=== PATIENT | male | born 1980 | race Caucasian/White ===

== ENCOUNTER 2021-08-03 16:35 | Inpatient (IN) | payer SELFPAY ==
[~2021-08-03] VITALS: Ht 182.8 cm; Wt 80.6 kg
--- OUTSIDE RECORDS SUMMARY | 2021-08-03 16:41 | XMS REPORT | Clinical Summary ---
Author Author [facility] Address Unknown Phone Unavailable Care Team Providers Care Meter Changes Records Clerk Name Role Phone Provider, Notinsystem MODEL USER PCP Unavail able Allergies No known active allergies Medications End Date Status Medication Sig Dispensed Refills Start Date Active hydrOXYzine (ATARAX) 25 Take 1 tablet 15 tablet 0 MG tabletIndications: (25 mg total) 9 Cough by mouth 3 (three) times daily as needed for Anxiety. Active benzonatate (TESSALON) Take 1 15 capsule 0 100 MG capsule (100 9 capsuleIndications: Cough mg total) by mouth 3 (three) times daily as needed for Cough. Active ondansetron (ZOFRAN-ODT) Take 2 30 tablet 0 0 4 MG disintegrating tablets (8 mg 9 tablet total) by mouth every 8 (eight) hours as needed for Nausea. Active Problems No known active problems Social History Date Tobacco Use Types Packs/Day Years Used Current Every Day Smoker Cigarettes 1 Smokeless Tobacco: Never Used Tobacco Cessation: Ready to Quit: Yes; C ounseling Given: Yes Comments Alcohol Use Standard Drinks/Week Not Currently 0 (1 standard drink = 0.6 o z pure alcohol) Control Partners Comments Sexually Active Not Currently Sex Assigned at Date Recorded Not on file Last Filed Vital Signs Reading Time Taken Comments Vital Sign 122/79 06/07/2019 11:35 PM CDT Blood Pressure 75 06/07/2019 11:35 PM CDT Pulse 36.8 C (98.2 F) 06/07/2019 11:35 PM CDT Temperature 16 06/07/2019 11:35 PM CDT Respiratory Rate 100% 06/07/2019 11:35 PM CDT Oxygen Saturation - - Inhaled Oxygen Concentration 75.3 kg (166 lb) 06/07/2019 9:27 PM CDT Weight 182.9 cm (6') 06/07/2019 9:27 PM CDT Height 22.51 06/07/2019 9:27 PM CDT Body Mass Index Plan of Treatment Health Maintenance Due Date Last Done Comments Varicella Vaccines (1 of 1981 2 - 2-dose childhood series) Pneumo-Vaccine: 65+Yrs (1 1986 of 2 - PPSV23) Pneumo-Vaccine: Peds (0-5 1986 Yrs) & At-Risk Patients (6-64 Yrs) (1 of 2 - PPSV23) COVID-19 Vaccine (1) 1992 Hepatitis C Screening 1998 DTaP,Tdap,and Td Vaccines 1999 (1 - Tdap) MMR Vaccines-Adult 1999 Influenza Vaccine (#1) 2021 HIB Vaccines Aged Out No longer eligible based on patient's age to complete this topic IPV Vaccines Aged Out No longer eligible based on patient's age to complete this topic Meningococcal Vaccine Aged Out No longer eligib le based on patient's age to complete this topic Rotavirus Vaccines Aged Out No longer eligible based on patient's age to complete this topic Results Not on filefrom Last 3 Months Insurance Type Payer Benefit Subscriber ID Effective Phone Address Plan / Dates Group MEDICAID POTENTIAL MEDICAID [id number] 2019- [address] Present [place] [id number] Advance Directives For more information, please contact: [phone] 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
[2021-08-03] MEDS ORDERED: NS IV 1000 ML 1,000 ML IV STA (17:00)
--- NOTE | 2021-08-03 17:15 | ED General ---
General Stated Complaint: R LEG PAIN, NAIL FUNGUS Source of Information: Patient Exam Limitations: No Limitations History of Present Illness Date Seen by Provider: Aug 03, 2021 Time Seen by Provider: 16:49 Initial Comments Here with report of right leg swelling and right foot pain and also a little left foot pain. He believes that he has nail fungus. This has been going on for a while. He has had history of DVT on the right and was on Xarelto for a while. He has been off of that. He currently lives here in [place] now. He has no local physician. Denies fever chills. Does complain of drainage to both feet with right greater than left and swelling on right greater than left. At first he did not want us to look under his socks and shoes because of concerns of fungus. Turns out he has weeping, gangrenous wounds to both feet distally involving almost all toes. Timing/Duration: Other (Been going on for several months but worse over the past week or 2) Severity: Moderate Associated Systoms: No Chest Pain, No Fever/Chills, No Nausea/Vomiting, No Shortness of Air, No Weakness Allergies and Home Medications Allergies Coded Allergies: No Known Drug Allergies (Unverified , 08/03/21) Patient Home Medication List Home Medication List Reviewed: Yes Review of Systems Review of Systems Constitutional: see HPI; No fever, No weakness EENTM: No nose congestion, No throat pain Respiratory: No cough, No short of breath Cardiovascular: No chest pain; edema Gastrointestinal: No nausea, No vomiting Genitourinary: no symptoms reported Musculoskeletal: joint pain, muscle pain Skin: change in color, lesions Psychiatric/Neurological: No Symptoms Reported All Other Systems Reviewed Negative Unless Noted: Yes Past Dgdrzpg-Parbit-Twinzk Hx Patient Social History Tobacco Use?: No Substance use?: No Alcohol Use?: Yes Alcohol Frequency: Once in a while Past Medical History Surgeries: No Respiratory: No Cardiac: Yes Deep Vein Thrombosis Neurological: No Genitourinary: No Musculoskeletal: No Endocrine: No Cancer: No Family Medical History Reviewed Nursing Family Hx No Pertinent Family Hx Physical Exam-Suspected Sepsis Physical Exam Vital Signs Capillary Refill : Height, Weight, BMI Height: '" Weight: lbs. oz. kg; BMI Method: General Appearance: Mild Distress, Other (Ill-appearing) HEENT: PERRL/EOMI, Pharynx Normal Neck: Non Tender, Supple Respiratory: Lungs Clear, Normal Breath Sounds Cardiovascular: No Murmur, Tachycardia Gastrointestinal: Non Tender, Soft Back: Normal Inspection, No CVA Tenderness, No Vertebral Tenderness Extremity: Other (Right leg with marked swelling in left leg with moderate swelling. Bilateral feet with distal gangrenous, wet, weeping wounds involving the middle toes. Blackened areas noted around each of the toes. Toenails grossly overgrown and angulated and fungally affected.) Neurologic/Psychiatric: Alert, Oriented x3 Skin: normal color, warm/dry Focused Exam Lactate Level 08/03/21 17:03: Lactic Acid Level 1.80 Lactic Acid Level Laboratory Tests Test 08/03/21 17:03 Lactic Acid Level 1.80 MMOL/L (0.50-2.00) Progress/Results/Core Measures Suspected Sepsis SIRS Temperature: Pulse: Respiratory Rate: Laboratory Tests 08/03/21 17:03: White Blood Count 5.7 Blood Pressure / Mean: 08/03/21 17:03: Lactic Acid Level 1.80 Laboratory Tests 08/03/21 17:03: Creatinine 0.78, INR Comment 1.0, Platelet Count 145, Total Bilirubin 1.4H Results/Orders Lab Results Laboratory Tests Test 08/03/21 17:03 08/03/21 18:16 Range/Units White Blood Count 5.7 4.3-11.0 10^3/uL Red Blood Count 3.43 L 4.30-5.52 10^6/uL Hemoglobin 13.9 13.3-17.7 g/dL Hematocrit 38 L 40-54 % Mean Corpuscular Volume 111 H 80-99 fL Mean Corpuscular Hemoglobin 41 H 25-34 pg Mean Corpuscular Hemoglobin Concent 36 32-36 g/dL Red Cell Distribution Width 13.2 10.0-14.5 % Platelet Count 145 130-400 10^3/uL Mean Platelet Volume 9.6 9.0-12.2 fL Immature Granulocyte % (Auto) 0 % Neutrophils (%) (Auto) 69 42-75 % Lymphocytes (%) (Auto) 22 12-44 % Monocytes (%) (Auto) 7 0-12 % Eosinophils (%) (Auto) 2 0-10 % Basophils (%) (Auto) 1 0-10 % Neutrophils # (Auto) 4.0 1.8-7.8 10^3/uL Lymphocytes # (Auto) 1.3 1.0-4.0 10^3/uL Monocytes # (Auto) 0.4 0.0-1.0 10^3/uL Eosinophils # (Auto) 0.1 0.0-0.3 10^3/uL Basophils # (Auto) 0.0 0.0-0.1 10^3/uL Immature Granulocyte # (Auto) 0.0 0.0-0.1 10^3/uL Prothrombin Time 13.8 12.2-14.7 SEC INR Comment 1.0 0.8-1.4 Activated Partial Thromboplast Time 31 24-35 SEC Sodium Level 133 L 135-145 MMOL/L Potassium Level 3.7 3.6-5.0 MMOL/L Chloride Level 98 98-107 MMOL/L Carbon Dioxide Level 21 21-32 MMOL/L Anion Gap 14 5-14 MMOL/L Blood Urea Nitrogen 12 7-18 MG/DL Creatinine 0.78 0.60-1.30 MG/DL Estimat Glomerular Filtration Rate 110 BUN/Creatinine Ratio 15 Glucose Level 116 H 70-105 MG/DL Lactic Acid Level 1.80 0.50-2.00 MMOL/L Calcium Level 9.2 8.5-10.1 MG/DL Corrected Calcium 9.4 8.5-10.1 MG/DL Total Bilirubin 1.4 H 0.1-1.0 MG/DL Aspartate Amino Transf (AST/SGOT) 20 5-34 U/L Alanine Aminotransferase (ALT/SGPT) 17 0-55 U/L Alkaline Phosphatase 111 40-136 U/L Total Protein 6.7 6.4-8.2 GM/DL Albumin 3.7 3.2-4.5 GM/DL My Orders Orders - CURT HIGH MD Cbc With Automated Diff (08/03/21 17:00) Comprehensive Metabolic Panel (08/03/21 17:00) Blood Culture (08/03/21 17:00) Sputum Culture (08/03/21 17:00) Urinalysis (08/03/21 17:00) Urine Culture (08/03/21 17:00) Protime With Inr (08/03/21 17:00) Partial Thromboplastin Time (08/03/21 17:00) Chest 1 View, Ap/Pa Only (08/03/21 17:00) Ed Iv/Invasive Line Start (08/03/21 17:00) Vital Signs Adult Sepsis Patie Q15M (08/03/21 17:00) O2 (08/03/21 17:00) Remove Rings In Anticipation O (08/03/21 17:00) Lactic Acid Analyzer (08/03/21 17:00) Ns Iv 1000 Ml (Sodium Chloride 0.9%) (08/03/21 17:00) Wound Culture (08/03/21 17:06) Wound Culture (08/03/21 17:06) Fentanyl Inj (Sublimaze Injection) (08/03/21 18:10) Fibrin Degradation Products (08/03/21 18:17) Vital Signs/I&O Capillary Refill : Progress Note : Progress Note Seen and evaluated. Exam of bilateral lower extremities is very concerning for wet gangrene and cellulitis. He states this has been going on for quite a while but seems to have worsened recently especially with the right leg swelling. He is tachycardic but afebrile. Is ill-appearing. IV, labs, blood cultures and lactic acid ordered. Wound culture from bilateral feet from weeping wounds. Normal saline 1 L bolus ordered. Monitor patient. 1820: I have discussed the case with both Dr. Wang who accepts patient for admission and Dr. Fernandez who will see him in consult. Patient has reassuring labs currently. Does have terrible looking wounds to the feet that may need debridement. Dr. Fernandez will evaluate tomorrow and take to the OR if needed. Request n.p.o. after midnight. Patient requests mechanical soft diet because he has no teeth. We will continue IV fluids. I did discuss with Dr. Wang regarding anticoagulation due to concerns of DVT. We have added D-dimer. Lovenox one-time dose will be given with estimated weight at approximately 175 pounds or 80 kg for 80 units of Lovenox subcu. All findings and concerns discussed with patient who agrees with plan. Admit, inpatient status. Fentanyl 50 mcg IV given for pain for the feet. Diagnostic Imaging Diagonstic Imaging: Xray Plain Films/CT/US/NM/MRI: chest Comments [facility]. [place], [place] NAME: SUNG ROSEMICHELLE Neumann [facility] REC#: [id number] PT STATUS: REG ER : 1980 PHYSICIAN: CURT HIGH MD ADMIT DATE: 08/03/21/ER Draft Date of Exam:08/03/21 CHEST 1 VIEW, AP/PA ONLY INDICATION: Sepsis. FINDINGS: The heart size is normal. The lungs are clear. There is no pleural effusion or pneumothorax. The mediastinum is unremarkable. IMPRESSION: No acute cardiopulmonary abnormality. Dictated on workstation # [id number] Dict: 08/03/21 1718 Trans: 08/03/21 1720 [id number] Interpreted by: BETSY RAMIREZ MD Electronically signed by: Departure Communication (Admissions) Time/Spoke to Admitting Phy: 18:17 Time/Spoke to Consulting Phy: 18:20 Impression Primary Impression: Wound, open, foot Qualified Codes: S91.309A - Unspecified open wound, unspecified foot, initial encounter Additional Impression: Sepsis Qualified Codes: A41.9 - Sepsis, unspecified organism Disposition: ADMITTED INPATIENT Condition: Stable Admissions Decision to Admit Reason: Admit from ER (General) Decision to Admit/Date: Aug 03, 2021 Time/Decision to Admit Time: 18:17 Departure-Patient Inst. Referrals: NO,LOCAL PHYSICIAN (PCP/Family) Primary Care Physician CURT HIGH MD Aug 03, 2021 17:15
--- NOTE | 2021-08-03 17:21 | Diagnostic Imaging Report ---
INDICATION: Sepsis. FINDINGS: The heart size is normal. The lungs are clear. There is no pleural effusion or pneumothorax. The mediastinum is unremarkable. IMPRESSION: No acute cardiopulmonary abnormality. Dictated by: Dictated on workstation # [id number]
[2021-08-03 17:29] LABS: BASOPHILS % (AUTO) 1 % (0-10); EOSINOPHILS # (AUTO) 0.1 10^3/uL (0.0-0.3); EOSINOPHILS % (AUTO) 2 % (0-10); HEMATOCRIT 38 % (40-54); HEMOGLOBIN 13.9 g/dL (13.3-17.7); LYMPHOCYTES # (AUTO) 1.3 10^3/uL (1.0-4.0); LYMPHOCYTES % (AUTO) 22 % (12-44); MEAN CORPUSCULAR HEMOGLOBIN 41 pg (25-34); MEAN CORPUSCULAR HGB CONC 36 g/dL (32-36); MEAN CORPUSCULAR VOLUME 111 fL (80-99); MEAN PLATELET VOLUME 9.6 fL (9.0-12.2); MONOCYTES # (AUTO) 0.4 10^3/uL (0.0-1.0); MONOCYTES % (AUTO) 7 % (0-12); NEUTROPHILS % (AUTO) 69 % (42-75); PLATELET COUNT 145 10^3/uL (130-400); WHITE BLOOD COUNT 5.7 10^3/uL (4.3-11.0)
[2021-08-03 17:35] LABS: PROTHROMBIN TIME PATIENT 13.8 SEC (12.2-14.7)
[2021-08-03 17:41] LABS: ALBUMIN 3.7 GM/DL (3.2-4.5); BILIRUBIN,TOTAL 1.4 MG/DL (0.1-1.0); CALCIUM 9.2 MG/DL (8.5-10.1); CREATININE SERUM 0.78 MG/DL (0.60-1.30); POTASSIUM 3.7 MMOL/L (3.6-5.0); TOTAL PROTEIN 6.7 GM/DL (6.4-8.2)
[2021-08-03] MEDS ORDERED: fentaNYL INJ 100 MCG/2 ML AMP IVP STA (18:10)
[2021-08-03 18:23] LABS: CLARITY,URINE CLEAR; COLOR,URINE ORANGE; GLUCOSE, URINE (UA) NEGATIVE (NEGATIVE); KETONES,URINE TRACE (NEGATIVE); LEUKOCYTE ESTERASE ,URINE NEGATIVE (NEGATIVE); NITRITE,URINE POSITIVE (NEGATIVE); PH,URINE 6.5 (5-9); PROTEIN,URINE 1+ (NEGATIVE)
[2021-08-03] MEDS ORDERED: ENOXAPARIN 80 MG/0.8 ML (LOVENOX) SYR SC ONE (18:30)
[2021-08-03 18:36] LABS: BACTERIA,URINE NEGATIVE /HPF; BILIRUBIN,URINE 2+ (NEGATIVE); RBC,URINE RARE /HPF; WBC,URINE RARE /HPF
[2021-08-03 20:01] VITALS: BP 116/72
[2021-08-03] MEDS ORDERED: fentaNYL INJ 100 MCG/2 ML AMP IV PRN (20:30)
[2021-08-03] MEDS ORDERED: ONDANSETRON 4 MG/2 ML (SDV) Z0FRAN IV PRN ×2 (20:30→22:30)
[2021-08-03] MEDS ORDERED: VANCOMYCIN 1250 MG/NS 250 ML IVPB IV NR ×2 (20:30)
[2021-08-03] MEDS ORDERED: PIPERACILLIN/TAZO 4.5 GM/NS 100 ML IV NR ×2 (20:30)
[2021-08-03] MEDS ORDERED: CATHETER FLUSH 10 ML SYR IV PRN (20:30)
[2021-08-03] MEDS: NS IV 1000 ML 1,000 ML IV SCH (22:10)
[2021-08-03] MEDS ORDERED: MILK OF MAGNESIA 400 MG/5 ML 30 ML UDC PO PRN (22:30)
[2021-08-03] MEDS ORDERED: BENZONATATE 100 MG (TESSALON) CAPSULE PO PRN (22:30)
[2021-08-03] MEDS ORDERED: ANTACID SUSP 30 ML UDC (MYLANTA) PO PRN (22:30)
[2021-08-03] MEDS: morphine INJ 4 MG/ML 1 ML (VIAL/SYRINGE) IVP PRN (22:34)
[2021-08-04] VITALS (7 sets, daily range): BP systolic 101–131; BP diastolic 56–78
[2021-08-04] MEDS: morphine INJ 4 MG/ML 1 ML (VIAL/SYRINGE) IVP PRN ×8 (00:32→22:33)
[2021-08-04] MEDS: NS IV 1000 ML 1,000 ML IV SCH ×4 (05:19→22:36)
[2021-08-04] MEDS: PIPERACILLIN/TAZO 4.5 GM/NS 100 ML IV SCH ×6 (05:20→18:48)
[2021-08-04 05:44] LABS: EOSINOPHILS # (AUTO) 0.2 10^3/uL (0.0-0.3); MEAN CORPUSCULAR HEMOGLOBIN 40 pg (25-34); MEAN CORPUSCULAR VOLUME 112 fL (80-99)
[2021-08-04 05:46] LABS: BASOPHILS % (AUTO) 1 % (0-10); EOSINOPHILS % (AUTO) 3 % (0-10); HEMATOCRIT 35 % (40-54); HEMOGLOBIN 12.5 g/dL (13.3-17.7); LYMPHOCYTES # (AUTO) 2.1 10^3/uL (1.0-4.0); LYMPHOCYTES % (AUTO) 36 % (12-44); MEAN CORPUSCULAR HGB CONC 36 g/dL (32-36); MONOCYTES # (AUTO) 0.4 10^3/uL (0.0-1.0); MONOCYTES % (AUTO) 6 % (0-12); NEUTROPHILS # (AUTO) 3.1 10^3/uL (1.8-7.8); NEUTROPHILS % (AUTO) 54 % (42-75); PLATELET COUNT 133 10^3/uL (130-400); WHITE BLOOD COUNT 5.7 10^3/uL (4.3-11.0)
[2021-08-04 05:54] LABS: POTASSIUM 3.7 MMOL/L (3.6-5.0)
[2021-08-04 05:55] LABS: CALCIUM 8.3 MG/DL (8.5-10.1)
[2021-08-04 05:59] LABS: CREATININE SERUM 0.68 MG/DL (0.60-1.30)
[2021-08-04] MEDS: VANCOMYCIN 1 GM/NS 250 ML IVPB IV SCH ×4 (07:56→20:42)
--- NOTE | 2021-08-04 08:08 | Consultation - Surgery ---
BROOK LYLE 08/04/21 0808: History of Present Illness History of Present Illness Patient Consulted On(bimal/time) 08/04/21 08:02 Time Seen by Provider: 07:30 History of Present Illness 41 yo M presents to the ED with right and left leg swelling and foot pain with a PMH of DVT. He says that this fungus has been going on for a few months and has not seen a doctor for a while because he though it was just fungus. He has been cleaning it at home, and says that he reports no changes in his pain. Allergies and Home Medications Allergies Coded Allergies: No Known Drug Allergies (Unverified , 08/04/21) He denies allergies to drugs and food, says he has seasonal allergies Past Fmmcknb-Ilmrzt-Vbafgx Hx Patient Social History Smoking Status: Current Everyday Smoker Alcohol Use?: Yes Have you traveled recently?: No Surgeries History of Surgeries: No Surgeries: Abdominal (hernia repair at 5yo) Respiratory History of Respiratory Disorde: No Cardiovascular History of Cardiac Disorders: Yes Cardiac Disorders: Deep Vein Thrombosis Neurological History of Neurological Disord: No Genitourinary History of Genitourinary Disor: No Musculoskeletal History of Musculoskeletal Dis: No Endocrine History of Endocrine Disorders: No Cancer History of Cancer: No Integumentary History of Skin or Integumenta: Yes Skin/Integumentary Disorders: Psoriasis Family Medical History Significant Family History: Other Conditions/Hx (one or two cancers in grandmothers side of family, pt is unsure) Review of Systems-General Constitutional: No fever Respiratory: No dyspnea on exertion, No short of breath, No wheezing Cardiovascular: No chest pain, No palpitations Gastrointestinal: No abdominal pain, No diarrhea, No nausea, No vomiting; other (normally has a bowel movement every 3 to 5 days) Physical Exam-General Problems Physical Exam Vital Signs Vital Signs - First Documented 08/03/21 16:44 Temp 37.5 Pulse 102 Resp 18 B/P (MAP) 128/81 (97) Pulse Ox 98 O2 Delivery Room Air Capillary Refill : Less Than 3 Seconds General Appearance: WD/WN, no apparent distress HEENT: PERRL/EOMI Respiratory: lungs clear, normal breath sounds, no respiratory distress, no accessory muscle use Cardiovascular: regular rate, rhythm Gastrointestinal: normal bowel sounds, non tender, soft Rectal: deferred Extremities: inflammation, pedal edema, swelling (extremely sensitive to the touch on both feet), other Neurologic/Psychiatric: bow maker gift wrapping II-XII nml as tested, alert, normal mood/affect, oriented x 3 Skin: other (psorasis of both elbows and right anterior thigh ) Data Review Labs Laboratory Tests 08/03/21 17:03: White Blood Count 5.7, Red Blood Count 3.43L, Hemoglobin 13.9, Hematocrit 38L, Mean Corpuscular Volume 111H, Mean Corpuscular Hemoglobin 41H, Mean Corpuscular Hemoglobin Concent 36, Red Cell Distribution Width 13.2, Platelet Count 145, Mean Platelet Volume 9.6, Immature Granulocyte % (Auto) 0, Neutrophils (%) (Auto) 69, Lymphocytes (%) (Auto) 22, Monocytes (%) (Auto) 7, Eosinophils (%) (Auto) 2, Basophils (%) (Auto) 1, Neutrophils # (Auto) 4.0, Lymphocytes # (Auto) 1.3, Monocytes # (Auto) 0.4, Eosinophils # (Auto) 0.1, Basophils # (Auto) 0.0, Immature Granulocyte # (Auto) 0.0, Prothrombin Time 13.8, INR Comment 1.0, Activated Partial Thromboplast Time 31, D-Dimer 0.92H, Sodium Level 133L, Potassium Level 3.7, Chloride Level 98, Carbon Dioxide Level 21, Anion Gap 14, Blood Urea Nitrogen 12, Creatinine 0.78, Estimat Glomerular Filtration Rate 110, BUN/Creatinine Ratio 15, Glucose Level 116H, Lactic Acid Level 1.80, Calcium Level 9.2, Corrected Calcium 9.4, Total Bilirubin 1.4H, Aspartate Amino Transf (AST/SGOT) 20, Alanine Aminotransferase (ALT/SGPT) 17, Alkaline Phosphatase 111, Total Protein 6.7, Albumin 3.7 08/03/21 18:16: Urine Color ORANGE, Urine Clarity CLEAR, Urine pH 6.5, Urine Specific [place] 1.025H, Urine Protein 1+H, Urine Glucose (UA) NEGATIVE, Urine Ketones TRACEH, Urine Nitrite POSITIVEH, Urine Bilirubin 2+H, Urine Urobilinogen 2.0, Urine Leukocyte Esterase NEGATIVE, Urine RBC (Auto) NEGATIVE, Urine RBC RARE, Urine WBC RARE, Urine Squamous Epithelial Cells NONE, Urine Crystals NONE, Urine Bacteria NEGATIVE, Urine Casts NONE, Urine Mucus SMALLH, Urine Culture Indicated NO 08/04/21 05:22: White Blood Count 5.7, Red Blood Count 3.10L, Hemoglobin 12.5L, Hematocrit 35L, Mean Corpuscular Volume 112H, Mean Corpuscular Hemoglobin 40H, Mean Corpuscular Hemoglobin Concent 36, Red Cell Distribution Width 13.2, Platelet Count 133, Mean Platelet Volume 9.0, Immature Granulocyte % (Auto) 0, Neutrophils (%) (Auto) 54, Lymphocytes (%) (Auto) 36, Monocytes (%) (Auto) 6, Eosinophils (%) (Auto) 3, Basophils (%) (Auto) 1, Neutrophils # (Auto) 3.1, Lymphocytes # (Auto) 2.1, Monocytes # (Auto) 0.4, Eosinophils # (Auto) 0.2, Basophils # (Auto) 0.0, Immature Granulocyte # (Auto) 0.0, Sodium Level 135, Potassium Level 3.7, Chloride Level 104, Carbon Dioxide Level 19L, Anion Gap 12, Blood Urea Nitrogen 10, Creatinine 0.68, Estimat Glomerular Filtration Rate 129, BUN/Creatinine Ratio 15, Glucose Level 85, Calcium Level 8.3L, Percent Immature Platelet Fraction 2.0 Assessment/Plan Assessment/Plan Assessment/Plan gangrene: both feet are extremely painful to the touch, treating with rodney Baldwin. Xray and U/S of LE B/L ordered. Will monitor today to see if infection improves, but will likely need amputation. History of DVT: Lovenox started as his D-dimer is .92 Psoriasis CHASE FERNANDEZ DO 08/04/21 1224: History of Present Illness History of Present Illness History of Present Illness Patient is a 41-year-old male who has had issues with his feet for quite some time. He is unsure the exact pain. Patient has been having pain worse on the right foot which she states is severe with the left also being painful. Patient has drainage from both feet. This is increased over the last few days. He states that he has been doctoring them at home trying to keep them clean and dry. Patient with history of blood clots he feels that his right leg is swollen up and this has gotten worse as well. He feels he may have a blood clot again. Patient with no other complaints at this time. Denies any nausea vomiting fever sweats chills shortness of breath or chest pain. Allergies and Home Medications Allergies Coded Allergies: No Known Drug Allergies (Unverified , 08/04/21) He denies allergies to drugs and food, says he has seasonal allergies Patient Home Medication List Home Medication List Reviewed: Yes Past Xefpdur-Sclusq-Foyxkc Hx Patient Social History Smoking Status: Current Everyday Smoker Seasonal Allergies Seasonal Allergies: Yes Surgeries Surgeries: Abdominal (hernia repair at 5yo) Reviewed Nursing Assessment Reviewed/Agree w Nursing PMH: Yes Family Medical History Significant Family History: No Pertinent Family Hx, Other Conditions/Hx (one or two cancers in grandmothers side of family, pt is unsure) Review of Systems-General Constitutional: No fever, No weakness EENTM: No blurred vision, No double vision Respiratory: No dyspnea on exertion, No short of breath Cardiovascular: No chest pain, No palpitations Gastrointestinal: No diarrhea, No nausea, No vomiting Genitourinary: No decreased output Musculoskeletal: No back pain, No joint pain Skin: change in color, change in hair/nails, dryness Psychiatric/Neurological: Denies Anxiety, Denies Depressed, Denies Emotional Problems All Other Systems Reviewed Negative Unless Noted: Yes (Negative excepted noted.) Physical Exam-General Problems Physical Exam General Appearance: WD/WN, no apparent distress (Laying in bed) HEENT: PERRL/EOMI, normal ENT inspection Neck: non-tender, supple Respiratory: chest non-tender, no respiratory distress, no accessory muscle use Cardiovascular: regular rate, rhythm, no JVD Gastrointestinal: normal bowel sounds, non tender, soft Rectal: deferred Back: no CVA tenderness, no vertebral tenderness Extremities: inflammation, pedal edema, swelling (extremely sensitive to the touch on both feet), other (Patient with foul-smelling odor from feet. Patient with some scant purulent drainage from bilateral toes a lot of skin buildup and possible wet gangrene changes along with questionable ischemic changes, deformed nails with onychomycosis) Neurologic/Psychiatric: bow maker gift wrapping II-XII nml as tested, alert, normal mood/affect, oriented x 3 Skin: other (Patient with changes to feet as noted above ) Lymphatic: no adenopathy Assessment/Plan Assessment/Plan Assessment/Plan Bilateral foot wounds with possible ischemic changes to toes bilaterally and possible wet gangrene History of DVT We will do Hibiclens soaks to the feet today to try to visualize the feet better in terms of if this is more wet green or soft tissue infection. We will get bilateral x-rays of the feet Continue IV antibiotics Patient may need amputation of bilateral forefoot's if not higher. He wants to try everything we can before amputating. So we will give antibiotics time to work and also get ultrasound/Doppler of lower extremities to further evaluate blood supply. Even in doing so this may not prevent need for amputation which patient understands. Patient also be started on Cleocin. Will let patient have clear liquid diet today. Patient understands if this has any worsening that we may need to go emergently. Will keep patient n.p.o. after midnight just in case we need to do something tomorrow. If needs to be on anticoagulation would prefer patient to be on heparin drip Supervisory-Addendum Brief Verification & Attestation Participated in pt care: history, MDM, physical Personally performed: exam, history, MDM, supervision of care Care discussed with: Medical Student Procedures: n/a Results interpretation: Verified all documentation Verification and Attestation of Medical Student E/M Service A medical student performed and documented this service in my presence. I reviewed and verified all information documented by the medical student and made modifications to such information, when appropriate. I personally performed the physical exam and medical decision making. Chase Fernandez, Aug 04, 2021,12:37 BROOK LYLE Aug 04, 2021 08:08 CHASE FERNANDEZ DO Aug 04, 2021 12:24
--- NOTE | 2021-08-04 08:13 | History & Physical-Hospitalist ---
History of Present Illness HPI/Chief Complaint Patient is a 41-year-old male who presented to the emergency department due to bilateral foot pain. He is unsure when this started but knows it is been worsening over the past few days and decided to seek evaluation in the ER due to the pain. He believes that he just had a fungal infection. Upon examination by the ER physician it was recognized that he had gangrenous wounds on both of his feet. He met sepsis criteria and due to the significant wounds he was admitted for IV antibiotics and surgical evaluation for possible debridement. This morning he reports feeling okay but still having pain. He h as done better with morphine instead of fentanyl. His only other concern is about being hungry. Source: patient Date Seen 08/04/21 Time Seen by a Provider: 08:08 Attending Physician Lucy Wang MD PCP No,Local Physician Referring Physician Date of Admission Aug 03, 2021 at 18:19 Home Medications & Allergies Home Medications Reviewed patient Home Medication Reconciliation performed by pharmacy medication reconciliations factory maintenance technician and/or nursing. Patients Allergies have been reviewed. Allergies Allergies Coded Allergies No Known Drug Allergies (Ftwgnomkii90/8/21) Past Dkagxcj-Qrteit-Mufvzg Hx Patient Social History Marrital Status: single Employed/Student: employed Tobacco Use?: Yes Tobacco type used: Cigarettes Smoking Status: Current Everyday Smoker (1ppd) Use of E-Cig and/or Vaping dev: No Substance use?: No Alcohol Use?: Yes Alcohol type: Hard Liquor Alcohol Frequency: Daily Pt feels they are or have been: No Immunizations Up To Date Tetanus Booster (TDap): More Than 5 Years Hepatitis A: Yes Hepatitis B: Yes Current Status Advance Directives: No Communicates: Verbally Primary Language: Tanzanian Preferred Spoken Language: Tanzanian Is interpretation needed?: No Implanted or Applied Medical D: None Past Medical History Deep Vein Thrombosis Family Medical History Reviewed Nursing Family Hx No Pertinent Family Hx Review of Systems Constitutional: No chills, No fever EENTM: no symptoms reported Respiratory: no symptoms reported Cardiovascular: No chest pain, No palpitations Gastrointestinal: no symptoms reported Genitourinary: no symptoms reported Musculoskeletal: no symptoms reported Skin: see HPI Psychiatric/Neurological: No Symptoms Reported Physical Exam Physical Exam Vital Signs Vital Signs - First Documented 08/03/21 16:44 Temp 37.5 Pulse 102 Resp 18 B/P (MAP) 128/81 (97) Pulse Ox 98 O2 Delivery Room Air Capillary Refill : Less Than 3 Seconds Height, Weight, BMI Height: '" Weight: lbs. oz. kg; 25.49 BMI Method: General Appearance: No Apparent Distress, WD/WN HEENT: PERRL/EOMI, Moist Mucous Membranes; No Scleral Icterus (L), No Scleral Icterus (R); Other (edentulous) Neck: Normal Inspection, Supple Respiratory: Lungs Clear, No Accessory Muscle Use, No Respiratory Distress Cardiovascular: Regular Rate, Rhythm, No Murmur Gastrointestinal: Normal Bowel Sounds, Non Tender, Soft Extremity: Other (bilateral edematous lower extremities with gangerous wounds at bases of toes and significant onychomycosis) Neurologic/Psychiatric: Alert, Oriented x3, Normal Mood/Affect Results Results/Procedures Labs Laboratory Tests 08/03/21 17:03 08/04/21 05:22 Patient resulted labs reviewed. Imaging: Reviewed Imaging Report Imaging [facility] [place], [place] NAME: RADHA ROSE [facility] REC#: [id number] PT STATUS: ADM IN : 1980 PHYSICIAN: CURT HIGH MD ADMIT DATE: 08/03/21 Signed Date of Exam:08/03/21 CHEST 1 VIEW, AP/PA ONLY INDICATION: Sepsis. FINDINGS: The heart size is normal. The lungs are clear. There is no pleural effusion or pneumothorax. The mediastinum is unremarkable. IMPRESSION: No acute cardiopulmonary abnormality. Dictated by: Dictated on workstation # [id number] Dict: 08/03/211717 Trans: 08/03/211911 AS6 [id number] Interpreted by: BETSY RAMIREZ MD Electronically signed by: BETSY RAMIREZ MD 08/03/211911 Assessment/Plan Admission Diagnosis Sepsis due to gangrenous wounds on feet Admission Status: Inpatient Order (span 2 midnights) Reason for Inpatient Admission: see below Assessment and Plan Sepsis due to gangrenous wounds on feet Surgery consulted, appreciate recs May need debridement Await cultures Continue Vanc and Zosyn Us ordered to evaluate for DVT and PAD Tobacco abuse Encouraged cessation, he does not want to quit at this time Alcohol use Hyperbilirubinemia Reports daily alcohol use No evidence of withdrawal pretty macrocytic and mild anemia today- monitor DVT ppx: got therapeutic lovenox last night, if no surgery will continue until usg back Diagnosis/Problems Diagnosis/Problems (1) Sepsis Status: Acute Qualifiers: Sepsis type: sepsis due to unspecified organism Sepsis acute organ dysfunction status: without acute organ dysfunction Qualified Codes: A41.9 - Sepsis, unspecified organism (2) Gangrene Status: Acute (3) Tobacco abuse Status: Chronic (4) Alcohol abuse Status: Chronic (5) History of DVT (deep vein thrombosis) (6) Macrocytosis LUCY WANG MD Aug 04, 2021 08:13
--- NOTE | 2021-08-04 10:01 | Diagnostic Imaging Report ---
INDICATION: Gangrene, infection. EXAMINATION: Bilateral feet 08/04/2021 FINDINGS: 3 views of each foot. There is diffuse osteopenia. There are no acute fractures or dislocations. The toes are limited due to overlying irregularities, perhaps due to superimposed nails. Correlate clinically. No definite underlying destructive change is seen to suggest osteomyelitis. IMPRESSION: 1. Marked osteopenia limiting evaluation with no destructive process appreciated. If there is continued concern for osteomyelitis, MRI with and without contrast could provide further characterization, as clinically indicated. Dictated by: Dictated on workstation # [id number]
[2021-08-04] MEDS: CLINDAMYCIN 600 MG/50 ML IVPB 50 ML IV SCH ×2 (14:23→22:36)
--- NOTE | 2021-08-04 16:15 | Diagnostic Imaging Report ---
PROCEDURE: US Venous Lower Ext Luan. TECHNIQUE: Multiple real-time grayscale images were obtained over the lower extremities in various projections, bilaterally. Additional duplex Doppler and color Doppler images were also obtained. INDICATION: Bilateral lower extremity pain and edema. Foot wounds. COMPARISON: None. FINDINGS: Occlusive deep vein thrombus is seen within the right superficial femoral, popliteal and calf vessels of the right lower extremity. These veins demonstrate noncompressibility. There is normal compressibility and color Doppler filling in the right common femoral and profunda femoris veins. There is partially occlusive thrombus within the left superficial femoral and popliteal veins which demonstrate partial compressibility. Normal color Doppler filling is seen in the calf vessels of the left lower extremity. There is also normal color Doppler filling and compressibility in the left common femoral and profunda femoris veins. IMPRESSION: 1. Occlusive deep vein thrombus in the right superficial femoral, popliteal and calf veins of the right lower extremity. 2. Partially occlusive thrombus involving the left superficial femoral and popliteal veins. Dictated by: Dictated on workstation # [id number]
--- NOTE | 2021-08-04 16:23 | Diagnostic Imaging Report ---
PROCEDURE: US Bilateral lower extremity arterial. TECHNIQUE: Multiple real-time grayscale images are obtained through both lower extremity arterial systems with color Doppler imaging and color Doppler spectral analysis. INDICATION: Bilateral foot wounds. COMPARISON: None. FINDINGS: Normal triphasic waveforms are seen in the right common femoral, profunda femoris, superficial femoral and popliteal arteries. Mildly elevated flow velocities are seen in the right common femoral artery without focal stenosis. Monophasic waveforms are seen in the right anterior tibial, posterior tibial and dorsalis pedis arteries. Monophasic waveforms are seen in the left common femoral and profunda femoris arteries. These arteries demonstrate normal peak systolic velocities. There is absence of flow within the left superficial femoral and popliteal arteries. Reconstitution of flow is seen within the calf vessels with monophasic waveforms in the anterior tibial, posterior tibial and dorsalis pedis arteries. Flow velocities are diminished in the left lower extremity calf arteries. IMPRESSION: 1. Complete occlusion of the left superficial femoral and popliteal arteries with reconstitution of flow in the calf vessels of the left lower extremity. Etiology is indeterminate and further evaluation may be considered with CTA of the abdomen and pelvis with bilateral lower extremity runoff. 2. Monophasic waveforms in the arteries of the right calf. The more proximal arteries in the right lower extremity demonstrate normal triphasic waveforms without focal stenosis. Dictated by: Dictated on workstation # [id number]
[2021-08-04] MEDS: HEParin 1000 UNIT/ML (10ML VIAL) FOR BOLUS IV SCH (17:39)
[2021-08-04 17:41] LABS: HEMOGLOBIN 11.6 g/dL (13.3-17.7)
[2021-08-04 17:42] LABS: MEAN PLATELET VOLUME 9.4 fL (9.0-12.2)
[2021-08-04] MEDS: HEParin DRIP 25000 UNIT/500ML 500 ML IV SCH (17:56)
[2021-08-04 18:06] LABS: INR 1.1 (0.8-1.4); PROTHROMBIN TIME PATIENT 14.4 SEC (12.2-14.7)
[2021-08-05] VITALS (12 sets, daily range): BP systolic 96–122; BP diastolic 54–82
[2021-08-05] MEDS: PIPERACILLIN/TAZO 4.5 GM/NS 100 ML IV SCH ×6 (03:23→22:00)
[2021-08-05] MEDS: NS IV 1000 ML 1,000 ML IV SCH ×3 (03:24→22:09)
[2021-08-05] MEDS: CLINDAMYCIN 600 MG/50 ML IVPB 50 ML IV SCH ×2 (06:24→18:37)
[2021-08-05] MEDS: morphine INJ 4 MG/ML 1 ML (VIAL/SYRINGE) IVP PRN ×4 (06:25→22:00)
[2021-08-05 06:27] LABS: HEMOGLOBIN 11.5 g/dL (13.3-17.7)
[2021-08-05 06:28] LABS: MEAN PLATELET VOLUME 10.3 fL (9.0-12.2); WHITE BLOOD COUNT 3.6 10^3/uL (4.3-11.0)
[2021-08-05 06:34] LABS: POTASSIUM 3.8 MMOL/L (3.6-5.0)
[2021-08-05 06:35] LABS: CALCIUM 8.1 MG/DL (8.5-10.1)
[2021-08-05 06:39] LABS: CREATININE SERUM 0.61 MG/DL (0.60-1.30)
--- NOTE | 2021-08-05 07:58 | Progress Note - Surgery ---
BROOK LYLE 08/05/21 0758: Subjective Time Seen by a Provider: 07:30 Subjective/Events-last exam Pt reports that he feels some improvement to his legs since adding clindamycin. Doppler study showed R LE DVT and partial occlusion of L LE, foot x ray was not conclusive. He denies fever, CP, SOB, heart palpitations, N/V, diarrhea, and normal bowel movements usually 1 every 3 to 5 days. He has cough with mucus which he has been dealing with for some time, and he is anxious. Focused Exam Lactate Level 08/03/21 17:03: Lactic Acid Level 1.80 Objective Exam Vital Signs Date Time Temp Pulse Resp B/P (MAP) Pulse Ox O2 Delivery O2 Flow Rate FiO2 08/05/21 03:24 36.2 62 18 107/64 (78) 100 Room Air 08/04/21 23:50 36.5 63 20 105/67 (80) 99 Room Air 08/04/21 20:59 Room Air 08/04/21 19:21 36.7 62 18 101/56 (71) 96 Room Air 08/04/21 16:45 36.5 69 18 105/56 (72) 97 Room Air 08/04/21 12:24 36.3 86 18 103/64 (77) 97 Room Air 08/04/21 08:05 36.9 96 18 115/62 (79) 97 Room Air I & O 08/05/21 07:00 Intake Total 1848 ml Output Total 2895 ml Balance -1047 ml Capillary Refill : Less Than 3 Seconds General Appearance: No Apparent Distress, WD/WN HEENT: PERRL/EOMI, Moist Mucous Membranes; No Scleral Icterus (L), No Scleral Icterus (R); Other (edentulous) Neck: Normal Inspection, Supple Respiratory: Lungs Clear, No Accessory Muscle Use, No Respiratory Distress Cardiovascular: Regular Rate, Rhythm, No Murmur Gastrointestinal: normal bowel sounds, non tender, soft Extremity: Inflammation, Swelling, Other (bilateral edematous lower extremities with gangerous wounds at bases of toes and significant onychomycosis) Neurologic/Psychiatric: Alert, Oriented x3, Normal Mood/Affect Results Lab Laboratory Tests 08/04/21 17:30: White Blood Count 4.0L, Red Blood Count 2.87L, Hemoglobin 11.6L, Hematocrit 33L, Mean Corpuscular Volume 115H, Mean Corpuscular Hemoglobin 40H, Mean Corpuscular Hemoglobin Concent 35, Red Cell Distribution Width 13.5, Platelet Count 107L, Mean Platelet Volume 9.4, Percent Immature Platelet Fraction 2.3, Prothrombin Time 14.4, INR Comment 1.1, Activated Partial Thromboplast Time 33 08/04/21 22:40: Activated Partial Thromboplast Time 123*H 08/05/21 06:18: White Blood Count 3.6L, Red Blood Count 2.82L, Hemoglobin 11.5L, Hematocrit 33L, Mean Corpuscular Volume 117H, Mean Corpuscular Hemoglobin 41H, Mean Corpuscular Hemoglobin Concent 35, Red Cell Distribution Width 13.5, Platelet Count 97L, Mean Platelet Volume 10.3, Percent Immature Platelet Fraction 2.7, Activated Partial Thromboplast Time 77H, Sodium Level 134L, Potassium Level 3.8, Chloride Level 106, Carbon Dioxide Level 19L, Anion Gap 9, Blood Urea Nitrogen 6L, Creatinine 0.61, Estimat Glomerular Filtration Rate 146, BUN/Creatinine Ratio 10, Glucose Level 90, Calcium Level 8.1L Microbiology 08/03/21 Blood Culture - Preliminary, Resulted No growth 08/03/21 Gram Stain, Resulted Pending 08/03/21 Wound Culture - Preliminary, Resulted Gram Negative Richard Assessment/Plan Assessment/Plan Assessment/Plan Bilateral foot wounds with possible ischemic changes to toes bilaterally and possible wet gangrene History of DVT Foot x ray was inconclusive, Doppler study showed partial occlusion of L superfical femoral and popliteal A, and occluded R superficial femoral, popliteal, and calf veins. Cardiology will see him tomorrow to try to open up the blood supply to his LE B/L. Continue IV antibiotics: added Clindamycin yesterday Amputation of B/L toes 1 through 3 scheduled today at 3pm, stopped heparin drip around 9am. Discussed the risk and benefits of the procedure and encouraged him to quit smoking. Depending on how the surgery goes and how bad the infection has spread, Dr. Gonzalez may need to amputate more than the first 3 digits of both toes B/L. LEE GONZALEZ DO 08/05/21 1156: Subjective Date Seen by a Provider: Aug 05, 2021 Subjective/Events-last exam Patient with slight decrease in the swelling of his lower extremities. Patient still with significant pain to this first second and third toes of both feet. Still with drainage of both feet. Patient states feels a bit better overall. Has no new complaints. Denies any nausea vomiting fever sweats chills shortness of breath or chest pain. Patient with some cough and having some slight anxiety states. Patient had a venous Doppler of bilateral lower extremity demonstrating occlusive DVT of the right superficial femoral and popliteal and calf veins and then partial occlusive thrombus of the left superficial femoral and popliteal vein. Patient with bilateral lower extremity arterial:Complete occlusion of the left superficial femoral and popliteal arteries with reconstitution of flow in the calf vessels of the left lower extremity. Etiology is indeterminate and further evaluation may be considered with CTA of the abdomen and pelvis with bilateral lower extremity runoff. Monophasic waveforms in the arteries of the right calf. The more proximal arteries in the right lower extremity demonstrate normal triphasic waveforms without focal stenosis. Objective Exam General Appearance: No Apparent Distress, Anxious HEENT: PERRL/EOMI, Moist Mucous Membranes, Other (edentulous) Neck: Normal Inspection, Supple Respiratory: Chest Non Tender, No Accessory Muscle Use, No Respiratory Distress Cardiovascular: Regular Rate, Rhythm, No JVD Gastrointestinal: non tender, soft Extremity: Inflammation, Swelling (Site left lower extremity greater right lower extremity improved compared to yesterday), Other (bilateral edematous low er extremities with gangerous wounds at bases of toes and significant onychomycosis, pain at the first second and third toes bilaterally no pain at the fourth and fifth. No purulent drainage from the fourth or fifth toes bilaterally the first second and third toes bilaterally also appear ischemic with bilateral feet having dusky appearance as well.) Neurologic/Psychiatric: Alert, Oriented x3, Normal Mood/Affect Skin: Normal Color, Warm/Dry, Other (Ischemic appearing toes first second and third bilateral with the foot appearing slightly dusky) Lymphatic: No Adenopathy Assessment/Plan Assessment/Plan Assessment/Plan Wet gangrene and ischemic toes bilateral 1-3 DVT bilateral lower extremity Vascular occlusive disease bilateral lower extremity Patient has no improvement of the feet. Patient with significant pain of the first through third toes bilaterally. These appear to be ischemic in also are infected. We discussed options and patient agrees with amputation of the first through third toes bilateral all other indicated procedures. He understands all risk and benefits and also that there is going to be open wounds and will need to pack these until healing. He also understands there is a possibility of needing further surgical intervention down the road. Patient also with vascular occlusive disease. Dr. Wang has discussed with Dr. Powell and he will further evaluate. We need to reestablish blood flow. If he can do so this will also help with healing. If not need to look at other alternatives or even vascular surgery intervention. Patient is on heparin drip for anticoagulation. This has been held for surgical intervention and will plan on surgery at 3 PM today. He currently is NPO. This also makes him a higher risk due to the DVTs. Patient understands as well. Supervisory-Addendum Brief Verification & Attestation Participated in pt care: history, MDM, physical Personally performed: exam, history, MDM, supervision of care Care discussed with: Medical Student Procedures: n/a Results interpretation: Verified all documentation Verification and Attestation of Medical Student E/M Service A medical student performed and documented this service in my presence. I reviewed and verified all information documented by the medical student and made modifications to such information, when appropriate. I personally performed the physical exam and medical decision making. Lee Gonzalez, Aug 05, 2021,12:04 BROOK LYLE Aug 05, 2021 07:58 LEE GONZALEZ DO Aug 05, 2021 11:56
[2021-08-05] MEDS ORDERED: TROUGH ORDER-PHARMACY XX NR (08:00)
[2021-08-05] MEDS: VANCOMYCIN 1 GM/NS 250 ML IVPB IV SCH ×4 (09:46→22:07)
[2021-08-05] MEDS ORDERED: proPOfol 200 MG/20 ML (DIPRIVAN) VIAL IV ONE (10:19)
[2021-08-05] MEDS ORDERED: LIDOCAINE PF 2% 5 ML (XYLOCAINE) VIAL ONE (10:19)
[2021-08-05] MEDS ORDERED: fentaNYL INJ 100 MCG/2 ML AMP ONE ×2 (10:19→15:44)
[2021-08-05] MEDS ORDERED: ONDANSETRON 4 MG/2 ML (SDV) Z0FRAN ONE (10:19)
[2021-08-05] MEDS ORDERED: MIDAZOLAM 2 MG/2 ML (VERSED) VIAL ONE (10:19)
[2021-08-05] MEDS ORDERED: SEVOFLURANE (ULTANE) 15 ML INHAL SOLN ONE ×2 (10:21→16:01)
--- NOTE | 2021-08-05 11:34 | Progress Note - Hospitalist ---
Subjective HPI/CC On Admission Date Seen by Provider: Aug 05, 2021 Time Seen by Provider: 11:29 Patient is a 41-year-old male who presented to the emergency department due to bilateral foot pain. He is unsure when this started but knows it is been worsening over the past few days and decided to seek evaluation in the ER due to the pain. He believes that he just had a fungal infection. Upon examination by the ER physician it was recognized that he had gangrenous wounds on both of his feet. He met sepsis criteria and due to the significant wounds he was admitted for IV antibiotics and surgical evaluation for possible debridement. This morning he reports feeling okay but still having pain. He has done better with morphine instead of fentanyl. His only other concern is about being hungry. Subjective/Events-last exam Pt reports feeling somewhat overwhelmed by news of surgery and needed a mputation. Discussed plan for cardiology evaluation as well for PAD and he is agreeable to plan. Spoke with his and son over speakerphone as well. Focused Exam Lactate Level 08/03/21 17:03: Lactic Acid Level 1.80 Objective Exam Vital Signs Vital Signs Date Time Temp Pulse Resp B/P (MAP) Pulse Ox O2 Delivery O2 Flow Rate FiO2 08/05/21 11:17 37.3 60 18 107/65 (79) 99 Room Air Capillary Refill : Less Than 3 Seconds General Appearance: No Apparent Distress, Chronically ill Respiratory: Lungs Clear, No Respiratory Distress Cardiovascular: Regular Rate, Rhythm, No Murmur Gastrointestinal: Normal Bowel Sounds, Non Tender, Soft Extremity: Swelling, Other (persistent edema to legs with gangrenous wounds) Neurologic/Psychiatric: Alert, Oriented x3 Results/Procedures Lab Laboratory Tests 08/04/21 17:30 08/05/21 06:18 Patient resulted labs reviewed. 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 Consider heme evaluation as outpatient for hypercoag work up Attempted to order facto V [place] but not in system Heparin gtt held for surgery today Tobacco abuse Encouraged cessation, he does not want to quit at this time Alcohol use Hyperbilirubinemia Reports daily alcohol use No evidence of withdrawal pretty macrocytic and mild anemia today- monitor DVT ppx: heparin gtt overnight but now on hold for surgery, resume when ok with surgery Diagnosis/Problems Diagnosis/Problems (1) Sepsis Status: Acute Qualifiers: Sepsis type: sepsis due to unspecified organism Sepsis acute organ dysfunction status: without acute organ dysfunction Qualified Codes: A41.9 - Sepsis, unspecified organism (2) Gangrene Status: Acute (3) Tobacco abuse Status: Chronic (4) Alcohol abuse Status: Chronic (5) History of DVT (deep vein thrombosis) (6) Macrocytosis LUCY MOLINA MD Aug 05, 2021 11:34
[2021-08-05] MEDS ORDERED: BUPIVACAINE 0.5% 30 ML (SENSORCAINE) VIAL ONE (14:38)
[2021-08-05] MEDS ORDERED: LIDOCAINE 1% INJ 20 ML 20 ML VIAL ONE (14:38)
--- NOTE | 2021-08-05 15:46 | Consultation-Cardiology ---
HPI-Cardiology Cardiology Consultation: Date of Consultation 08/05/21 Time Seen by a Provider: 15:30 Date of Admission Attending Physician Katherine Wang MD Admitting Physician No,Local Physician Consulting Physician YENY SKELTON MD, MA, FACP, FACC, FSCAI, CCDS Physician requesting consult: Dr Wang HPI: Chief Complaint: Reason for CV consult: PAD HPI 41 yo man who has been admitted to Dr Wang on 08/03/21 with bilateral leg swelling, leg redness, and multiple gangrenous toes. A w/u has indicated PAD and Dr Wang has asked us to see him in consultation. He notes chronic leg swelling, present since 2018, worse lately. States has a chronic history of recurrent DVT. Notes bilateral leg discomfort that is present all the time and is worse with walking. Denies cp or palp or syncope or shortness of breath. Denies n/v/d Review of Systems-Cardiology Review of Systems Constitutional: malaise, tiredness; No weight loss, No weight gain Eyes: No vision change Ears/Nose/Throat: No ear discharge, No nasal drainage, No recent hearing loss Respiratory: As described under HPI Cardiovascular: As described under HPI Gastrointestinal: As described under HPI Genitourinary: No dysuria, No hematuria, No urine frequency changes Musculoskeletal: No back pain, No joint pain Skin: No rash, No ulcerations Psychiatric/Neurological: No seizure, No focal weakness, No syncope Hematologic: No bleeding abnormalities All Other Systems Reviewed Negative Unless Noted: Yes (Negative excepted noted.) [id number] Hx Patient Social History Marrital Status: single Employed/Student: employed Smoking Status: Current Everyday Smoker Have you traveled recently?: No Alcohol Use?: Yes Pt feels they are or have been: No Tobacco type used: Cigarettes Past Medical History PMH As described under Assessment. Family Medical History Family Medical History: He does not report fam h/o early CAD or SCD Allergies and Home Medications Allergies Coded Allergies: No Known Drug Allergies (Unverified , 08/04/21) He denies allergies to drugs and food, says he has seasonal allergies Patient Home Medication List Home Medication List Reviewed: Yes Physical Exam-Cardiology Physical Exam Vital Signs/I&O 08/05/21 08/05/21 08/05/21 08:00 09:50 11:17 Temp 36.5 37.3 Pulse 69 60 Resp 18 18 B/P (MAP) 122/74 (90) 107/65 (79) Pulse Ox 99 99 O2 Delivery Room Air Room Air Room Air 08/05/21 00:00 Intake Total 1368 ml Output Total 1845 ml Balance -477 ml Capillary Refill : Less Than 3 Seconds Constitutional: AAO x 3, well-developed, well-nourished HEENT: EOMI, hearing is well preserved; No xanthelasmas are seen Neck: carotid pulses are 2 + bilaterally, with good upstrokes Respiratory: No accessory muscle use; other (good, bilateral air entry; some coarse basal crackles) Cardiovascular: regular rate-rhythm, S1 and S2 (soft ANUPAMA at card base), syst olic murmur Gastrointestinal: No tender; soft; No guarding, No rebound; audible bowel sounds Rectal: deferred Extremities: other (bilateral leg swelling and reddish discoloration and thickening of the skin of the legs; wet gangrenous changes on the L 2nd and 3rd toes, and on the 2nd, 3rd, 4th and 5th toes on the R) Skin: rash (see under Extremeties exam) Data Review Labs Laboratory Tests 08/04/21 17:30: White Blood Count 4.0L, Red Blood Count 2.87L, Hemoglobin 11.6L, Hematocrit 33L, Mean Corpuscular Volume 115H, Mean Corpuscular Hemoglobin 40H, Mean Corpuscular Hemoglobin Concent 35, Red Cell Distribution Width 13.5, Platelet Count 107L, Mean Platelet Volume 9.4, Percent Immature Platelet Fraction 2.3, Prothrombin Time 14.4, INR Comment 1.1, Activated Partial Thromboplast Time 33 08/04/21 22:40: Activated Partial Thromboplast Time 123*H 08/05/21 06:18: White Blood Count 3.6L, Red Blood Count 2.82L, Hemoglobin 11.5L, Hematocrit 33L, Mean Corpuscular Volume 117H, Mean Corpuscular Hemoglobin 41H, Mean Corpuscular Hemoglobin Concent 35, Red Cell Distribution Width 13.5, Platelet Count 97L, Mean Platelet Volume 10.3, Percent Immature Platelet Fraction 2.7, Activated Partial Thromboplast Time 77H, Sodium Level 134L, Potassium Level 3.8, Chloride Level 106, Carbon Dioxide Level 19L, Anion Gap 9, Blood Urea Nitrogen 6L, Creatinine 0.61, Estimat Glomerular Filtration Rate 146, BUN/Creatinine Ratio 10, Glucose Level 90, Calcium Level 8.1L 08/05/21 07:51: Vancomycin Level Trough 14.1 08/05/21 12:00: SARS-CoV-2 RNA (RT-PCR) Not Detected Microbiology 08/03/21 Urine Culture - Final, Complete Mixed Bacterial Aleta 08/03/21 Blood Culture - Preliminary, Resulted No growth 08/03/21 Gram Stain - Final, Complete 08/03/21 Wound Culture - Final, Complete Gram Negative Richard Corynebacterium species See Comments A/P-Cardiology Assessment/Admission Diagnosis Sepsis due to gangrenous wounds on feet - managed by Hospitalist and Surgical services PAD - complete occlusion of left superficial femoral and popliteal arteries with reconstitution in the calf on noninvasive w/u DVT - Recurrent bilateral DVT Tobacco abuse - cessation advised Discussion and Recomendations * I discussed his CV issues with the patient and have advised smoking cessation * I discussed his case with Dr Wang on the phone * Anticoag for DVT * Echo * Plan peripheral angio. I discussed this with him and answered questions YENY SKELTON MD FACP FAC CCDS Aug 05, 2021 15:46
[2021-08-05] MEDS ORDERED: LACTATED RINGERS 1,000 ML IV PRN (16:00)
--- NOTE | 2021-08-05 16:20 | Progress Note-Post Operative ---
Post-Operative Progess Note Surgeon (s)/Architect Intern (s) Surgeon CHASE GONZALEZ DO Architect Intern: na Pre-Operative Diagnosis wet gangrene and ischemia of b/l 1-3 toes Post-Operative Diagnosis same and questionable osteomyelitis of left 2nd metatarsal head Procedure & Operative Findings Date of Procedure 08/05/21 Procedure Performed/Findings amputation of bilateral 1-3 toes and partial amputation of left second metatarsal head. Anesthesia Type general Estimated Blood Loss Estimated blood loss (mL): minimal Specimens/Packing Specimens Removed 1-3 toes b/l, left 2nd metatarsal head CHASE GONZALEZ DO Aug 05, 2021 16:20
--- NOTE | 2021-08-05 17:32 | OPERATIVE REPORT ---
DATE OF SERVICE: 08/05/2021 PREOPERATIVE DIAGNOSIS: Wet gangrene and ischemia, bilateral 1, 2, 3 toes. POSTOPERATIVE DIAGNOSES: Wet gangrene and ischemia, bilateral 1, 2, 3 toes. Questionable osteomyelitis of the left 2nd metatarsal head. PROCEDURE: Amputation of bilateral 1st, 2nd and 3rd toes, left partial amputation of the 2nd metatarsal head and bilateral foot block. SURGEON: Chase Fernandez DO ANESTHESIA: General. ESTIMATED BLOOD LOSS: Minimal. COMPLICATIONS: None. INDICATIONS: The patient is a 41-year-old male with wet gangrene and ischemia of the bilateral 1st, 2nd and 3rd toes. The patient understands risks and benefits of procedure and wished to proceed with procedure. Consent was signed in the chart. DESCRIPTION OF PROCEDURE: The patient was taken to the operating suite. He was prepped and draped in sterile fashion. Timeout was performed. The right foot 1st, 2nd and 3rd toes, 15 blade scalpel was used to make an incision around at the base. Cautery was used to dissect down through the subcutaneous tissues, encountering the metatarsal joint space. This was then dissected through and the 1st, 2nd and 3rd toes were then amputated. Hemostasis was achieved. The left foot was then inspected. A 15 blade scalpel was used to make an incision around the 1st, 2nd and 3rd toes at the bases. Cautery was used to dissect down through the subcutaneous tissues into the metacarpal joint where the 1st, 2nd and 3rd toes were then amputated in its entirety. Hemostasis was achieved. The metatarsal head of the second just proximal to it, there was a questionable appearance of osteomyelitis. The left second metatarsal head was then amputated using a saw back to good healthy bone. The wounds were then irrigated with copious amounts of irrigation. Foot block was performed on both feet where the nerves were injected at the medial and lateral aspects of the ankle and then in a like fashion over the dorsal aspect of the foot. The wounds were then irrigated with copious amounts of irrigation. Hemostasis was achieved. Wounds were then packed with iodoform. Sterile bandages were applied. Fourth and fifth toenails were trimmed using triangular cutters. The patient was taken to recovery room in stable condition. Job ID: [id number] DocumentID: [id number] Dictated Date: 08/05/2021 16:29:22 Metal Sander And Finisher Date: 08/05/2021 17:31:43 Dictated By: CHASE FERNANDEZ DO
[2021-08-05 18:29] LABS: BASOPHILS % (AUTO) 1 % (0-10); HEMOGLOBIN 12.2 g/dL (13.3-17.7); MEAN CORPUSCULAR VOLUME 117 fL (80-99); MEAN PLATELET VOLUME 10.2 fL (9.0-12.2)
[2021-08-05 18:31] LABS: EOSINOPHILS # (AUTO) 0.2 10^3/uL (0.0-0.3); EOSINOPHILS % (AUTO) 6 % (0-10); HEMATOCRIT 35 % (40-54); LYMPHOCYTES # (AUTO) 0.9 10^3/uL (1.0-4.0); LYMPHOCYTES % (AUTO) 32 % (12-44); MEAN CORPUSCULAR HEMOGLOBIN 41 pg (25-34); MEAN CORPUSCULAR HGB CONC 35 g/dL (32-36); MONOCYTES # (AUTO) 0.1 10^3/uL (0.0-1.0); MONOCYTES % (AUTO) 5 % (0-12); NEUTROPHILS # (AUTO) 1.6 10^3/uL (1.8-7.8); NEUTROPHILS % (AUTO) 56 % (42-75); PLATELET COUNT 104 10^3/uL (130-400); WHITE BLOOD COUNT 2.9 10^3/uL (4.3-11.0)
[2021-08-05 18:44] LABS: INR 1.1 (0.8-1.4); PROTHROMBIN TIME PATIENT 14.6 SEC (12.2-14.7)
[2021-08-05] MEDS: HEParin 1000 UNIT/ML (10ML VIAL) FOR BOLUS IV SCH (18:57)
[2021-08-06] VITALS (7 sets, daily range): BP systolic 106–132; BP diastolic 60–86
[2021-08-06] MEDS: morphine INJ 4 MG/ML 1 ML (VIAL/SYRINGE) IVP PRN ×10 (00:11→23:08)
[2021-08-06] MEDS: CLINDAMYCIN 600 MG/50 ML IVPB 50 ML IV SCH ×4 (00:11→23:01)
[2021-08-06] MEDS: MELATONIN 3 MG TABLET PO PRN ×2 (00:55→21:01)
[2021-08-06] MEDS: NS IV 1000 ML 1,000 ML IV SCH ×4 (02:05→23:01)
[2021-08-06] MEDS: HEParin DRIP 25000 UNIT/500ML 500 ML IV SCH ×3 (03:32→13:31)
[2021-08-06] MEDS: PIPERACILLIN/TAZO 4.5 GM/NS 100 ML IV SCH ×4 (05:38→11:25)
--- NOTE | 2021-08-06 07:39 | Anesthesia-General Post-Op ---
General Patient Condition Mental Status/LOC: Same as Preop Cardiovascular: Satisfactory Nausea/Vomiting: Absent Respiratory: Satisfactory Pain: Controlled Complications: Absent Post Op Complications Complications None Follow Up Care/Instructions Patient Instructions None needed. Anesthesia/Patient Condition Patient Condition Patient is doing well, no complaints, stable vital signs, no apparent adverse anesthesia problems. No complications reported per nursing. D/C home per [facility] Criteria: ANNE Morales CRNA Aug 06, 2021 07:39
[2021-08-06 07:44] LABS: BASOPHILS % (AUTO) 1 % (0-10); EOSINOPHILS # (AUTO) 0.2 10^3/uL (0.0-0.3); EOSINOPHILS % (AUTO) 4 % (0-10); HEMATOCRIT 34 % (40-54); HEMOGLOBIN 12.2 g/dL (13.3-17.7); LYMPHOCYTES # (AUTO) 1.3 10^3/uL (1.0-4.0); LYMPHOCYTES % (AUTO) 26 % (12-44); MEAN CORPUSCULAR HEMOGLOBIN 42 pg (25-34); MEAN CORPUSCULAR HGB CONC 36 g/dL (32-36); MEAN CORPUSCULAR VOLUME 114 fL (80-99); MEAN PLATELET VOLUME 10.3 fL (9.0-12.2); MONOCYTES # (AUTO) 0.3 10^3/uL (0.0-1.0); MONOCYTES % (AUTO) 7 % (0-12); NEUTROPHILS % (AUTO) 62 % (42-75); PLATELET COUNT 113 10^3/uL (130-400); WHITE BLOOD COUNT 4.9 10^3/uL (4.3-11.0)
--- NOTE | 2021-08-06 07:46 | Progress Note - Surgery ---
BROOK LYLE 08/06/21 0746: Subjective Time Seen by a Provider: 07:30 Subjective/Events-last exam Pt is doing well post surgery of B/L toes 1-3, he reports that his right foot is well controlled with pain but his left foot has a burning pain on the dorsal aspect near where his 1st and 2nd toes use to be. He reports that pain to be very similar to the pain he had prior to surgery and is requesting pain medication for better control. He denies fever, chills, N/V, abdominal pain, problems with urination, SOB, CP, calf pain, and he had a bowel movement yesterday. Focused Exam Lactate Level 08/03/21 17:03: Lactic Acid Level 1.80 Objective Exam Vital Signs Date Time Temp Pulse Resp B/P (MAP) Pulse Ox O2 Delivery O2 Flow Rate FiO2 08/06/21 03:35 36.5 77 20 106/64 (78) 95 Room Air 08/06/21 00:07 36.6 86 16 117/66 (83) 94 Room Air 08/05/21 21:59 Room Air 08/05/21 20:00 36.6 83 18 105/56 (72) 98 Room Air 08/05/21 17:10 Room Air 08/05/21 16:56 23 116/75 (89) 95 Room Air 08/05/21 16:50 36.1 14 112/82 (92) 98 Room Air 08/05/21 16:40 OxyMask 10 08/05/21 16:40 16 103/71 (82) 100 OxyMask 10 08/05/21 16:31 20 106/69 (81) 100 OxyMask 10 08/05/21 16:24 12 103/65 (78) 100 OxyMask 10 08/05/21 16:16 12 96/57 (70) 100 OxyMask 10 08/05/21 16:10 OxyMask 10 08/05/21 16:10 36.4 16 97/54 (68) 100 OxyMask 10 08/05/21 16:00 36.1 88 18 121/76 (91) 96 Room Air 08/05/21 11:17 37.3 60 18 107/65 (79) 99 Room Air 08/05/21 09:50 Room Air 08/05/21 08:00 36.5 69 18 122/74 (90) 99 Room Air I & O 08/06/21 07:00 Intake Total 1490 ml Output Total 2425 ml Balance -935 ml Capillary Refill : Less Than 3 Seconds General Appearance: No Apparent Distress, Anxious HEENT: PERRL/EOMI, Moist Mucous Membranes, Other (edentulous) Neck: Normal Inspection, Supple Respiratory: Chest Non Tender, No Accessory Muscle Use, No Respiratory Distress Cardiovascular: Regular Rate, Rhythm, No JVD, Tachycardia Gastrointestinal: non tender, soft Extremity: Inflammation, Swelling (has decreased on both legs), Other (both feet are dressed after surgery yesterday) Neurologic/Psychiatric: Alert, Oriented x3, Normal Mood/Affect, site inspector II-XII Norm as Tested Skin: Normal Color, Warm/Dry, Other (Ischemic appearing toes first second and third bilateral with the foot appearing slightly dusky) Lymphatic: No Adenopathy Results Lab Laboratory Tests 08/05/21 07:51: Vancomycin Level Trough 14.1 08/05/21 12:00: SARS-CoV-2 RNA (RT-PCR) Not Detected 08/05/21 18:22: White Blood Count 2.9L, Red Blood Count 2.99L, Hemoglobin 12.2L, Hematocrit 35L, Mean Corpuscular Volume 117H, Mean Corpuscular Hemoglobin 41H, Mean Corpuscular Hemoglobin Concent 35, Red Cell Distribution Width 13.4, Platelet Count 104L, Mean Platelet Volume 10.2, Immature Granulocyte % (Auto) 1, Neutrophils (%) (Auto) 56, Lymphocytes (%) (Auto) 32, Monocytes (%) (Auto) 5, Eosinophils (%) (Auto) 6, Basophils (%) (Auto) 1, Neutrophils # (Auto) 1.6L, Lymphocytes # (Auto) 0.9L, Monocytes # (Auto) 0.1, Eosinophils # (Auto) 0.2, Basophils # (Auto) 0.0, Immature Granulocyte # (Auto) 0.0, Percent Immature Platelet Fraction 2.6, Prothrombin Time 14.6, INR Comment 1.1, Activated Partial Thromboplast Time 42H 08/05/21 22:50: Activated Partial Thromboplast Time 197*H 08/06/21 07:35: Microbiology 08/05/21 MRSA Screen - Final, Complete MRSA not isolated 08/03/21 Urine Culture - Final, Complete Mixed Bacterial Aleta 08/03/21 Blood Culture - Preliminary, Resulted No growth 08/03/21 Gram Stain - Final, Complete 08/03/21 Wound Culture - Final, Complete Gram Negative Richard Corynebacterium species See Comments Assessment/Plan Assessment/Plan Assessment/Plan Wet gangrene and ischemic toes bilateral 1-3 DVT bilateral lower extremity Vascular occlusive disease bilateral lower extremity He had surgery yesterday for removal of B/L toes 1-3. His wounds are dressed and will manage him conservatively to see if any infection is remaining in his feet. Cardiology is on board and will manage his PAD to try to increase circulation into his LE B/L CHASE FERNANDEZ DO 08/06/21 1129: Subjective Subjective/Events-last exam Pain not quite controlled. More pain in the left foot than the right. Burning sensation. Better than before surgery though. No purulent drainage. Denies n/v fever sweats chills shortness of breath or chest pain. Objective Exam General Appearance: No Apparent Distress, Anxious HEENT: PERRL/EOMI, Moist Mucous Membranes Neck: Normal Inspection, Supple Respiratory: Chest Non Tender, No Accessory Muscle Use, No Respiratory Distress Cardiovascular: Regular Rate, Rhythm, No JVD Gastrointestinal: non tender, soft Extremity: Swelling (has decreased on both legs, right greater than left), Other (open wounds b/l feet after ampuations, no necrotic tissue) Neurologic/Psychiatric: Alert, Oriented x3, Normal Mood/Affect, site inspector II-XII Norm as Tested Skin: Normal Color, Warm/Dry, Other (dorsal portion of foot slight dusky appearance, open wounds b/l) Lymphatic: No Adenopathy Assessment/Plan Assessment/Plan Assessment/Plan Wet gangrene and ischemic toes bilateral 1-3 s/p amputation of b/l toes 1-3 and left second metatarsal head and b/l foot blocks DVT bilateral lower extremity Vascular occlusive disease bilateral lower extremity Tobacco use Wound care- iodoform gauze may consider wound vac. patient understands may need further surgical intervention. Discussed need for smoking cessation Cardiology is on board and will manage his PAD to try to increase circulation into his LE B/L Supervisory-Addendum Brief Verification & Attestation Participated in pt care: history, MDM, physical Personally performed: exam, history, MDM, supervision of care Care discussed with: Medical Student Procedures: n/a Results interpretation: Verified all documentation Verification and Attestation of Medical Student E/M Service A medical student performed and documented this service in my presence. I reviewed and verified all information documented by the medical student and made modifications to such information, when appropriate. I personally performed the physical exam and medical decision making. Chase Fernandez, Aug 06, 2021,11:29 BROOK LYLE Aug 06, 2021 07:46 CHASE FERNANDEZ DO Aug 06, 2021 11:29
[2021-08-06 07:57] LABS: POTASSIUM 3.6 MMOL/L (3.6-5.0)
[2021-08-06 08:02] LABS: CREATININE SERUM 0.63 MG/DL (0.60-1.30)
[2021-08-06] MEDS ORDERED: ACET-2267 PO (08:31)
[2021-08-06] MEDS: HEParin 1000 UNIT/ML (10ML VIAL) FOR BOLUS IV SCH (08:34)
[2021-08-06] MEDS ORDERED: CHLO1TAB74 PO (08:35)
--- NOTE | 2021-08-06 09:29 | Progress Note ---
Subjective Subjective Date Seen by Provider: Aug 06, 2021 Time Seen by Provider: 08:15 Patient is a 41yo male S/P amputation of toes 1-3 bilaterally. He presented to the ER 08/03 with gangrene of both feet and was septic. He reports feeling well this morning other than pain in the L foot. The pain is reportedly just as bad as it was prior to surgery- 08/05. He has hardly slept since arriving here. Denies any N/V, sweats/chills or SOA. Review of Systems General: No Chills, No Night Sweats HEENT: No Head Aches Pulmonary: No Dyspnea, No Cough Cardiovascular: No: Palpitations Gastrointestinal: No: Nausea, Vomiting, Abdominal Pain All Other Systems Reviewed All Other Systems Reviewed: Yes (Negative excepted noted.) Objective Exam Vital Signs Vital Signs Date Time Temp Pulse Resp B/P (MAP) Pulse Ox O2 Delivery O2 Flow Rate FiO2 08/06/21 08:58 Room Air 08/06/21 08:00 36.5 103 20 123/76 (92) 97 Room Air 08/06/21 03:35 36.5 77 20 106/64 (78) 95 Room Air 08/06/21 00:07 36.6 86 16 117/66 (83) 94 Room Air 08/05/21 21:59 Room Air 08/05/21 20:00 36.6 83 18 105/56 (72) 98 Room Air 08/05/21 17:10 Room Air 08/05/21 16:56 23 116/75 (89) 95 Room Air 08/05/21 16:50 36.1 14 112/82 (92) 98 Room Air 08/05/21 16:40 OxyMask 10 08/05/21 16:40 16 103/71 (82) 100 OxyMask 10 08/05/21 16:31 20 106/69 (81) 100 OxyMask 10 08/05/21 16:24 12 103/65 (78) 100 OxyMask 10 08/05/21 16:16 12 96/57 (70) 100 OxyMask 10 08/05/21 16:10 OxyMask 10 08/05/21 16:10 36.4 16 97/54 (68) 100 OxyMask 10 08/05/21 16:00 36.1 88 18 121/76 (91) 96 Room Air 08/05/21 11:17 37.3 60 18 107/65 (79) 99 Room Air 08/05/21 09:50 Room Air I & O 08/06/21 07:00 Intake Total 1490 ml Output Total 2425 ml Balance -935 ml General Appearance: No Apparent Distress, WD/WN HEENT: PERRL/EOMI, Moist Mucous Membranes, Other (edentulous) Neck: Normal Inspection, Supple Respiratory: Chest Non Tender, No Accessory Muscle Use, No Respiratory Distress Cardiovascular: Regular Rate, Rhythm, No JVD Gastrointestinal: Normal Bowel Sounds, Non Tender, Soft Back: Normal Inspection Extremity: Other (both feet are dressed from surgery) Neurologic/Psychiatric: Alert, Oriented x3, Normal Mood/Affect Skin: Normal Color, Warm/Dry Lymphatic: No Adenopathy Results Lab Laboratory Tests 08/05/21 12:00: SARS-CoV-2 RNA (RT-PCR) Not Detected 08/05/21 18:22: White Blood Count 2.9L, Red Blood Count 2.99L, Hemoglobin 12.2L, Hematocrit 35L, Mean Corpuscular Volume 117H, Mean Corpuscular Hemoglobin 41H, Mean Corpuscular Hemoglobin Concent 35, Red Cell Distribution Width 13.4, Platelet Count 104L, Mean Platelet Volume 10.2, Immature Granulocyte % (Auto) 1, Neutrophils (%) (Auto) 56, Lymphocytes (%) (Auto) 32, Monocytes (%) (Auto) 5, Eosinophils (%) (Auto) 6, Basophils (%) (Auto) 1, Neutrophils # (Auto) 1.6L, Lymphocytes # (Auto) 0.9L, Monocytes # (Auto) 0.1, Eosinophils # (Auto) 0.2, Basophils # (Auto) 0.0, Immature Granulocyte # (Auto) 0.0, Percent Immature Platelet Fraction 2.6, Prothrombin Time 14.6, INR Comment 1.1, Activated Partial Thromboplast Time 42H 08/05/21 22:50: Activated Partial Thromboplast Time 197*H 08/06/21 07:35: White Blood Count 4.9, Red Blood Count 2.94L, Hemoglobin 12.2L, Hematocrit 34L, Mean Corpuscular Volume 114H, Mean Corpuscular Hemoglobin 42H, Mean Corpuscular Hemoglobin Concent 36, Red Cell Distribution Width 13.1, Platelet Count 113L, Mean Platelet Volume 10.3, Immature Granulocyte % (Auto) 0, Neutrophils (%) (Auto) 62, Lymphocytes (%) (Auto) 26, Monocytes (%) (Auto) 7, Eosinophils (%) (Auto) 4, Basophils (%) (Auto) 1, Neutrophils # (Auto) 3.0, Lymphocytes # (Auto) 1.3, Monocytes # (Auto) 0.3, Eosinophils # (Auto) 0.2, Basophils # (Auto) 0.0, Immature Granulocyte # (Auto) 0.0, Activated Partial Thromboplast Time 52H, Sodium Level 135, Potassium Level 3.6, Chloride Level 105, Carbon Dioxide Level 19L, Anion Gap 11, Blood Urea Nitrogen 3L, Creatinine 0.63, Estimat Glomerular F iltration Rate 140, BUN/Creatinine Ratio 5, Glucose Level 107H, Calcium Level 8.0L Microbiology 08/05/21 MRSA Screen - Final, Complete MRSA not isolated 08/03/21 Urine Culture - Final, Complete Mixed Bacterial Aleta 08/03/21 Blood Culture - Preliminary, Resulted No growth 08/03/21 Gram Stain - Final, Complete 08/03/21 Wound Culture - Final, Complete Gram Negative Richard Corynebacterium species See Comments Assessment/Plan Assessment/Plan Admission Status: Inpatient Order (span 2 midnights) Assessment and Plan Sepsis due to gangrenous wounds on feet S/P Amputation of bilateral 1st, 2nd and 3rd toes, left partial amputation of the 2nd metatarsal head Await cultures Continue Vanc, Clinda and Unasyn PAD Complete occlusion of left superficial femoral and popliteal arteries with reconstitution in the calf Dr Powell consulted, will assess and if able attempt peripheral intervention to assist with wound healing DVT Recurrent DVTs, will need lifelong anticoagulation Consider heme evaluation as outpatient for hypercoag work up Restarted heparin, APTT improved Tobacco abuse Alcohol use Recommend cessation Problems: (1) Sepsis Qualifiers: Qualified Codes: A41.9 - Sepsis, unspecified organism (2) Gangrene of both feet (3) PAD (peripheral artery disease) (4) Acute deep vein thrombosis (DVT) of both lower extremities (5) Tobacco abuse (6) Alcohol abuse Supervisory-Addendum Brief Verification & Attestation Participated in pt care: history, MDM, physical Personally performed: exam, history, MDM, supervision of care Care discussed with: Medical Student Procedures: n/a Results interpretation: Verified all documentation A medical student performed and documented this service in my presence. I reviewed and verified all information documented by the medical student and made modifications to such information, when appropriate. I personally performed the physical exam and medical decision making. NELSON DOSS Aug 06, 2021 09:29 RAMIN FLORES MD Aug 06, 2021 20:33
[2021-08-06] MEDS: VANCOMYCIN 1 GM/NS 250 ML IVPB IV SCH ×4 (09:44→20:20)
[2021-08-06] MEDS ORDERED: HYDROcodone/APAP 5 MG/325 MG (LORTAB) TAB PO PRN (11:30)
[2021-08-06] MEDS ORDERED: morphine INJ 4 MG/ML 1 ML (VIAL/SYRINGE) ONE (15:39)
[2021-08-06] MEDS ORDERED: morphine INJ 4 MG/ML 1 ML (VIAL/SYRINGE) IVP ONE (15:45)
[2021-08-06] MEDS: HYDROcodone/APAP 5 MG/325 MG (LORTAB) TAB PO PRN (16:35)
--- NOTE | 2021-08-06 16:48 | Progress Note - Cardiology ---
Cardiology SOAP Progress Note Subjective: No cp or palp or syncope or shortness of breath Discomfort at sites of surgery on the feet No n/v/d Gen weakness and malaise Objective: I&O/Vital Signs 08/06/21 08/06/21 08/06/21 08:00 08:58 12:00 Temp 36.5 36.5 Pulse 103 95 Resp 20 20 B/P (MAP) 123/76 (92) 114/69 (84) Pulse Ox 97 97 O2 Delivery Room Air Room Air Room Air 08/06/21 00:00 Intake Total 410 ml Output Total 1275 ml Balance -865 ml Constitutional: AAO x 3, well-developed, well-nourished Respiratory: No accessory muscle use; other (good, bilateral air entry; some coarse basal crackles) Cardiovascular: regular rate-rhythm, S1 and S2 (soft ANUPAMA at card base), systolic murmur Gastrointestional: No tender; soft; No guarding, No rebound; audible bowel sounds Extremities: other (bilateral leg swelling and reddish discoloration and thickening of the skin of the legs; s/p amputation of bilat 1, 2, 3 toes) Skin: rash (see under Extremeties exam) Results/Procedures: Labs Laboratory Tests 08/05/21 18:22: White Blood Count 2.9L, Red Blood Count 2.99L, Hemoglobin 12.2L, Hematocrit 35L, Mean Corpuscular Volume 117H, Mean Corpuscular Hemoglobin 41H, Mean Corpuscular Hemoglobin Concent 35, Red Cell Distribution Width 13.4, Platelet Count 104L, Mean Platelet Volume 10.2, Immature Granulocyte % (Auto) 1, Neutrophils (%) (Auto) 56, Lymphocytes (%) (Auto) 32, Monocytes (%) (Auto) 5, Eosinophils (%) (A uto) 6, Basophils (%) (Auto) 1, Neutrophils # (Auto) 1.6L, Lymphocytes # (Auto) 0.9L, Monocytes # (Auto) 0.1, Eosinophils # (Auto) 0.2, Basophils # (Auto) 0.0, Immature Granulocyte # (Auto) 0.0, Percent Immature Platelet Fraction 2.6, Prothrombin Time 14.6, INR Comment 1.1, Activated Partial Thromboplast Time 42H 08/05/21 22:50: Activated Partial Thromboplast Time 197*H 08/06/21 07:35: White Blood Count 4.9, Red Blood Count 2.94L, Hemoglobin 12.2L, Hematocrit 34L, Mean Corpuscular Volume 114H, Mean Corpuscular Hemoglobin 42H, Mean Corpuscular Hemoglobin Concent 36, Red Cell Distribution Width 13.1, Platelet Count 113L, Mean Platelet Volume 10.3, Immature Granulocyte % (Auto) 0, Neutrophils (%) (Auto) 62, Lymphocytes (%) (Auto) 26, Monocytes (%) (Auto) 7, Eosinophils (%) (Auto) 4, Basophils (%) (Auto) 1, Neutrophils # (Auto) 3.0, Lymphocytes # (Auto) 1.3, Monocytes # (Auto) 0.3, Eosinophils # (Auto) 0.2, Basophils # (Auto) 0.0, Immature Granulocyte # (Auto) 0.0, Activated Partial Thromboplast Time 52H, Sodium Level 135, Potassium Level 3.6, Chloride Level 105, Carbon Dioxide Level 19L, Anion Gap 11, Blood Urea Nitrogen 3L, Creatinine 0.63, Estimat Glomerular Filtration Rate 140, BUN/Creatinine Ratio 5, Glucose Level 107H, Calcium Level 8.0L 08/06/21 12:38: Activated Partial Thromboplast Time 130*H Microbiology 08/05/21 MRSA Screen - Final, Complete MRSA not isolated 08/03/21 Urine Culture - Final, Complete Mixed Bacterial Aleta 08/03/21 Blood Culture - Preliminary, Resulted No growth 08/03/21 Gram Stain - Final, Complete 08/03/21 Wound Culture - Final, Complete Gram Negative Richard Corynebacterium species See Comments Laboratory Tests 08/04/21 17:30 08/05/21 06:18 08/05/21 18:22 08/06/21 07:35 A/P: Assessment: Sepsis due to wet gangrenous wounds on feet - Amputation of bilateral 1st, 2nd and 3rd toes, left partial amputation of the 2nd metatarsal head and bilateral foot block on 08/05/21 PAD - complete occlusion of left superficial femoral and popliteal arteries with reconstitution in the calf on noninvasive w/u DVT - Recurrent bilateral DVT Tobacco abuse - cessation advised Plan: * I again discussed his CV issues with the patient and have advised smoking cessation * Plan peripheral angio. I discussed this with him and answered questions YENY SKELTON MD FACP FAC CCDS Aug 06, 2021 16:48
[2021-08-06] MEDS: AMPICILLIN/SULBACTAM 3 GM/NS 100 ML IVPB IV SCH ×2 (17:30)
[2021-08-07] VITALS (13 sets, daily range): BP systolic 98–126; BP diastolic 54–82
[2021-08-07] MEDS: AMPICILLIN/SULBACTAM 3 GM/NS 100 ML IVPB IV SCH ×8 (00:01→21:37)
[2021-08-07] MEDS: HYDROcodone/APAP 5 MG/325 MG (LORTAB) TAB PO PRN ×2 (00:02→16:31)
[2021-08-07 02:01] LABS: HEMOGLOBIN 11.4 g/dL (13.3-17.7); MEAN PLATELET VOLUME 9.9 fL (9.0-12.2); WHITE BLOOD COUNT 4.4 10^3/uL (4.3-11.0)
[2021-08-07] MEDS: morphine INJ 4 MG/ML 1 ML (VIAL/SYRINGE) IVP PRN ×5 (02:01→14:45)
[2021-08-07 02:25] LABS: INR 1.1 (0.8-1.4); PROTHROMBIN TIME PATIENT 14.7 SEC (12.2-14.7)
[2021-08-07] MEDS: CLINDAMYCIN 600 MG/50 ML IVPB 50 ML IV SCH ×3 (05:21→23:34)
[2021-08-07] MEDS: NS IV 1000 ML 1,000 ML IV SCH ×3 (06:07→19:55)
[2021-08-07] MEDS: HEParin DRIP 25000 UNIT/500ML 500 ML IV SCH (06:42)
--- NOTE | 2021-08-07 07:36 | Progress Note - Surgery ---
BROOK LYLE 08/07/21 0736: Subjective Time Seen by a Provider: 07:15 Subjective/Events-last exam Pt is doing well, right leg pain is well controlled and he reports his left leg pain is still bothering him especially with movement. He denies N/V, abdominal pain, fever, chills, diarrhea, constipation, CP, or SOB. He has normal bowel movements. Objective Exam Vital Signs Date Time Temp Pulse Resp B/P (MAP) Pulse Ox O2 Delivery O2 Flow Rate FiO2 08/07/21 04:00 37.3 80 18 108/65 (79) 99 Room Air 08/06/21 23:44 37.6 87 20 132/86 (101) 98 Room Air 08/06/21 21:35 Room Air 08/06/21 21:19 Room Air 08/06/21 20:00 36.2 88 20 116/60 (78) 99 Room Air 08/06/21 16:00 36.8 92 20 132/62 (85) 96 Room Air 08/06/21 12:00 36.5 95 20 114/69 (84) 97 Room Air 08/06/21 08:58 Room Air 08/06/21 08:00 36.5 103 20 123/76 (92) 97 Room Air I & O 08/07/21 07:00 Intake Total 3340 ml Output Total 4510 ml Balance -1170 ml Capillary Refill : Less Than 3 Seconds General Appearance: No Apparent Distress, WD/WN, Other (He is not in as much in pain as he was yesterday, more comfortable at rest) HEENT: PERRL/EOMI Neck: Normal Inspection, Supple Respiratory: Chest Non Tender, Lungs Clear, Normal Breath Sounds, No Accessory Muscle Use, No Respiratory Distress Cardiovascular: Regular Rate, Rhythm, No JVD Gastrointestinal: normal bowel sounds, non tender, soft Extremity: Other (both feet are dressed from surgery, legs are swollen but decreased from previous days, non tender) Neurologic/Psychiatric: Alert, Oriented x3, Normal Mood/Affect Skin: Warm/Dry (calf B/L) Lymphatic: No Adenopathy Results Lab Laboratory Tests 08/06/21 07:35: White Blood Count 4.9, Red Blood Count 2.94L, Hemoglobin 12.2L, Hematocrit 34L, Mean Corpuscular Volume 114H, Mean Corpuscular Hemoglobin 42H, Mean Corpuscular Hemoglobin Concent 36, Red Cell Distribution Width 13.1, Platelet Count 113L, Mean Platelet Volume 10.3, Immature Granulocyte % (Auto) 0, Neutrophils (%) (Auto) 62, Lymphocytes (%) (Auto) 26, Monocytes (%) (Auto) 7, Eosinophils (%) (Auto) 4, Basophils (%) (Auto) 1, Neutrophils # (Auto) 3.0, Lymphocytes # (Auto) 1.3, Monocytes # (Auto) 0.3, Eosinophils # (Auto) 0.2, Basophils # (Auto) 0.0, Immature Granulocyte # (Auto) 0.0, Activated Partial Thromboplast Time 52H, Sodium Level 135, Potassium Level 3.6, Chloride Level 105, Carbon Dioxide Level 19L, Anion Gap 11, Blood Urea Nitrogen 3L, Creatinine 0.63, Estimat Glomerular Filtration Rate 140, BUN/Creatinine Ratio 5, Glucose Level 107H, Calcium Level 8.0L 08/06/21 12:38: Activated Partial Thromboplast Time 130*H 08/06/21 19:59: Activated Partial Thromboplast Time 75H 08/07/21 01:53: White Blood Count 4.4, Red Blood Count 2.84L, Hemoglobin 11.4L, Hematocrit 32L, Mean Corpuscular Volume 114H, Mean Corpuscular Hemoglobin 40H, Mean Corpuscular Hemoglobin Concent 35, Red Cell Distribution Width 13.1, Platelet Count 109L, Mean Platelet Volume 9.9, Activated Partial Thromboplast Time 70H, Percent Immature Platelet Fraction 2.3, Prothrombin Time 14.7, INR Comment 1.1 Microbiology 08/05/21 MRSA Screen - Final, Complete MRSA not isolated 08/03/21 Urine Culture - Final, Complete Mixed Bacterial Aleta 08/03/21 Blood Culture - Preliminary, Resulted No growth 08/03/21 Gram Stain - Final, Complete 08/03/21 Wound Culture - Final, Complete Gram Negative Richard Corynebacterium species See Comments Assessment/Plan Assessment/Plan Assessment/Plan Wet gangrene and ischemic toes bilateral 1-3 s/p amputation of b/l toes 1-3 and left second metatarsal head and b/l foot blocks DVT bilateral lower extremity Vascular occlusive disease bilateral lower extremity Tobacco use Wound care- iodoform gauze may consider wound vac. patient understands may need further surgical intervention. His pain is well controlled compared to yesterday on his left foot, although he states it is about the same. Discussed need for smoking cessation Cardiology is on board, Peripheral angiogram is planned and they will be managing his PAD CHASE FERNANDEZ DO 08/07/212001: Subjective Subjective/Events-last exam Patient pain better controlled today. Did not tolerate wound vacs. Patient doing iodoform packings. Feels there is maybe a little bit less swelling. Patient no new complaints. Denies any nausea vomiting fever sweats chills shortness of breath or chest pain. Objective Exam General Appearance: No Apparent Distress, WD/WN, Other (He is not in as much in pain as he was yesterday, more comfortable at rest) HEENT: PERRL/EOMI, Normal ENT Inspection Neck: Normal Inspection, Supple Respiratory: Chest Non Tender, No Accessory Muscle Use, No Respiratory Distress Cardiovascular: Regular Rate, Rhythm, No JVD Gastrointestinal: non tender, soft Extremity: Other (right greater than left swollen, open wounds from amputation 1-3 toes b/l) Neurologic/Psychiatric: Alert, Oriented x3, Normal Mood/Affect Skin: Warm/Dry (b/l feet with discoloration same still concerning for ischemic changes, is variable) Lymphatic: No Adenopathy Assessment/Plan Assessment/Plan Assessment/Plan Wet gangrene and ischemic toes bilateral 1-3 s/p amputation of b/l toes 1-3 and left second metatarsal head and b/l foot blocks DVT bilateral lower extremity Vascular occlusive disease bilateral lower extremity Tobacco use Wound care- iodoform gauze, did not tolerate wound vac. patient understands may need further surgical intervention. Pain control. Continue abx Discussed need for smoking cessation Angio b/l lower extremity Supervisory-Addendum Brief Verification & Attestation Participated in pt care: history, MDM, physical Personally performed: exam, history, MDM, supervision of care Care discussed with: Medical Student Procedures: n/a Results interpretation: Verified all documentation Verification and Attestation of Medical Student E/M Service A medical student performed and documented this service in my presence. I reviewed and verified all information documented by the medical student and made modifications to such information, when appropriate. I personally performed the physical exam and medical decision making. Chase Fernandez, Aug 07, 2021,20:04 BROOK LYLE Aug 07, 2021 07:36 CHASE FERNANDEZ DO Aug 07, 2021 20:02
[2021-08-07] MEDS ORDERED: NS IV 1000 ML 1,000 ML IV ONE (09:00)
[2021-08-07] MEDS ORDERED: MIDAZOLAM 5 MG/5 ML (VERSED) VIAL ONE (09:41)
[2021-08-07] MEDS ORDERED: LIDOCAINE 1% INJ 20 ML 20 ML VIAL ONE (09:41)
[2021-08-07] MEDS ORDERED: fentaNYL INJ 100 MCG/2 ML AMP ONE (09:41)
[2021-08-07] MEDS ORDERED: NS IV 1000 ML 1,000 ML ONE (09:42)
[2021-08-07] MEDS ORDERED: HEParin (CATH LAB) 2,000 ML IV ONE (09:42)
[2021-08-07] MEDS: VANCOMYCIN 1 GM/NS 250 ML IVPB IV SCH ×4 (09:51→20:11)
[2021-08-07] MEDS ORDERED: HYDROmorphone 2 MG/ML VIAL (DILAUDID) ONE (10:31)
[2021-08-07] MEDS ORDERED: PATIENT MAY USE OWN MEDS, ALL PO SCH (11:00)
[2021-08-07] MEDS ORDERED: NS IV 1000 ML 1,000 ML IV SCH (11:00)
--- NOTE | 2021-08-07 11:12 | Progress Note ---
Subjective Subjective Date Seen by Provider: Aug 07, 2021 Time Seen by Provider: 19:30 Patient states that he is still having pain in the L foot. Denies any N/V, sweats/chills or SOA. He was feeling a bit bloated yesterday. Still not getting much sleep, only 1-2 hours last night. Review of Systems General: No Chills, No Night Sweats HEENT: No Head Aches Pulmonary: No Dyspnea, No Cough Cardiovascular: No: Palpitations Gastrointestinal: No: Nausea, Vomiting, Abdominal Pain All Other Systems Reviewed All Other Systems Reviewed: Yes (Negative excepted noted.) Objective Exam Vital Signs Vital Signs Date Time Temp Pulse Resp B/P (MAP) Pulse Ox O2 Delivery O2 Flow Rate FiO2 08/07/21 09:00 Room Air 08/07/21 08:00 36.9 85 20 107/68 (81) 100 Room Air 08/07/21 04:00 37.3 80 18 108/65 (79) 99 Room Air 08/06/21 23:44 37.6 87 20 132/86 (101) 98 Room Air 08/06/21 21:35 Room Air 08/06/21 21:19 Room Air 08/06/21 20:00 36.2 88 20 116/60 (78) 99 Room Air 08/06/21 16:00 36.8 92 20 132/62 (85) 96 Room Air 08/06/21 12:00 36.5 95 20 114/69 (84) 97 Room Air I & O 08/07/21 07:00 Intake Total 3340 ml Output Total 4510 ml Balance -1170 ml General Appearance: No Apparent Distress, WD/WN, Other (He is not in as much in pain as he was yesterday, more comfortable at rest) HEENT: PERRL/EOMI Neck: Normal Inspection, Supple Respiratory: Chest Non Tender, Lungs Clear, Normal Breath Sounds, No Accessory Muscle Use, No Respiratory Distress Cardiovascular: Regular Rate, Rhythm, No JVD Gastrointestinal: Normal Bowel Sounds, Non Tender, Soft Back: Normal Inspection Extremity: Other (both feet are dressed from surgery, legs are swollen but decreased from previous days, non tender) Neurologic/Psychiatric: Alert, Oriented x3, Normal Mood/Affect Skin: Warm/Dry (calf B/L) Lymphatic: No Adenopathy Results Lab Laboratory Tests 08/06/21 12:38: Activated Partial Thromboplast Time 130*H 08/06/21 19:59: Activated Partial Thromboplast Time 75H 08/07/21 01:53: Activated Partial Thromboplast Time 70H, White Blood Count 4.4, Red Blood Count 2.84L, Hemoglobin 11.4L, Hematocrit 32L, Mean Corpuscular Volume 114H, Mean Corpuscular Hemoglobin 40H, Mean Corpuscular Hemoglobin Concent 35, Red Cell Distribution Width 13.1, Platelet Count 109L, Mean Platelet Volume 9.9, Percent Immature Platelet Fraction 2.3, Prothrombin Time 14.7, INR Comment 1.1 Microbiology 08/05/21 MRSA Screen - Final, Complete MRSA not isolated 08/03/21 Urine Culture - Final, Complete Mixed Bacterial Aleta 08/03/21 Blood Culture - Preliminary, Resulted No growth 08/03/21 Gram Stain - Final, Complete 08/03/21 Wound Culture - Final, Complete Gram Negative Richard Corynebacterium species See Comments Assessment/Plan Assessment/Plan Assessment and Plan Sepsis due to gangrenous wounds on feet S/P Amputation of bilateral 1st, 2nd and 3rd toes, left partial amputation of the 2nd metatarsal head Continue Vanc, Clinda and Unasyn PAD Complete occlusion of left superficial femoral and popliteal arteries with reconstitution in the calf Dr Powell consulted, will assess and if able attempt peripheral intervention to assist with wound healing Peripheral angio to be performed today DVT Recurrent DVTs, will need lifelong anticoagulation Consider heme evaluation as outpatient for hypercoag work up Heparin gtt Tobacco abuse Alcohol use Recommend cessation Problems: (1) Gangrene of both feet (2) PAD (peripheral artery disease) (3) Acute deep vein thrombosis (DVT) of both lower extremities Supervisory-Addendum Brief Verification & Attestation Participated in pt care: history, MDM, physical Personally performed: exam, history, MDM, supervision of care Care discussed with: Medical Student Procedures: n/a Results interpretation: Verified all documentation A medical student performed and documented this service in my presence. I reviewed and verified all information documented by the medical student and made modifications to such information, when appropriate. I personally performed the physical exam and medical decision making. NELSON DOSS Aug 07, 2021 11:12 RAMIN FLORES MD Aug 07, 2021 19:56
--- NOTE | 2021-08-07 13:09 | Progress Note - Cardiology ---
Cardiology SOAP Progress Note Subjective: Continuing pain at the surgical sites No cp or palp or syncope or shortness of breath at rest No n/v/d Gen malaise present Objective: I&O/Vital Signs 08/07/21 08/07/21 08/07/21 08/07/21 04:00 08:00 09:00 12:00 Temp 37.3 36.9 Pulse 80 85 Resp 18 20 B/P (MAP) 108/65 (79) 107/68 (81) Pulse Ox 99 100 96 O2 Delivery Room Air Room Air Room Air Room Air 08/07/21 00:00 Intake Total 2290 ml Output Total 3710 ml Balance -1420 ml Constitutional: AAO x 3, well-developed, well-nourished Respiratory: No accessory muscle use; other (good, bilateral air entry; some coarse basal crackles) Cardiovascular: regular rate-rhythm, S1 and S2 (soft ANUPAMA at card base), systolic murmur Gastrointestional: No tender; soft; No guarding, No rebound; audible bowel sounds Extremities: other (bilateral leg swelling and reddish discoloration and thickening of the skin of the legs; s/p amputation of bilat 1, 2, 3 toes) Skin: rash (see under Extremeties exam) Results/Procedures: Labs Laboratory Tests 08/06/21 19:59: Activated Partial Thromboplast Time 75H 08/07/21 01:53: Activated Partial Thromboplast Time 70H, White Blood Count 4.4, Red Blood Count 2.84L, Hemoglobin 11.4L, Hematocrit 32L, Mean Corpuscular Volume 114H, Mean Corpuscular Hemoglobin 40H, Mean Corpuscular Hemoglobin Concent 35, Red Cell Distribution Width 13.1, Platelet Count 109L, Mean Platelet Volume 9.9, Percent Immature Platelet Fraction 2.3, Prothrombin Time 14.7, INR Comment 1.1 Microbiology 08/05/21 MRSA Screen - Final, Complete MRSA not isolated 08/03/21 Urine Culture - Final, Complete Mixed Bacterial Aleta 08/03/21 Blood Culture - Preliminary, Resulted No growth 08/03/21 Gram Stain - Final, Complete 08/03/21 Wound Culture - Final, Complete Gram Negative Richard Corynebacterium species See Comments Laboratory Tests 08/05/21 18:22 08/06/21 07:35 08/07/21 01:53 A/P: Assessment: Sepsis due to wet gangrenous wounds on feet - Amputation of bilateral 1st, 2nd and 3rd toes, left partial amputation of the 2nd metatarsal head and bilateral foot block on 08/05/21 PAD - Peripheral angio on 08-07-21: complete occlusion of the left superficial femoral (entire length, beginning at the ostium) and popliteal arteries with reconstitution in the calf (posterior tibial). This is not amenable to intervention or surgery; no significant PAD on the R DVT - Recurrent bilateral DVT Tobacco abuse - cessation advised Plan: * I again discussed his peripheral angio findings (see under Assessment) and his CV issues with the patient and have advised smoking cessation * Continue medical management for PAD * Monitor labs YENY SKELTON MD FACP FAC CCDS Aug 07, 2021 13:09
--- NOTE | 2021-08-07 13:59 | OPERATIVE REPORT ---
DATE OF SERVICE: 08/07/2021 PERIPHERAL ANGIOGRAPHY REPORT INDICATION FOR PROCEDURE: The patient is a 41-year-old gentleman, who has bilateral gangrenous toes for which he has had a partial amputation on both sides. Noninvasive imaging had indicated significant disease of the left leg and probable disease on the right side. Peripheral angiography was carried out today after having obtained an informed consent. DESCRIPTION OF PROCEDURE: He was brought to the cardiac catheterization laboratory in a fasting state. The right groin was prepared and draped in the usual sterile fashion. Lidocaine 1% was used for local anesthesia. Modified Seldinger technique was used to advance a 5-Fijian sheath into the right femoral artery. We used a 5-Fijian pigtail catheter to carry out abdominal aortic angiography with the tip of the pigtail catheter placed at the level of L1. Subsequently, we used a crossover catheter to engage the contralateral common iliac (left common iliac) and carried out selective angiography. We then wired the left iliac system and advanced a straight catheter into the left common femoral and carried out selective angiography with runoff down to the level of the ankles. The straight catheter was then pulled back into the right common iliac and selective angiography was performed with runoff down to the level of the ankles. He then underwent closure with the Mynx after the sheath was removed from the right femoral artery. ABDOMINAL AORTIC ANGIOGRAPHY: Abdominal aortic angiography did not indicate any significant abdominal aortic aneurysm, dissection or stenosis. Renal arteries were identified and do not exhibit significant disease. Aortoiliac bifurcation does not exhibit any significant disease. ANGIOGRAPHY OF THE ARTERIAL CIRCULATION OF THE LEFT LEG: Arterial circulation of the left leg is patent and the common iliac and the external and internal iliacs. The left common femoral is intact, but the left superficial femoral appears occluded at the ostium. The left deep femoral is intact and supplies collaterals to the distal leg vessels. There appears to be a one-vessel runoff (posterior tibial) in the left leg. The superficial femoral on the left side and the popliteal on the left side are completely occluded. ANGIOGRAPHY OF THE ARTERIAL CIRCULATION OF THE RIGHT LEG: The common iliac, internal iliac, external iliac, common femoral, superficial femoral, deep femoral, and popliteal arteries are intact on the right side. The popliteal trifurcates and there appears to be a 3-vessel runoff distally. CONCLUSIONS: Peripheral arterial disease primarily consisting of a long occlusion of the left superficial femoral artery beginning at its ostium and including complete occlusion of the left popliteal. The left deep femoral provides collaterals to the distal leg arteries and there appears to be a single vessel runoff. Job ID: [id number] DocumentID: [id number] Dictated Date: 08/07/2021 11:44:29 Rating Officer Date: 08/07/2021 13:58:44 Dictated By: YENY SKELTON MD, MA, FACP, FACC,
[2021-08-07] MEDS ORDERED: APIXABAN 5 MG (ELIQUIS) TABLET PO SCH (15:00)
[2021-08-08] MEDS: NS IV 1000 ML 1,000 ML IV SCH ×2 (01:10→04:16)
[2021-08-08] MEDS: HYDROcodone/APAP 5 MG/325 MG (LORTAB) TAB PO PRN ×3 (01:15→16:57)
[2021-08-08] MEDS: AMPICILLIN/SULBACTAM 3 GM/NS 100 ML IVPB IV SCH ×4 (03:50→11:36)
[2021-08-08 04:00] VITALS: BP 108/56
[2021-08-08] MEDS: RIVAROXABAN 15 MG TABLET (XARELTO) PO SCH ×2 (06:43→16:57)
--- NOTE | 2021-08-08 07:48 | Progress Note - Surgery ---
BROOK LYLE 08/08/21 0748: Subjective Time Seen by a Provider: 07:00 Subjective/Events-last exam Pt is well controlled on his current pain medications. He denies Fever, chills, SOB, CP, heart palpations, N/V, or abdominal pain. Objective Exam Vital Signs Date Time Temp Pulse Resp B/P (MAP) Pulse Ox O2 Delivery O2 Flow Rate FiO2 08/08/21 04:00 36.8 77 20 108/56 (73) 99 Room Air 08/08/21 01:00 75 08/07/21 23:30 36.6 71 20 116/67 (83) 99 Room Air 08/07/21 22:15 71 08/07/21 20:15 Room Air 08/07/21 19:19 36.3 71 18 98/54 (69) 98 Room Air 08/07/21 15:34 37.1 92 18 126/78 (94) 98 Room Air 08/07/21 14:00 91 18 105/69 (81) 94 Room Air 08/07/21 13:30 92 18 105/70 (82) 93 Room Air 08/07/21 13:00 87 08/07/21 13:00 97 08/07/21 13:00 90 18 105/82 (90) 95 Room Air 08/07/21 12:30 84 18 109/66 (80) 93 Room Air 08/07/21 12:00 96 Room Air 08/07/21 11:45 87 18 106/70 (82) 94 Room Air 08/07/21 11:30 84 18 107/68 (81) 93 Room Air 08/07/21 11:15 90 18 107/77 (87) 94 Room Air 08/07/21 11:00 37.0 85 18 118/69 (85) 93 Room Air 08/07/21 09:00 Room Air 08/07/21 08:00 36.9 85 20 107/68 (81) 100 Room Air I & O 08/08/21 07:00 Intake Total 1190 ml Output Total 2575 ml Balance -1385 ml Capillary Refill : Less Than 3 Seconds General Appearance: No Apparent Distress, WD/WN, Other (he is still very comfortable like he was yesterday, his pain meds seems to be working well) HEENT: PERRL/EOMI, Normal ENT Inspection Neck: Normal Inspection, Supple Respiratory: Chest Non Tender, No Accessory Muscle Use, No Respiratory Distress Cardiovascular: Regular Rate, Rhythm, No JVD Gastrointestinal: normal bowel sounds, non tender, soft Extremity: Other (right greater than left swollen, feet are dressed ) Neurologic/Psychiatric: Alert, Oriented x3, Normal Mood/Affect Skin: Warm/Dry (above his dressing his left leg and right leg are very warm, right leg skin tightness has decreased signficantly over the past few days althoug some pockets of skin tightness are present) Lymphatic: No Adenopathy Results Lab Laboratory Tests 08/08/21 01:55: Activated Partial Thromboplast Time 46H Microbiology 08/07/21 MRSA Screen - Final, Complete MRSA not isolated 08/03/21 Urine Culture - Final, Complete Mixed Bacterial Aleta 08/03/21 Blood Culture - Preliminary, Resulted No growth 08/03/21 Gram Stain - Final, Complete 08/03/21 Wound Culture - Final, Complete Gram Negative Richard Corynebacterium species See Comments Assessment/Plan Assessment/Plan Assessment/Plan Wet gangrene and ischemic toes bilateral 1-3 s/p amputation of b/l toes 1-3 and left second metatarsal head and b/l foot blocks DVT bilateral lower extremity Vascular occlusive disease bilateral lower extremity Tobacco use Wound care- iodoform gauze, did not tolerate wound vac. patient understands may need further surgical intervention. Pain control. Continue abx Discussed need for smoking cessation CHASE FERNANDEZ DO 08/08/21 1042: Subjective Date Seen by a Provider: Aug 08, 2021 Subjective/Events-last exam Pain better controlled. Lower extremities less swelling. Feeling better. Denies n/v fever sweats chills shortness of breath or chest pain. Objective Exam General Appearance: No Apparent Distress HEENT: PERRL/EOMI, Normal ENT Inspection Neck: Normal Inspection Respiratory: Chest Non Tender, No Accessory Muscle Use, No Respiratory Distress Cardiovascular: Regular Rate, Rhythm, No JVD Gastrointestinal: non tender, soft Neurologic/Psychiatric: Alert, Oriented x3, Normal Mood/Affect Skin: Warm/Dry (above his dressing his left leg and right leg are very warm, right leg skin tightness has decreased signficantly. right greater than left, chronic skin changes to feet) Lymphatic: No Adenopathy Assessment/Plan Assessment/Plan Assessment/Plan Wet gangrene and ischemic toes bilateral 1-3 s/p amputation of b/l toes 1-3 and left second metatarsal head and b/l foot blocks DVT bilateral lower extremity Vascular occlusive disease bilateral lower extremity Tobacco use Wound care- iodoform gauze, did not tolerate wound vac. patient understands may need further surgical intervention. Pain control. Continue abx Discussed need for smoking cessation Supervisory-Addendum Brief Verification & Attestation Participated in pt care: history, MDM, physical Personally performed: exam, history, MDM, supervision of care Care discussed with: Medical Student Procedures: n/a Results interpretation: Verified all documentation Verification and Attestation of Medical Student E/M Service A medical student performed and documented this service in my presence. I reviewed and verified all information documented by the medical student and made modifications to such information, when appropriate. I personally performed the physical exam and medical decision making. Chase Fernandez, Aug 08, 2021,10:42 BROOK LYLE Aug 08, 2021 07:48 CHASE FERNANDEZ DO Aug 08, 2021 10:42
[2021-08-08 08:11] VITALS: BP 123/66
--- NOTE | 2021-08-08 09:39 | Progress Note - Cardiology ---
Cardiology SOAP Progress Note Subjective: Sitting up in bed No c/o CP or right groin discomfort Feels swelling to LE is improving Objective: I&O/Vital Signs 08/08/21 08/08/21 08/08/21 08/08/21 07:00 08:00 08:11 13:00 Temp 37.2 Pulse 75 80 72 Resp 20 B/P (MAP) 123/66 (85) Pulse Ox 98 O2 Delivery Room Air Room Air 08/08/21 15:54 Temp 37.2 Pulse 74 Resp 16 B/P (MAP) 119/65 (83) Pulse Ox 99 O2 Delivery Room Air 08/08/21 00:00 Intake Total 790 ml Output Total 1400 ml Balance -610 ml Side: right Groin site without hematoma: Yes Bruising: mild bruising Constitutional: AAO x 3, well-developed, well-nourished Respiratory: No accessory muscle use; other (good, bilateral air entry; some coarse basal crackles) Cardiovascular: regular rate-rhythm, S1 and S2 (soft ANUPAMA at card base), systolic murmur Gastrointestional: No tender; soft; No guarding, No rebound; audible bowel sounds Extremities: other (bilateral leg swelling and reddish discoloration and thickening of the skin of the legs; s/p amputation of bilat 1, 2, 3 toes) Skin: rash (see under Extremeties exam) Results/Procedures: Labs Laboratory Tests 08/08/21 01:55: Activated Partial Thromboplast Time 46H Microbiology 08/07/21 MRSA Screen - Final, Complete MRSA not isolated 08/03/21 Urine Culture - Final, Complete Mixed Bacterial Aleta 08/03/21 Blood Culture - Preliminary, Resulted No growth 08/03/21 Gram Stain - Final, Complete 08/03/21 Wound Culture - Final, Complete Gram Negative Richard Corynebacterium species See Comments A/P: Assessment: Sepsis due to wet gangrenous wounds on feet - Amputation of bilateral 1st, 2nd and 3rd toes, left partial amputation of the 2nd metatarsal head and bilateral foot block on 08/05/21 PAD - Peripheral angio on 08-07-21: complete occlusion of the left superficial femoral (entire length, beginning at the ostium) and popliteal arteries with reconstitution in the calf (posterior tibial). This is not amenable to in tervention or surgery; no significant PAD on the R DVT - Recurrent bilateral DVT Tobacco abuse - cessation advised Plan: * I again discussed his peripheral angio findings (see under Assessment) and his CV issues with the patient and have advised smoking cessation * Continue medical management for PAD * Monitor labs LANIE TELLO Aug 08, 2021 09:39
[2021-08-08] MEDS: CLINDAMYCIN 600 MG/50 ML IVPB 50 ML IV SCH (11:36)
[2021-08-08] MEDS: VANCOMYCIN 1 GM/NS 250 ML IVPB IV SCH ×2 (11:38)
--- NOTE | 2021-08-08 12:29 | Progress Note - Cardiology ---
Cardiology SOAP Progress Note Subjective: No cp or palp or syncope No shortness of breath Discomfort at site of surgery has improved No n/v/d Objective: I&O/Vital Signs 08/08/21 08/08/21 08/08/21 08/08/21 01:00 04:00 07:00 08:00 Temp 36.8 Pulse 75 77 75 Resp 20 B/P (MAP) 108/56 (73) Pulse Ox 99 O2 Delivery Room Air Room Air 08/08/21 08:11 Temp 37.2 Pulse 80 Resp 20 B/P (MAP) 123/66 (85) Pulse Ox 98 O2 Delivery Room Air 08/08/21 00:00 Intake Total 790 ml Output Total 1400 ml Balance -610 ml Side: right Groin site without hematoma: Yes Bruising: mild bruising Constitutional: AAO x 3, well-developed, well-nourished Respiratory: No accessory muscle use; other (good, bilateral air entry; some coarse basal crackles) Cardiovascular: regular rate-rhythm, S1 and S2 (soft ANUPAMA at card base), systolic murmur Gastrointestional: No tender; soft; No guarding, No rebound; audible bowel so unds Extremities: other (bilateral leg swelling and reddish discoloration and thickening of the skin of the legs; s/p amputation of bilat 1, 2, 3 toes) Skin: rash (see under Extremeties exam) Results/Procedures: Labs Laboratory Tests 08/08/21 01:55: Activated Partial Thromboplast Time 46H Microbiology 08/07/21 MRSA Screen - Final, Complete MRSA not isolated 08/03/21 Urine Culture - Final, Complete Mixed Bacterial Aleta 08/03/21 Blood Culture - Preliminary, Resulted No growth 08/03/21 Gram Stain - Final, Complete 08/03/21 Wound Culture - Final, Complete Gram Negative Richard Corynebacterium species See Comments Laboratory Tests 08/07/21 01:53 A/P: Assessment: Sepsis due to wet gangrenous wounds on feet - Amputation of bilateral 1st, 2nd and 3rd toes, left partial amputation of the 2nd metatarsal head and bilateral foot block on 08/05/21 PAD - Peripheral angio on 08-07-21: complete occlusion of the left superficial femoral (entire length, beginning at the ostium) and popliteal arteries with reconstitution in the calf (posterior tibial); this is not amenable to intervention or surgery. No significant PAD on the R DVT - Recurrent bilateral DVT Tobacco abuse - cessation advised Plan: * I again discussed his peripheral angio findings (see under Assessment) and his CV issues with the patient and have advised smoking cessation * Continue medical management for PAD * Monitor labs YENY SKELTON MD FACP [facility] Aug 08, 2021 12:29
--- NOTE | 2021-08-08 13:48 | Physical Therapy Evaluation ---
PT Evaluation-General Medical Diagnosis Admission Date Aug 03, 2021 at 18:19 Medical Diagnosis: toe amputations (1-3 bilaterally) Onset Date: Aug 05, 2021 Therapy Diagnosis Therapy Diagnosis: impaired mobility, strength, endurance Precautions Precautions/Isolations: Standard Precautions Referral Physician: Bianka Reason for Referral: Evaluation/Treatment Medical History Additional Medical History DVT, bilateral foot pain, patient also had a heart cath yesterday Reviewed History: Yes Social History Home: Multilevel Current Living Status: Spouse Entry Into Home: Stairs With Railing PT Steps Into Home: 5 Prior Prior Level of Function SCALE: Activities may be completed with or without assistive devices. 8-Vefmnmtqxf-ihzyaem completes the activity by him/herself with no assistance from a helper. 5-Set-up or Clean-up Assistance-helper sets up or cleans up; patient completes activity. [place] assists only prior to or following the activity. 4-Supervision or Touching Assistance-helper provides verbal cues and/or touching/steadying and/or contact guard assistance as patient completes activity. Assistance may be provided throughout the activity or intermittently. 3-Partial/Moderate Assistance-helper does LESS THAN HALF the effort. [place] lifts, holds or supports trunk or limbs, but provides less than half the effort. 2-Substantial/Maximal Assistance-helper does MORE THAN HALF the effort. [place] lifts or holds trunk or limbs and provides more than half the effort. 1-Buyuccvsp-kkubqs does ALL the effort. Patient does none of the effort to complete the activity. Or, the assistance of 2 or more helpers is required for the patient to complete the activity. If activity was not attempted, code reason: 7-Patient Refused. 9-Not Applicable-not attempted and the patient did not perform the activity before the current illness, exacerbation or injury. 10-Not Attempted due to Environmental Limitations-(lack of equipment, weather restraints, etc.). 88-Not Attempted due to Medical Conditions or Safety Concerns. Bed Mobility: 6 Transfers (B,C,W/C): 6 Gait: 6 Stairs: 6 Indoor Mobility (Ambulation): Independent Stairs: Independent PT Evaluation-Current Subjective Patient in bed pre tx, agrees to PT, has no pain at rest but severe pain with movement Pt/Family Goals to be independent at home Objective Patient Orientation: Person, Place, Situation ROM/Strength ROM Lower Extremities generally limited especially in ankles Strength Lower Extremities NT due to pain Sensory Vision: Wears Glasses Hearing: Functional Sensation Right Lower Extremit: Impaired Sensation Left Lower Extremity: Impaired Transfers Roll Left to Right (QC): 6 Sit to Lying (QC): 6 Lying to Sitting/Side of Bed(Q: 6 Attempted standing. Patient cannot bend either knee to 90 degrees nor his ankles enough to stand. Patient can push from the bed with his arms and bring his bottom off the bed while bearing some weight through his feet but only for about 30 seconds. He does this twice. Pain prevents him from being able to dorsiflex enough to stand. Balance Sitting Static: Normal Sitting Dynamic: Normal Standing Static: Poor Treatment BLE supine x20 (AP, HS) Assessment/Needs Patient in bed post tx with nurse call, phone, tray, all needs met. Patient has impaired mobility, strength, endurance. He cannot stand at this time due to pain with dorsiflexion. He will most likely need a WC at discharge. Rehab Potential: Fair PT Correction Goals Correction Goals PT Chemical Laboratory Tester Goals Time Frame: Aug 15, 2021 Roll Left & Right (QC): 6 Sit to Lying (QC): 6 Lying-Sitting on Side/Bed(QC): 6 Sit to Stand (QC): 3 Chair/Vkr-az-Fijdq Xfer(QC): 3 Walk 10 feet (QC): 3 PT Plan Problem List Problem List: Activity Tolerance, Functional Strength, Safety, Balance, Gait, Transfer, Bed Mobility, ROM Treatment/Plan Treatment Plan: Continue Plan of Care Treatment Plan: Bed Mobility, Education, Functional Activity [place], Functional Strength, Gait, Safety, Therapeutic Exercise, Transfers Treatment Duration: Aug 15, 2021 Frequency: 6 times per week Estimated Hrs Per Day: .25 hour per day Patient and/or Family Agrees t: Yes Safety Risks/Education Patient Education: Reviewed Precautions, Correct Positioning, Safety Issues Teaching Recipient: Patient Teaching Methods: Demonstration, Discussion Response to Teaching: Reinforcement Needed Discharge Recommendations Plan Patient will perform bed mobility and transfer training, balance and endurance training, functional strengthening, stair training, gait training, and education, to improve functional mobility and independence at home. Therapy Discharge Recommendati: Scheduled Assistance, Home & Family, Post Acute PT Time/GCodes Time In: 1307 Time Out: 1325 Total Billed Treatment Time: 18 Total Billed Treatment 1 visit JUAN RAMON IBRAHIM PT Aug 08, 2021 13:48
--- NOTE | 2021-08-08 13:57 | Occupational Therapy Eval ---
OT Evaluation-General/PLF Medical Diagnosis Admission Date Aug 03, 2021 at 18:19 Medical Diagnosis: toe amputations (1-3 bilaterally) Onset Date: Aug 05, 2021 Therapy Diagnosis Therapy Diagnosis: Impaired adls, balance, LE strength, iadls, endurance Precautions Precautions/Isolations: Standard Precautions Weight Bear Status Weight Bearing Restriction: Weight Bearing/Tolerated Referral Physician: bethany Medical History Additional Medical History DVT, bilateral foot pain, pt also had a heart cath yesterday. Current History Pt presents to ER with aram foot pain. Found to have gangrenous wound on aram feet. He is now s/p amputation aram toes 1-3 and 2nd metatarsal. Per order, he is WBAT. Pt reports living in a single story home with his . He was indep with adls and reports that his is now performing all iadls due to recent infections and pain in feet. He works from home and does not own a vehicle, thus takes cabs for transportation. Reviewed History: Yes Social History Home: Single Level Current Living Status: Spouse Entry Into Home: Stairs With Railing Steps Into Home: 5 ADL-Prior Level of Function SCALE: Activities may be completed with or without assistive devices. 9-Okykemuyfw-pzrylcc completes the activity by him/herself with no assistance from a helper. 5-Set-up or Clean-up Assistance-helper sets up or cleans up; patient completes activity. [place] assists only prior to or following the activity. 4-Supervision or Touching Assistance-helper provides verbal cues and/or touching/steadying and/or contact guard assistance as patient completes activity. Assistance may be provided throughout the activity or intermittently. 3-Partial/Moderate Assistance-helper does LESS THAN HALF the effort. [place] li fts, holds or supports trunk or limbs, but provides less than half the effort. 2-Substantial/Maximal Assistance-helper does MORE THAN HALF the effort. [place] lifts or holds trunk or limbs and provides more than half the effort. 0-Dfmjmtowv-lxpezi does ALL the effort. Patient does none of the effort to complete the activity. Or, the assistance of 2 or more helpers is required for the patient to complete the activity. If activity was not attempted, code reason: 7-Patient Refused. 9-Not Applicable-not attempted and the patient did not perform the activity before the current illness, exacerbation or injury. 10-Not Attempted due to Environmental Limitations-(lack of equipment, weather restraints, etc.). 88-Not Attempted due to Medical Conditions or Safety Concerns. Self Care: Independent Functional Cognition: Independent DME/Equipment: Tub/Shower Pt reports that he is looking into getting a shower chair. OT Current Status Subjective Pt reports zero pain when at rest. With any light touch or movement, pain increases. No numerical value given. Appearance Pt left sitting upright in bed, all needs within reach. Mental Status/Objective Patient Orientation: Person, Place, Situation Attachments: Telemetry Current Hand Dominance: Right Upper Extremity ROM WNL Upper Extremity Strength WNL ADL-Treatment Eating (QC): 6 Oral Hygiene (QC): 5 (per clinical judgement) Upper Body Dressing (QC): 5 (per clinical judgement ) Lower Body Dressing (QC): 1 (per clinical judgement. ) On/Off Footwear (QC): 1 Supine>sit: indep, extra time due to pain. Good sitting balance at EOB. Dep to don aram socks due to bandages and pain. (unable to don sock fully over heel). Attempt at standing x2 with assist of 2. Pt unable to flex knee to 90 degrees secondary to significant edema, R worse than L. Pt able to lift bottom off bed but unable to come to full standing. Increased pain exhibited with both standing attempts. At this time, pt would need second person to assist with balance as other person managed LB clothing over hips. Anticipate no difficulties with donning shirt at EOB. Pt can be self limiting at times. Education OT Patient Education: Correct positioning, Modified ADL techniques, Progress toward Goal/Update tx plan, Purpose of tx/functional activities, Reviewed pr ecautions, Rehab process, Safety issues, Transfer techniques, Use of adapted equipment Teaching Recipient: Patient Teaching Methods: Demonstration, Discussion Response to Teaching: Verbalize Understanding, Unable to Return Demonstration, Reinforcement Needed OT Electronics Design Engineer Goals Assisted Goals Time Frame: Aug 25, 2021 Oral Hygiene (QC): 6 Toileting Hygiene (QC): 4 Lower Body Dressing (QC): 4 On/Off Footwear (QC): 3 1=Demonstrate adherence to instructed precautions during ADL tasks. 2=Patient will verbalize/demonstrate understanding of assistive devices/modifications for ADL. 3=Patient will improve strength/tolerance for activity to enable patient to perform ADL's. OT Education/Plan Problem List/Assessment Assessment: Impaired Funct Balance, Impaired I ADL's, Impaired Self-Care Skills Discharge Recommendations Plan/Recommendations: Continue POC Therapy Discharge Recommendati: Post Acute OT Treatment Plan/Plan of Care Treatment,Training & Education: Yes Patient would benefit from OT for education, treatment and training to promote independence in ADL's, mobility, safety and/or upper extremity function for ADL's. Plan of Care: ADL Retraining, Functional Mobility, UE Funct Exercise/Act Treatment Duration: Aug 25, 2021 Frequency: 5 times per week Estimated Hrs Per Day: .25 hour per day Rehab Potential: Fair Time/GCodes Start Time: 13:09 Stop Time: 13:25 Total Time Billed (hr/min): 16 Billed Treatment Time 1 visit, Stephanie Navarro OT Aug 08, 2021 13:57
--- NOTE | 2021-08-08 13:58 | Progress Note - Hospitalist ---
Subjective HPI/CC On Admission Date Seen by Provider: Aug 08, 2021 Time Seen by Provider: 11:25 Patient is a 41-year-old male who presented to the emergency department due to bilateral foot pain. He is unsure when this started but knows it is been worsening over the past few days and decided to seek evaluation in the ER due to the pain. He believes that he just had a fungal infection. Upon examination by the ER physician it was recognized that he had gangrenous wounds on both of his feet. He met sepsis criteria and due to the significant wounds he was admitted for IV antibiotics and surgical evaluation for possible debridement. This morning he reports feeling okay but still having pain. He has done better with morphine instead of fentanyl. His only other concern is about being hungry. Subjective/Events-last exam His feeling okay today. His pain is well controlled. He has not yet worked with physical therapy. He has been eating and drinking. He has no other complaints or concerns. Objective Exam Vital Signs Vital Signs Date Time Temp Pulse Resp B/P (MAP) Pulse Ox O2 Delivery O2 Flow Rate FiO2 08/08/21 08:11 37.2 80 20 123/66 (85) 98 Room Air 08/05/21 16:40 10 Capillary Refill : Less Than 3 Seconds General Appearance: No Apparent Distress, WD/WN Respiratory: Lungs Clear, Normal Breath Sounds, No Respiratory Distress Cardiovascular: Regular Rate, Rhythm, No Murmur Gastrointestinal: Normal Bowel Sounds, Non Tender, Soft Extremity: Pedal Edema, Other (Bilateral foot amputations with dressings in place) Neurologic/Psychiatric: Alert, Oriented x3, Normal Mood/Affect Skin: Normal Color, Warm/Dry Results/Procedures Lab Patient resulted labs reviewed. Imaging: Reviewed Imaging Report Assessment/Plan Assessment and Plan Assess & Plan/Chief Complaint Gangrenous wounds on feet S/P Amputation of bilateral 1st, 2nd and 3rd toes, left partial amputation of the 2nd metatarsal head Transition to oral Augmentin PT/OT IRU evaluation PAD Dr Powell following Peripheral angio showed total occlusions with collaterals not amenable to intervention DVT Transitioned to Xarelto Tobacco abuse Alcohol use Recommend cessation Sepsis, resolved Diagnosis/Problems Diagnosis/Problems (1) Gangrene of both feet Status: Acute (2) PAD (peripheral artery disease) Status: Acute (3) Acute deep vein thrombosis (DVT) of both lower extremities Status: Acute RAMIN FLORES MD Aug 08, 2021 13:58
[2021-08-08 15:54] VITALS: BP 119/65
[2021-08-08] MEDS ORDERED: ONDANSETRON 4 MG (ZOFRAN) ORAL DISSOLVE TAB PO PRN (16:45)
[2021-08-08 20:00] VITALS: BP 108/59
[2021-08-08] MEDS: AMOX/CLAV 600 MG/5 ML (AUGMENTIN) 75 ML BTL PO SCH (20:13)
[2021-08-08] MEDS: MELATONIN 3 MG TABLET PO PRN (20:16)
[2021-08-09] MEDS: HYDROcodone/APAP 5 MG/325 MG (LORTAB) TAB PO PRN ×2 (00:06→08:07)
[2021-08-09 00:08] VITALS: BP 123/63
[2021-08-09 06:02] LABS: BASOPHILS % (AUTO) 1 % (0-10); EOSINOPHILS # (AUTO) 0.3 10^3/uL (0.0-0.3); EOSINOPHILS % (AUTO) 6 % (0-10); HEMATOCRIT 35 % (40-54); HEMOGLOBIN 12.1 g/dL (13.3-17.7); LYMPHOCYTES # (AUTO) 1.6 10^3/uL (1.0-4.0); LYMPHOCYTES % (AUTO) 34 % (12-44); MEAN CORPUSCULAR HEMOGLOBIN 40 pg (25-34); MEAN CORPUSCULAR HGB CONC 35 g/dL (32-36); MEAN CORPUSCULAR VOLUME 116 fL (80-99); MEAN PLATELET VOLUME 10.2 fL (9.0-12.2); MONOCYTES # (AUTO) 0.3 10^3/uL (0.0-1.0); MONOCYTES % (AUTO) 7 % (0-12); NEUTROPHILS # (AUTO) 2.5 10^3/uL (1.8-7.8); NEUTROPHILS % (AUTO) 53 % (42-75); PLATELET COUNT 156 10^3/uL (130-400); WHITE BLOOD COUNT 4.7 10^3/uL (4.3-11.0)
[2021-08-09] MEDS: RIVAROXABAN 15 MG TABLET (XARELTO) PO SCH (06:15)
[2021-08-09 06:18] LABS: CALCIUM 8.8 MG/DL (8.5-10.1); CREATININE SERUM 0.65 MG/DL (0.60-1.30); POTASSIUM 3.7 MMOL/L (3.6-5.0)
--- NOTE | 2021-08-09 07:49 | Progress Note - Surgery ---
BROOKGABIJATINDER A MED STUDENT 08/09/21 0749: Subjective Date Seen by a Provider: Aug 09, 2021 Time Seen by a Provider: 07:30 Subjective/Events-last exam Pt up in bed eating breakfast, reports he feels well today. Pt states his pain is 5/10. Denies N/V/D/C, fever, chills, chest pain or SOA. Pt's last BM was yesterday. Pt reports no other concerns. Review of Systems General: No Chills, No Fatigue HEENT: No Head Aches, No Visual Changes Pulmonary: No Dyspnea, No Cough Cardiovascular: No: Chest Pain, Palpitations Gastrointestinal: No: Nausea, Vomiting, Abdominal Pain, Diarrhea, Constipation Genitourinary: No Dysuria, No Frequency Musculoskeletal: foot pain; No: neck pain Neurological: No: Weakness, Numbness Objective Exam Vital Signs Date Time Temp Pulse Resp B/P (MAP) Pulse Ox O2 Delivery O2 Flow Rate FiO2 08/09/21 00:08 36.5 77 18 123/63 (83) 93 Room Air 08/08/21 20:20 Room Air 08/08/21 20:00 36.9 78 20 108/59 (75) 98 Room Air 08/08/21 15:54 37.2 74 16 119/65 (83) 99 Room Air 08/08/21 13:00 72 08/08/21 08:11 37.2 80 20 123/66 (85) 98 Room Air 08/08/21 08:00 Room Air I & O 08/09/21 07:00 Intake Total 3677 ml Output Total 4401 ml Balance -724 ml Capillary Refill : Less Than 3 Seconds General Appearance: No Apparent Distress, WD/WN HEENT: PERRL/EOMI, Normal ENT Inspection Neck: Full Range of Motion, Normal Inspection Respiratory: Lungs Clear, Normal Breath Sounds, No Respiratory Distress Cardiovascular: Regular Rate, Rhythm, No Murmur Gastrointestinal: normal bowel sounds, non tender, soft Extremity: Normal Capillary Refill, Normal Inspection, Pedal Edema (1+ pitting), Other (Bilateral foot amputations with dressings in place) Neurologic/Psychiatric: Alert, Oriented x3, Normal Mood/Affect Skin: Normal Color, Warm/Dry Lymphatic: No Adenopathy Results Lab Laboratory Tests 08/09/21 05:30: White Blood Count 4.7, Red Blood Count 3.01L, Hemoglobin 12.1L, Hematocrit 35L, Mean Corpuscular Volume 116H, Mean Corpuscular Hemoglobin 40H, Mean Corpuscular Hemoglobin Concent 35, Red Cell Distribution Width 13.6, Platelet Count 156, Mean Platelet Volume 10.2, Immature Granulocyte % (Auto) 0, Neutrophils (%) (Auto) 53, Lymphocytes (%) (Auto) 34, Monocytes (%) (Auto) 7, Eosinophils (%) (Auto) 6, Basophils (%) (Auto) 1, Neutrophils # (Auto) 2.5, Lymphocytes # (Auto) 1.6, Monocytes # (Auto) 0.3, Eosinophils # (Auto) 0.3, Basophils # (Auto) 0.0, Immature Granulocyte # (Auto) 0.0, Sodium Level 136, Potassium Level 3.7, Chloride Level 105, Carbon Dioxide Level 20L, Anion Gap 11, Blood Urea Nitrogen 3L, Creatinine 0.65, Estimat Glomerular Filtration Rate 135, BUN/Creatinine Ratio 5, Glucose Level 83, Calcium Level 8.8 Microbiology 08/07/21 MRSA Screen - Final, Complete MRSA not isolated 08/03/21 Urine Culture - Final, Complete Mixed Bacterial Aleta 08/03/21 Blood Culture - Preliminary, Resulted No growth 08/03/21 Gram Stain - Final, Complete 08/03/21 Wound Culture - Final, Complete Gram Negative Richard Corynebacterium species See Comments Assessment/Plan Assessment/Plan Admission Diagonsis Wet gangrene and ischemic toes bilaterally Assessment/Plan Wet gangrene and ischemic toes bilateral 1-3 s/p amputation of b/l toes 1-3 and left second metatarsal head and b/l foot blocks DVT bilateral lower extremity Vascular occlusive disease bilateral lower extremity Tobacco use Wound care- iodoform gauze, did not tolerate wound vac. patient understands may need further surgical intervention. Pain control. Continue abx Discussed need for smoking cessation CHASE FERNANDEZ DO 08/09/21 1433: Subjective Subjective/Events-last exam Pain controlled. Varies in intensity though. Patient no new complaints. Objective Exam General Appearance: No Apparent Distress, WD/WN HEENT: PERRL/EOMI, Normal ENT Inspection Neck: Full Range of Motion, Normal Inspection Respiratory: Chest Non Tender, No Accessory Muscle Use, No Respiratory Distress Cardiovascular: Regular Rate, Rhythm, No JVD Gastrointestinal: normal bowel sounds, non tender, soft Extremity: Normal Inspection, Pedal Edema (1+ pitting), Swelling, Other (Bi lateral foot amputations serosang drainage minimal, very scant slough, discoloration of feet) Neurologic/Psychiatric: Alert, Oriented x3, Normal Mood/Affect Skin: Normal Color, Warm/Dry Lymphatic: No Adenopathy Assessment/Plan Assessment/Plan Assessment/Plan Wet gangrene and ischemic toes bilateral 1-3 s/p amputation of b/l toes 1-3 and left second metatarsal head and b/l foot blocks DVT bilateral lower extremity Vascular occlusive disease bilateral lower extremity Tobacco use Wound care- iodoform gauze, did not tolerate wound vac. patient understands may need further surgical intervention. Pain control. Continue abx Discussed need for smoking cessation Supervisory-Addendum Brief Verification & Attestation Participated in pt care: history, MDM, physical Personally performed: exam, history, MDM, supervision of care Care discussed with: Medical Student Procedures: n/a Results interpretation: Verified all documentation Verification and Attestation of Medical Student E/M Service A medical student performed and documented this service in my presence. I reviewed and verified all information documented by the medical student and made modifications to such information, when appropriate. I personally performed the physical exam and medical decision making. Chase Fernandez, Aug 09, 2021,14:33 JATINDER NELSON MED STUDENT Aug 09, 2021 07:49 CHASE FERNANDEZ DO Aug 09, 2021 14:33
[2021-08-09 08:00] VITALS: BP 134/88
--- NOTE | 2021-08-09 09:19 | Progress Note - Cardiology ---
Cardiology SOAP Progress Note Subjective: No cp or palp or syncope No shortness of breath at rest Gen malaise and weakness No n/v/d Objective: I&O/Vital Signs 08/09/21 08/09/21 00:08 08:00 Temp 36.5 36.6 Pulse 77 76 Resp 18 18 B/P (MAP) 123/63 (83) 134/88 (103) Pulse Ox 93 99 O2 Delivery Room Air Room Air 08/09/21 00:00 Intake Total 2507 ml Output Total 3476 ml Balance -969 ml Side: right Groin site without hematoma: Yes Bruising: mild bruising Constitutional: AAO x 3, well-developed, well-nourished Respiratory: No accessory muscle use; other (good, bilateral air entry; some coarse basal crackles) Cardiovascular: regular rate-rhythm, S1 and S2 (soft ANUPAMA at card base), systolic murmur Gastrointestional: No tender; soft; No guarding, No rebound; audible bowel sounds Extremities: other (bilateral leg swelling and reddish discoloration and thickening of the skin of the legs; s/p amputation of bilat 1, 2, 3 toes) Skin: rash (see under Extremeties exam) Results/Procedures: Labs Laboratory Tests 08/09/21 05:30: White Blood Count 4.7, Red Blood Count 3.01L, Hemoglobin 12.1L, Hematocrit 35L, Mean Corpuscular Volume 116H, Mean Corpuscular Hemoglobin 40H, Mean Corpuscular Hemoglobin Concent 35, Red Cell Distribution Width 13.6, Platelet Count 156, Mean Platelet Volume 10.2, Immature Granulocyte % (Auto) 0, Neutrophils (%) (Auto) 53, Lymphocytes (%) (Auto) 34, Monocytes (%) (Auto) 7, Eosinophils (%) (Auto) 6, Basophils (%) (Auto) 1, Neutrophils # (Auto) 2.5, Lymphocytes # (Auto) 1.6, Monocytes # (Auto) 0.3, Eosinophils # (Auto) 0.3, Basophils # (Auto) 0.0, Immature Granulocyte # (Auto) 0.0, Sodium Level 136, Potassium Level 3.7, Chloride Level 105, Carbon Dioxide Level 20L, Anion Gap 11, Blood Urea Nitrogen 3L, Creatinine 0.65, Estimat Glomerular Filtration Rate 135, BUN/Creatinine Ratio 5, Glucose Level 83, Calcium Level 8.8 Microbiology 08/07/21 MRSA Screen - Final, Complete MRSA not isolated 08/03/21 Urine Culture - Final, Complete Mixed Bacterial Aleta 08/03/21 Blood Culture - Preliminary, Resulted No growth 08/03/21 Gram Stain - Final, Complete 08/03/21 Wound Culture - Final, Complete Gram Negative Richard Corynebacterium species See Comments Laboratory Tests 08/09/21 05:30 A/P: Assessment: Sepsis due to wet gangrenous wounds on feet - Amputation of bilateral 1st, 2nd and 3rd toes, left partial amputation of the 2nd metatarsal head and bilateral foot block on 08/05/21 PAD - Peripheral angio on 08-07-21: complete occlusion of the left superficial femo ral (entire length, beginning at the ostium) and popliteal arteries with reconstitution in the calf (posterior tibial); this is not amenable to intervention or surgery. No significant PAD on the R DVT - Recurrent bilateral DVT Tobacco abuse - cessation advised Plan: * Advised smoking cessation * Continue medical management for PAD * Monitor labs from time to time YENY SKELTON MD FACP FAC CCDS Aug 09, 2021 09:18
[2021-08-09] MEDS: AMOX/CLAV 600 MG/5 ML (AUGMENTIN) 75 ML BTL PO SCH (10:30)
--- NOTE | 2021-08-09 13:26 | Discharge Summary ---
Discharge Summary Hospital Course Was the Problem List Reviewed?: Yes Problems/Dx: (1) Gangrene of both feet Status: Acute (2) PAD (peripheral artery disease) Status: Acute (3) Acute deep vein thrombosis (DVT) of both lower extremities Status: Acute Hospital Course Date of Admission: Aug 03, 2021 at 18:19 Admission Diagnosis : Sepsis due to gangrenous wounds of feet Family Physician/Provider: No,Local Physician Date of Discharge: 08/09/21 Discharge Diagnosis: Sepsis due to gangrenous wounds of feet Hospital Course: Alex Ma is a 41 year old male who presented with sepsis due to bilateral gangrenous foot wounds. Surgery was consulted and he underwent bilateral partial foot amputations with removal of bilateral 1-3 digits with partial amputation of the left metatarsal head. He was treated with IV antibiotics and then transitioned to oral Augmentin after amputation and culture results returned. His course was complicated by PAD and he underwent an angiogram with cardiology which revealed total occlusions with collaterals present not amenable to intervention. He was also found to have bilateral DVTs. He has a history of previous DVT. He was started on Xarelto. Due to his acute debility following his surgery, he was evaluated and accepted for inpatient rehabilitation. Labs and Pending Lab Test: Laboratory Tests 08/09/21 05:30: White Blood Count 4.7, Red Blood Count 3.01L, Hemoglobin 12.1L, Hematocrit 35L, Mean Corpuscular Volume 116H, Mean Corpuscular Hemoglobin 40H, Mean Corpuscular Hemoglobin Concent 35, Red Cell Distribution Width 13.6, Platelet Count 156, Mean Platelet Volume 10.2, Immature Granulocyte % (Auto) 0, Neutrophils (%) (Auto) 53, Lymphocytes (%) (Auto) 34, Monocytes (%) (Auto) 7, Eosinophils (%) (Auto) 6, Basophils (%) (Auto) 1, Neutrophils # (Auto) 2.5, Lymphocytes # (Auto) 1.6, Monocytes # (Auto) 0.3, Eosinophils # (Auto) 0.3, Basophils # (Auto) 0.0, Immature Granulocyte # (Auto) 0.0, Sodium Level 136, Potassium Level 3.7, Chloride Level 105, Carbon Dioxide Level 20L, Anion Gap 11, Blood Urea Nitrogen 3L, Creatinine 0.65, Estimat Glomerular Filtration Rate 135, BUN/Creatinine Ratio 5, Glucose Level 83, Calcium Level 8.8 Microbiology 08/07/21 MRSA Screen - Final, Complete MRSA not isolated 08/03/21 Urine Culture - Final, Complete Mixed Bacterial Aleta 08/03/21 Blood Culture - Preliminary, Resulted No growth 08/03/21 Gram Stain - Final, Complete 08/03/21 Wound Culture - Final, Complete Gram Negative Richard Corynebacterium species See Comments Home Meds Active Reported Samantha-[place] Plus Cold Tab Eff (Chlorphenir/Phenyleph/Aspirin) 1 Each Tablet.eff 1 Each PO Q4H PRN MDD 8 DISSOLVES IN 4OZ OF WATER Tylenol Extra Strength (Acetaminophen) 500 Mg Tablet 1,000 Mg PO Q8H PRN Assessment/Pt Instructions Patient transferred to inpatient rehab for ongoing therapy. Discharge Planning: <30 minutes discharge planning Discharge Instructions Discharge Diet: No Restrictions Activity as Tolerated: Yes Consultations Surgery, cardiology Discharge Physical Examination Vital Signs Vital Signs Date Time Temp Pulse Resp B/P (MAP) Pulse Ox O2 Delivery O2 Flow Rate FiO2 08/09/21 09:37 Room Air 08/09/21 08:00 36.6 76 18 134/88 (103) 99 08/05/21 16:40 10 General Appearance: No Apparent Distress, WD/WN Respiratory: Lungs Clear, Normal Breath Sounds, No Respiratory Distress Cardiovascular: Regular Rate, Rhythm, No Edema, No Murmur Gastrointestinal: Normal Bowel Sounds, Non Tender, Soft Extremity: Other (Bilateral foot amputations with dressings in place, pedal edema) Skin: Normal Color, Warm/Dry Neurologic/Psychiatric: Alert, Oriented x3 Allergies: Coded Allergies: No Known Drug Allergies (Unverified , 08/04/21) He denies allergies to drugs and food, says he has seasonal allergies Discharge Summary Date of Admission Aug 03, 2021 at 18:19 Date of Discharge Aug 09, 2021 at 10:30 Discharge Date: Aug 09, 2021 Discharge Time: 10:30 Admission Diagnosis Sepsis due to gangrenous wounds on feet Consults/Procedures Consulations Surgery, Cardiology Procedures Foot amputations, angiogram Discharge Diagnosis Sepsis due to gangrenous wounds on feet PAD DVT (1) Gangrene of both feet Status: Acute (2) PAD (peripheral artery disease) Status: Acute (3) Acute deep vein thrombosis (DVT) of both lower extremities Status: Acute RAMIN FLORES MD Aug 09, 2021 13:10
[2021-08-10] MEDS ORDERED: AMOX600S4 PO (10:59)
[2021-08-10] MEDS ORDERED: RIVA20TA2 PO (10:59)
[2021-08-10] MEDS ORDERED: ACHD5005 PO (10:59)
[2021-08-10] MEDS ORDERED: RIVA15TA2 PO (10:59)
[2021-08-14] MEDS ORDERED: APIXABAN 5 MG (ELIQUIS) TABLET PO SCH (18:00)
[2021-08-29] MEDS ORDERED: RIVAROXABAN 20 MG TABLET (XARELTO) PO SCH (17:00)
== END 2021-08-09 10:30 | DRG 854 ==
LOC: EDUNIT# 16:35 → ER 16:37 → 4TH 18:19 → CSD 08-07 12:16 → 4TH 08-07 14:30
PROVIDERS: ADMIT Family Medicine; ATTEND Internal Medicine
PROC: 0Y6Q0Z0 Detachment at Left 1st Toe, Complete, Open Approach (ICD-10-PCS; 2021-08-05)
PROC: 0Y6T0Z0 Detachment at Right 3rd Toe, Complete, Open Approach (ICD-10-PCS; 2021-08-05)
PROC: 0Y6U0Z0 Detachment at Left 3rd Toe, Complete, Open Approach (ICD-10-PCS; 2021-08-05)
PROC: 0Y6R0Z0 Detachment at Right 2nd Toe, Complete, Open Approach (ICD-10-PCS; 2021-08-05)
PROC: 0Y6P0Z0 Detachment at Right 1st Toe, Complete, Open Approach (ICD-10-PCS; 2021-08-05)
PROC: 0Y6N0ZB Detachment at Left Foot, Partial 2nd Ray, Open Approach (ICD-10-PCS; principal; 2021-08-05 14:51)
PROC: B410YZZ Fluoroscopy of Abdominal Aorta using Other Contrast (ICD-10-PCS; 2021-08-07)
PROC: B41GYZZ Fluoroscopy of Left Lower Extremity Arteries using Other Contrast (ICD-10-PCS; 2021-08-07)
PROC: B41FYZZ Fluoroscopy of Right Lower Extremity Arteries using Other Contrast (ICD-10-PCS; 2021-08-07)
DX: A41.9 Sepsis, unspecified organism (principal); I82.413 Acute embolism and thrombosis of femoral vein, bilateral; I82.433 Acute embolism and thrombosis of popliteal vein, bilateral; I82.4Z1 Acute embolism and thrombosis of unspecified deep veins of right distal lower extremity; I70.268 Atherosclerosis of native arteries of extremities with gangrene, other extremity; M86.8X7 Other osteomyelitis, ankle and foot; I70.92 Chronic total occlusion of artery of the extremities; B35.1 Tinea unguium; F17.210 Nicotine dependence, cigarettes, uncomplicated; F10.10 Alcohol abuse, uncomplicated; D75.89 Other specified diseases of blood and blood-forming organs; E80.6 Other disorders of bilirubin metabolism; L40.9 Psoriasis, unspecified; Z20.822 Contact with and (suspected) exposure to COVID-19
CPT/HCPCS: 36415; 71045; 75625; 75716; 80048; 80053; 80202; 81000; 83605; 85025; 85027; 85379; 85610; 85730; 87040; 87070; 87081; 87088; 87205; 87636; 93925; 93970; 94664; 96372; 96374

== ENCOUNTER 2021-08-09 10:18 | Inpatient (IN) | payer SELFPAY ==
[~2021-08-09] VITALS: Ht 182.9 cm; Wt 87.5 kg
[~2021-08-09 10:18] MED LIST: ACET-2267 PO; CHLO1TAB74 PO
[2021-08-09 10:30] VITALS: BP 122/63
--- NOTE | 2021-08-09 11:07 | Occupational Therapy Eval ---
OT Evaluation-General/PLF Medical Diagnosis Admission Date 2020 Medical Diagnosis: debility Onset Date: Aug 05, 2021 Therapy Diagnosis Therapy Diagnosis: decreased ADL status Weight Bear Status Weight Bearing Restriction: Weight Bearing/Tolerated Location Restriction: CATLHEEN FEET Referral Physician: Art Pitt Reason: Evaluation/Treatment Medical History Additional Medical History DVT, bilateral foot pain Current History bilateral toe amputations, digits 1-3 Social History Home: Single Level Current Living Status: Alone Entry Into Home: Stairs With Railing Steps Into Home: 6 ADL-Prior Level of Function SCALE: Activities may be completed with or without assistive devices. 5-Sitynorgis-sygasex completes the activity by him/herself with no assistance from a helper. 5-Set-up or Clean-up Assistance-helper sets up or cleans up; patient completes activity. Nelson assists only prior to or following the activity. 4-Supervision or Touching Assistance-helper provides verbal cues and/or touching/steadying and/or contact guard assistance as patient completes activity. Assistance may be provided throughout the activity or intermittently. 3-Partial/Moderate Assistance-helper does LESS THAN HALF the effort. Nelson lifts, holds or supports trunk or limbs, but provides less than half the effort. 2-Substantial/Maximal Assistance-helper does MORE THAN HALF the effort. Nelson lifts or holds trunk or limbs and provides more than half the effort. 5-Xpgdfjevi-vyqxsf does ALL the effort. Patient does none of the effort to complete the activity. Or, the assistance of 2 or more helpers is required for the patient to complete the activity. If activity was not attempted, code reason: 7-Patient Refused. 9-Not Applicable-not attempted and the patient did not perform the activity before the current illness, exacerbation or injury. 10-Not Attempted due to Environmental Limitations-(lack of equipment, weather restraints, etc.). 88-Not Attempted due to Medical Conditions or Safety Concerns. ADL PLOF Comments Pt reports IND with ADLs at PLOF, occasionally uses AD for functional mobility. His assists with IADLS due to pain in LEs. He has a tub/shower, no SC but he is looking into buying a bath bench. Self Care: Independent Functional Cognition: Independent DME/Equipment: Tub/Shower OT Current Status Subjective Pt agreeable to OT evaluation. Mental Status/Objective Patient Orientation: Person, Place, Situation Current Dentures/Partials: No Upper Extremity ROM WFL, BUE shoulder flexion to ~180 degrees Upper Extremity Coordination WFL Upper Extremity Sensation WFL Upper Extremity Strength grossly 4+/5 ADL-Treatment Eating (QC): 6 Oral Hygiene (QC): 6 Shower/Bathe Self (QC): 7 Upper Body Dressing (QC): 7 Lower Body Dressing (QC): 7 On/Off Footwear (QC): 7 Toileting Hygiene (QC): 7 Other Treatments Pt in w/c agreeable to OT evaluation. OT educated pt on purpose and benefit of OT, he verbalized understanding. Pt provided information about PLOF and home set up, and participated in UE screen. Pt completed oral care seated at sink, IND. SUBRAMANIAN present to take over tx, all needs met with pt. Education OT Patient Education: Correct positioning, Modified ADL techniques, Progress toward Goal/Update tx plan, Purpose of tx/functional activities, Rehab process Teaching Recipient: Patient Teaching Methods: Discussion Response to Teaching: Verbalize Understanding OT Short Term Goals Short Term Goals Time Frame: Aug 22, 2021 Upper body dressin Lower body dressin Putting on/taking off footwear: 3 OT Half-Way Goals Half-Way Goals Time Frame: Aug 31, 2021 Eating (QC): 6 Oral Hygiene (QC): 6 Toileting Hygiene (QC): 6 Shower/Bathe Self (QC): 6 Upper Body Dressing (QC): 6 Lower Body Dressing (QC): 6 On/Off Footwear (QC): 6 Additional Goals: 1-Demonstrate ADL Tasks, 2-Verbalize Understanding, 3- ImproveStrength/Bronson 1=Demonstrate adherence to instructed precautions during ADL tasks. 2=Patient will verbalize/demonstrate understanding of assistive devices/modifications for ADL. 3=Patient will improve strength/tolerance for activity to enable patient to perform ADL's. OT Education/Plan Problem List/Assessment Assessment: Decreased Activ Tolerance, Impaired Funct Balance, Impaired I ADL's, Impaired Self-Care Skills Discharge Recommendations Plan/Recommendations: Continue POC Treatment Plan/Plan of Care Patient would benefit from OT for education, treatment and training to promote independence in ADL's, mobility, safety and/or upper extremity function for ADL's. Plan of Care: ADL Retraining, Functional Mobility, Group Exercise/Act as Ind, UE Funct Exercise/Act Treatment Duration: Aug 31, 2021 Frequency: At least 5 of 7 days/Wk (IRF) Estimated Hrs Per Day: 1.5 hours per day Agreement: Yes Rehab Potential: Fair Time/GCodes Start Time: 11:40 Stop Time: 11:50 Total Time Billed (hr/min): 10 Billed Treatment Time 1, JAMESON ELLIS OT Aug 09, 2021 11:07
[2021-08-09] MEDS ORDERED: MELATONIN 3 MG TABLET PO PRN ×2 (11:30)
[2021-08-09] MEDS ORDERED: ALPRAZolam 0.25 MG (XANAX) TAB PO PRN (11:30)
[2021-08-09] MEDS ORDERED: BENZONATATE 100 MG (TESSALON) CAPSULE PO PRN (11:30)
[2021-08-09] MEDS ORDERED: LOPERAMIDE 2 MG (IMODIUM) TABLET PO PRN (11:30)
[2021-08-09] MEDS ORDERED: ONDANSETRON 4 MG (ZOFRAN) ORAL DISSOLVE TAB PO PRN ×2 (11:30)
[2021-08-09] MEDS ORDERED: DOCUSATE SODIUM 100 MG (COLACE) CAP PO PRN (11:30)
[2021-08-09] MEDS ORDERED: PATIENT MAY USE OWN MEDS, ALL PO SCH (11:30)
[2021-08-09] MEDS ORDERED: guaiFENesin/CODEINE (ROBITUSSIN AC) 10ML UDC PO PRN (11:30)
[2021-08-09] MEDS ORDERED: FLEET ENEMA ADULT 1 EA BTL PR PRN (11:30)
[2021-08-09] MEDS ORDERED: CALCIUM CARBONATE 500 MG (TUMS) TAB.CHEW PO PRN (11:30)
[2021-08-09] MEDS ORDERED: ANTACID SUSP 30 ML UDC (MYLANTA) PO PRN (11:30)
[2021-08-09] MEDS ORDERED: diphenhydrAMINE 25 MG TAB (BENADRYL) PO PRN (11:30)
[2021-08-09] MEDS ORDERED: MILK OF MAGNESIA 400 MG/5 ML 30 ML UDC PO PRN (11:30)
[2021-08-09] MEDS ORDERED: LACTULOSE SYRUP 10GM/15ML (ENULOSE) 30ML UDC PO PRN (11:30)
[2021-08-09] MEDS ORDERED: BISACODYL 10 MG SUPP (DULCOLAX) PR PRN (11:30)
--- NOTE | 2021-08-09 11:43 | PM&R Post Admission Assessment ---
PM&R HP Date of Visit: Aug 09, 2021 Time of Visit: 11:45 History of Present Illness Chief complaint: Debility from bilateral toe amputations from gangrene History of present illness: This is a 41-year-old white male who has a history of a DVT and peripheral artery disease who continues to smoke who presented to the ER with bilateral gangrene of his feet with sepsis. He underwent bilateral toe amputations by Dr. Fernandez. He is currently doing well but still with pain. PT and OT will focus on regaining function with the use of assistive devices. Smoking cessation counseled. H&P from NABILA PEACOCK 08/09/21 1316: CC: Debility following bilat foot gangrene and amputations (1st, 2nd, 3rd toes); partial 2nd metatarsal head amputation HPI: 41 yo male with a hx of DVT and PAD presents to the rehab floor following an inpatient stay for sepsis and bilat gangrene of the feet that led to bilat amputations (1st, 2nd, 3rd toes); partial 2nd metatarsal head amputation. Pt is on Xarelto for DVT prophylaxis, as well as amoxicillin for infection treatment. Pt, his , and son live in [place] and need to move out of their current home by the . PMH: 2017 DVT following fall, clot extended "from his groin to toe," PAD, hx staph infxn PSH: Hernia repair (5yo), Tooth removal (2004) ALL: NKDA; Fentanyl doesn't work well (morphine works better) Meds: Item Value Date Time Rivaroxaban 20 mg 08/29/21 1700 (Xarelto Tablet) DAILY@1700/PO Senna 1 ea 08/09/21 2100 (Senokot S BID/PO Tablet) Polyethylene 17 gm 08/09/21 2100 Glycol BID/PO (Miralax 17 Gm Packet) Docusate Sodium 100 mg 08/09/21 2100 (Colace Capsule) BID/PO Amoxicillin/ DOSE: 876MG = 7.3ML 08/09/21 2100 Clavulanate BID/PO Potassium (Augmentin 600 Mg/5 ml Oral Suspension) Rivaroxaban 15 mg 08/09/21 1900 (Xarelto Tablet) BID@0700,1900/PO Acetaminophen 650 mg 08/09/21 1145 (Tylenol Tablet) Q4H PRN/PO Loperamide HCl 2 mg 08/09/21 1130 (Imodium Tablet) PRN PRN/PO Guaifenesin/ 10 ml 08/09/21 1130 Codeine Phosphate Q4H PRN/PO (Robitussin Ac (Codeine) Syrup) Sodium 1 ea 08/09/21 1130 Biphosphate/ BID PRN/LA Sodium Phosphate (Fleet Enema Adult) Lactulose 10 gm 08/09/21 1130 (Enulose Oral BID PRN/PO Solution) Bisacodyl 10 mg 08/09/21 1130 (Dulcolax DAILY PRN/LA Suppository) Docusate Sodium 100 mg 08/09/21 1130 (Colace Capsule) BID PRN/PO Diphenhydramine 25 mg 08/09/21 1130 HCl Q6H PRN/PO (Benadryl Tablet) Calcium Carbonate 500 mg 08/09/21 1130 (Antacid TID PRN/PO Chewable Tablet) Alprazolam 0.25 mg 08/09/21 1130 (Xanax Tablet) Q8H PRN/PO Benzonatate 100 mg 08/09/21 1130 (Tessalon Perles) TID PRN/PO Miscellaneous Patient may take home ... 08/09/21 113 (Patient May Use UD/PO Own Meds, All) Ondansetron HCl 4 mg 08/09/21 1130 (Zofran Oral Q6H PRN/PO Dissolve Tablet) Al Hydrox/Mg 30 ml 08/09/21 1130 Hydrox/Simethicone Q4H PRN/PO (Mylanta Suspension) Magnesium 30 ml 08/09/21 1130 Hydroxide DAILY PRN/PO (Mom Oral Suspension) Melatonin 3 mg 08/09/21 1130 (Melatonin HS PRN/PO Tablet) Acetaminophen/ 1-2 tabs q6 prn for pain 08/09/21 1130 Hydrocodone Bitart Q6HR PRN/PO (Lortab 5 Mg Tablet) SH: EtOh- 3 8oz mixed drinks after work each day; 1 pack ciagarettes/day, no recreational drug use, lives with and son in [place], moving to a new house in [place] by the , plans to move to [place] eventually FH: mom healthy; unknown father; 3 healthy sons and 1 daughter, no siblings ROS: no chest pain, no palpitations, no SOB, no feeling feverish Exam: legs swollen, R especially discolored, both feet wrapped, alert/oriented x3, positive attitude, heart RRR, lungs CTAB Images: Venous Doppler Study Impression: 1. Occlusive deep vein thrombus in the right superficial femoral, popliteal and calf veins of the right lower extremity. 2. Partially occlusive thrombus involving the left superficial femoral and popliteal veins. Labs: RBC 3.01 Hgb 12.1 MCV 116 Co2 20 BUN 3 Bili 1.4 APTT 46 Assess: Debility following gangrenous bilat toe amputations Pain following amputations Macrocytic anemia Hyperbilirubinemia PAD Plan: PT/OT 1.5 hr/day, 5 days/week Monitor for continued improvement Continue Xarelto for DVT prophylaxis Continue Amoxicillin for infection trt Note pt cannot take pills, prefers liquid or crushed medications Consider another coag panel Alcohol/tobacco sessation education Consider social science professor consult in regards to housing changes ATIF LIND DO 08/09/212036: Past Rylymyp-Hsfvki-Hidguu Hx Past Med/Social Hx: Reviewed Nursing Past Med/Soc Hx, Reviewed and Corrections made Patient Social History Marrital Status: Employed/Student: unemployed Alcohol Use: Occasionally Uses Smoking Status: Current Everyday Smoker Seasonal Allergies Seasonal Allergies: Yes Past Medical History Surgeries: Abdominal, Orthopedic (Toe amputations) Cardiac: Deep Vein Thrombosis Skin/Integumentary: Psoriasis Family History No Pertinent Family Hx, Other Conditions/Hx Self Care: Independent Functional Cognition: Independent Eatin Oral Hygiene: 6 Shower/Bathe Self: 7 Upper Body Dressin Lower Body Dressin On/Off Footwear: 7 Toileting Hygiene: 7 PM&R Allergy/Meds/Data Review Allergies Coded Allergies: No Known Drug Allergies (Unverified , 08/04/21) He denies allergies to drugs and food, says he has seasonal allergies Home Medications Scheduled PRN Acetaminophen (Tylenol Extra Strength), 1,000 MG PO Q8H PRN for PAIN-MILD (1-4), (Reported) Chlorphenir/Phenyleph/Aspirin (Samantha-[place] Plus Cold Tab Eff), 1 EACH PO Q4H PRN for PAIN-BREAKTHROUGH, (Reported) Current Medications Current Medications Reviewed Review of Systems Constitutional: see HPI, malaise, weakness EENTM: no symptoms reported Respiratory: no symptoms reported Cardiovascular: no symptoms reported Gastrointestinal: no symptoms reported Genitourinary: no symptoms reported Musculoskeletal: joint pain Skin: no symptoms reported Psychiatric/Neurological: No Symptoms Reported All Other Systems Reviewed Negative Unless Noted: Yes Physical Exam Physical Exam Vital Signs Capillary Refill : Height, Weight, BMI Height: '" Weight: lbs. oz. kg; 25.49 BMI Method: General Appearance: No Apparent Distress, WD/WN, Chronically ill Eyes: Bilateral Eye Normal Inspection, Bilateral Eye PERRL HEENT: PERRL/EOMI, Normal ENT Inspection, Pharynx Normal Neck: Full Range of Motion, Normal Inspection, Non Tender, Supple, Carotid Bruit Respiratory: Chest Non Tender, Lungs Clear, Normal Breath Sounds, No Accessory Muscle Use, No Respiratory Distress Cardiovascular: Regular Rate, Rhythm, No Edema, No Gallop, No JVD, No Murmur, Normal Peripheral Pulses Gastrointestinal: Normal Bowel Sounds, No Organomegaly, No Pulsatile Mass, Non Tender, Soft Back: Normal Inspection, No CVA Tenderness, No Vertebral Tenderness Extremity: Normal Capillary Refill, Normal Inspection, Normal Range of Motion, Non Tender, No Calf Tenderness, No Pedal Edema Neurologic/Psychiatric: Alert, Oriented x3, No Motor/Sensory Deficits, Normal 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/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, 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, Abnormal Gait, Motor Weakness (Lower extremities) Skin: Normal Color, Warm/Dry Lymphatic: No Adenopathy PM&R Medical Assessment & Plan REHAB/MEDICAL ASSESSMENT AND PLAN: REHAB IMPAIRMENT GROUP: Bilateral toe amputations with complex wounds ETIOLOGIC DIAGNOSIS: Bilateral toe amputations with complex wounds The comorbidities that impact the patients function and/or functional outcome by: Smoking, severe peripheral vascular disease at age 41 REHAB PLAN: The patient is being admitted to our comprehensive inpatient rehabilitation facility and can tolerate the intensity of service consisting of at least: 180 minutes of therapy a day, 5 out of 7 days a week Rehab treatment will consist of: PT and OT will focus on regaining function with the use of assistive devices in order to regain independence with ADLs and return back to independent living with The patient/family has a good understanding of our discharge process and will benefit from an interdisciplinary inpatient rehabilitation program. The patient has potential to make improvement and is in need of at least two of the following multidisciplinary therapies including but not limited to physical, occupational, speech, and prosthetics and orthotics. Additionally the patient will need services from respiratory, nutritional services, wound care, psychology, etc. (Customize this to each patient). Given the patients complex condition and risk of further medical complications, rehabilitation services cannot be safely or effectively provided at a lower level of care such as a [facility] facility. BARRIERS TO DISCHARGE: Bilateral time rotations ESTIMATED LOS: 10 days DISPOSITION: Home RELEVANT CHANGES SINCE PREADMISSION SCREENING: I have compared the patients medical and functional status at the time of the preadmission screening and there are: No changes PROGNOSIS: Fair REHABILITATION GOALS: 1. PT and OT will focus on regaining function with the use of assistive devices in order to regain independence with ADLs and return back to independent living with All the above goals were reviewed with the patient and he/she is in agreement. By signing this document, I acknowledge that I have personally performed a full physical examination on this patient within 24 hours of admission to this inpatient rehabilitation facility and have determined the patient to be able to tolerate the above course of treatment at an intensive level for a reasonable period of time. I will be completing a detailed individualized Plan of Care for this patient by day #4 of the patients stay based upon the Preadmission Screen, the Post-Admission Evaluation, and the therapy evaluations. Admission Dx/Comorbidities: (1) Acute deep vein thrombosis (DVT) of both lower extremities Status: Acute ICD Codes: I82.403 - Acute embolism and thrombosis of unspecified deep veins of lower extremity, bilateral (2) History of DVT (deep vein thrombosis) ICD Codes: Z86.718 - Personal history of other venous thrombosis and embolism (3) PAD (peripheral artery disease) Status: Acute ICD Codes: I73.9 - Peripheral vascular disease, unspecified (4) Gangrene of both feet Status: Acute ICD Codes: I96 - Gangrene, not elsewhere classified (5) Tobacco abuse Status: Chronic ICD Codes: Z72.0 - Tobacco use (6) Alcohol abuse Status: Chronic ICD Codes: F10.10 - Alcohol abuse, uncomplicated Assessment/Plan Assessment and Plan Assess & Plan/Chief Complaint Assessment: Bilateral multiple toe amputations due to gangrene History of DVT Acute DVT bilaterally Smoker Plan: Supportive care Wound care Inpatient rehab protocol ATIF LIND DO Aug 09, 2021 11:43
[2021-08-09] MEDS ORDERED: ACETAMINOPHEN 325 MG TABLET PO PRN (11:45)
--- NOTE | 2021-08-09 11:45 | Physical Therapy Evaluation ---
PT Evaluation-General Medical Diagnosis Admission Date Aug 09, 2021 at 10:30 Medical Diagnosis: debility Onset Date: Aug 05, 2021 Therapy Diagnosis Therapy Diagnosis: Gait deficit, strength deficit Precautions Precautions/Isolations: Fall Prevention Weight Bear Status Right Lower Extremity: Right Weight Bearing/Tolerated Left Lower Extremity: Left Weight Bearing/Tolerated Referral Physician: Art Reason for Referral: Evaluation/Treatment Medical History Reviewed History: Yes Social History Home: Single Level Current Living Status: Spouse Entry Into Home: Stairs With Railing PT Steps Into Home: 6 Prior Prior Level of Function SCALE: Activities may be completed with or without assistive devices. 6-Xyjeanidbe-efblgaf completes the activity by him/herself with no assistance from a helper. 5-Set-up or Clean-up Assistance-helper sets up or cleans up; patient completes activity. [place] assists only prior to or following the activity. 4-Supervision or Touching Assistance-helper provides verbal cues and/or touching/steadying and/or contact guard assistance as patient completes activity. Assistance may be provided throughout the activity or intermittently. 3-Partial/Moderate Assistance-helper does LESS THAN HALF the effort. [place] lifts, holds or supports trunk or limbs, but provides less than half the effort. 2-Substantial/Maximal Assistance-helper does MORE THAN HALF the effort. [place] lifts or holds trunk or limbs and provides more than half the effort. 0-Vvaioabpz-xrlnad does ALL the effort. Patient does none of the effort to complete the activity. Or, the assistance of 2 or more helpers is required for the patient to complete the activity. If activity was not attempted, code reason: 7-Patient Refused. 9-Not Applicable-not attempted and the patient did not perform the activity before the current illness, exacerbation or injury. 10-Not Attempted due to Environmental Limitations-(lack of equipment, weather restraints, etc.). 88-Not Attempted due to Medical Conditions or Safety Concerns. Bed Mobility: 6 Transfers (B,C,W/C): 6 Gait: 6 Indoor Mobility (Ambulation): Independent Stairs: Independent Prior Devices Use: None Will need FWW, Slideboard and Wheelchair for D/C home PT Evaluation-Current Subjective Patient sitting upright in bed upon PT arrival, agreeable to treatment. Patient rates pain currently at 4/10. Objective Patient Orientation: Person, Place, Time, Situation ROM/Strength ROM Lower Extremities Patients bilateral ankles limited to ~ 20 degrees from neutral into plantarflexion and bilateral Knees limited to 90 degrees of flexion due to edema in bilateral LEs Strength Lower Extremities Grossly 3+/5 in bilateral Hips and knees; ankle PF 3/5 ankle DF 2+/5 bilaterally Neuromuscular (Tone, Coordination, Reflexes) Coordination limited bilaterally during evaluation due to edema and pain. Further assessment necessary. Sensory Vision: Functional Hearing: Functional Sensation Right Lower Extremit: Intact Sensation Left Lower Extremity: Intact Transfers Roll Left & Right (QC): 4 Sit to Lying (QC): 4 Lying to Sitting/Side of Bed(Q: 4 Sit to Stand (QC): 88 Chair/Ook-ln-Vjomx Xfer(QC): 3 Toilet Transfer (QC): 3 Car Transfer (QC): 3 Gait Does the Patient Walk?: No and Walking Goal IS indicated Mode of Locomotion: Both Anticipated Mode of Locomotion: Both Walk 10 feet (QC): 88 Walk 50 ft with 2 Turns(QC): 88 Walk 150 ft (QC): 88 Walking 10ft/uneven surface-QC: 88 Wheelchair Training Does the Pt Use a Wheelchair?: Yes Distance: 150 Wheel 50 ft with 2 turns (QC): 4 Wheel 150 ft (QC): 4 Type of Wheelchair: Manual Frequent verbal cues for process and turning, however patient able to tolerate physical aspect well. Stairs 1 Step (curb) (QC): 88 4 Steps (QC): 88 12 Steps (QC): 88 Balance Sitting Static: Good Sitting Dynamic: Good Standing Static: Poor Standing Dynamic: Poor Picking up an Object (QC): 88 Assessment/Needs Patient evaluation completed by PT. OT then completed their evaluation. Remainder of treatment was performed as Co-treatment between PT and OT due to the acuteness and significant needs of the patient. Patient tolerated treatment fair, however notes increase in bilateral foot pain, nurse notified. Patient performs all bed mobility with SBA/CGA for safety. He attempts to transfer to the w/c without slideboard and is unable to put weight through his LEs. Patient was educated on the benefits of slideboard for safe transfer and given demonstration on appropriate performance of use of the slideboard. Rehab Potential: Fair Equipment Needs FWW, Slideboard, W/C PT Short Term Goals Short Term Goals Time Frame: Aug 29, 2021 Roll Left & Right: 5 Sit to lyin Lying to sitting on side of be: 5 Sit to stand: 3 Chair/qeh-zc-etxnh transfer: 4 Toilet transfer: 4 Car transfer: 4 Does pt use a wc or scooter: Yes Wheel 50ft w/2 turns: 5 Wheel 150 feet: 5 Type: Manual PT Pellet Machine Operator Goals Pellet Machine Operator Goals PT Pellet Machine Operator Goals Time Frame: Sep 19, 2021 Roll Left & Right (QC): 6 Sit to Lying (QC): 6 Lying-Sitting on Side/Bed(QC): 6 Sit to Stand (QC): 5 Chair/Yde-nn-Sxqrl Xfer(QC): 5 Toilet Transfer (QC): 5 Car Transfer (QC): 5 Does the Patient Walk: No and Walking Goal IS indicated Walk 10 feet (QC): 3 Walk 50ft with 2 Turns (QC): 3 Walk 150 ft (QC): 88 Walking 10ft on Uneven Surface: 88 1 Step (curb) (QC): 3 4 Steps (QC): 3 12 Steps (QC): 88 Picking up an Object (QC): 4 Does the Pt use WC or Scooter?: Yes Wheel 50 feet with 2 turns (QC: 6 Type: Manual Wheel 150 feet: 6 Type: Manual PT Plan Problem List Problem List: Activity Tolerance, Functional Strength, Safety, Balance, Gait, Transfer, Bed Mobility, ROM Treatment/Plan Treatment Plan: Continue Plan of Care Treatment Plan: Bed Mobility, Education, Functional Activity Bronson, Functional Strength, Group Therapy, Gait, Safety, Therapeutic Exercise, Transfers Treatment Duration: Oct 26, 2021 Frequency: At least 5 of 7 days/Wk (IRF) Estimated Hrs Per Day: 1.5 hours per day Patient and/or Family Agrees t: Yes Safety Risks/Education Patient Education: Transfer Techniques, Reviewed Precautions, Safety Issues Teaching Recipient: Patient Teaching Methods: Demonstration, Discussion Response to Teaching: Verbalize Understanding, Reinforcement Needed Discharge Recommendations Target Placement Home with Assistance from as needed. Patient will most likely only be able to ambulate short distances with FWW and possibly only be able to stand to perform transfers. Time/GCodes Time In: 1030 Time Out: 1140 Total Billed Treatment Time: 70 Total Billed Treatment Visit, Kyle Yip, Ex (2), FA (2) KEITH PARKINSON PT Aug 09, 2021 11:45
--- NOTE | 2021-08-09 11:55 | Occupational Ther Daily Note ---
OT Current Status-Daily Note Subjective Pt alert, sitting in w/c when therapy entered. Pt agreed to therapy. Pain 02/03, nursing notified. Mental Status/Objective Patient Orientation: Person, Place, Time, Situation ADL-Treatment After set up, pt able to complete upper body dressing by self. Pt then required assist to thread feet into pant legs due to dressings on feet and pain. Pt then hiked pants over hips while sitting in w/c. After set up, pt completed basic hygiene of cleansing fingernails while seated in w/c at room. After therapy pt, sitting in w/c. All needs met and call light in reach. Therapy Code Descriptions/Definitions Functional [place] Measure: 0=Not Assessed/NA 4=Minimal Assistance 1=Total Assistance 5=Supervision or Setup 2=Maximal Assistance 6=Modified [place] 3=Moderate Assistance 7=Complete IndependenceSCALE: Activities may be completed with or without assistive devices. 3-Nbbrjosigi-biuqxut completes the activity by him/herself with no assistance from a helper. 5-Set-up or Clean-up Assistance-helper sets up or cleans up; patient completes activity. [place] assists only prior to or following the activity. 4-Supervision or Touching Assistance-helper provides verbal cues and/or touching/steadying and/or contact guard assistance as patient completes activity. Assistance may be provided throughout the activity or intermittently. 3-Partial/Moderate Assistance-helper does LESS THAN HALF the effort. [place] lifts, holds or supports trunk or limbs, but provides less than half the effort. 2-Substantial/Maximal Assistance-helper does MORE THAN HALF the effort. [place] lifts or holds trunk or limbs and provides more than half the effort. 2-Owztdyghe-kmynbg does ALL the effort. Patient does none of the effort to complete the activity. Or, the assistance of 2 or more helpers is required for the patient to complete the activity. If activity was not attempted, code reason: 7-Patient Refused. 9-Not Applicable-not attempted and the patient did not perform the activity before the current illness, exacerbation or injury. 10-Not Attempted due to Environmental Limitations-(lack of equipment, weather restraints, etc.). 88-Not Attempted due to Medical Conditions or Safety Concerns. Upper Body Dressing (QC): 5 Lower Body Dressing (QC): 3 Other Treatment Co treat with PT ([id number]), 2 clinicians required for skilled instruction and care to increase functional mobility and decrease fall risk. PT focused on transfers, LB exercises. While OT focused on BUE placement during transfers and BUE strengthening Skilled instruction of sliding board transfer required. Pt transferred from w/c-bed and bed-w/c using sliding board. Pt required mod verbal cues and SBA for correct technique. Pt able to verbalize understanding of transfer and returned demonstration. Skilled instruction provided of BUE green theraband exercises. Pt completed x2 sets of 15 reps of green theraband exercises while seated in w/c to increase BUE strength for safe and functional transfers. Pt required resting break during exercise due to decrease activity tolerance and fatigue. Education OT Patient Education: Energy conservation, Exercise program, Home exercise program, Transfer techniques Teaching Recipient: Patient Teaching Methods: Demonstration, Handout, Discussion Response to Teaching: Verbalize Understanding, Return Demonstration OT Short Term Goals Short Term Goals Time Frame: Aug 22, 2021 Upper body dressin Lower body dressin Putting on/taking off footwear: 3 OT Health Information Assistant Goals Alf Goals Time Frame: Aug 31, 2021 Eating (QC): 6 Oral Hygiene (QC): 6 Toileting Hygiene (QC): 6 Shower/Bathe Self (QC): 6 Upper Body Dressing (QC): 6 Lower Body Dressing (QC): 6 On/Off Footwear (QC): 6 Additional Goals: 1-Demonstrate ADL Tasks, 2-Verbalize Understanding, 3- ImproveStrength/Bronson 1=Demonstrate adherence to instructed precautions during ADL tasks. 2=Patient will verbalize/demonstrate understanding of assistive devices/modifications for ADL. 3=Patient will improve strength/tolerance for activity to enable patient to perform ADL's. OT Education/Plan Problem List/Assessment Assessment: Decreased Activ Tolerance, Decreased UE Strength, Impaired Funct Balance Discharge Recommendations Plan/Recommendations: Continue POC Treatment Plan/Plan of Care Patient would benefit from OT for education, treatment and training to promote independence in ADL's, mobility, safety and/or upper extremity function for ADL's. Plan of Care: ADL Retraining, Functional Mobility, Group Exercise/Act as Ind, UE Funct Exercise/Act Treatment Duration: Aug 31, 2021 Frequency: At least 5 of 7 days/Wk (IRF) Estimated Hrs Per Day: 1.5 hours per day Agreement: Yes Rehab Potential: Fair Time/GCodes Start Time: 10:50 Stop Time: 11:40 Total Time Billed (hr/min): 50 Billed Treatment Time 1 visit- FA 1(10 mins), EX 2 (30mins), ADL 1(20mins) (60 mins) Co treat with PT [id number] Individual [id number](10 mins) KAROL GALDAMEZ Aug 09, 2021 11:55
--- NOTE | 2021-08-09 13:16 | Progress Note ---
AYUSHNABILA 08/09/21 1316: Progress Note CC: Debility following bilat foot gangrene and amputations (1st, 2nd, 3rd toes); partial 2nd metatarsal head amputation HPI: 41 yo male with a hx of DVT and PAD presents to the rehab floor following an inpatient stay for sepsis and bilat gangrene of the feet that led to bilat amputations (1st, 2nd, 3rd toes); partial 2nd metatarsal head amputation. Pt is on Xarelto for DVT prophylaxis, as well as amoxicillin for infection treatment. Pt, his , and son live in [place] and need to move out of their current home by the . PMH: 2018 DVT following fall, clot extended "from his groin to toe," PAD, hx staph infxn PSH: Hernia repair (5yo), Tooth removal (2004) ALL: NKDA; Fentanyl doesn't work well (morphine works better) Meds: Item Value Date Time Rivaroxaban 20 mg 08/29/21 1700 (Xarelto Tablet) DAILY@1700/PO Senna 1 ea 08/09/21 2100 (Senokot S BID/PO Tablet) Polyethylene 17 gm 08/09/21 2100 Glycol BID/PO (Miralax 17 Gm Packet) Docusate Sodium 100 mg 08/09/21 2100 (Colace Capsule) BID/PO Amoxicillin/ DOSE: 876MG = 7.3ML 08/09/21 2100 Clavulanate BID/PO Potassium (Augmentin 600 Mg/5 ml Oral Suspension) Rivaroxaban 15 mg 08/09/21 1900 (Xarelto Tablet) BID@0700,1900/PO Acetaminophen 650 mg 08/09/21 1145 (Tylenol Tablet) Q4H PRN/PO Loperamide HCl 2 mg 08/09/21 1130 (Imodium Tablet) PRN PRN/PO Guaifenesin/ 10 ml 08/09/21 1130 Codeine Phosphate Q4H PRN/PO (Robitussin Ac (Codeine) Syrup) Sodium 1 ea 08/09/21 1130 Biphosphate/ BID PRN/IA Sodium Phosphate (Fleet Enema Adult) Lactulose 10 gm 08/09/21 1130 (Enulose Oral BID PRN/PO Solution) Bisacodyl 10 mg 08/09/21 1130 (Dulcolax DAILY PRN/IA Suppository) Docusate Sodium 100 mg 08/09/21 1130 (Colace Capsule) BID PRN/PO Diphenhydramine 25 mg 08/09/21 1130 HCl Q6H PRN/PO (Benadryl Tablet) Calcium Carbonate 500 mg 08/09/21 1130 (Antacid TID PRN/PO Chewable Tablet) Alprazolam 0.25 mg 08/09/21 1130 (Xanax Tablet) Q8H PRN/PO Benzonatate 100 mg 08/09/21 1130 (Tessalon Perles) TID PRN/PO Miscellaneous Patient may take home ... 08/09/21 1130 (Patient May Use UD/PO Own Meds, All) Ondansetron HCl 4 mg 08/09/21 1130 (Zofran Oral Q6H PRN/PO Dissolve Tablet) Al Hydrox/Mg 30 ml 08/09/21 1130 Hydrox/Simethicone Q4H PRN/PO (Mylanta Suspension) Magnesium 30 ml 08/09/21 1130 Hydroxide DAILY PRN/PO (Mom Oral Suspension) Melatonin 3 mg 08/09/21 1130 (Melatonin HS PRN/PO Tablet) Acetaminophen/ 1-2 tabs q6 prn for pain 08/09/21 1130 Hydrocodone Bitart Q6HR PRN/PO (Lortab 5 Mg Tablet) SH: EtOh- 3 8oz mixed drinks after work each day; 1 pack ciagarettes/day, no recreational drug use, lives with and son in [place], moving to a new house in [place] by the , plans to move to [place] eventually FH: mom healthy; unknown father; 3 healthy sons and 1 daughter, no siblings ROS: no chest pain, no palpitations, no SOB, no feeling feverish Exam: legs swollen, R especially discolored, both feet wrapped, alert/oriented x3, positive attitude, heart RRR, lungs CTAB Images: Venous Doppler Study Impression: 1. Occlusive deep vein thrombus in the right superficial femoral, popliteal and calf veins of the right lower extremity. 2. Partially occlusive thrombus involving the left superficial femoral and popliteal veins. Labs: RBC 3.01 Hgb 12.1 MCV 116 Co2 20 BUN 3 Bili 1.4 APTT 46 Assess: Debility following gangrenous bilat toe amputations Pain following amputations Macrocytic anemia Hyperbilirubinemia PAD Plan: PT/OT 1.5 hr/day, 5 days/week Monitor for continued improvement Continue Xarelto for DVT prophylaxis Continue Amoxicillin for infection trt Note pt cannot take pills, prefers liquid or crushed medications Consider another coag panel Alcohol/tobacco sessation education Consider social media community manager consult in regards to housing changes MARYANNE LIDN DO 08/09/212036: Supervisory-Addendum Brief Verification & Attestation Participated in pt care: history, MDM, physical Personally performed: exam, history, MDM, supervision of care Care discussed with: Medical Student Procedures: n/a Results interpretation: Verified all documentation Verification and Attestation of Medical Student E/M Service A medical student performed and documented this service in my presence. I reviewed and verified all information documented by the medical student and made modifications to such information, when appropriate. I personally performed the physical exam and medical decision making. Maryanne Lind Aug 09, 2021,20:30 NABILA PEACOCK Aug 09, 2021 13:16 MARYANNE LIND DO Aug 09, 2021 20:37
--- NOTE | 2021-08-09 14:48 | Therapy Group Daily Note ---
Therapy Daily Group Note Patient Education Topic Other List Below (nutrition, exercise) Exercises LE Seated Exercise, UE Exercise Session Ratio (pt:therapist): 4:1 Goal of Session: Education on ARU Expectations, UE/LE Strengthing Goal Met for this Session: Yes Pt Benefit of Group: Contributions to Others, F/U Use of Strategies @Home, Increased Functional Safety, Increased Functional Strength, Improved Cognition, Recognition of Peers, Socialization Other/Notes Pt propelled w/c to [facility] area for OT/PT group. Group consisted of introductions (name, place living, favorite fall therapy), socialization, seated UE/LE exercises, and educational topics involving nutrition, exercise. Pt introduced self appropriately, actively listened to peers. Pt able to complete B UE/LE seated exercises except feet/ankle due to medical issues, tolerated well. Pt acknowledged understanding by verbalizing understanding and giving personal stories. Pt participated in a multiple choice question/answer session about educational topics. After session, pt sitting in recliner. Call light/phone in reach. All needs met in room. Start Time: 13:00 Stop Time: 14:00 Total Billed Treatment Time: 60 Total Billed Treatment 1-GRP JEVON ZARAGOZA Aug 09, 2021 14:48
[2021-08-09] MEDS: HYDROcodone/APAP 5 MG/325 MG (LORTAB) TAB PO PRN ×2 (16:57→21:49)
[2021-08-09] MEDS: RIVAROXABAN 15 MG TABLET (XARELTO) PO SCH (18:55)
[2021-08-09 20:00] VITALS: BP 122/62
--- NOTE | 2021-08-09 20:18 | Individualized Plan of Care ---
Individualized Plan of Care Rehab Nursing IPOC Order Admission Date Aug 09, 2021 at 10:30 Current Orders Orders Admission Arrival Bed Request (08/09/21 11:07) Consult Wound Care Physician (08/09/21 11:11) Code/Resuscitation (08/09/21 11:24) Amoxicillin/Clavulanate Susp (Augmentin (08/09/21 21:00) Hydrocodone/Apap 5/325 Tablet (Lortab 5 (08/09/21 11:30) Melatonin Tablet (Melatonin Tablet) (08/09/21 11:30) Magnesium Hydroxide Oral Susp (Mom Oral (08/09/21 11:30) Antacid Suspension (Mylanta Suspension (08/09/21 11:30) Ondansetron Oral Dissolve Tab (Zofran (08/09/21 11:30) Patient May Use Own Meds, All (Patient M (08/09/21 11:30) Rivaroxaban Tablet (Xarelto Tablet) (08/09/21 19:00) Benzonatate Capsule (Tessalon Perles) (08/09/21 11:30) Consult Cardiology (08/09/21 11:24) Consult General Surgery (08/09/21 11:24) Incentive Spirometry Initial (08/09/21 11:24) Incentive Spirometry (Nursing) Q2H (08/09/21 11:24) Admission Order(Inpt,Obs,Sdc) (08/09/21 11:24) Vital Signs: Per Unit Policy ( 08,16,00 (08/09/21 11:24) Sequential Compression Device .admit (08/09/21 11:24) Sales Operations Assistant-Inpt Rehab Con (08/09/21 11:24) Rehab Nursing Orders-Ipoc (08/09/21 11:24) Physical Therapy Rehab Orders (08/09/21 11:24) Occupational Therapy Rehab Ord (08/09/21 11:24) Speech Therapy Rehab Orders (08/09/21 11:24) Cbc With Automated Diff (08/10/21 06:00) Comprehensive Metabolic Panel (08/10/21 06:00) Precautions (Aru) (08/09/21 11:24) Rehab-Intensity Of Therapy (08/09/21 11:24) Initiate Admission Nursing Pro .admission (08/09/21 11:24) Alprazolam Tablet (Xanax Tablet) (08/09/21 11:30) Calcium Carbonate Chew Tablet (Antacid C (08/09/21 11:30) Diphenhydramine Tablet (Benadryl Tablet) (08/09/21 11:30) Docusate Sodium Capsule (Colace Capsule) (08/09/21 21:00) Docusate Sodium Capsule (Colace Capsule) (08/09/21 11:30) Bisacodyl Suppository (Dulcolax Supposit (08/09/21 11:30) Lactulose Oral Solution (Enulose Oral So (08/09/21 11:30) Na Phos/Na Biphos Enema (Fleet Enema Joe (08/09/21 11:30) Guaifenesin/Codeine Syrup (Robitussin Ac (08/09/21 11:30) Loperamide Tablet (Imodium Tablet) (08/09/21 11:30) Melatonin Tablet (Melatonin Tablet) (08/09/21 11:30) Polyethylene Glycol Powder Pkt (Miralax (08/09/21 21:00) Senna S Tablet (Senokot S Tablet) (08/09/21 21:00) Initiate Admission Nursing Pro .admission (08/09/21 11:24) Acetaminophen Tablet/Caplet (Tylenol T (08/09/21 11:45) Rivaroxaban Tablet (Xarelto Tablet) (08/29/21 17:00) General/Regular (08/09/21 Lunch) Patient Visit (08/09/21 ) Pt Eval Moderate Complexity (08/09/21 ) Exercise Therap, Ea 15 Min (08/09/21 ) Functional Activities, Ea 15 (08/09/21 ) Patient Visit (08/09/21 ) Rehab Nursing Orders: Ongoing Assess. of Cognitive Status, Ongoing Assess. of Function Status, Bladder Management, Bladder Scan, Bladder Training, Bowel Management, Bowel Training, Disease Management & Educaiton, DVT Prophylaxis, Fall Prevention, Fluid/Electrolyte/Nutrition Mgmt, Infection Prevention, Medication Management & Education, Management of Risks & Complications, Management of Skin Intergrity, Nutrition Management, Pain Management, Patient/Family Support, Safety Management, Wound Management Intensity of Therapy to be met Patient to be seen: Min.3h per day/5 of 7d PT IPOC Problem List: Activity Tolerance, Functional Strength, Safety, Balance, Gait, Transfer, Bed Mobility, ROM Treatment Plan: Continue Plan of Care Bed Mobility, Education, Functional Activity [place], Functional Strength, Group Therapy, Gait, Safety, Therapeutic Exercise, Transfers Treatment Duration: Oct 26, 2021 Frequency: At least 5 of 7 days/Wk (IRF) Estimated Hrs Per Day: 1.5 hours per day OT IPOC Problems: Decreased Activ Tolerance, Decreased UE Strength, Impaired Funct Balance OT Treatment, Training and Edu: Yes Plan of Care: ADL Retraining, Functional Mobility, Group Exercise/Act as Ind, UE Funct Exercise/Act Treatment Duration: Aug 31, 2021 Frequency: At least 5 of 7 days/Wk (IRF) Estimated Hrs Per Day: 1.[address] IPOC Speech Therapy Treatment Plan: Discontinue ST Treatment Duration: Aug 09, 2021 Frequency: Modified Program (IRF) Estimated Hrs Per Day: Other Sales Operations Assistant/Case Mgmt Sales Operations Assistant/Case Managemen: Discharge Planning Dietitian/Rn Care Manager Dietitian/Rn Care Manager to monitor nutritional status and make changes and/or recommendations as needed and work with speech pathology on dietary upgrades as the occur. Physician IPOC Medical Issues being managed closely and that require the 24 hour availability of a physician: Recent amputation with complex wounds in need of expert wound care will be at high risk for infection and decompensation with recurrent sepsis Medical Issues: Bowel/Bladder Function, DVT Prophylaxis, Falls Precautions, Fluid/Electrolyte/Nutrition Balance, Infection Protection, Pain Management, W ound Care Brief Synthesis of Preadmission Screen, Post-Admission Evaluation, and Therapy Evaluations: PT and OT will focus on regaining function with use of assistive devices in order to gain ambulatory skills and regain independent ADLs Medical Prognosis: Fair Anticipated Length of Stay: 10 days ATIF LIND DO Aug 09, 2021 20:18
[2021-08-09] MEDS: polyethylene glycoL POWDER 17 GM (MIRALAX) PACK PO SCH (21:22)
[2021-08-09] MEDS: AMOX/CLAV 600 MG/5 ML (AUGMENTIN) 75 ML BTL PO SCH (21:22)
[2021-08-09] MEDS: DOCUSATE SODIUM 100 MG (COLACE) CAP PO SCH (21:22)
[2021-08-09] MEDS: SENNA W/DOCUSATE (SENOKOT S) TABLET PO SCH (21:23)
[2021-08-10 06:06] LABS: BASOPHILS # (AUTO) 0.1 10^3/uL (0.0-0.1); BASOPHILS % (AUTO) 1 % (0-10); EOSINOPHILS # (AUTO) 0.3 10^3/uL (0.0-0.3); EOSINOPHILS % (AUTO) 6 % (0-10); HEMATOCRIT 36 % (40-54); HEMOGLOBIN 12.4 g/dL (13.3-17.7); LYMPHOCYTES # (AUTO) 1.7 10^3/uL (1.0-4.0); LYMPHOCYTES % (AUTO) 34 % (12-44); MEAN CORPUSCULAR HEMOGLOBIN 40 pg (25-34); MEAN CORPUSCULAR HGB CONC 35 g/dL (32-36); MEAN CORPUSCULAR VOLUME 116 fL (80-99); MEAN PLATELET VOLUME 9.7 fL (9.0-12.2); MONOCYTES # (AUTO) 0.4 10^3/uL (0.0-1.0); MONOCYTES % (AUTO) 8 % (0-12); NEUTROPHILS # (AUTO) 2.5 10^3/uL (1.8-7.8); NEUTROPHILS % (AUTO) 51 % (42-75); PLATELET COUNT 207 10^3/uL (130-400)
[2021-08-10 06:24] LABS: ALBUMIN 3.1 GM/DL (3.2-4.5); BILIRUBIN,TOTAL 0.3 MG/DL (0.1-1.0); CALCIUM 8.9 MG/DL (8.5-10.1); CREATININE SERUM 0.62 MG/DL (0.60-1.30); POTASSIUM 4.2 MMOL/L (3.6-5.0); TOTAL PROTEIN 6.2 GM/DL (6.4-8.2)
[2021-08-10] MEDS: RIVAROXABAN 15 MG TABLET (XARELTO) PO SCH (06:35)
[2021-08-10] MEDS: HYDROcodone/APAP 5 MG/325 MG (LORTAB) TAB PO PRN (06:37)
[2021-08-10 08:00] VITALS: BP 117/66
--- NOTE | 2021-08-10 08:22 | Progress Note - Surgery ---
BROOK LYLE 08/10/21 0822: Subjective Time Seen by a Provider: 09:00 Subjective/Events-last exam Pt is doing well, he states that his feet show better color than previous days. He denies N/V, constipation, diarrhea, fever, chills, CP, SOB, or abdominal pain. Objective Exam Vital Signs Date Time Temp Pulse Resp B/P (MAP) Pulse Ox O2 Delivery O2 Flow Rate FiO2 08/10/21 08:00 36.4 76 16 117/66 (83) 98 Room Air 08/09/21 21:23 100 Room Air 08/09/21 20:00 37.2 79 18 122/62 (82) 100 Room Air 08/09/21 15:22 Room Air 08/09/21 15:09 Room Air 08/09/21 10:30 36.8 86 18 122/63 (82) 92 Room Air Capillary Refill : General Appearance: No Apparent Distress, WD/WN HEENT: PERRL/EOMI Neck: Full Range of Motion, Normal Inspection, Non Tender Respiratory: Chest Non Tender, Lungs Clear, Normal Breath Sounds, No Accessory Muscle Use, No Respiratory Distress Cardiovascular: Regular Rate, Rhythm, No Gallop, No JVD, No Murmur Gastrointestinal: normal bowel sounds, non tender, soft Extremity: Swelling, Other (skin has patches of tightness on his legs, his heels of his feet do not look as ischemic as it did yesterday and the rest of his feet are dressed) Neurologic/Psychiatric: Alert, Oriented x3, Normal Mood/Affect, trimming inspector II-XII Norm as Tested Skin: Warm/Dry (legs B/L) Results Lab Laboratory Tests 08/10/21 05:30: White Blood Count 5.0, Red Blood Count 3.09L, Hemoglobin 12.4L, Hematocrit 36L, Mean Corpuscular Volume 116H, Mean Corpuscular Hemoglobin 40H, Mean Corpuscular Hemoglobin Concent 35, Red Cell Distribution Width 13.7, Platelet Count 207, Mean Platelet Volume 9.7, Immature Granulocyte % (Auto) 1, Neutrophils (%) (Auto) 51, Lymphocytes (%) (Auto) 34, Monocytes (%) (Auto) 8, Eosinophils (%) (Auto) 6, Basophils (%) (Auto) 1, Neutrophils # (Auto) 2.5, Lymphocytes # (Auto) 1.7, Monocytes # (Auto) 0.4, Eosinophils # (Auto) 0.3, Basophils # (Auto) 0.1, Immature Granulocyte # (Auto) 0.0, Sodium Level 135, Potassium Level 4.2, Chloride Level 102, Carbon Dioxide Level 23, Anion Gap 10, Blood Urea Nitrogen 5L, Creatinine 0.62, Estimat Glomerular Filtration Rate 143, BUN/Creatinine Ratio 8, Glucose Level 83, Calcium Level 8.9, Corrected Calcium 9.6, Total Bilirubin 0.3, Aspartate Amino Transf (AST/SGOT) 24, Alanine Aminotransferase (ALT/SGPT) 18, Alkaline Phosphatase 85, Total Protein 6.2L, Albumin 3.1L Assessment/Plan Assessment/Plan Assessment/Plan Wet gangrene and ischemic toes bilateral 1-3 s/p amputation of b/l toes 1-3 and left second metatarsal head and b/l foot blocks DVT bilateral lower extremity Vascular occlusive disease bilateral lower extremity Tobacco use Wound care- iodoform gauze, did not tolerate wound vac. patient understands may need further surgical intervention. Pain control. Continue abx Discussed need for smoking cessation Will sign Healthcare Provider Medication Certification sent to my office due to his disability as he will not be able to work for some time Yesterday he was moved into Inpatient rehab and today he will go to [facility] for a vascular consult for his legs B/L Peripheral angio on 08/07/21 with cardiology consult reveals left side of leg has complete occlusion that is not amendable to intervention or surgery, while the R leg has no significant PAD. CHASE GONZALEZ DO 08/13/21 0907: Supervisory-Addendum Brief Verification & Attestation Participated in pt care: other (Patient left AMA before seen.) Personally performed: other (Patient left AMA before seen.) Care discussed with: other (Patient left AMA before seen.) Procedures: other (Patient left AMA before seen.) Patient left AMA before seen. BROOK LYLE Aug 10, 2021 08:22 CHASE GONZALEZ DO Aug 13, 2021 09:07
[2021-08-10] MEDS: SENNA W/DOCUSATE (SENOKOT S) TABLET PO SCH (08:37)
[2021-08-10] MEDS: polyethylene glycoL POWDER 17 GM (MIRALAX) PACK PO SCH (08:37)
[2021-08-10] MEDS: DOCUSATE SODIUM 100 MG (COLACE) CAP PO SCH (08:37)
[2021-08-10] MEDS: AMOX/CLAV 600 MG/5 ML (AUGMENTIN) 75 ML BTL PO SCH (08:38)
--- NOTE | 2021-08-10 08:55 | Physical Therapy Daily Note ---
PT Daily Note-Current Subjective Patient in shower pre tx, agrees to PT, already working with OT, has unrated pain in feet, has already had pain meds but nurse notified that patient would like more. Will be co-treating with OT due to poor patient mobility, strength, endurance, severe pain with activity, coordinate UE and LE with activity, safety and reduce risk of falls. Appearance Patient in bed post tx with nurse call, phone, tray, all needs met. Mental Status Patient Orientation: Person, Place, Situation Transfers SCALE: Activities may be completed with or without assistive devices. 6-Fgdhndsztk-himuyfb completes the activity by him/herself with no assistance from a helper. 5-Set-up or Clean-up Assistance-helper sets up or cleans up; patient completes activity. [place] assists only prior to or following the activity. 4-Supervision or Touching Assistance-helper provides verbal cues and/or touching/steadying and/or contact guard assistance as patient completes activity. Assistance may be provided throughout the activity or intermittently. 3-Partial/Moderate Assistance-helper does LESS THAN HALF the effort. [place] lifts, holds or supports trunk or limbs, but provides less than half the effort. 2-Substantial/Maximal Assistance-helper does MORE THAN HALF the effort. [place] lifts or holds trunk or limbs and provides more than half the effort. 5-Dzeywoavv-zyqfqv does ALL the effort. Patient does none of the effort to complete the activity. Or, the assistance of 2 or more helpers is required for the patient to complete the activity. If activity was not attempted, code reason: 7-Patient Refused. 9-Not Applicable-not attempted and the patient did not perform the activity before the current illness, exacerbation or injury. 10-Not Attempted due to Environmental Limitations-(lack of equipment, weather restraints, etc.). 88-Not Attempted due to Medical Conditions or Safety Concerns. Roll Left & Right (QC): 6 Sit to Lying (QC): 6 Sit to Stand (QC): 3 Chair/Ulo-xy-Tzmvj Xfer(QC): 3 Patient performs a modified squat pivot transfer to from shower bench with mod assist, finishes dressing, after getting back to his room he performs a sliding board transfer with CGA back to bed. Weight Bearing Right Lower Extremity: Right Weight Bearing/Tolerated Left Lower Extremity: Left Weight Bearing/Tolerated Wheelchair Training Does the Pt Use a Wheelchair?: Yes Wheel 50 ft with 2 turns (QC): 4 Wheel 150 ft (QC): 4 Type of Wheelchair: Manual SBA, patient needs extra time to figure out how to turn, occasional cue for direction. Exercises Standing: Marching Standing Reps: 15 Patient stood twice in the parallel bars with mod assist, after standing just CGA, he stood on an airex pad to increase comfort on his feet and was able to stand for several minutes each time, he would even perform some marching. Bore a lot of weight through his arms. Said he felt a good stretch in his calves. Treatments PT performed bed mobility and transfers, standing, stretching, assisted with positioning and safety during shower and dressing, OT performed shower and dressing, UE positioning and safety during activity. Assessment Current Status: Fair Progress improving transfers PT Short Term Goals Short Term Goals Time Frame: Aug 29, 2021 Roll Left & Right: 5 Sit to lyin Lying to sitting on side of be: 5 Sit to stand: 3 Chair/plf-pg-ynhrc transfer: 4 Toilet transfer: 4 Car transfer: 4 Does pt use a wc or scooter: Yes Wheel 50ft w/2 turns: 5 Wheel 150 feet: 5 Type: Manual PT Snf Goals Snf Goals PT Transit Manager Goals Time Frame: Sep 19, 2021 Roll Left & Right (QC): 6 Sit to Lying (QC): 6 Lying-Sitting on Side/Bed(QC): 6 Sit to Stand (QC): 5 Chair/Rnr-wb-Jzkrb Xfer(QC): 5 Toilet Transfer (QC): 5 Car Transfer (QC): 5 Does the Patient Walk: No and Walking Goal IS indicated Walk 10 feet (QC): 3 Walk 50ft with 2 Turns (QC): 3 Walk 150 ft (QC): 88 Walking 10ft on Uneven Surface: 88 1 Step (curb) (QC): 3 4 Steps (QC): 3 12 Steps (QC): 88 Picking up an Object (QC): 4 Does the Pt use WC or Scooter?: Yes Wheel 50 feet with 2 turns (QC: 6 Type: Manual Wheel 150 feet: 6 Type: Manual PT Plan Problem List Problem List: Activity Tolerance, Functional Strength, Safety, Balance, Gait, Transfer, Bed Mobility, ROM Treatment/Plan Treatment Plan: Continue Plan of Care Treatment Plan: Bed Mobility, Education, Functional Activity Bronson, Functional Strength, Group Therapy, Gait, Safety, Therapeutic Exercise, Transfers Treatment Duration: Oct 26, 2021 Frequency: At least 5 of 7 days/Wk (IRF) Estimated Hrs Per Day: 1.5 hours per day Patient and/or Family Agrees t: Yes Safety Risks/Education Patient Education: Transfer Techniques, Correct Positioning, W/C Management, Safety Issues Teaching Recipient: Patient Teaching Methods: Demonstration, Discussion Response to Teaching: Reinforcement Needed Time/GCodes Time In: 0800 Time Out: 0900 Total Billed Treatment Time: 60 Total Billed Treatment 1 visit EX 15' FA 45' JUAN RAMON HEARD PT Aug 10, 2021 08:55
--- NOTE | 2021-08-10 09:43 | Occupational Ther Daily Note ---
OT Current Status-Daily Note Subjective Pt alert, lying in bed. 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 Pt agrees to therapy. Pt c/o pain throughout B lower legs. Mental Status/Objective Patient Orientation: Person, Place, Time, Situation ADL-Treatment Pt agrees to shower. Supine <-> EOB independent with bed rails. Slide board transfer with min A for safety, assist with placement and positioning. Max A for modified SPT to shower using w/c, bench and grabbars. Pt able to complete doffing/donning upper body clothing by self after set up. Min A for lower body dressing to thread feet in/out of pants due to pain and foot dressings. Pt completed shower by self with supervision for safety. PT/OT co-treat (0800- 0830), skills of 2 clinicians required for safety, decrease fall risk and increase safe mobility with transfers. PT focusing on transfers and OT focusing on ADLs. After therapy, pt left in care of PT all needs met in room. Therapy Code Descriptions/Definitions Functional [place] Measure: 0=Not Assessed/NA 4=Minimal Assistance 1=Total Assistance 5=Supervision or Setup 2=Maximal Assistance 6=Modified [place] 3=Moderate Assistance 7=Complete IndependenceSCALE: Activities may be completed with or without assistive devices. 3-Mkktfysaxy-coukkuh completes the activity by him/herself with no assistance from a helper. 5-Set-up or Clean-up Assistance-helper sets up or cleans up; patient completes activity. [place] assists only prior to or following the activity. 4-Supervision or Touching Assistance-helper provides verbal cues and/or touching/steadying and/or contact guard assistance as patient completes activity. Assistance may be provided throughout the activity or intermittently. 3-Partial/Moderate Assistance-helper does LESS THAN HALF the effort. [place] lifts, holds or supports trunk or limbs, but provides less than half the effort. 2-Substantial/Maximal Assistance-helper does MORE THAN HALF the effort. [place] lifts or holds trunk or limbs and provides more than half the effort. 8-Rkpsottjo-vatdpt does ALL the effort. Patient does none of the effort to complete the activity. Or, the assistance of 2 or more helpers is required for the patient to complete the activity. If activity was not attempted, code reason: 7-Patient Refused. 9-Not Applicable-not attempted and the patient did not perform the activity before the current illness, exacerbation or injury. 10-Not Attempted due to Environmental Limitations-(lack of equipment, weather restraints, etc.). 88-Not Attempted due to Medical Conditions or Safety Concerns. Eating (QC): 6 Shower/Bathe Self (QC): 4 Upper Body Dressing (QC): 5 Lower Body Dressing (QC): 3 On/Off Footwear: 88 Toileting Hygiene (QC): 2 (Per clinical judgment, pt able to place and hold urinal though assist to retrieve and empty) OT Short Term Goals Short Term Goals Time Frame: Aug 22, 2021 Upper body dressin Lower body dressin Putting on/taking off footwear: 3 OT Cokeman Goals Cokeman Goals Time Frame: Aug 31, 2021 Eating (QC): 6 Oral Hygiene (QC): 6 Toileting Hygiene (QC): 6 Shower/Bathe Self (QC): 6 Upper Body Dressing (QC): 6 Lower Body Dressing (QC): 6 On/Off Footwear (QC): 6 Additional Goals: 1-Demonstrate ADL Tasks, 2-Verbalize Understanding, 3-ImproveStrength/[place] 1=Demonstrate adherence to instructed precautions during ADL tasks. 2=Patient will verbalize/demonstrate understanding of assistive devices/modifications for ADL. 3=Patient will improve strength/tolerance for activity to enable patient to perform ADL's. OT Education/Plan Problem List/Assessment Assessment: Decreased Activ Tolerance, Decreased UE Strength, Impaired Self- Care Skills, Restricted Funct UE ROM Discharge Recommendations Plan/Recommendations: Continue POC Treatment Plan/Plan of Care Patient would benefit from OT for education, treatment and training to promote independence in ADL's, mobility, safety and/or upper extremity function for A DL's. Plan of Care: ADL Retraining, Functional Mobility, Group Exercise/Act as Ind, UE Funct Exercise/Act Treatment Duration: Aug 31, 2021 Frequency: At least 5 of 7 days/Wk (IRF) Estimated Hrs Per Day: 1.5 hours per day Agreement: Yes Rehab Potential: Fair Time/GCodes Start Time: 07:30 Stop Time: 08:30 Total Time Billed (hr/min): 60 Billed Treatment Time 1 visit-ADL 4 (60 min) co-treat with PT [id number], individual [id number] JEVON ZARAGOZA Aug 10, 2021 09:43
[2021-08-10] MEDS ORDERED: AMOX600S4 PO (10:59)
[2021-08-10] MEDS ORDERED: ACHD5005 PO (10:59)
[2021-08-10] MEDS ORDERED: RIVA20TA2 PO (10:59)
[2021-08-10] MEDS ORDERED: RIVA15TA2 PO (10:59)
--- NOTE | 2021-08-10 10:59 | Discharge Summary ---
Diagnosis/Chief Complaint Date of Admission Aug 09, 2021 at 10:30 Date of Discharge Discharge Date: Aug 10, 2021 Discharge Diagnosis Assessment: Bilateral multiple toe amputations due to gangrene History of DVT Acute DVT bilaterally Smoker Plan: Supportive care Wound care Inpatient rehab protocol ATIF LIND DO Discharge Summary Discharge Physical Examination Allergies: Coded Allergies: No Known Drug Allergies (Unverified , 08/04/21) He denies allergies to drugs and food, says he has seasonal allergies Vitals & I&Os Vital Signs Date Time Temp Pulse Resp B/P (MAP) Pulse Ox O2 Delivery O2 Flow Rate FiO2 08/10/21 15:53 36.4 76 16 117/66 100 Room Air General Appearance: Alert, Oriented X3, Cooperative Respiratory: Clear to Auscultation Cardiovascular: Regular Rate Hospital Course Was the Problem List Reviewed?: Yes Short hospital course wound date after admission Dr. Powell evaluated the lower extremity peripheral vascular disease after Dr. Wayne assessed the vessels to not be conducive to healing the wound. Dr. Zacarias Hinkle is willing to perform vascular procedure in order to help save bilateral limbs. Labs (last 24 hrs) Laboratory Tests 08/10/21 05:30: White Blood Count 5.0, Red Blood Count 3.09L, Hemoglobin 12.4L, Hematocrit 36L, Mean Corpuscular Volume 116H, Mean Corpuscular Hemoglobin 40H, Mean Corpuscular Hemoglobin Concent 35, Red Cell Distribution Width 13.7, Platelet Count 207, Mean Platelet Volume 9.7, Immature Granulocyte % (Auto) 1, Neutrophils (%) (Auto) 51, Lymphocytes (%) (Auto) 34, Monocytes (%) (Auto) 8, Eosinophils (%) (Auto) 6, Basophils (%) (Auto) 1, Neutrophils # (Auto) 2.5, Lymphocytes # (Auto) 1.7, Monocytes # (Auto) 0.4, Eosinophils # (Auto) 0.3, Basophils # (Auto) 0.1, Immature Granulocyte # (Auto) 0.0, Sodium Level 135, Potassium Level 4.2, Chloride Level 102, Carbon Dioxide Level 23, Anion Gap 10, Blood Urea Nitrogen 5L, Creatinine 0.62, Estimat Glomerular Filtration Rate 143, BUN/Creatinine Ratio 8, Glucose Level 83, Calcium Level 8.9, Corrected Calcium 9.6, Total Bilirubin 0.3, Aspartate Amino Transf (AST/SGOT) 24, Alanine Aminotransferase (ALT/SGPT) 18, Alkaline Phosphatase 85, Total Protein 6.2L, Albumin 3.1L Pending Labs Laboratory Tests 08/10/21 05:30: White Blood Count 5.0, Red Blood Count 3.09, Hemoglobin 12.4, Hematocrit 36, Mean Corpuscular Volume 116, Mean Corpuscular Hemoglobin 40, Mean Corpuscular Hemoglobin Concent 35, Red Cell Distribution Width 13.7, Platelet Count 207, Mean Platelet Volume 9.7, Immature Granulocyte % (Auto) 1, Neutrophils (%) (Auto) 51, Lymphocytes (%) (Auto) 34, Monocytes (%) (Auto) 8, Eosinophils (%) (Auto) 6, Basophils (%) (Auto) 1, Neutrophils # (Auto) 2.5, Lymphocytes # (Auto) 1.7, Monocytes # (Auto) 0.4, Eosinophils # (Auto) 0.3, Basophils # (Auto) 0.1, Immature Granulocyte # (Auto) 0.0, Sodium Level 135, Potassium Level 4.2, Chloride Level 102, Carbon Dioxide Level 23, Anion Gap 10, Blood Urea Nitrogen 5, Creatinine 0.62, Estimat Glomerular Filtration Rate 143, BUN/Creatinine Ratio 8, Glucose Level 83, Calcium Level 8.9, Corrected Calcium 9.6, Total Bilirubin 0.3, Aspartate Amino Transf (AST/SGOT) 24, Alanine Aminotransferase (ALT/SGPT) 18, Alkaline Phosphatase 85, Total Protein 6.2, Albumin 3.1 Discharge Home Medications: Active Scripts Active HYDROcodone/APAP 5 MG/325 MG TAB (Acetaminophen/Hydrocodone Bitart) 1 Tab Tab 1-2 Ea PO Q6HR PRN 10 Days Amox Tr-K Clv 600-42.9/5 Susp (Amoxicillin/Potassium Clav) 600 Mg/5 Ml Susp.recon 0 Mg PO BID 5 Days Xarelto Tablet (Rivaroxaban) 20 Mg Tablet 20 Mg PO DAILY@1700 365 Days start after 15mg PO BID dosing completed Xarelto Tablet (Rivaroxaban) 15 Mg Tablet 15 Mg PO BID@0700,1900 21 Days Reported Samantha-[place] Plus Cold Tab Eff (Chlorphenir/Phenyleph/Aspirin) 1 Each Tablet.eff 1 Each PO Q4H PRN MDD 8 DISSOLVES IN 4OZ OF WATER Tylenol Extra Strength (Acetaminophen) 500 Mg Tablet 1,000 Mg PO Q8H PRN Instructions to patient/family Please see electronic discharge instructions given to patient. Diagnosis/Problems Diagnosis/Problems (1) Acute deep vein thrombosis (DVT) of both lower extremities Status: Acute (2) History of DVT (deep vein thrombosis) (3) PAD (peripheral artery disease) Status: Acute (4) Gangrene of both feet Status: Acute (5) Tobacco abuse Status: Chronic (6) Alcohol abuse Status: Chronic ATIF LIND DO Aug 10, 2021 10:59
--- NOTE | 2021-08-10 11:21 | Wound Care Assessment ---
Wound Care Assessment Date Seen by Provider: Aug 10, 2021 Time Seen by Provider: 09:00 Chief Complaint Foot wounds HPI Patient admitted with bilateral gangrenous wounds to feet. Has been seen by both our surgeons and electric motor analyst. Patient with complex arterial and venous disease. Amputations of toes 1-3 bilaterally on 08/05/[address] Fernandez. The tissue surrounding remains dusky and concerning in appearance from a perfusion perspective. The nature of his arterial disease is such that intervention could be quite diffucult (see cards note and angio for full details). This is complicated further by Mr. Ma's lifestyle issues. He has a h/o alcohol and tobacco abuse. He does not have a h/o DM2 or autoimmune conditions. He does have b/l DVT's and is anticoagulated. Current wound care measures are iodaform gauze packing daily. Mr. Ma did not tolerate a wound vac due to pain and does have significant pain with dressing changes. He is currently on Augmentin. Past Medical History: Admits Deep Vein Thrombosis, Admits Peripheral Artery Disease Smoking Status: Current Everyday Smoker (1.5 ppd for many years) Alcohol Use: Occasionally Uses Exam Vital Signs Date Time Temp Pulse Resp B/P (MAP) Pulse Ox O2 Delivery O2 Flow Rate FiO2 08/10/21 09:08 100 Room Air 08/10/21 08:00 36.4 76 16 117/66 (83) Capillary Refill : General Appearance: WD/WN, mild distress (due to pain) HEENT: PERRL/EOMI Respiratory: no respiratory distress, no accessory muscle use Extremities: pedal edema Skin: cyanosis, other (dusky discoloration from periwound extending to ankle bilaterally, cyanosis immediately surrounding wound margin beatriz. on left) Skin Problem Location: lower extremities Skin Character: tenderness, other (bilateral amuptations of 1-3 digits to MTH. Wound base with some bleeding. R: 6x4x2 cm, L: 4.0d2o4bt. THere is no tunneling or undermining, the wounds are full thickness with bone exposed (non-necrotic bone), drainage is serosanguinous and large, margins show cyanosis and necrotic slough, granulation is none, fibrin slough is large, epithelialization is none.) Results Laboratory Tests 08/10/21 05:30: White Blood Count 5.0, Red Blood Count 3.09L, Hemoglobin 12.4L, Hematocrit 36L, Mean Corpuscular Volume 116H, Mean Corpuscular Hemoglobin 40H, Mean Corpuscular Hemoglobin Concent 35, Red Cell Distribution Width 13.7, Platelet Count 207, Mean Platelet Volume 9.7, Immature Granulocyte % (Auto) 1, Neutrophils (%) ( Auto) 51, Lymphocytes (%) (Auto) 34, Monocytes (%) (Auto) 8, Eosinophils (%) (Auto) 6, Basophils (%) (Auto) 1, Neutrophils # (Auto) 2.5, Lymphocytes # (Auto) 1.7, Monocytes # (Auto) 0.4, Eosinophils # (Auto) 0.3, Basophils # (Auto) 0.1, Immature Granulocyte # (Auto) 0.0, Sodium Level 135, Potassium Level 4.2, Chloride Level 102, Carbon Dioxide Level 23, Anion Gap 10, Blood Urea Nitrogen 5L, Creatinine 0.62, Estimat Glomerular Filtration Rate 143, BUN/Creatinine Ratio 8, Glucose Level 83, Calcium Level 8.9, Corrected Calcium 9.6, Total Bilirubin 0.3, Aspartate Amino Transf (AST/SGOT) 24, Alanine Aminotransferase (ALT/SGPT) 18, Alkaline Phosphatase 85, Total Protein 6.2L, Albumin 3.1L Assessment/Plan/Dx Assessment: 1. Gangrene of bilateral feet s/p amputation of 1-3 digits 2. Peripheral arterial disease with associated ulceration 3. DVT bilaterally 4. Tobacco and Alcohol abuse Plan: 1. Continue oral antibiotics 2. Continue current dressing with iodaform packing daily with gauze and roller gauze 3. I have discussed this case with Dr. Powell, Dr. Fernandez and Dr. Cordova. We all agree that his situation is quite concerning for wound healing failure and further amputation. Dr. Powell has discussed with Dr. Adames in [place] who has agreed to look further at perfusion and see if there are options for treatment that might maximize our potential for success in saving this young man's legs. Defer transfer to PCP and further intervention into their capable hands. I am happy to see Mr. Ma back in outpatient follow up as is necessary in the future. 4. I strongly advocated lifestyle changes (beatriz. smoking cessation) with Mr. Ma in effort to improve our chances of wound healing in the future. HARLEEN SMITH MD Aug 10, 2021 11:21
--- NOTE | 2021-08-10 14:15 | Occupational Ther Daily Note ---
OT Current Status-Daily Note Subjective Pt alert, lying in bed. Pt agrees to therapy. Pt to discharge to [facility] today. Mental Status/Objective Patient Orientation: Person, Place, Time, Situation ADL-Treatment Pt able to complete eating independently. Pt able to complete bed mobility using bed rails independently. Pt requiring assistance to retrieve hard copy of disability pages. MORIS discussed with SW and was able to come up with a plan to print papers off for pt. Pt able to complete functional fine motor and UE gross motor tasks without difficulty. After session, pt lying in bed eating lunch. Call light/phone in reach. All needs met in room. Therapy Code Descriptions/Definitions Functional [place] Measure: 0=Not Assessed/NA 4=Minimal Assistance 1=Total Assistance 5=Supervision or Setup 2=Maximal Assistance 6=Modified [place] 3=Moderate Assistance 7=Complete IndependenceSCALE: Activities may be completed with or without assistive devices. 7-Mforvgillz-oekbhkj completes the activity by him/herself with no assistance from a helper. 5-Set-up or Clean-up Assistance-helper sets up or cleans up; patient completes activity. Two Dot assists only prior to or following the activity. 4-Supervision or Touching Assistance-helper provides verbal cues and/or touching/steadying and/or contact guard assistance as patient completes activity. Assistance may be provided throughout the activity or intermittently. 3-Partial/Moderate Assistance-helper does LESS THAN HALF the effort. Two Dot lifts, holds or supports trunk or limbs, but provides less than half the effort. 2-Substantial/Maximal Assistance-helper does MORE THAN HALF the effort. Two Dot lifts or holds trunk or limbs and provides more than half the effort. 3-Eshhrolfp-fsnhri does ALL the effort. Patient does none of the effort to complete the activity. Or, the assistance of 2 or more helpers is required for the patient to complete the activity. If activity was not attempted, code reason: 7-Patient Refused. 9-Not Applicable-not attempted and the patient did not perform the activity before the current illness, exacerbation or injury. 10-Not Attempted due to Environmental Limitations-(lack of equipment, weather restraints, etc.). 88-Not Attempted due to Medical Conditions or Safety Concerns. Eating (QC): 6 OT Short Term Goals Short Term Goals Time Frame: Aug 22, 2021 Upper body dressin Lower body dressin Putting on/taking off footwear: 3 OT Senior Living Goals Surveyor Mine Goals Time Frame: Aug 31, 2021 Eating (QC): 6 Oral Hygiene (QC): 6 Toileting Hygiene (QC): 6 Shower/Bathe Self (QC): 6 Upper Body Dressing (QC): 6 Lower Body Dressing (QC): 6 On/Off Footwear (QC): 6 Additional Goals: 1-Demonstrate ADL Tasks, 2-Verbalize Understanding, 3- ImproveStrength/Bronson 1=Demonstrate adherence to instructed precautions during ADL tasks. 2=Patient will verbalize/demonstrate understanding of assistive devices/modifications for ADL. 3=Patient will improve strength/tolerance for activity to enable patient to perform ADL's. OT Education/Plan Problem List/Assessment Assessment: Decreased Activ Tolerance, Decreased UE Strength, Impaired Self- Care Skills Discharge Recommendations Plan/Recommendations: Continue POC Treatment Plan/Plan of Care Patient would benefit from OT for education, treatment and training to promote independence in ADL's, mobility, safety and/or upper extremity function for ADL's. Plan of Care: ADL Retraining, Functional Mobility, Group Exercise/Act as Ind, UE Funct Exercise/Act Treatment Duration: Aug 31, 2021 Frequency: At least 5 of 7 days/Wk (IRF) Estimated Hrs Per Day: 1.5 hours per day Agreement: Yes Rehab Potential: Fair Time/GCodes Start Time: 11:00 Stop Time: 11:30 Total Time Billed (hr/min): 30 Billed Treatment Time 1 visit-FA 2 (30 min) JEVON ZARAGOZA Aug 10, 2021 14:15
--- NOTE | 2021-08-10 15:22 | Progress Note - Cardiology ---
Cardiology SOAP Progress Note Subjective: No cp or palp or syncope or shortness of breath Some discomfort at sites of surgery, mild to mod No leg discomfort No n/v/d Objective: I&O/Vital Signs 08/10/21 08/10/21 08:00 09:08 Temp 36.4 Pulse 76 Resp 16 B/P (MAP) 117/66 (83) Pulse Ox 98 100 O2 Delivery Room Air Room Air Constitutional: AAO x 3, well-developed, well-nourished Respiratory: No accessory muscle use; other (good, bilateral air entry) Cardiovascular: regular rate-rhythm, S1 and S2, systolic murmur (soft ANUPAMA at card bse) Gastrointestional: No tender; soft; No guarding, No rebound; audible bowel sounds Extremities: No clubbing, No cyanosis Neurologic/Psychiatric: oriented x 3, other (moves all limbs equally) Skin: No rash on exposed areas, No ulcerations on exposed areas; other (forefeet under dressing) Results/Procedures: Labs Laboratory Tests 08/10/21 05:30: White Blood Count 5.0, Red Blood Count 3.09L, Hemoglobin 12.4L, Hematocrit 36L, Mean Corpuscular Volume 116H, Mean Corpuscular Hemoglobin 40H, Mean Corpuscular Hemoglobin Concent 35, Red Cell Distribution Width 13.7, Platelet Count 207, Me an Platelet Volume 9.7, Immature Granulocyte % (Auto) 1, Neutrophils (%) (Auto) 51, Lymphocytes (%) (Auto) 34, Monocytes (%) (Auto) 8, Eosinophils (%) (Auto) 6, Basophils (%) (Auto) 1, Neutrophils # (Auto) 2.5, Lymphocytes # (Auto) 1.7, Monocytes # (Auto) 0.4, Eosinophils # (Auto) 0.3, Basophils # (Auto) 0.1, Immature Granulocyte # (Auto) 0.0, Sodium Level 135, Potassium Level 4.2, Chloride Level 102, Carbon Dioxide Level 23, Anion Gap 10, Blood Urea Nitrogen 5L, Creatinine 0.62, Estimat Glomerular Filtration Rate 143, BUN/Creatinine Ratio 8, Glucose Level 83, Calcium Level 8.9, Corrected Calcium 9.6, Total Bilirubin 0.3, Aspartate Amino Transf (AST/SGOT) 24, Alanine Aminotransferase (ALT/SGPT) 18, Alkaline Phosphatase 85, Total Protein 6.2L, Albumin 3.1L Laboratory Tests 08/10/21 05:30 Procedures Laboratory Tests 08/10/21 05:30 A/P: Assessment: Sepsis due to wet gangrenous wounds on feet - Amputation of bilateral 1st, 2nd and 3rd toes, left partial amputation of the 2nd metatarsal head and bilateral foot block on 08/05/21 PAD - Peripheral angio on 08-07-21: complete occlusion of the left superficial femoral (entire length, beginning at the ostium) and popliteal arteries with reconstitution in the calf (posterior tibial); this does not appear amenable to intervention or surgery. No significant PAD on the R DVT - Recurrent bilateral DVT Tobacco abuse - cessation advised Plan: * I discussed his case with Dr Wayne of the [facility] and with Dr Cordova, his primary attending * Wounds have not been healing well, especially on the L, per Dr Wayne * I called Dr Oquendo of [facility] surgical sv[facility] and Dr Adames of the CV interventional svce at [facility] and requested them to review the peripheral angio films. Dr Oquendo does not feel that there is a surgical option. Dr Adames is willing to try a retrograde approach to see if the sup fem/popliteal system can be opened on the L. He agreed to take the patient in transfer and I informed Dr Cordova and Dr Wayne of that * I had a discussion with the patient himself and advised him to allow transfer to [facility]. He continues to refuse. I have answered all his questions. He understands the rationale of transfer and our recommendations, but he continues to refuse YENY SKELTON MD [facility] Aug 10, 2021 15:22
[2021-08-10 15:53] VITALS: BP 117/66
--- NOTE | 2021-08-11 09:36 | Therapy Team Discharge Summary ---
Therapy Discharge Summary Discharge Recommendations Date of Discharge Aug 10, 2021 at 15:43 Occupational Therapy Pt admitted to ARU with debility, s/p toe amputations digits 1-3 bilaterally. At [facility], pt was independent with ADLs and functional mobility, using AD as needed, his completed IADLs. Upon initial evaluation, pt was independent with eating and oral care, supervision with showering, set up upper body dressing, mod A lower body dressing, and max A toileting. Footwear unattempted due to medical complexity/foot wounds. Pt only met IND level with eating and oral care, due to short stay. Pt had increased medical complexity, recommendations to transfer to another hospital. Pt declined transfer and discharged to his house, leaving hospital AMA. D/C from OT. Decreased Activ Tolerance, Decreased UE Strength, Impaired Self-Care Skills PT Intermediate Goals Hat Maker Goals PT Intermediate Goals Time Frame: Sep 19, 2021 Roll Left to Right (QC): 6 Sit to Lying (QC): 6 Lying-Sitting on Side/Bed(QC): 6 Sit to Stand (QC): 5 Chair/Ysv-zx-Wzhkp Xfer(QC): 5 Car Transfer (QC): 5 Does the Patient Walk: No and Walking Goal IS indicated Walk 10 feet (QC): 3 Walk 10ft-Uneven Surface(QC): 88 Walk 50ft with 2 Turns (QC): 3 Walk 150 ft (QC): 88 Does the Pt use WC or Scooter?: Yes Wheel 50 feet with 2 turns (QC: 6 1 Step (curb) (QC): 3 4 Steps (QC): 3 12 Steps (QC): 88 Picking up an Object (QC): 4 OT Intermediate Goals Intermediate Goals Time Frame: Aug 31, 2021 Eating (QC): 6 (met) Oral Hygiene (QC): 6 (not met) Shower/Bathe Self (QC): 6 Upper Body Dressing (QC): 6 (not met) Lower Body Dressing (QC): 6 (not met) On/Off Footwear (QC): 6 (not met) Toileting Hygiene (QC): 6 (not met) Toilet/Commode Transfer (QC): 5 (not met) Additional Goals: 1-Demonstrate ADL Tasks, 2-Verbalize Understanding, 3- ImproveStrength/Bronson 1=Demonstrate adherence to instructed precautions during ADL tasks. 2=Patient will verbalize/demonstrate understanding of assistive devices /modifications for ADL. 3=Patient will improve strength/tolerance for activity to enable patient to perform ADL's. JAMESON LIU OT Aug 11, 2021 09:36
--- NOTE | 2021-08-11 11:27 | Therapy Team Discharge Summary ---
Therapy Discharge Summary Discharge Recommendations Date of Discharge Aug 10, 2021 at 15:43 Physical Therapy Patient came to rehab with debility and bilateral 1st through 3rd toe amputations. Upon evaluation patient performed bed mobility and supine <-> sit with SBA, transfers and car transfer with min/mod assist, and propelled a manual WC 150' with SBA. Patient was only on rehab for about a day and a half before leaving AMA. Patient did make some slight improvements in the short time he was here. He could perform a sliding board transfer with CGA and could also perform a modified squat pivot transfer with mod assist. Patient has been discharged from this facility and will be discharged from PT at this time. Occupational Therapy Decreased Activ Tolerance, Decreased UE Strength, Impaired Self-Care Skills PT Residential Goals Salesperson [employer] Goals PT Residential Goals Time Frame: Sep 19, 2021 Roll Left to Right (QC): 6 Sit to Lying (QC): 6 Lying-Sitting on Side/Bed(QC): 6 Sit to Stand (QC): 5 Chair/Rey-lz-Ixxio Xfer(QC): 5 Car Transfer (QC): 5 Does the Patient Walk: No and Walking Goal IS indicated Walk 10 feet (QC): 3 Walk 10ft-Uneven Surface(QC): 88 Walk 50ft with 2 Turns (QC): 3 Walk 150 ft (QC): 88 Does the Pt use WC or Scooter?: Yes Wheel 50 feet with 2 turns (QC: 6 1 Step (curb) (QC): 3 4 Steps (QC): 3 12 Steps (QC): 88 Picking up an Object (QC): 4 OT [employer]person [employer] Goals [employer]person [employer] Goals Time Frame: Aug 31, 2021 Eating (QC): 6 (met) Oral Hygiene (QC): 6 (not met) Shower/Bathe Self (QC): 6 Upper Body Dressing (QC): 6 (not met) Lower Body Dressing (QC): 6 (not met) On/Off Footwear (QC): 6 (not met) Toileting Hygiene (QC): 6 (not met) Toilet/Commode Transfer (QC): 5 (not met) Additional Goals: 1-Demonstrate ADL Tasks, 2-Verbalize Understanding, 3- ImproveStrength/Bronson 1=Demonstrate adherence to instructed precautions during ADL tasks. 2=Patient will verbalize/demonstrate understanding of assistive devices/modific ations for ADL. 3=Patient will improve strength/tolerance for activity to enable patient to perform ADL's. JUAN RAMON HEARD PT Aug 11, 2021 11:27
[2021-08-11] MEDS ORDERED: RIVA20TA PO (22:31)
[2021-08-11] MEDS ORDERED: HYDR-3817 PO (22:31)
[2021-08-29] MEDS ORDERED: RIVAROXABAN 20 MG TABLET (XARELTO) PO SCH (17:00)
== END 2021-08-10 15:43 | disposition left against medical advice (07) | DRG 560 ==
PROVIDERS: ADMIT Internal Medicine; ATTEND Internal Medicine
DX: Z47.81 Encounter for orthopedic aftercare following surgical amputation (principal); I82.4Z1 Acute embolism and thrombosis of unspecified deep veins of right distal lower extremity; I82.413 Acute embolism and thrombosis of femoral vein, bilateral; I82.433 Acute embolism and thrombosis of popliteal vein, bilateral; I73.9 Peripheral vascular disease, unspecified; F17.210 Nicotine dependence, cigarettes, uncomplicated; F10.10 Alcohol abuse, uncomplicated; D53.9 Nutritional anemia, unspecified; E80.6 Other disorders of bilirubin metabolism; Z86.718 Personal history of other venous thrombosis and embolism; Z89.422 Acquired absence of other left toe(s); Z89.421 Acquired absence of other right toe(s)
CPT/HCPCS: 36415; 80053; 85025

== ENCOUNTER 2021-08-11 19:53 | Emergency (ER) | payer SELFPAY ==
[~2021-08-11] VITALS: Ht 182.9 cm; Wt 90.7 kg
[~2021-08-11 19:53] MED LIST changes: +ACHD5005 PO; +AMOX600S4 PO; +RIVA15TA2 PO; +RIVA20TA2 PO
--- NOTE | 2021-08-11 20:23 | ED General ---
General Chief Complaint: Post OP Complications/Pain Stated Complaint: CATHLEEN FOOT INJURY/PAIN Nursing Triage Note: PT TO ROOM 02 [facility]IA [facility] WITH C/O POST OP PAIN. PT REPORTS HAVING X3 TOES AMPUTATED FROM BOTH FEET ON THE OF THIS MONTH. PT LEFT THIS FACILITY AMA ON THE OF THIS MONTH. PT WAS SET TO BE TRANSFERRED TO [facility] IN [place] AND NOW STATES THAT HE WANTS TO BE SEEN IN THIS ED AND TRANSFERRED TO [place]. Source of Information: Patient Exam Limitations: No Limitations History of Present Illness Date Seen by Provider: Aug 11, 2021 Time Seen by Provider: 20:00 Initial Comments Patient is a 41-year-old male who presents to the emergency department with a chief complaint of postoperative pain in both feet after having multiple toes amputated earlier last week. Patient left the hospital AGAINST MEDICAL ADVICE on the . He is now wanting to be transferred back to [place] for definitive care for circulatory issues to the lower extremities. Patient complains of pain in his feet. When he left [place] yesterday he was not discharged with any blood thinners or pain medications. He is denying any complaints of infection such as fevers, chills, drainage, shortness of breath, cough. No abdominal pain, nausea, vomiting or diarrhea. No other GI or complaints. Patient states that he does not have a primary care physician. He is not scheduled for any wound care follow-up. States he is quit smoking. All other review of systems reviewed and negative except as stated. Timing/Duration: 1 Day Severity: Mild Associated Systoms: Denies Symptoms Allergies and Home Medications Allergies Coded Allergies: No Known Drug Allergies (Unverified , 08/04/21) He denies allergies to drugs and food, says he has seasonal allergies Patient Home Medication List Home Medication List Reviewed: Yes Acetaminophen (Tylenol Extra Strength) 500 Mg Tablet, 1,000 MG PO Q8H PRN for PAIN-MILD (1-4), (Reported) Entered as Reported by: KIERA DELACRUZ on 08/06/21 0831 Amoxicillin/Potassium Clav (Amox Tr-K Clv 600-42.9/5 Susp) 600 Mg/5 Ml Susp.recon, 0 MG PO BID Prescribed by: ATIF LIND on 08/10/21 1059 Chlorphenir/Phenyleph/Aspirin (Samantha-[place] Plus Cold Tab Eff) 1 Each Tablet.eff, 1 EACH PO Q4H PRN for PAIN-BREAKTHROUGH, (Reported) Entered as Reported by: KIERA DELACRUZ on 08/06/21 0835 Hydrocodone Bit/Acetaminophen (HYDROcodone/APAP 5 MG/325 MG TAB) 1 Tab Tab, 1-2 EA PO Q6HR PRN for PAIN-MODERATE (5-7) Prescribed by: ATIF LIND on 08/10/21 1059 Hydrocodone/Acetaminophen (Hydrocodone-Acetamin 7.5-325) 1 Each Tablet, 1 EACH PO Q6H PRN for PAIN-SEVERE (8-10) Prescribed by: KYE FINCH on 08/11/212231 Rivaroxaban (Xarelto Tablet) 15 Mg Tablet, 15 MG PO BID@0700,1900 Prescribed by: ATIF LIND on 08/10/21 1059 Rivaroxaban (Xarelto Tablet) 20 Mg Tablet, 20 MG PO DAILY@1700 Prescribed by: ATIF LIND on 08/10/21 1059 Rivaroxaban (Xarelto) 20 Mg Tablet, 20 MG PO DAILY Prescribed by: KYE FINCH on 08/11/212230 Review of Systems Review of Systems Constitutional: see HPI EENTM: no symptoms reported Respiratory: no symptoms reported Cardiovascular: no symptoms reported Gastrointestinal: no symptoms reported Genitourinary: no symptoms reported Musculoskeletal: other (foot pain bilateral) Skin: other (wounds bilateral feet) Psychiatric/Neurological: No Symptoms Reported All Other Systems Reviewed Negative Unless Noted: Yes Past Msrzqml-Usbfbi-Fygucx Hx Patient Social History Tobacco Use?: Yes Tobacco type used: Cigarettes Smoking Status: Current Everyday Smoker Smokeless Tobacco Frequency: Never a User Use of E-Cig and/or Vaping Felix: Never a User Substance use?: No Alcohol Use?: Yes Alcohol Frequency: Couple times a week Pt feels they are or have been: No Immunizations Up To Date First/Initial COVID19 Vaccinat: DOESN'T PLAN ON TAKING IT Seasonal Allergies Seasonal Allergies: Yes Past Medical History Surgery/Hospitalization HX: DVT RIGHT LEG, SMOKER ETOH ABUSE, HERNIA SURGERY, VASECTOMY 2003, TEETH ALL SURGICALLY REMOVED Surgeries: No Abdominal, Orthopedic Respiratory: No Cardiac: Yes Deep Vein Thrombosis Neurological: No Genitourinary: No Musculoskeletal: No Endocrine: No Cancer: No Integumentary: Yes Psoriasis Family Medical History No Pertinent Family Hx, Other Conditions/Hx Physical Exam Vital Signs Vital Signs - First Documented 08/11/21 08/11/21 19:58 23:08 Temp 36.8 Pulse 106 Resp 18 B/P (MAP) 136/80 (98) Pulse Ox 99 O2 Delivery Room Air Capillary Refill : Less Than 3 Seconds Height, Weight, BMI Height: '" Weight: lbs. oz. kg; 27.00 BMI Method: General Appearance: No Apparent Distress, WD/WN Eyes: Bilateral Eye Normal Inspection, Bilateral Eye PERRL, Bilateral Eye EOMI HEENT: PERRL/EOMI Respiratory: Lungs Clear, Normal Breath Sounds, No Accessory Muscle Use, No Re spiratory Distress Cardiovascular: Regular Rate, Rhythm, Normal Peripheral Pulses Gastrointestinal: Non Tender, Soft Extremity: Pedal Edema (bilateral 2-3+ edema. no calf tenderness), Swelling, Other (multiple toes amputated bilateral feet. wound margins look good. no drainage. bandages were clean in appearance. 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 (08/11/21 21:00) Medications Given in ED Current Medications Medications Dose Ordered Sig/Bill Route Start Time Stop Time Status Last Admin Dose Admin Acetaminophen/ Hydrocodone Bitart 1 ea ONCE ONCE PO 08/11/21 21:00 08/11/21 21:01 DC 08/11/21 20:57 1 EA Vital Signs/I&O 08/11/21 08/11/21 19:58 23:08 Temp 36.8 Pulse 106 78 Resp 18 20 B/P (MAP) 136/80 (98) 130/74 Pulse Ox 99 O2 Delivery Room Air Room Air Capillary Refill : Less Than 3 Seconds Blood Pressure Mean: 98 Progress Note : Time: 22:32 Progress Note Long investigation through the patient's chart over his last hospitalization shows the patient was not sent home with his Xarelto nor pain medicines for his foot wounds. I do not believe there is any emergent reason at this time to try and transfer the patient to [place]. Both of his legs are warm and appear to have decent circulation. The wound beds and margins do not appear infected. He is got no complaints of fevers, chills, shortness of breath, other indications of infection. Vital signs are stable. Will refer him to Dr. Adames over at [place] so that he can call for a follow-up appointment. Also referring him to wound care and back to Dr. Gonzalez for postsurgical management of his amputations. I am sending him home with a prescription for Xarelto 20 mg tablets x1 month. I am also giving him some pain medication, hydrocodone 7.5 number 20 tablets. Also referral made for [facility]. I do not believe the patient has any clinical or objective findings at this time to warrant hospitalization or repeat laboratory studies. We will dress of his wounds and have him follow-up as stated above. Departure Impression Primary Impression: Peripheral vascular disease Additional Impression: Wound, open, foot Qualified Codes: S91.309A - Unspecified open wound, unspecified foot, initial encounter Disposition: HOME, SELF-CARE Condition: Stable Departure-Patient Inst. Decision time for Depature: 22:26 Referrals: [facility]/CHASE TERRY MICHAEL G MD NO,LOCAL PHYSICIAN (PCP) Primary Care Physician Add. Discharge Instructions: Please call [facility] wound care clinic early Friday for follow-up regarding the wounds of your feet. Start taking the Xarelto 20 mg daily again. I have sent a prescription to your pharmacy. I have also sent a prescription for pain medications. Change your dressings once a day until you follow-up with wound care. You may try and call Dr. Gonzalez's office on Friday morning as well for postoperative wound care management. His contact information has been made available to you. Come back to the emergency department if you have any fevers, foul-smelling wound drainage, increased pain not taking care of by your pain medicines or any other emergent concerning symptoms. Call Dr. Ck Adames, cardiology office at [facility], for a follow-up appointment regarding your vascular disease in your legs. Scripts Hydrocodone/Acetaminophen (Hydrocodone-Acetamin 7.5-325) 1 Each Tablet 1 EACH PO Q6H PRN for PAIN-SEVERE (8-10), #20 TAB Prov: KYE FINCH MD 08/11/21 Rivaroxaban (Xarelto) 20 Mg Tablet 20 MG PO DAILY, #30 TAB Prov: KYE FINCH MD 08/11/21 Copy Copies To 1: JONES COON DO Copies To 2: CHASE GONZALEZ DO KYE FINCH MD Aug 11, 2021 20:23
[2021-08-11] MEDS ORDERED: HYDROcodone/APAP 7.5 MG/325 MG (LORTAB, LORCET PLUS) TABLET PO ONE (21:00)
[2021-08-11] MEDS ORDERED: RIVA20TA PO (22:31)
[2021-08-11] MEDS ORDERED: HYDR-3817 PO (22:31)
[2021-08-11 23:08] VITALS: BP 130/74
== END 2021-08-11 23:08 | disposition home or self-care (01) ==
LOC: EDUNIT# 19:53 → ER 19:55
DX: S98.922A Partial traumatic amputation of left foot, level unspecified, initial encounter (principal); S98.921A Partial traumatic amputation of right foot, level unspecified, initial encounter; I73.9 Peripheral vascular disease, unspecified; F17.210 Nicotine dependence, cigarettes, uncomplicated; Z86.718 Personal history of other venous thrombosis and embolism; Z79.01 Long term (current) use of anticoagulants; X58.XXXA Exposure to other specified factors, initial encounter
CPT/HCPCS: 99283

== ENCOUNTER 2021-08-23 04:23 | Inpatient (IN) | payer SELFPAY ==
[~2021-08-23] VITALS: Ht 182.9 cm; Wt 84.3 kg
[~2021-08-23 04:23] MED LIST changes: +HYDR-3817 PO; +RIVA20TA PO
--- OUTSIDE RECORDS SUMMARY | 2021-08-23 04:29 | XMS REPORT | Clinical Summary ---
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
--- NOTE | 2021-08-23 05:05 | ED General ---
General Chief Complaint: General Problems/Pain Stated Complaint: FOOT PAIN Source of Information: Patient Exam Limitations: No Limitations (KYE FINCH MD) History of Present Illness Date Seen by Provider: Aug 23, 2021 Time Seen by Provider: 04:45 Initial Comments Patient is a 41-year-old male who presents to the emergency room today with a chief complaint of needing his dressings changed on his feet. He comes in by ambulance, 2 weeks postop multiple toe amputations on both feet. Patient has a history of vascular disease and clotting disorder. I saw the patient earlier in the month on 11 August after he had left the hospital AMA in order to "do paperwork" at home for medical coverage. Patient was referred back to general surgery, wound care and advised to follow-up with home health. Patient states he does not have a car, he has no way whatsoever in order to get out of his house to obtain medical care. He states he has no one, friends or family, to assist him getting to doctors appointments or the pharmacy. He did not fill his prescription for pain medication or for the Xarelto that I prescribed. He has not taken the dressings off, or bathed since he was seen here 2 weeks ago. He has not cleaned his wounds. Patient denies fevers, chills, cough or congestion. No abdominal pain, n/v/d. He states that he has left foot greater than right foot pain. Patient's dressings on his feet are filthy and falling off. Patient PMH was significant for only a history of DVT prior to coming into the hospital on August 03. He was found to have severe LE PAD and bilateral DVT's. He had the toe amputations to both feet while here and treatment for his concomitant infection. He went to inpatient rehab where he stayed for about a day and a half; was scheduled to go to [place] for possible vascular intervention and then left the hospital AMA on August 10, I saw him back in the ED on the . Timing/Duration: Constant Associated Systoms: Other (bilateral foot pain) (KYE FINCH MD) Allergies and Home Medications Allergies Coded Allergies: No Known Drug Allergies (Unverified , 08/04/21) He denies allergies to drugs and food, says he has seasonal allergies Patient Home Medication List Home Medication List Reviewed: Yes (KYE FINCH MD) Acetaminophen (Tylenol Extra Strength) 500 Mg Tablet, 1,000 MG PO Q8H PRN for PAIN-MILD (1-4), (Reported) Entered as Reported by: KIERA DELACRUZ on 08/06/21 0831 Amoxicillin/Potassium Clav (Amox Tr-K Clv 600-42.9/5 Susp) 600 Mg/5 Ml Susp.recon, 0 MG PO BID Prescribed by: AITF LIND on 08/10/21 1059 Chlorphenir/Phenyleph/Aspirin (Samantha-[place] Plus Cold Tab Eff) 1 Each Tablet.eff, 1 EACH PO Q4H PRN for PAIN-BREAKTHROUGH, (Reported) Entered as Reported by: KIERA DELACRUZ on 08/06/21 0835 Hydrocodone Bit/Acetaminophen (HYDROcodone/APAP 5 MG/325 MG TAB) 1 Tab Tab, 1-2 EA PO Q6HR PRN for PAIN-MODERATE (5-7) Prescribed by: ATIF LIND on 08/10/21 1059 Hydrocodone/Acetaminophen (Hydrocodone-Acetamin 7.5-325) 1 Each Tablet, 1 EACH PO Q6H PRN for PAIN-SEVERE (8-10) Prescribed by: KYE FINCH on 08/11/212231 Rivaroxaban (Xarelto Tablet) 15 Mg Tablet, 15 MG PO BID@0700,1900 Prescribed by: ATIF LIND on 08/10/21 105 Rivaroxaban (Xarelto Tablet) 20 Mg Tablet, 20 MG PO DAILY@1700 Prescribed by: ATIF LIND on 08/10/21 105 Rivaroxaban (Xarelto) 20 Mg Tablet, 20 MG PO DAILY Prescribed by: KYE FINCH on 08/11/212230 Review of Systems Review of Systems Constitutional: see HPI EENTM: no symptoms reported Respiratory: no symptoms reported Cardiovascular: no symptoms reported Gastrointestinal: no symptoms reported Genitourinary: no symptoms reported Musculoskeletal: other (bilateral leg swelling and pain in his feet) Skin: no symptoms reported (KYE FINCH MD) All Other Systems Reviewed Negative Unless Noted: Yes (KYE FINCH MD) Past Gelzfei-Veoszt-Njjqzo Hx Immunizations Up To Date First/Initial COVID19 Vaccinat: DOESN'T PLAN ON TAKING IT (KYE FINCH MD) Seasonal Allergies Seasonal Allergies: Yes (KYE FINCH MD) Past Medical History Surgery/Hospitalization HX: DVT RIGHT LEG, SMOKER ETOH ABUSE, HERNIA SURGERY, VASECTOMY 2002, TEETH ALL SURGICALLY REMOVED Surgeries: No Abdominal, Orthopedic Respiratory: No Cardiac: Yes Deep Vein Thrombosis Neurological: No Genitourinary: No Musculoskeletal: No Endocrine: No Cancer: No Integumentary: Yes Psoriasis (KYE FINCH MD) Family Medical History No Pertinent Family Hx, Other Conditions/Hx (KYE FINCH MD) Physical Exam-Suspected Sepsis Physical Exam Vital Signs Vital Signs - First Documented 08/23/21 04:24 Temp 36.7 Pulse 111 Resp 16 B/P (MAP) 161/93 (115) Pulse Ox 100 O2 Delivery Room Air (FILIPE WARE) Vital Signs Capillary Refill : (KYE FINCH MD) Height, Weight, BMI Height: '" Weight: lbs. oz. kg; 27.00 BMI Method: General Appearance: No Apparent Distress, WD/WN HEENT: PERRL/EOMI Extremity: Pedal Edema (3+ pitting edema bilateral legs; dressings on both feet removed, revealing pre-exisiting packing in the wounds to be filled with salcedo, necrotic debris. the wound bases are salcedo and pus filled. no healthy pink tissue is visible. both wound bases look filled with tissue.) Neurologic/Psychiatric: Alert, Oriented x3, Normal Mood/Affect Skin: normal color, warm/dry (KYE FINCH MD) Respiratory: Lungs Clear, Normal Breath Sounds Cardiovascular: Regular Rate, Rhythm, No Murmur (FILIPE WARE) Focused Exam Lactate Level 08/23/21 05:15: Lactic Acid Level 3.11*H 08/23/21 08:14: Lactic Acid Level 2.07*H (FILIPE WARE) Lactic Acid Level Laboratory Tests Test 08/23/21 08:14 Lactic Acid Level 2.07 MMOL/L (0.50-2.00) *H (FILIPE WARE) Progress/Results/Core Measures Suspected Sepsis SIRS Temperature: Pulse: Respiratory Rate: Laboratory Tests 08/23/21 05:15: White Blood Count 6.2 Blood Pressure / Mean: 08/23/21 05:15: Lactic Acid Level 3.11*H Laboratory Tests 08/23/21 05:15: Creatinine 0.63, INR Comment 1.0, Platelet Count 320, Total Bilirubin 0.5 (KYE FINCH MD) Results/Orders Lab Results Laboratory Tests Test 08/23/21 05:15 08/23/21 05:30 08/23/21 08:14 Range/Units White Blood Count 6.2 4.3-11.0 10^3/uL Red Blood Count 3.79 L 4.30-5.52 10^6/uL Hemoglobin 14.8 13.3-17.7 g/dL Hematocrit 43 40-54 % Mean Corpuscular Volume 112 H 80-99 fL Mean Corpuscular Hemoglobin 39 H 25-34 pg Mean Corpuscular Hemoglobin Concent 35 32-36 g/dL Red Cell Distribution Width 13.0 10.0-14.5 % Platelet Count 320 130-400 10^3/uL Mean Platelet Volume 9.0 9.0-12.2 fL Immature Granulocyte % (Auto) 0 % Neutrophils (%) (Auto) 59 42-75 % Lymphocytes (%) (Auto) 29 12-44 % Monocytes (%) (Auto) 8 0-12 % Eosinophils (%) (Auto) 2 0-10 % Basophils (%) (Auto) 1 0-10 % Neutrophils # (Auto) 3.7 1.8-7.8 10^3/uL Lymphocytes # (Auto) 1.8 1.0-4.0 10^3/uL Monocytes # (Auto) 0.5 0.0-1.0 10^3/uL Eosinophils # (Auto) 0.2 0.0-0.3 10^3/uL Basophils # (Auto) 0.1 0.0-0.1 10^3/uL Immature Granulocyte # (Auto) 0.0 0.0-0.1 10^3/uL Erythrocyte Sedimentation Rate 54 H 0-15 MM/HR Prothrombin Time 13.4 12.2-14.7 SEC INR Comment 1.0 0.8-1.4 Activated Partial Thromboplast Time 32 24-35 SEC Sodium Level 140 135-145 MMOL/L Potassium Level 3.6 3.6-5.0 MMOL/L Chloride Level 106 98-107 MMOL/L Carbon Dioxide Level 20 L 21-32 MMOL/L Anion Gap 14 5-14 MMOL/L Blood Urea Nitrogen < 2 L 7-18 MG/DL Creatinine 0.63 0.60-1.30 MG/DL Estimat Glomerular Filtration Rate 140 BUN/Creatinine Ratio 3 Glucose Level 95 70-105 MG/DL Lactic Acid Level 3.11 *H 2.07 *H 0.50-2.00 MMOL/L Calcium Level 9.3 8.5-10.1 MG/DL Corrected Calcium 9.5 8.5-10.1 MG/DL Total Bilirubin 0.5 0.1-1.0 MG/DL Aspartate Amino Transf (AST/SGOT) 14 5-34 U/L Alanine Aminotransferase (ALT/SGPT) 14 0-55 U/L Alkaline Phosphatase 99 40-136 U/L C-Reactive Protein High Sensitivity 1.93 H 0.00-0.50 MG/DL Total Protein 7.0 6.4-8.2 GM/DL Albumin 3.8 3.2-4.5 GM/DL Urine Color YELLOW Urine Clarity CLEAR Urine pH 6.0 5-9 Urine Specific Isabela <=1.005 1.016-1.022 Urine Protein NEGATIVE NEGATIVE Urine Glucose (UA) NEGATIVE NEGATIVE Urine Ketones NEGATIVE NEGATIVE Urine Nitrite NEGATIVE NEGATIVE Urine Bilirubin NEGATIVE NEGATIVE Urine Urobilinogen 0.2 < = 1.0 MG/DL Urine Leukocyte Esterase NEGATIVE NEGATIVE Urine RBC (Auto) NEGATIVE NEGATIVE Urine RBC NONE /HPF Urine WBC NONE /HPF Urine Squamous Epithelial Cells RARE /HPF Urine Crystals NONE /LPF Urine Bacteria NEGATIVE /HPF Urine Casts NONE /LPF Urine Mucus NEGATIVE /LPF Urine Culture Indicated NO (FILIPE WARE) Medications Given in ED Current Medications Medications Dose Ordered Sig/Bill Route Start Time Stop Time Status Last Admin Dose Admin Piperacillin Sod/ Tazobactam Sod 4.5 gm/Sodium Chloride 100 ml @ 200 mls/hr ONCE ONCE IV 08/23/21 05:15 08/23/21 05:44 DC 08/23/21 05:57 200 MLS/HR Vancomycin HCl 1000 mg/Sodium Chloride 250 ml @ 250 mls/hr ONCE ONCE IV 08/23/21 05:15 08/23/21 06:14 DC 08/23/21 05:57 250 MLS/HR (FILIPE WARE) Vital Signs/I&O 08/23/21 08/23/21 08/23/21 08/23/21 04:24 05:10 06:07 07:45 Temp 36.7 37.0 Pulse 111 92 85 Resp 16 16 27 B/P (MAP) 161/93 (115) 130/81 131/76 Pulse Ox 100 97 O2 Delivery Room Air Room Air 08/23/21 08:00 Temp 36.8 Pulse 83 Resp 16 B/P (MAP) 128/70 (89) Pulse Ox 96 O2 Delivery Room Air (FILIPE WARE) Vital Signs/I&O Capillary Refill : (KYE FINCH MD) Progress Note : Time: 05:55 Progress Note Discussed goals of care with Robert, he states that he would like to "get healthy" and get back to being able to live a normal life. I discussed with him the seriousness of his condition and advised him that what he has is very life- threatening. He states that with this hospitalization he will not leave AMA. He will need to be admitted for IV antibiotics and repeat surgical consult to likely debride the feet/wounds. He does not have a leukocytosis at this point but he does have an elevated sed rate at 54. X-rays have been reviewed by me and I do not see a whole lot of periosteal elevation at the point of his amputations. Rest of patient's labs have been reviewed, at this point he does not meet sepsis criteria. Antibiotics have been ordered. Patient will be admitted. [address] Lind, request surgical consult [address] Dow, will be happy to consult (KYE FINCH MD) Progress Note : Progress Note Assumed care of the patient at 630. General surgery is willing to consult. Will pursue admission. (FILIPE WARE) Diagnostic Imaging Diagonstic Imaging: Xray Plain Films/CT/US/NM/MRI: chest Comments [facility] [place] NAME: RADHA ROSE Thien [facility] REC#: [id number] PT STATUS: ADM IN : 1980 PHYSICIAN: KYE FINCH MD ADMIT DATE: 08/23/21 Draft Date of Exam:08/23/21 CHEST 1 VIEW, AP/PA ONLY INDICATION: Sepsis COMPARISON: 08/03/2021 Some chronic air trapping and features of COPD are present. There is an equivocal nodular focus in the left upper lobe perhaps partially obscured by the left chest lead. Follow-up PA and lateral radiograph of the chest with repositioning or removal of that lead recommended to exclude a focal infiltrate or mass. There is no failure, effusion or pneumothorax. IMPRESSION: Chronic COPD present. No failure pattern or pleural pathology. Equivocal density left upper chest at the level of the left chest lead, follow-up with lead removal or repositioning recommended as discussed. No other significant finding. Dictated on workstation # [id number] Dict: 08/23/21804 Trans: 08/23/21811 [facility] [id number] Interpreted by: LUIS OWEN Electronically signed by: Reviewed: Reviewed by Me Diagonstic Imaging: Xray Plain Films/CT/US/NM/MRI: other (foot) Comments [facility] [place] NAME: RADHA ROSE [facility] REC#: [id number] PT STATUS: ADM IN : 1980 PHYSICIAN: KYE FINCH MD ADMIT DATE: 08/23/21 Signed Date of Exam:08/23/21 FOOT, BILATERAL, 3 VIEW CLINICAL HISTORY: Prior toe amputation. Evaluate for osteomyelitis. COMPARISON: 08/04/2021. TECHNIQUE: 6 views of the bilateral feet. FINDINGS: Interval amputation is seen at the right 1st through 3rd MTP joints and left 1st and 3rd MTP joints. There is also amputation of the left 2nd toe at the distal diaphysis of the left 2nd metatarsal. No acute fracture is seen in the feet. No erosive osseous changes are visualized to suggest osteomyelitis. Generalized soft tissue edema is present. IMPRESSION: 1. No acute fracture or dislocation in the bilateral feet. No radiographic evidence of acute osteomyelitis. 2. Amputation of the 1st through 3rd digits in both feet. Dictated by: Dictated on workstation # [id number] Dict: 08/23/21805 Trans: 08/23/21809 [id number] Interpreted by: LAURITA MCCANN DO Electronically signed by: LAURITA MCCANN DO 08/23/21809 Reviewed: Reviewed by Me (FILIPE WARE) Departure Communication (Admissions) Time/Spoke to Consulting Phy: 06:[address] Dow (KYE FINCH MD) Time/Spoke to Admitting Phy: 07:15 Dr. Dow agrees to admit the patient with medicine consult Time/Spoke to Consulting Phy: 06:25 Dr. Carlton agrees to consult on the case at 715 (FILIPE WARE) Impression Primary Impression: Sepsis Qualified Codes: A41.9 - Sepsis, unspecified organism Additional Impressions: Wound infection Medical non-compliance Disposition: ADMITTED INPATIENT Condition: Stable Admissions Decision to Admit Reason: Admit from ER (General) Decision to Admit/Date: Aug 23, 2021 Time/Decision to Admit Time: 06:33 (KYE FINCH MD) Decision to Admit Reason: Admit from ER (General) Decision to Admit/Date: Aug 23, 2021 Time/Decision to Admit Time: 06:33 (FILIPE WARE) Departure-Patient Inst. Referrals: NO,LOCAL PHYSICIAN (PCP/Family) Primary Care Physician KYE FINCH MD Aug 23, 2021 05:05 FILIPE WARE Aug 23, 2021 07:13
[2021-08-23] MEDS ORDERED: PIPERACILLIN SODIUM/TAZOBACTAM 4.5 GM in NS (IVPB) 100 ML IV ONE (05:15)
[2021-08-23] MEDS ORDERED: VANCOMYCIN INJECTION 1,000 MG in NS (IVPB) 250 ML IV ONE (05:15)
[2021-08-23 05:27] LABS: BASOPHILS # (AUTO) 0.1 10^3/uL (0.0-0.1); BASOPHILS % (AUTO) 1 % (0-10); EOSINOPHILS # (AUTO) 0.2 10^3/uL (0.0-0.3); EOSINOPHILS % (AUTO) 2 % (0-10); HEMATOCRIT 43 % (40-54); HEMOGLOBIN 14.8 g/dL (13.3-17.7); LYMPHOCYTES # (AUTO) 1.8 10^3/uL (1.0-4.0); LYMPHOCYTES % (AUTO) 29 % (12-44); MEAN CORPUSCULAR HEMOGLOBIN 39 pg (25-34); MEAN CORPUSCULAR HGB CONC 35 g/dL (32-36); MEAN CORPUSCULAR VOLUME 112 fL (80-99); MONOCYTES # (AUTO) 0.5 10^3/uL (0.0-1.0); MONOCYTES % (AUTO) 8 % (0-12); NEUTROPHILS # (AUTO) 3.7 10^3/uL (1.8-7.8); NEUTROPHILS % (AUTO) 59 % (42-75); PLATELET COUNT 320 10^3/uL (130-400); WHITE BLOOD COUNT 6.2 10^3/uL (4.3-11.0)
[2021-08-23 05:39] LABS: BILIRUBIN,URINE NEGATIVE (NEGATIVE); CLARITY,URINE CLEAR; COLOR,URINE YELLOW; GLUCOSE, URINE (UA) NEGATIVE (NEGATIVE); KETONES,URINE NEGATIVE (NEGATIVE); LEUKOCYTE ESTERASE ,URINE NEGATIVE (NEGATIVE); NITRITE,URINE NEGATIVE (NEGATIVE); PROTEIN,URINE NEGATIVE (NEGATIVE)
[2021-08-23 05:39] LABS: ALBUMIN 3.8 GM/DL (3.2-4.5); CHLORIDE 106 MMOL/L (98-107); POTASSIUM 3.6 MMOL/L (3.6-5.0); SODIUM 140 MMOL/L (135-145)
[2021-08-23 05:40] LABS: CALCIUM 9.3 MG/DL (8.5-10.1)
[2021-08-23 05:41] LABS: PROTHROMBIN TIME PATIENT 13.4 SEC (12.2-14.7)
[2021-08-23 05:42] LABS: GLUCOSE 95 MG/DL (70-105)
[2021-08-23 05:43] LABS: BILIRUBIN,TOTAL 0.5 MG/DL (0.1-1.0); CARBON DIOXIDE 20 MMOL/L (21-32)
[2021-08-23 05:45] LABS: ALKALINE PHOSPHATASE 99 U/L (40-136); CREATININE SERUM 0.63 MG/DL (0.60-1.30); ERYTHROCYTE SEDIMENTATION RATE 54 MM/HR (0-15); GFR ESTIMATED 140
[2021-08-23 05:46] LABS: BUN/CREATININE RATIO 3
[2021-08-23 05:46] LABS: BACTERIA,URINE NEGATIVE /HPF; SQUAMOUS EPITHELIAL CELL,UR RARE /HPF
[2021-08-23 05:48] LABS: ALANINE AMINOTRANSFERASE 14 U/L (0-55)
[2021-08-23 08:00] VITALS: BP 128/70
--- NOTE | 2021-08-23 08:10 | Diagnostic Imaging Report ---
CLINICAL HISTORY: Prior toe amputation. Evaluate for osteomyelitis. COMPARISON: 08/04/2021. TECHNIQUE: 6 views of the bilateral feet. FINDINGS: Interval amputation is seen at the right 1st through 3rd MTP joints and left 1st and 3rd MTP joints. There is also amputation of the left 2nd toe at the distal diaphysis of the left 2nd metatarsal. No acute fracture is seen in the feet. No erosive osseous changes are visualized to suggest osteomyelitis. Generalized soft tissue edema is present. IMPRESSION: 1. No acute fracture or dislocation in the bilateral feet. No radiographic evidence of acute osteomyelitis. 2. Amputation of the 1st through 3rd digits in both feet. Dictated by: Dictated on workstation # [id number]
--- NOTE | 2021-08-23 08:13 | Diagnostic Imaging Report ---
INDICATION: Sepsis COMPARISON: 08/03/2021 Some chronic air trapping and features of COPD are present. There is an equivocal nodular focus in the left upper lobe perhaps partially obscured by the left chest lead. Follow-up PA and lateral radiograph of the chest with repositioning or removal of that lead recommended to exclude a focal infiltrate or mass. There is no failure, effusion or pneumothorax. IMPRESSION: Chronic COPD present. No failure pattern or pleural pathology. Equivocal density left upper chest at the level of the left chest lead, follow-up with lead removal or repositioning recommended as discussed. No other significant finding. Dictated by: Dictated on workstation # [id number]
[2021-08-23] MEDS ORDERED: ACETAMINOPHEN 325 MG TABLET PO PRN (08:30)
[2021-08-23] MEDS ORDERED: ONDANSETRON 4 MG/2 ML (SDV) Z0FRAN IVP PRN (08:30)
[2021-08-23] MEDS ORDERED: IBUPROFEN 600 MG (MOTRIN) TAB PO PRN (08:30)
[2021-08-23] MEDS: LACTATED RINGERS 1,000 ML IV SCH ×3 (08:37→19:59)
[2021-08-23] MEDS: fentaNYL INJ 100 MCG/2 ML AMP IVP PRN ×3 (08:37→21:39)
[2021-08-23] MEDS ORDERED: VANCOMYCIN INJECTION 0.1 MG in NS (IVPB) 250 ML IV SCH (08:45)
[2021-08-23] MEDS ORDERED: VANCOMYCIN 750 MG/NS 250 ML IVPB IV NR ×2 (09:00)
[2021-08-23] MEDS: ceFAZolin 2 GM IV Premixed 50 ML IV SCH ×2 (09:19→18:14)
[2021-08-23] MEDS: fentaNYL INJ 100 MCG/2 ML AMP IVP NR ×2 (09:42→13:54)
[2021-08-23] MEDS ORDERED: SIMETHICONE 80 MG (MYLICON) CHEW PO PRN (11:15)
[2021-08-23] MEDS ORDERED: ANTACID SUSP 30 ML UDC (MYLANTA) PO PRN (11:15)
[2021-08-23] MEDS ORDERED: NICOTINE 2 MG LOZENGE (COMMIT) MM PRN (11:15)
[2021-08-23] MEDS ORDERED: diphenhydrAMINE 25 MG TAB (BENADRYL) PO PRN (11:15)
[2021-08-23] MEDS ORDERED: NICOTINE 14 MG (NICODERM) PATCH TD ONE ×2 (11:15→13:57)
[2021-08-23] MEDS ORDERED: polyethylene glycoL POWDER 17 GM (MIRALAX) PACK PO PRN (11:15)
[2021-08-23] MEDS ORDERED: LORazepam 0.5 MG (ATIVAN) TABLET PO PRN (11:15)
--- NOTE | 2021-08-23 11:18 | Consultation - Hospitalist ---
HPI History of Present Illness: HPI/Chief Complaint Alex Ma is a 41 year old male with PMH PAD, DVT, recent bilateral toe amputations, who presented with bilateral foot pain. He has not been changing the dressings on his feet. He has not been taking his medications. He denies fevers and chills. He denies chest pain and shortness of breath. He is feeling better now that he has gotten some pain medicine. Source: patient Exam Limitations: no limitations Date Seen 08/23/21 Attending Physician Jamal Dow MD PCP No,Local Physician Referring Physician Date of Admission Aug 23, 2021 at 07:25 Home Medications & Allergies Home Medications Reviewed patient Home Medication Reconciliation performed by pharmacy medication reconciliations circuit board repair technician and/or nursing. Patients Allergies have been reviewed. Allergies Allergies Coded Allergies No Known Drug Allergies ([id number]/21) He denies allergies to drugs and food, says he has seasonal allergies Past Gfsqvlc-Rsxlel-Beuqdc Hx Patient Social History Tobacco Use?: Yes Tobacco type used: Cigarettes Smoking Status: Current Everyday Smoker Substance use?: No Alcohol Use?: Yes Pt feels they are or have been: No Immunizations Up To Date First/Initial COVID19 Vaccinat: DOESN'T PLAN ON TAKING IT Second COVID19 Vaccination Bear: DOESN'T PLAN ON TAKING IT Tetanus Booster (TDap): More Than 5 Years Hepatitis A: Yes Hepatitis B: Yes Seasonal Allergies Seasonal Allergies: Yes Current Status Advance Directives: No Communicates: Verbally Primary Language: Latvian Preferred Spoken Language: Latvian Is interpretation needed?: No Implanted or Applied Medical D: None Past Medical History Surgeries: Abdominal, Orthopedic Deep Vein Thrombosis Psoriasis Family Medical History No Pertinent Family Hx, Other Conditions/Hx Review of Systems Constitutional: no symptoms reported EENTM: no symptoms reported Respiratory: no symptoms reported Cardiovascular: no symptoms reported Gastrointestinal: no symptoms reported Genitourinary: no symptoms reported Musculoskeletal: no symptoms reported Skin: no symptoms reported Psychiatric/Neurological: No Symptoms Reported Physical Exam Physical Exam Vital Signs Vital Signs - First Documented 08/23/21 04:24 Temp 36.7 Pulse 111 Resp 16 B/P (MAP) 161/93 (115) Pulse Ox 100 O2 Delivery Room Air Capillary Refill : Less Than 3 Seconds Height, Weight, BMI Height: '" Weight: lbs. oz. kg; 25.19 BMI Method: General Appearance: No Apparent Distress, WD/WN HEENT: PERRL/EOMI, Pharynx Normal Neck: Normal Inspection, Supple Respiratory: Lungs Clear, Normal Breath Sounds, No Respiratory Distress Cardiovascular: Regular Rate, Rhythm, No Edema, No Murmur Gastrointestinal: Normal Bowel Sounds, Non Tender, Soft Extremity: Normal Inspection, Non Tender, Pedal Edema Neurologic/Psychiatric: Alert, Normal Mood/Affect Skin: Other (bilateral foot wounds with necrotic debris) Results Results/Procedures Labs Laboratory Tests 08/23/21 05:15 Patient resulted labs reviewed. Imaging: Reviewed Imaging Report Assessment/Plan Assessment and Plan Assess & Plan/Chief Complaint Bilateral foot wounds s/p bilateral toe/foot amputations Peripheral artery disease Bilateral deep vein thrombosis Surgery primary IV antibiotics Will likely need surgical debridement Resume therapeutic anticoagulation once ok with surgery Continue pain regimen Begin bowel regimen Incentive spirometry Thank you for the consult. We will continue to follow as needed. Please contact the hospitalist service with any questions or concerns. Diagnosis/Problems Diagnosis/Problems (1) Wound infection Status: Acute (2) Medical non-compliance Status: Acute (3) PAD (peripheral artery disease) Status: Acute (4) Acute deep vein thrombosis (DVT) of both lower extremities Status: Acute (5) Tobacco abuse Status: Chronic RAMIN FLORES MD Aug 23, 2021 11:18
[2021-08-23 11:49] VITALS: BP 123/60
[2021-08-23] MEDS ORDERED: IBUP-2185 PO (15:42)
[2021-08-23 16:02] VITALS: BP 157/82
[2021-08-23] MEDS: VANCOMYCIN 1 GM/NS 250 ML IVPB IV SCH ×2 (16:58)
[2021-08-23] MEDS: HYDROcodone/APAP 7.5 MG/325 MG (LORTAB, LORCET PLUS) TABLET PO PRN (19:58)
[2021-08-23 19:59] VITALS: BP 145/71
[2021-08-23] MEDS: DOCUSATE SODIUM 100 MG (COLACE) CAP PO SCH ×2 (21:39→21:43)
[2021-08-23] MEDS: SENNA W/DOCUSATE (SENOKOT S) TABLET PO SCH ×2 (21:39→21:43)
--- NOTE | 2021-08-23 21:46 | HISTORY AND PHYSICAL ---
DATE OF SERVICE: HISTORY OF PRESENT ILLNESS: The patient is a 41-year-old male with extensive past medical history including peripheral vascular disease as well as multiple bilateral lower extremity DVTs and also has bilateral lower extremity chronic venous insufficiency. He also does have a longstanding history of noncompliance. He is a lifelong smoker and continues to smoke even though he has had multiple DVTs as well as what appears to be significant history of DVTs causing chronic venous insufficiency as well as what appears to be a Buerger's disease. He underwent a pulse volume recordings of the lower extremities. Ultrasound of the lower extremity arterial system, which did show a significant stenosis. He also has bilateral lower extremity DVTs. He was found to have necrotic bilateral toes 1 through 3 bilaterally, which were amputated and left open. The patient then left against medical advice. He presented approximately a week and half later and the original dressings were still on and these were removed and they appeared to be continued open wounds as well as a superficial infection. Upon examination, the wounds are dirty; however, there does not appear to be significant surrounding redness or erythema or any new necrotic debris. He again has a longstanding history of noncompliance and any further debridement or amputation he would not likely heal or benefit from due to his history of noncompliance. RECOMMENDATIONS: At this time is to proceed with wet to dry dressings of bilateral feet followed by Kerlix wrap on a b.i.d. basis as well as IV antibiotics in hopes of allowing this to heal by secondary intention. It will be remain to be seen if he will be compliant with anticoagulation therapy as well as wound care therapy and cessation of smoking. PAST MEDICAL HISTORY: Peripheral vascular disease, bilateral lower extremity DVTs, chronic venous insufficiency, bilateral lower extremities. PAST SURGICAL HISTORY: Hernia repair, orthopedic procedure. ALLERGIES: No known drug allergies. MEDICATIONS: None. SOCIAL HISTORY: Positive smoke 30 pack years. He does drink alcohol daily as well. VITAL SIGNS: Temperature 37.2, blood pressure 145/71, pulse 72, respirations 16, pulse ox of 97% on room air. REVIEW OF SYSTEMS: Well-nourished male currently in no acute distress. He is not experiencing any shortness of breath or difficulty breathing. No chest pain, palpitations, diaphoresis. No nausea, vomiting, no diarrhea, constipation, no red blood per rectum, no dark tarry stools. No fever, chills, no recent inadvertent weight loss. All other review of systems negative. PHYSICAL EXAMINATION: CHEST: Scattered wheezes bilaterally. HEART: Regular, no murmurs. EXTREMITIES: Bilateral lower extremity edema with a thick pigmented skin along the ankle distribution consistent with a bilateral lower extremity chronic venous insufficiency, likely secondary to a previous deep vein thromboses. HEENT: No scleral icterus. NECK: No cervical lymphadenopathy. ABDOMEN: Soft, nontender, nondistended. SKIN: The open wounds of the bilateral feet appeared to be dirty; however, intact with minimal surrounding redness or erythema as well as minimal fibrinous exudative debris; however, no new areas of necrosis. ASSESSMENT AND PLAN: A 41-year-old male with a history of severe noncompliance with history of multiple bilateral lower extremity DVTs, which resulted in chronic venous insufficiency as well as peripheral vascular disease, status post amputation of bilateral toes 1 through 3 with open wounds. RECOMMENDATIONS: Is to proceed with medical management with wet to dry dressings on a b.i.d. basis to slowly mechanically debride the area and allow for granulation tissue to close the wounds by secondary intention. He is also on multiple different antibiotics. We will consult social sciences department chair as well as internal medicine for continued medical management as well as potential long-term support and compliance. Job ID: [id number] DocumentID: [id number] Dictated Date: 08/23/2021 20:21:59 Nursing Techn Date: 08/23/2021 21:46:41 Dictated By: THO CHARLES MD
[2021-08-24] VITALS (7 sets, daily range): BP systolic 109–146; BP diastolic 68–84
[2021-08-24] MEDS: HYDROcodone/APAP 7.5 MG/325 MG (LORTAB, LORCET PLUS) TABLET PO PRN ×5 (00:55→21:22)
[2021-08-24] MEDS: ceFAZolin 2 GM IV Premixed 50 ML IV SCH ×2 (01:03→09:08)
[2021-08-24] MEDS: fentaNYL INJ 100 MCG/2 ML AMP IVP PRN ×5 (01:42→23:10)
[2021-08-24] MEDS: VANCOMYCIN 1 GM/NS 250 ML IVPB IV SCH ×4 (02:06→09:08)
[2021-08-24] MEDS: LACTATED RINGERS 1,000 ML IV SCH ×4 (04:08→22:07)
[2021-08-24 05:35] LABS: BASOPHILS % (AUTO) 1 % (0-10); EOSINOPHILS # (AUTO) 0.2 10^3/uL (0.0-0.3); EOSINOPHILS % (AUTO) 3 % (0-10); HEMATOCRIT 37 % (40-54); HEMOGLOBIN 12.6 g/dL (13.3-17.7); LYMPHOCYTES # (AUTO) 1.9 10^3/uL (1.0-4.0); LYMPHOCYTES % (AUTO) 28 % (12-44); MEAN CORPUSCULAR HEMOGLOBIN 38 pg (25-34); MEAN CORPUSCULAR HGB CONC 34 g/dL (32-36); MEAN CORPUSCULAR VOLUME 113 fL (80-99); MEAN PLATELET VOLUME 9.5 fL (9.0-12.2); MONOCYTES # (AUTO) 0.6 10^3/uL (0.0-1.0); MONOCYTES % (AUTO) 9 % (0-12); NEUTROPHILS # (AUTO) 3.9 10^3/uL (1.8-7.8); NEUTROPHILS % (AUTO) 59 % (42-75); PLATELET COUNT 265 10^3/uL (130-400); WHITE BLOOD COUNT 6.7 10^3/uL (4.3-11.0)
[2021-08-24 05:43] LABS: CHLORIDE 106 MMOL/L (98-107); POTASSIUM 3.8 MMOL/L (3.6-5.0); SODIUM 137 MMOL/L (135-145)
[2021-08-24 05:44] LABS: CALCIUM 8.3 MG/DL (8.5-10.1)
[2021-08-24 05:45] LABS: GLUCOSE 107 MG/DL (70-105)
[2021-08-24 05:46] LABS: CARBON DIOXIDE 20 MMOL/L (21-32)
[2021-08-24 05:49] LABS: CREATININE SERUM 0.61 MG/DL (0.60-1.30); GFR ESTIMATED 146
[2021-08-24 05:50] LABS: BUN/CREATININE RATIO 3
[2021-08-24] MEDS ORDERED: RIVAROXABAN 15 MG TABLET (XARELTO) PO ONE (08:00)
[2021-08-24] MEDS: SENNA W/DOCUSATE (SENOKOT S) TABLET PO SCH ×2 (09:01→21:21)
[2021-08-24] MEDS: DOCUSATE SODIUM 100 MG (COLACE) CAP PO SCH ×2 (09:01→21:21)
[2021-08-24] MEDS: NICOTINE 14 MG (NICODERM) PATCH TD SCH (09:08)
--- NOTE | 2021-08-24 12:25 | Progress Note - Hospitalist ---
Subjective HPI/CC On Admission Date Seen by Provider: Aug 24, 2021 Time Seen by Provider: 10:45 Alex Ma is a 41 year old male with PMH PAD, DVT, recent bilateral toe amputations, who presented with bilateral foot pain. He has not been changing the dressings on his feet. He has not been taking his medications. He denies fevers and chills. He denies chest pain and shortness of breath. He is feeling better now that he has gotten some pain medicine. Subjective/Events-last exam He is feeling better. His left foot is still painful. He is not having any fevers or chills. He is not having any chest pain or shortness of breath. Focused Exam Lactate Level 08/23/21 05:15: Lactic Acid Level 3.11*H 08/23/21 08:14: Lactic Acid Level 2.07*H 08/23/21 11:25: Lactic Acid Level 1.18 Objective Exam Vital Signs Vital Signs Date Time Temp Pulse Resp B/P (MAP) Pulse Ox O2 Delivery O2 Flow Rate FiO2 08/24/21 08:00 36.6 91 20 137/84 (101) 98 Room Air Capillary Refill : Less Than 3 Seconds General Appearance: No Apparent Distress, WD/WN Respiratory: Lungs Clear, Normal Breath Sounds, No Respiratory Distress Cardiovascular: Regular Rate, Rhythm, No Murmur Gastrointestinal: Normal Bowel Sounds, Non Tender, Soft Extremity: Normal Inspection, Non Tender, No Pedal Edema Neurologic/Psychiatric: Alert, Oriented x3, No Motor/Sensory Deficits, Normal Mood/Affect Skin: Normal Color, Warm/Dry Results/Procedures Lab Laboratory Tests 08/24/21 05:25 Patient resulted labs reviewed. Imaging: Reviewed Imaging Report Assessment/Plan Assessment and Plan Assess & Plan/Chief Complaint Bilateral foot wounds s/p bilateral toe/foot amputations Peripheral artery disease Bilateral deep vein thrombosis Surgery primary Wound cultures with probable Pseudomonas, gram negative phi Stop Vancomycin and Ancef Transition to Cefepime No plans for surgical intervention Resume Xarelto Continue pain regimen Continue bowel regimen Incentive spirometry The hospitalist service will continue to follow as needed. Please contact the bindery production manager physician with any questions or concerns. Diagnosis/Problems Diagnosis/Problems (1) Wound infection Status: Acute (2) Medical non-compliance Status: Acute (3) PAD (peripheral artery disease) Status: Acute (4) Acute deep vein thrombosis (DVT) of both lower extremities Status: Acute (5) Tobacco abuse Status: Chronic RAMIN FLORES MD Aug 24, 2021 12:25
[2021-08-24] MEDS ORDERED: CEFEPIME INJECTION 1,000 MG in WATER (STERILE) FOR INJECTION 10 ML IV NR (12:30)
--- NOTE | 2021-08-24 14:30 | Progress Note ---
Subjective Date Seen by a Provider: Aug 24, 2021 Time Seen by a Provider: 11:00 Subjective/Events-last exam doing well. no complains of some pain. wound dressed wet to dry BID. no fever/chills. WBC normal. Focused Exam Lactate Level 08/23/21 05:15: Lactic Acid Level 3.11*H 08/23/21 08:14: Lactic Acid Level 2.07*H 08/23/21 11:25: Lactic Acid Level 1.18 Objective Exam Vital Signs Date Time Temp Pulse Resp B/P (MAP) Pulse Ox O2 Delivery O2 Flow Rate FiO2 08/24/21 12:00 35.6 92 20 146/84 (104) 98 Room Air 08/24/21 08:00 36.6 91 20 137/84 (101) 98 Room Air 08/24/21 08:00 Room Air 08/24/21 04:00 36.9 91 20 140/84 (102) 97 Room Air 08/24/21 00:00 37.2 88 18 143/82 (102) 99 Room Air 08/23/21 20:00 Room Air 08/23/21 19:59 37.2 72 16 145/71 (95) 97 Room Air 08/23/21 16:02 37.1 92 18 157/82 (107) 97 Room Air 08/23/21 14:47 Room Air I & O 08/24/21 07:00 Intake Total 4082 ml Output Total 4850 ml Balance -768 ml Capillary Refill : Less Than 3 Seconds General Appearance: No Apparent Distress HEENT: PERRL/EOMI Neck: Full Range of Motion Respiratory: Decreased Breath Sounds, Wheezing Cardiovascular: Regular Rate, Rhythm Gastrointestinal: normal bowel sounds, non tender, soft Extremity: Slow Capillary Refill Neurologic/Psychiatric: Alert, Oriented x3 Skin: Normal Color Lymphatic: No Adenopathy Results Lab Laboratory Tests 08/24/21 05:25: White Blood Count 6.7, Red Blood Count 3.29L, Hemoglobin 12.6L, Hematocrit 37L, Mean Corpuscular Volume 113H, Mean Corpuscular Hemoglobin 38H, Mean Corpuscular Hemoglobin Concent 34, Red Cell Distribution Width 12.9, Platelet Count 265, Mean Platelet Volume 9.5, Immature Granulocyte % (Auto) 0, Neutrophils (%) (Auto) 59, Lymphocytes (%) (Auto) 28, Monocytes (%) (Auto) 9, Eosinophils (%) (Auto) 3, Basophils (%) (Auto) 1, Neutrophils # (Auto) 3.9, Lymphocytes # (Auto) 1.9, Monocytes # (Auto) 0.6, Eosinophils # (Auto) 0.2, Basophils # (Auto) 0.0, Immature Granulocyte # (Auto) 0.0, Sodium Level 137, Potassium Level 3.8, Chloride Level 106, Carbon Dioxide Level 20L, Anion Gap 11, Blood Urea Nitrogen < 2L, Creatinine 0.61, Estimat Glomerular Filtration Rate 146, BUN/Creatinine Ratio 3, Glucose Level 107H, Calcium Level 8.3L Microbiology 08/23/21 Gram Stain - Final, Resulted 08/23/21 Wound Culture - Preliminary, Resulted Probable Pseudomonas Gram Negative Bacillus 1 08/23/21 Urine Culture - Final, Complete NO GROWTH Assessment/Plan Assessment/Plan Assess & Plan/Chief Complaint multiple bilateral DVT's, chronic venous insuff, PVD and buerger's dz. extremely non-compliant and continue to smoke/ not take meds. cont wet to dry to allow for closure open wounds by secondary intention. THO CHARLES MD Aug 24, 2021 14:30
[2021-08-24] MEDS: CEFEPIME INJECTION 1,000 MG in WATER (STERILE) FOR INJECTION 10 ML IV SCH ×2 (18:25→23:10)
[2021-08-24] MEDS: RIVAROXABAN 15 MG TABLET (XARELTO) PO SCH (18:25)
[2021-08-25] MEDS: LACTATED RINGERS 1,000 ML IV SCH ×3 (03:35→17:41)
[2021-08-25 03:38] VITALS: BP 116/68
[2021-08-25] MEDS: RIVAROXABAN 15 MG TABLET (XARELTO) PO SCH ×2 (06:16→17:40)
[2021-08-25] MEDS: CEFEPIME INJECTION 1,000 MG in WATER (STERILE) FOR INJECTION 10 ML IV SCH ×4 (06:16→23:40)
[2021-08-25] MEDS: HYDROcodone/APAP 7.5 MG/325 MG (LORTAB, LORCET PLUS) TABLET PO PRN ×3 (06:16→23:36)
[2021-08-25 07:22] VITALS: BP 134/71
[2021-08-25] MEDS: DOCUSATE SODIUM 100 MG (COLACE) CAP PO SCH ×2 (08:27→21:14)
[2021-08-25] MEDS: SENNA W/DOCUSATE (SENOKOT S) TABLET PO SCH ×2 (08:27→21:14)
[2021-08-25] MEDS: NICOTINE 14 MG (NICODERM) PATCH TD SCH (08:28)
[2021-08-25] MEDS: fentaNYL INJ 100 MCG/2 ML AMP IVP PRN ×2 (08:32→17:54)
--- NOTE | 2021-08-25 10:50 | Progress Note - Surgery ---
SUZANNE SWEET 08/25/21 1050: Subjective Date Seen by a Provider: Aug 25, 2021 Time Seen by a Provider: 10:00 Subjective/Events-last exam PT resting comfortably in bed. He denies any pain in both of his feet. Both feet are covered in clean dressings He denies fevers or chills. Review of Systems General: No Chills, No Night Sweats HEENT: No Head Aches, No Visual Changes Pulmonary: No Dyspnea, No Cough Cardiovascular: No: Chest Pain, Palpitations Gastrointestinal: No: Nausea, Vomiting Genitourinary: No Dysuria, No Hematuria Musculoskeletal: No: neck pain, arm pain Neurological: No: Incoordination, Change in speech Focused Exam Lactate Level 08/23/21 05:15: Lactic Acid Level 3.11*H 08/23/21 08:14: Lactic Acid Level 2.07*H 08/23/21 11:25: Lactic Acid Level 1.18 Objective Exam Vital Signs Date Time Temp Pulse Resp B/P (MAP) Pulse Ox O2 Delivery O2 Flow Rate FiO2 08/25/21 07:22 37.4 77 16 134/71 (92) 97 Room Air 08/25/21 03:38 36.2 67 18 116/68 (84) 97 Room Air 08/24/21 23:14 37.0 82 17 109/70 (83) 97 Room Air 08/24/21 19:49 Room Air 08/24/21 19:20 36.4 77 17 126/74 (91) 99 Room Air 08/24/21 15:34 37.4 87 23 118/68 (85) 96 Room Air 08/24/21 12:00 35.6 92 20 146/84 (104) 98 Room Air I & O 08/25/21 06:59 Intake Total 6630 ml Output Total 7080 ml Balance -450 ml Capillary Refill : Less Than 3 Seconds General Appearance: No Apparent Distress HEENT: PERRL/EOMI; No Scleral Icterus (L), No Scleral Icterus (R) Neck: Full Range of Motion, Normal Inspection, Non Tender, Supple Respiratory: Chest Non Tender, No Accessory Muscle Use, No Respiratory Distress, Decreased Breath Sounds Cardiovascular: Regular Rate, Rhythm, No Edema Peripheral Pulses: 2+ Radial Pulses (R), 2+ Radial Pulses (L) Gastrointestinal: normal bowel sounds, non tender, soft Extremity: Non Tender, No Calf Tenderness Neurologic/Psychiatric: Alert, Oriented x3, Normal Mood/Affect Skin: Warm/Dry, Other (venous stasis dermatitis on R and L calf. ) Lymphatic: No Adenopathy (cervical ) Results Lab Microbiology 08/23/21 Gram Stain - Final, Resulted 08/23/21 Wound Culture - Preliminary, Resulted Probable Pseudomonas Gram Negative Bacillus 1 08/23/21 Urine Culture - Final, Complete NO GROWTH 08/23/21 Blood Culture - Preliminary, Resulted No growth Assessment/Plan Assessment/Plan Assessment/Plan multiple bilateral DVT's, chronic venous insuff, PVD and buerger's dz. Patient's dressings will be removed and his feet will be examined tomorrow. All questions answered at this time. He will resume being followed by Dr. Dow on Friday. BULMARO JAVIER DO 08/25/21 1157: Subjective Time Seen by a Provider: 10:12 Subjective/Events-last exam Pt seen and examined, no complaints; just stated he was tired. Review of Systems General: No Chills, No Night Sweats Pulmonary: No Dyspnea, No Cough Cardiovascular: No: Chest Pain, Palpitations Gastrointestinal: No: Nausea, Vomiting Objective Exam General Appearance: No Apparent Distress Respiratory: Chest Non Tender, No Accessory Muscle Use, No Respiratory Distress, Decreased Breath Sounds Cardiovascular: Regular Rate, Rhythm, No Murmur Gastrointestinal: normal bowel sounds, non tender, soft Extremity: Other (both feet are bandaged) Assessment/Plan Assessment/Plan Assessment/Plan Hx of Gangrene and Amputation B/L toes multiple bilateral DVT's, chronic venous insuff, PVD and buerger's dz. Patient's dressings will be removed and his feet will be examined tomorrow. All questions answered at this time. He will resume being followed by Dr. Dow on Friday. Supervisory-Addendum Brief Verification & Attestation Participated in pt care: history, MDM, physical Personally performed: exam, history, MDM, supervision of care Care discussed with: Medical Student Procedures: n/a Verification and Attestation of Medical Student E/M Service A medical student performed and documented this service. I then reviewed and verified all information documented by the medical student and made modifications to such information, when appropriate. I personally performed a physical exam, medical decision making and then discussed any differences between the notes and made revisions as necessary to create one note. Bulmaro Javier , 08/25/21 , 11:57 SUZANNE SWEET Aug 25, 2021 10:50 BULMARO JAVIER DO Aug 25, 2021 11:57
[2021-08-25 11:08] VITALS: BP 110/69
[2021-08-25 16:15] VITALS: BP 122/76
[2021-08-25 20:25] VITALS: BP 117/75
[2021-08-25 23:45] VITALS: BP 131/68
[2021-08-26] MEDS: fentaNYL INJ 100 MCG/2 ML AMP IVP PRN ×3 (02:03→20:02)
[2021-08-26] MEDS: LACTATED RINGERS 1,000 ML IV SCH ×4 (03:56→22:11)
[2021-08-26 04:05] VITALS: BP 119/67
[2021-08-26] MEDS: RIVAROXABAN 15 MG TABLET (XARELTO) PO SCH ×2 (06:39→17:39)
[2021-08-26] MEDS: CEFEPIME INJECTION 1,000 MG in WATER (STERILE) FOR INJECTION 10 ML IV SCH ×4 (06:39→23:49)
[2021-08-26] MEDS: DOCUSATE SODIUM 100 MG (COLACE) CAP PO SCH ×2 (07:42→19:24)
[2021-08-26] MEDS: SENNA W/DOCUSATE (SENOKOT S) TABLET PO SCH ×2 (07:43→19:24)
[2021-08-26] MEDS: NICOTINE 14 MG (NICODERM) PATCH TD SCH (07:52)
[2021-08-26 08:00] VITALS: BP 129/77
[2021-08-26] MEDS: HYDROcodone/APAP 7.5 MG/325 MG (LORTAB, LORCET PLUS) TABLET PO PRN ×3 (09:28→23:49)
[2021-08-26 12:03] VITALS: BP 114/71
--- NOTE | 2021-08-26 14:49 | Progress Note - Surgery ---
Subjective Time Seen by a Provider: 11:22 Subjective/Events-last exam Pt seen and examined, appears comfortable with no new complaints. Review of Systems General: No Chills, No Night Sweats Pulmonary: No Dyspnea, No Cough Cardiovascular: No: Chest Pain, Palpitations Gastrointestinal: No: Nausea, Vomiting, Abdominal Pain Musculoskeletal: foot pain Objective Exam Vital Signs Date Time Temp Pulse Resp B/P (MAP) Pulse Ox O2 Delivery O2 Flow Rate FiO2 08/26/21 12:03 37.0 68 20 114/71 (85) 98 Room Air 08/26/21 08:00 37.2 69 20 129/77 (94) 100 Room Air 08/26/21 08:00 Room Air 08/26/21 04:05 36.2 64 18 119/67 (84) 98 Room Air 08/25/21 23:45 36.8 92 20 131/68 (89) 96 Room Air 08/25/21 20:25 36.6 89 18 117/75 (89) 95 Room Air 08/25/21 20:22 Room Air 08/25/21 16:15 36.6 70 18 122/76 (91) 97 Room Air I & O 08/26/21 07:00 Intake Total 7330 ml Output Total 6230 ml Balance 1100 ml Capillary Refill : Less Than 3 Seconds General Appearance: No Apparent Distress HEENT: PERRL/EOMI; No Scleral Icterus (L), No Scleral Icterus (R) Respiratory: Chest Non Tender, No Accessory Muscle Use, No Respiratory Distress, Decreased Breath Sounds Cardiovascular: Regular Rate, Rhythm, No Murmur Peripheral Pulses: 2+ Radial Pulses (R), 2+ Radial Pulses (L) Gastrointestinal: normal bowel sounds, non tender, soft Extremity: Other (right foot has some black areas and "beefy" red granulation tissue) Neurologic/Psychiatric: Alert, Oriented x3, Normal Mood/Affect Skin: Other (venous stasis dermatitis on R and L calf. ) Lymphatic: No Adenopathy (cervical ) Results Lab Microbiology 08/23/21 Gram Stain - Final, Resulted 08/23/21 Wound Culture - Preliminary, Resulted Pseudomonas putida Escherichia coli 08/23/21 Urine Culture - Final, Complete NO GROWTH 08/23/21 Blood Culture - Preliminary, Resulted No growth Assessment/Plan Assessment/Plan Assessment/Plan Hx of Gangrene and Amputation B/L toes multiple bilateral DVT's, chronic venous insuff, PVD and buerger's dz. Patient may need more debridement; will allow Dr. Dow to assess and take to surgery if needed. ALLEY LESTER DO Aug 26, 2021 14:49
[2021-08-26 15:51] VITALS: BP 120/66
[2021-08-26 19:42] VITALS: BP 124/63
[2021-08-27 00:01] VITALS: BP 119/71
[2021-08-27] MEDS: fentaNYL INJ 100 MCG/2 ML AMP IVP PRN ×3 (03:33→20:25)
[2021-08-27] MEDS: LACTATED RINGERS 1,000 ML IV SCH ×3 (03:33→17:19)
[2021-08-27] MEDS: CEFEPIME INJECTION 1,000 MG in WATER (STERILE) FOR INJECTION 10 ML IV SCH ×4 (05:57→23:43)
[2021-08-27] MEDS: RIVAROXABAN 15 MG TABLET (XARELTO) PO SCH ×2 (05:57→18:44)
[2021-08-27 08:00] VITALS: BP 111/57
[2021-08-27] MEDS: SENNA W/DOCUSATE (SENOKOT S) TABLET PO SCH ×2 (08:21→19:49)
[2021-08-27] MEDS: HYDROcodone/APAP 7.5 MG/325 MG (LORTAB, LORCET PLUS) TABLET PO PRN ×2 (08:21→17:21)
[2021-08-27] MEDS: DOCUSATE SODIUM 100 MG (COLACE) CAP PO SCH ×3 (08:21→19:49)
[2021-08-27] MEDS: NICOTINE 14 MG (NICODERM) PATCH TD SCH (08:21)
[2021-08-27 16:12] VITALS: BP 128/70
--- NOTE | 2021-08-27 19:26 | Progress Note ---
Subjective Date Seen by a Provider: Aug 27, 2021 Time Seen by a Provider: 19:00 Subjective/Events-last exam doing ok. no fever/chills. pain controlled. wounds dressed/dry. Objective Exam Vital Signs Date Time Temp Pulse Resp B/P (MAP) Pulse Ox O2 Delivery O2 Flow Rate FiO2 08/27/21 16:12 36.5 76 18 128/70 (89) 98 Room Air 08/27/21 08:00 Room Air 08/27/21 08:00 35.9 71 17 111/57 (75) 98 Room Air 08/27/21 00:01 36.9 65 14 119/71 (87) 99 Room Air 08/26/21 20:00 Room Air 08/26/21 19:42 36.2 77 18 124/63 (83) 99 Room Air I & O 08/27/21 07:00 Intake Total 9668 ml Output Total 8850 ml Balance 818 ml Capillary Refill : Less Than 3 Seconds General Appearance: No Apparent Distress HEENT: PERRL/EOMI Neck: Full Range of Motion Respiratory: Wheezing Cardiovascular: Regular Rate, Rhythm Gastrointestinal: normal bowel sounds, non tender, soft Extremity: Slow Capillary Refill Neurologic/Psychiatric: Alert, Oriented x3 Skin: Normal Color Lymphatic: No Adenopathy Results Lab Microbiology 08/23/21 Gram Stain - Final, Complete 08/23/21 Wound Culture - Final, Complete Pseudomonas putida Escherichia coli 08/23/21 Urine Culture - Final, Complete NO GROWTH 08/23/21 Blood Culture - Preliminary, Resulted No growth Assessment/Plan Assessment/Plan Assess & Plan/Chief Complaint multiple bilateral DVT's, chronic venous insuff, PVD and buerger's dz. extremely non-compliant and continue to smoke/ not take meds. cont wet to dry to allow for closure open wounds by secondary intention. will re-eval wounds in am. THO CHARLES MD Aug 27, 2021 19:26
[2021-08-27 23:31] VITALS: BP 117/74
[2021-08-28] MEDS: fentaNYL INJ 100 MCG/2 ML AMP IVP PRN ×5 (00:19→17:22)
[2021-08-28] MEDS: LACTATED RINGERS 1,000 ML IV SCH ×4 (00:19→19:50)
[2021-08-28] MEDS: RIVAROXABAN 15 MG TABLET (XARELTO) PO SCH ×2 (05:09→19:50)
[2021-08-28] MEDS: CEFEPIME INJECTION 1,000 MG in WATER (STERILE) FOR INJECTION 10 ML IV SCH ×2 (05:09→11:59)
[2021-08-28 07:28] VITALS: BP 126/71
--- NOTE | 2021-08-28 08:14 | Physician Query Clarification ---
PQ-Uncertain Diagnosis Admission/Discharge Admission Date: Aug 23, 2021 at 07:25 Discharge Date: Dr. Charles, The medical record reflects the following clinical scenario: History/Risk Factors: amputation stumps infection Clinical Findings: T 36.7, P 111, R 27, WBC 6.2, Lactic acid 3.11 Treatment: IV Cefepime, dressing changes Question: Is sepsis a clinically valid diagnosis? Sepsis was documented in the ER record with no further documentation in the medical record. Please document a response in Progress Note or Discharge Summary. 1. Yes, clinically valid, condition resolved. 2. No, condition ruled out. 3. Other, with explanation of clinical findings. 4. Undetermined, no explanation for clinical findings. PHYSICIAN RESPONSE Diagnosis clinically valid: Yes, Conditon resolved Please remember a lack of response to the above will prompt a phone page by CDI/Coding staff. In responding to this query, please exercise your independent professional judgm ent. The purpose of this communication is to more accurately reflect the complexity of your patients condition. The fact that a question is asked does not imply that any particular answer is desired or expected. Thank you for your timely response to this clarification. Requestors name: Maya THIS PHYSICIAN QUERY FORM IS A PERMANENT PART OF THE MEDICAL RECORD MAYA GALEANO Aug 28, 2021 08:14 THO CHARLES MD Aug 28, 2021 14:24
[2021-08-28] MEDS: DOCUSATE SODIUM 100 MG (COLACE) CAP PO SCH ×2 (08:31→21:18)
[2021-08-28] MEDS: SENNA W/DOCUSATE (SENOKOT S) TABLET PO SCH ×2 (08:31→21:18)
[2021-08-28] MEDS: NICOTINE 14 MG (NICODERM) PATCH TD SCH (08:31)
[2021-08-28] MEDS: HYDROcodone/APAP 7.5 MG/325 MG (LORTAB, LORCET PLUS) TABLET PO PRN ×4 (10:32→23:45)
[2021-08-28] MEDS ORDERED: LEVO750T39 PO (14:15)
[2021-08-28] MEDS ORDERED: TRAM-42 PO (14:15)
--- NOTE | 2021-08-28 14:16 | Discharge Inst-Surgical ---
D/C Lap Instructions-ARACELI New, Converted, or Re-Newed RX: RX on Chart Follow Up Appt in 2 weeks Activity as tolerated Regular Diet Symptoms to Report: Fever over 101 degree F, Nausea/Vomiting Infection Signs and Symptoms to report: Increased redness, Foul odor of wound, Increased drainage Bathing instructions: May shower Operative Area Clean/Dry; Keep incision clean/dry If any problems/questions: Contact your physician or go to Emergency Room THO CHARLES MD Aug 28, 2021 14:16
--- NOTE | 2021-08-28 14:18 | Progress Note ---
Subjective Date Seen by a Provider: Aug 28, 2021 Time Seen by a Provider: 14:00 Subjective/Events-last exam doing ok. wound granulating in well. no systemic sx, no fever/chills. Objective Exam Vital Signs Date Time Temp Pulse Resp B/P (MAP) Pulse Ox O2 Delivery O2 Flow Rate FiO2 08/28/21 08:00 96 Room Air 08/28/21 07:28 36.2 72 18 126/71 (89) 96 Room Air 08/27/21 23:31 37.0 77 18 117/74 (88) 100 Room Air 08/27/21 19:45 Room Air 08/27/21 16:12 36.5 76 18 128/70 (89) 98 Room Air I & O 08/28/21 07:00 Intake Total 6225 ml Output Total 8150 ml Balance -1925 ml Capillary Refill : Less Than 3 Seconds General Appearance: No Apparent Distress HEENT: PERRL/EOMI Neck: Full Range of Motion Respiratory: Decreased Breath Sounds, Wheezing Cardiovascular: Regular Rate, Rhythm Gastrointestinal: normal bowel sounds, non tender, soft Extremity: Normal Capillary Refill Neurologic/Psychiatric: Alert, Oriented x3 Skin: Normal Color Lymphatic: No Adenopathy Results Lab Microbiology 08/23/21 Gram Stain - Final, Complete 08/23/21 Wound Culture - Final, Complete Pseudomonas putida Escherichia coli 08/23/21 Urine Culture - Final, Complete NO GROWTH 08/23/21 Blood Culture - Final, Complete No growth Assessment/Plan Assessment/Plan Assess & Plan/Chief Complaint multiple bilateral DVT's, chronic venous insuff, PVD and buerger's dz. extremely non-compliant and continue to smoke/ not take meds. cont wet to dry to allow for closure open wounds by secondary intention. SS consult for supplies. PO abx. THO CHARLES MD Aug 28, 2021 14:18
[2021-08-28 15:44] VITALS: BP 123/74
[2021-08-28 22:54] VITALS: BP 119/58
[2021-08-29] VITALS: BP 119/58
[2021-08-29] MEDS: fentaNYL INJ 100 MCG/2 ML AMP IVP PRN ×3 (04:46→14:50)
[2021-08-29] MEDS: LACTATED RINGERS 1,000 ML IV SCH ×2 (04:46→11:00)
[2021-08-29] MEDS: RIVAROXABAN 15 MG TABLET (XARELTO) PO SCH (06:17)
[2021-08-29] MEDS: HYDROcodone/APAP 7.5 MG/325 MG (LORTAB, LORCET PLUS) TABLET PO PRN ×2 (06:26→11:44)
[2021-08-29 08:05] VITALS: BP 123/62
[2021-08-29] MEDS: DOCUSATE SODIUM 100 MG (COLACE) CAP PO SCH (09:02)
[2021-08-29] MEDS: NICOTINE 14 MG (NICODERM) PATCH TD SCH (09:03)
[2021-08-29] MEDS: SENNA W/DOCUSATE (SENOKOT S) TABLET PO SCH (09:03)
[2021-08-29] MEDS ORDERED: RIVA15TA2 PO ×2 (13:04→13:21)
[2021-08-29] MEDS ORDERED: RIVA20TA PO (13:21)
[2021-08-29 16:00] VITALS: BP 127/56
[2021-08-29 17:13] VITALS: BP 127/56
== END 2021-08-29 17:55 | disposition home or self-care (01) | DRG 564 ==
LOC: EDUNIT# 04:23 → ER 04:25 → 4TH 07:25
PROVIDERS: ADMIT Surgery; ATTEND Surgery
DX: T87.44 Infection of amputation stump, left lower extremity (principal); A41.9 Sepsis, unspecified organism; T87.43 Infection of amputation stump, right lower extremity; Z91.19 Patient's noncompliance with other medical treatment and regimen; I73.9 Peripheral vascular disease, unspecified; Z86.718 Personal history of other venous thrombosis and embolism; I87.2 Venous insufficiency (chronic) (peripheral); I73.1 Thromboangiitis obliterans [Buerger's disease]; F17.210 Nicotine dependence, cigarettes, uncomplicated
CPT/HCPCS: 36415; 71045; 80048; 80053; 81000; 83605; 85025; 85610; 85652; 85730; 86141; 87040; 87070; 87077; 87088; 87186; 87205; 94664; 96365; 96367; 96368

== ENCOUNTER 2021-09-09 16:05 | Emergency (ER) | payer OTHER ==
[~2021-09-09] VITALS: Ht 182.9 cm; Wt 88.5 kg
[~2021-09-09 16:05] MED LIST changes: +IBUP-2185 PO; +LEVO750T39 PO; +TRAM-42 PO
--- NOTE | 2021-09-09 16:54 | Diagnostic Imaging Report ---
INDICATION: Sepsis. FINDINGS: There is no focal consolidation. There is no failure, effusion or pneumothorax. There is no free air beneath the diaphragms. IMPRESSION: No acute appearing abnormality. Dictated by: Dictated on workstation # [id number]
[2021-09-09 17:02] LABS: BASOPHILS % (AUTO) 1 % (0-10); EOSINOPHILS # (AUTO) 0.3 10^3/uL (0.0-0.3); EOSINOPHILS % (AUTO) 3 % (0-10); HEMATOCRIT 44 % (40-54); HEMOGLOBIN 15.4 g/dL (13.3-17.7); LYMPHOCYTES # (AUTO) 1.5 10^3/uL (1.0-4.0); LYMPHOCYTES % (AUTO) 19 % (12-44); MEAN CORPUSCULAR HEMOGLOBIN 37 pg (25-34); MEAN CORPUSCULAR HGB CONC 35 g/dL (32-36); MEAN CORPUSCULAR VOLUME 106 fL (80-99); MEAN PLATELET VOLUME 9.2 fL (9.0-12.2); MONOCYTES # (AUTO) 0.5 10^3/uL (0.0-1.0); MONOCYTES % (AUTO) 6 % (0-12); NEUTROPHILS # (AUTO) 5.7 10^3/uL (1.8-7.8); NEUTROPHILS % (AUTO) 71 % (42-75); PLATELET COUNT 319 10^3/uL (130-400)
--- NOTE | 2021-09-09 17:02 | ED Lower Extremity ---
General Chief Complaint: Lower Extremity Stated Complaint: SOA/FOOT BLEED History of Present Illness Date Seen by Provider: Sep 09, 2021 Time Seen by Provider: 16:35 Initial Comments 41-year-old male presents via EMS for bilateral foot pain, he had amputation of his 1st through 3rd toes, bilat feet [address] Gonzalez, at this facility. He has been re-admitted for debilitated state and has not had the dressings changed since d/c. He reports that his family is unable to do the dressing changes and home health is not been to his house. He is non-compliant with his management and continues to smoke, although he has significant peripheral vascular disease. He is on Levaquin orally and Xarelto. Pain/Injury Location: bilateral foot Allergies and Home Medications Allergies Coded Allergies: No Known Drug Allergies (Unverified , 08/04/21) He denies allergies to drugs and food, says he has seasonal allergies Patient Home Medication List Home Medication List Reviewed: Yes Acetaminophen (Tylenol Extra Strength) 500 Mg Tablet, 1,000 MG PO Q8H PRN for PAIN-MILD (1-4), (Reported) Entered as Reported by: KIERA DELACRUZ on 08/06/21 0831 Ibuprofen (Ibuprofen) 200 Mg Capsule, 400 MG PO Q8H PRN for PAIN-MILD (1-4), (Reported) Entered as Reported by: JO DAVISON on 08/23/21 1542 Levofloxacin (Levofloxacin) 750 Mg Tablet, 750 MG PO DAILY Prescribed by: THO DOW on 08/28/21 1415 Rivaroxaban (Xarelto Tablet) 15 Mg Tablet, 15 MG PO BID@0700,1900 Prescribed by: LUCY MOLINA on 08/29/21 1321 Rivaroxaban (Xarelto) 20 Mg Tablet, 20 MG PO DAILY Prescribed by: LUCY MOLINA on 08/29/21 1321 Tramadol HCl (Ultram) 50 Mg Tablet, 50 MG PO Q4H Prescribed by: THO DOW on 08/28/21 1415 Review of Systems Constitutional: no symptoms reported, see HPI Cardiovascular: no symptoms reported, see HPI; No chest pain Gastrointestinal: no symptoms reported, see HPI Skin: see HPI, other (Bilateral feet) All Other Systems Reviewed Negative Unless Noted: Yes Past Pgqnrbe-Gjdtum-Vbnucq Hx Immunizations Up To Date First/Initial COVID19 Vaccinat: DOESN'T PLAN ON TAKING IT Second COVID19 Vaccination Bear: DOESN'T PLAN ON TAKING IT Third COVID19 Vaccination Date: DOESN'T PLAN ON TAKING IT Seasonal Allergies Seasonal Allergies: Yes Past Medical History Surgery/Hospitalization HX: DVT RIGHT LEG, SMOKER, ETOH ABUSE, HERNIA SURGERY, VASECTOMY 2002, TEETH ALL SURGICALLY REMOVED Surgeries: No Abdominal, Orthopedic Respiratory: No Cardiac: Yes Deep Vein Thrombosis Neurological: No Genitourinary: No Musculoskeletal: No Endocrine: No Cancer: No Integumentary: Yes Psoriasis Family Medical History Reviewed Nursing Family Hx No Pertinent Family Hx, Other Conditions/Hx Physical Exam Vital Signs Vital Signs - First Documented 09/09/21 16:06 Temp 36.6 Pulse 101 Resp 16 B/P (MAP) 116/82 (93) Pulse Ox 99 O2 Delivery Room Air Capillary Refill : Height, Weight, BMI Height: '" Weight: lbs. oz. kg; 25.19 BMI Method: General Appearance: WD/WN, no apparent distress Cardiovascular: normal peripheral pulses, regular rate, rhythm, tachycardia Respiratory: chest non-tender, lungs clear Gastrointestinal: normal bowel sounds, non tender, soft Feet: bilateral foot pain, bilateral foot soft tissue tenderness, bilateral foot other (amputations to 1-3 toes bilat feet. Healing by secondary intentions. No active bleeding. ) Neurologic/Psychiatric: no motor/sensory deficits, alert, normal mood/affect, oriented x 3 Skin: normal color, warm/dry Progress/Results/Core Measures Results/Orders Lab Results Laboratory Tests Test 09/09/21 16:39 09/09/21 17:50 09/09/21 19:00 Range/Units White Blood Count 8.0 4.3-11.0 10^3/uL Red Blood Count 4.18 L 4.30-5.52 10^6/uL Hemoglobin 15.4 13.3-17.7 g/dL Hematocrit 44 40-54 % Mean Corpuscular Volume 106 H 80-99 fL Mean Corpuscular Hemoglobin 37 H 25-34 pg Mean Corpuscular Hemoglobin Concent 35 32-36 g/dL Red Cell Distribution Width 12.9 10.0-14.5 % Platelet Count 319 130-400 10^3/uL Mean Platelet Volume 9.2 9.0-12.2 fL Immature Granulocyte % (Auto) 0 % Neutrophils (%) (Auto) 71 42-75 % Lymphocytes (%) (Auto) 19 12-44 % Monocytes (%) (Auto) 6 0-12 % Eosinophils (%) (Auto) 3 0-10 % Basophils (%) (Auto) 1 0-10 % Neutrophils # (Auto) 5.7 1.8-7.8 10^3/uL Lymphocytes # (Auto) 1.5 1.0-4.0 10^3/uL Monocytes # (Auto) 0.5 0.0-1.0 10^3/uL Eosinophils # (Auto) 0.3 0.0-0.3 10^3/uL Basophils # (Auto) 0.0 0.0-0.1 10^3/uL Immature Granulocyte # (Auto) 0.0 0.0-0.1 10^3/uL Prothrombin Time 41.4 H 12.2-14.7 SEC INR Comment 4.3 H 0.8-1.4 Activated Partial Thromboplast Time 54 H 24-35 SEC Sodium Level 135 135-145 MMOL/L Potassium Level 3.9 3.6-5.0 MMOL/L Chloride Level 101 98-107 MMOL/L Carbon Dioxide Level 18 L 21-32 MMOL/L Anion Gap 16 H 5-14 MMOL/L Blood Urea Nitrogen 5 L 7-18 MG/DL Creatinine 0.69 0.60-1.30 MG/DL Estimat Glomerular Filtration Rate 126 BUN/Creatinine Ratio 7 Glucose Level 103 70-105 MG/DL Lactic Acid Level 3.04 *H 1.71 0.50-2.00 MMOL/L Calcium Level 9.4 8.5-10.1 MG/DL Corrected Calcium 9.3 8.5-10.1 MG/DL Total Bilirubin 0.7 0.1-1.0 MG/DL Aspartate Amino Transf (AST/SGOT) 24 5-34 U/L Alanine Aminotransferase (ALT/SGPT) 23 0-55 U/L Alkaline Phosphatase 116 40-136 U/L Total Protein 7.5 6.4-8.2 GM/DL Albumin 4.1 3.2-4.5 GM/DL Smear Scan SCANNING Urine Color YELLOW Urine Clarity CLEAR Urine pH 6.5 5-9 Urine Specific [place] 1.020 1.016-1.022 Urine Protein NEGATIVE NEGATIVE Urine Glucose (UA) NEGATIVE NEGATIVE Urine Ketones NEGATIVE NEGATIVE Urine Nitrite NEGATIVE NEGATIVE Urine Bilirubin NEGATIVE NEGATIVE Urine Urobilinogen 0.2 < = 1.0 MG/DL Urine Leukocyte Esterase NEGATIVE NEGATIVE Urine RBC (Auto) TRACE-I H NEGATIVE Urine RBC 0-2 /HPF Urine WBC NONE /HPF Urine Squamous Epithelial Cells 0-2 /HPF Urine Crystals NONE /LPF Urine Bacteria NEGATIVE /HPF Urine Casts NONE /LPF Urine Mucus NEGATIVE /LPF Urine Culture Indicated CULTURE PENDING Urine Opiates Screen POSITIVE H NEGATIVE Urine Oxycodone Screen NEGATIVE NEGATIVE Urine Methadone Screen NEGATIVE NEGATIVE Urine Propoxyphene Screen NEGATIVE NEGATIVE Urine Barbiturates Screen NEGATIVE NEGATIVE Ur Tricyclic Antidepressants Screen NEGATIVE NEGATIVE Urine Phencyclidine Screen NEGATIVE NEGATIVE Urine Amphetamines Screen NEGATIVE NEGATIVE Urine Methamphetamines Screen NEGATIVE NEGATIVE Urine Benzodiazepines Screen NEGATIVE NEGATIVE Urine Cocaine Screen NEGATIVE NEGATIVE Urine Cannabinoids Screen NEGATIVE NEGATIVE My Orders Orders - ULISES ARNOLD Cbc With Automated Diff (09/09/21 16:20) Comprehensive Metabolic Panel (09/09/21 16:20) Blood Culture (09/09/21 16:20) Urinalysis (09/09/21 16:20) Urine Culture (09/09/21 16:20) Protime With Inr (09/09/21 16:20) Partial Thromboplastin Time (09/09/21 16:20) Chest 1 View, Ap/Pa Only (09/09/21 16:20) Ed Iv/Invasive Line Start (09/09/21 16:20) Lactic Acid Analyzer (09/09/21 16:20) Ed Iv/Invasive Line Start (09/09/21 17:30) Ns Iv 1000 Ml (Sodium Chloride 0.9%) (09/09/21 17:30) Drug Screen Stat (Urine) (09/09/21 18:08) Ed Iv/Invasive Line Start (09/09/21 18:27) Ns Iv 1000 Ml (Sodium Chloride 0.9%) (09/09/21 18:30) Vital Signs/I&O 09/09/21 16:06 Temp 36.6 Pulse 101 Resp 16 B/P (MAP) 116/82 (93) Pulse Ox 99 O2 Delivery Room Air Progress Progress Note : Time: 16:35 Progress Note Patient seen and evaluated, will obtain labs. Dressings partially removed, then soaked to remove final layers. 1730 Lactic 3.04, he is not hypotensive, febrile or tachy, will give NS 2 L per IV. 1829 dressings continue to be removed in layers, stressed to patient the importance of changing them, as prescribed by Dr. Dow. 1930 dressings removed, new wet to dry dressings placed. No active drainage or foul smell from wounds. Thoroughly irrigated with sterile saline. Lactic 1.71 1950 discharge instructions and return precautions reviewed with the patient. All questions answered. Diagnostic Imaging Diagonstic Imaging: Xray Plain Films/CT/US/NM/MRI: chest Comments NAME: RADHA ROSE [facility] REC#: [id number] PT STATUS: REG ER : 1980 PHYSICIAN: ULISES ARNOLD ADMIT DATE: 09/09/21/ER Signed Date of Exam:09/09/21 CHEST 1 VIEW, AP/PA ONLY INDICATION: Sepsis. FINDINGS: There is no focal consolidation. There is no failure, effusion or pneumothorax. There is no free air beneath the diaphragms. IMPRESSION: No acute appearing abnormality. Dictated by: Dictated on workstation # [id number] Dict: 09/09/211649 Trans: 09/09/211651 [facility] [id number] Interpreted by: LUIS OWEN Electronically signed by: LUIS OWEN 09/09/211651 Departure Impression Primary Impression: Peripheral vascular disease Additional Impressions: Amputation of toe of left foot Amputation of toe of right foot Disposition: 01 HOME, SELF-CARE Condition: Stable Departure-Patient Inst. Decision time for Depature: 19:45 Referrals: CHASE GONZALEZ TAKAAKI MD ,LOCAL PHYSICIAN (PCP) Primary Care Physician Patient Instructions: Wound Care (DC) Add. Discharge Instructions: Continue taking your antibiotics as prescribed. Dressing change twice a day as prescribed by Dr. DOW. Follow-up with home health. Call Dr. DOW's office for follow-up. Return to the emergency department for new, urgent healthcare needs. All discharge instructions reviewed with patient and/or family. Voiced understanding. Copy Copies To 1: THO DOW MD, AMY ARNP Sep 09, 2021 17:02
[2021-09-09 17:11] LABS: SMEAR SCAN COMMENT SCANNING
[2021-09-09 17:15] LABS: ALBUMIN 4.1 GM/DL (3.2-4.5); INR 4.3 (0.8-1.4); POTASSIUM 3.9 MMOL/L (3.6-5.0); PROTHROMBIN TIME PATIENT 41.4 SEC (12.2-14.7)
[2021-09-09 17:16] LABS: CALCIUM 9.4 MG/DL (8.5-10.1)
[2021-09-09 17:17] LABS: TOTAL PROTEIN 7.5 GM/DL (6.4-8.2)
[2021-09-09 17:19] LABS: BILIRUBIN,TOTAL 0.7 MG/DL (0.1-1.0)
[2021-09-09 17:21] LABS: CREATININE SERUM 0.69 MG/DL (0.60-1.30)
[2021-09-09] MEDS ORDERED: NS IV 1000 ML 1,000 ML IV SCH ×2 (17:30→18:30)
[2021-09-09 18:02] LABS: BILIRUBIN,URINE NEGATIVE (NEGATIVE); CLARITY,URINE CLEAR; COLOR,URINE YELLOW; GLUCOSE, URINE (UA) NEGATIVE (NEGATIVE); KETONES,URINE NEGATIVE (NEGATIVE); LEUKOCYTE ESTERASE ,URINE NEGATIVE (NEGATIVE); NITRITE,URINE NEGATIVE (NEGATIVE); PH,URINE 6.5 (5-9); PROTEIN,URINE NEGATIVE (NEGATIVE)
[2021-09-09 18:09] LABS: BACTERIA,URINE NEGATIVE /HPF; RBC,URINE 0-2 /HPF; SQUAMOUS EPITHELIAL CELL,UR 0-2 /HPF
[2021-09-09 18:25] LABS: AMPHETAMINE SCREEN, URINE NEGATIVE (NEGATIVE); BARBITURATE SCREEN URINE NEGATIVE (NEGATIVE); BENZODIAZEPINES SCREEN URINE NEGATIVE (NEGATIVE); CANNABINOID SCREEN, URINE NEGATIVE (NEGATIVE); COCAINE SCREEN URINE NEGATIVE (NEGATIVE); METHADONE STAT NEGATIVE (NEGATIVE); METHAMPHETAMINE SCREEN URINE S NEGATIVE (NEGATIVE); OPIATE SCREEN URINE POSITIVE (NEGATIVE); OXYCODONE STAT NEGATIVE (NEGATIVE); PROPOXYPHENE STAT NEGATIVE (NEGATIVE); TRICYCLIC ANTIDEPRESSANTS SCRE NEGATIVE (NEGATIVE)
[2021-09-09 20:20] VITALS: BP 125/79
== END 2021-09-09 20:20 | disposition home or self-care (01) ==
LOC: ER 16:05 → EDUNIT# 16:12 → ER 20:20
DX: I73.9 Peripheral vascular disease, unspecified (principal); R00.0 Tachycardia, unspecified; Z89.421 Acquired absence of other right toe(s); Z89.422 Acquired absence of other left toe(s); Z86.718 Personal history of other venous thrombosis and embolism; Z79.01 Long term (current) use of anticoagulants
CPT/HCPCS: 36415; 71045; 80053; 80306; 81000; 83605; 85025; 85610; 85730; 87040; 87088

== ENCOUNTER 2021-10-19 12:45 | Emergency (ER) | payer SELFPAY ==
[~2021-10-19] VITALS: Ht 182 cm; Wt 92.0 kg
[2021-10-19] MEDS ORDERED: RIVAROXABAN 15 MG TABLET (XARELTO) PO ONE (13:15)
[2021-10-19 13:18] LABS: BASOPHILS % (AUTO) 1 % (0-10); EOSINOPHILS # (AUTO) 0.2 10^3/uL (0.0-0.3); EOSINOPHILS % (AUTO) 4 % (0-10); HEMATOCRIT 45 % (40-54); HEMOGLOBIN 15.4 g/dL (13.3-17.7); LYMPHOCYTES # (AUTO) 1.3 10^3/uL (1.0-4.0); LYMPHOCYTES % (AUTO) 25 % (12-44); MEAN CORPUSCULAR HEMOGLOBIN 37 pg (25-34); MEAN CORPUSCULAR HGB CONC 34 g/dL (32-36); MEAN CORPUSCULAR VOLUME 109 fL (80-99); MONOCYTES # (AUTO) 0.4 10^3/uL (0.0-1.0); MONOCYTES % (AUTO) 7 % (0-12); NEUTROPHILS # (AUTO) 3.2 10^3/uL (1.8-7.8); NEUTROPHILS % (AUTO) 63 % (42-75); PLATELET COUNT 155 10^3/uL (130-400); WHITE BLOOD COUNT 5.1 10^3/uL (4.3-11.0)
[2021-10-19 13:31] LABS: ALBUMIN 3.7 GM/DL (3.2-4.5)
[2021-10-19 13:32] LABS: POTASSIUM 3.8 MMOL/L (3.6-5.0)
[2021-10-19 13:33] LABS: CALCIUM 8.9 MG/DL (8.5-10.1)
[2021-10-19 13:34] LABS: TOTAL PROTEIN 6.7 GM/DL (6.4-8.2)
[2021-10-19 13:36] LABS: BILIRUBIN,TOTAL 0.5 MG/DL (0.1-1.0)
[2021-10-19 13:38] LABS: CREATININE SERUM 0.68 MG/DL (0.60-1.30)
--- NOTE | 2021-10-19 13:39 | ED Lower Extremity ---
General Chief Complaint: Lower Extremity Stated Complaint: WOUND Nursing Triage Note: ARRIVED VIA AMBULANCE FROM [facility]. STATES THEY WERE NOT ABLE TO FEEL A PULSE IN HIS FEET BILAT. PT STATES THIS IS NOTHING NEW. BILAT LEGS DISCOLORED AND PT STATES THIS IS ALSO NOT NEW. Source: patient Exam Limitations: no limitations History of Present Illness Date Seen by Provider: Oct 19, 2021 Time Seen by Provider: 13:36 Initial Comments ER by EMS from [facility] with reports of severe peripheral arterial disease. He presented there today for follow-up trying to get short-term disability. History of recent amputation of toes on bilateral feet. That was in July of this year. He was found to have DVT bilateral lower extremities as well as severe peripheral arterial disease bilateral lower extremities. The wound dressings were changed and he was referred to the emergency room as they were unable to find pulses in either foot. On arrival to ER the patient adamantly denies any pain at all in either lower extremity, states this is normal for them. He has been off of his Xarelto for 50 days. Denies fevers or chills. Onset: other Severity: moderate Pain/Injury Location: bilateral leg Allergies and Home Medications Allergies Coded Allergies: No Known Drug Allergies (Unverified , 08/04/21) He denies allergies to drugs and food, says he has seasonal allergies Patient Home Medication List Home Medication List Reviewed: Yes Acetaminophen (Tylenol Extra Strength) 500 Mg Tablet, 1,000 MG PO Q8H PRN for PAIN-MILD (1-4), (Reported) Entered as Reported by: KIERA DELACRUZ on 08/06/21 0831 Ibuprofen (Ibuprofen) 200 Mg Capsule, 400 MG PO Q8H PRN for PAIN-MILD (1-4), (Reported) Entered as Reported by: JO DAVISON on 08/23/21 1542 Levofloxacin (Levofloxacin) 750 Mg Tablet, 750 MG PO DAILY Prescribed by: THO CHARLES on 08/28/21 1415 Rivaroxaban (Xarelto Tablet) 15 Mg Tablet, 15 MG PO BID@0700,1900 Prescribed by: LUCY MOLINA on 08/29/21 1321 Rivaroxaban (Xarelto) 20 Mg Tablet, 20 MG PO DAILY Prescribed by: LUCY MOLINA on 08/29/21 1321 Tramadol HCl (Ultram) 50 Mg Tablet, 50 MG PO Q4H Prescribed by: THO CHARLES on 08/28/21 1415 Review of Systems Constitutional: see HPI; No chills, No fever EENTM: see HPI Respiratory: no symptoms reported Cardiovascular: no symptoms reported Genitourinary: no symptoms reported Musculoskeletal: no symptoms reported Skin: no symptoms reported Psychiatric/Neurological: No Symptoms Reported Past Sepgvuu-Ugejey-Wgdxya Hx Patient Social History Smoking Status: Former Smoker Use of E-Cig and/or Vaping dev: Yes Substance use?: No Alcohol Use?: Yes Alcohol Frequency: Once in a while Immunizations Up To Date First/Initial COVID19 Vaccinat: DOESN'T PLAN ON TAKING IT Second COVID19 Vaccination Bear: DOESN'T PLAN ON TAKING IT Third COVID19 Vaccination Date: DOESN'T PLAN ON TAKING IT Seasonal Allergies Seasonal Allergies: Yes Past Medical History Surgery/Hospitalization HX: -bilateral foot surgerys/toe amputations - first 3 toes on each food removed -all teeth pulled/removed Surgeries: No Abdominal, Orthopedic Respiratory: No Cardiac: Yes Deep Vein Thrombosis Neurological: No Genitourinary: No Musculoskeletal: No Endocrine: No Cancer: No Integumentary: Yes Psoriasis Family Medical History No Pertinent Family Hx, Other Conditions/Hx Physical Exam Vital Signs Vital Signs - First Documented 10/19/21 12:45 Temp 36.3 Pulse 66 Resp 16 B/P (MAP) 149/90 (109) Pulse Ox 100 O2 Delivery Room Air Capillary Refill : Less Than 3 Seconds Height, Weight, BMI Height: '" Weight: lbs. oz. kg; 27.00 BMI Method: General Appearance: WD/WN, no apparent distress HEENT: PERRL/EOMI, normal ENT inspection Respiratory: no respiratory distress, no accessory muscle use Hips: bilateral hip non-tender, bilateral hip normal inspection, bilateral hip normal range of motion Legs: bilateral leg other (Bilateral lower extremities.the feet and ankles are edematous, brownish thickened skin, they are both equally warm and nontender to palpation. Has a clean dressing to the wounds on each foot.) Knees: bilateral knee non-tender, bilateral knee normal inspection, bilateral knee normal range of motion Ankles: bilateral ankle non-tender, bilateral ankle normal inspection, bilateral ankle normal range of motion Feet: bilateral foot non-tender, bilateral foot normal inspection, bilateral foot normal range of motion Neurologic/Psychiatric: alert, normal mood/affect, oriented x 3 Skin: normal color, warm/dry Progress/Results/Core Measures Results/Orders Lab Results Laboratory Tests Test 10/19/21 13:12 Range/Units White Blood Count 5.1 4.3-11.0 10^3/uL Red Blood Count 4.13 L 4.30-5.52 10^6/uL Hemoglobin 15.4 13.3-17.7 g/dL Hematocrit 45 40-54 % Mean Corpuscular Volume 109 H 80-99 fL Mean Corpuscular Hemoglobin 37 H 25-34 pg Mean Corpuscular Hemoglobin Concent 34 32-36 g/dL Red Cell Distribution Width 15.9 H 10.0-14.5 % Platelet Count 155 130-400 10^3/uL Mean Platelet Volume 9.0 9.0-12.2 fL Immature Granulocyte % (Auto) 0 % Neutrophils (%) (Auto) 63 42-75 % Lymphocytes (%) (Auto) 25 12-44 % Monocytes (%) (Auto) 7 0-12 % Eosinophils (%) (Auto) 4 0-10 % Basophils (%) (Auto) 1 0-10 % Neutrophils # (Auto) 3.2 1.8-7.8 10^3/uL Lymphocytes # (Auto) 1.3 1.0-4.0 10^3/uL Monocytes # (Auto) 0.4 0.0-1.0 10^3/uL Eosinophils # (Auto) 0.2 0.0-0.3 10^3/uL Basophils # (Auto) 0.0 0.0-0.1 10^3/uL Immature Granulocyte # (Auto) 0.0 0.0-0.1 10^3/uL Sodium Level 139 135-145 MMOL/L Potassium Level 3.8 3.6-5.0 MMOL/L Chloride Level 106 98-107 MMOL/L Carbon Dioxide Level 22 21-32 MMOL/L Anion Gap 11 5-14 MMOL/L Blood Urea Nitrogen 5 L 7-18 MG/DL Creatinine 0.68 0.60-1.30 MG/DL Estimat Glomerular Filtration Rate 129 BUN/Creatinine Ratio 7 Glucose Level 99 70-105 MG/DL Calcium Level 8.9 8.5-10.1 MG/DL Corrected Calcium 9.1 8.5-10.1 MG/DL Total Bilirubin 0.5 0.1-1.0 MG/DL Aspartate Amino Transf (AST/SGOT) 22 5-34 U/L Alanine Aminotransferase (ALT/SGPT) 15 0-55 U/L Alkaline Phosphatase 88 40-136 U/L Total Protein 6.7 6.4-8.2 GM/DL Albumin 3.7 3.2-4.5 GM/DL My Orders Orders - MONTRELL MADRID APRN Cbc With Automated Diff (10/19/21 12:52) Comprehensive Metabolic Panel (10/19/21 12:52) Ua Culture If Indicated (10/19/21 12:52) Rivaroxaban Tablet (Xarelto Tablet) (10/19/21 13:15) Vital Signs/I&O 10/19/21 12:45 Temp 36.3 Pulse 66 Resp 16 B/P (MAP) 149/90 (109) Pulse Ox 100 O2 Delivery Room Air Blood Pressure Mean: 109 Departure Communication (Admissions) He tells me he has Xarelto waiting for him at the pharmacy. Given that he has no pain whatsoever in either lower extremity and they are both warm to the touch, and absent palpable pulse with known peripheral arterial disease not alarming. Arterial ultrasound is not indicated here given the absence of symptoms as it will result in any emergent action being taken. Impression Primary Impression: PAD (peripheral artery disease) Additional Impression: History of DVT (deep vein thrombosis) Disposition: 01 HOME, SELF-CARE Condition: Stable Departure-Patient Inst. Decision time for Depature: 13:38 Referrals: NO,LOCAL PHYSICIAN (PCP/Family) Primary Care Physician Patient Instructions: Going Home on Blood Thinners , Peripheral Vascular (Arterial) Disease (DC) Add. Discharge Instructions: 1. Home and restart your Xarelto today. Next dose this evening. Return to ER for any concerns. All discharge instructions reviewed with patient and/or family. Voiced understanding. MONTRELL MADRID APRN Oct 19, 2021 13:39
[2021-10-19 14:02] VITALS: BP 121/76
== END 2021-10-19 14:02 | disposition home or self-care (01) ==
LOC: EDUNIT# 12:45 → ER 12:46
DX: I73.9 Peripheral vascular disease, unspecified (principal); Z87.891 Personal history of nicotine dependence; Z86.718 Personal history of other venous thrombosis and embolism; Z79.01 Long term (current) use of anticoagulants
CPT/HCPCS: 36415; 80053; 85025; 99283

== ENCOUNTER 2022-04-16 22:58 | Inpatient (IN) | payer OTHER ==
[~2022-04-16] VITALS: Ht 183 cm; Wt 76.5 kg
[2022-04-16 00:45] VITALS: BP 149/89
[2022-04-16 23:10] LABS: BASOPHILS % (AUTO) 0 % (0-10); EOSINOPHILS # (AUTO) 0.1 10^3/uL (0.0-0.3); EOSINOPHILS % (AUTO) 1 % (0-10); HEMATOCRIT 47 % (40-54); HEMOGLOBIN 16.9 g/dL (13.3-17.7); LYMPHOCYTES # (AUTO) 1.4 10^3/uL (1.0-4.0); LYMPHOCYTES % (AUTO) 16 % (12-44); MEAN CORPUSCULAR HEMOGLOBIN 40 pg (25-34); MEAN CORPUSCULAR HGB CONC 36 g/dL (32-36); MEAN CORPUSCULAR VOLUME 109 fL (80-99); MEAN PLATELET VOLUME 9.9 fL (9.0-12.2); MONOCYTES # (AUTO) 0.6 10^3/uL (0.0-1.0); MONOCYTES % (AUTO) 7 % (0-12); NEUTROPHILS # (AUTO) 6.5 10^3/uL (1.8-7.8); NEUTROPHILS % (AUTO) 74 % (42-75); PLATELET COUNT 255 10^3/uL (130-400); WHITE BLOOD COUNT 8.7 10^3/uL (4.3-11.0)
[2022-04-16] MEDS ORDERED: PIPERACILLIN SODIUM/TAZOBACTAM 4.5 GM in NS (IVPB) 100 ML IV ONE (23:15)
[2022-04-16] MEDS ORDERED: NS IV 1000 ML 1,000 ML IV SCH (23:15)
[2022-04-16] MEDS: VANCOMYCIN INJECTION 750 MG in NS (IVPB) 250 ML IV SCH (23:20)
[2022-04-16 23:24] LABS: ALBUMIN 3.5 GM/DL (3.2-4.5); POTASSIUM 3.5 MMOL/L (3.6-5.0)
[2022-04-16 23:25] LABS: CALCIUM 9.4 MG/DL (8.5-10.1)
[2022-04-16 23:26] LABS: TOTAL PROTEIN 7.2 GM/DL (6.4-8.2)
[2022-04-16 23:28] LABS: BILIRUBIN,TOTAL 0.8 MG/DL (0.1-1.0)
[2022-04-16 23:30] LABS: CREATININE SERUM 0.73 MG/DL (0.60-1.30); PROTHROMBIN TIME PATIENT 13.4 SEC (12.2-14.7)
[2022-04-16] MEDS ORDERED: fentaNYL INJ 100 MCG/2 ML AMP IVP ONE (23:30)
[2022-04-16 23:31] LABS: ERYTHROCYTE SEDIMENTATION RATE 17 MM/HR (0-15)
[2022-04-16 23:33] LABS: MAGNESIUM 1.8 MG/DL (1.6-2.4)
[2022-04-16 23:34] LABS: CLARITY,URINE CLEAR; COLOR,URINE YELLOW; GLUCOSE, URINE (UA) TRACE (NEGATIVE); KETONES,URINE TRACE (NEGATIVE); LEUKOCYTE ESTERASE ,URINE NEGATIVE (NEGATIVE); NITRITE,URINE POSITIVE (NEGATIVE); PH,URINE 5.5 (5-9); PROTEIN,URINE 2+ (NEGATIVE)
[2022-04-16 23:58] LABS: BACTERIA,URINE LARGE /HPF; CALCIUM OXALATE CRYSTALS,UR MODERATE /LPF; HYALINE CASTS, URINE >50 /LPF
[2022-04-16 23:59] LABS: BILIRUBIN,URINE 2+ (NEGATIVE)
[2022-04-17] VITALS (13 sets, daily range): BP systolic 93–149; BP diastolic 53–95
[2022-04-17 00:05] LABS: AMPHETAMINE SCREEN, URINE NEGATIVE (NEGATIVE); BARBITURATE SCREEN URINE NEGATIVE (NEGATIVE); BENZODIAZEPINES SCREEN URINE NEGATIVE (NEGATIVE); CANNABINOID SCREEN, URINE NEGATIVE (NEGATIVE); COCAINE SCREEN URINE NEGATIVE (NEGATIVE); METHADONE STAT NEGATIVE (NEGATIVE); OPIATE SCREEN URINE NEGATIVE (NEGATIVE); OXYCODONE STAT NEGATIVE (NEGATIVE); PROPOXYPHENE STAT NEGATIVE (NEGATIVE); TRICYCLIC ANTIDEPRESSANTS SCRE NEGATIVE (NEGATIVE)
[2022-04-17] MEDS: VANCOMYCIN INJECTION 750 MG in NS (IVPB) 250 ML IV SCH (00:17)
--- NOTE | 2022-04-17 00:20 | ED Lower Extremity ---
General Chief Complaint: Skin/Wound Problems Stated Complaint: FOOT WOUND Nursing Triage Note: brought in by [facility] for bilateral foot infection. pt reports increased drainage over the last 2 days. Source: patient, old records History of Present Illness Date Seen by Provider: Apr 16, 2022 Time Seen by Provider: 22:57 Initial Comments PT ARRIVES VIA EMS FROM HOME--LIVES WITH AND SON IN A TRAILER PT WITH LONG HISTORY OF BILATERAL FOOT WOUNDS WITH GANGREN E/OSTEOMYELITIS/CELLULITIS, AND HAD MULTIPLE TOES AMPUTATED BILATERALLY LAST JULY 2021--ADMITTED 08/03-08/10/21--LEFT AMA, REFUSED TRANSFER TO [facility] FOR VASCULAR SURGERY. PT WITH MULTIPLE DVT'S WELL PAD, HAS BEEN PRESCRIBED XARELTO, BUT REFUSES TO TAKE IT OR ANY OTHER MEDICATIONS PT WITH EXTREME NON-COMPLIANCE ON ALL ASPECTS OF CARE, AND NEVER FOLLOWED UP WITH ANYONE HE DID PRESENT BACK TO ER AND WAS READMITTED 08/23-08/30/21 FOR SEPSIS/WOUND INFECTIONS--TREATED MEDICALLY SEE OLD CHARTS FOR DETAILS. PT PRESENTS TONIGHT FOR ONGOING INFECTION IN BOTH OF HIS FEET--STATES THE WOUNDS HAVE BEEN THERE SINCE JULY SINCE SURGERY, AND ARE NOT GETTING BETTER --HE STATES "THE GANGRENE'S STILL THERE" SYMPTOMS ARE NO DIFFERENT TONIGHT IN ANY WAY IS UNCLEAR WHAT PROMPTED HIM TO PRESENT HERE TONIGHT, HE STATES THAT NOTHING IS DIFFERENT. 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 IS UNCLEAR HOW LONG THEY HAVE BEEN IN THIS CURRENT LIVING SITUATION. PT STATES HE HAS NOT HAD A BM IN 5 DAYS BECAUSE HE DIDN'T HAVE ANY WAY TO GET TO THE BATHROOM. NO NAUSEA/VOMITING NO FEVER NO COUGH/CONGESTION/SHORTNESS OF BREATH NO CHEST PAIN Allergies and Home Medications Allergies Coded Allergies: No Known Drug Allergies (Unverified , 08/04/21) He denies allergies to drugs and food, says he has seasonal allergies Patient Home Medication List Home Medication List Reviewed: Yes Ibuprofen (Ibuprofen) 200 Mg Capsule, 400 MG PO Q8H PRN for PAIN-MILD (1-4), (Reported) Entered as Reported by: JO DAVISON on 08/23/21 1542 Discontinued Medications Acetaminophen (Tylenol Extra Strength) 500 Mg Tablet, 1,000 MG PO Q8H PRN for PAIN-MILD (1-4), (Reported) Discontinued Reason: No Longer Taking Entered as Reported by: KIERA DELACRUZ on 08/06/21 0831 Last Action: Discontinued Levofloxacin (Levofloxacin) 750 Mg Tablet, 750 MG PO DAILY Discontinued Reason: No Longer Taking Prescribed by: THO CHARLES on 08/28/21 141 Last Action: Discontinued Rivaroxaban (Xarelto Tablet) 15 Mg Tablet, 15 MG PO BID@0700,1900 Discontinued Reason: No Longer Taking Prescribed by: LUCY MOLINA on 08/29/21 1321 Last Action: Discontinued Rivaroxaban (Xarelto) 20 Mg Tablet, 20 MG PO DAILY Discontinued Reason: No Longer Taking Prescribed by: LUCY MOLINA on 08/29/21 132 Last Action: Discontinued Tramadol HCl (Ultram) 50 Mg Tablet, 50 MG PO Q4H Discontinued Reason: No Longer Taking Prescribed by: THO CHARLES on 08/28/211414 Last Action: Discontinued Review of Systems Constitutional: no symptoms reported Respiratory: no symptoms reported Cardiovascular: see HPI; No chest pain; edema Gastrointestinal: no symptoms reported Musculoskeletal: see HPI Skin: see HPI Psychiatric/Neurological: No Symptoms Reported Past Yiansxh-Gkaveh-Csdjiq Hx Patient Social History Tobacco Use?: Yes Tobacco type used: Cigarettes Smoking Status: Current Everyday Smoker Substance use?: No Alcohol Use?: Yes Alcohol type: Hard Liquor Alcohol Frequency: Daily Pt feels they are or have been: No Immunizations Up To Date First/Initial COVID19 Vaccinat: DOESN'T PLAN ON TAKING IT Second COVID19 Vaccination Bear: DOESN'T PLAN ON TAKING IT Third COVID19 Vaccination Date: DOESN'T PLAN ON TAKING IT Seasonal Allergies Seasonal Allergies: Yes Past Medical History Surgery/Hospitalization HX: -bilateral foot surgerys/toe amputations - first 3 toes on each food removed -all teeth pulled/removed pad/dvt, psoraisis Surgeries: Yes Abdominal, Orthopedic Respiratory: No Cardiac: Yes (PAD; DVT'S ) Deep Vein Thrombosis, Peripheral Vascular Neurological: No Genitourinary: No Gastrointestinal: No Musculoskeletal: Yes (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) Amputee Endocrine: No HEENT: No (ALL TEETH REMOVED) Cancer: No Psychosocial: No Integumentary: Yes (CHRONIC LEG WOUNDS/GANGRENE) Psoriasis Blood Disorders: Yes (DVT'S) Family Medical History No Pertinent Family Hx, Other Conditions/Hx EXTREME NON-COMPLIANCE IN ALL ASPECTS OF CARE SOCIAL HISTORY: -SMOKES 2-3 PPD -ETOH--DRINKS 1.75 LITERS OF HARD LIQUOR DAILY--STATES LATELY HE HAS ONLY BEEN DRINKING "3 OR 4 GLASSES" OF HARD LIQUOR/DAY. 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 -ALL TEETH REMOVED -HERNIA REPAIR Physical Exam Vital Signs Vital Signs - First Documented 04/16/22 22:58 Temp 36.5 Pulse 123 Resp 16 B/P (MAP) 130/98 (109) Pulse Ox 96 O2 Delivery Room Air Capillary Refill : Less Than 3 Seconds Height, Weight, BMI Height: '" Weight: lbs. oz. kg; 26.00 BMI Method: General Appearance: no apparent distress, thin, other (PT IS EXTREMELY MALODOROUS, AND FILTHY, PANTS ARE HEAVILY CAKED WITH MUD; BOTH FEET WITH DRESSI NGS IN PLACE, BUT ARE POORLY PLACED, AND BOTTOM OF FEET ARE EXPOSED. DRESSINGS ARE FILTHY AND BOTTOMS ARE HEAVILY COATED WITH DIRT, AND PURULENT DRAINAGE SEEPING THROUGH DRESSINGS--DO NOT APPEAR TO HAVE BEEN CHANGED ANY TIME RECENTLY. PT ALSO REEKS OF CIGARETTES. PT IS PLEASANT AND TALKATIVE. DOES NOT APPEAR TO BE IN ANY DISCOMFORT OR DISTRESS. ) HEENT: PERRL/EOMI Neck: normal inspection Cardiovascular: regular rate, rhythm, no murmur Respiratory: normal breath sounds, no respiratory distress, no accessory muscle use Gastrointestinal: normal bowel sounds, other (ABDOMEN IS SOMEWHAT FIRM AND SLIGHTLY DISTENDED--PT STATES HE HAS NOT BEEN ABLE TO HAVE A BM FOR THE LAST 5 DAYS DUE TO BEING UNABLE TO GET TO BATHROOM, BUT HAS STRONG URGE TO HAVE BM. ) Knees: bilateral knee other (SEE BELOW) Ankles: bilateral ankle other (SEE BELOW) Feet: bilateral foot other (BOTH LEGS WITH MASSIVE EDEMA; EXTENSIVE CHRONIC VENOUS STASIS CHANGES BILATERALLY. EXTENSIVE CELLULITIS TO BILATERAL LEGS, WITH SIGNIFICANT INDURATION TO MID THIGH BILATERALLY--ESPECIALLY POSTERIORLY. BILATERAL FEET--TOES 4 AND 5 OF BOTH FEET ALMOST UNRECOGNIZABLE. THE ENDS OF BOTH FEET WITH MASSIVE UNSTAGEABLE ULCERS WITH THICK PURLENT MATERIAL DRAINING AND ALSO THICK ADHERENT MATTER WELL. EXTENSIVE EXFOLIATION OF SKIN TO FEET AND LOWER LEGS. EXTENSIVE THICKENING AND LICHENIFICATION OF SKIN AROUND RIGHT ANKLE. FEET ARE EXTREMELY MALODOROUS. UNABLE TO PALPATE ANY PULSES IN LEGS DUE TO EDEMA. LEGS ARE WARM AND PINK/NOT CYANOTIC. UNABLE TO DETERMINE IF CAPILLARY REFILL IS PRESENT. DOES HAVE SENSATION BILATERALLY. ) Neurologic/Psychiatric: alert, normal mood/affect, oriented x 3 Skin: other ( ABOVE. ) Progress/Results/Core Measures Results/Orders Lab Results Laboratory Tests Test 04/16/22 23:03 04/16/22 23:10 04/16/22 23:23 Range/Units White Blood Count 8.7 4.3-11.0 10^3/uL Red Blood Count 4.26 L 4.30-5.52 10^6/uL Hemoglobin 16.9 13.3-17.7 g/dL Hematocrit 47 40-54 % Mean Corpuscular Volume 109 H 80-99 fL Mean Corpuscular Hemoglobin 40 H 25-34 pg Mean Corpuscular Hemoglobin Concent 36 32-36 g/dL Red Cell Distribution Width 12.6 10.0-14.5 % Platelet Count 255 130-400 10^3/uL Mean Platelet Volume 9.9 9.0-12.2 fL Immature Granulocyte % (Auto) 1 % Neutrophils (%) (Auto) 74 42-75 % Lymphocytes (%) (Auto) 16 12-44 % Monocytes (%) (Auto) 7 0-12 % Eosinophils (%) (Auto) 1 0-10 % Basophils (%) (Auto) 0 0-10 % Neutrophils # (Auto) 6.5 1.8-7.8 10^3/uL Lymphocytes # (Auto) 1.4 1.0-4.0 10^3/uL Monocytes # (Auto) 0.6 0.0-1.0 10^3/uL Eosinophils # (Auto) 0.1 0.0-0.3 10^3/uL Basophils # (Auto) 0.0 0.0-0.1 10^3/uL Immature Granulocyte # (Auto) 0.1 0.0-0.1 10^3/uL Erythrocyte Sedimentation Rate 17 H 0-15 MM/HR Prothrombin Time 13.4 12.2-14.7 SEC INR Comment 1.0 0.8-1.4 Activated Partial Thromboplast Time 29 24-35 SEC Sodium Level 135 135-145 MMOL/L Potassium Level 3.5 L 3.6-5.0 MMOL/L Chloride Level 99 98-107 MMOL/L Carbon Dioxide Level 20 L 21-32 MMOL/L Anion Gap 16 H 5-14 MMOL/L Blood Urea Nitrogen 12 7-18 MG/DL Creatinine 0.73 0.60-1.30 MG/DL Estimat Glomerular Filtration Rate 117 BUN/Creatinine Ratio 16 Glucose Level 138 H 70-105 MG/DL Lactic Acid Level 1.84 0.50-2.00 MMOL/L Calcium Level 9.4 8.5-10.1 MG/DL Corrected Calcium 9.8 8.5-10.1 MG/DL Magnesium Level 1.8 1.6-2.4 MG/DL Total Bilirubin 0.8 0.1-1.0 MG/DL Aspartate Amino Transf (AST/SGOT) 19 5-34 U/L Alanine Aminotransferase (ALT/SGPT) 18 0-55 U/L Alkaline Phosphatase 159 H 40-136 U/L Total Creatine Kinase 44 30-200 U/L Creatine Kinase MB 4.0 <6.6 NG/ML Myoglobin 61.9 10.0-92.0 NG/ML C-Reactive Protein High Sensitivity 1.00 H 0.00-0.50 MG/DL Total Protein 7.2 6.4-8.2 GM/DL Albumin 3.5 3.2-4.5 GM/DL Procalcitonin 2.37 H <0.10 NG/ML Serum Alcohol < 10 <10 MG/DL Urine Color YELLOW Urine Clarity CLEAR Urine pH 5.5 5-9 Urine Specific [place] >=1.030 1.016-1.022 Urine Protein 2+ H NEGATIVE Urine Glucose (UA) TRACE H NEGATIVE Urine Ketones TRACE H NEGATIVE Urine Nitrite POSITIVE H NEGATIVE Urine Bilirubin 2+ H NEGATIVE Urine Urobilinogen 1.0 < = 1.0 MG/DL Urine Leukocyte Esterase NEGATIVE NEGATIVE Urine RBC (Auto) NEGATIVE NEGATIVE Urine RBC 5-10 H /HPF Urine WBC 10-25 H /HPF Urine Squamous Epithelial Cells NONE /HPF Urine Crystals PRESENT H /LPF Urine Calcium Oxalate Crystals MODERATE H /LPF Urine Bacteria LARGE H /HPF Urine Casts PRESENT /LPF Urine Hyaline Casts >50 H /LPF Urine Granular Casts 10-25 H /LPF Urine Mucus MODERATE H /LPF Urine Culture Indicated CULTURE PENDING Urine Opiates Screen NEGATIVE NEGATIVE Urine Oxycodone Screen NEGATIVE NEGATIVE Urine Methadone Screen NEGATIVE NEGATIVE Urine Propoxyphene Screen NEGATIVE NEGATIVE Urine Barbiturates Screen NEGATIVE NEGATIVE Ur Tricyclic Antidepressants Screen NEGATIVE NEGATIVE Urine Phencyclidine Screen NEGATIVE NEGATIVE Urine Amphetamines Screen NEGATIVE NEGATIVE Urine Methamphetamines Screen NEGATIVE NEGATIVE Urine Benzodiazepines Screen NEGATIVE NEGATIVE Urine Cocaine Screen NEGATIVE NEGATIVE Urine Cannabinoids Screen NEGATIVE NEGATIVE Influenza Type A (RT-PCR) Not Detected Not Detecte Influenza Type B (RT-PCR) Not Detected Not Detecte SARS-CoV-2 RNA (RT-PCR) Not Detected Not Detecte My Orders Orders - MARCIAL GALEANO DO Ed Iv/Invasive Line Start (04/16/22 23:02) Monitor-Rhythm Ecg Trace Only (04/16/22 23:02) Cbc With Automated Diff (04/16/22 23:02) Comprehensive Metabolic Panel (04/16/22 23:02) Creatine Kinase (04/16/22 23:02) Creatine Kinase Mb (04/16/22 23:02) Hs C Reactive Protein (04/16/22 23:02) Drug Screen Stat (Urine) (04/16/22 23:02) Lactic Acid Analyzer (04/16/22 23:02) Magnesium (04/16/22 23:02) Procalcitonin (Pct) (04/16/22 23:02) Protime With Inr (04/16/22 23:02) Partial Thromboplastin Time (04/16/22 23:02) Ua Culture If Indicated (04/16/22 23:02) Erythrocyte Sedimentation Rate (04/16/22 23:02) Myoglobin Serum (04/16/22 23:02) Ed Iv/Invasive Line Start (04/16/22 23:02) Ns Iv 1000 Ml (Sodium Chloride 0.9%) (04/16/22 23:15) Piperacillin Sodium/Tazobactam (Zosyn Vi (04/16/22 23:15) Vancomycin Injection (Vancomycin Injecti (04/16/22 23:15) Blood Culture (04/16/22 23:02) Sputum Culture (04/16/22 23:02) Urine Culture (04/16/22 23:02) Chest 1 View, Ap/Pa Only (04/16/22 23:02) Ed Iv/Invasive Line Start (04/16/22 23:02) Ed Iv/Invasive Line Start (04/16/22 23:02) Vital Signs Adult Sepsis Patie Q15M (04/16/22 23:02) O2 (04/16/22 23:02) Remove Rings In Anticipation O (04/16/22:02) Covid 19 Inhouse Test (04/16/22 23:02) Influenza A And B By Pcr (04/16/22 23:02) Isolation Central Supply Req (04/16/22 23:02) Fentanyl Inj (Sublimaze Injection) (04/16/22 23:30) Wound Culture (04/16/22 23:37) Wound Culture (04/16/22 23:37) Wound Dressing-Ed (04/16/22 23:37) Foot, Bilateral, 2 Views (04/16/22 23:02) Medications Given in ED Current Medications Medications Dose Ordered Sig/Bill Route Start Time Stop Time Status Last Admin Dose Admin Fentanyl Citrate 50 mcg ONCE ONCE IVP 04/16/22 23:30 04/16/22 23:31 DC 04/16/22 23:31 50 MCG Piperacillin Sod/ Tazobactam Sod 4.5 gm/Sodium Chloride 100 ml @ 200 mls/hr ONCE ONCE IV 04/16/22 23:15 04/16/22 23:44 DC 04/16/22 23:32 200 MLS/HR Vital Signs/I&O 04/16/22 22:58 Temp 36.5 Pulse 123 Resp 16 B/P (MAP) 130/98 (109) Pulse Ox 96 O2 Delivery Room Air Blood Pressure Mean: 109 Progress Progress Note : Progress Note SEPSIS PROTOCOL INITIATED NO DETERIORATION IN PT'S CONDITION DURING ER STAY. FOCUS EXAM DONE AT 2330: SEPSIS RULED OUT--DOES NOT MEET CRITERIA EXAM UNCHANGED GIVEN IV FLUIDS, ANTIBIOTICS, LACTIC ACID LEVEL DONE. CULTURES OBTAINED FROM BOTH FEET WOUNDS. FEET CLEANSED AND DRESSED WITH WET TO DRY DRESSINGS AND KERLIX GAUZE. ADVISED PT THAT HE WOULD LIKELY HAVE BILATERAL LEG AMPUTATIONS, AND HE UND ERSTANDS AND IS AGREEABLE TO THAT. PT WISHES TO BE A FULL CODE. Diagnostic Imaging Comments XRAYS BILATERAL FEET--PENDING RADIOLOGIST REVIEW EXTENSIVE OSTEOMYELITIS/BONY EROSION BILATERALLY CXR--RLL INFILTRATE/ATELECTASIS VS POSITIONING--PENDING RADIOLOGIST REVIEW Reviewed: Reviewed by Me Departure Communication (Admissions) 2339--SPOKE WITH DR. GONZALEZ, SURGEON. HE WILL SEE PT IN CONSULT. ORDERS NOTED. 2342--SPOKE WITH DR. LIND, HOSPITALIST, ACCEPTS PT FOR ADMIT. Impression Primary Impression: Gangrene of both feet Additional Impressions: OSTEOMYELITIS BILATERAL FEET Peripheral vascular disease UTI (urinary tract infection) CELLULITS OF BOTH FEET AND LEGS EXTREME NON-COMPLIANCE Disposition: ADMITTED INPATIENT Condition: Stable Admissions Decision to Admit Reason: Admit from ER (General) Decision to Admit/Date: Apr 16, 2022 Time/Decision to Admit Time: 23:45 Departure-Patient Inst. Referrals: NO,LOCAL PHYSICIAN (PCP/Family) Primary Care Physician MARCIAL GALEANO DO Apr 17, 2022 00:20
[2022-04-17] MEDS ORDERED: LACTATED RINGERS 1,000 ML IV ONE (00:58)
[2022-04-17] MEDS: LACTATED RINGERS 1,000 ML IV SCH ×5 (01:55→21:02)
[2022-04-17] MEDS ORDERED: fentaNYL INJ 100 MCG/2 ML AMP IV PRN (02:00)
[2022-04-17] MEDS ORDERED: ONDANSETRON 4 MG/2 ML (SDV) Z0FRAN IV PRN (02:00)
[2022-04-17] MEDS: HYDROmorphone 2 MG/ML VIAL (DILAUDID) IV PRN ×7 (03:20→23:25)
[2022-04-17] MEDS: PIPERACILLIN SODIUM/TAZOBACTAM 4.5 GM in NS (IVPB) 100 ML IV SCH ×3 (05:42→21:02)
[2022-04-17 05:57] LABS: BASOPHILS % (AUTO) 0 % (0-10); EOSINOPHILS # (AUTO) 0.2 10^3/uL (0.0-0.3); EOSINOPHILS % (AUTO) 3 % (0-10); HEMATOCRIT 39 % (40-54); HEMOGLOBIN 13.9 g/dL (13.3-17.7); LYMPHOCYTES # (AUTO) 1.3 10^3/uL (1.0-4.0); LYMPHOCYTES % (AUTO) 18 % (12-44); MEAN CORPUSCULAR HEMOGLOBIN 40 pg (25-34); MEAN CORPUSCULAR HGB CONC 35 g/dL (32-36); MEAN CORPUSCULAR VOLUME 112 fL (80-99); MONOCYTES # (AUTO) 0.6 10^3/uL (0.0-1.0); MONOCYTES % (AUTO) 9 % (0-12); NEUTROPHILS # (AUTO) 4.9 10^3/uL (1.8-7.8); NEUTROPHILS % (AUTO) 70 % (42-75); PLATELET COUNT 192 10^3/uL (130-400); WHITE BLOOD COUNT 7.1 10^3/uL (4.3-11.0)
--- NOTE | 2022-04-17 06:12 | Diagnostic Imaging Report ---
EXAMINATION: Chest 1 view HISTORY: foot pain COMPARISON: 09/09/2021 FINDINGS: Heart size and pulmonary vasculature are normal. The lungs are clear without consolidation, pleural effusion, or pneumothorax. The osseous structures are intact. IMPRESSION: 1. No acute radiographic abnormality in the chest. Dictated by: Dictated on workstation # [id number]
[2022-04-17 06:17] LABS: ALBUMIN 2.6 GM/DL (3.2-4.5)
[2022-04-17 06:19] LABS: CALCIUM 7.9 MG/DL (8.5-10.1)
[2022-04-17 06:20] LABS: TOTAL PROTEIN 5.1 GM/DL (6.4-8.2)
[2022-04-17 06:22] LABS: BILIRUBIN,TOTAL 0.6 MG/DL (0.1-1.0)
[2022-04-17 06:24] LABS: CREATININE SERUM 0.59 MG/DL (0.60-1.30)
--- NOTE | 2022-04-17 07:14 | Consultation - Surgery ---
History of Present Illness History of Present Illness Patient Consulted On(bimal/time) 04/17/22 07:14 Date Seen by Provider: Apr 17, 2022 Time Seen by Provider: 07:16 History of Present Illness Consult requested by Dr. Cordova for chronic lower extremity wounds. Patient is a 41 year old male who has had chronic wounds to b/l lower extremity since July. Had multiple toes amputated for gangrene. Had limited follow up. Refused transfer for vascular intervention previously as well. Multiple attempts for follow up were arranged and patient unable to make he states. Wounds have continued to worsen. Foul smelling and drainage. Extreme pain to b/l lower extremity. Patient states he has been wheelchair bound for months, and unable to get around. History of clots supposed to be on Xarelto and not been on for long time. B/l x ray feet: Significant surgical changes of the bilateral feet with diffuse osseous demineralization. This does limit evaluation for acute fracture and focal erosion. There may be an erosive process occurring along the distal aspect of the left 4th metatarsal. No other acute osseous abnormality. Allergies and Home Medications Allergies Coded Allergies: No Known Drug Allergies (Unverified , 08/04/21) He denies allergies to drugs and food, says he has seasonal allergies Patient Home Medication List Home Medication List Reviewed: Yes Ibuprofen (Ibuprofen) 200 Mg Capsule, 400 MG PO Q8H PRN for PAIN-MILD (1-4), (Reported) Entered as Reported by: JO DAVISON on 08/23/21 1542 Discontinued Medications Acetaminophen (Tylenol Extra Strength) 500 Mg Tablet, 1,000 MG PO Q8H PRN for PAIN-MILD (1-4), (Reported) Discontinued Reason: No Longer Taking Entered as Reported by: KIERA DELACRUZ on 08/06/21 0831 Last Action: Discontinued Levofloxacin (Levofloxacin) 750 Mg Tablet, 750 MG PO DAILY Discontinued Reason: No Longer Taking Prescribed by: THO CHARLES on 08/28/21 1415 Last Action: Discontinued Rivaroxaban (Xarelto Tablet) 15 Mg Tablet, 15 MG PO BID@0700,1900 Discontinued Reason: No Longer Taking Prescribed by: LUCY MOLINA on 08/29/21 1321 Last Action: Discontinued Rivaroxaban (Xarelto) 20 Mg Tablet, 20 MG PO DAILY Discontinued Reason: No Longer Taking Prescribed by: LUCY MOLINA on 08/29/21 1321 Last Action: Discontinued Tramadol HCl (Ultram) 50 Mg Tablet, 50 MG PO Q4H Discontinued Reason: No Longer Taking Prescribed by: THO CHARLES on 08/28/21 1415 Last Action: Discontinued Past Ngjfmcy-Ijumul-Fgghcp Hx Patient Social History Number of Drinks Today: 3 Smoking Status: Current Everyday Smoker Alcohol Use?: Unable to obtain Have you traveled recently?: No Seasonal Allergies Seasonal Allergies: Yes Surgeries History of Surgeries: Yes Surgeries: Abdominal, Orthopedic Respiratory History of Respiratory Disorde: No Cardiovascular History of Cardiac Disorders: Yes (PAD; DVT'S ) Cardiac Disorders: Deep Vein Thrombosis, Peripheral Vascular Neurological History of Neurological Disord: No Genitourinary History of Genitourinary Disor: No Gastrointestinal History of Gastrointestinal Di: No Musculoskeletal History of Musculoskeletal Dis: Yes (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) Musculoskeletal Disorders: Amputee Endocrine History of Endocrine Disorders: No HEENT History of HEENT Disorders: No (ALL TEETH REMOVED) Cancer History of Cancer: No Psychosocial History of Psychiatric Problem: No Integumentary History of Skin or Integumenta: Yes (CHRONIC LEG WOUNDS/GANGRENE) Skin/Integumentary Disorders: Psoriasis Blood Transfusions History of Blood Disorders: Yes (DVT'S) Reviewed Nursing Assessment Reviewed/Agree w Nursing PMH: Yes Family Medical History Significant Family History: No Pertinent Family Hx, Other Conditions/Hx Review of Systems-General Constitutional: No chills, No diaphoresis EENTM: No blurred vision, No double vision Respiratory: No cough, No dyspnea on exertion Cardiovascular: No chest pain, No palpitations Gastrointestinal: No abdominal pain, No nausea, No vomiting Genitourinary: No decreased output, No discharge Musculoskeletal: joint pain, joint swelling, other (open wounds feet) Skin: change in color, dryness, other (open b/l wound feet) Psychiatric/Neurological: Denies Anxiety, Denies Depressed, Denies Emotional Problems All Other Systems Reviewed Negative Unless Noted: Yes (Negative excepted noted.) Physical Exam-General Problems Physical Exam Vital Signs Vital Signs - First Documented 04/16/22 22:58 Temp 36.5 Pulse 123 Resp 16 B/P (MAP) 130/98 (109) Pulse Ox 96 O2 Delivery Room Air Capillary Refill : Less Than 3 Seconds General Appearance: WD/WN, no apparent distress HEENT: PERRL/EOMI, normal ENT inspection Neck: non-tender, supple Respiratory: chest non-tender, no respiratory distress, no accessory muscle use Cardiovascular: regular rate, rhythm, no JVD Gastrointestinal: non tender, soft Rectal: deferred Back: no CVA tenderness, no vertebral tenderness Extremities: slow capillary refill, swelling, other (open wound b/l with skin fungating and tissue within wound foul smelling and skin fungating, edema up b/l legs) Neurologic/Psychiatric: alert, normal mood/affect, oriented x 3 Skin: No normal color (chronic venous changes b/l lower extremity) Lymphatic: no adenopathy Data Review Labs Laboratory Tests 04/16/22 23:03: White Blood Count 8.7, Red Blood Count 4.26L, Hemoglobin 16.9, Hematocrit 47, Mean Corpuscular Volume 109H, Mean Corpuscular Hemoglobin 40H, Mean Corpuscular Hemoglobin Concent 36, Red Cell Distribution Width 12.6, Platelet Count 255, Mean Platelet Volume 9.9, Immature Granulocyte % (Auto) 1, Neutrophils (%) (Auto) 74, Lymphocytes (%) (Auto) 16, Monocytes (%) (Auto) 7, Eosinophils (%) (Auto) 1, Basophils (%) (Auto) 0, Neutrophils # (Auto) 6.5, Lymphocytes # (Auto) 1.4, Monocytes # (Auto) 0.6, Eosinophils # (Auto) 0.1, Basophils # (Auto) 0.0, Immature Granulocyte # (Auto) 0.1, Erythrocyte Sedimentation Rate 17H, Prothrombin Time 13.4, INR Comment 1.0, Activated Partial Thromboplast Time 29, Sodium Level 135, Potassium Level 3.5L, Chloride Level 99, Carbon Dioxide Level 20L, Anion Gap 16H, Blood Urea Nitrogen 12, Creatinine 0.73, Estimat Glomerular Filtration Rate 117, BUN/Creatinine Ratio 16, Glucose Level 138H, Lactic Acid Level 1.84, Calcium Level 9.4, Corrected Calcium 9.8, Magnesium Level 1.8, Total Bilirubin 0.8, Aspartate Amino Transf (AST/SGOT) 19, Alanine Aminotransferase (ALT/SGPT) 18, Alkaline Phosphatase 159H, Total Creatine Kinase 44, Creatine Kinase MB 4.0, Myoglobin 61.9, C-Reactive Protein High Sensitivity 1.00H, Total Protein 7.2, Albumin 3.5, Procalcitonin 2.37H, Serum Alcohol < 10 04/16/22 23:10: Urine Color YELLOW, Urine Clarity CLEAR, Urine pH 5.5, Urine Specific Carlton >=1.030, Urine Protein 2+H, Urine Glucose (UA) TRACEH, Urine Ketones TRACEH, Urine Nitrite POSITIVEH, Urine Bilirubin 2+H, Urine Urobilinogen 1.0, Urine Leukocyte Esterase NEGATIVE, Urine RBC (Auto) NEGATIVE, Urine RBC 5-10H, Urine WBC 10-25H, Urine Squamous Epithelial Cells NONE, Urine Crystals PRESENTH, Urine Calcium Oxalate Crystals MODERATEH, Urine Bacteria LARGEH, Urine Casts PRESENT, Urine Hyaline Casts >50H, Urine Granular Casts 10-25H, Urine Mucus MODERATEH, Urine Culture Indicated CULTURE PENDING, Urine Opiates Screen NEGATIVE, Urine Oxycodone Screen NEGATIVE, Urine Methadone Screen NEGATIVE, Urine Propoxyphene Screen NEGATIVE, Urine Barbiturates Screen NEGATIVE, Ur Tricyclic Antidepressants Screen NEGATIVE, Urine Phencyclidine Screen NEGATIVE, Urine Amphetamines Screen NEGATIVE, Urine Methamphetamines Screen NEGATIVE, Urine B enzodiazepines Screen NEGATIVE, Urine Cocaine Screen NEGATIVE, Urine Cannabinoids Screen NEGATIVE 04/16/22 23:23: Influenza Type A (RT-PCR) Not Detected, Influenza Type B (RT-PCR) Not Detected, SARS-CoV-2 RNA (RT-PCR) Not Detected 04/17/22 05:35: White Blood Count 7.1, Red Blood Count 3.50L, Hemoglobin 13.9, Hematocrit 39L, Mean Corpuscular Volume 112H, Mean Corpuscular Hemoglobin 40H, Mean Corpuscular Hemoglobin Concent 35, Red Cell Distribution Width 12.7, Platelet Count 192, Mean Platelet Volume 10.0, Immature Granulocyte % (Auto) 1, Neutrophils (%) (Auto) 70, Lymphocytes (%) (Auto) 18, Monocytes (%) (Auto) 9, Eosinophils (%) (Auto) 3, Basophils (%) (Auto) 0, Neutrophils # (Auto) 4.9, Lymphocytes # (Auto) 1.3, Monocytes # (Auto) 0.6, Eosinophils # (Auto) 0.2, Basophils # (Auto) 0.0, Immature Granulocyte # (Auto) 0.1, Sodium Level 136, Potassium Level 3.0L, Chlor sanjeev Level 104, Carbon Dioxide Level 21, Anion Gap 11, Blood Urea Nitrogen 10, Creatinine 0.59L, Estimat Glomerular Filtration Rate 125, BUN/Creatinine Ratio 17, Glucose Level 105, Calcium Level 7.9L, Corrected Calcium 9.0, Total Bilirubin 0.6, Aspartate Amino Transf (AST/SGOT) 15, Alanine Aminotransferase (ALT/SGPT) 15, Alkaline Phosphatase 110, Total Protein 5.1L, Albumin 2.6L Assessment/Plan Assessment/Plan Assessment/Plan b/l lower extremity gangrene open wound feet b/l left superficial femoral and popliteal artery occlusion with reconstitution into calf diffuse osseous demineralization of b/l feet lower extremity pain b/l noncompliance b/l venous stasis patient is a 41 year old with b/l lower extremity wounds with gangrene we discussed due to the chronic wound and current condition of the lower legs and feet these are not salvageable. He is in agreement. Due to current infection will need to amputate b/l and keep wounds open. May need to revise at a later date and will require wound care. Concern for blood supply and healing obtaining a CTA with b/l runoff to help determine blood supply but we discussed this will not change current p victoriano to remove the infection with amputation b/l. He understands risks and benefits of bilateral lower extremity amputation (likely bka's) and wishes to proceed. NPO Continue abx consent . CHASE GONZALEZ DO Apr 17, 2022 07:14
--- NOTE | 2022-04-17 07:28 | Diagnostic Imaging Report ---
EXAMINATION: Bilateral foot radiograph EXAM DATE: 04/16/2022 11:55 PM COMPARISON: 08/23/2021 HISTORY: foot pain TECHNIQUE: 2 views FINDINGS: There is diffuse osseous demineralization seen throughout the bilateral feet. There has been surgical amputation of the right 3rd, 4th and 5th phalanges as well as the left 3rd, 4th and 5th phalanges. Surgical change or erosion of the distal left 4th metatarsal. There is no obvious fracture seen. No obvious erosion. Evaluation is limited secondary to diffuse osseous demineralization. There is extensive soft tissue swelling seen throughout the bilateral feet. IMPRESSION: 1. Significant surgical changes of the bilateral feet with diffuse osseous demineralization. This does limit evaluation for acute fracture and focal erosion. There may be an erosive process occurring along the distal aspect of the left 4th metatarsal. No other acute osseous abnormality. Dictated by: Dictated on workstation # [id number]
[2022-04-17] MEDS: VANCOMYCIN 1250 MG/NS 250 ML IVPB IV SCH ×6 (08:02→23:25)
[2022-04-17] MEDS ORDERED: CATHETER FLUSH 10 ML SYR IV PRN (09:15)
[2022-04-17] MEDS ORDERED: IOHEXOL 350 MG/ML 150 ML (OMNIPAQUE 350) VIAL IV ONE (09:15)
[2022-04-17] MEDS ORDERED: HOLD METFORMIN - RECEIVED CONTRAST 20 ML VIAL IV SCH (09:15)
[2022-04-17] MEDS ORDERED: NS 100 ML (IVPB) BAG IV ONE (09:15)
--- NOTE | 2022-04-17 11:37 | Diagnostic Imaging Report ---
INDICATION: Gangrene. Cellulitis. Osteomyelitis. COMPARISON: None. TECHNIQUE: Routine post contrast CTA of the abdomen, pelvis, and bilateral lower extremities was performed. Contrast bolus was injected intravenously and timed for optimal opacification of the arterial structures. Multiplanar and 3D reformats were also created and reviewed. Auto Exposure Controls were utilized during the CT exam to meet ALARA standards for radiation dose reduction. FINDINGS: CTA ABDOMEN: There is moderate calcified and noncalcified aortic atherosclerosis. Based on NASCET criteria, this results in approximately 40% stenosis at the level just inferior to the origin of the renal arteries. There is no evidence of dissection or aneurysm. The celiac trunk and superior mesenteric arteries and their major branches are widely patent. There is a single renal artery on the left. Two renal arteries are identified on the right. The bilateral renal arteries are widely patent as well. The visualized portions of the colon show moderate distention with air-fluid levels scattered throughout. There is mild mucosal hyperenhancement of the colon wall diffusely. There is no pneumatosis, pneumoperitoneum, or portal venous gas. A normal appendix is identified. The small bowel loops are nondistended. The kidneys, adrenal glands, and pancreas have a normal CT appearance. The spleen and pancreas are not entirely included in the [id number] but have an unremarkable CT appearance as well. Several borderline prominent retroperitoneal lymph nodes are identified. No abnormal mesenteric adenopathy is seen. There is no free fluid or loculated air-fluid collection within the abdomen. The osseous structures show no acute abnormalities. CTA PELVIS: There is mild atherosclerotic disease of the aortic bifurcation and right common iliac artery. The iliofemoral arteries otherwise show no focal significant stenosis. The urinary bladder is unopacified. No calculi are seen within the urinary bladder. There is no loculated fluid collection, free fluid, or free air within the pelvis. Multiple enlarged bilateral inguinal lymph nodes are identified. A reference lymph node on the left measures 1.4 x 2.1 cm. A reference lymph node on the right measures 1.4 x 2.3 cm. CTA LEFT LOWER EXTREMITY: The left superficial femoral artery is occluded throughout its course. The popliteal artery is also occluded. There is reconstitution of the anterior and posterior tibial arteries. There is also faint reconstitution of the peroneal artery. There is normal enhancement of the distal posterior tibial artery in its plantar bifurcation. There is also normal enhancement of the dorsalis pedis artery. There is moderate generalized diffuse soft tissue edema. No focal fluid collections are identified. No acute fracture or dislocation is seen. RIGHT LOWER EXTREMITY ARTERIAL SYSTEM: There is mild eccentric atherosclerotic disease of the right common femoral artery. The right superficial femoral artery is widely patent without evidence of focal significant stenosis as is the popliteal artery. The popliteal trifurcation is unremarkable. There is normal enhancement of the anterior tibial, posterior tibial, and peroneal arteries. There is normal enhancement of the dorsalis pedis artery. The plantar arteries are diminutive. There is moderate generalized diffuse soft tissue edema of the right lower extremity as well. No acute fracture or dislocation is identified. IMPRESSION: 1. Moderate calcified and noncalcified atherosclerotic disease of the abdominal aorta but no focal significant stenosis, aneurysm, or evidence of dissection. 2. Complete occlusion of the left superficial femoral and popliteal arteries, age-indeterminate. 3. Patency of the right lower extremity arterial system from the right common iliac artery to the calf arteries. 4. Moderate dilatation of the colon with multiple air-fluid levels and mild mucosal hyperenhancement to the colon. Findings are nonspecific but may be on the basis of infectious or inflammatory colitis. Not mentioned above, there is poor visualization of the inferior mesenteric artery. Although this pattern does not follow the FATEMEH vascular distribution, colonic ischemia cannot be entirely excluded. 5. Multiple borderline prominent retroperitoneal, abdominal, and prominent bilateral inguinal lymph nodes. These may be reactive. Other neoplastic lymphoproliferative process cannot be excluded. Dictated by: Dictated on workstation # [id number]
[2022-04-17] MEDS ORDERED: proPOfol 200 MG/20 ML (DIPRIVAN) VIAL IV ONE (13:33)
[2022-04-17] MEDS ORDERED: LIDOCAINE PF 2% 5 ML (XYLOCAINE) VIAL ONE (13:33)
[2022-04-17] MEDS ORDERED: MIDAZOLAM 2 MG/2 ML (VERSED) VIAL ONE (13:33)
[2022-04-17] MEDS ORDERED: ONDANSETRON 4 MG/2 ML (SDV) Z0FRAN ONE (13:33)
[2022-04-17] MEDS ORDERED: fentaNYL INJ 100 MCG/2 ML AMP ONE ×3 (13:33→16:03)
[2022-04-17] MEDS ORDERED: LACTATED RINGERS 1,000 ML IV PRN (14:45)
[2022-04-17] MEDS ORDERED: SEVOFLURANE (ULTANE) 15 ML INHAL SOLN ONE (15:21)
[2022-04-17] MEDS ORDERED: morphine INJ 10 MG/ML 1ML (SYR OR VIAL) ONE (15:42)
[2022-04-17] MEDS ORDERED: morphine INJ 10 MG/ML 1ML (SYR OR VIAL) IVP ONE (15:45)
[2022-04-17] MEDS ORDERED: fentaNYL INJ 100 MCG/2 ML AMP IVP ONE (15:45)
[2022-04-17] MEDS ORDERED: MEPERIDINE (DEMEROL) INJ 50 MG/ML IVP ONE (15:45)
[2022-04-17] MEDS ORDERED: ONDANSETRON 4 MG/2 ML (SDV) Z0FRAN IVP PRN (15:45)
--- NOTE | 2022-04-17 16:53 | History & Physical-Hospitalist ---
History of Present Illness HPI/Chief Complaint Alex Ma is a 41 year old male with PMH PAD, previous bilateral foot amputations, history of DVT, who presented with bilateral foot wounds. He has not been getting wound care. He has foul smelling, gangrenous bilateral foot wounds which have been progressively worsening. He denies any fevers or chills. He has not followed up since his previous admission. He has been wheelchair bound for some time. He has not been taking his blood thinners. He denies chest pain, shortness of breath, abdominal pain, nausea, vomiting, diarrhea, dysuria. Source: patient Exam Limitations: no limitations Date Seen 04/17/22 Time Seen by a Provider: 11:20 Attending Physician No,Local Physician PCP Admitting Physician: Maryanne Cordova DO Attending Physician: Ramin Flores MD Referring Physician Date of Admission Apr 16, 2022 at 23:45 Home Medications & Allergies Home Medications Reviewed patient Home Medication Reconciliation performed by pharmacy medication reconciliations master sonar technician and/or nursing. Patients Allergies have been reviewed. Allergies Allergies Coded Allergies No Known Drug Allergies (Fuwziyxeyp41/9/21) He denies allergies to drugs and food, says he has seasonal allergies Past Toriawm-Cxawim-Tgycwx Hx Patient Social History Tobacco Use?: Yes Tobacco type used: Cigarettes Smoking Status: Current Everyday Smoker Smokeless Tobacco Frequency: Never a User Use of E-Cig and/or Vaping dev: No Substance use?: No Alcohol Use?: Unable to obtain Alcohol type: Hard Liquor Alcohol Frequency: Daily Pt feels they are or have been: No Immunizations Up To Date First/Initial COVID19 Vaccinat: DOESN'T PLAN ON TAKING IT Second COVID19 Vaccination Bear: DOESN'T PLAN ON TAKING IT Tetanus Booster (TDap): Less Than 5 Years Hepatitis A: Yes Hepatitis B: Yes Seasonal Allergies Seasonal Allergies: Yes Current Status Advance Directives: Unable to obtain Communicates: Verbally Primary Language: Zimbabwean Preferred Spoken Language: Zimbabwean Is interpretation needed?: No Implanted or Applied Medical D: None Past Medical History Surgeries: Abdominal, Orthopedic Deep Vein Thrombosis, Peripheral Vascular Amputee Psoriasis Blood Disorders: Yes (DVT'S) Family Medical History No Pertinent Family Hx, Other Conditions/Hx EXTREME NON-COMPLIANCE IN ALL ASPECTS OF CARE SOCIAL HISTORY: -SMOKES 2-3 PPD -ETOH--DRINKS 1.75 LITERS OF HARD LIQUOR DAILY--STATES LATELY HE HAS ONLY BEEN DRINKING "3 OR 4 GLASSES" OF HARD LIQUOR/DAY. 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 -ALL TEETH REMOVED -HERNIA REPAIR Review of Systems Constitutional: no symptoms reported EENTM: no symptoms reported Respiratory: no symptoms reported Cardiovascular: no symptoms reported Gastrointestinal: no symptoms reported Genitourinary: no symptoms reported Musculoskeletal: no symptoms reported Skin: change in color, lesions Psychiatric/Neurological: No Symptoms Reported Physical Exam Physical Exam Vital Signs Vital Signs - First Documented 04/16/22 04/17/22 22:58 15:29 Temp 36.5 Pulse 123 Resp 16 B/P (MAP) 130/98 (109) Pulse Ox 96 O2 Delivery Room Air O2 Flow Rate 10 Capillary Refill : Less Than 3 Seconds Height, Weight, BMI Height: '" Weight: lbs. oz. kg; 22.84 BMI Method: General Appearance: No Apparent Distress, WD/WN HEENT: PERRL/EOMI, Pharynx Normal Neck: Normal Inspection, Supple Respiratory: Lungs Clear, Normal Breath Sounds, No Respiratory Distress Cardiovascular: Regular Rate, Rhythm, No Murmur Gastrointestinal: Normal Bowel Sounds, Non Tender, Soft Extremity: Pedal Edema, Swelling, Other (bilateral foot wounds, malodorous) Neurologic/Psychiatric: Alert, Oriented x3, Normal Mood/Affect Skin: Other (bilateral foot wounds) Results Results/Procedures Labs Laboratory Tests 04/16/22 23:03 04/17/22 05:35 Patient resulted labs reviewed. Imaging: Reviewed Imaging Report Assessment/Plan Admission Diagnosis Gangrene of bilateral feet due to peripheral vascular disease Admission Status: Inpatient Order (span 2 midnights) Reason for Inpatient Admission: Amputations Assessment and Plan Gangrene of bilateral feet PAD History of DVT Tobacco abuse Medical non-compliance XR feet with diffuse osseous demineralization CT consistent with PAD left lower extremity, total occlusion of superficial femoral and popliteal, consistent with prior studies, poor visualization of FATEMEH distrubution Previous admission revealed unlikely amenable to intervention, refused further evaluation Surgery consulted Planning for bilateral BKA Consult wound care Obtain ultrasound to evaluate for DVTs account services associate consult Diagnosis/Problems Diagnosis/Problems (1) Gangrene due to peripheral vascular disease Status: Acute (2) Gangrene of both feet Status: Acute (3) Peripheral vascular disease Status: Acute (4) History of DVT (deep vein thrombosis) Status: Chronic (5) Tobacco abuse Status: Chronic (6) Medical non-compliance Status: Chronic RAMIN FLORES MD Apr 17, 2022 16:53
--- NOTE | 2022-04-17 18:12 | Progress Note-Post Operative ---
Post-Operative Progess Note Surgeon (s)/Oil Painter (s) Surgeon CHASE GONZALEZ DO Oil Painter: Dr. Javier Pre-Operative Diagnosis b/l gangrene feet Post-Operative Diagnosis same Procedure & Operative Findings Date of Procedure 04/17/22 Procedure Performed/Findings bilateral below knee amputation Anesthesia Type general Estimated Blood Loss Estimated blood loss (mL): 450mL Specimens/Packing Specimens Removed b/l lower ext CHASE GONZALEZ DO Apr 17, 2022 18:12
[2022-04-18] MEDS: HYDROmorphone 2 MG/ML VIAL (DILAUDID) IV PRN ×7 (02:13→20:26)
[2022-04-18 03:30] VITALS: BP 101/59
[2022-04-18] MEDS: LACTATED RINGERS 1,000 ML IV SCH ×3 (04:45→17:48)
[2022-04-18] MEDS: PIPERACILLIN SODIUM/TAZOBACTAM 4.5 GM in NS (IVPB) 100 ML IV SCH ×3 (05:39→20:25)
--- NOTE | 2022-04-18 05:58 | OPERATIVE REPORT ---
DATE OF SERVICE: 04/17/2022 PREOPERATIVE DIAGNOSIS: Bilateral gangrene feet. POSTOPERATIVE DIAGNOSIS: Bilateral gangrene feet. PROCEDURE: Bilateral below-knee amputation. SURGEON: Chase Fernandez DO. STONER OUT: Dr. Javier, assisted in retraction, dissection and . ANESTHESIA: General. ESTIMATED BLOOD LOSS: 450 mL. COMPLICATIONS: None. INDICATIONS: The patient is a 41-year-old male who has gangrene of the bilateral feet. He has had chronic wound since 07/2021 and has had difficulty making it to appointments for further care. He returned to the Emergency Department last night with worsening wounds. He was discussed risks and benefits of procedure and wishes to proceed, understands there will need to be a revision surgery but to get rid of the infection now, he needs to have bilateral below-knee amputation and keeping the wounds opened with further wound care. Consent was signed in the chart. DESCRIPTION OF PROCEDURE: The patient was taken to the operating suite, was prepped and draped in sterile fashion. Timeout was performed. The right leg tourniquet was placed on proximally midcalf. Cautery used to divide the skin circumferentially and began going through the subcutaneous tissue and muscles until the tibia was encountered. The tibia was then dissected around, and the tissues were released off of the tibia proximally. A bone saw was then used to cut the tibia and continue to divide the musculature. The tibia was encountered, which the tissues were released off of the fibula as well and then this was then transected with a bone saw as well. As the vascular bundles were encountered, hemostats were placed on these and the subcutaneous tissues were then continued to be dissected through along with the muscle until the distal leg and foot were removed. The vascular bundles were then tied with 0 Vicryls to achieve hemostasis. The tourniquet was then taken down. Hemostasis was achieved. The tissues had a fair amount of edema throughout the entire leg as it was going through. The muscle had viable appearance. The wound was then packed. The left tourniquet was then turned on and in the exact same fashion the left lower extremity was amputated below the knee. Once hemostasis was achieved, the wounds were placed with Kerlix. ABD pads were then placed over it and Coban was then placed to secure. The patient tolerated the procedure well without any complications and taken to recovery room in stable condition. Job ID: [id number] DocumentID: [id number] Dictated Date: 04/17/2022 21:06:30 Digital Watch Assembler Date: 04/18/2022 05:57:29 Dictated By: CHASE FERNANDEZ DO
[2022-04-18] MEDS ORDERED: TROUGH ORDER-PHARMACY XX ONE ×2 (06:00→14:00)
[2022-04-18 06:11] LABS: BASOPHILS % (AUTO) 0 % (0-10); EOSINOPHILS # (AUTO) 0.1 10^3/uL (0.0-0.3); EOSINOPHILS % (AUTO) 2 % (0-10); HEMATOCRIT 35 % (40-54); HEMOGLOBIN 11.8 g/dL (13.3-17.7); LYMPHOCYTES # (AUTO) 1.6 10^3/uL (1.0-4.0); LYMPHOCYTES % (AUTO) 23 % (12-44); MEAN CORPUSCULAR HEMOGLOBIN 40 pg (25-34); MEAN CORPUSCULAR HGB CONC 34 g/dL (32-36); MEAN CORPUSCULAR VOLUME 117 fL (80-99); MEAN PLATELET VOLUME 10.1 fL (9.0-12.2); MONOCYTES # (AUTO) 0.7 10^3/uL (0.0-1.0); MONOCYTES % (AUTO) 10 % (0-12); NEUTROPHILS # (AUTO) 4.5 10^3/uL (1.8-7.8); NEUTROPHILS % (AUTO) 65 % (42-75); PLATELET COUNT 211 10^3/uL (130-400); WHITE BLOOD COUNT 6.9 10^3/uL (4.3-11.0)
[2022-04-18 06:22] LABS: ALBUMIN 2.3 GM/DL (3.2-4.5)
[2022-04-18 06:24] LABS: CALCIUM 7.2 MG/DL (8.5-10.1)
[2022-04-18 06:25] LABS: TOTAL PROTEIN 4.5 GM/DL (6.4-8.2)
[2022-04-18 06:27] LABS: BILIRUBIN,TOTAL 0.4 MG/DL (0.1-1.0)
[2022-04-18 06:28] LABS: CREATININE SERUM 0.59 MG/DL (0.60-1.30)
[2022-04-18 06:40] LABS: VANCOMYCIN,TROUGH 28.2 UG/ML (10.0-20.0)
[2022-04-18] MEDS: VANCOMYCIN 1250 MG/NS 250 ML IVPB IV SCH ×2 (06:42)
--- NOTE | 2022-04-18 07:25 | Anesthesia-General Post-Op ---
General Patient Condition Mental Status/LOC: Same as Preop Cardiovascular: Satisfactory Nausea/Vomiting: Absent Respiratory: Satisfactory Pain: Controlled Complications: Absent Post Op Complications Complications None Follow Up Care/Instructions Patient Instructions None needed. Anesthesia/Patient Condition Patient Condition Patient is doing well, no complaints, stable vital signs, no apparent adverse anesthesia problems. No complications reported per nursing. D/C home per [facility] [place] Criteria: Yes ANNE CROFT CRNA Apr 18, 2022 07:25
[2022-04-18] MEDS: NS IV 500 ML 500 ML IV SCH (08:03)
[2022-04-18] MEDS: POTASSIUM CL 10MEQ/50ML IVPB 50 ML IV SCH ×4 (08:03→10:08)
[2022-04-18 08:11] VITALS: BP 111/68
--- NOTE | 2022-04-18 10:12 | Diagnostic Imaging Report ---
PROCEDURE: US Venous Lower Ext Luan. TECHNIQUE: Multiple real-time grayscale images were obtained over the lower extremities in various projections, bilaterally. Additional duplex Doppler and color Doppler images were also obtained. INDICATION: Recent bilateral BK amputation. Pain and swelling to thighs. FINDINGS: There is partial nonocclusive thrombus throughout the lower extremities bilaterally within the venous system from the common femoral vein distally. IMPRESSION: Nonocclusive thrombus throughout the venous system of the lower extremities bilaterally. Dictated by: Dictated on workstation # [id number]
[2022-04-18] MEDS: MAGNESIUM 1 GM/100 ML IVPB 100 ML IV SCH ×4 (11:23→13:37)
[2022-04-18 11:34] VITALS: BP 99/66
[2022-04-18] MEDS ORDERED: HYPOCHLOROUS ACID/NaCl (VASHE) 250 ML IR SCH (12:15)
--- NOTE | 2022-04-18 12:23 | Wound Care Assessment ---
Wound Care Assessment Date Seen by Provider: Apr 18, 2022 Time Seen by Provider: 12:10 Chief Complaint Bilateral emergent BKA (guillotine) for gangrene of feet HPI This unfortunate 41 year old male was admitted with gangrenous chronic wound of b/l feet. He was previously admitted to the hospital with toe amputations for arterial ulcers in past. Unfortunately, he failed to follow up as recommended with the wound care clinic. Alex lives in a trailer in [place] with his . 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 On admit Alex was found on plain film to have diffuse osseus demineralization and erosions of L. 4 metatarsal. He was also found on CTA to have bilateral arterial disease with complete occlusion of left superficial femoral and popliteal arteries. He did also have non-occlusive diffuse thrombus on bilateral venous studies. Alex was supposed to be on Xarelto as an outpatient and did not comply with taking this medication. Alex has a h/o smoking 2-3 ppd and drinking 1.7L of hard liquor daily. He states that he is now smoking "only" 1ppd and drinking 3 8oz glasses of liquor daily. Alex does not have a vehicle for transportation to wound care follow up. He states that he will take a cab. He states that he is getting a ramp put in currently that will assist in this endeavor. Alex does also have PEM (see albumin from admit) and is being supplemented with Ensure. He notes that he has lost significant weight in the last year. Alex had bilateral emergent guillotine BKA yesterday for his gangrene. His wound bed is pale and without good granulation today. He does continue to have edema (though improved per patient). He is on broad spectrum antibiotics. Wound cultures were obtained and are pending. Antibiotics will need to be targeted (per primary team). Alex has significant pain. He did not tolerate wound vac on last admission due to pain. He had significant pain just with removal of packing today (screaming throughout exam despite minimal manipulation). I am not optimistic about Alex's healing with either revision and closure (high risk of flap failure) or with regular weekly wound care (due to poor vascular supply and follow up/infection concerns). I have discussed his case with surgery and plan is for monitoring through the weekend with antibiotics to see if improved granulation can be acheived. Past Medical History: Admits Deep Vein Thrombosis, Admits Peripheral Artery Disease Recurrent DVT, recurrent gangrenous infections, non compliance with all aspects of medical care Smoking Status: Current Everyday Smoker (1-3ppd) Recreational Drug Use: No Alcohol Use: Regular Use (24oz-1.7L hard liquor daily) Review of Systems General: Other (Significant unexplained weight loss) Neurological: Weakness Exam Vital Signs Date Time Temp Pulse Resp B/P (MAP) Pulse Ox O2 Delivery O2 Flow Rate FiO2 04/18/22 11:34 36.9 101 20 99/66 (77) 95 Room Air 04/17/22 16:00 10 Capillary Refill : Less Than 3 Seconds General Appearance: severe distress (with any manipulation of lower extremities (screamining in pain)), thin Neck: full range of motion Cardiovascular: other (pale wound bed) Respiratory: no respiratory distress, no accessory muscle use Extremities: pedal edema (2+ edema below knee) Neurologic/Psychiatric: alert, oriented x 3, other (irritable) Skin: other (hyperpigmentation with edema below knee bilaterally) Skin Character: drainage (serosanguinous), swelling, tenderness wound assessment: Bilateral guillotine amputations left open. Wound bed with moderate serosanguinous drainage. Wound bed is primarily pale currently. Bone, muscle, tendon, fascia exposed. Results Laboratory Tests 04/18/22 05:45: White Blood Count 6.9, Red Blood Count 2.96L, Hemoglobin 11.8L, Hematocrit 35L, Mean Corpuscular Volume 117H, Mean Corpuscular Hemoglobin 40H, Mean Corpuscular Hemoglobin Concent 34, Red Cell Distribution Width 13.2, Platelet Count 211, Mean Platelet Volume 10.1, Immature Granulocyte % (Auto) 0, Neutrophils (%) (Auto) 65, Lymphocytes (%) (Auto) 23, Monocytes (%) (Auto) 10, Eosinophils (%) (Auto) 2, Basophils (%) (Auto) 0, Neutrophils # (Auto) 4.5, Lymphocytes # (Auto) 1.6, Monocytes # (Auto) 0.7, Eosinophils # (Auto) 0.1, Basophils # (Auto) 0.0, Immature Granulocyte # (Auto) 0.0, Sodium Level 134L, Potassium Level 3.0L, Chloride Level 104, Carbon Dioxide Level 22, Anion Gap 8, Blood Urea Nitrogen 6L , Creatinine 0.59L, Estimat Glomerular Filtration Rate 125, BUN/Creatinine Ratio 10, Glucose Level 93, Calcium Level 7.2L, Corrected Calcium 8.6, Magnesium Level 1.3L, Total Bilirubin 0.4, Aspartate Amino Transf (AST/SGOT) 12, Alanine Aminotransferase (ALT/SGPT) 13, Alkaline Phosphatase 87, Total Protein 4.5L, Albumin 2.3L, Vancomycin Level Trough 28.2*H Microbiology 04/17/22 MRSA Screen - Final, Complete MRSA not isolated 04/16/22 Gram Stain - Final, Resulted 04/16/22 Wound Culture - Preliminary, Resulted Gram Negative Richard 04/16/22 Blood Culture - Preliminary, Resulted No growth 04/16/22 Urine Culture - Final, Complete Mixed Bacterial Aleta Microbiology 04/17/22 MRSA Screen - Final, Complete MRSA not isolated 04/16/22 Gram Stain - Final, Resulted 04/16/22 Wound Culture - Preliminary, Resulted Gram Negative Richard 04/16/22 Gram Stain - Final, Resulted 04/16/22 Wound Culture - Preliminary, Resulted Mixed Bacterial Aleta Gram Negative Richard Testing In Progress 04/16/22 Blood Culture - Preliminary, Resulted No growth 04/16/22 Urine Culture - Final, Complete Mixed Bacterial Aleta 04/16/22 Blood Culture - Preliminary, Resulted No growth Assessment/Plan/Dx Assessment: 1. 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 Cellulitis 3. Alcohol abuse 4. Heavy tobacco abuse 5. Severe PAD 6. Venous disease with non-occlusive thrombus 7. Lymphedema 8. PEM 9. Noncompliance with medications, follow up and lifestyle changes Plan: 1. Cleanse daily with Vashe. Xeroform to wound bed with ABD, kerlix and secure with XANDER. Change daily and prn for saturation. 2. Targeted antibiotics per cultures 3. Counseled on cessation 4. Counseled on cessation 5. Counseled on risks of further disease, failure of healing. Patient verbalizes understanding 6. Compliance with anticoagulation encouraged 7. XANDER wrap 8. Protein supplementation already ordered 9. This case is a complex social situation. I am not optimistic wound healing can be obtained with current social setting/living environment. We will follow along through his stay. HARLEEN SMITH MD Apr 18, 2022 12:23
[2022-04-18] MEDS ORDERED: LORazepam INJ 2 MG/ML (ATIVAN) VIAL IM NR (15:15)
[2022-04-18 15:17] VITALS: BP 107/59
--- NOTE | 2022-04-18 16:30 | Progress Note - Hospitalist ---
Subjective HPI/CC On Admission Date Seen by Provider: Apr 18, 2022 Time Seen by Provider: 10:05 Alex Ma is a 41 year old male with PMH PAD, previous bilateral foot amputations, history of DVT, who presented with bilateral foot wounds. He has not been getting wound care. He has foul smelling, gangrenous bilateral foot wounds which have been progressively worsening. He denies any fevers or chills. He has not followed up since his previous admission. He has been wheelchair bound for some time. He has not been taking his blood thinners. He denies chest pain, shortness of breath, abdominal pain, nausea, vomiting, diarrhea, dysuria. Subjective/Events-last exam He is sleepy. He is not in much pain since he just got pain medicine. He has no other complaints. Focused Exam Lactate Level 04/16/22 23:03: Lactic Acid Level 1.84 Objective Exam Vital Signs Vital Signs Date Time Temp Pulse Resp B/P (MAP) Pulse Ox O2 Delivery O2 Flow Rate FiO2 04/18/22 15:17 37.5 93 20 107/59 (75) 95 Room Air 04/17/22 16:00 10 Capillary Refill : Less Than 3 Seconds General Appearance: No Apparent Distress, Chronically ill Respiratory: Lungs Clear, No Respiratory Distress Cardiovascular: Regular Rate, Rhythm, No Murmur Gastrointestinal: Normal Bowel Sounds, Soft Extremity: Swelling, Other (bialteral BKA) Neurologic/Psychiatric: Alert, Normal Mood/Affect Results/Procedures Lab Laboratory Tests 04/18/22 05:45 Patient resulted labs reviewed. Imaging: Reviewed Imaging Report Assessment/Plan Assessment and Plan Assess & Plan/Chief Complaint Gangrene of bilateral feet s/p BKA, bilateral PAD Acute DVT Tobacco abuse Medical non-compliance Surgery following Case discussed with Dr. Fernandez s/p bilateral BKA 04/17 Wound care following Ultrasound consistent with extensive DVTs Begin [facility] following Diagnosis/Problems Diagnosis/Problems (1) Gangrene due to peripheral vascular disease Status: Acute (2) Gangrene of both feet Status: Acute (3) Peripheral vascular disease Status: Acute (4) History of DVT (deep vein thrombosis) Status: Chronic (5) Tobacco abuse Status: Chronic (6) Medical non-compliance Status: Chronic (7) Acute deep vein thrombosis (DVT) of both lower extremities Status: Acute Qualifiers: Affected thrombotic vein of extremity: femoral Qualified Codes: I82.413 - Acute embolism and thrombosis of femoral vein, bilateral RAMIN FLORES MD Apr 18, 2022 16:30
[2022-04-18 19:42] VITALS: BP 105/58
[2022-04-18] MEDS: APIXABAN 5 MG (ELIQUIS) TABLET PO SCH (20:24)
--- NOTE | 2022-04-18 21:28 | Progress Note - Surgery ---
Subjective Date Seen by a Provider: Apr 18, 2022 Time Seen by a Provider: 17:20 Subjective/Events-last exam Patient doing well. His pain is better controlled. His wounds were just changed and that no active bleeding. Foul smell of wound has resolved at this time. Denies nausea vomiting fever sweats chills shortness of breath or chest pain. Focused Exam Lactate Level 04/16/22 23:03: Lactic Acid Level 1.84 Objective Exam Vital Signs Date Time Temp Pulse Resp B/P (MAP) Pulse Ox O2 Delivery O2 Flow Rate FiO2 04/18/22 19:42 37.5 95 16 105/58 (74) 98 Room Air 04/18/22 19:00 91 04/18/22 18:42 Room Air 0.00 04/18/22 15:17 37.5 93 20 107/59 (75) 95 Room Air 04/18/22 13:37 96 04/18/22 11:34 36.9 101 20 99/66 (77) 95 Room Air 04/18/22 08:12 97 Room Air 04/18/22 08:11 37.0 99 20 111/68 (82) 96 Room Air 04/18/22 07:00 96 04/18/22 03:30 36.6 94 12 101/59 (73) 97 Room Air 04/18/22 01:00 90 04/17/22 23:25 37.9 99 16 96/55 (69) 95 Room Air I & O 04/18/22 07:00 Intake Total 5300 ml Output Total 1750 ml Balance 3550 ml Capillary Refill : Less Than 3 Seconds General Appearance: No Apparent Distress, Chronically ill HEENT: PERRL/EOMI, Pharynx Normal Neck: Normal Inspection, Supple Respiratory: Lungs Clear, No Respiratory Distress Cardiovascular: Regular Rate, Rhythm, No Murmur Gastrointestinal: non tender, soft Extremity: Swelling, Other (bialteral BKA) Neurologic/Psychiatric: Alert, Oriented x3, Normal Mood/Affect Skin: Normal Color, Warm/Dry Lymphatic: No Adenopathy Results Lab Laboratory Tests 04/18/22 05:45: White Blood Count 6.9, Red Blood Count 2.96L, Hemoglobin 11.8L, Hematocrit 35L, Mean Corpuscular Volume 117H, Mean Corpuscular Hemoglobin 40H, Mean Corpuscular Hemoglobin Concent 34, Red Cell Distribution Width 13.2, Platelet Count 211, Mean Platelet Volume 10.1, Immature Granulocyte % (Auto) 0, Neutrophils (%) (Auto) 65, Lymphocytes (%) (Auto) 23, Monocytes (%) (Auto) 10, Eosinophils (%) ( Auto) 2, Basophils (%) (Auto) 0, Neutrophils # (Auto) 4.5, Lymphocytes # (Auto) 1.6, Monocytes # (Auto) 0.7, Eosinophils # (Auto) 0.1, Basophils # (Auto) 0.0, Immature Granulocyte # (Auto) 0.0, Sodium Level 134L, Potassium Level 3.0L, Chloride Level 104, Carbon Dioxide Level 22, Anion Gap 8, Blood Urea Nitrogen 6L , Creatinine 0.59L, Estimat Glomerular Filtration Rate 125, BUN/Creatinine Ratio 10, Glucose Level 93, Calcium Level 7.2L, Corrected Calcium 8.6, Magnesium Level 1.3L, Total Bilirubin 0.4, Aspartate Amino Transf (AST/SGOT) 12, Alanine Aminotransferase (ALT/SGPT) 13, Alkaline Phosphatase 87, Total Protein 4.5L, Albumin 2.3L, Vancomycin Level Trough 28.2*H Microbiology 04/17/22 MRSA Screen - Final, Complete MRSA not isolated 04/16/22 Gram Stain - Final, Resulted 04/16/22 Wound Culture - Preliminary, Resulted Mixed Bacterial Aleta Gram Negative Richard 04/16/22 Blood Culture - Preliminary, Resulted No growth 04/16/22 Urine Culture - Final, Complete Mixed Bacterial Aleta Assessment/Plan Assessment/Plan Assessment/Plan b/l lower extremity gangrene open wound feet b/l left superficial femoral and popliteal artery occlusion with reconstitution into calf diffuse osseous demineralization of b/l feet lower extremity pain b/l noncompliance b/l venous stasis Status post right below-knee amputation with open wounds. Patient doing well. Wound care evaluating. Eventually will need vascular consult to try to establish best blood flow to the area. Revising at this time would not guarantee healing. Patient informed that he will need to be very compliant with wound care and for future hopes of having the areas revised without losing more of his lower extremities and if not worsening becoming septic and dying. Patient is in agreement with complying at this time. He understands that he needs to take care of himself. Continue antibiotics. . CHASE GONZALEZ DO Apr 18, 2022 21:28
[2022-04-19] VITALS: BP 107/57
[2022-04-19] MEDS: NS IV 500 ML 500 ML IV SCH ×2 (00:40→09:14)
[2022-04-19] MEDS: LACTATED RINGERS 1,000 ML IV SCH ×4 (00:41→21:36)
[2022-04-19 04:00] VITALS: BP 105/56
[2022-04-19] MEDS: PIPERACILLIN SODIUM/TAZOBACTAM 4.5 GM in NS (IVPB) 100 ML IV SCH ×3 (05:06→21:35)
[2022-04-19 06:31] LABS: BASOPHILS % (AUTO) 0 % (0-10); EOSINOPHILS # (AUTO) 0.2 10^3/uL (0.0-0.3); EOSINOPHILS % (AUTO) 3 % (0-10); HEMATOCRIT 33 % (40-54); HEMOGLOBIN 11.2 g/dL (13.3-17.7); LYMPHOCYTES % (AUTO) 18 % (12-44); MEAN CORPUSCULAR HEMOGLOBIN 40 pg (25-34); MEAN CORPUSCULAR HGB CONC 34 g/dL (32-36); MEAN CORPUSCULAR VOLUME 117 fL (80-99); MEAN PLATELET VOLUME 9.7 fL (9.0-12.2); MONOCYTES # (AUTO) 0.5 10^3/uL (0.0-1.0); MONOCYTES % (AUTO) 9 % (0-12); NEUTROPHILS # (AUTO) 3.9 10^3/uL (1.8-7.8); NEUTROPHILS % (AUTO) 69 % (42-75); PLATELET COUNT 162 10^3/uL (130-400); WHITE BLOOD COUNT 5.6 10^3/uL (4.3-11.0)
[2022-04-19 06:41] LABS: ALBUMIN 2.1 GM/DL (3.2-4.5); POTASSIUM 3.3 MMOL/L (3.6-5.0)
[2022-04-19 06:43] LABS: CALCIUM 7.3 MG/DL (8.5-10.1)
[2022-04-19 06:44] LABS: TOTAL PROTEIN 4.4 GM/DL (6.4-8.2)
[2022-04-19 06:46] LABS: BILIRUBIN,TOTAL 0.3 MG/DL (0.1-1.0)
[2022-04-19 06:47] LABS: CREATININE SERUM 0.53 MG/DL (0.60-1.30)
[2022-04-19 06:50] LABS: MAGNESIUM 1.9 MG/DL (1.6-2.4)
[2022-04-19] MEDS: MAGNESIUM 1 GM/100 ML IVPB 100 ML IV SCH (07:15)
[2022-04-19] MEDS: KCL 20 MEQ TAB (K-DUR) PO SCH (07:21)
[2022-04-19] MEDS: POTASSIUM CL 10MEQ/50ML IVPB 50 ML IV SCH ×4 (07:22→11:58)
[2022-04-19 07:47] VITALS: BP 107/66
[2022-04-19] MEDS: HYDROmorphone 2 MG/ML VIAL (DILAUDID) IV PRN ×5 (09:01→22:51)
[2022-04-19 11:58] VITALS: BP 116/58
[2022-04-19] MEDS: APIXABAN 5 MG (ELIQUIS) TABLET PO SCH ×2 (12:00→21:35)
[2022-04-19] MEDS ORDERED: AMOX1TAB12 PO (13:08)
[2022-04-19] MEDS ORDERED: APIX5TAB PO (13:08)
[2022-04-19 16:07] VITALS: BP 113/57
--- NOTE | 2022-04-19 16:19 | Progress Note - Hospitalist ---
Subjective HPI/CC On Admission Date Seen by Provider: Apr 19, 2022 Time Seen by Provider: 11:05 Alex Ma is a 41 year old male with PMH PAD, previous bilateral foot amputations, history of DVT, who presented with bilateral foot wounds. He has not been getting wound care. He has foul smelling, gangrenous bilateral foot wounds which have been progressively worsening. He denies any fevers or chills. He has not followed up since his previous admission. He has been wheelchair bound for some time. He has not been taking his blood thinners. He denies chest pain, shortness of breath, abdominal pain, nausea, vomiting, diarrhea, dysuria. Subjective/Events-last exam He is doing well. He wants to go home. His pain is well controlled. He is eating and drinking. We discussed the importance of taking Eliquis. Focused Exam Lactate Level 04/16/22 23:03: Lactic Acid Level 1.84 Objective Exam Vital Signs Vital Signs Date Time Temp Pulse Resp B/P (MAP) Pulse Ox O2 Delivery O2 Flow Rate FiO2 04/19/22 16:07 36.8 95 20 113/57 (75) 96 Room Air 04/19/22 08:00 0.00 Capillary Refill : Less Than 3 Seconds General Appearance: No Apparent Distress, Chronically ill Respiratory: Lungs Clear, No Respiratory Distress Cardiovascular: Regular Rate, Rhythm, No Murmur Gastrointestinal: Normal Bowel Sounds, Soft Extremity: Normal Inspection, No Pedal Edema Neurologic/Psychiatric: Alert, Normal Mood/Affect Results/Procedures Lab Laboratory Tests 04/19/22 06:21 Patient resulted labs reviewed. Imaging: Reviewed Imaging Report Assessment/Plan Assessment and Plan Assess & Plan/Chief Complaint Gangrene of bilateral feet s/p BKA, bilateral PAD Acute DVT Tobacco abuse Medical non-compliance Surgery following s/p bilateral BKA 04/17 Ultrasound consistent with extensive DVTs Continue Eliquis Continue [employer] rep following Unable to get into wound care until next Friday Needs daily dressing changes Will remain hospitalized for daily wound care Diagnosis/Problems Diagnosis/Problems (1) Gangrene due to peripheral vascular disease Status: Acute (2) Gangrene of both feet Status: Acute (3) Peripheral vascular disease Status: Acute (4) History of DVT (deep vein thrombosis) Status: Chronic (5) Tobacco abuse Status: Chronic (6) Medical non-compliance Status: Chronic (7) Acute deep vein thrombosis (DVT) of both lower extremities Status: Acute Qualifiers: Affected thrombotic vein of extremity: femoral Qualified Codes: I82.413 - Acute embolism and thrombosis of femoral vein, bilateral RAMIN FLORES MD Apr 19, 2022 16:19
--- NOTE | 2022-04-19 17:54 | Progress Note - Surgery ---
Subjective Date Seen by a Provider: Apr 19, 2022 Time Seen by a Provider: 17:52 Subjective/Events-last exam Patient doing well. With dressings just changed. Patient wanting to go to rehab for continued wound care as well and get stronger. Patient no other complaints. Denies nausea vomiting fever sweats chills shortness of breath or chest pain. Focused Exam Lactate Level 04/16/22 23:03: Lactic Acid Level 1.84 Objective Exam Vital Signs Date Time Temp Pulse Resp B/P (MAP) Pulse Ox O2 Delivery O2 Flow Rate FiO2 04/19/22 16:07 36.8 95 20 113/57 (75) 96 Room Air 04/19/22 12:51 94 04/19/22 11:58 37.0 95 20 116/58 (77) 94 Room Air 04/19/22 08:00 96 Room Air 0.00 04/19/22 07:47 38.0 79 16 107/66 (80) 96 Room Air 04/19/22 07:00 84 04/19/22 04:00 37.6 94 18 105/56 (72) 99 Room Air 04/19/22 01:00 83 04/19/22 00:00 37.3 96 18 107/57 (74) 98 Room Air 04/18/22 20:00 97 Room Air 04/18/22 19:42 37.5 95 16 105/58 (74) 98 Room Air 04/18/22 19:00 91 04/18/22 18:42 Room Air 0.00 I & O 04/19/22 07:00 Intake Total 3885 ml Output Total 2800 ml Balance 1085 ml Capillary Refill : Less Than 3 Seconds General Appearance: No Apparent Distress, Chronically ill HEENT: PERRL/EOMI, Pharynx Normal Neck: Normal Inspection, Supple Respiratory: Lungs Clear, No Respiratory Distress Cardiovascular: Regular Rate, Rhythm, No Murmur Gastrointestinal: non tender, soft Extremity: Normal Inspection (BKA bilateral dressings intact), No Pedal Edema Neurologic/Psychiatric: Alert, Normal Mood/Affect Skin: Normal Color, Warm/Dry Lymphatic: No Adenopathy Results Lab Laboratory Tests 04/19/22 06:21: White Blood Count 5.6, Red Blood Count 2.82L, Hemoglobin 11.2L, Hematocrit 33L, Mean Corpuscular Volume 117H, Mean Corpuscular Hemoglobin 40H, Mean Corpuscular Hemoglobin Concent 34, Red Cell Distribution Width 13.0, Platelet Count 162, Mean Platelet Volume 9.7, Immature Granulocyte % (Auto) 1, Neutrophils (%) (Auto) 69, Lymphocytes (%) (Auto) 18, Monocytes (%) (Auto) 9, Eosinophils (%) (Auto) 3, Basophils (%) (Auto) 0, Neutrophils # (Auto) 3.9, Lymphocytes # (Auto) 1.0, Monocytes # (Auto) 0.5, Eosinophils # (Auto) 0.2, Basophils # (Auto) 0.0, Immature Granulocyte # (Auto) 0.0, Sodium Level 138, Potassium Level 3.3L, Chloride Level 105, Carbon Dioxide Level 24, Anion Gap 9, Blood Urea Nitrogen 5L , Creatinine 0.53L, Estimat Glomerular Filtration Rate 129, BUN/Creatinine Ratio 9, Glucose Level 105, Calcium Level 7.3L, Corrected Calcium 8.8, Magnesium Level 1.9, Total Bilirubin 0.3, Aspartate Amino Transf (AST/SGOT) 12, Alanine Aminotransferase (ALT/SGPT) 13, Alkaline Phosphatase 79, Total Protein 4.4L, Albumin 2.1L Microbiology 04/17/22 MRSA Screen - Final, Complete MRSA not isolated 04/16/22 Gram Stain - Final, Complete 04/16/22 Wound Culture - Final, Complete Mixed Bacterial Aleta Gram Negative Richard 04/16/22 Blood Culture - Preliminary, Resulted No growth 04/16/22 Urine Culture - Final, Complete Mixed Bacterial Aleta Assessment/Plan Assessment/Plan Assessment/Plan b/l lower extremity gangrene open wound feet b/l left superficial femoral and popliteal artery occlusion with reconstitution into calf diffuse osseous demineralization of b/l feet lower extremity pain b/l noncompliance b/l venous stasis Status post right below-knee amputation with open wounds. Patient doing well. Wound care Eventually will need vascular consult to try to establish best blood flow to the area. Revising at this time would not guarantee healing. Patient informed that he will need to be very compliant with wound care and for future hopes of having the areas revised without losing more of his lower extremities and if not worsening becoming septic and dying. Patient is in agreement with complying at this time. He understands that he needs to take care of himself. Continue antibiotics. Inpatient rehab evaluation. . CHASE GONZALEZ DO Apr 19, 2022 17:54
[2022-04-19 20:00] VITALS: BP 105/59
[2022-04-20 01:13] VITALS: BP 110/60
[2022-04-20] MEDS: HYDROmorphone 2 MG/ML VIAL (DILAUDID) IV PRN ×3 (03:00→08:41)
[2022-04-20] MEDS: LACTATED RINGERS 1,000 ML IV SCH (03:00)
[2022-04-20 04:28] VITALS: BP 114/72
[2022-04-20] MEDS: PIPERACILLIN SODIUM/TAZOBACTAM 4.5 GM in NS (IVPB) 100 ML IV SCH (06:28)
[2022-04-20] MEDS: MAGNESIUM 1 GM/100 ML IVPB 100 ML IV SCH (07:28)
[2022-04-20] MEDS: POTASSIUM CL 10MEQ/50ML IVPB 50 ML IV SCH (07:30)
[2022-04-20] MEDS ORDERED: KCL 20 MEQ TAB (K-DUR) PO ONE ×2 (07:30→09:00)
[2022-04-20] MEDS: KCL 20 MEQ TAB (K-DUR) PO SCH (07:30)
[2022-04-20 07:49] LABS: BASOPHILS % (AUTO) 1 % (0-10); EOSINOPHILS # (AUTO) 0.3 10^3/uL (0.0-0.3); EOSINOPHILS % (AUTO) 5 % (0-10); HEMATOCRIT 37 % (40-54); HEMOGLOBIN 12.3 g/dL (13.3-17.7); LYMPHOCYTES # (AUTO) 1.3 10^3/uL (1.0-4.0); LYMPHOCYTES % (AUTO) 24 % (12-44); MEAN CORPUSCULAR HEMOGLOBIN 39 pg (25-34); MEAN CORPUSCULAR HGB CONC 33 g/dL (32-36); MEAN CORPUSCULAR VOLUME 118 fL (80-99); MEAN PLATELET VOLUME 9.7 fL (9.0-12.2); MONOCYTES # (AUTO) 0.4 10^3/uL (0.0-1.0); MONOCYTES % (AUTO) 8 % (0-12); NEUTROPHILS # (AUTO) 3.2 10^3/uL (1.8-7.8); NEUTROPHILS % (AUTO) 61 % (42-75); PLATELET COUNT 206 10^3/uL (130-400); WHITE BLOOD COUNT 5.3 10^3/uL (4.3-11.0)
[2022-04-20 08:00] VITALS: BP 111/60
[2022-04-20 08:15] LABS: ALBUMIN 2.2 GM/DL (3.2-4.5); BILIRUBIN,TOTAL 0.3 MG/DL (0.1-1.0); CALCIUM 7.8 MG/DL (8.5-10.1); CREATININE SERUM 0.53 MG/DL (0.60-1.30); MAGNESIUM 1.7 MG/DL (1.6-2.4); POTASSIUM 3.7 MMOL/L (3.6-5.0); TOTAL PROTEIN 4.8 GM/DL (6.4-8.2)
[2022-04-20] MEDS: APIXABAN 5 MG (ELIQUIS) TABLET PO SCH (08:40)
--- NOTE | 2022-04-20 19:30 | Discharge Summary ---
Discharge Summary Hospital Course Problems/Dx: (1) Gangrene due to peripheral vascular disease Status: Acute (2) Gangrene of both feet Status: Acute (3) Peripheral vascular disease Status: Acute (4) History of DVT (deep vein thrombosis) Status: Chronic (5) Tobacco abuse Status: Chronic (6) Medical non-compliance Status: Chronic (7) Acute deep vein thrombosis (DVT) of both lower extremities Status: Acute Qualifiers: Qualified Codes: I82.413 - Acute embolism and thrombosis of femoral vein, bilateral Hospital Course Date of Admission: Apr 16, 2022 at 23:45 Admission Diagnosis : Gangrene of both feet due to peripheral vascular disease Family Physician/Provider: GailLocal Physician Date of Discharge: 04/20/22 Discharge Diagnosis: Gangrene of both feet due to peripheral vascular disease, Acute bilateral femoral DVTs Hospital Course: Alex Ma is a 41 year old male with H PAD, bilateral foot gangrene s/p partial foot amputations, who presented with gangrene of the bilateral feet. Since his previous bilateral foot amputations in July 2021, he has not been compliant with his medicaitons or wound care. He has a history of PAD which was likely not amenable to intervention, but he refused transfer and evaluation by a vascular surgeon on previous admission. Surgery was consulted and assisted with his care. He required bilateral below the knee amputations. He was treated with IV antibiotics and transitioned to oral antibiotics. He again was found to have extensive bilateral DVTs and was started on Eliquis. He was discharged to the inpatient rehab unit for ongoing therapy and wound care needs. Labs and Pending Lab Test: Laboratory Tests 04/20/22 07:42: White Blood Count 5.3, Red Blood Count 3.13L, Hemoglobin 12.3L, Hematocrit 37L, Mean Corpuscular Volume 118H, Mean Corpuscular Hemoglobin 39H, Mean Corpuscular Hemoglobin Concent 33, Red Cell Distribution Width 12.9, Platelet Count 206, Mean Platelet Volume 9.7, Immature Granulocyte % (Auto) 0, Neutrophils (%) (Auto) 61, Lymphocytes (%) (Auto) 24, Monocytes (%) (Auto) 8, Eosinophils (%) (Auto) 5, Basophils (%) (Auto) 1, Neutrophils # (Auto) 3.2, Lymphocytes # (Auto) 1.3, Monocytes # (Auto) 0.4, Eosinophils # (Auto) 0.3, Basophils # (Auto) 0.0, Immature Granulocyte # (Auto) 0.0, Sodium Level 139, Potassium Level 3.7, Chloride Level 103, Carbon Dioxide Level 26, Anion Gap 10, Blood Urea Nitrogen 5L, Creatinine 0.53L, Estimat Glomerular Filtration Rate 129, BUN/Creatinine Ratio 9, Glucose Level 96, Calcium Level 7.8L, Corrected Calcium 9.2, Magnesium Level 1.7, Total Bilirubin 0.3, Aspartate Amino Transf (AST/SGOT) 16, Alanine Aminotransferase (ALT/SGPT) 12, Alkaline Phosphatase 80, Total Protein 4.8L, Albumin 2.2L Microbiology 04/17/22 MRSA Screen - Final, Complete MRSA not isolated 04/16/22 Gram Stain - Final, Complete 04/16/22 Wound Culture - Final, Complete Mixed Bacterial Aleta Gram Negative Richard 04/16/22 Blood Culture - Preliminary, Resulted No growth 04/16/22 Urine Culture - Final, Complete Mixed Bacterial Aleta Home Meds Active Eliquis (Apixaban) 5 Mg Tablet 5 Mg PO BID 30 Days TAKE 2 TABLETS BID X 7 DAYS, THEN 1 TABLET BID Amox Tr-K Clv 875-125 mg Tab (Amoxicillin/Potassium Clav) 875 Mg-125 Mg Tablet 1 Each PO BID 5 Days Reported Ibuprofen 200 Mg Capsule 400 Mg PO Q8H PRN Assessment/Pt Instructions See instructions Discharge Planning: >30 minutes discharge planning Discharge Instructions Discharge Diet: Low Sodium Diet Consultations Surgery Discharge Physical Examination Vital Signs Vital Signs Date Time Temp Pulse Resp B/P (MAP) Pulse Ox O2 Delivery O2 Flow Rate FiO2 04/20/22 08:00 96 Room Air 0.00 04/20/22 08:00 37.0 85 16 111/60 (77) General Appearance: No Apparent Distress, Chronically ill Respiratory: Lungs Clear, No Respiratory Distress Cardiovascular: Regular Rate, Rhythm, No Murmur Gastrointestinal: Normal Bowel Sounds, Soft Extremity: Other (bilateral BKA with bandages in place) Allergies: Coded Allergies: No Known Drug Allergies (Unverified , 08/04/21) He denies allergies to drugs and food, says he has seasonal allergies Copy Copies To 1: [facility] [place] Discharge Summary Date of Admission Apr 16, 2022 at 23:45 Date of Discharge Apr 20, 2022 at 09:45 Discharge Date: Apr 20, 2022 Discharge Time: 09:45 Admission Diagnosis Gangrene of bilateral feet due to peripheral vascular disease Discharge Diagnosis Gangrene of bilateral feet s/p BKA, bilateral PAD Acute DVT (1) Gangrene due to peripheral vascular disease Status: Acute (2) Gangrene of both feet Status: Acute (3) Peripheral vascular disease Status: Acute (4) History of DVT (deep vein thrombosis) Status: Chronic (5) Tobacco abuse Status: Chronic (6) Medical non-compliance Status: Chronic (7) Acute deep vein thrombosis (DVT) of both lower extremities Status: Acute Qualifiers: Qualified Codes: I82.413 - Acute embolism and thrombosis of femoral vein, bilateral RAMIN FLORES MD Apr 20, 2022 19:28
== END 2022-04-20 09:45 | DRG 240 ==
LOC: EDUNIT# 22:58 → ER 23:01 → EDLOC 23:45 → 4TH 23:45
PROVIDERS: ADMIT Internal Medicine; ATTEND Internal Medicine
PROC: 0Y6H0Z1 Detachment at Right Lower Leg, High, Open Approach (ICD-10-PCS; 2022-04-17)
PROC: 0Y6J0Z1 Detachment at Left Lower Leg, High, Open Approach (ICD-10-PCS; principal; 2022-04-17 13:50)
DX: I70.268 Atherosclerosis of native arteries of extremities with gangrene, other extremity (principal); L03.116 Cellulitis of left lower limb; M86.9 Osteomyelitis, unspecified; L03.115 Cellulitis of right lower limb; N39.0 Urinary tract infection, site not specified; E46 Unspecified protein-calorie malnutrition; I82.413 Acute embolism and thrombosis of femoral vein, bilateral; L03.032 Cellulitis of left toe; L03.031 Cellulitis of right toe; Z91.19 Patient's noncompliance with other medical treatment and regimen; F17.210 Nicotine dependence, cigarettes, uncomplicated; Z20.822 Contact with and (suspected) exposure to COVID-19; Z91.14 Patient's other noncompliance with medication regimen; I89.0 Lymphedema, not elsewhere classified; I87.8 Other specified disorders of veins; Z68.22 Body mass index [BMI] 22.0-22.9, adult; Z89.422 Acquired absence of other left toe(s); Z89.421 Acquired absence of other right toe(s)
CPT/HCPCS: 36415; 71045; 75635; 80053; 80202; 80306; 80320; 81000; 82550; 82553; 83605; 83735; 83874; 84145; 85025; 85610; 85652; 85730; 86141; 87040; 87070; 87081; 87088; 87205; 87636; 93041; 93970

== ENCOUNTER 2022-04-20 09:45 | Inpatient (IN) | payer OTHER ==
[~2022-04-20] VITALS: Ht 148 cm; Wt 74.3 kg
[~2022-04-20 09:45] MED LIST changes: +ACETAMINOPHEN 325 MG TABLET PO PRN; +ALPRAZolam 0.25 MG (XANAX) TAB PO PRN; +AMOX1TAB12 PO; +APIX5TAB PO; +BISACODYL 10 MG SUPP (DULCOLAX) PR PRN; +CALCIUM CARBONATE 500 MG (TUMS) TAB.CHEW PO PRN; +DOCUSATE SODIUM 100 MG (COLACE) CAP PO PRN; +FLEET ENEMA ADULT 1 EA BTL PR PRN; +LACTULOSE SYRUP 10GM/15ML (ENULOSE) 30ML UDC PO PRN; +LOPERAMIDE 2 MG (IMODIUM) TABLET PO PRN; +MELATONIN 3 MG TABLET PO PRN; +diphenhydrAMINE 25 MG TAB (BENADRYL) PO PRN; +guaiFENesin/CODEINE (ROBITUSSIN AC) 10ML UDC PO PRN
--- NOTE | 2022-04-20 10:09 | Physical Therapy Evaluation ---
PT Evaluation-General Medical Diagnosis Admission Date April 20, 2022 Medical Diagnosis: s/p B BKA Onset Date: Apr 17, 2022 Therapy Diagnosis Therapy Diagnosis: s/p B BKA Precautions Precautions/Isolations: Fall Prevention, Standard Precautions Weight Bear Status Non Weight Bearing Non Weight Bearing Referral Physician: Dr. Cordova Reason for Referral: Evaluation/Treatment Medical History Pertinent Medical History: COPD, PVD Current History Pt admitted from ED secondary to gangrene of B feet. s/p B BKA on 04/17/22. Reviewed History: Yes Social History Home: mobile home Current Living Status: Significant Other Entry Into Home: Stairs Without Railing pt reports that his family carried him up the steps into mobile home, and he stayed there until he came to the hospital. Pt moved into mobile home last week per report. Prior Prior Level of Function SCALE: Activities may be completed with or without assistive devices. 5-Tscnwagaxf-vdkiqps completes the activity by him/herself with no assistance from a helper. 5-Set-up or Clean-up Assistance-helper sets up or cleans up; patient completes activity. [place] assists only prior to or following the activity. 4-Supervision or Touching Assistance-helper provides verbal cues and/or touching/steadying and/or contact guard assistance as patient completes activity. Assistance may be provided throughout the activity or intermittently. 3-Partial/Moderate Assistance-helper does LESS THAN HALF the effort. [place] lifts, holds or supports trunk or limbs, but provides less than half the effort. 2-Substantial/Maximal Assistance-helper does MORE THAN HALF the effort. [place] lifts or holds trunk or limbs and provides more than half the effort. 2-Okesldmmo-cagvoh does ALL the effort. Patient does none of the effort to complete the activity. Or, the assistance of 2 or more helpers is required for the patient to complete the activity. If activity was not attempted, code reason: 7-Patient Refused. 9-Not Applicable-not attempted and the patient did not perform the activity before the current illness, exacerbation or injury. 10-Not Attempted due to Environmental Limitations-(lack of equipment, weather restraints, etc.). 88-Not Attempted due to Medical Conditions or Safety Concerns. Bed Mobility: 6 Transfers (B,C,W/C): 1 Wheelchair Mobility: 6 Prior Devices Use: Manual wheelchair Pt had family members carry him up the steps into the mobile home. He reports that he has not walked in "awhile, I couldn't even begin to tell you the last time I walked." He states he has a manual [facility] at home which he uses for mobility. PT Evaluation-Current Subjective Pt asleep in bed upon arrival to room, agreeable to PT evaluation and transfer to IRF floor. He rates pain at 9/10 currently BLE. Pt/Family Goals Return home Objective Patient Orientation: Person, Place, Situation Attachments: IV ROM/Strength ROM Lower Extremities WFL Strength Lower Extremities Hip Flexion: 4/5 Hip Extension: 4/5 Knee Flexion/Extension: grossly 3/5 - unable to provide resistance due to pain levels Integumentary/Posture Integumentary refer to nursing notes Bowel Incontinence: No Bladder Incontinence: No Posture Pt prefers to sit with pillow under B knees, pt educated on not to place pillow under knees to to keep them as straight as possible to prevent contracture, Neuromuscular (Tone, Coordination, Reflexes) grossly intact Sensory Vision: Functional Hearing: Functional Hand Dominance: Right Sensation Right Lower Extremit: Intact Sensation Left Lower Extremity: Intact Transfers Roll Left & Right (QC): 6 Sit to Lying (QC): 6 Lying to Sitting/Side of Bed(Q: 4 Sit to Stand (QC): 88 Chair/Uxq-wb-Telny Xfer(QC): 2 Toilet Transfer (QC): 88 Car Transfer (QC): 88 Chair transfer performed with slideboard. Pt required assistance with placement of slideboard and cueing for sequencing. Gait Walk 10 feet (QC): 9 Walk 50 ft with 2 Turns(QC): 9 Walk 150 ft (QC): 9 Walking 10ft/uneven surface-QC: 9 Comments/Gait Description Per pt report he had not been walking prior to admission, and now not applicable due to B BKA. Wheelchair Training Does the Pt Use a Wheelchair?: Yes Wheel 50 ft with 2 turns (QC): 6 Wheel 150 ft (QC): 6 Stairs 1 Step (curb) (QC): 9 4 Steps (QC): 9 12 Steps (QC): 9 Balance Sitting Static: Fair Sitting Dynamic: Fair Picking up an Object (QC): 9 Assessment/Needs Pt has poor history of medical compliance with would care, and is now s/p B BKA. He would benefit from skilled PT to ensure safety with transfers and wheelchair mobility in order to return home safely and decrease risk of falling. Rehab Potential: Fair PT Short Term Goals Short Term Goals Time Frame: May 04, 2022 Roll Left & Right: 6 Sit to lyin Lying to sitting on side of be: 6 Sit to stand: 6 Chair/mkz-hn-khqga transfer: 4 Toilet transfer: 4 Car transfer: 4 Wheel 50ft w/2 turns: 6 Wheel 150 feet: 6 Type: Manual PT Strategic Advisor Goals Strategic Advisor Goals PT Strategic Advisor Goals Time Frame: May 11, 2022 Roll Left & Right (QC): 6 Sit to Lying (QC): 6 Lying-Sitting on Side/Bed(QC): 6 Sit to Stand (QC): 9 Chair/Kyd-ak-Gkxru Xfer(QC): 6 Toilet Transfer (QC): 6 Car Transfer (QC): 6 Does the Patient Walk: No and Walking Goal NOT indicated Walk 10 feet (QC): 9 Walk 50ft with 2 Turns (QC): 9 Walk 150 ft (QC): 9 Walking 10ft on Uneven Surface: 9 1 Step (curb) (QC): 9 4 Steps (QC): 9 12 Steps (QC): 9 Picking up an Object (QC): 9 Does the Pt use WC or Scooter?: Yes Wheel 50 feet with 2 turns (QC: 6 Type: Manual Wheel 150 feet: 6 Type: Manual PT Plan Problem List Problem List: Activity Tolerance, Functional Strength, Safety, Balance, Transfer, Bed Mobility, ROM Treatment/Plan Treatment Plan: Continue Plan of Care Treatment Plan: Bed Mobility, Education, Functional Activity [place], Functional Strength, Group Therapy, Safety, Therapeutic Exercise, Transfers Treatment Duration: May 11, 2022 Frequency: At least 5 of 7 days/Wk (IRF) Estimated Hrs Per Day: 1.5 hours per day Patient and/or Family Agrees t: Yes Time/GCodes Time In: 913 Time Out: 955 Total Billed Treatment Time: 42 Total Billed Treatment 1 visit [facility] (40') WHITNEY IVORY PT Apr 20, 2022 10:09
--- OUTSIDE RECORDS SUMMARY | 2022-04-20 10:27 | XMS REPORT | Clinical Summary ---
Author Author [facility] Address Unknown Phone Unavailable Care Team Providers Care Donor Services Specialist Name Role Phone Provider, Notinsystem MODEL USER [...] Health Maintenance Due Date Last Done Comments HIV Screening 1980 COVID-19 Vaccine (#1) 1980 Varicella Vaccines (1 of 1981 2 - 2-dose childhood series) Hepatitis C Screening 1998 DTaP,Tdap,and Td Vaccines 1999 (1 - Tdap) MMR Vaccines-Adult 1999 Influenza Vaccine (Season 06/27/2022 Ended) HIB Vaccines Aged Out No longer eligible based on patient's age to complete this topic IPV Vaccines Aged Out No longer eligible based on patient's age to complete this topic Meningococcal Vaccine Aged Out No longer eligib le based on patient's age to complete this topic Pneumo-Vaccine: At Risk Aged Out No longer elig ible based on patient's age to 6-64 Yrs complete this topic Rotavirus Vaccines Aged Out No longer eligible based on patient's age to complete this topic Results Not on filefrom Last 3 Months Insurance Type Payer Benefit Subscriber ID Effective Phone Address Plan / Dates Group MEDICAID P[place]ENTIAL MEDICAID [id number] 2019- [address] [place] [id number] Advance Directives For more information, please contact: [phone] 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
[2022-04-20 10:49] VITALS: BP 105/55
--- NOTE | 2022-04-20 11:13 | PM&R Post Admission Assessment ---
PM&R Date of Visit: Apr 20, 2022 Time of Visit: 12:00 History of Present Illness Chief complaint: Debility following bilateral lower extremity amputations History of present illness: This is a 41-year-old male with past medical history of severe peripheral artery disease who presents following a bilateral lower extremity amputation by Dr. Fernandez. Currently still on antibiotics and IV pain medication. He cannot really swallow pills well which has been a chronic lifelong pain so I attempted to start an extended release pain medication but cannot crush that so we will maintain the oxycodone and IV Dilaudid. His bowels are moving well. He does not have any teeth so ordered a dysphagia 2 diet. Past Tbgulcl-Pjulsm-Pjobnw Hx Past Med/Social Hx: Reviewed Nursing Past Med/Soc Hx, Reviewed and Corrections made Patient Social History Marrital Status: single Employed/Student: unemployed Smoking Status: Current Everyday Smoker Seasonal Allergies Seasonal Allergies: Yes Past Medical History Surgeries: Abdominal, Orthopedic Cardiac: Deep Vein Thrombosis, Peripheral Vascular Musculoskeletal: Amputee Skin/Integumentary: Psoriasis History of Blood Disorders: Yes (DVT'S) Family History No Pertinent Family Hx, Other Conditions/Hx EXTREME NON-COMPLIANCE IN ALL ASPECTS OF CARE SOCIAL HISTORY: -SMOKES 2-3 PPD -ETOH--DRINKS 1.75 LITERS OF HARD LIQUOR DAILY--STATES LATELY HE HAS ONLY BEEN DRINKING "3 OR 4 GLASSES" OF HARD LIQUOR/DAY. 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 -ALL TEETH REMOVED -HERNIA REPAIR Prior Level of Function Bed Mobility: 6 Transfers: 1 Wheelchair Mobility: 6 Prior Devices Use: Manual wheelchair Current Level of Fuctioning Roll Left to Right: 6 Sit to Lyin Lying to Sitting/Side of Bed: 4 Sit to Stand: 88 Chair/Jac-kl-Vfwgu Xfer: 2 Car Transfer: 88 Walk 10 feet: 9 Walk 50 ft with 2 Turns: 9 Walk 150 ft: 9 Walking 10ft on uneven surface: 9 Does the Pt Use a Wheelchair: Yes Wheel 50 ft with 2 turns: 6 Wheel 150 ft: 6 1 Step (curb): 9 4 Steps: 9 12 Steps: 9 Picking up an Object: 9 PM&R Allergy/Meds/Data Review Allergies Coded Allergies: No Known Drug Allergies (Unverified , 08/04/21) He denies allergies to drugs and food, says he has seasonal allergies Home Medications Scheduled Amoxicillin/Potassium Clav (Amox Tr-K Clv 875-125 mg Tab), 1 EACH PO BID Apixaban (Eliquis), 5 MG PO BID Scheduled PRN Ibuprofen (Ibuprofen), 400 MG PO Q8H PRN for PAIN-MILD (1-4), (Reported) Discontinued Medications Acetaminophen (Tylenol Extra Strength), 1,000 MG PO Q8H PRN for PAIN-MILD (1-4), (Reported) Discontinued Reason: No Longer Taking Levofloxacin (Levofloxacin), 750 MG PO DAILY Discontinued Reason: No Longer Taking Rivaroxaban (Xarelto Tablet), 15 MG PO BID@0700,1900 Discontinued Reason: No Longer Taking Rivaroxaban (Xarelto), 20 MG PO DAILY Discontinued Reason: No Longer Taking Tramadol HCl (Ultram), 50 MG PO Q4H Discontinued Reason: No Longer Taking Current Medications Current Medications Reviewed Review of Systems Constitutional: see HPI, malaise, weakness EENTM: no symptoms reported Respiratory: no symptoms reported Cardiovascular: no symptoms reported Gastrointestinal: no symptoms reported Genitourinary: no symptoms reported Musculoskeletal: back pain, joint pain Skin: no symptoms reported Psychiatric/Neurological: No Symptoms Reported All Other Systems Reviewed Negative Unless Noted: Yes Physical Exam Physical Exam Vital Signs Vital Signs - First Documented 04/20/22 10:49 Temp 37.8 Pulse 87 Resp 18 B/P (MAP) 105/55 (72) Pulse Ox 99 O2 Delivery Room Air Capillary Refill : Height, Weight, BMI Height: '" Weight: lbs. oz. kg; 22.84 BMI Method: General Appearance: No Apparent Distress, WD/WN, Chronically ill, Thin Eyes: Bilateral Eye Normal Inspection, Bilateral Eye PERRL HEENT: PERRL/EOMI, Normal ENT Inspection, Pharynx Normal Neck: Full Range of Motion, Normal Inspection, Non Tender, Supple, Carotid Bruit Respiratory: Chest Non Tender, Lungs Clear, Normal Breath Sounds, No Accessory Muscle Use, No Respiratory Distress Cardiovascular: Regular Rate, Rhythm, No Edema, No Gallop, No JVD, No Murmur, Normal Peripheral Pulses Gastrointestinal: Normal Bowel Sounds, No Organomegaly, No Pulsatile Mass, Non Tender, Soft Back: Normal Inspection, No CVA Tenderness, No Vertebral Tenderness Extremity: Normal Capillary Refill, Normal Inspection, Normal Range of Motion, Non Tender, No Calf Tenderness, Other (Bilateral lower amputations) Neurologic/Psychiatric: Alert, Oriented x3, No Motor/Sensory Deficits, Normal Mood/Affect, roller printer II-XII Norm as Tested, Abnormal Gait (Can ambulate), Motor Weakness (Lower extremities) Skin: Normal Color, Warm/Dry Lymphatic: No Adenopathy PM&R Medical Assessment & Plan REHAB/MEDICAL ASSESSMENT AND PLAN: REHAB IMPAIRMENT GROUP: Bilateral lower extremity BKA ETIOLOGIC DIAGNOSIS: Bilateral lower extremity BKA The comorbidities that impact the patients function and/or functional outcome by: Severe PAD REHAB PLAN: The patient is being admitted to our comprehensive inpatient rehabilitation facility and can tolerate the intensity of service consisting of at least: 180 minutes of therapy a day, 5 out of 7 days a week Rehab treatment will consist of: PT and OT will focus on regaining function with use of assistive devices in order to return to independent living The patient/family has a good understanding of our discharge process and will benefit from an interdisciplinary inpatient rehabilitation program. The patient has potential to make improvement and is in need of at least two of the followin g multidisciplinary therapies including but not limited to physical, occupational, speech, and prosthetics and orthotics. Additionally the patient will need services from respiratory, nutritional services, wound care, psychology, etc. (Customize this to each patient). Given the patients complex condition and risk of further medical complications, rehabilitation services cannot be safely or effectively provided at a lower level of care such as a care home facility. BARRIERS TO DISCHARGE: Bilateral amputations ESTIMATED LOS: 10 days DISPOSITION: Home RELEVANT CHANGES SINCE PREADMISSION SCREENING: I have compared the patients medical and functional status at the time of the preadmission screening and there are: no changes PROGNOSIS: Fair REHABILITATION GOALS: 1. PT and OT will focus on regaining function with use of assistive devices in order to return to independent living All the above goals were reviewed with the patient and he/she is in agreement. By signing this document, I acknowledge that I have personally performed a full physical examination on this patient within 24 hours of admission to this inpatient rehabilitation facility and have determined the patient to be able to tolerate the above course of treatment at an intensive level for a reasonable period of time. I will be completing a detailed individualized Plan of Care for this patient by day #4 of the patients stay based upon the Preadmission Screen, the Post-Admission Evaluation, and the therapy evaluations. Admission Dx/Comorbidities: (1) S/P bilateral below knee amputation ICD Codes: Z89.512 - Acquired absence of left leg below knee; Z89.511 - Acquired absence of right leg below knee ATIF LIND DO Apr 20, 2022 11:13
[2022-04-20] MEDS ORDERED: ONDANSETRON 4 MG/2 ML (SDV) Z0FRAN IV PRN (11:15)
[2022-04-20] MEDS ORDERED: PIPERACILLIN SODIUM/TAZOBACTAM 4.5 GM in NS (IVPB) 100 ML IV SCH (11:15)
[2022-04-20] MEDS: HYDROmorphone 2 MG/ML VIAL (DILAUDID) IV PRN ×4 (11:39→22:08)
[2022-04-20] MEDS: SENNA W/DOCUSATE (SENOKOT S) TABLET PO SCH ×2 (11:53→21:55)
[2022-04-20] MEDS: DOCUSATE SODIUM 100 MG (COLACE) CAP PO SCH ×2 (11:53→21:55)
[2022-04-20] MEDS: polyethylene glycoL POWDER 17 GM (MIRALAX) PACK PO SCH ×2 (11:53→21:55)
--- NOTE | 2022-04-20 13:12 | Progress Note - Surgery ---
Subjective Time Seen by a Provider: 12:29 Subjective/Events-last exam Pt seen and examined; sitting up in bed, eating and in good spirits. He states pain is controlled. Review of Systems Pulmonary: No Dyspnea, No Cough Cardiovascular: No: Chest Pain, Palpitations Gastrointestinal: No: Abdominal Pain Objective Exam Vital Signs Date Time Temp Pulse Resp B/P (MAP) Pulse Ox O2 Delivery O2 Flow Rate FiO2 04/20/22 10:49 37.8 87 18 105/55 (72) 99 Room Air Capillary Refill : General Appearance: No Apparent Distress Respiratory: Lungs Clear, Normal Breath Sounds, No Accessory Muscle Use, No Respiratory Distress Cardiovascular: Regular Rate, Rhythm, No Murmur Gastrointestinal: soft Extremity: Other (B/L BKA/Guillotine no erythema or swelling above bandages) Assessment/Plan Assessment/Plan Assessment/Plan S/P B/L BKA Start PT/OT and wound care. Will follow as needed. ALLEY LESTER DO Apr 20, 2022 13:12
[2022-04-20] MEDS ORDERED: morphine ER 15 MG (MS CONTIN) TAB PO SCH (14:00)
[2022-04-20] MEDS: PIPERACILLIN SODIUM/TAZOBACTAM 4.5 GM in NS (IVPB) 100 ML IV SCH ×2 (14:46→21:59)
[2022-04-20 19:43] VITALS: BP 107/59
[2022-04-20] MEDS ORDERED: APIXABAN 5 MG (ELIQUIS) TABLET PO SCH (21:00)
[2022-04-20] MEDS: APIXABAN 5 MG (ELIQUIS) TABLET PO SCH (21:58)
[2022-04-21] MEDS: HYDROmorphone 2 MG/ML VIAL (DILAUDID) IV PRN ×3 (01:38→23:17)
[2022-04-21] MEDS: PIPERACILLIN SODIUM/TAZOBACTAM 4.5 GM in NS (IVPB) 100 ML IV SCH ×3 (05:49→21:06)
[2022-04-21 06:30] LABS: BASOPHILS % (AUTO) 1 % (0-10); EOSINOPHILS # (AUTO) 0.4 10^3/uL (0.0-0.3); EOSINOPHILS % (AUTO) 7 % (0-10); HEMATOCRIT 34 % (40-54); HEMOGLOBIN 11.3 g/dL (13.3-17.7); LYMPHOCYTES # (AUTO) 1.5 10^3/uL (1.0-4.0); LYMPHOCYTES % (AUTO) 26 % (12-44); MEAN CORPUSCULAR HEMOGLOBIN 39 pg (25-34); MEAN CORPUSCULAR HGB CONC 34 g/dL (32-36); MEAN CORPUSCULAR VOLUME 116 fL (80-99); MEAN PLATELET VOLUME 9.1 fL (9.0-12.2); MONOCYTES # (AUTO) 0.6 10^3/uL (0.0-1.0); MONOCYTES % (AUTO) 10 % (0-12); NEUTROPHILS # (AUTO) 3.2 10^3/uL (1.8-7.8); NEUTROPHILS % (AUTO) 56 % (42-75); PLATELET COUNT 250 10^3/uL (130-400); WHITE BLOOD COUNT 5.6 10^3/uL (4.3-11.0)
[2022-04-21 06:54] LABS: ALBUMIN 2.2 GM/DL (3.2-4.5); POTASSIUM 4.5 MMOL/L (3.6-5.0)
[2022-04-21 06:56] LABS: CALCIUM 7.9 MG/DL (8.5-10.1)
[2022-04-21 06:57] LABS: TOTAL PROTEIN 4.8 GM/DL (6.4-8.2)
[2022-04-21 06:59] LABS: BILIRUBIN,TOTAL 0.2 MG/DL (0.1-1.0)
[2022-04-21 07:00] LABS: CREATININE SERUM 0.55 MG/DL (0.60-1.30)
--- NOTE | 2022-04-21 07:37 | PM&R Progress Note ---
Subjective HPI/CC On Admission Date Seen by Provider: Apr 21, 2022 Time Seen by Provider: 12:00 Subjective/Events-last exam 04/21/2022: Patient doing pretty well Bowels moved yesterday Decreasing Dilaudid use Nystatin powder helpful Review of Systems General: Fatigue, Malaise Musculoskeletal: leg pain Objective Exam Vital Signs Vital Signs Date Time Temp Pulse Resp B/P (MAP) Pulse Ox O2 Delivery O2 Flow Rate FiO2 04/21/22 21:32 Room Air 04/21/22 20:24 37.3 96 20 113/61 (78) 98 Capillary Refill : General Appearance: No Apparent Distress, WD/WN, Chronically ill, Thin HEENT: PERRL/EOMI, Normal ENT Inspection, Pharynx Normal Neck: Full Range of Motion, Normal Inspection, Non Tender, Supple, Carotid Bruit Respiratory: Chest Non Tender, Lungs Clear, Normal Breath Sounds, No Accessory Muscle Use, No Respiratory Distress Cardiovascular: Regular Rate, Rhythm, No Edema, No Gallop, No JVD, No Murmur, Normal Peripheral Pulses Gastrointestinal: Normal Bowel Sounds, No Organomegaly, No Pulsatile Mass, Non Tender, Soft Back: Normal Inspection, No CVA Tenderness, No Vertebral Tenderness Extremity: Normal Capillary Refill, Normal Inspection, Normal Range of Motion, Non Tender, No Calf Tenderness, Other (Bilateral lower amputations) Neurologic/Psychiatric: Alert, Oriented x3, No Motor/Sensory Deficits, Normal Mood/Affect, 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 FIM Transfers Therapy Code Descriptions/Definitions Functional [place] Measure: 0=Not Assessed/NA 4=Minimal Assistance 1=Total Assistance 5=Supervision or Setup 2=Maximal Assistance 6=Modified [place] 3=Moderate Assistance 7=Complete IndependenceSCALE: Activities may be completed with or without assistive devices. 0-Xeqfyucaxp-elsrtpd completes the activity by him/herself with no assistance from a helper. 5-Set-up or Clean-up Assistance-helper sets up or cleans up; patient completes activity. [place] assists only prior to or following the activity. 4-Supervision or Touching Assistance-helper provides verbal cues and/or touching/steadying and/or contact guard assistance as patient completes activi ty. Assistance may be provided throughout the activity or intermittently. 3-Partial/Moderate Assistance-helper does LESS THAN HALF the effort. [place] lifts, holds or supports trunk or limbs, but provides less than half the effort. 2-Substantial/Maximal Assistance-helper does MORE THAN HALF the effort. [place] lifts or holds trunk or limbs and provides more than half the effort. 1-Hxqwzogaq-ojzkat does ALL the effort. Patient does none of the effort to complete the activity. Or, the assistance of 2 or more helpers is required for the patient to complete the activity. If activity was not attempted, code reason: 7-Patient Refused. 9-Not Applicable-not attempted and the patient did not perform the activity before the current illness, exacerbation or injury. 10-Not Attempted due to Environmental Limitations-(lack of equipment, weather restraints, etc.). 88-Not Attempted due to Medical Conditions or Safety Concerns. Roll Left to Right (QC): 6 Sit to Lying (QC): 6 Sit to Stand (QC): 88 Chair/Rrv-ql-Woocl Xfer(QC): 2 Car Transfer (QC): 88 Gait Training Walk 10 feet (QC): 9 Walk 50 ft with 2 Turns(QC): 9 Walk 150 ft (QC): 9 Walking 10ft/uneven surface-QC: 9 Wheelchair Training Does the Pt Use a Wheelchair?: Yes Wheel 50 ft with 2 turns (QC): 6 Wheel 150 ft (QC): 6 Stair Training 1 Step (curb) (QC): 9 4 Steps (QC): 9 12 Steps (QC): 9 Balance Picking up an Object (QC): 9 Assessment/Plan Assessment and Plan Assess & Plan/Chief Complaint Assessment: Bilateral BKA's Severe PAD Smoker Severe pain post op Plan: Pain control Monitor labs 04/21/2022: Pain control Monitor bm (1) S/P bilateral below knee amputation ATIF LIND DO Apr 21, 2022 07:37
[2022-04-21] MEDS: polyethylene glycoL POWDER 17 GM (MIRALAX) PACK PO SCH ×2 (08:56→21:26)
[2022-04-21] MEDS: DOCUSATE SODIUM 100 MG (COLACE) CAP PO SCH ×2 (08:59→21:26)
[2022-04-21] MEDS: SENNA W/DOCUSATE (SENOKOT S) TABLET PO SCH ×2 (08:59→21:26)
[2022-04-21] MEDS: APIXABAN 5 MG (ELIQUIS) TABLET PO SCH ×2 (09:01→21:06)
[2022-04-21 09:13] VITALS: BP 100/61
[2022-04-21] MEDS: MICONAZOLE 2% POWDER (DESENEX AF) 90 GM TOP SCH ×2 (15:01→21:07)
[2022-04-21 20:24] VITALS: BP 113/61
--- NOTE | 2022-04-22 06:19 | PM&R Progress Note ---
Subjective HPI/CC On Admission Date Seen by Provider: Apr 22, 2022 Time Seen by Provider: 10:30 Subjective/Events-last exam 04/22/2022: Patient doing well Receiving Dilaudid 1 hour before dressing changes Overall doing pretty well Working on swallowing with barium swallow 04/21/2022: Patient doing pretty well Bowels moved yesterday Decreasing Dilaudid use Nystatin powder helpful Review of Systems General: Fatigue, Malaise Musculoskeletal: leg pain Objective Exam Vital Signs Vital Signs Date Time Temp Pulse Resp B/P (MAP) Pulse Ox O2 Delivery O2 Flow Rate FiO2 04/22/22 08:41 Room Air 04/22/22 07:32 36.9 80 16 107/53 (71) 98 Capillary Refill : General Appearance: No Apparent Distress, WD/WN, Chronically ill, Thin HEENT: PERRL/EOMI, Normal ENT Inspection, Pharynx Normal Neck: Full Range of Motion, Normal Inspection, Non Tender, Supple, Carotid Bruit Respiratory: Chest Non Tender, Lungs Clear, Normal Breath Sounds, No Accessory Muscle Use, No Respiratory Distress Cardiovascular: Regular Rate, Rhythm, No Edema, No Gallop, No JVD, No Murmur, Normal Peripheral Pulses Gastrointestinal: Normal Bowel Sounds, No Organomegaly, No Pulsatile Mass, Non Tender, Soft Back: Normal Inspection, No CVA Tenderness, No Vertebral Tenderness Extremity: Normal Capillary Refill, Normal Inspection, Normal Range of Motion, Non Tender, No Calf Tenderness, Other (Bilateral lower amputations) Neurologic/Psychiatric: Alert, Oriented x3, No Motor/Sensory Deficits, Normal Mood/Affect, 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 FIM Transfers Therapy Code Descriptions/Definitions Functional [place] Measure: 0=Not Assessed/NA 4=Minimal Assistance 1=Total Assistance 5=Supervision or Setup 2=Maximal Assistance 6=Modified [place] 3=Moderate Assistance 7=Complete IndependenceSCALE: Activities may be completed with or without assistive devices. 2-Retcgpaufd-ovpxjwv completes the activity by him/herself with no assistance from a helper. 5-Set-up or Clean-up Assistance-helper sets up or cleans up; patient completes activity. [place] assists only prior to or following the activity. 4-Supervision or Touching Assistance-helper provides verbal cues and/or touch ing/steadying and/or contact guard assistance as patient completes activity. Assistance may be provided throughout the activity or intermittently. 3-Partial/Moderate Assistance-helper does LESS THAN HALF the effort. [place] lifts, holds or supports trunk or limbs, but provides less than half the effort. 2-Substantial/Maximal Assistance-helper does MORE THAN HALF the effort. [place] lifts or holds trunk or limbs and provides more than half the effort. 0-Yfretfdcc-xqmzru does ALL the effort. Patient does none of the effort to complete the activity. Or, the assistance of 2 or more helpers is required for the patient to complete the activity. If activity was not attempted, code reason: 7-Patient Refused. 9-Not Applicable-not attempted and the patient did not perform the activity before the current illness, exacerbation or injury. 10-Not Attempted due to Environmental Limitations-(lack of equipment, weather restraints, etc.). 88-Not Attempted due to Medical Conditions or Safety Concerns. Roll Left to Right (QC): 6 Sit to Lying (QC): 6 Sit to Stand (QC): 88 Chair/Cyq-ys-[place] Xfer(QC): 2 Car Transfer (QC): 88 Gait Training Walk 10 feet (QC): 9 Walk 50 ft with 2 Turns(QC): 9 Walk 150 ft (QC): 9 Walking 10ft/uneven surface-QC: 9 Wheelchair Training Does the Pt Use a Wheelchair?: Yes Wheel 50 ft with 2 turns (QC): 6 Wheel 150 ft (QC): 6 Stair Training 1 Step (curb) (QC): 9 4 Steps (QC): 9 12 Steps (QC): 9 Balance Picking up an Object (QC): 9 Assessment/Plan Assessment and Plan Assess & Plan/Chief Complaint Assessment: Bilateral BKA's Severe PAD Smoker Severe pain post op Plan: Pain control Monitor labs 04/21/2022: Pain control Monitor bm 04/22/2022: Swallow eval (1) S/P bilateral below knee amputation ATIF LIND DO Apr 22, 2022 06:19
[2022-04-22] MEDS: PIPERACILLIN SODIUM/TAZOBACTAM 4.5 GM in NS (IVPB) 100 ML IV SCH (06:45)
[2022-04-22] MEDS: ONDANSETRON 4 MG (ZOFRAN) ORAL DISSOLVE TAB PO PRN (06:57)
[2022-04-22 07:32] VITALS: BP 107/53
--- NOTE | 2022-04-22 08:14 | Occupational Therapy Eval ---
OT Evaluation-General/PLF Medical Diagnosis Admission Date Apr 20, 2022 at 09:45 Medical Diagnosis: s/p B BKA Onset Date: Apr 17, 2022 Therapy Diagnosis Therapy Diagnosis: decreased ADL status Precautions Precautions/Isolations: Fall Prevention, Standard Precautions, Pressure Ulcer Referral Physician: Dr. Cordova Referral Reason: Evaluation/Treatment Medical History Pertinent Medical History: COPD, PVD Additional Medical History COPD, PVD, PAD, psoriasis, hernia, DVT Current History s/p bilateral BKA 04/17/22 due to gangrene Social History Home: mobile home Current Living Status: Significant Other Entry Into Home: Stairs Without Railing ADL-Prior Level of Function SCALE: Activities may be completed with or without assistive devices. 5-Zomoxgqvfi-yzeidvx completes the activity by him/herself with no assistance from a helper. 5-Set-up or Clean-up Assistance-helper sets up or cleans up; patient completes activity. [place] assists only prior to or following the activity. 4-Supervision or Touching Assistance-helper provides verbal cues and/or touching/steadying and/or contact guard assistance as patient completes activit y. Assistance may be provided throughout the activity or intermittently. 3-Partial/Moderate Assistance-helper does LESS THAN HALF the effort. [place] lifts, holds or supports trunk or limbs, but provides less than half the effort. 2-Substantial/Maximal Assistance-helper does MORE THAN HALF the effort. [place] lifts or holds trunk or limbs and provides more than half the effort. 3-Ghjbfvdzh-udkqns does ALL the effort. Patient does none of the effort to complete the activity. Or, the assistance of 2 or more helpers is required for the patient to complete the activity. If activity was not attempted, code reason: 7-Patient Refused. 9-Not Applicable-not attempted and the patient did not perform the activity before the current illness, exacerbation or injury. 10-Not Attempted due to Environmental Limitations-(lack of equipment, weather restraints, etc.). 88-Not Attempted due to Medical Conditions or Safety Concerns. ADL PLOF Comments Pt reports IND with ADLs and functional mobility at PLOF, using w/c for mobility. He stays up in the w/c all day, and sleeps in it. Dressing and urinal use at w/c. The only time he transfers out of the w/c is to get on/off of toilet for BM. Self Care: Independent Functional Cognition: Independent OT Current Status Subjective Pt in bed, agreeable to OT evaluation, then cotreatment with PT. Pt does not verbalize pain rating, but states it isn't bad at rest but can get severe with a ctivity. Mental Status/Objective Patient Orientation: Person, Place, Situation Attachments: IV Current Hearing Aids: No Dentures/Partials: No Hand Dominance: Right Upper Extremity ROM WFL Upper Extremity Coordination WFL Upper Extremity Strength grossly 4/5 ADL-Treatment Eating (QC): 6 Oral Hygiene (QC): 9 Shower/Bathe Self (QC): 5 (sponge bath at bed level) Upper Body Dressing (QC): 5 (Per clinical judgment, pt would be able to complete after set up assistance.) Lower Body Dressing (QC): 4 (SBA, VCs required at bed level in order to problem solve how to perform pant hike.) On/Off Footwear (QC): 88 Toileting Hygiene (QC): 5 (set up with urinal at bed level.) Other Treatments OT evaluation complete, OT/PT cotreat due to skill of 2 clinicians required which a rehabilitation therapy technician could not perform in order to coordinate UE/LEs, decrease fall risk, and due to pt's limitations in strength, activity tolerance, mobility/transfers. OT focused on UE placement, cues for sequencing and safety and ADLs, PT focused on LE placement, gross overall movement, transfers/mobility. Pt completed sponge bath and dressing at bed level, then transferred supine to sit EOB, independently. He has slight difficulty with supine to sit transfer, but doesn't require assistance. Min A SB transfer to w/c, assistance required with balance and keeping the board in place. In order to increase BUE Strength and activity tolerance, and increase independence with community mobility, pt performed w/c mobility around ARU common area, elevators, to 1st floor ramp, outside to sidewalk, ramp to front entrance, then back to ARU. Pt returned to his room, min A SB transfer to bed. Pt completed shower cap at bed level after set up assist. Post tx, pt in bed, call light in reach and all needs met. Education OT Patient Education: Correct positioning, Energy conservation, Modified ADL techniques, Progress toward Goal/Update tx plan, Purpose of tx/functional activities, Rehab process, Safety issues, Transfer techniques Teaching Recipient: Patient Teaching Methods: Discussion Response to Teaching: Verbalize Understanding OT Supervisor Stitching Department Goals Group Home Goals Time Frame: May 10, 2022 Eating (QC): 6 Oral Hygiene (QC): 9 Toileting Hygiene (QC): 6 Shower/Bathe Self (QC): 6 (sponge bath) Upper Body Dressing (QC): 6 Lower Body Dressing (QC): 6 On/Off Footwear (QC): 88 Additional Goals: 1-Demonstrate ADL Tasks, 2-Verbalize Understanding, 3- ImproveStrength/[place] 1=Demonstrate adherence to instructed precautions during ADL tasks. 2=Patient will verbalize/demonstrate understanding of assistive devices/modifications for ADL. 3=Patient will improve strength/tolerance for activity to enable patient to perform ADL's. OT Education/Plan Problem List/Assessment Assessment: Decreased Activ Tolerance, Decreased UE Strength, Impaired I ADL's, Impaired Self-Care Skills Discharge Recommendations Plan/Recommendations: Continue POC Treatment Plan/Plan of Care Patient would benefit from OT for education, treatment and training to promote independence in ADL's, mobility, safety and/or upper extremity function for ADL's. Plan of Care: ADL Retraining, Functional Mobility, Group Exercise/Act as Ind, UE Funct Exercise/Act Treatment Duration: May 10, 2022 Frequency: At least 5 of 7 days/Wk (IRF) Estimated Hrs Per Day: 1.5 hours per day Agreement: Yes Rehab Potential: Fair Time/GCodes Start Time: 07:50 Stop Time: 09:15 Total Time Billed (hr/min): 85 Billed Treatment Time OT eval [id number], OT/PT cotreat [id number] 1, EVL (10'), ADL 2 (30'), FA 3 (45') JAMESON LIU OT Apr 22, 2022 08:14
[2022-04-22] MEDS: APIXABAN 5 MG (ELIQUIS) TABLET PO SCH ×2 (08:17→21:05)
[2022-04-22] MEDS: SENNA W/DOCUSATE (SENOKOT S) TABLET PO SCH ×2 (08:19→20:12)
[2022-04-22] MEDS: DOCUSATE SODIUM 100 MG (COLACE) CAP PO SCH ×2 (08:19→20:11)
[2022-04-22] MEDS: polyethylene glycoL POWDER 17 GM (MIRALAX) PACK PO SCH ×2 (08:19→20:11)
[2022-04-22] MEDS: MICONAZOLE 2% POWDER (DESENEX AF) 90 GM TOP SCH ×2 (08:20→21:03)
--- NOTE | 2022-04-22 09:07 | Physical Therapy Daily Note ---
PT Daily Note-Current Subjective Patient in bed pre tx, agrees to PT, states pain isn't too bad at rest but is severe with activity. Will be co-treating with OT due to poor patient mobility, strength, endurance severe pain with activity, coordinate UE and LE during activity, safety and reduce risk of falls. Appearance Patient in bed post tx with nurse call, phone, tray, all needs met. Mental Status Patient Orientation: Person, Place, Situation Attachments: IV Transfers SCALE: Activities may be completed with or without assistive devices. 7-Yfjdrewumr-cupvexs completes the activity by him/herself with no assistance from a helper. 5-Set-up or Clean-up Assistance-helper sets up or cleans up; patient completes activity. [place] assists only prior to or following the activity. 4-Supervision or Touching Assistance-helper provides verbal cues and/or touching/steadying and/or contact guard assistance as patient completes activity. Assistance may be provided throughout the activity or intermittently. 3-Partial/Moderate Assistance-helper does LESS THAN HALF the effort. [place] lifts, holds or supports trunk or limbs, but provides less than half the effort. 2-Substantial/Maximal Assistance-helper does MORE THAN HALF the effort. [place] lifts or holds trunk or limbs and provides more than half the effort. 9-Puqcfxbgy-pfqrxd does ALL the effort. Patient does none of the effort to complete the activity. Or, the assistance of 2 or more helpers is required for the patient to complete the activity. If activity was not attempted, code reason: 7-Patient Refused. 9-Not Applicable-not attempted and the patient did not perform the activity before the current illness, exacerbation or injury. 10-Not Attempted due to Environmental Limitations-(lack of equipment, weather restraints, etc.). 88-Not Attempted due to Medical Conditions or Safety Concerns. Roll Left & Right (QC): 6 Sit to Lying (QC): 6 Lying to Sitting/Side of Bed(Q: 6 Chair/Xwb-cr-Oipri Xfer(QC): 3 Patient performs bathing and dressing, performs supine to sit with independence, has some difficulty but doesn't need assist with it. Patient performs a sliding board transfer with min assist to WC, needs min assist with balance and keeping board in place. After getting back to his room patient needs min assist again with sliding board transfer back to bed. Weight Bearing Non Weight Bearing Non Weight Bearing Wheelchair Training Does the Pt Use a Wheelchair?: Yes Wheel 50 ft with 2 turns (QC): 6 Wheel 150 ft (QC): 6 Type of Wheelchair: Manual Patient propelled WC over 800', through hallways, down elevator (patient pushed buttons), down ramp, over sidewalk outside, and uphill on sidewalk. Exercises BLE supine exercises x20 (SLR, GS, QS attempted but patient was reluctant due to pain) Treatments PT performed positioning and safety during bathing and dressing, transfers, WC mobility, OT performed bathing, dressing, UE positioning and safety during activity. Assessment improved sliding board transfer PT Short Term Goals Short Term Goals Time Frame: May 04, 2022 Roll Left & Right: 6 Sit to lyin Lying to sitting on side of be: 6 Sit to stand: 6 Chair/ypr-ag-tczuu transfer: 4 Toilet transfer: 4 Car transfer: 4 Wheel 50ft w/2 turns: 6 Wheel 150 feet: 6 Type: Manual PT Contract Negotiator Goals Contract Negotiator Goals PT Assisted Goals Time Frame: May 11, 2022 Roll Left & Right (QC): 6 Sit to Lying (QC): 6 Lying-Sitting on Side/Bed(QC): 6 Sit to Stand (QC): 9 Chair/Hmq-he-Gyzsa Xfer(QC): 6 Toilet Transfer (QC): 6 Car Transfer (QC): 6 Does the Patient Walk: No and Walking Goal NOT indicated Walk 10 feet (QC): 9 Walk 50ft with 2 Turns (QC): 9 Walk 150 ft (QC): 9 Walking 10ft on Uneven Surface: 9 1 Step (curb) (QC): 9 4 Steps (QC): 9 12 Steps (QC): 9 Picking up an Object (QC): 9 Does the Pt use WC or Scooter?: Yes Wheel 50 feet with 2 turns (QC: 6 Type: Manual Wheel 150 feet: 6 Type: Manual PT Plan Problem List Problem List: Activity Tolerance, Functional Strength, Safety, Balance, Transfer, Bed Mobility, ROM Treatment/Plan Treatment Plan: Continue Plan of Care Treatment Plan: Bed Mobility, Education, Functional Activity [place], Functional Strength, Group Therapy, Safety, Therapeutic Exercise, Transfers Treatment Duration: May 11, 2022 Frequency: At least 5 of 7 days/Wk (IRF) Estimated Hrs Per Day: 1.5 hours per day Patient and/or Family Agrees t: Yes Safety Risks/Education Patient Education: Transfer Techniques, Correct Positioning, W/C Management, Safety Issues Teaching Recipient: Patient Teaching Methods: Demonstration, Discussion Response to Teaching: Reinforcement Needed Time/GCodes Time In: 0800 Time Out: 914 Total Billed Treatment Time: 75 Total Billed Treatment 1 visit EX 10' FA 65' co-treated for 75' JUAN RAMON HEARD PT Apr 22, 2022 09:07
--- NOTE | 2022-04-22 10:15 | Individualized Plan of Care ---
Individualized Plan of Care Rehab Nursing IPOC Order Admission Date Apr 20, 2022 at 09:45 Current Orders Orders Admission Order(Inpt,Obs,Sdc) (04/20/22 05:59) Vital Signs: Per Unit Policy ( 08,16,00 (04/20/22 05:59) Kali Rosario (04/20/22 05:59) Sequential Compression Device (04/20/22 05:59) Blanker Operator-Inpt Rehab Con (04/20/22 05:59) Rehab Nursing Orders-Ipoc (04/20/22 05:59) Physical Therapy Rehab Orders (04/20/22 05:59) Occupational Therapy Rehab Ord (04/20/22 05:59) Speech Therapy Rehab Orders (04/20/22 05:59) Cbc With Automated Diff (04/21/22 06:00) Comprehensive Metabolic Panel (04/21/22 06:00) Precautions (Aru) (04/20/22 05:59) Rehab-Intensity Of Therapy (04/20/22 05:59) Initiate Admission Nursing Pro .admission (04/20/22 05:59) Alprazolam Tablet (Xanax Tablet) (04/20/22 06:00) Calcium Carbonate Chew Tablet (Antacid C (04/20/22 06:00) Diphenhydramine Tablet (Benadryl Tablet) (04/20/22 06:00) Docusate Sodium Capsule (Colace Capsule) (04/20/22 11:45) Docusate Sodium Capsule (Colace Capsule) (04/20/22 06:00) Bisacodyl Suppository (Dulcolax Supposit (04/20/22 06:00) Lactulose Oral Solution (Enulose Oral So (04/20/22 06:00) Na Phos/Na Biphos Enema (Fleet Enema Joe (04/20/22 06:00) Guaifenesin/Codeine Syrup (Robitussin Ac (04/20/22 06:00) Loperamide Tablet (Imodium Tablet) (04/20/22 06:00) Melatonin Tablet (Melatonin Tablet) (04/20/22 06:00) Polyethylene Glycol Powder Pkt (Miralax (04/20/22 11:45) Ondansetron Oral Dissolve Tab (Zofran (04/20/22 06:00) Senna S Tablet (Senokot S Tablet) (04/20/22 11:46) Acetaminophen Tablet/Caplet (Tylenol T (04/20/22 06:00) Code/Resuscitation (04/20/22 05:59) Admission Arrival Bed Request (04/20/22 09:45) Patient Visit (04/20/22 ) Pt Eval High Complexity (04/20/22 ) Dressing Order (Intervention) DAILY PRN (04/20/22 11:09) Hydromorphone Injection (Dilaudid Inject (04/20/22 11:15) Ondansetron Injection (Zofran Injectio (04/20/22 11:15) Consult General Surgery (04/20/22 11:09) Consult Wound Care Physician (04/20/22 11:09) Morphine Er Tablet (Ms Contin Tablet) (04/20/22 14:00) Oxycodone Immediate Rel Tablet (Oxyir Ta (04/20/22 11:15) Piperacillin Sodium/Tazobactam (Zosyn Vi (04/20/22 14:00) Apixaban Tablet (Eliquis Tablet) (04/20/22 21:00) Dys3 Advanced/Ground Meat (04/20/22 Lunch) Iv Convert To Heplock (Order) (04/20/22 12:41) Miconazole 2% Powder (Phytoplex Af 2% Po (04/21/22 12:15) Hydromorphone Injection (Dilaudid Inject (04/21/22 12:15) Dys2 Mechanically Altered (04/22/22 Lunch) Modified Barium Swallow (04/22/22 10:25) Amoxicillin/Clavulanate Tablet (Augmenti (04/22/22 18:00) Modified Barium Swallow (04/24/22 09:45) Patient Visit (04/22/22 ) Speech Sound Lang Comp (04/22/22 ) Treat. Speech/Lang/Voice (04/22/22 ) Dysphagia Evaluation Std (04/22/22 ) Dysphagia Therapy (04/22/22 ) Modified Barium Swallow (04/24/22 09:45) Hypochlorous Acid/Sod Chloride (Vashe Wo (04/22/22 11:30) Patient Visit (04/22/22 ) Exercise Therap, Ea 15 Min (04/22/22 ) Functional Activities, Ea 15 (04/22/22 ) Nursing Communication (Order) (04/22/22 15:50) Rehab Nursing Orders: Ongoing Assess. of Cognitive Status, Ongoing Assess. of Function Status, Bladder Management, Bladder Scan, Bladder Training, Bowel Management, Bowel Training, Disease Management & Educaiton, DVT Prophylaxis, Fall Prevention, Fluid/Electrolyte/Nutrition Mgmt, Infection Prevention, Medication Management & Education, Management of Risks & Complications, Management of Skin Intergrity, Nutrition Management, Pain Management, Patient/Family Support, Safety Management, Wound Management Intensity of Therapy to be met Patient to be seen: Min.3h per day/5 of 7d PT IPOC Problem List: Activity Tolerance, Functional Strength, Safety, Balance, Transfer, Bed Mobility, ROM Treatment Plan: Continue Plan of Care Bed Mobility, Education, Functional Activity Bronson, Functional Strength, Group Therapy, Safety, Therapeutic Exercise, Transfers Treatment Duration: May 11, 2022 Frequency: At least 5 of 7 days/Wk (IRF) Estimated Hrs Per Day: 1.5 hours per day OT IPOC Problems: Decreased Activ Tolerance, Decreased UE Strength, Impaired I ADL's, Impaired Self-Care Skills OT Treatment, Training and Edu: Yes Plan of Care: ADL Retraining, Functional Mobility, Group Exercise/Act as Ind, UE Funct Exercise/Act Treatment Duration: May 10, 2022 Frequency: At least 5 of 7 days/Wk (IRF) Estimated Hrs Per Day: 1.[address] IPOC Speech Therapy Treatment Plan: Continue Plan of Care Treatment Duration: Apr 22, 2022 Frequency: Modified Program (IRF) Estimated Hrs Per Day: .5 hour per day Blanker Operator/Case Mgmt Blanker Operator/Case Managemen: Discharge Planning Dietitian/Bag Shop Worker Dietitian/Bag Shop Worker to monitor nutritional status and make changes and/or recommendations as needed and work with speech pathology on dietary upgrades as the occur. Physician IPOC Medical Issues being managed closely and that require the 24 hour availability of a physician: Recent bilateral BKA's will require close monitoring with abx completion and pain control along with aggressive vital monitoring Medical Issues: Bowel/Bladder Function, DVT Prophylaxis, Falls Precautions, Fluid/Electrolyte/Nutrition Balance, Infection Protection, Pain Management, Wound Care Brief Synthesis of Preadmission Screen, Post-Admission Evaluation, and Therapy Evaluations: PT OT ST will focus on regaining functioning in order to regain enough function with use of assistive devices to return to living independently Medical Prognosis: Fair Anticipated Length of Stay: 10 days ATIF LIND DO Apr 22, 2022 10:15
[2022-04-22] MEDS: HYDROmorphone 2 MG/ML VIAL (DILAUDID) IV PRN (10:16)
--- NOTE | 2022-04-22 10:56 | ST Dysphagia Evaluation ---
Speech Evaluation-General Medical Diagnosis s/p B BKA Onset Date: Apr 17, 2022 Therapy Diagnosis Therapy Diagnosis: Oropharyngeal Dysphagia Precautions Precautions: Fall, Aspiration Precautions/Isolations: Aspiration, Fall Prevention, Standard Precautions Referral Referring Physician: Dr. Cordova Reason for Referral: Evaluation/Treatment Medical History Pertinent Medical History: COPD, PVD Current History The patient is a 41 year-old male with past medical history of severe peripheral artery disease who presents to ARU following a bilateral lower extremity amputation by Dr. Fernandez. Reviewed History: Yes Social History Current Living Status: Significant Other Speech PLF/Current-Dysphagia Prior Level of Function The patient stated he has experienced a globus sensation which he localizes to the laryngeal region since approximately 2003. The patient stated he is unable to consume dry solids or many meat products due to the globus sensation and he often expectorates the consistency following attempts. The patient denied concerns regarding thin liquids or s/s of suspected aspiration with thin liquid consistencies. The patient stated he currently consumes a soft diet with thin li quids and crushes his medication. The patient denies a recent or recurrent diagnosis of pneumonia. Subjective The patient was seated upright in his bed, awake and alert upon entrance to his room by the clinician. The patient greeted the clinician appropriately and was agreeable to participation in the clinical bedside swallowing evaluation. Cognitive Status Patient Orientation: Person, Place, Time, Situation Oral Motor Skills Dentition: Edentalous Current Food Consistancy: Dysphagia Soft, Thin Liquids Ability to Follow Directions: Excellent Oral Expression Ability: No Impairment Voice Voice Phonatory-Based Quality: Normal Voice Pitch: Normal Voice Loudness: Normal Face Facial Symmetry: Symmetrical Oral-Facial Assessment Oral-Facial Dentition: Normal Labial Seal Description: Normal Smile: Normal Puff Cheeks: Normal Lingual Protrusion: Normal Lingual ROM: Normal Lingual Strength: Normal Volitional Dry Swallow: Yes Voluntary Cough: Yes Can Clear Throat Volitionally: Yes Productive Cough: Yes Productive Throat Clear: Yes Dysphagia Evaluation Consistencies Presented: Thin Liquid, Mechanical Soft, Ground, Pureed The patient is able to appropriately receive bolus material from the teaspoon and straw. No anterior spillage is present. Prolonged and poorly coordinated mastication and bolus formation were present with solid consistencies. The patient would independently expectorate pieces he felt were "too hard." Posterior transfer was displayed with all consistencies tested. Laryngeal elevation was present with palpation. Onset of the pharyngeal swallow appeared timely. No s/s of suspected aspiration were demonstrated with thin liquids or puree. With finely ground solids, no s/s of suspected aspiration were present. With larger pieces, the patient would expectorate the material into a napkin. Per patient, "Maybe a have a pocket or it narrow or something in there." Dietary Recommendations: Ground (Dysphagia two.) Liquid Recommendations: Thin Recommendations: - Dysphagia two consistency diet with thin liquids, as tolerated. - Fully upright and alert for PO intake. - Small, single bites and sips. - Alternate bites and sips on a 1:1 ratio. - Provide additional sauces and gravies to ease with pharyngeal clearance. - Crush medication and place in puree for administration. - Monitor for s/s of suspected aspiration with PO intake. If demonstrated, contact speech pathology. - Complete a modified barium swallow evaluation to further investigate the patient's reported globus sensation (which has been present since 2003). The MBS is scheduled for April 24 at 0945. The results and recommendations were provided to the patient immediately following the evaluation. All of the patient's questions were answered within the clinician's scope of practice and the patient verbalized comprehension. The patient's RN was provided the recommendations, as well. Dysphagia Evaluation Summary The patient demonstrated oropharyngeal dysphagia characterized by reduced mastication and poor pharyngeal clearance of solid consistencies. Please see above for additional details. Speech Short Term Goals Short Term Goals Short Term Goals 1. The patient will demonstrate swallowing strategies with 90% accuracy, independently. Time Frame-STG: Five Days. Speech Travel Ot Goals Nursing Home Goals 1. The patient will tolerate the least restrictive diet consistency without s/s of suspected aspiration. Time Frame: Two Weeks. Speech-Plan Treatment Plan Speech Therapy Treatment Plan: Continue Plan of Care Treatment Duration: May 06, 2022 Frequency: 3 times per week (Three to five times per week.) Estimated Hrs Per Day: .5 hour per day Rehab Potential: Fair Pt/Family Agrees to Plan: Yes Safety Risks/Education Teaching Recipient: Patient Teaching Methods: Discussion Response to Teaching: Verbalize Understanding Education Topics Provided: Results, Recommendations, Swallowing Strategies Time Speech Therapy Time In: 10:16 Speech Therapy Time Out: 10:32 Total Billed Time: 16 Billed Treatment Time 1, ISATU STAPLES [facility] ST Apr 22, 2022 10:56
--- NOTE | 2022-04-22 10:56 | ST Cognitive Linguistic Eval ---
Speech Evaluation-General Medical Diagnosis s/p B BKA Onset Date: Apr 17, 2022 Therapy Diagnosis Therapy Diagnosis: Intact Cognitive Linguistic Skills Precautions Precautions: Fall Precautions/Isolations: Fall Prevention, Standard Precautions Referral Referring Physician: Dr. Cordova Reason for Referral: Evaluation/Treatment Medical History Pertinent Medical History: COPD, PVD Current History The patient is a 41 year-old male with a past medical history of severe peripheral artery disease who presents following a bilateral lower extremity amputation by Dr. Fernandez. Reviewed History: Yes Social History Current Living Status: Significant Other Speech PLF-Current Status Prior Level of Function The patient denied prior challenges with speech, language or cognition. Subjective The patient was seated upright in his bed, awake and alert upon entrance to his room by the clinician. The patient greeted the clinician appropriately and was agreeable to participation in the cognitive linguistic assessment. Language Eval: Auditory Comprehends Simple Yes/No Ques: Functional Indent/Objects Multiple Sahu: Functional Ident/Pics in Multiple Sahu: Functional Follows 1-Step Commands: Functional Follows Complex Directions: Functional Follows General Conversations: Functional Language Eval: Verbal Language Completes Spontaneous Greeting: Functional Produces Auto, Serial Info: Functional Imitates Simple Words/Phrases: Functional Word Finding: Functional Requests Basic Needs: Functional States Basic Personal Info: Functional Expresses Complex Ideas: Functional Language Evaluation: Reading Follows Simple Written Direct: Functional Language Evaluation: Writing Writes to Simple Dictation: Functional Cognitive Patient Orientation The patient was independently oriented to self, location, month, day of week, date and year. Objective Cognitive Domain Attention: WNL Memory: WNL Problem Solving: Functional Executive Functions: WNL Visuospatial Skills: WNL Composite Severity Rating: WNL Objective Formal/Standardized Tests [facility] Status Exam (UMS) Results The patient demonstrated a result of +27/30 correlating to cognitive linguistic skills within normal limits. Oral Motor/Speech Production The patient does not display dysarthria or apraxia of speech. The patient remains 100% intelligible in known and unknown contexts. Impression The patient demonstrates intact neurocognitive skills. The patient displayed a reduction of two points due to his error following immediate recall of details from a paragraph read aloud. Speech Patient Assess Expression of Ideas/Wants: Expression (4) Understanding Verbal Content: Understands (4) Brief Interview-Mental Status: Yes Repetition of Three Words: Three (3) Temporal Orientation: Year: Correct (3) Temporal Orientation: Month: Accurate within 5 days(2) Temporal Orientation: Day: Correct (1) Recall : Wear to say "Sock": Yes, no cue required (2) Recall : Color: Yes, no cue required (2) Recall : Bed: Yes,after cueing (1) Memory/Recall Ability: Current season, Location of own room, Staff names and faces, That he or she is in a hsp/hsp unit Speech-Plan Treatment Plan Speech Therapy Treatment Plan: Discontinue ST (Discontinue cognitive evaluation/treatment) Treatment Duration: Apr 22, 2022 Frequency: 1 time per week Estimated Hrs Per Day: .5 hour per day Rehab Potential: Good Pt/Family Agrees to Plan: Yes Safety Risks/Education Teaching Recipient: Patient Teaching Methods: Discussion Response to Teaching: Verbalize Understanding Education Topics Provided: Results of ANYI PAIGE Speech Therapy Time In: 10:00 Speech Therapy Time Out: 10:16 Total Billed Time: 16 Billed Treatment Time 1, AXEL MCCABE [facility] ST Apr 22, 2022 10:56
--- NOTE | 2022-04-22 17:25 | Wound Care Assessment ---
Wound Care Assessment Date Seen by Provider: Apr 22, 2022 Time Seen by Provider: 16:30 Chief Complaint Bilateral guillotine amputation BKA wounds HPI This unfortunate 41 year old male was admitted with gangrenous chronic wound of b/l feet. He was previously admitted to the hospital with toe amputations for arterial ulcers in past. Unfortunately, he failed to follow up as recommended with the wound care clinic. Alex lives in a trailer in [place] with his . 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 On admit Alex was found on plain film to have diffuse osseus demineralization and erosions of L. 4 metatarsal. He was also found on CTA to have bilateral arterial disease with complete occlusion of left superficial femoral and popliteal arteries. He did also have non-occlusive diffuse thrombus on bilateral venous studies. Alex was supposed to be on Xarelto as an outpatient and did not comply with taking this medication. Alex has a h/o smoking 2-3 ppd and drinking 1.7L of hard liquor daily. He states that he is now smoking "only" 1ppd and drinking 3 8oz glasses of liquor daily. Alex does not have a vehicle for transportation to wound care follow up. appliance worker is working to set up care van for follow up. I cannot order home health care for daily dressing changes as Alex is requesting. He will need weekly follow up in clinic along with 1-2 times per week for home health. Even with Home health he will need to do daily dressing changes himself (or have a family memeber do for him). He states that he is getting a ramp put in currently that will assist in his ability to get out of the home for follow up. He does admit he may need to move to a new place if this cannot occur. Alex does also have PEM (see albumin from admit) and is being supplemented with Ensure. He notes that he has lost significant weight in the last year. Alex had bilateral emergent guillotine BKA yesterday for his gangrene. His wound bed is pale and without good granulation today. He does continue to have edema (though improved per patient). He is on broad spectrum antibiotics. Wound cultures were obtained and are pending. Antibiotics per primary team. Alex has significant pain. He did not tolerate wound vac on last admission due to pain and declines at this visit as well. He had significant pain just with dressing changes (requires numerous breaks and takes a long time). I am not optimistic about Alex's healing with either revision and closure (high risk of flap failure) or with regular weekly wound care (due to poor vascular supply and follow up/infection concerns). Past Medical History: Admits Deep Vein Thrombosis, Admits Peripheral Artery Disease Smoking Status: Current Everyday Smoker Exam Vital Signs Date Time Temp Pulse Resp B/P (MAP) Pulse Ox O2 Delivery O2 Flow Rate FiO2 04/22/22 07:32 36.9 80 16 107/53 (71) 98 Room Air Capillary Refill : General Appearance: WD/WN, no apparent distress, other (bilateral BKA) HEENT: other (normal hearing) Neck: full range of motion Respiratory: no respiratory distress, no accessory muscle use Extremities: swelling, other (bilateral BKA (guillotine)) Neurologic/Psychiatric: alert, normal mood/affect, oriented x 3 Skin: normal color, warm/dry Skin Problem Location: lower extremities Wound assessments: Bilateral BKA: The epithelialization is none. Drainage is large and serosanguinous. Granulation is none. Necrotic is large and slough. Margins are flat. Bone, muscle and tendon exposed. Assessment/Plan/Dx Assessment: 1. 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 Cellulitis 3. Alcohol abuse 4. Heavy tobacco abuse 5. Severe PAD 6. Venous disease with non-occlusive thrombus 7. Lymphedema 8. PEM 9. Noncompliance with medications, follow up and lifestyle changes Plan: 1. Cleanse daily with Vashe. Xeroform to wound bed with ABD, kerlix and secure with XANDER. Change daily and prn for saturation. 2. Targeted antibiotics per cultures 3. Counseled on cessation 4. Counseled on cessation 5. Counseled on risks of further disease, failure of healing. Patient verbalizes understanding 6. Compliance with anticoagulation encouraged 7. XANDER wrap 8. Protein supplementation already ordered 9. This case is a complex social situation. I am not optimistic wound healing can be obtained with current social setting/living environment. We will follow along through his stay and agree with renal social worker input to assist in outpatient care needs. HARLEEN SMITH MD Apr 22, 2022 17:24
[2022-04-22] MEDS: AUGMENTIN 875 MG TAB (AMOXICILLIN/CLAVULANATE) PO SCH (17:42)
[2022-04-22 20:55] VITALS: BP 101/60
--- NOTE | 2022-04-22 21:53 | Progress Note - Surgery ---
Subjective Date Seen by a Provider: Apr 22, 2022 Time Seen by a Provider: 13:19 Subjective/Events-last exam Patient doing well. Pain controlled. Dressing changed earlier by wound care. Denies any issues. Denies n/v fever sweats chills shortness of breath or chest pain. Objective Exam Vital Signs Date Time Temp Pulse Resp B/P (MAP) Pulse Ox O2 Delivery O2 Flow Rate FiO2 04/22/22 20:55 37.1 92 16 101/60 (74) 96 Room Air 04/22/22 08:41 Room Air 04/22/22 07:32 36.9 80 16 107/53 (71) 98 Room Air I & O 04/22/22 07:00 Intake Total 100 ml Balance 100 ml Capillary Refill : General Appearance: No Apparent Distress, WD/WN, Chronically ill, Thin HEENT: PERRL/EOMI, Normal ENT Inspection, Pharynx Normal Neck: Normal Inspection, Non Tender, Supple Respiratory: Chest Non Tender, No Accessory Muscle Use, No Respiratory Distress Cardiovascular: Regular Rate, Rhythm, No JVD Gastrointestinal: non tender, soft Extremity: Normal Capillary Refill, Other (Bilateral lower amputations, dressing clean and intact) Neurologic/Psychiatric: Alert, Oriented x3, No Motor/Sensory Deficits, Normal Mood/Affect, prop worker II-XII Norm as Tested, Abnormal Gait (Can ambulate), Motor Weakness (Lower extremities) Skin: Normal Color, Warm/Dry Lymphatic: No Adenopathy Assessment/Plan Assessment/Plan Assessment/Plan S/P B/L BKA wound care pain control PT/OT CHASE GONZALEZ DO Apr 22, 2022 21:53
--- NOTE | 2022-04-23 06:07 | PM&R Progress Note ---
Subjective HPI/CC On Admission Date Seen by Provider: Apr 23, 2022 Time Seen by Provider: 10:00 Subjective/Events-last exam 04/23/2022: Patient doing about the same Wound care change requires Dilaudid prior to Dysphagia continues Bowels are moving 04/22/2022: Patient doing well Receiving Dilaudid 1 hour before dressing changes Overall doing pretty well Working on swallowing with barium swallow 04/21/2022: Patient doing pretty well Bowels moved yesterday Decreasing Dilaudid use Nystatin powder helpful Review of Systems Musculoskeletal: leg pain Objective Exam Vital Signs Vital Signs Date Time Temp Pulse Resp B/P (MAP) Pulse Ox O2 Delivery O2 Flow Rate FiO2 04/23/22 20:30 96 Room Air 04/23/22 19:39 37.1 99 16 120/57 (78) Capillary Refill : General Appearance: No Apparent Distress, WD/WN, Chronically ill, Thin HEENT: PERRL/EOMI, Normal ENT Inspection, Pharynx Normal Neck: Normal Inspection, Non Tender, Supple Respiratory: Chest Non Tender, No Accessory Muscle Use, No Respiratory Distress Cardiovascular: Regular Rate, Rhythm, No JVD Gastrointestinal: Normal Bowel Sounds, No Organomegaly, No Pulsatile Mass, Non Tender, Soft Back: Normal Inspection, No CVA Tenderness, No Vertebral Tenderness Extremity: Normal Capillary Refill, Other (Bilateral lower amputations, dressing clean and intact) Neurologic/Psychiatric: Alert, Oriented x3, No Motor/Sensory Deficits, Normal Mood/Affect, 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 FIM Transfers Therapy Code Descriptions/Definitions Functional [place] Measure: 0=Not Assessed/NA 4=Minimal Assistance 1=Total Assistance 5=Supervision or Setup 2=Maximal Assistance 6=Modified [place] 3=Moderate Assistance 7=Complete IndependenceSCALE: Activities may be completed with or without assistive devices. 8-Kttgvnuiwl-nbjqtcx completes the activity by him/herself with no assistance from a helper. 5-Set-up or Clean-up Assistance-helper sets up or cleans up; patient completes activity. [place] assists only prior to or following the activity. 4-Supervision or Touching Assistance-helper provides verbal cues and/or touching/steadying and/or contact guard assistance as patient completes activity. Assistance may be provided throughout the activity or intermittently. 3-Partial/Moderate Assistance-helper does LESS THAN HALF the effort. [place] lifts, holds or supports trunk or limbs, but provides less than half the effort. 2-Substantial/Maximal Assistance-helper does MORE THAN HALF the effort. [place] lifts or holds trunk or limbs and provides more than half the effort. 8-Dsalarecv-jnvrnr does ALL the effort. Patient does none of the effort to complete the activity. Or, the assistance of 2 or more helpers is required for the patient to complete the activity. If activity was not attempted, code reason: 7-Patient Refused. 9-Not Applicable-not attempted and the patient did not perform the activity before the current illness, exacerbation or injury. 10-Not Attempted due to Environmental Limitations-(lack of equipment, weather restraints, etc.). 88-Not Attempted due to Medical Conditions or Safety Concerns. Roll Left to Right (QC): 6 Sit to Lying (QC): 6 Sit to Stand (QC): 88 Chair/Vob-sd-Mqpje Xfer(QC): 3 Car Transfer (QC): 88 Gait Training Walk 10 feet (QC): 9 Walk 50 ft with 2 Turns(QC): 9 Walk 150 ft (QC): 9 Walking 10ft/uneven surface-QC: 9 Wheelchair Training Does the Pt Use a Wheelchair?: Yes Wheel 50 ft with 2 turns (QC): 6 Wheel 150 ft (QC): 6 Type of Wheelchair: Manual Stair Training 1 Step (curb) (QC): 9 4 Steps (QC): 9 12 Steps (QC): 9 Balance Picking up an Object (QC): 9 ADL-Treatment Eating (QC): 6 Oral Hygiene (QC): 9 Shower/Bathe Self (QC): 5 (sponge bath at bed level) Upper Body Dressing (QC): 5 (Per clinical judgment, pt would be able to complete after set up assistance.) Lower Body Dressing (QC): 4 (SBA, VCs required at bed level in order to problem solve how to perform pant hike.) On/Off Footwear (QC): 88 Toileting Hygiene (QC): 5 (set up with urinal at bed level.) Assessment/Plan Assessment and Plan Assess & Plan/Chief Complaint Assessment: Bilateral BKA's Severe PAD Smoker Severe pain post op Plan: Pain control Monitor labs 04/21/2022: Pain control Monitor bm 04/22/2022: Swallow eval 04/23/2022: Monitor closely Swallow eval (1) S/P bilateral below knee amputation ATIF LIND DO Apr 23, 2022 06:07
[2022-04-23 07:31] VITALS: BP 116/60
[2022-04-23] MEDS: APIXABAN 5 MG (ELIQUIS) TABLET PO SCH ×2 (07:45→20:34)
[2022-04-23] MEDS: AUGMENTIN 875 MG TAB (AMOXICILLIN/CLAVULANATE) PO SCH ×2 (07:46→18:34)
[2022-04-23] MEDS: MICONAZOLE 2% POWDER (DESENEX AF) 90 GM TOP SCH ×2 (07:47→20:34)
--- NOTE | 2022-04-23 09:10 | Occupational Ther Daily Note ---
OT Current Status-Daily Note Subjective Pt laying in bed upon OT arrival, pt agreeable to tx. Mental Status/Objective Patient Orientation: Person, Place, Situation ADL-Treatment Therapy Code Descriptions/Definitions Functional [place] Measure: 0=Not Assessed/NA 4=Minimal Assistance 1=Total Assistance 5=Supervision or Setup 2=Maximal Assistance 6=Modified [place] 3=Moderate Assistance 7=Complete IndependenceSCALE: Activities may be completed with or without assistive devices. 6-Lppmqvkumg-qyceyow completes the activity by him/herself with no assistance from a helper. 5-Set-up or Clean-up Assistance-helper sets up or cleans up; patient completes activity. [place] assists only prior to or following the activity. 4-Supervision or Touching Assistance-helper provides verbal cues and/or touching/steadying and/or contact guard assistance as patient completes activity. Assistance may be provided throughout the activity or intermittently. 3-Partial/Moderate Assistance-helper does LESS THAN HALF the effort. [place] lifts, holds or supports trunk or limbs, but provides less than half the effort. 2-Substantial/Maximal Assistance-helper does MORE THAN HALF the effort. [place] lifts or holds trunk or limbs and provides more than half the effort. 1-Rmcxjrbkd-vufjxw does ALL the effort. Patient does none of the effort to complete the activity. Or, the assistance of 2 or more helpers is required for the patient to complete the activity. If activity was not attempted, code reason: 7-Patient Refused. 9-Not Applicable-not attempted and the patient did not perform the activity before the current illness, exacerbation or injury. 10-Not Attempted due to Environmental Limitations-(lack of equipment, weather restraints, etc.). 88-Not Attempted due to Medical Conditions or Safety Concerns. Lower Body Dressing (QC): 5 (Bedside setup) Other Treatment OT/PT cotreat due to skill of 2 clinicians required which a rehab services aide could not perform in order to coordinate UE/LEs, decrease fall risk, and due to pt's limitations in strength, activity tolerance, mobility/transfers. OT focused on UE placement, cues for sequencing and safety and ADLs, PT focused on LE placement, gross overall movement, transfers/mobility. Pt completed LBD while in bed, then used sliding board to transfer seated EOB to w/c, Min A. Pt completed functional mobility through hallways in w/c with 2lb wrist weights, ~400'. Pt wheeled to therapy gym to participate in seated EOB functional activities focusing on increasing BUE strength and endurance, activity tolerance, and seated balance/core strength. Pt used BUE to place 15 cones in all planes, 6x, 2lb wrist weights BUE. Pt encouraged to take RBs PRN, but pt declined. Pt completed [id number] of w/c pushups to increase BUE and increase IND in functional transfers, 2lb wrist weights BUEs. He then did tricep extensions and horizontal abductions with green Theraband (med/heavy resistance), ~15-20 reps each, 2lb wrist weights BUEs. Pt completed another round of functional mobility through hallways in w/c, no wrist weights, ~400'. Pt wheeled back to room and used a sliding board to transfer from w/c to bed, Min A. Post tx, pt left in bed with call light in reach and all needs met. Education OT Patient Education: Correct positioning, Energy conservation, Exercise prog jamie, Modified ADL techniques, Progress toward Goal/Update tx plan, Purpose of tx/functional activities, Rehab process, Transfer techniques, W/C management Teaching Recipient: Patient Teaching Methods: Demonstration, Discussion Response to Teaching: Verbalize Understanding, Return Demonstration OT Mixer Operator Raw Salt Goals Mixer Operator Raw Salt Goals Time Frame: May 10, 2022 Eating (QC): 6 Oral Hygiene (QC): 9 Toileting Hygiene (QC): 6 Shower/Bathe Self (QC): 6 (sponge bath) Upper Body Dressing (QC): 6 Lower Body Dressing (QC): 6 On/Off Footwear (QC): 88 Additional Goals: 1-Demonstrate ADL Tasks, 2-Verbalize Understanding, 3- ImproveStrength/[place] 1=Demonstrate adherence to instructed precautions during ADL tasks. 2=Patient will verbalize/demonstrate understanding of assistive devices/modifications for ADL. 3=Patient will improve strength/tolerance for activity to enable patient to perform ADL's. OT Education/Plan Problem List/Assessment Assessment: Decreased Activ Tolerance, Decreased UE Strength, Impaired Funct Balance, Impaired I ADL's, Impaired Self-Care Skills Discharge Recommendations Plan/Recommendations: Continue POC Treatment Plan/Plan of Care Patient would benefit from OT for education, treatment and training to promote independence in ADL's, mobility, safety and/or upper extremity function for ADL's. Plan of Care: ADL Retraining, Functional Mobility, Group Exercise/Act as Ind, UE Funct Exercise/Act Treatment Duration: May 10, 2022 Frequency: At least 5 of 7 days/Wk (IRF) Estimated Hrs Per Day: 1.5 hours per day Agreement: Yes Rehab Potential: Fair Time/GCodes Start Time: 08:00 Stop Time: 09:15 Total Time Billed (hr/min): 75 Billed Treatment Time 5967-6534: OT/PT cotreat 1, ADL (15'), Ex (10'), FA 3 (50') JAMESON LIU OT Apr 23, 2022 09:10
--- NOTE | 2022-04-23 09:16 | Physical Therapy Daily Note ---
PT Daily Note-Current Subjective Patient in bed pre tx, agrees to PT, has 3/10 pain in legs. Will be co-treating with OT due to poor patient mobility, severe pain with activity, coordinate UE and LE with activity, safety and reduce risk of falls. Appearance Patient in bed post tx with nurse call, phone, tray, all needs met. Mental Status Patient Orientation: Normal For Age Transfers SCALE: Activities may be completed with or without assistive devices. 1-Jnzhylrnir-hawdcns completes the activity by him/herself with no assistance from a helper. 5-Set-up or Clean-up Assistance-helper sets up or cleans up; patient completes activity. [place] assists only prior to or following the activity. 4-Supervision or Touching Assistance-helper provides verbal cues and/or touching/steadying and/or contact guard assistance as patient completes activity. Assistance may be provided throughout the activity or intermittently. 3-Partial/Moderate Assistance-helper does LESS THAN HALF the effort. [place] lifts, holds or supports trunk or limbs, but provides less than half the effort. 2-Substantial/Maximal Assistance-helper does MORE THAN HALF the effort. [place] lifts or holds trunk or limbs and provides more than half the effort. 6-Fdiqmfjrc-chnrla does ALL the effort. Patient does none of the effort to complete the activity. Or, the assistance of 2 or more helpers is required for the patient to complete the activity. If activity was not attempted, code reason: 7-Patient Refused. 9-Not Applicable-not attempted and the patient did not perform the activity before the current illness, exacerbation or injury. 10-Not Attempted due to Environmental Limitations-(lack of equipment, weather restraints, etc.). 88-Not Attempted due to Medical Conditions or Safety Concerns. Roll Left & Right (QC): 6 Sit to Lying (QC): 6 Lying to Sitting/Side of Bed(Q: 6 Chair/Ank-wy-Qayft Xfer(QC): 3 sliding board transfer min assist, performed it 4 times, needs assist placing board Weight Bearing Non Weight Bearing Non Weight Bearing Wheelchair Training Does the Pt Use a Wheelchair?: Yes Wheel 50 ft with 2 turns (QC): 6 Wheel 150 ft (QC): 6 Type of Wheelchair: Manual 800', practiced going up and down ramps, he can go forward up ramp using arms Exercises seated UE and trunk strengthening activity reaching for cones, 10x3 wheelchair pushups Treatments PT performed bed mobility and transfers, WC mobility, safety and positioning during exercise, OT performed dressing, UE positioning and safety during activity, 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 activity Assessment Current Status: Fair Progress improving transfers PT Short Term Goals Short Term Goals Time Frame: May 04, 2022 Roll Left & Right: 6 Sit to lyin Lying to sitting on side of be: 6 Sit to stand: 6 Chair/dgd-iq-zgxyx transfer: 4 Toilet transfer: 4 Car transfer: 4 Wheel 50ft w/2 turns: 6 Wheel 150 feet: 6 Type: Manual PT Roller Inspector Goals Roller Inspector Goals PT Roller Inspector Goals Time Frame: May 11, 2022 Roll Left & Right (QC): 6 Sit to Lying (QC): 6 Lying-Sitting on Side/Bed(QC): 6 Sit to Stand (QC): 9 Chair/Crm-bs-Jgiyv Xfer(QC): 6 Toilet Transfer (QC): 6 Car Transfer (QC): 6 Does the Patient Walk: No and Walking Goal NOT indicated Walk 10 feet (QC): 9 Walk 50ft with 2 Turns (QC): 9 Walk 150 ft (QC): 9 Walking 10ft on Uneven Surface: 9 1 Step (curb) (QC): 9 4 Steps (QC): 9 12 Steps (QC): 9 Picking up an Object (QC): 9 Does the Pt use WC or Scooter?: Yes Wheel 50 feet with 2 turns (QC: 6 Type: Manual Wheel 150 feet: 6 Type: Manual PT Plan Problem List Problem List: Activity Tolerance, Functional Strength, Safety, Balance, Transfer, Bed Mobility, ROM Treatment/Plan Treatment Plan: Continue Plan of Care Treatment Plan: Bed Mobility, Education, Functional Activity [place], Functional Strength, Group Therapy, Safety, Therapeutic Exercise, Transfers Treatment Duration: May 11, 2022 Frequency: At least 5 of 7 days/Wk (IRF) Estimated Hrs Per Day: 1.5 hours per day Patient and/or Family Agrees t: Yes Safety Risks/Education Patient Education: Transfer Techniques, Correct Positioning, W/C Management, Safety Issues Teaching Recipient: Patient Teaching Methods: Demonstration, Discussion Response to Teaching: Reinforcement Needed Time/GCodes Time In: 0800 Time Out: 0915 Total Billed Treatment Time: 75 Total Billed Treatment 1 visit EX 30' FA 45' co-treated for 75' JUAN RAMON HEARD PT Apr 23, 2022 09:16
[2022-04-23] MEDS: DOCUSATE SODIUM 100 MG (COLACE) CAP PO SCH ×2 (09:25→20:29)
[2022-04-23] MEDS: SENNA W/DOCUSATE (SENOKOT S) TABLET PO SCH ×2 (09:26→20:29)
[2022-04-23] MEDS: polyethylene glycoL POWDER 17 GM (MIRALAX) PACK PO SCH ×2 (09:26→20:29)
--- NOTE | 2022-04-23 10:02 | Speech Therapy Daily Note ---
Speech Daily Progress Note Subjective Date Seen by Provider: Apr 23, 2022 Time Seen by Provider: 09:30 The patient was seated upright in his bed, awake and alert upon entrance to his room by the clinician. The patient greeted the clinician appropriately and was agreeable to the dysphagia treatment session. Objective The clinician discussed with the patient the scheduled modified barium swallow evaluation, scheduled for 04/24/2022 at 0945. The patient denied additional questions for the clinician following the discussion. The clinician continued to gather information regarding the patient's swallowing function. Per patient, the difficulty began in 2003. The patient denied any medical occurrences or diagnoses that may have correlated with the swallowing difficulty. The patient experiences a globus sensation in the laryngeal region following a swallow of solid consistencies. The patient stated he is often required to expectorate the solid as it does not clear into the esophagus. The patient denied challenges or concerns (including s/s of suspected aspiration with thin liquids or puree). The patient and clinician discussed swallowing strategies including small bites and sips. Assessment Assessment Current Status: Fair Progress Treatment Plan Continue Plan of Care Speech-Plan Treatment Plan Speech Therapy Treatment Plan: Continue Plan of Care Treatment Duration: Apr 22, 2022 Frequency: Modified Program (IRF) Estimated Hrs Per Day: .5 hour per day Rehab Potential: Fair Safety Risks/Education Teaching Recipient: Patient Teaching Methods: Discussion Response to Teaching: Verbalize Understanding Education Topics Provided: Swallowing Strategies, Plan of Care Time Speech Therapy Time In: 09:30 Speech Therapy Time Out: 10:00 Total Billed Time: 30 Billed Treatment Time 1, ISATU JÚNIOR Chan Apr 23, 2022 10:02
--- NOTE | 2022-04-23 12:22 | Progress Note - Surgery ---
Subjective Date Seen by a Provider: Apr 23, 2022 Time Seen by a Provider: 12:22 Subjective/Events-last exam Patient tolerating dressing changes. Pain controlled. No new complaints. Denies n/v fever sweats chills shortness of breath or chest pain. Objective Exam Vital Signs Date Time Temp Pulse Resp B/P (MAP) Pulse Ox O2 Delivery O2 Flow Rate FiO2 04/23/22 09:27 Room Air 04/23/22 07:31 36.8 86 14 116/60 (78) 97 Room Air 04/22/22 21:00 96 Room Air 04/22/22 20:55 37.1 92 16 101/60 (74) 96 Room Air Capillary Refill : General Appearance: No Apparent Distress, WD/WN, Chronically ill, Thin HEENT: PERRL/EOMI, Normal ENT Inspection, Pharynx Normal Neck: Normal Inspection, Non Tender, Supple Respiratory: Chest Non Tender, No Accessory Muscle Use, No Respiratory Distress Cardiovascular: Regular Rate, Rhythm, No JVD Gastrointestinal: non tender, soft Extremity: Normal Capillary Refill, Other (Bilateral lower amputations, dressing clean and intact hypergranulation tissue coming in.) Neurologic/Psychiatric: Alert, Oriented x3, No Motor/Sensory Deficits, Normal Mood/Affect, order make up clerk II-XII Norm as Tested, Abnormal Gait (Can ambulate), Motor Weakness (Lower extremities) Skin: Normal Color, Warm/Dry Lymphatic: No Adenopathy Assessment/Plan Assessment/Plan Assessment/Plan S/P B/L BKA wound care pain control PT/OT will follow periodically, if needed please call CHASE GONZALEZ DO Apr 23, 2022 12:22
[2022-04-23] MEDS: HYDROmorphone 2 MG/ML VIAL (DILAUDID) IV PRN (14:39)
[2022-04-23 19:39] VITALS: BP 120/57
--- NOTE | 2022-04-24 06:11 | PM&R Progress Note ---
Subjective HPI/CC On Admission Date Seen by Provider: Apr 24, 2022 Time Seen by Provider: 10:00 Subjective/Events-last exam 04/24/2022: Pt is doing about the same Bowels are moving Emeli will be changing the dressing every other day and the rehab nurses will do that every other 04/23/2022: Patient doing about the same Wound care change requires Dilaudid prior to Dysphagia continues Bowels are moving 04/22/2022: Patient doing well Receiving Dilaudid 1 hour before dressing changes Overall doing pretty well Working on swallowing with barium swallow 04/21/2022: Patient doing pretty well Bowels moved yesterday Decreasing Dilaudid use Nystatin powder helpful Review of Systems General: Fatigue, Malaise Objective Exam Vital Signs Vital Signs Date Time Temp Pulse Resp B/P (MAP) Pulse Ox O2 Delivery O2 Flow Rate FiO2 04/24/22 19:59 36.5 89 18 118/58 (78) 95 Room Air Capillary Refill : General Appearance: No Apparent Distress, WD/WN, Chronically ill, Thin HEENT: PERRL/EOMI, Normal ENT Inspection, Pharynx Normal Neck: Normal Inspection, Non Tender, Supple Respiratory: Chest Non Tender, No Accessory Muscle Use, No Respiratory Distress Cardiovascular: Regular Rate, Rhythm, No JVD Gastrointestinal: Normal Bowel Sounds, No Organomegaly, No Pulsatile Mass, Non Tender, Soft Back: Normal Inspection, No CVA Tenderness, No Vertebral Tenderness Extremity: Normal Capillary Refill, Other (Bilateral lower amputations, dressing clean and intact) Neurologic/Psychiatric: Alert, Oriented x3, No Motor/Sensory Deficits, Normal Mood/Affect, 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 FIM Transfers Therapy Code Descriptions/Definitions Functional [place] Measure: 0=Not Assessed/NA 4=Minimal Assistance 1=Total Assistance 5=Supervision or Setup 2=Maximal Assistance 6=Modified [place] 3=Moderate Assistance 7=Complete IndependenceSCALE: Activities may be completed with or without assistive devices. 4-Nnfwzthjxy-hmzseyv completes the activity by him/herself with no assistance from a helper. 5-Set-up or Clean-up Assistance-helper sets up or cleans up; patient completes activity. [place] assists only prior to or following the activity. 4-Supervision or Touching Assistance-helper provides verbal cues and/or touching/steadying and/or contact guard assistance as patient completes activity. Assistance may be provided throughout the activity or intermittently. 3-Partial/Moderate Assistance-helper does LESS THAN HALF the effort. [place] lifts, holds or supports trunk or limbs, but provides less than half the effort. 2-Substantial/Maximal Assistance-helper does MORE THAN HALF the effort. [place] lifts or holds trunk or limbs and provides more than half the effort. 0-Uyxeltejn-koscme does ALL the effort. Patient does none of the effort to complete the activity. Or, the assistance of 2 or more helpers is required for the patient to complete the activity. If activity was not attempted, code reason: 7-Patient Refused. 9-Not Applicable-not attempted and the patient did not perform the activity before the current illness, exacerbation or injury. 10-Not Attempted due to Environmental Limitations-(lack of equipment, weather restraints, etc.). 88-Not Attempted due to Medical Conditions or Safety Concerns. Roll Left to Right (QC): 6 Sit to Lying (QC): 6 Sit to Stand (QC): 88 Chair/Xkx-oe-Dgubw Xfer(QC): 3 Car Transfer (QC): 88 Gait Training Does the Patient Walk?: No and Walking Goal NOT indicated Walk 10 feet (QC): 9 Walk 50 ft with 2 Turns(QC): 9 Walk 150 ft (QC): 9 Walking 10ft/uneven surface-QC: 9 Wheelchair Training Does the Pt Use a Wheelchair?: Yes Wheel 50 ft with 2 turns (QC): 6 Wheel 150 ft (QC): 6 Type of Wheelchair: Manual Stair Training 1 Step (curb) (QC): 9 4 Steps (QC): 9 12 Steps (QC): 9 Balance Picking up an Object (QC): 9 ADL-Treatment Eating (QC): 6 Oral Hygiene (QC): 9 Shower/Bathe Self (QC): 5 (sponge bath at bed level) Upper Body Dressing (QC): 5 (Per clinical judgment, pt would be able to c omplete after set up assistance.) Lower Body Dressing (QC): 5 (Bedside setup) On/Off Footwear (QC): 88 Toileting Hygiene (QC): 5 (set up with urinal at bed level.) Assessment/Plan Assessment and Plan Assess & Plan/Chief Complaint Assessment: Bilateral BKA's Severe PAD Smoker Severe pain post op Plan: Pain control Monitor labs 04/21/2022: Pain control Monitor bm 04/22/2022: Swallow eval 04/23/2022: Monitor closely Swallow eval 04/24/2022: Complete abx Dressing change (1) S/P bilateral below knee amputation ATIF LIND DO Apr 24, 2022 06:11
[2022-04-24 07:35] VITALS: BP 116/59
[2022-04-24] MEDS: AUGMENTIN 875 MG TAB (AMOXICILLIN/CLAVULANATE) PO SCH ×2 (08:26→17:48)
[2022-04-24] MEDS: APIXABAN 5 MG (ELIQUIS) TABLET PO SCH ×2 (08:26→20:40)
--- NOTE | 2022-04-24 08:46 | ST Mod Barium Swallow ---
Speech Evaluation-General Medical Diagnosis s/p B BKA Onset Date: Apr 17, 2022 Therapy Diagnosis Therapy Diagnosis: Oropharyngeal Dysphagia Precautions Precautions: Fall, Aspiration Precautions/Isolations: Aspiration, Fall Prevention Referral Referring Physician: Dr. Cordova Reason for Referral: Evaluation/Treatment Medical History Pertinent Medical History: COPD, PVD Current History The patient is a 41 year-old male with past medical history of severe peripheral artery disease who presents to ARU following a bilateral lower extremity amputation by Dr. Fernandez. Reviewed History: Yes Social History Current Living Status: Significant Other Speech Mod Barium Swallow Prior Level of Function The patient stated he has experienced a globus sensation which he localizes to the laryngeal region since approximately 2003. The patient stated he is unable to consume dry solids or many meat products due to the globus sensation and he often expectorates the consistency following attempts. The patient denied concerns regarding thin liquids or s/s of suspected aspiration with thin liquid consistencies. The patient stated he currently consumes a soft diet with thin liquids and crushes his medication. The patient denies a recent or recurrent diagnosis of pneumonia. Due to the persistent globus sensation, a modified barium swallow has been recommended to assess for the presence of aspiration with PO intake. Oral Motor Skills Dentition Comments: Edentulous, no dentures. Lingual Protrusion: Normal Lingual ROM: Normal Lingual Strength: Normal Velum: Normal Volitional Dry Swallow: Yes Voluntary Cough: Yes Can Clear Throat Volitionally: Yes Textures-Lateral View Lateral View Food Presentation: Thin Liquid via Straw, Pureed Solids Oral Phase Labial Closure: No Impairment (WFL) Bolus Formation Pooling L/R: Mild Impairment (Mild to moderate impairment.) Bolus Formation Placement: No Impairment (WFL) The patient politely deferred solid consistencies due to edentulous state. A/P Lingual Propulsion: Mild Impairment Lingual Movement: Mild Impairment Oral Phase Residue: Mild Impairment (Mild to moderate with pureed consistencies, requiring a thin liquid wash to clear.) The patient demonstrated a mild to moderate oral phase impairment. The patient was able to appropriately draw material from the teaspoon and straw, however, struggled to form a cohesive bolus on or underneath the lingual surface. Premature spillage was present with thin liquid consistencies to the level of the pyriform sinuses prior to pharyngeal swallow initiation (intermittently). The patient displayed reduced lingual coordination with posterior movement of the puree bolus, displaying prolonged transfer time. Pharyngeal Phase Swallow Response: No Impairment (WFL) Base of Tongue: No Impairment (WFL) Epiglottic Movement: Mild Impairment Laryngeal Elevation: No Impairment (WFL) Vallecular Residue: Mild Pharyngeal Wall Residue: Mild Piriform Sinus Residue: Mild Laryngeal Penetration: Mild Aspiration Observations: None The patient demonstrated a mild impairment to the pharyngeal phase of the swallow function. A timely pharyngeal swallow was triggered as the head of the bolus passed the ramus of the mandible. Adequate and appropriate laryngeal elevation and hyo-laryngeal excursion were visualized. Timely epiglottic inversion was present, however, intermittently incomplete as the epiglottis was mildly impeded by the posterior pharyngeal wall. No aspiration occurred with any consistency tested. Trace, transient laryngeal penetration occurred with thin liquids during the swallow on one occasion. Complete base of tongue retraction and pharyngeal contraction were present. Minimal to mild coating of residual material was present in the valleculae, the posterior pharyngeal wall, and the pyriform sinuses. Narrowing was noted at the region of the cricopharyngeus, correlating to the esophageal area near cervical vertebrae five. The narrowing does obstruct bolus flow at this region, however, complete clearance is achieved. Summary/Impressions The patient demonstrated mild oropharyngeal dysphagia characterized by reduced lingual coordination and a narrowing identified near the cricopharyngeal region (proximal esophagus). No aspiration occurred with any consistency tested. Trace, transient laryngeal penetration occurred with thin liquids during the swallow on one occasion. The narrowing noted previously does obstruct bolus flow at the r egion, however, complete clearance is achieved. Recommendations: - Dysphagia two consistency diet with thin liquids, as tolerated. - Fully upright and alert for PO intake. - Small, single bites and sips. - Alternate bites and sips on a 1:1 ratio, - Crush medication and place in puree for administration. - Consider referral to GI for additional investigation and study of the narr owing identified near the proximal esophageal region. The results and recommendations were provided to the patient immediately following the evaluation. The RN and clinician discussed the results following the patient's return to the floor. Speech Short Term Goals Short Term Goals Short Term Goals 1. The patient will demonstrate swallowing strategies with 90% accuracy, independently. Time Frame-STG: Five Days. Speech Usp Goals Carton Filling Machine Operator Goals 1. The patient will tolerate the least restrictive diet consistency without s/s of suspected aspiration. Time Frame: Two Weeks. Speech-Plan Treatment Plan Speech Therapy Treatment Plan: Continue Plan of Care Treatment Duration: May 06, 2022 Frequency: 3 times per week (Three to five times per week.) Estimated Hrs Per Day: .5 hour per day Rehab Potential: Good Safety Risks/Education Teaching Recipient: Patient Teaching Methods: Discussion, Audiovisual Response to Teaching: Verbalize Understanding Education Topics Provided: Results, Recommendations, Video of MBS, Swallowing Strategies Time Speech Therapy Time In: 09:45 Speech Therapy Time Out: 10:15 Total Billed Time: 30 Billed Treatment Time 1, MOD, DYST No JÚNIOR DENISE Apr 24, 2022 08:46
--- NOTE | 2022-04-24 09:00 | Physical Therapy Daily Note ---
PT Daily Note-Current Subjective Pt. in bed with lap top and breakfast tray in front. Pt. c/o pain in LLE residual limb "that nerve" at 01/03. Pt. attempts to explain his prior level of function and home situation but vacillates between being completely indep on feet to TRFing into w/c with UEs only, also states he has not slept laying down for years, states he sleep in his w/c. Pain Numeric Pain Scale: 3 Location: Left Location Body Site: Calf (incision site) Pain Description: Throbbing Mental Status Patient Orientation: Person, Place Attachments: Other-See Comments (bilat residual limb orly wraps) Transfers SCALE: Activities may be completed with or without assistive devices. 6-Xqewwumdlc-xltmirr completes the activity by him/herself with no assistance from a helper. 5-Set-up or Clean-up Assistance-helper sets up or cleans up; patient completes activity. [place] assists only prior to or following the activity. 4-Supervision or Touching Assistance-helper provides verbal cues and/or touching/steadying and/or contact guard assistance as patient completes activity. Assistance may be provided throughout the activity or intermittently. 3-Partial/Moderate Assistance-helper does LESS THAN HALF the effort. [place] lifts, holds or supports trunk or limbs, but provides less than half the effort. 2-Substantial/Maximal Assistance-helper does MORE THAN HALF the effort. [place] lifts or holds trunk or limbs and provides more than half the effort. 9-Enpgwnpco-vvscju does ALL the effort. Patient does none of the effort to com plete the activity. Or, the assistance of 2 or more helpers is required for the patient to complete the activity. If activity was not attempted, code reason: 7-Patient Refused. 9-Not Applicable-not attempted and the patient did not perform the activity before the current illness, exacerbation or injury. 10-Not Attempted due to Environmental Limitations-(lack of equipment, weather restraints, etc.). 88-Not Attempted due to Medical Conditions or Safety Concerns. Roll Left & Right (QC): 6 Sit to Lying (QC): 6 Lying to Sitting/Side of Bed(Q: 6 Chair/Unc-mk-Vwxhw Xfer(QC): 4 uses HOB up to get to sitting, scoots on his bottom in bed indep, needs min assist to place slide brd ,but of most interest in pt. needs step by step instruction during the process to perform it but does it quite well Weight Bearing Non Weight Bearing Non Weight Bearing Wheelchair Training Does the Pt Use a Wheelchair?: Yes Wheel 50 ft with 2 turns (QC): 6 Wheel 150 ft (QC): 6 Type of Wheelchair: Manual 800ft, turns, brakes , backing parallel parking etc with good control Exercises Supine Ex: Quad Set, Rolling, Glut sets, Knee to chest, Scooting, Straight leg raise, Hip abd/add (side lying) Supine Reps: 15 side lying hip ext 15reps Treatments pt. difficult to motivate to begin his Rx, explained the time frame and pt. was slowly cooperative, bed Ex as above, TRFs in out bed with sld brd min asst to place brd as well as instruction for safe position of w/c , w/c mob, arm chair push ups as well as instruction and education in elevating and distal limbs while up in w/c etc Assessment Current Status: Good Progress needs explanation and guidance each step PT Short Term Goals Short Term Goals Time Frame: May 04, 2022 Roll Left & Right: 6 Sit to lyin Lying to sitting on side of be: 6 Sit to stand: 6 Chair/kbn-uh-gbcnf transfer: 4 Toilet transfer: 4 Car transfer: 4 Wheel 50ft w/2 turns: 6 Wheel 150 feet: 6 Type: Manual PT Surgery Scheduler Goals Chcf Goals PT Chcf Goals Time Frame: May 11, 2022 Roll Left & Right (QC): 6 Sit to Lying (QC): 6 Lying-Sitting on Side/Bed(QC): 6 Sit to Stand (QC): 9 Chair/Umo-ej-Rohqt Xfer(QC): 6 Toilet Transfer (QC): 6 Car Transfer (QC): 6 Does the Patient Walk: No and Walking Goal NOT indicated Walk 10 feet (QC): 9 Walk 50ft with 2 Turns (QC): 9 Walk 150 ft (QC): 9 Walking 10ft on Uneven Surface: 9 1 Step (curb) (QC): 9 4 Steps (QC): 9 12 Steps (QC): 9 Picking up an Object (QC): 9 Does the Pt use WC or Scooter?: Yes Wheel 50 feet with 2 turns (QC: 6 Type: Manual Wheel 150 feet: 6 Type: Manual PT Plan Treatment/Plan Treatment Plan: Continue Plan of Care Treatment Plan: Bed Mobility, Education, Functional Activity Bronson, Functional Strength, Group Therapy, Safety, Therapeutic Exercise, Transfers Treatment Duration: May 11, 2022 Frequency: At least 5 of 7 days/Wk (IRF) Estimated Hrs Per Day: 1.5 hours per day Patient and/or Family Agrees t: Yes Safety Risks/Education Patient Education: Transfer Techniques, Reviewed Precautions, Correct Positioning, W/C Management, Disease Process, Safety Issues Teaching Recipient: Patient Teaching Methods: Demonstration, Discussion Response to Teaching: Verbalize Understanding, Return Demonstration, Reinforcement Needed Time/GCodes Time In: 800 Time Out: 900 Total Billed Treatment Time: 60 Total Billed Treatment 1,WC20m,FA25m,EX15m JEANE EDDY INJECTION MOLDING OPERATOR Apr 24, 2022 09:00
[2022-04-24] MEDS: DOCUSATE SODIUM 100 MG (COLACE) CAP PO SCH ×2 (09:31→20:01)
[2022-04-24] MEDS: polyethylene glycoL POWDER 17 GM (MIRALAX) PACK PO SCH ×2 (09:31→20:01)
[2022-04-24] MEDS: SENNA W/DOCUSATE (SENOKOT S) TABLET PO SCH ×2 (09:32→20:01)
--- NOTE | 2022-04-24 11:33 | Occupational Ther Daily Note ---
OT Current Status-Daily Note Subjective Pt returning from modified barium scope upon OT arrival. Pt agreeable to OT tx, but declines ADLs d/t BLE pain, requesting to do arm exercises. Mental Status/Objective Patient Orientation: Person, Place ADL-Treatment Therapy Code Descriptions/Definitions Functional [place] Measure: 0=Not Assessed/NA 4=Minimal Assistance 1=Total Assistance 5=Supervision or Setup 2=Maximal Assistance 6=Modified [place] 3=Moderate Assistance 7=Complete IndependenceSCALE: Activities may be completed with or without assistive devices. 3-Lqzccvoxob-rwwjjgg completes the activity by him/herself with no assistance from a helper. 5-Set-up or Clean-up Assistance-helper sets up or cleans up; patient completes activity. [place] assists only prior to or following the activity. 4-Supervision or Touching Assistance-helper provides verbal cues and/or touching/steadying and/or contact guard assistance as patient completes activity. Assistance may be provided throughout the activity or intermittently. 3-Partial/Moderate Assistance-helper does LESS THAN HALF the effort. [place] lifts, holds or supports trunk or limbs, but provides less than half the effort. 2-Substantial/Maximal Assistance-helper does MORE THAN HALF the effort. [place] lifts or holds trunk or limbs and provides more than half the effort. 7-Nlieezenx-pybpxp does ALL the effort. Patient does none of the effort to complete the activity. Or, the assistance of 2 or more helpers is required for the patient to complete the activity. If activity was not attempted, code reason: 7-Patient Refused. 9-Not Applicable-not attempted and the patient did not perform the activity before the current illness, exacerbation or injury. 10-Not Attempted due to Environmental Limitations-(lack of equipment, weather restraints, etc.). 88-Not Attempted due to Medical Conditions or Safety Concerns. Toileting Hygiene (QC): 5 (with urinal at bed level) Toilet Transfer (QC): 3 (Min A with sliding board transfer to drop arm BS. V/c's for sequencing) Other Treatment Pt wheeled to therapy gym to participate in arm exercises to increase BUE and core strength and endurance. OT cont education on importance of increasing BUE strength for functional transfers, pt verbalized understanding and agreed. Pt completed 13min seated on arm bike (50 hayes of resistance), intermittently changing pedal speeds and taking RBs PRN. Afterwards, he completed chest squeezes with red ball 2x15, chest presses with blue Theraband (heavy resistance) 2x15, pull backs with blue Theraband (heavy resistance) 2x15, and arm circles with 2lb dumbbells 2x1min rounds. He took RBs between eat set of exercises. Pt wheeled back to room to practice sliding board transfers to drop arm BSC. He required v/c's for w/c placement and sequencing, Min A for actual transfer to BSC and back to w/c (assist placing and removing SB). Pt used sliding board to transfer from w/c to bed, CGA (pt able to place/remove SB). Post tx, pt left in bed with call light in reach and all needs met. Education OT Patient Education: Correct positioning, Energy conservation, Exercise program, Modified ADL techniques, Progress toward Goal/Update tx plan, Purpose of tx/functional activities, Rehab process, Transfer techniques Teaching Recipient: Patient Teaching Methods: Demonstration, Discussion Response to Teaching: Verbalize Understanding, Return Demonstration OT Intermediate Goals Intermediate Goals Time Frame: May 10, 2022 Eating (QC): 6 Oral Hygiene (QC): 9 Toileting Hygiene (QC): 6 Shower/Bathe Self (QC): 6 (sponge bath) Upper Body Dressing (QC): 6 Lower Body Dressing (QC): 6 On/Off Footwear (QC): 88 Additional Goals: 1-Demonstrate ADL Tasks, 2-Verbalize Understanding, 3- ImproveStrength/[place]onson 1=Demonstrate adherence to instructed precautions during ADL tasks. 2=Patient will verbalize/demonstrate understanding of assistive devices/modifications for ADL. 3=Patient will improve strength/tolerance for activity to enable patient to perform ADL's. OT Education/Plan Problem List/Assessment Assessment: Decreased Activ Tolerance, Decreased UE Strength, Impaired I ADL's, Impaired Self-Care Skills Discharge Recommendations Plan/Recommendations: Continue POC Treatment Plan/Plan of Care Patient would benefit from OT for education, treatment and training to promote independence in ADL's, mobility, safety and/or upper extremity function for ADL's. Plan of Care: ADL Retraining, Functional Mobility, Group Exercise/Act as Ind, UE Funct Exercise/Act Treatment Duration: May 10, 2022 Frequency: At least 5 of 7 days/Wk (IRF) Estimated Hrs Per Day: 1.5 hours per day Agreement: Yes Rehab Potential: Good Time/GCodes Start Time: 10:15 Stop Time: 11:30 Total Time Billed (hr/min): 75 Billed Treatment Time 1, Ex 4 (60'), ADL (15') JAMESON LIU OT Apr 24, 2022 11:33
[2022-04-24] MEDS: HYDROmorphone 2 MG/ML VIAL (DILAUDID) IV PRN (11:37)
[2022-04-24] MEDS: MICONAZOLE 2% POWDER (DESENEX AF) 90 GM TOP SCH ×2 (11:37→20:41)
--- NOTE | 2022-04-24 12:01 | Physical Therapy Daily Note ---
PT Daily Note-Current Subjective Pt. on his computer and mostly attempts to ignore this CRIMPER ASSEMBLER but eventually agrees to bed ex to review ex and positioning he can do while he is in bed alone Pain Numeric Pain Scale: 4 Location: Left Location Body Site: Calf Pain Description: Sharp Mental Status Patient Orientation: Normal For Age Transfers SCALE: Activities may be completed with or without assistive devices. 5-Umtcwlhrdq-qeeuuvc completes the activity by him/herself with no assistance from a helper. 5-Set-up or Clean-up Assistance-helper sets up or cleans up; patient completes activity. [place] assists only prior to or following the activity. 4-Supervision or Touching Assistance-helper provides verbal cues and/or touching/steadying and/or contact guard assistance as patient completes act ivity. Assistance may be provided throughout the activity or intermittently. 3-Partial/Moderate Assistance-helper does LESS THAN HALF the effort. [place] lifts, holds or supports trunk or limbs, but provides less than half the effort. 2-Substantial/Maximal Assistance-helper does MORE THAN HALF the effort. [place] lifts or holds trunk or limbs and provides more than half the effort. 2-Dtpjhkmwe-zmnmso does ALL the effort. Patient does none of the effort to complete the activity. Or, the assistance of 2 or more helpers is required for the patient to complete the activity. If activity was not attempted, code reason: 7-Patient Refused. 9-Not Applicable-not attempted and the patient did not perform the activity before the current illness, exacerbation or injury. 10-Not Attempted due to Environmental Limitations-(lack of equipment, weather restraints, etc.). 88-Not Attempted due to Medical Conditions or Safety Concerns. rolls and pulls self up in bed indep Weight Bearing Non Weight Bearing Non Weight Bearing Exercises Supine Ex: Quad Set, Glut sets, Knee to chest Supine Reps: 15 PT Short Term Goals Short Term Goals Time Frame: May 04, 2022 Roll Left & Right: 6 Sit to lyin Lying to sitting on side of be: 6 Sit to stand: 6 Chair/dyj-vj-huydd transfer: 4 Toilet transfer: 4 Car transfer: 4 Wheel 50ft w/2 turns: 6 Wheel 150 feet: 6 Type: Manual PT Mcfp Goals Mcfp Goals PT Mcfp Goals Time Frame: May 11, 2022 Roll Left & Right (QC): 6 Sit to Lying (QC): 6 Lying-Sitting on Side/Bed(QC): 6 Sit to Stand (QC): 9 Chair/Dvc-fn-Kbhuz Xfer(QC): 6 Toilet Transfer (QC): 6 Car Transfer (QC): 6 Does the Patient Walk: No and Walking Goal NOT indicated Walk 10 feet (QC): 9 Walk 50ft with 2 Turns (QC): 9 Walk 150 ft (QC): 9 Walking 10ft on Uneven Surface: 9 1 Step (curb) (QC): 9 4 Steps (QC): 9 12 Steps (QC): 9 Picking up an Object (QC): 9 Does the Pt use WC or Scooter?: Yes Wheel 50 feet with 2 turns (QC: 6 Type: Manual Wheel 150 feet: 6 Type: Manual PT Plan Treatment/Plan Treatment Plan: Continue Plan of Care Treatment Plan: Bed Mobility, Education, Functional Activity Bronson, Functional Strength, Group Therapy, Safety, Therapeutic Exercise, Transfers Treatment Duration: May 11, 2022 Frequency: At least 5 of 7 days/Wk (IRF) Estimated Hrs Per Day: 1.5 hours per day Patient and/or Family Agrees t: Yes Safety Risks/Education Patient Education: Correct Positioning, Disease Process Time/GCodes Time In: 1145 Time Out: 1200 Total Billed Treatment Time: 15 Total Billed Treatment 1,EX15m JEANE EDDY CRIMPER ASSEMBLER Apr 24, 2022 12:01
--- NOTE | 2022-04-24 13:26 | Diagnostic Imaging Report ---
INDICATION: Dysphagia. The procedure was performed in conjunction with speech pathology. Video fluoroscopy was performed during swallowing of barium at multiple consistencies. 118 seconds of fluoroscopic time was utilized. Patient ingested thin liquid by straw as well as pudding consistency. There is normal epiglottic tilt and laryngeal elevation. No penetration or aspiration was observed. IMPRESSION: Unremarkable modified barium swallow. Dictated by: Dictated on workstation # [id number]
[2022-04-24 19:59] VITALS: BP 118/58
--- NOTE | 2022-04-25 06:10 | PM&R Progress Note ---
Subjective HPI/CC On Admission Date Seen by Provider: Apr 25, 2022 Time Seen by Provider: 12:30 Subjective/Events-last exam 04/25/2022: Pt is doing well Dressing changes done by nurse and wound care Dilaudid given before dressing changes 04/24/2022: Pt is doing about the same Bowels are moving Emeli will be changing the dressing every other day and the rehab nurses will do that every other 04/23/2022: Patient doing about the same Wound care change requires Dilaudid prior to Dysphagia continues Bowels are moving 04/22/2022: Patient doing well Receiving Dilaudid 1 hour before dressing changes Overall doing pretty well Working on swallowing with barium swallow 04/21/2022: Patient doing pretty well Bowels moved yesterday Decreasing Dilaudid use Nystatin powder helpful Review of Systems General: Fatigue, Malaise Musculoskeletal: leg pain Objective Exam Vital Signs Vital Signs Date Time Temp Pulse Resp B/P (MAP) Pulse Ox O2 Delivery O2 Flow Rate FiO2 04/25/22 19:36 36.3 91 18 114/55 (74) 95 Room Air Capillary Refill : General Appearance: No Apparent Distress, WD/WN, Chronically ill, Thin HEENT: PERRL/EOMI, Normal ENT Inspection, Pharynx Normal Neck: Normal Inspection, Non Tender, Supple Respiratory: Chest Non Tender, No Accessory Muscle Use, No Respiratory Distress Cardiovascular: Regular Rate, Rhythm, No JVD Gastrointestinal: Normal Bowel Sounds, No Organomegaly, No Pulsatile Mass, Non Tender, Soft Back: Normal Inspection, No CVA Tenderness, No Vertebral Tenderness Extremity: Normal Capillary Refill, Other (Bilateral lower amputations, dressing clean and intact) Neurologic/Psychiatric: Alert, Oriented x3, No Motor/Sensory Deficits, Normal Mood/Affect, tip scourer II-XII Norm as Tested, Abnormal Gait (Can ambulate), Motor Weakness (Lower extremities) Skin: Normal Color, Warm/Dry Lymphatic: No Adenopathy Results/Procedures Lab Patient resulted labs reviewed. FIM Transfers Therapy Code Descriptions/Definitions Functional [place] Measure: 0=Not Assessed/NA 4=Minimal Assistance 1=Total Assistance 5=Supervision or Setup 2=Maximal Assistance 6=Modified [place] 3=Moderate Assistance 7=Complete IndependenceSCALE: Activities may be completed with or without assistive devices. 7-Bbqqikwmbz-eoeevri completes the activity by him/herself with no assistance from a helper. 5-Set-up or Clean-up Assistance-helper sets up or cleans up; patient completes activity. [place] assists only prior to or following the activity. 4-Supervision or Touching Assistance-helper provides verbal cues and/or touching/steadying and/or contact guard assistance as patient completes activity. Assistance may be provided throughout the activity or intermittently. 3-Partial/Moderate Assistance-helper does LESS THAN HALF the effort. [place] lifts, holds or supports trunk or limbs, but provides less than half the effort. 2-Substantial/Maximal Assistance-helper does MORE THAN HALF the effort. [place] lifts or holds trunk or limbs and provides more than half the effort. 2-Szictmswu-smouyx does ALL the effort. Patient does none of the effort to complete the activity. Or, the assistance of 2 or more helpers is required for the patient to complete the activity. If activity was not attempted, code reason: 7-Patient Refused. 9-Not Applicable-not attempted and the patient did not perform the activity before the current illness, exacerbation or injury. 10-Not Attempted due to Environmental Limitations-(lack of equipment, weather restraints, etc.). 88-Not Attempted due to Medical Conditions or Safety Concerns. Roll Left to Right (QC): 6 Sit to Lying (QC): 6 Sit to Stand (QC): 88 Chair/Oan-zm-Ssqji Xfer(QC): 4 Car Transfer (QC): 88 Gait Training Does the Patient Walk?: No and Walking Goal NOT indicated Walk 10 feet (QC): 9 Walk 50 ft with 2 Turns(QC): 9 Walk 150 ft (QC): 9 Walking 10ft/uneven surface-QC: 9 Wheelchair Training Does the Pt Use a Wheelchair?: Yes Wheel 50 ft with 2 turns (QC): 6 Wheel 150 ft (QC): 6 Type of Wheelchair: Manual Stair Training 1 Step (curb) (QC): 9 4 Steps (QC): 9 12 Steps (QC): 9 Balance Picking up an Object (QC): 9 ADL-Treatment Eating (QC): 6 Oral Hygiene (QC): 9 Shower/Bathe Self (QC): 5 (sponge bath at bed level) Upper Body Dressing (QC): 5 (Per clinical judgment, pt would be able to complete after set up assistance.) Lower Body Dressing (QC): 5 (Bedside setup) On/Off Footwear (QC): 88 Toileting Hygiene (QC): 5 (with urinal at bed level) Toilet Transfer (QC): 3 (Min A with sliding board transfer to drop arm [facility]. V/c's for sequencing) Assessment/Plan Assessment and Plan Assess & Plan/Chief Complaint Assessment: Bilateral BKA's Severe PAD Smoker Severe pain post op Plan: Pain control Monitor labs 04/21/2022: Pain control Monitor bm 04/22/2022: Swallow eval 04/23/2022: Monitor closely Swallow eval 04/24/2022: Complete abx Dressing change 04/25/2022: Monitor closely Supportive care (1) S/P bilateral below knee amputation ATIF LIND DO Apr 25, 2022 06:09
[2022-04-25 07:22] VITALS: BP 117/56
[2022-04-25] MEDS: APIXABAN 5 MG (ELIQUIS) TABLET PO SCH (08:48)
[2022-04-25] MEDS: DOCUSATE SODIUM 100 MG (COLACE) CAP PO SCH ×2 (08:52→21:32)
[2022-04-25] MEDS: polyethylene glycoL POWDER 17 GM (MIRALAX) PACK PO SCH ×2 (08:52→21:33)
[2022-04-25] MEDS: SENNA W/DOCUSATE (SENOKOT S) TABLET PO SCH ×2 (08:53→21:33)
[2022-04-25] MEDS: MICONAZOLE 2% POWDER (DESENEX AF) 90 GM TOP SCH ×2 (08:54→21:33)
--- NOTE | 2022-04-25 08:58 | Physical Therapy Daily Note ---
PT Daily Note-Current Subjective Pt. in bed, agrees to Rx and requests to geto on BSC for BM. "Im a little nervous about this, I usually go in a public bathroom and i cant imagine how this is going to go " This SUPERVISOR [employer] SUGAR encouraged pt. that it would go well and explained the sequence but it was apparent the pt. could not picture this and needed step by step instruction during the actual task. No c/o pain today. pt. states he ahs learned how to slowly move and protect himself from "stirring up" the pain. Pt. shares that he and his are pursuing an apartment where there are no steps for him to negotiate Pain Location: No Pain Reported Mental Status Patient Orientation: Person, Place, Situation Attachments: Other-See Comments (orly wraps bilat residual limbs) Transfers SCALE: Activities may be completed with or without assistive devices. 7-Lmmhttpmzy-brciper completes the activity by him/herself with no assistance from a helper. 5-Set-up or Clean-up Assistance-helper sets up or cleans up; patient completes activity. [place] assists only prior to or following the activity. 4-Supervision or Touching Assistance-helper provides verbal cues and/or touching/steadying and/or contact guard assistance as patient completes activ ity. Assistance may be provided throughout the activity or intermittently. 3-Partial/Moderate Assistance-helper does LESS THAN HALF the effort. [place] lifts, holds or supports trunk or limbs, but provides less than half the effort. 2-Substantial/Maximal Assistance-helper does MORE THAN HALF the effort. [place] lifts or holds trunk or limbs and provides more than half the effort. 2-Hfexhnidx-dhvdxx does ALL the effort. Patient does none of the effort to complete the activity. Or, the assistance of 2 or more helpers is required for the patient to complete the activity. If activity was not attempted, code reason: 7-Patient Refused. 9-Not Applicable-not attempted and the patient did not perform the activity before the current illness, exacerbation or injury. 10-Not Attempted due to Environmental Limitations-(lack of equipment, weather restraints, etc.). 88-Not Attempted due to Medical Conditions or Safety Concerns. Roll Left & Right (QC): 6 Sit to Lying (QC): 6 Lying to Sitting/Side of Bed(Q: 6 Chair/Pwj-ns-Ojcxd Xfer(QC): 4 Toilet Transfer (QC): 4 pt. required min assist to place board to and again from drop arm BSC. Pt. slid SBA bed to toilet, then needed SBA and instruction only to pull brd out and wt shift to push pants down etc, pt. used urinal while sitting on BSC as he could not manage to get his penis in the commode. this was successful. Pt. had large loose BM , cleaned himself completely with warm wipes, pulled pants back up wt shifting left and right then needed min asst to place sld brd again, pt. needs reminders to hold down brd on end he is approaching so it does not slide with him,pt. successfully TRFd back to bed, later in Rx pt. used sld brd again to TRF bed to w/c with drop arm and needed min asst for placing brd, pt pulled brd out himself Weight Bearing Non Weight Bearing Non Weight Bearing Wheelchair Training Does the Pt Use a Wheelchair?: Yes Type of Wheelchair: Manual 15 ft about his room in tight area with good control Exercises Supine Ex: Quad Set, Rolling, Glut sets, Heel Slides, Scooting, Straight leg raise, Hip abd/add (side and sup) Supine Reps: 20 Treatments sup and sidelying LE ex, TRFs bed to BSC, cleansing and LE clothing mgmt, TRFs bed to w/c, w/c mob Assessment Current Status: Good Progress PT Short Term Goals Short Term Goals Time Frame: May 04, 2022 Roll Left & Right: 6 Sit to lyin Lying to sitting on side of be: 6 Sit to stand: 6 Chair/vaf-um-afyjr transfer: 4 Toilet transfer: 4 Car transfer: 4 Wheel 50ft w/2 turns: 6 Wheel 150 feet: 6 Type: Manual PT Snf Goals Mailing Machine Helper Goals PT Snf Goals Time Frame: May 11, 2022 Roll Left & Right (QC): 6 Sit to Lying (QC): 6 Lying-Sitting on Side/Bed(QC): 6 Sit to Stand (QC): 9 Chair/Lou-ld-Kkviy Xfer(QC): 6 Toilet Transfer (QC): 6 Car Transfer (QC): 6 Does the Patient Walk: No and Walking Goal NOT indicated Walk 10 feet (QC): 9 Walk 50ft with 2 Turns (QC): 9 Walk 150 ft (QC): 9 Walking 10ft on Uneven Surface: 9 1 Step (curb) (QC): 9 4 Steps (QC): 9 12 Steps (QC): 9 Picking up an Object (QC): 9 Does the Pt use WC or Scooter?: Yes Wheel 50 feet with 2 turns (QC: 6 Type: Manual Wheel 150 feet: 6 Type: Manual PT Plan Treatment/Plan Treatment Plan: Continue Plan of Care Treatment Plan: Bed Mobility, Education, Functional Activity [place], Functional Strength, Group Therapy, Safety, Therapeutic Exercise, Transfers Treatment Duration: May 11, 2022 Frequency: At least 5 of 7 days/Wk (IRF) Estimated Hrs Per Day: 1.5 hours per day Patient and/or Family Agrees t: Yes Safety Risks/Education Patient Education: Transfer Techniques, Correct Positioning, W/C Management, Safety Issues Teaching Recipient: Patient Teaching Methods: Demonstration, Discussion Response to Teaching: Verbalize Understanding, Return Demonstration, Reinforcement Needed Time/GCodes Time In: 745 Time Out: 900 Total Billed Treatment Time: 75 Total Billed Treatment ,EX30m,FA45m, JEANE EDDY SUPERVISOR P[employer] SUGAR Apr 25, 2022 08:58
--- NOTE | 2022-04-25 10:19 | Speech Therapy Daily Note ---
Speech Daily Progress Note Subjective Date Seen by Provider: Apr 25, 2022 Time Seen by Provider: 09:45 The patient was seated upright in bed, awake and alert upon entrance to his room by the clinician. The patient greeted the clinician appropriately and was agreeable to participation in the dysphagia treatment session. Objective The patient and clinician reviewed the patient's video swallow from the day earlier with the video recording. The patient's swallowing strategies and recommendations were discussed extensively. All questions from the patient were answered within the clinician's scope of practice. The patient requested a copy of his video swallow and the clinician directed him to medical records for access. The patient will be discharged from skilled services at this time. Assessment Assessment Current Status: Good Progress Treatment Plan Continue Plan of Care Speech Short Term Goals Short Term Goals Short Term Goals 1. The patient will demonstrate swallowing strategies with 90% accuracy, independently. Time Frame-STG: Five Days. Speech Communications Associate Goals Long-Term Goals 1. The patient will tolerate the least restrictive diet consistency without s/s of suspected aspiration. Time Frame: Two Weeks. Speech-Plan Treatment Plan Speech Therapy Treatment Plan: Discontinue ST Treatment Duration: May 06, 2022 Frequency: 3 times per week (Three to five times per week.) Estimated Hrs Per Day: .5 hour per day Rehab Potential: Good Safety Risks/Education Teaching Recipient: Patient Teaching Methods: Discussion, Audiovisual Response to Teaching: Verbalize Understanding Education Topics Provided: Results, Recommendations. Time Speech Therapy Time In: 09:45 Speech Therapy Time Out: 10:15 Total Billed Time: 30 Billed Treatment Time 1, JÚNIOR Núñez Apr 25, 2022 10:19
--- NOTE | 2022-04-25 10:21 | Therapy Team Discharge Summary ---
Therapy Discharge Summary Discharge Recommendations Date of Discharge Physical Therapy Roll Left to Right (QC): 6 Sit to Lying (QC): 6 Lying to Sitting/Side of Bed(Q: 6 Sit to Stand (QC): 88 Chair/Bsw-de-Dhrsl Xfer(QC): 4 Toilet Transfer (QC): 4 Car Transfer (QC): 88 Does the Patient Walk: No and Walking Goal NOT indicated Walk 10 feet (QC): 9 Walk 50 ft with 2 Turns(QC): 9 Walk 150 ft (QC): 9 Walking 10ft on uneven surface: 9 Does the Pt Use a Wheelchair: Yes Wheel 50 ft with 2 turns (QC): 6 Wheel 150 ft (QC): 6 Type of Wheelchair: Manual 1 Step (curb) (QC): 9 4 Steps (QC): 9 12 Steps (QC): 9 Balance Sitting Static: Fair Balance Sitting Dynamic: Fair Picking up an Object (QC): 9 Occupational Therapy Decreased Activ Tolerance, Decreased UE Strength, Impaired I ADL's, Impaired Self-Care Skills Eating (QC): 6 Oral Hygiene (QC): 9 Shower/Bathe Self (QC): 5 (sponge bath at bed level) Upper Body Dressing (QC): 5 (Per clinical judgment, pt would be able to complete after set up assistance.) Lower Body Dressing (QC): 5 (Bedside setup) On/Off Footwear (QC): 88 Toileting Hygiene (QC): 5 (with urinal at bed level) Speech-Language Pathology The patient completed a video swallow with recommendations of a dysphagia two consistency with thin liquids. No aspiration was visualized. As a narrowing was present at the proximal esophagus, the clinician will provide a recommendation for consideration of a referral to GI services. The patient will be discharged from skilled services at this time. PT Crt Goals Prison Goals PT Crt Goals Time Frame: May 11, 2022 Roll Left to Right (QC): 6 Sit to Lying (QC): 6 Lying-Sitting on Side/Bed(QC): 6 Sit to Stand (QC): 9 Chair/Qfq-dq-Llniu Xfer(QC): 6 Car Transfer (QC): 6 Does the Patient Walk: No and Walking Goal NOT indicated Walk 10 feet (QC): 9 Walk 10ft-Uneven Surface(QC): 9 Walk 50ft with 2 Turns (QC): 9 Walk 150 ft (QC): 9 Does the Pt use WC or Scooter?: Yes Wheel 50 feet with 2 turns (QC: 6 1 Step (curb) (QC): 9 4 Steps (QC): 9 12 Steps (QC): 9 Picking up an Object (QC): 9 OT Prison Goals Prison Goals Time Frame: May 10, 2022 Eating (QC): 6 Oral Hygiene (QC): 9 Shower/Bathe Self (QC): 6 (sponge bath) Upper Body Dressing (QC): 6 Lower Body Dressing (QC): 6 On/Off Footwear (QC): 88 Toileting Hygiene (QC): 6 Toilet/Commode Transfer (QC): 6 Additional Goals: 1-Demonstrate ADL Tasks, 2-Verbalize Understanding, 3- ImproveStrength/[place] 1=Demonstrate adherence to instructed precautions during ADL tasks. 2=Patient will verbalize/demonstrate understanding of assistive devices/modifica tions for ADL. 3=Patient will improve strength/tolerance for activity to enable patient to perform ADL's. Speech Crt Goals Prison Goals 1. The patient will tolerate the least restrictive diet consistency without s/s of suspected aspiration. Time Frame: Two Weeks. JÚNIOR DENISE Apr 25, 2022 10:21
--- NOTE | 2022-04-25 10:57 | Occupational Ther Daily Note ---
OT Current Status-Daily Note Subjective Pt sitting in bed making phone call upon OT arrival, agreeable to tx. Pt c/o cramping in the 4th and 5th digits in his R hand during dressing, saying this started "within the last month or so," nurse notified. Mental Status/Objective Patient Orientation: Person, Place, Situation ADL-Treatment Therapy Code Descriptions/Definitions Functional [place] Measure: 0=Not Assessed/NA 4=Minimal Assistance 1=Total Assistance 5=Supervision or Setup 2=Maximal Assistance 6=Modified [place] 3=Moderate Assistance 7=Complete IndependenceSCALE: Activities may be completed with or without assistive devices. 2-Mpjgdtffah-yvvodox completes the activity by him/herself with no assistance from a helper. 5-Set-up or Clean-up Assistance-helper sets up or cleans up; patient completes activity. [place] assists only prior to or following the activity. 4-Supervision or Touching Assistance-helper provides verbal cues and/or touching/steadying and/or contact guard assistance as patient completes activity. Assistance may be provided throughout the activity or intermittently. 3-Partial/Moderate Assistance-helper does LESS THAN HALF the effort. [place] lifts, holds or supports trunk or limbs, but provides less than half the effort. 2-Substantial/Maximal Assistance-helper does MORE THAN HALF the effort. [place] lifts or holds trunk or limbs and provides more than half the effort. 8-Uuicknnde-cimhog does ALL the effort. Patient does none of the effort to complete the activity. Or, the assistance of 2 or more helpers is required for the patient to complete the activity. If activity was not attempted, code reason: 7-Patient Refused. 9-Not Applicable-not attempted and the patient did not perform the activity before the current illness, exacerbation or injury. 10-Not Attempted due to Environmental Limitations-(lack of equipment, weather restraints, etc.). 88-Not Attempted due to Medical Conditions or Safety Concerns. Shower/Bathe Self (QC): 5 (setup at bed level with bed wipes) Upper Body Dressing (QC): 5 (setup at bed level) Lower Body Dressing (QC): 5 (setup at bed level) Toileting Hygiene (QC): 5 (with urinal at bed level) Other Treatment Pt remained in bed to complete bathing and dressing tasks. He transferred from EOB to w/c without sliding board, CGA, and wheeled to therapy gym. Pt does not have SB at home, so he wanted to practice transferring without one. He completed 13min seated on arm bike (50 hayes of resistance) with w/c back lowered to engage core muscles more, taking RBs PRN. Pt wheeled back to room and transferred into bed without SB, CGA. Post tx, pt left in bed with call light in reach and all needs met. Education OT Patient Education: Correct positioning, Energy conservation, Exercise program, Modified ADL techniques, Progress toward Goal/Update tx plan, Purpose of tx/functional activities, Rehab process, Transfer techniques, W/C management Teaching Recipient: Patient Teaching Methods: Discussion Response to Teaching: Verbalize Understanding OT Halfway Goals Halfway Goals Time Frame: May 10, 2022 Eating (QC): 6 Oral Hygiene (QC): 9 Toileting Hygiene (QC): 6 Shower/Bathe Self (QC): 6 (sponge bath) Upper Body Dressing (QC): 6 Lower Body Dressing (QC): 6 On/Off Footwear (QC): 88 Additional Goals: 1-Demonstrate ADL Tasks, 2-Verbalize Understanding, 3-Im proveStrength/[place] 1=Demonstrate adherence to instructed precautions during ADL tasks. 2=Patient will verbalize/demonstrate understanding of assistive devices/modifications for ADL. 3=Patient will improve strength/tolerance for activity to enable patient to perform ADL's. OT Education/Plan Problem List/Assessment Assessment: Decreased Activ Tolerance, Decreased UE Strength, Impaired I ADL's, Impaired Self-Care Skills Discharge Recommendations Plan/Recommendations: Continue POC Treatment Plan/Plan of Care Patient would benefit from OT for education, treatment and training to promote independence in ADL's, mobility, safety and/or upper extremity function for ADL's. Plan of Care: ADL Retraining, Functional Mobility, Group Exercise/Act as Ind, UE Funct Exercise/Act Treatment Duration: May 10, 2022 Frequency: At least 5 of 7 days/Wk (IRF) Estimated Hrs Per Day: 1.5 hours per day Agreement: Yes Rehab Potential: Good Time/GCodes Start Time: 10:15 Stop Time: 11:30 Total Time Billed (hr/min): 75 Billed Treatment Time 1, ADL 4 (60'), Ex (15') JAMESON LIU OT Apr 25, 2022 10:57
[2022-04-25] MEDS: HYDROmorphone 2 MG/ML VIAL (DILAUDID) IV PRN (14:43)
[2022-04-25 19:36] VITALS: BP 114/55
--- NOTE | 2022-04-26 06:12 | PM&R Progress Note ---
Subjective HPI/CC On Admission Date Seen by Provider: Apr 26, 2022 Time Seen by Provider: 11:30 Subjective/Events-last exam 04/26/2022: Pt has no complaints Dilaudid given prior to dressing change No other concerns 04/25/2022: Pt is doing well Dressing changes done by nurse and wound care Dilaudid given before dressing changes 04/24/2022: Pt is doing about the same Bowels are moving [place] will be changing the dressing every other day and the rehab nurses will do that every other 04/23/2022: Patient doing about the same Wound care change requires Dilaudid prior to Dysphagia continues Bowels are moving 04/22/2022: Patient doing well Receiving Dilaudid 1 hour before dressing changes Overall doing pretty well Working on swallowing with barium swallow 04/21/2022: Patient doing pretty well Bowels moved yesterday Decreasing Dilaudid use Nystatin powder helpful Review of Systems General: Fatigue, Malaise Objective Exam Vital Signs Vital Signs Date Time Temp Pulse Resp B/P (MAP) Pulse Ox O2 Delivery O2 Flow Rate FiO2 04/26/22 09:00 Room Air 04/26/22 07:51 36.3 89 18 104/65 (78) 95 Capillary Refill : General Appearance: No Apparent Distress, WD/WN, Chronically ill, Thin HEENT: PERRL/EOMI, Normal ENT Inspection, Pharynx Normal Neck: Normal Inspection, Non Tender, Supple Respiratory: Chest Non Tender, No Accessory Muscle Use, No Respiratory Distress Cardiovascular: Regular Rate, Rhythm, No JVD Gastrointestinal: Normal Bowel Sounds, No Organomegaly, No Pulsatile Mass, Non Tender, Soft Back: Normal Inspection, No CVA Tenderness, No Vertebral Tenderness Extremity: Normal Capillary Refill, Other (Bilateral lower amputations, dressing clean and intact) Neurologic/Psychiatric: Alert, Oriented x3, No Motor/Sensory Deficits, Normal Mood/Affect, dealer compliance representative II-XII Norm as Tested, Abnormal Gait (Can ambulate), Motor Weakness (Lower extremities) Skin: Normal Color, Warm/Dry Lymphatic: No Adenopathy Results/Procedures Lab Patient resulted labs reviewed. FIM Transfers Therapy Code Descriptions/Definitions Functional [place] Measure: 0=Not Assessed/NA 4=Minimal Assistance 1=Total Assistance 5=Supervision or Setup 2=Maximal Assistance 6=Modified [place] 3=Moderate Assistance 7=Complete IndependenceSCALE: Activities may be completed with or without assistive devices. 4-Nxovqyluiz-dpnveju completes the activity by him/herself with no assistance from a helper. 5-Set-up or Clean-up Assistance-helper sets up or cleans up; patient completes activity. [place] assists only prior to or following the activity. 4-Supervision or Touching Assistance-helper provides verbal cues and/or valentin brittaney/steadying and/or contact guard assistance as patient completes activity. Assistance may be provided throughout the activity or intermittently. 3-Partial/Moderate Assistance-helper does LESS THAN HALF the effort. [place] lifts, holds or supports trunk or limbs, but provides less than half the effort. 2-Substantial/Maximal Assistance-helper does MORE THAN HALF the effort. [place] lifts or holds trunk or limbs and provides more than half the effort. 0-Tzmeziqzo-zatjhz does ALL the effort. Patient does none of the effort to complete the activity. Or, the assistance of 2 or more helpers is required for the patient to complete the activity. If activity was not attempted, code reason: 7-Patient Refused. 9-Not Applicable-not attempted and the patient did not perform the activity before the current illness, exacerbation or injury. 10-Not Attempted due to Environmental Limitations-(lack of equipment, weather restraints, etc.). 88-Not Attempted due to Medical Conditions or Safety Concerns. Roll Left to Right (QC): 6 Sit to Lying (QC): 6 Sit to Stand (QC): 88 Chair/Nfl-ho-Cyexr Xfer(QC): 4 Car Transfer (QC): 88 Gait Training Does the Patient Walk?: No and Walking Goal NOT indicated Walk 10 feet (QC): 9 Walk 50 ft with 2 Turns(QC): 9 Walk 150 ft (QC): 9 Walking 10ft/uneven surface-QC: 9 Wheelchair Training Does the Pt Use a Wheelchair?: Yes Wheel 50 ft with 2 turns (QC): 6 Wheel 150 ft (QC): 6 Type of Wheelchair: Manual Stair Training 1 Step (curb) (QC): 9 4 Steps (QC): 9 12 Steps (QC): 9 Balance Picking up an Object (QC): 9 ADL-Treatment Eating (QC): 6 Oral Hygiene (QC): 9 Shower/Bathe Self (QC): 5 (setup at bed level with bed wipes) Upper Body Dressing (QC): 5 (setup at bed level) Lower Body Dressing (QC): 5 (setup at bed level) On/Off Footwear (QC): 88 Toileting Hygiene (QC): 5 (with urinal at bed level) Toilet Transfer (QC): 3 (Min A with sliding board transfer to drop arm [facility] [place]. V/c's for sequencing) Assessment/Plan Assessment and Plan Assess & Plan/Chief Complaint Assessment: Bilateral BKA's Severe PAD Smoker Severe pain post op Plan: Pain control Monitor labs 04/21/2022: Pain control Monitor bm 04/22/2022: Swallow eval 04/23/2022: Monitor closely Swallow eval 04/24/2022: Complete abx Dressing change 04/25/2022: Monitor closely Supportive care 04/26/2022: Monitor closely Supportive care (1) S/P bilateral below knee amputation ATIF LIND DO Apr 26, 2022 06:12
[2022-04-26 07:51] VITALS: BP 104/65
[2022-04-26] MEDS: SENNA W/DOCUSATE (SENOKOT S) TABLET PO SCH ×2 (08:02→21:41)
[2022-04-26] MEDS: polyethylene glycoL POWDER 17 GM (MIRALAX) PACK PO SCH ×2 (08:02→21:41)
[2022-04-26] MEDS: DOCUSATE SODIUM 100 MG (COLACE) CAP PO SCH ×2 (08:02→21:41)
[2022-04-26] MEDS: MICONAZOLE 2% POWDER (DESENEX AF) 90 GM TOP SCH ×2 (08:02→21:41)
--- NOTE | 2022-04-26 10:51 | Occupational Ther Daily Note ---
OT Current Status-Daily Note Subjective Pt seated in bed upon OT arrival, pt agreeable to tx. Mental Status/Objective Patient Orientation: Person, Place, Situation ADL-Treatment Therapy Code Descriptions/Definitions Functional [place] Measure: 0=Not Assessed/NA 4=Minimal Assistance 1=Total Assistance 5=Supervision or Setup 2=Maximal Assistance 6=Modified [place] 3=Moderate Assistance 7=Complete IndependenceSCALE: Activities may be completed with or without assistive devices. 5-Ayysixihbi-ssxqtaj completes the activity by him/herself with no assistance from a helper. 5-Set-up or Clean-up Assistance-helper sets up or cleans up; patient completes activity. [place] assists only prior to or following the activity. 4-Supervision or Touching Assistance-helper provides verbal cues and/or touching/steadying and/or contact guard assistance as patient completes activity. Assistance may be provided throughout the activity or intermittently. 3-Partial/Moderate Assistance-helper does LESS THAN HALF the effort. [place] lifts, holds or supports trunk or limbs, but provides less than half the effort. 2-Substantial/Maximal Assistance-helper does MORE THAN HALF the effort. [place] lifts or holds trunk or limbs and provides more than half the effort. 4-Icrtkgalv-cjsbmr does ALL the effort. Patient does none of the effort to complete the activity. Or, the assistance of 2 or more helpers is required for the patient to complete the activity. If activity was not attempted, code reason: 7-Patient Refused. 9-Not Applicable-not attempted and the patient did not perform the activity before the current illness, exacerbation or injury. 10-Not Attempted due to Environmental Limitations-(lack of equipment, weather restraints, etc.). 88-Not Attempted due to Medical Conditions or Safety Concerns. Shower/Bathe Self (QC): 5 (set up at bed level) Toileting Hygiene (QC): 5 (urinal at bed level) Other Treatment Pt completed sponge bath at bed level (washing around clothes), then transferred to w/c without SB, SBA. Pt wheeled to therapy gym and completed 15min seated on arm bike (50 hayes of resistance) with w/c back lowered to engage core muscles more and increase activity tolerance and UE strength.. Pt wheeled back to room. Post tx, pt left in w/c with call light in reach and all needs met. Education OT Patient Education: Energy conservation, Exercise program, Progress toward Go al/Update tx plan, Purpose of tx/functional activities, Rehab process, Transfer techniques Teaching Recipient: Patient Teaching Methods: Discussion Response to Teaching: Verbalize Understanding OT Psychiatric Np Goals Mcc Goals Time Frame: May 10, 2022 Eating (QC): 6 Oral Hygiene (QC): 9 Toileting Hygiene (QC): 6 Shower/Bathe Self (QC): 6 (sponge bath) Upper Body Dressing (QC): 6 Lower Body Dressing (QC): 6 On/Off Footwear (QC): 88 Additional Goals: 1-Demonstrate ADL Tasks, 2-Verbalize Understanding, 3- ImproveStrength/[place] 1=Demonstrate adherence to instructed precautions during ADL tasks. 2=Patient will verbalize/demonstrate understanding of assistive devices/modifications for ADL. 3=Patient will improve strength/tolerance for activity to enable patient to perform ADL's. OT Education/Plan Problem List/Assessment Assessment: Decreased Activ Tolerance, Decreased UE Strength Discharge Recommendations Plan/Recommendations: Continue POC Treatment Plan/Plan of Care Patient would benefit from OT for education, treatment and training to promote independence in ADL's, mobility, safety and/or upper extremity function for ADL's. Plan of Care: ADL Retraining, Functional Mobility, Group Exercise/Act as Ind, UE Funct Exercise/Act Treatment Duration: May 10, 2022 Frequency: At least 5 of 7 days/Wk (IRF) Estimated Hrs Per Day: 1.5 hours per day Agreement: Yes Rehab Potential: Good Time/GCodes Start Time: 10:00 Stop Time: 11:00 Total Time Billed (hr/min): 60 Billed Treatment Time 1, ADL 3 (45'), Ex (15') JAMESON LIU OT Apr 26, 2022 10:51
[2022-04-26] MEDS: HYDROmorphone 2 MG/ML VIAL (DILAUDID) IV PRN ×2 (11:48→16:43)
--- NOTE | 2022-04-26 11:50 | Physical Therapy Daily Note ---
PT Daily Note-Current Subjective Patient in WC in room pre tx, agrees to PT, has 7/10 pain in legs. Appearance Patient in bed post tx, has nurse call, phone, tray, all needs met. Will be having a dressing change now. Mental Status Patient Orientation: Person, Place, Situation Transfers SCALE: Activities may be completed with or without assistive devices. 5-Ukqiuobcri-mpperrn completes the activity by him/herself with no assistance from a helper. 5-Set-up or Clean-up Assistance-helper sets up or cleans up; patient completes activity. [place] assists only prior to or following the activity. 4-Supervision or Touching Assistance-helper provides verbal cues and/or touching/steadying and/or contact guard assistance as patient completes activity. Assistance may be provided throughout the activity or intermittently. 3-Partial/Moderate Assistance-helper does LESS THAN HALF the effort. [place] lifts, holds or supports trunk or limbs, but provides less than half the effort. 2-Substantial/Maximal Assistance-helper does MORE THAN HALF the effort. [place] lifts or holds trunk or limbs and provides more than half the effort. 5-Roocjbclk-tjyecj does ALL the effort. Patient does none of the effort to complete the activity. Or, the assistance of 2 or more helpers is required for the patient to complete the activity. If activity was not attempted, code reason: 7-Patient Refused. 9-Not Applicable-not attempted and the patient did not perform the activity before the current illness, exacerbation or injury. 10-Not Attempted due to Environmental Limitations-(lack of equipment, weather restraints, etc.). 88-Not Attempted due to Medical Conditions or Safety Concerns. Roll Left & Right (QC): 6 Sit to Lying (QC): 6 Lying to Sitting/Side of Bed(Q: 6 Chair/Wph-lx-Kkmfh Xfer(QC): 4 Patient performed a sliding transfer without a sliding board with SBA, except he does need some assist to stabilize his WC to keep it from moving during the transfer, patient performed it 3 times Weight Bearing Non Weight Bearing Non Weight Bearing Wheelchair Training Does the Pt Use a Wheelchair?: Yes Wheel 50 ft with 2 turns (QC): 6 Wheel 150 ft (QC): 6 Type of Wheelchair: Manual 800'x2 Exercises Supine Ex: Quad Set, Glut sets, Short Arc Quads, Straight leg raise, Hip abd/add Supine Reps: 20 Seated Therapy Exercises: Hip abd/add (with ball and RTB) lower trunk rotations x20 with legs on theraball, bridges x20 with legs on theraball Treatments bed mobility and transfers, LE ROM and strengthening, WC mobility Assessment Current Status: Fair Progress improving transfers PT Short Term Goals Short Term Goals Time Frame: May 04, 2022 Roll Left & Right: 6 Sit to lyin Lying to sitting on side of be: 6 Sit to stand: 6 Chair/kbi-pa-clacu transfer: 4 Toilet transfer: 4 Car transfer: 4 Wheel 50ft w/2 turns: 6 Wheel 150 feet: 6 Type: Manual PT Prison Goals Manager Of Case Goals PT Prison Goals Time Frame: May 11, 2022 Roll Left & Right (QC): 6 Sit to Lying (QC): 6 Lying-Sitting on Side/Bed(QC): 6 Sit to Stand (QC): 9 Chair/Fmm-mr-Nhewa Xfer(QC): 6 Toilet Transfer (QC): 6 Car Transfer (QC): 6 Does the Patient Walk: No and Walking Goal NOT indicated Walk 10 feet (QC): 9 Walk 50ft with 2 Turns (QC): 9 Walk 150 ft (QC): 9 Walking 10ft on Uneven Surface: 9 1 Step (curb) (QC): 9 4 Steps (QC): 9 12 Steps (QC): 9 Picking up an Object (QC): 9 Does the Pt use WC or Scooter?: Yes Wheel 50 feet with 2 turns (QC: 6 Type: Manual Wheel 150 feet: 6 Type: Manual PT Plan Problem List Problem List: Activity Tolerance, Functional Strength, Safety, Balance, Transfer, Bed Mobility, ROM Treatment/Plan Treatment Plan: Continue Plan of Care Treatment Plan: Bed Mobility, Education, Functional Activity [place], Functional Strength, Group Therapy, Safety, Therapeutic Exercise, Transfers Treatment Duration: May 11, 2022 Frequency: At least 5 of 7 days/Wk (IRF) Estimated Hrs Per Day: 1.5 hours per day Patient and/or Family Agrees t: Yes Safety Risks/Education Patient Education: Transfer Techniques, Correct Positioning, W/C Management, Safety Issues Teaching Recipient: Patient Teaching Methods: Demonstration, Discussion Response to Teaching: Reinforcement Needed Time/GCodes Time In: 1100 Time Out: 1200 Total Billed Treatment Time: 60 Total Billed Treatment 1 visit EX 30' FA 30' UJAN RAMON HEARD PT Apr 26, 2022 11:50
--- NOTE | 2022-04-26 14:41 | Physical Therapy Progress Note ---
Therapy Progress Note Patient in not going to be able to perform PT this afternoon. He has been having his dressings changed for the last almost 2 hours and patient is having a lot of pain. PT will be held at this time and patient will be 10/05. JUAN RAMON HEARD PT Apr 26, 2022 14:41
--- NOTE | 2022-04-26 14:59 | Occ Therapy Progress Note ---
Therapy Progress Note Pt's POC updated to 10/05. JAMESON LIU OT Apr 26, 2022 14:59
--- NOTE | 2022-04-26 15:04 | Occupational Ther Daily Note ---
OT Current Status-Daily Note Subjective Pt laying in bed, attempting to remove dressing from L stump, but having extreme pain. Mental Status/Objective Patient Orientation: Person, Place, Situation ADL-Treatment Therapy Code Descriptions/Definitions Functional [place] Measure: 0=Not Assessed/NA 4=Minimal Assistance 1=Total Assistance 5=Supervision or Setup 2=Maximal Assistance 6=Modified [place] 3=Moderate Assistance 7=Complete IndependenceSCALE: Activities may be completed with or without assistive devices. 4-Vzrjluhfan-iznbwcx completes the activity by him/herself with no assistance from a helper. 5-Set-up or Clean-up Assistance-helper sets up or cleans up; patient completes activity. [place] assists only prior to or following the activity. 4-Supervision or Touching Assistance-helper provides verbal cues and/or touchi ng/steadying and/or contact guard assistance as patient completes activity. Assistance may be provided throughout the activity or intermittently. 3-Partial/Moderate Assistance-helper does LESS THAN HALF the effort. [place] lifts, holds or supports trunk or limbs, but provides less than half the effort. 2-Substantial/Maximal Assistance-helper does MORE THAN HALF the effort. [place] lifts or holds trunk or limbs and provides more than half the effort. 2-Dhnlxorjs-wavism does ALL the effort. Patient does none of the effort to complete the activity. Or, the assistance of 2 or more helpers is required for the patient to complete the activity. If activity was not attempted, code reason: 7-Patient Refused. 9-Not Applicable-not attempted and the patient did not perform the activity before the current illness, exacerbation or injury. 10-Not Attempted due to Environmental Limitations-(lack of equipment, weather restraints, etc.). 88-Not Attempted due to Medical Conditions or Safety Concerns. Other Treatment Pt in bed attempting to change his dressing. This has been a slow process, beginning around lunch time and taking over 2 hours. Pt states very extreme pain with removal of the dressing from L stump. Pt agreeable to OT Tx with focus on energy conservation. OT educated pt on energy conservation techniques, leaving handout in pt's room, pt verbalized understanding of information, but after instruction he was unable to recall any of the 4 P's (Pace, plan, position, prioritize). Post tx, pt in bed, call light in reach and all needs met. Education OT Patient Education: Correct positioning, Energy conservation, Modified ADL techniques, Progress toward Goal/Update tx plan, Purpose of tx/functional activities Teaching Recipient: Patient Teaching Methods: Discussion Response to Teaching: Verbalize Understanding, Reinforcement Needed OT Injection Molding Machine Tender Goals Correction Goals Time Frame: May 10, 2022 Eating (QC): 6 Oral Hygiene (QC): 9 Toileting Hygiene (QC): 6 Shower/Bathe Self (QC): 6 (sponge bath) Upper Body Dressing (QC): 6 Lower Body Dressing (QC): 6 On/Off Footwear (QC): 88 Additional Goals: 1-Demonstrate ADL Tasks, 2-Verbalize Understanding, 3- ImproveStrength/[place] 1=Demonstrate adherence to instructed precautions during ADL tasks. 2=Patient will verbalize/demonstrate understanding of assistive devices/modifica tions for ADL. 3=Patient will improve strength/tolerance for activity to enable patient to perform ADL's. OT Education/Plan Problem List/Assessment Assessment: Decreased Activ Tolerance, Impaired Funct Balance, Impaired I ADL's, Impaired Self-Care Skills Discharge Recommendations Plan/Recommendations: Continue POC Treatment Plan/Plan of Care Patient would benefit from OT for education, treatment and training to promote independence in ADL's, mobility, safety and/or upper extremity function for ADL's. Plan of Care: ADL Retraining, Functional Mobility, Group Exercise/Act as Ind, UE Funct Exercise/Act Treatment Duration: May 10, 2022 Frequency: Modified Program (IRF) (10/05) Estimated Hrs Per Day: 1.5 hours per day (60-90 mins per day) Agreement: Yes Rehab Potential: Good Time/GCodes Start Time: 14:45 Stop Time: 14:55 Total Time Billed (hr/min): 10 Billed Treatment Time 1, FA JAMESON LIU OT Apr 26, 2022 15:04
[2022-04-26 20:00] VITALS: BP 93/60
[2022-04-27] MEDS ORDERED: SIMETHICONE 80 MG (MYLICON) CHEW PO PRN (05:45)
--- NOTE | 2022-04-27 05:55 | PM&R Progress Note ---
Subjective HPI/CC On Admission Date Seen by Provider: Apr 27, 2022 Time Seen by Provider: 05:45 Subjective/Events-last exam 04/27/2022: Pt doing pretty well Pt has a lot of gas pain, Simethicone ordered Pain control during dressing changes is provided 04/26/2022: Pt has no complaints Dilaudid given prior to dressing change No other concerns 04/25/2022: Pt is doing well Dressing changes done by nurse and wound care Dilaudid given before dressing changes 04/24/2022: Pt is doing about the same Bowels are moving [place] will be changing the dressing every other day and the rehab nurses will do that every other 04/23/2022: Patient doing about the same Wound care change requires Dilaudid prior to Dysphagia continues Bowels are moving 04/22/2022: Patient doing well Receiving Dilaudid 1 hour before dressing changes Overall doing pretty well Working on swallowing with barium swallow 04/21/2022: Patient doing pretty well Bowels moved yesterday Decreasing Dilaudid use Nystatin powder helpful Review of Systems General: Fatigue, Malaise Musculoskeletal: leg pain Objective Exam Vital Signs Vital Signs Date Time Temp Pulse Resp B/P (MAP) Pulse Ox O2 Delivery O2 Flow Rate FiO2 04/27/22 09:00 Room Air 04/27/22 07:30 36.0 93 18 123/78 (93) 94 Capillary Refill : General Appearance: No Apparent Distress, WD/WN, Chronically ill, Thin HEENT: PERRL/EOMI, Normal ENT Inspection, Pharynx Normal Neck: Normal Inspection, Non Tender, Supple Respiratory: Chest Non Tender, No Accessory Muscle Use, No Respiratory Distress Cardiovascular: Regular Rate, Rhythm, No JVD Gastrointestinal: Normal Bowel Sounds, No Organomegaly, No Pulsatile Mass, Non Tender, Soft Back: Normal Inspection, No CVA Tenderness, No Vertebral Tenderness Extremity: Normal Capillary Refill, Other (Bilateral lower amputations, dressing clean and intact) Neurologic/Psychiatric: Alert, Oriented x3, No Motor/Sensory Deficits, Normal Mood/Affect, promotional advertising assistant II-XII Norm as Tested, Abnormal Gait (Can ambulate), Motor Weakness (Lower extremities) Skin: Normal Color, Warm/Dry Lymphatic: No Adenopathy Results/Procedures Lab Patient resulted labs reviewed. FIM Transfers Therapy Code Descriptions/Definitions Functional [place] Measure: 0=Not Assessed/NA 4=Minimal Assistance 1=Total Assistance 5=Supervision or Setup 2=Maximal Assistance 6=Modified [place] 3=Moderate Assistance 7=Complete IndependenceSCALE: Activities may be completed with or without assistive devices. 1-Xoahnlzbak-qzbrxqz completes the activity by him/herself with no assistance from a helper. 5-Set-up or Clean-up Assistance-helper sets up or cleans up; patient completes activity. [place] assists only prior to or following the activity. 4-Supervision or Touching Assistance-helper provides verbal cues and/or touching/steadying and/or contact guard assistance as patient completes activity. Assistance may be provided throughout the activity or intermittently. 3-Partial/Moderate Assistance-helper does LESS THAN HALF the effort. [place] lifts, holds or supports trunk or limbs, but provides less than half the effort. 2-Substantial/Maximal Assistance-helper does MORE THAN HALF the effort. [place] lifts or holds trunk or limbs and provides more than half the effort. 8-Rscjydfob-lkhnce does ALL the effort. Patient does none of the effort to complete the activity. Or, the assistance of 2 or more helpers is required for the patient to complete the activity. If activity was not attempted, code reason: 7-Patient Refused. 9-Not Applicable-not attempted and the patient did not perform the activity before the current illness, exacerbation or injury. 10-Not Attempted due to Environmental Limitations-(lack of equipment, weather restraints, etc.). 88-Not Attempted due to Medical Conditions or Safety Concerns. Roll Left to Right (QC): 6 Sit to Lying (QC): 6 Sit to Stand (QC): 88 Chair/Mpb-dx-Dgixr Xfer(QC): 4 Car Transfer (QC): 88 Gait Training Does the Patient Walk?: No and Walking Goal NOT indicated Walk 10 feet (QC): 9 Walk 50 ft with 2 Turns(QC): 9 Walk 150 ft (QC): 9 Walking 10ft/uneven surface-QC: 9 Wheelchair Training Does the Pt Use a Wheelchair?: Yes Wheel 50 ft with 2 turns (QC): 6 Wheel 150 ft (QC): 6 Type of Wheelchair: Manual Stair Training 1 Step (curb) (QC): 9 4 Steps (QC): 9 12 Steps (QC): 9 Balance Picking up an Object (QC): 9 ADL-Treatment Eating (QC): 6 Oral Hygiene (QC): 9 Shower/Bathe Self (QC): 5 (set up at bed level) Upper Body Dressing (QC): 5 (setup at bed level) Lower Body Dressing (QC): 5 (setup at bed level) On/Off Footwear (QC): 88 Toileting Hygiene (QC): 5 (urinal at bed level) Toilet Transfer (QC): 3 (Min A with sliding board transfer to drop arm [facility] [place]. V/c's for sequencing) Assessment/Plan Assessment and Plan Assess & Plan/Chief Complaint Assessment: Bilateral BKA's Severe PAD Smoker Severe pain post op Plan: Pain control Monitor labs 04/21/2022: Pain control Monitor bm 04/22/2022: Swallow eval 04/23/2022: Monitor closely Swallow eval 04/24/2022: Complete abx Dressing change 04/25/2022: Monitor closely Supportive care 04/26/2022: Monitor closely Supportive care 04/27/2022: Pain control Dressing changes daily (1) S/P bilateral below knee amputation ATIF LIND DO Apr 27, 2022 05:55
[2022-04-27 07:30] VITALS: BP 123/78
[2022-04-27] MEDS: SENNA W/DOCUSATE (SENOKOT S) TABLET PO SCH ×2 (09:00→23:26)
[2022-04-27] MEDS: DOCUSATE SODIUM 100 MG (COLACE) CAP PO SCH ×2 (09:00→23:24)
[2022-04-27] MEDS: polyethylene glycoL POWDER 17 GM (MIRALAX) PACK PO SCH ×2 (09:00→23:26)
[2022-04-27] MEDS: MICONAZOLE 2% POWDER (DESENEX AF) 90 GM TOP SCH ×2 (09:00→22:18)
--- NOTE | 2022-04-27 12:44 | Physical Therapy Progress Note ---
Therapy Progress Note Pt refused treatment due to gi pain and frequent trips to the restroom. Will resume on Friday. DINO SLOAN PT Apr 27, 2022 12:44
[2022-04-27] MEDS: HYDROmorphone 2 MG/ML VIAL (DILAUDID) IV PRN ×2 (15:14→20:02)
[2022-04-27 19:53] VITALS: BP 98/61
[2022-04-28] MEDS: HYDROmorphone 2 MG/ML VIAL (DILAUDID) IV PRN ×3 (01:15→10:46)
--- NOTE | 2022-04-28 05:52 | PM&R Progress Note ---
Subjective HPI/CC On Admission Date Seen by Provider: Apr 28, 2022 Time Seen by Provider: 06:00 Subjective/Events-last exam 04/28/2022: Patient doing a lot better Change Dilaudid to only once a day since he was taking it every 4 hours alternating with oxycodone Dressing changes will be maintained 04/27/2022: Pt doing pretty well Pt has a lot of gas pain, Simethicone ordered Pain control during dressing changes is provided 04/26/2022: Pt has no complaints Dilaudid given prior to dressing change No other concerns 04/25/2022: Pt is doing well Dressing changes done by nurse and wound care Dilaudid given before dressing changes 04/24/2022: Pt is doing about the same Bowels are moving Emeli will be changing the dressing every other day and the rehab nurses will do that every other 04/23/2022: Patient doing about the same Wound care change requires Dilaudid prior to Dysphagia continues Bowels are moving 04/22/2022: Patient doing well Receiving Dilaudid 1 hour before dressing changes Overall doing pretty well Working on swallowing with barium swallow 04/21/2022: Patient doing pretty well Bowels moved yesterday Decreasing Dilaudid use Nystatin powder helpful Review of Systems Musculoskeletal: leg pain Objective Exam Vital Signs Vital Signs Date Time Temp Pulse Resp B/P (MAP) Pulse Ox O2 Delivery O2 Flow Rate FiO2 04/28/22 09:22 Room Air 04/28/22 07:30 36.7 86 18 109/67 (81) 97 Capillary Refill : General Appearance: No Apparent Distress, WD/WN, Chronically ill, Thin HEENT: PERRL/EOMI, Normal ENT Inspection, Pharynx Normal Neck: Normal Inspection, Non Tender, Supple Respiratory: Chest Non Tender, No Accessory Muscle Use, No Respiratory Distress Cardiovascular: Regular Rate, Rhythm, No JVD Gastrointestinal: Normal Bowel Sounds, No Organomegaly, No Pulsatile Mass, Non Tender, Soft Back: Normal Inspection, No CVA Tenderness, No Vertebral Tenderness Extremity: Normal Capillary Refill, Other (Bilateral lower amputations, dressing clean and intact) Neurologic/Psychiatric: Alert, Oriented x3, No Motor/Sensory Deficits, Normal Mood/Affect, order picker II-XII Norm as Tested, Abnormal Gait (Can ambulate), Motor Weakness (Lower extremities) Skin: Normal Color, Warm/Dry Lymphatic: No Adenopathy Results/Procedures Lab Patient resulted labs reviewed. FIM Transfers Therapy Code Descriptions/Definitions Functional [place] Measure: 0=Not Assessed/NA 4=Minimal Assistance 1=Total Assistance 5=Supervision or Setup 2=Maximal Assistance 6=Modified [place] 3=Moderate Assistance 7=Complete IndependenceSCALE: Activities may be completed with or without assistive devices. 7-Bkgcdeumgn-fwylciy completes the activity by him/herself with no assistance from a helper. 5-Set-up or Clean-up Assistance-helper sets up or cleans up; patient completes activity. [place] assists only prior to or following the activity. 4-Supervision or Touching Assistance-helper provides verbal cues and/or touching/steadying and/or contact guard assistance as patient completes activity. Assistance may be provided throughout the activity or intermittently. 3-Partial/Moderate Assistance-helper does LESS THAN HALF the effort. [place] lifts, holds or supports trunk or limbs, but provides less than half the effort. 2-Substantial/Maximal Assistance-helper does MORE THAN HALF the effort. [place] lifts or holds trunk or limbs and provides more than half the effort. 4-Bdrpkcylm-elokja does ALL the effort. Patient does none of the effort to complete the activity. Or, the assistance of 2 or more helpers is required for the patient to complete the activity. If activity was not attempted, code reason: 7-Patient Refused. 9-Not Applicable-not attempted and the patient did not perform the activity before the current illness, exacerbation or injury. 10-Not Attempted due to Environmental Limitations-(lack of equipment, weather restraints, etc.). 88-Not Attempted due to Medical Conditions or Safety Concerns. Roll Left to Right (QC): 6 Sit to Lying (QC): 6 Sit to Stand (QC): 88 Chair/Pfw-nt-Ckqfs Xfer(QC): 4 Car Transfer (QC): 88 Gait Training Does the Patient Walk?: No and Walking Goal NOT indicated Walk 10 feet (QC): 9 Walk 50 ft with 2 Turns(QC): 9 Walk 150 ft (QC): 9 Walking 10ft/uneven surface-QC: 9 Wheelchair Training Does the Pt Use a Wheelchair?: Yes Wheel 50 ft with 2 turns (QC): 6 Wheel 150 ft (QC): 6 Type of Wheelchair: Manual Stair Training 1 Step (curb) (QC): 9 4 Steps (QC): 9 12 Steps (QC): 9 Balance Picking up an Object (QC): 9 ADL-Treatment Eating (QC): 6 Oral Hygiene (QC): 9 Shower/Bathe Self (QC): 5 (set up at bed level) Upper Body Dressing (QC): 5 (setup at bed level) Lower Body Dressing (QC): 5 (setup at bed level) On/Off Footwear (QC): 88 Toileting Hygiene (QC): 5 (urinal at bed level) Toilet Transfer (QC): 3 (Min A with sliding board transfer to drop arm BS. V/c's for sequencing) Assessment/Plan Assessment and Plan Assess & Plan/Chief Complaint Assessment: Bilateral BKA's Severe PAD Smoker Severe pain post op Plan: Pain control Monitor labs 04/21/2022: Pain control Monitor bm 04/22/2022: Swallow eval 04/23/2022: Monitor closely Swallow eval 04/24/2022: Complete abx Dressing change 04/25/2022: Monitor closely Supportive care 04/26/2022: Monitor closely Supportive care 04/27/2022: Pain control Dressing changes daily 04/28/2022: Decrease Dilaudid to only once daily with dressing changes (1) S/P bilateral below knee amputation ATIF LIND DO Apr 28, 2022 05:52
[2022-04-28 07:30] VITALS: BP 109/67
[2022-04-28] MEDS: GABAPENTIN 100 MG (NEURONTIN) CAP PO SCH ×3 (08:59→20:49)
[2022-04-28] MEDS: SENNA W/DOCUSATE (SENOKOT S) TABLET PO SCH ×2 (09:27→19:43)
[2022-04-28] MEDS: polyethylene glycoL POWDER 17 GM (MIRALAX) PACK PO SCH ×2 (09:27→19:43)
[2022-04-28] MEDS: DOCUSATE SODIUM 100 MG (COLACE) CAP PO SCH ×2 (09:27→19:43)
--- NOTE | 2022-04-28 12:13 | Progress Note - Surgery ---
Subjective Date Seen by a Provider: Apr 28, 2022 Time Seen by a Provider: 12:11 Subjective/Events-last exam Doing okay. No complaints. Wound care going okay he states. Still has some pain, but tolerating. Deneis n/v fever sweats chills shortness of breath or chest pain. Objective Exam Vital Signs Date Time Temp Pulse Resp B/P (MAP) Pulse Ox O2 Delivery O2 Flow Rate FiO2 04/28/22 09:22 Room Air 04/28/22 07:30 36.7 86 18 109/67 (81) 97 Room Air 04/27/22 21:00 Room Air 04/27/22 19:53 36.4 85 20 98/61 (73) 95 Room Air Capillary Refill : General Appearance: No Apparent Distress, WD/WN, Chronically ill, Thin HEENT: PERRL/EOMI, Normal ENT Inspection, Pharynx Normal Neck: Normal Inspection, Non Tender, Supple Respiratory: Chest Non Tender, No Accessory Muscle Use, No Respiratory Distress Cardiovascular: Regular Rate, Rhythm, No JVD Gastrointestinal: non tender, soft Extremity: Normal Capillary Refill, Other (Bilateral lower amputations, granulation tissue coming in, no signs infection) Neurologic/Psychiatric: Alert, Oriented x3, No Motor/Sensory Deficits, Normal Mood/Affect, sack sorter II-XII Norm as Tested, Abnormal Gait (Can ambulate), Motor Weakness (Lower extremities) Skin: Normal Color, Warm/Dry Lymphatic: No Adenopathy Assessment/Plan Assessment/Plan Assessment/Plan S/P B/L BKA dressings changed wound care daily pain control PT/OT will follow periodically, if needed please call CHASE GONZALEZ DO Apr 28, 2022 12:13
[2022-04-28] MEDS: MICONAZOLE 2% POWDER (DESENEX AF) 90 GM TOP SCH ×2 (13:42→20:51)
[2022-04-28 19:42] VITALS: BP 106/66
--- NOTE | 2022-04-29 06:01 | PM&R Progress Note ---
Subjective HPI/CC On Admission Date Seen by Provider: Apr 29, 2022 Time Seen by Provider: 06:00 Subjective/Events-last exam 04/29/2022: Patient doing much better Less pain Sleeping soundly currently 04/28/2022: Patient doing a lot better Change Dilaudid to only once a day since he was taking it every 4 hours alternating with oxycodone Dressing changes will be maintained 04/27/2022: Pt doing pretty well Pt has a lot of gas pain, Simethicone ordered Pain control during dressing changes is provided 04/26/2022: Pt has no complaints Dilaudid given prior to dressing change No other concerns 04/25/2022: Pt is doing well Dressing changes done by nurse and wound care Dilaudid given before dressing changes 04/24/2022: Pt is doing about the same Bowels are moving [place] will be changing the dressing every other day and the rehab nurses will do that every other 04/23/2022: Patient doing about the same Wound care change requires Dilaudid prior to Dysphagia continues Bowels are moving 04/22/2022: Patient doing well Receiving Dilaudid 1 hour before dressing changes Overall doing pretty well Working on swallowing with barium swallow 04/21/2022: Patient doing pretty well Bowels moved yesterday Decreasing Dilaudid use Nystatin powder helpful Review of Systems Musculoskeletal: leg pain Objective Exam Vital Signs Vital Signs Date Time Temp Pulse Resp B/P (MAP) Pulse Ox O2 Delivery O2 Flow Rate FiO2 04/29/22 09:13 Room Air 04/29/22 07:52 35.6 69 16 110/55 (73) 97 Capillary Refill : General Appearance: No Apparent Distress, WD/WN, Chronically ill, Thin HEENT: PERRL/EOMI, Normal ENT Inspection, Pharynx Normal Neck: Normal Inspection, Non Tender, Supple Respiratory: Chest Non Tender, No Accessory Muscle Use, No Respiratory Distress Cardiovascular: Regular Rate, Rhythm, No JVD Gastrointestinal: Normal Bowel Sounds, No Organomegaly, No Pulsatile Mass, Non Tender, Soft Back: Normal Inspection, No CVA Tenderness, No Vertebral Tenderness Extremity: Normal Capillary Refill, Other (Bilateral lower amputations, dressing clean and intact) Neurologic/Psychiatric: Alert, Oriented x3, No Motor/Sensory Deficits, Normal Mood/Affect, production operator II-XII Norm as Tested, Abnormal Gait (Can ambulate), Motor Weakness (Lower extremities) Skin: Normal Color, Warm/Dry Lymphatic: No Adenopathy Results/Procedures Lab Patient resulted labs reviewed. FIM Transfers Therapy Code Descriptions/Definitions Functional [place] Measure: 0=Not Assessed/NA 4=Minimal Assistance 1=Total Assistance 5=Supervision or Setup 2=Maximal Assistance 6=Modified [place] 3=Moderate Assistance 7=Complete IndependenceSCALE: Activities may be completed with or without assistive devices. 1-Vuaizrrelc-kzunkyr completes the activity by him/herself with no assistance from a helper. 5-Set-up or Clean-up Assistance-helper sets up or cleans up; patient completes activity. [place] assists only prior to or following the activity. 4-Supervision or Touching Assistance-helper provides verbal cues and/or touching /steadying and/or contact guard assistance as patient completes activity. Assistance may be provided throughout the activity or intermittently. 3-Partial/Moderate Assistance-helper does LESS THAN HALF the effort. [place] lifts, holds or supports trunk or limbs, but provides less than half the effort. 2-Substantial/Maximal Assistance-helper does MORE THAN HALF the effort. [place] lifts or holds trunk or limbs and provides more than half the effort. 1-Vsfxsyzxb-crgrko does ALL the effort. Patient does none of the effort to complete the activity. Or, the assistance of 2 or more helpers is required for the patient to complete the activity. If activity was not attempted, code reason: 7-Patient Refused. 9-Not Applicable-not attempted and the patient did not perform the activity before the current illness, exacerbation or injury. 10-Not Attempted due to Environmental Limitations-(lack of equipment, weather restraints, etc.). 88-Not Attempted due to Medical Conditions or Safety Concerns. Roll Left to Right (QC): 6 Sit to Lying (QC): 6 Sit to Stand (QC): 88 Chair/Vnv-yb-Fhdht Xfer(QC): 4 Car Transfer (QC): 88 Gait Training Does the Patient Walk?: No and Walking Goal NOT indicated Walk 10 feet (QC): 9 Walk 50 ft with 2 Turns(QC): 9 Walk 150 ft (QC): 9 Walking 10ft/uneven surface-QC: 9 Wheelchair Training Does the Pt Use a Wheelchair?: Yes Wheel 50 ft with 2 turns (QC): 6 Wheel 150 ft (QC): 6 Type of Wheelchair: Manual Stair Training 1 Step (curb) (QC): 9 4 Steps (QC): 9 12 Steps (QC): 9 Balance Picking up an Object (QC): 9 ADL-Treatment Eating (QC): 6 Oral Hygiene (QC): 9 Shower/Bathe Self (QC): 5 (set up at bed level) Upper Body Dressing (QC): 5 (setup at bed level) Lower Body Dressing (QC): 5 (setup at bed level) On/Off Footwear (QC): 88 Toileting Hygiene (QC): 5 (urinal at bed level) Toilet Transfer (QC): 3 (Min A with sliding board transfer to drop arm BS. V/c's for sequencing) Assessment/Plan Assessment and Plan Assess & Plan/Chief Complaint Assessment: Bilateral BKA's Severe PAD Smoker Severe pain post op Plan: Pain control Monitor labs 04/21/2022: Pain control Monitor bm 04/22/2022: Swallow eval 04/23/2022: Monitor closely Swallow eval 04/24/2022: Complete abx Dressing change 04/25/2022: Monitor closely Supportive care 04/26/2022: Monitor closely Supportive care 04/27/2022: Pain control Dressing changes daily 04/28/2022: Decrease Dilaudid to only once daily with dressing changes 04/29/2022: Monitor closely (1) S/P bilateral below knee amputation ATIF LIND DO Apr 29, 2022 06:01
[2022-04-29 07:52] VITALS: BP 110/55
[2022-04-29] MEDS: GABAPENTIN 100 MG (NEURONTIN) CAP PO SCH ×3 (08:05→20:21)
[2022-04-29] MEDS: MICONAZOLE 2% POWDER (DESENEX AF) 90 GM TOP SCH ×2 (09:00→20:23)
[2022-04-29] MEDS: DOCUSATE SODIUM 100 MG (COLACE) CAP PO SCH ×2 (09:10→19:58)
[2022-04-29] MEDS: polyethylene glycoL POWDER 17 GM (MIRALAX) PACK PO SCH ×2 (09:11→19:58)
[2022-04-29] MEDS: SENNA W/DOCUSATE (SENOKOT S) TABLET PO SCH ×2 (09:12→19:58)
--- NOTE | 2022-04-29 09:51 | Physical Therapy Daily Note ---
PT Daily Note-Current Subjective Patient in bed pre tx, agrees to PT, has unrated pain in both legs. Appearance Patient in WC at bedside post tx with nurse call, phone, tray, all needs met, has OT right after PT. Mental Status Patient Orientation: Normal For Age Transfers SCALE: Activities may be completed with or without assistive devices. 7-Ragwwndcin-jrtexwr completes the activity by him/herself with no assistance from a helper. 5-Set-up or Clean-up Assistance-helper sets up or cleans up; patient completes activity. [place] assists only prior to or following the activity. 4-Supervision or Touching Assistance-helper provides verbal cues and/or touching/steadying and/or contact guard assistance as patient completes activity. Assistance may be provided throughout the activity or intermittently. 3-Partial/Moderate Assistance-helper does LESS THAN HALF the effort. [place] lifts, holds or supports trunk or limbs, but provides less than half the effort. 2-Substantial/Maximal Assistance-helper does MORE THAN HALF the effort. [place] lifts or holds trunk or limbs and provides more than half the effort. 0-Ieohgyzuh-axmtcs does ALL the effort. Patient does none of the effort to complete the activity. Or, the assistance of 2 or more helpers is required for the patient to complete the activity. If activity was not attempted, code reason: 7-Patient Refused. 9-Not Applicable-not attempted and the patient did not perform the activity before the current illness, exacerbation or injury. 10-Not Attempted due to Environmental Limitations-(lack of equipment, weather restraints, etc.). 88-Not Attempted due to Medical Conditions or Safety Concerns. Roll Left & Right (QC): 6 Sit to Lying (QC): 6 Lying to Sitting/Side of Bed(Q: 6 Chair/Zuq-jk-Emlsf Xfer(QC): 3 Patient performed a sliding transfer without using a board, 3 times, therapist has to stabilize the WC while patient performs the transfer Weight Bearing Non Weight Bearing Non Weight Bearing Wheelchair Training Does the Pt Use a Wheelchair?: Yes Wheel 50 ft with 2 turns (QC): 6 Wheel 150 ft (QC): 6 Type of Wheelchair: Manual 300', 150' Exercises Supine Ex: Quad Set, Glut sets, Short Arc Quads, Straight leg raise, Hip abd/add Supine Reps: 20 prone hip stretch 5 min, supine bilateral knee extension stretch 5 min, alternating LAQ seated 5 min Treatments bed mobility and transfers, WC mobility, LE stretching and strengthening Assessment Current Status: Fair Progress improved hip extension during stretch PT Short Term Goals Short Term Goals Time Frame: May 04, 2022 Roll Left & Right: 6 Sit to lyin Lying to sitting on side of be: 6 Sit to stand: 6 Chair/pic-yj-rbmrj transfer: 4 Toilet transfer: 4 Car transfer: 4 Wheel 50ft w/2 turns: 6 Wheel 150 feet: 6 Type: Manual PT Longterm Goals Pigment Making Supervisor Goals PT Pigment Making Supervisor Goals Time Frame: May 11, 2022 Roll Left & Right (QC): 6 Sit to Lying (QC): 6 Lying-Sitting on Side/Bed(QC): 6 Sit to Stand (QC): 9 Chair/Fbb-wr-Nmnsj Xfer(QC): 6 Toilet Transfer (QC): 6 Car Transfer (QC): 6 Does the Patient Walk: No and Walking Goal NOT indicated Walk 10 feet (QC): 9 Walk 50ft with 2 Turns (QC): 9 Walk 150 ft (QC): 9 Walking 10ft on Uneven Surface: 9 1 Step (curb) (QC): 9 4 Steps (QC): 9 12 Steps (QC): 9 Picking up an Object (QC): 9 Does the Pt use WC or Scooter?: Yes Wheel 50 feet with 2 turns (QC: 6 Type: Manual Wheel 150 feet: 6 Type: Manual PT Plan Problem List Problem List: Activity Tolerance, Functional Strength, Safety, Balance, Gait, Transfer, Bed Mobility, ROM Treatment/Plan Treatment Plan: Continue Plan of Care Treatment Plan: Bed Mobility, Education, Functional Activity [place], Functional Strength, Group Therapy, Safety, Therapeutic Exercise, Transfers Treatment Duration: May 11, 2022 Frequency: At least 5 of 7 days/Wk (IRF) Estimated Hrs Per Day: 1.5 hours per day Patient and/or Family Agrees t: Yes Safety Risks/Education Patient Education: Transfer Techniques, Correct Positioning, W/C Management, Safety Issues Teaching Recipient: Patient Teaching Methods: Demonstration, Discussion Response to Teaching: Reinforcement Needed Time/GCodes Time In: 0900 Time Out: 1000 Total Billed Treatment Time: 60 Total Billed Treatment 1 visit EX 30' FA 30' JUAN RAMON HEARD PT Apr 29, 2022 09:51
--- NOTE | 2022-04-29 10:40 | Occupational Ther Daily Note ---
OT Current Status-Daily Note Subjective Pt performing nail care while seated in w/c upon OT arrival, agreeable to tx. Mental Status/Objective Patient Orientation: Person, Place, Situation ADL-Treatment Therapy Code Descriptions/Definitions Functional [place] Measure: 0=Not Assessed/NA 4=Minimal Assistance 1=Total Assistance 5=Supervision or Setup 2=Maximal Assistance 6=Modified [place] 3=Moderate Assistance 7=Complete IndependenceSCALE: Activities may be completed with or without assistive devices. 0-Hqisfbmuck-eaxqxnq completes the activity by him/herself with no assistance from a helper. 5-Set-up or Clean-up Assistance-helper sets up or cleans up; patient completes activity. [place] assists only prior to or following the activity. 4-Supervision or Touching Assistance-helper provides verbal cues and/or touching/steadying and/or contact guard assistance as patient completes activity. Assistance may be provided throughout the activity or intermittently. 3-Partial/Moderate Assistance-helper does LESS THAN HALF the effort. [place] lifts, holds or supports trunk or limbs, but provides less than half the effort. 2-Substantial/Maximal Assistance-helper does MORE THAN HALF the effort. [place] lifts or holds trunk or limbs and provides more than half the effort. 2-Zhqqycood-wbdkxw does ALL the effort. Patient does none of the effort to complete the activity. Or, the assistance of 2 or more helpers is required for the patient to complete the activity. If activity was not attempted, code reason: 7-Patient Refused. 9-Not Applicable-not attempted and the patient did not perform the activity before the current illness, exacerbation or injury. 10-Not Attempted due to Environmental Limitations-(lack of equipment, weather restraints, etc.). 88-Not Attempted due to Medical Conditions or Safety Concerns. Other Treatment Pt politely declined any ADLs at this time, preferring to go to therapy gym and participate in BUE exercises. Pt wheeled to therapy gym and completed 15min seated on arm bike (50watts of resistance), RBs PRN. Pt then completed four different BUE exercises (horizontal abductions, bicep curls, tricep extensions, and seated rows) with the blue Theraband (heavy resistance), 15-20 reps each, RBs PRN. Pt practiced IND lowering and raising backrest of w/c for exercises, able to complete on first try. Pt wheeled back to room and preferred to stay in w/c at this time. Post tx, pt left in w/c with call light in reach and all needs met. Education OT Patient Education: Correct positioning, Energy conservation, Exercise prog jamie, Progress toward Goal/Update tx plan, Purpose of tx/functional activities, Rehab process, W/C management Teaching Recipient: Patient Teaching Methods: Demonstration, Discussion Response to Teaching: Verbalize Understanding, Reinforcement Needed OT Skilled Nursing Goals Skilled Nursing Goals Time Frame: May 10, 2022 Eating (QC): 6 Oral Hygiene (QC): 9 Toileting Hygiene (QC): 6 Shower/Bathe Self (QC): 6 (sponge bath) Upper Body Dressing (QC): 6 Lower Body Dressing (QC): 6 On/Off Footwear (QC): 88 Additional Goals: 1-Demonstrate ADL Tasks, 2-Verbalize Understanding, 3- ImproveStrength/[place] 1=Demonstrate adherence to instructed precautions during ADL tasks. 2=Patient will verbalize/demonstrate understanding of assistive devices/modifications for ADL. 3=Patient will improve strength/tolerance for activity to enable patient to perform ADL's. OT Education/Plan Problem List/Assessment Assessment: Decreased Activ Tolerance, Decreased UE Strength Discharge Recommendations Plan/Recommendations: Continue POC Treatment Plan/Plan of Care Patient would benefit from OT for education, treatment and training to promote independence in ADL's, mobility, safety and/or upper extremity function for ADL's. Plan of Care: ADL Retraining, Functional Mobility, Group Exercise/Act as Ind, UE Funct Exercise/Act Treatment Duration: May 10, 2022 Frequency: Modified Program (IRF) (10/05) Estimated Hrs Per Day: 1.5 hours per day (60-90 mins per day) Agreement: Yes Rehab Potential: Good Time/GCodes Start Time: 10:00 Stop Time: 11:00 Total Time Billed (hr/min): 60 Billed Treatment Time 1, Ex 4 (60') JAMESON LIU OT Apr 29, 2022 10:40
--- NOTE | 2022-04-29 13:11 | Therapy Group Daily Note ---
Therapy Daily Group Note Patient Education Topic Home Safety, Exercises, Other List Below (Nutrition/health) Exercises LE Seated Exercise, UE Exercise Session Ratio (pt:therapist): 4:1 Goal of Session: Home Safety Strategies, UE/LE Strengthing, Other (list) (Nutrition/Health) Goal Met for this Session: Yes Pt Benefit of Group: Contributions to Others, F/U Use of Strategies @Home, Increased Functional Safety, Increased Functional Strength, Improved Cognition, Recognition of Peers, Socialization Other/Notes Pt participated in Nutrition and health promotion group in [facility]. Pt participated in group session, first with introductions (Name, where pt is from, and favorite place to watch fireworks). This group treatment was better than individual to address socialization and recognition of peers. Pt met goals of group as demonstrated by answering questions related to overall health and nutrition, and participating in UE/LE seated exercises. Pt demonstrated the following abilities during group activity: good problem solving and safety skills, improved attention span and ability to participate in group without being distracted by the environment. Pt returned to his room via w/c, up in w/c post tx, call light in reach and all needs met. Start Time: 12:00 Stop Time: 13:00 Total Billed Treatment Time: 60 Total Billed Treatment 1, GRP JAMESON LIU OT Apr 29, 2022 13:11
[2022-04-29] MEDS: HYDROmorphone 2 MG/ML VIAL (DILAUDID) IV PRN (14:38)
[2022-04-29 19:53] VITALS: BP 126/59
[2022-04-30 05:56] LABS: BASOPHILS # (AUTO) 0.1 10^3/uL (0.0-0.1); BASOPHILS % (AUTO) 1 % (0-10); EOSINOPHILS # (AUTO) 0.3 10^3/uL (0.0-0.3); EOSINOPHILS % (AUTO) 5 % (0-10); HEMATOCRIT 38 % (40-54); HEMOGLOBIN 12.2 g/dL (13.3-17.7); LYMPHOCYTES # (AUTO) 1.5 10^3/uL (1.0-4.0); LYMPHOCYTES % (AUTO) 27 % (12-44); MEAN CORPUSCULAR HEMOGLOBIN 37 pg (25-34); MEAN CORPUSCULAR HGB CONC 32 g/dL (32-36); MEAN CORPUSCULAR VOLUME 113 fL (80-99); MEAN PLATELET VOLUME 9.3 fL (9.0-12.2); MONOCYTES # (AUTO) 0.6 10^3/uL (0.0-1.0); MONOCYTES % (AUTO) 10 % (0-12); NEUTROPHILS # (AUTO) 3.2 10^3/uL (1.8-7.8); NEUTROPHILS % (AUTO) 57 % (42-75); PLATELET COUNT 399 10^3/uL (130-400); WHITE BLOOD COUNT 5.7 10^3/uL (4.3-11.0)
[2022-04-30 06:01] LABS: ALBUMIN 3.4 GM/DL (3.2-4.5)
[2022-04-30 06:02] LABS: POTASSIUM 4.8 MMOL/L (3.6-5.0)
[2022-04-30 06:03] LABS: CALCIUM 9.6 MG/DL (8.5-10.1)
[2022-04-30 06:04] LABS: TOTAL PROTEIN 6.8 GM/DL (6.4-8.2)
[2022-04-30 06:06] LABS: BILIRUBIN,TOTAL 0.5 MG/DL (0.1-1.0)
[2022-04-30 06:08] LABS: CREATININE SERUM 0.62 MG/DL (0.60-1.30)
--- NOTE | 2022-04-30 06:14 | PM&R Progress Note ---
Subjective HPI/CC On Admission Date Seen by Provider: Apr 30, 2022 Time Seen by Provider: 12:30 Subjective/Events-last exam 04/30/2022: Pt having no new issues Changed his dressing yesterday and will do that this afternoon Doing well Bowels moved on 04/2704/29/2022: Patient doing much better Less pain Sleeping soundly currently 04/28/2022: Patient doing a lot better Change Dilaudid to only once a day since he was taking it every 4 hours alternating with oxycodone Dressing changes will be maintained 04/27/2022: Pt doing pretty well Pt has a lot of gas pain, Simethicone ordered Pain control during dressing changes is provided 04/26/2022: Pt has no complaints Dilaudid given prior to dressing change No other concerns 04/25/2022: Pt is doing well Dressing changes done by nurse and wound care Dilaudid given before dressing changes 04/24/2022: Pt is doing about the same Bowels are moving [facility] will be changing the dressing every other day and the rehab nurses will do that every other 04/23/2022: Patient doing about the same Wound care change requires Dilaudid prior to Dysphagia continues Bowels are moving 04/22/2022: Patient doing well Receiving Dilaudid 1 hour before dressing changes Overall doing pretty well Working on swallowing with barium swallow 04/21/2022: Patient doing pretty well Bowels moved yesterday Decreasing Dilaudid use Nystatin powder helpful Review of Systems General: Fatigue, Malaise Objective Exam Vital Signs Vital Signs Date Time Temp Pulse Resp B/P (MAP) Pulse Ox O2 Delivery O2 Flow Rate FiO2 04/30/22 09:10 Room Air 04/30/22 07:17 36.4 87 18 114/57 (76) 93 Capillary Refill : General Appearance: No Apparent Distress, WD/WN, Chronically ill, Thin HEENT: PERRL/EOMI, Normal ENT Inspection, Pharynx Normal Neck: Normal Inspection, Non Tender, Supple Respiratory: Chest Non Tender, No Accessory Muscle Use, No Respiratory Distress Cardiovascular: Regular Rate, Rhythm, No JVD Gastrointestinal: Normal Bowel Sounds, No Organomegaly, No Pulsatile Mass, Non Tender, Soft Back: Normal Inspection, No CVA Tenderness, No Vertebral Tenderness Extremity: Normal Capillary Refill, Other (Bilateral lower amputations, dressing clean and intact) Neurologic/Psychiatric: Alert, Oriented x3, No Motor/Sensory Deficits, Normal Mood/Affect, 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 FIM Transfers Therapy Code Descriptions/Definitions Functional [place] Measure: 0=Not Assessed/NA 4=Minimal Assistance 1=Total Assistance 5=Supervision or Setup 2=Maximal Assistance 6=Modified [place] 3=Moderate Assistance 7=Complete IndependenceSCALE: Activities may be completed with or without assistive devices. 7-Wmbqkdqpnv-hfeknxr completes the activity by him/herself with no assistance from a helper. 5-Set-up or Clean-up Assistance-helper sets up or cleans up; patient completes activity. [place] assists only prior to or following the activity. 4-Supervision or Touching Assistance-helper provides verbal cues and/or touching/steadying and/or contact guard assistance as patient completes activity. Assistance may be provided throughout the activity or intermittently. 3-Partial/Moderate Assistance-helper does LESS THAN HALF the effort. [place] lifts, holds or supports trunk or limbs, but provides less than half the effort. 2-Substantial/Maximal Assistance-helper does MORE THAN HALF the effort. [place] lifts or holds trunk or limbs and provides more than half the effort. 8-Mwawyqryn-eoqpuc does ALL the effort. Patient does none of the effort to complete the activity. Or, the assistance of 2 or more helpers is required for the patient to complete the activity. If activity was not attempted, code reason: 7-Patient Refused. 9-Not Applicable-not attempted and the patient did not perform the activity before the current illness, exacerbation or injury. 10-Not Attempted due to Environmental Limitations-(lack of equipment, weather restraints, etc.). 88-Not Attempted due to Medical Conditions or Safety Concerns. Roll Left to Right (QC): 6 Sit to Lying (QC): 6 Sit to Stand (QC): 88 Chair/Sfk-pf-Rjymm Xfer(QC): 3 Car Transfer (QC): 88 Gait Training Does the Patient Walk?: No and Walking Goal NOT indicated Walk 10 feet (QC): 9 Walk 50 ft with 2 Turns(QC): 9 Walk 150 ft (QC): 9 Walking 10ft/uneven surface-QC: 9 Wheelchair Training Does the Pt Use a Wheelchair?: Yes Wheel 50 ft with 2 turns (QC): 6 Wheel 150 ft (QC): 6 Type of Wheelchair: Manual Stair Training 1 Step (curb) (QC): 9 4 Steps (QC): 9 12 Steps (QC): 9 Balance Picking up an Object (QC): 9 ADL-Treatment Eating (QC): 6 Oral Hygiene (QC): 9 Shower/Bathe Self (QC): 5 (set up at bed level) Upper Body Dressing (QC): 5 (setup at bed level) Lower Body Dressing (QC): 5 (setup at bed level) On/Off Footwear (QC): 88 Toileting Hygiene (QC): 5 (urinal at bed level) Toilet Transfer (QC): 3 (Min A with sliding board transfer to drop arm BSC. V/c's for sequencing) Assessment/Plan Assessment and Plan Assess & Plan/Chief Complaint Assessment: Bilateral BKA's Severe PAD Smoker Severe pain post op Plan: Pain control Monitor labs 04/21/2022: Pain control Monitor bm 04/22/2022: Swallow eval 04/23/2022: Monitor closely Swallow eval 04/24/2022: Complete abx Dressing change 04/25/2022: Monitor closely Supportive care 04/26/2022: Monitor closely Supportive care 04/27/2022: Pain control Dressing changes daily 04/28/2022: Decrease Dilaudid to only once daily with dressing changes 04/29/2022: Monitor closely 04/30/2022: Pain control (1) S/P bilateral below knee amputation ATIF LIND DO Apr 30, 2022 06:14
[2022-04-30 07:17] VITALS: BP 114/57
[2022-04-30] MEDS: GABAPENTIN 100 MG (NEURONTIN) CAP PO SCH ×4 (08:11→20:20)
[2022-04-30] MEDS: MICONAZOLE 2% POWDER (DESENEX AF) 90 GM TOP SCH ×2 (08:12→20:19)
[2022-04-30] MEDS: HYPOCHLOROUS ACID/NaCl (VASHE) 250 ML IR PRN (08:13)
[2022-04-30] MEDS: DOCUSATE SODIUM 100 MG (COLACE) CAP PO SCH ×2 (08:18→20:20)
[2022-04-30] MEDS: polyethylene glycoL POWDER 17 GM (MIRALAX) PACK PO SCH ×2 (08:18→20:20)
[2022-04-30] MEDS: SENNA W/DOCUSATE (SENOKOT S) TABLET PO SCH ×2 (08:18→20:20)
[2022-04-30] MEDS: ONDANSETRON 4 MG (ZOFRAN) ORAL DISSOLVE TAB PO PRN (09:51)
--- NOTE | 2022-04-30 11:05 | Occupational Ther Daily Note ---
OT Current Status-Daily Note Subjective Pt sitting in bed, on hold on the phone with disability services upon OT arrival, but agreeable to tx. Pt requested bed level activities so he would remain on hold and not lose his spot in line. Mental Status/Objective Patient Orientation: Person, Place, Situation ADL-Treatment Therapy Code Descriptions/Definitions Functional [place] Measure: 0=Not Assessed/NA 4=Minimal Assistance 1=Total Assistance 5=Supervision or Setup 2=Maximal Assistance 6=Modified [place] 3=Moderate Assistance 7=Complete IndependenceSCALE: Activities may be completed with or without assistive devices. 9-Htmnfmqype-qmyotra completes the activity by him/herself with no assistance from a helper. 5-Set-up or Clean-up Assistance-helper sets up or cleans up; patient completes activity. [place] assists only prior to or following the activity. 4-Supervision or Touching Assistance-helper provides verbal cues and/or touching/steadying and/or contact guard assistance as patient completes activity. Assistance may be provided throughout the activity or intermittently. 3-Partial/Moderate Assistance-helper does LESS THAN HALF the effort. [place] lifts, holds or supports trunk or limbs, but provides less than half the effort. 2-Substantial/Maximal Assistance-helper does MORE THAN HALF the effort. [place] lifts or holds trunk or limbs and provides more than half the effort. 1-Xhqtamrdw-tkhmwp does ALL the effort. Patient does none of the effort to complete the activity. Or, the assistance of 2 or more helpers is required for the patient to complete the activity. If activity was not attempted, code reason: 7-Patient Refused. 9-Not Applicable-not attempted and the patient did not perform the activity before the current illness, exacerbation or injury. 10-Not Attempted due to Environmental Limitations-(lack of equipment, weather restraints, etc.). 88-Not Attempted due to Medical Conditions or Safety Concerns. Eating (QC): 6 Oral Hygiene (QC): 9 Shower/Bathe Self (QC): 5 (sponge bath at bed level) Upper Body Dressing (QC): 5 (set up at bed level) Lower Body Dressing (QC): 5 (set up at bed level) On/Off Footwear: 88 Other Treatment Pt remained in bed throughout tx. He completed sponge bath and bathing, and then he participated in UE exercises to increase UE strength, core strength and activity tolerance needed for w/c mobility and self-care tasks. He completed 20 reps of the following exercises with the blue Theraband (heavy resistance): horizontal abduction, tricep extensions, shoulder flexion, and external rotations. He completed 15 reps of the following exercises with 5lb dumbbells: bicep curls, tricep extensions, alternating shoulder flexion, crunches with alternating knee taps. He then placed the bed in supine and completed 10 sit ups with alternating knee taps. Post tx, pt returned bed to seated position, call light in reach and all needs met. Education OT Patient Education: Correct positioning, Energy conservation, Exercise program, Progress toward Goal/Update tx plan, Purpose of tx/functional activities, Rehab process Teaching Recipient: Patient Teaching Methods: Demonstration, Discussion Response to Teaching: Verbalize Understanding, Return Demonstration OT Disease Education Specialist Goals Disease Education Specialist Goals Time Frame: May 10, 2022 Eating (QC): 6 Oral Hygiene (QC): 9 Toileting Hygiene (QC): 6 Shower/Bathe Self (QC): 6 (sponge bath) Upper Body Dressing (QC): 6 Lower Body Dressing (QC): 6 On/Off Footwear (QC): 88 Additional Goals: 1-Demonstrate ADL Tasks, 2-Verbalize Understanding, 3-ImproveStrength/Bronson 1=Demonstrate adherence to instructed precautions during ADL tasks. 2=Patient will verbalize/demonstrate understanding of assistive devices/modifications for ADL. 3=Patient will improve strength/tolerance for activity to enable patient to perform ADL's. OT Education/Plan Problem List/Assessment Assessment: Decreased Activ Tolerance, Decreased UE Strength Discharge Recommendations Plan/Recommendations: Continue POC Treatment Plan/Plan of Care Patient would benefit from OT for education, treatment and training to promote independence in ADL's, mobility, safety and/or upper extremity function for ADL's. Plan of Care: ADL Retraining, Functional Mobility, Group Exercise/Act as Ind, UE Funct Exercise/Act Treatment Duration: May 10, 2022 Frequency: Modified Program (IRF) (10/05) Estimated Hrs Per Day: 1.5 hours per day (60-90 mins per day) Agreement: Yes Rehab Potential: Good Time/GCodes Start Time: 10:00 Stop Time: 11:00 Total Time Billed (hr/min): 60 Billed Treatment Time 1, ADL 2 (30'), Ex 2 (30') JAMESON LIU OT Apr 30, 2022 11:05
--- NOTE | 2022-04-30 11:56 | Physical Therapy Daily Note ---
PT Daily Note-Current Subjective Patient in bed pre tx, agrees to PT, has unrated pain in both legs. Patient has an IV in his left hand that is in a tender spot and is not actually in his hand very well, nurse is aware. Appearance Patient in bed post tx with nurse call, phone, tray, all needs met. Mental Status Patient Orientation: Normal For Age Transfers SCALE: Activities may be completed with or without assistive devices. 0-Zgcifaidci-wjlsonq completes the activity by him/herself with no assistance from a helper. 5-Set-up or Clean-up Assistance-helper sets up or cleans up; patient completes activity. [place] assists only prior to or following the activity. 4-Supervision or Touching Assistance-helper provides verbal cues and/or touching/steadying and/or contact guard assistance as patient completes activity. Assistance may be provided throughout the activity or intermittently. 3-Partial/Moderate Assistance-helper does LESS THAN HALF the effort. [place] lifts, holds or supports trunk or limbs, but provides less than half the effort. 2-Substantial/Maximal Assistance-helper does MORE THAN HALF the effort. [place] lifts or holds trunk or limbs and provides more than half the effort. 3-Diklumval-hzhacp does ALL the effort. Patient does none of the effort to complete the activity. Or, the assistance of 2 or more helpers is required for the patient to complete the activity. If activity was not attempted, code reason: 7-Patient Refused. 9-Not Applicable-not attempted and the patient did not perform the activity before the current illness, exacerbation or injury. 10-Not Attempted due to Environmental Limitations-(lack of equipment, weather restraints, etc.). 88-Not Attempted due to Medical Conditions or Safety Concerns. Roll Left & Right (QC): 6 Sit to Lying (QC): 6 Lying to Sitting/Side of Bed(Q: 6 Chair/Jtp-sv-Asoej Xfer(QC): 4 Weight Bearing Non Weight Bearing Non Weight Bearing Wheelchair Training Does the Pt Use a Wheelchair?: Yes Wheel 50 ft with 2 turns (QC): 6 Wheel 150 ft (QC): 6 Type of Wheelchair: Manual over 1999', practiced ramps, sidewalks, inclines, outside Exercises Seated Therapy Exercises: Chair press-ups, Hip flexion, Hip abd/add (with ball and RTB) Seated Reps: 20 (2 sets) LAQ alternating for 5 min Treatments bed mobility and transfers, LE strengthening, WC mobility Assessment Current Status: Fair Progress improving transfers PT Short Term Goals Short Term Goals Time Frame: May 04, 2022 Roll Left & Right: 6 Sit to lyin Lying to sitting on side of be: 6 Sit to stand: 6 Chair/jjq-vh-agnni transfer: 4 Toilet transfer: 4 Car transfer: 4 Wheel 50ft w/2 turns: 6 Wheel 150 feet: 6 Type: Manual PT Lettuce Cutter Goals Custodial Goals PT Lettuce Cutter Goals Time Frame: May 11, 2022 Roll Left & Right (QC): 6 Sit to Lying (QC): 6 Lying-Sitting on Side/Bed(QC): 6 Sit to Stand (QC): 9 Chair/Dcy-wx-Gpibq Xfer(QC): 6 Toilet Transfer (QC): 6 Car Transfer (QC): 6 Does the Patient Walk: No and Walking Goal NOT indicated Walk 10 feet (QC): 9 Walk 50ft with 2 Turns (QC): 9 Walk 150 ft (QC): 9 Walking 10ft on Uneven Surface: 9 1 Step (curb) (QC): 9 4 Steps (QC): 9 12 Steps (QC): 9 Picking up an Object (QC): 9 Does the Pt use WC or Scooter?: Yes Wheel 50 feet with 2 turns (QC: 6 Type: Manual Wheel 150 feet: 6 Type: Manual PT Plan Problem List Problem List: Activity Tolerance, Functional Strength, Safety, Balance, Transfer, Bed Mobility, ROM Treatment/Plan Treatment Plan: Continue Plan of Care Treatment Plan: Bed Mobility, Education, Functional Activity Bronson, Functional Strength, Group Therapy, Safety, Therapeutic Exercise, Transfers Treatment Duration: May 11, 2022 Frequency: At least 5 of 7 days/Wk (IRF) Estimated Hrs Per Day: 1.5 hours per day Patient and/or Family Agrees t: Yes Safety Risks/Education Patient Education: Transfer Techniques, Correct Positioning, W/C Management, Safety Issues Teaching Recipient: Patient Teaching Methods: Demonstration, Discussion Response to Teaching: Reinforcement Needed Time/GCodes Time In: 1100 Time Out: 1200 Total Billed Treatment Time: 60 Total Billed Treatment 1 visit EX 20' FA 40' JUAN RAMON HEARD PT Apr 30, 2022 11:56
--- NOTE | 2022-04-30 13:20 | Occupational Ther Daily Note ---
OT Current Status-Daily Note Subjective Pt sitting in bed eating lunch and still on hold with disability services upon OT arrival, pt agreeable to tx but requests bedside activities to continue to hold place in line. Mental Status/Objective Patient Orientation: Person, Place, Situation ADL-Treatment Therapy Code Descriptions/Definitions Functional [place] Measure: 0=Not Assessed/NA 4=Minimal Assistance 1=Total Assistance 5=Supervision or Setup 2=Maximal Assistance 6=Modified [place] 3=Moderate Assistance 7=Complete IndependenceSCALE: Activities may be completed with or without assistive devices. 3-Vpusizdjam-jvamfrt completes the activity by him/herself with no assistance from a helper. 5-Set-up or Clean-up Assistance-helper sets up or cleans up; patient completes activity. [place] assists only prior to or following the activity. 4-Supervision or Touching Assistance-helper provides verbal cues and/or touching/steadying and/or contact guard assistance as patient completes activity. Assistance may be provided throughout the activity or intermittently. 3-Partial/Moderate Assistance-helper does LESS THAN HALF the effort. [place] lifts, holds or supports trunk or limbs, but provides less than half the effort. 2-Substantial/Maximal Assistance-helper does MORE THAN HALF the effort. [place] lifts or holds trunk or limbs and provides more than half the effort. 8-Zlvedkagm-uegumc does ALL the effort. Patient does none of the effort to complete the activity. Or, the assistance of 2 or more helpers is required for the patient to complete the activity. If activity was not attempted, code reason: 7-Patient Refused. 9-Not Applicable-not attempted and the patient did not perform the activity before the current illness, exacerbation or injury. 10-Not Attempted due to Environmental Limitations-(lack of equipment, weather restraints, etc.). 88-Not Attempted due to Medical Conditions or Safety Concerns. Other Treatment Pt transferred to seated EOB, at level of supervision, to complete 15min seated on arm bike (30 hayes of resistance). This exercise focused on BUE strength and endurance, activity tolerance, and core stability. Frequent breaks taken to check phone. Pt returned to sitting in bed, independently Post tx, pt left in bed with call light in reach and all needs met. Education OT Patient Education: Energy conservation, Exercise program, Progress toward Goal/Update tx plan, Purpose of tx/functional activities, Rehab process Teaching Recipient: Patient Teaching Methods: Discussion Response to Teaching: Verbalize Understanding OT Professor Of Literature Goals Mcc Goals Time Frame: May 10, 2022 Eating (QC): 6 (met) Oral Hygiene (QC): 9 Toileting Hygiene (QC): 6 (not met) Shower/Bathe Self (QC): 6 (sponge bath) Upper Body Dressing (QC): 6 (not met) Lower Body Dressing (QC): 6 (not met) On/Off Footwear (QC): 88 Additional Goals: 1-Demonstrate ADL Tasks, 2-Verbalize Understanding, 3- ImproveStrength/Bronson 1=Demonstrate adherence to instructed precautions during ADL tasks. 2=Patient will verbalize/demonstrate understanding of assistive devices/modifications for ADL. 3=Patient will improve strength/tolerance for activity to enable patient to perform ADL's. OT Education/Plan Problem List/Assessment Assessment: Decreased Activ Tolerance, Decreased UE Strength Discharge Recommendations Plan/Recommendations: Continue POC Treatment Plan/Plan of Care Patient would benefit from OT for education, treatment and training to promote independence in ADL's, mobility, safety and/or upper extremity function for ADL's. Plan of Care: ADL Retraining, Functional Mobility, Group Exercise/Act as Ind, UE Funct Exercise/Act Treatment Duration: May 10, 2022 Frequency: Modified Program (IRF) (10/05) Estimated Hrs Per Day: 1.5 hours per day (60-90 mins per day) Agreement: Yes Rehab Potential: Good Time/GCodes Start Time: 13:00 Stop Time: 13:30 Total Time Billed (hr/min): 30 Billed Treatment Time 1, Ex 2 (30') JAMESON LIU OT Apr 30, 2022 13:20
[2022-04-30] MEDS: HYDROmorphone 2 MG/ML VIAL (DILAUDID) IV PRN (14:15)
--- NOTE | 2022-04-30 15:08 | Physical Therapy Daily Note ---
PT Daily Note-Current Subjective Patient sitting upright in bed upon PT arrival, agreeable to treatment. Patient reports he has been on hold to do an interview for food stamps since 8 am this morning. Mental Status Patient Orientation: Person, Place, Time, Situation Transfers SCALE: Activities may be completed with or without assistive devices. 8-Rjkctosdex-nvwwzba completes the activity by him/herself with no assistance from a helper. 5-Set-up or Clean-up Assistance-helper sets up or cleans up; patient completes activity. [place] assists only prior to or following the activity. 4-Supervision or Touching Assistance-helper provides verbal cues and/or valentin brittaney/steadying and/or contact guard assistance as patient completes activity. Assistance may be provided throughout the activity or intermittently. 3-Partial/Moderate Assistance-helper does LESS THAN HALF the effort. [place] lifts, holds or supports trunk or limbs, but provides less than half the effort. 2-Substantial/Maximal Assistance-helper does MORE THAN HALF the effort. [place] lifts or holds trunk or limbs and provides more than half the effort. 0-Qqxaseaeo-jbxkwx does ALL the effort. Patient does none of the effort to complete the activity. Or, the assistance of 2 or more helpers is required for the patient to complete the activity. If activity was not attempted, code reason: 7-Patient Refused. 9-Not Applicable-not attempted and the patient did not perform the activity before the current illness, exacerbation or injury. 10-Not Attempted due to Environmental Limitations-(lack of equipment, weather restraints, etc.). 88-Not Attempted due to Medical Conditions or Safety Concerns. Roll Left & Right (QC): 6 Sit to Lying (QC): 6 Lying to Sitting/Side of Bed(Q: 6 Chair/Cpr-zt-Jglxa Xfer(QC): 4 Weight Bearing Non Weight Bearing Non Weight Bearing Exercises Supine Ex: Quad Set, Glut sets, Resisted flex/ext, Straight leg raise, Hip abd /add Supine Reps: 40 Assessment Current Status: Fair Progress Patient tolerated treatment well. Requested to no leave the room as he has been on hold for 6 hours and does not want to have to call back. Patient performs LE therapeutic exercise as listed above. Patient in chair post treatment with all needs met, nursing notified, call light in reach. PT Short Term Goals Short Term Goals Time Frame: May 04, 2022 Roll Left & Right: 6 Sit to lyin Lying to sitting on side of be: 6 Sit to stand: 6 Chair/nep-gf-gkxxm transfer: 4 Toilet transfer: 4 Car transfer: 4 Wheel 50ft w/2 turns: 6 Wheel 150 feet: 6 Type: Manual PT Half-Way Goals Automatic Print Developer Goals PT Automatic Print Developer Goals Time Frame: May 11, 2022 Roll Left & Right (QC): 6 Sit to Lying (QC): 6 Lying-Sitting on Side/Bed(QC): 6 Sit to Stand (QC): 9 Chair/Emy-xw-Upzdy Xfer(QC): 6 Toilet Transfer (QC): 6 Car Transfer (QC): 6 Does the Patient Walk: No and Walking Goal NOT indicated Walk 10 feet (QC): 9 Walk 50ft with 2 Turns (QC): 9 Walk 150 ft (QC): 9 Walking 10ft on Uneven Surface: 9 1 Step (curb) (QC): 9 4 Steps (QC): 9 12 Steps (QC): 9 Picking up an Object (QC): 9 Does the Pt use WC or Scooter?: Yes Wheel 50 feet with 2 turns (QC: 6 Type: Manual Wheel 150 feet: 6 Type: Manual PT Plan Treatment/Plan Treatment Plan: Continue Plan of Care Treatment Plan: Bed Mobility, Education, Functional Activity [place]onson, Functional Strength, Group Therapy, Safety, Therapeutic Exercise, Transfers Treatment Duration: May 11, 2022 Frequency: At least 5 of 7 days/Wk (IRF) Estimated Hrs Per Day: 1.5 hours per day Patient and/or Family Agrees t: Yes Safety Risks/Education Patient Education: Reviewed Precautions Teaching Recipient: Patient Teaching Methods: Demonstration, Discussion Response to Teaching: Verbalize Understanding, Return Demonstration Time/GCodes Time In: 1330 Time Out: 1400 Total Billed Treatment Time: 30 Total Billed Treatment Visit, EX (2) KEITH PARKINSON PT Apr 30, 2022 15:08
[2022-04-30 20:43] VITALS: BP 109/63
--- NOTE | 2022-05-01 05:54 | PM&R Progress Note ---
Subjective HPI/CC On Admission Date Seen by Provider: May 01, 2022 Time Seen by Provider: 09:00 Subjective/Events-last exam 05/01/2022: Pt is doing pretty well Having a pain pill about every 12 hours now No other issues Discharge planned for tomorrow 04/30/2022: Pt having no new issues Changed his dressing yesterday and will do that this afternoon Doing well Bowels moved on 04/2704/29/2022: Patient doing much better Less pain Sleeping soundly currently 04/28/2022: Patient doing a lot better Change Dilaudid to only once a day since he was taking it every 4 hours alternating with oxycodone Dressing changes will be maintained 04/27/2022: Pt doing pretty well Pt has a lot of gas pain, Simethicone ordered Pain control during dressing changes is provided 04/26/2022: Pt has no complaints Dilaudid given prior to dressing change No other concerns 04/25/2022: Pt is doing well Dressing changes done by nurse and wound care Dilaudid given before dressing changes 04/24/2022: Pt is doing about the same Bowels are moving Emeli will be changing the dressing every other day and the rehab nurses will do that every other 04/23/2022: Patient doing about the same Wound care change requires Dilaudid prior to Dysphagia continues Bowels are moving 04/22/2022: Patient doing well Receiving Dilaudid 1 hour before dressing changes Overall doing pretty well Working on swallowing with barium swallow 04/21/2022: Patient doing pretty well Bowels moved yesterday Decreasing Dilaudid use Nystatin powder helpful Review of Systems Musculoskeletal: leg pain Objective Exam Vital Signs Vital Signs Date Time Temp Pulse Resp B/P (MAP) Pulse Ox O2 Delivery O2 Flow Rate FiO2 05/01/22 19:43 36.6 86 20 108/72 (84) 96 Room Air Capillary Refill : General Appearance: No Apparent Distress, WD/WN, Chronically ill, Thin HEENT: PERRL/EOMI, Normal ENT Inspection, Pharynx Normal Neck: Normal Inspection, Non Tender, Supple Respiratory: Chest Non Tender, No Accessory Muscle Use, No Respiratory Distress Cardiovascular: Regular Rate, Rhythm, No JVD Gastrointestinal: Normal Bowel Sounds, No Organomegaly, No Pulsatile Mass, Non Tender, Soft Back: Normal Inspection, No CVA Tenderness, No Vertebral Tenderness Extremity: Normal Capillary Refill, Other (Bilateral lower amputations, dressing clean and intact) Neurologic/Psychiatric: Alert, Oriented x3, No Motor/Sensory Deficits, Normal Mood/Affect, respiratory assistant II-XII Norm as Tested, Abnormal Gait (Can ambulate), Motor Weakness (Lower extremities) Skin: Normal Color, Warm/Dry Lymphatic: No Adenopathy Results/Procedures Lab Patient resulted labs reviewed. FIM Transfers Therapy Code Descriptions/Definitions Functional [place] Measure: 0=Not Assessed/NA 4=Minimal Assistance 1=Total Assistance 5=Supervision or Setup 2=Maximal Assistance 6=Modified [place] 3=Moderate Assistance 7=Complete IndependenceSCALE: Activities may be completed with or without assistive devices. 8-Pevthswqvl-alpkksd completes the activity by him/herself with no assistance from a helper. 5-Set-up or Clean-up Assistance-helper sets up or cleans up; patient completes activity. [place] assists only prior to or following the activity. 4-Supervision or Touching Assistance-helper provides verbal cues and/or touching/steadying and/or contact guard assistance as patient completes activity. Assistance may be provided throughout the activity or intermittently. 3-Partial/Moderate Assistance-helper does LESS THAN HALF the effort. [place] lifts, holds or supports trunk or limbs, but provides less than half the effort. 2-Substantial/Maximal Assistance-helper does MORE THAN HALF the effort. [place] lifts or holds trunk or limbs and provides more than half the effort. 9-Croqolqot-letsxa does ALL the effort. Patient does none of the effort to co mplete the activity. Or, the assistance of 2 or more helpers is required for the patient to complete the activity. If activity was not attempted, code reason: 7-Patient Refused. 9-Not Applicable-not attempted and the patient did not perform the activity before the current illness, exacerbation or injury. 10-Not Attempted due to Environmental Limitations-(lack of equipment, weather restraints, etc.). 88-Not Attempted due to Medical Conditions or Safety Concerns. Roll Left to Right (QC): 6 Sit to Lying (QC): 6 Sit to Stand (QC): 88 Chair/Rer-gc-Hcvwv Xfer(QC): 4 Car Transfer (QC): 88 Gait Training Does the Patient Walk?: No and Walking Goal NOT indicated Walk 10 feet (QC): 9 Walk 50 ft with 2 Turns(QC): 9 Walk 150 ft (QC): 9 Walking 10ft/uneven surface-QC: 9 Wheelchair Training Does the Pt Use a Wheelchair?: Yes Wheel 50 ft with 2 turns (QC): 6 Wheel 150 ft (QC): 6 Type of Wheelchair: Manual Stair Training 1 Step (curb) (QC): 9 4 Steps (QC): 9 12 Steps (QC): 9 Balance Picking up an Object (QC): 9 ADL-Treatment Eating (QC): 6 Oral Hygiene (QC): 9 Shower/Bathe Self (QC): 5 (sponge bath at bed level) Upper Body Dressing (QC): 5 (set up at bed level) Lower Body Dressing (QC): 5 (set up at bed level) On/Off Footwear (QC): 88 Toileting Hygiene (QC): 5 (urinal at bed level) Toilet Transfer (QC): 3 (Min A with sliding board transfer to drop arm BSC. V/c's for sequencing) Assessment/Plan Assessment and Plan Assess & Plan/Chief Complaint Assessment: Bilateral BKA's Severe PAD Smoker Severe pain post op Plan: Pain control Monitor labs 04/21/2022: Pain control Monitor bm 04/22/2022: Swallow eval 04/23/2022: Monitor closely Swallow eval 04/24/2022: Complete abx Dressing change 04/25/2022: Monitor closely Supportive care 04/26/2022: Monitor closely Supportive care 04/27/2022: Pain control Dressing changes daily 04/28/2022: Decrease Dilaudid to only once daily with dressing changes 04/29/2022: Monitor closely 04/30/2022: Pain control 05/01/2022: Pain control (1) S/P bilateral below knee amputation ATIF LIND DO May 01, 2022 05:54
[2022-05-01 08:00] VITALS: BP 108/57
[2022-05-01] MEDS: SENNA W/DOCUSATE (SENOKOT S) TABLET PO SCH ×2 (09:03→19:55)
[2022-05-01] MEDS: DOCUSATE SODIUM 100 MG (COLACE) CAP PO SCH ×2 (09:03→19:55)
[2022-05-01] MEDS: polyethylene glycoL POWDER 17 GM (MIRALAX) PACK PO SCH ×2 (09:03→19:55)
--- NOTE | 2022-05-01 09:03 | Physical Therapy Daily Note ---
PT Daily Note-Current Subjective Pt.in bed on arrival, reluctantly agrees to Rx. Shares that he is a little worried about DC plans . Pt. lives in mobile with little to no AC, has no bed and will need carried into the trailer secondary to 3-4 steps. Pt. and lost all their furniture when they were previously evicted per pt. Pt. refuses to attempt car TRF stating he will never be getting in out of a vehicle. Pain Location: No Pain Reported Mental Status Patient Orientation: Normal For Age Attachments: Other-See Comments ([place] wraps bilat distal residual limbs) Transfers SCALE: Activities may be completed with or without assistive devices. 3-Cysdcgmkzx-bkupnec completes the activity by him/herself with no assistance from a helper. 5-Set-up or Clean-up Assistance-helper sets up or cleans up; patient completes activity. [place] assists only prior to or following the activity. 4-Supervision or Touching Assistance-helper provides verbal cues and/or touching/steadying and/or contact guard assistance as patient completes activity. Assistance may be provided throughout the activity or intermittently. 3-Partial/Moderate Assistance-helper does LESS THAN HALF the effort. [place] lifts, holds or supports trunk or limbs, but provides less than half the effort. 2-Substantial/Maximal Assistance-helper does MORE THAN HALF the effort. [place] lifts or holds trunk or limbs and provides more than half the effort. 8-Stfeabqyp-foikiv does ALL the effort. Patient does none of the effort to complete the activity. Or, the assistance of 2 or more helpers is required for the patient to complete the activity. If activity was not attempted, code reason: 7-Patient Refused. 9-Not Applicable-not attempted and the patient did not perform the activity before the current illness, exacerbation or injury. 10-Not Attempted due to Environmental Limitations-(lack of equipment, weather restraints, etc.). 88-Not Attempted due to Medical Conditions or Safety Concerns. Roll Left & Right (QC): 6 Sit to Lying (QC): 6 Lying to Sitting/Side of Bed(Q: 6 Sit to Stand (QC): 9 Chair/Qbv-uy-Mlkre Xfer(QC): 5 Toilet Transfer (QC): 5 Car Transfer (QC): 7 pt. requires set up only for TRF bed to w/c , same as for BSC TRF. Weight Bearing Non Weight Bearing Non Weight Bearing Gait Training Walk 10 feet (QC): 9 Walk 50 ft with 2 Turns(QC): 9 Walk 150 ft (QC): 9 Walking 10ft/uneven surface-QC: 9 Wheelchair Training Does the Pt Use a Wheelchair?: Yes Wheel 50 ft with 2 turns (QC): 6 Wheel 150 ft (QC): 6 Type of Wheelchair: Manual fig 8s, 360 deg ZTR turns, 600 plus feet ramps and straight aways, all with very good control even in tight areas, backs with good control as well, manages all aspects of brakes and arm rests indep Stair Training does not occur Balance Picking up an Object (QC): 5 Exercises Supine Ex: Quad Set, Rolling, Glut sets, Short Arc Quads, Straight leg raise, Hip abd/add Supine Reps: 20 Seated Therapy Exercises: Long arc quads, Hip flexion Seated Reps: 12 Assessment Current Status: Good Progress bed mob, sup and sit ex, TRFs bed w/c and BSC SBA to min PT Short Term Goals Short Term Goals Time Frame: May 04, 2022 Roll Left & Right: 6 Sit to lyin Lying to sitting on side of be: 6 Sit to stand: 6 Chair/khp-ag-rhtrv transfer: 4 Toilet transfer: 4 Car transfer: 4 Wheel 50ft w/2 turns: 6 Wheel 150 feet: 6 Type: Manual PT Alf Goals Alf Goals PT Alf Goals Time Frame: May 11, 2022 Roll Left & Right (QC): 6 Sit to Lying (QC): 6 Lying-Sitting on Side/Bed(QC): 6 Sit to Stand (QC): 9 Chair/Teh-ab-Mrhno Xfer(QC): 6 Toilet Transfer (QC): 6 Car Transfer (QC): 6 Does the Patient Walk: No and Walking Goal NOT indicated Walk 10 feet (QC): 9 Walk 50ft with 2 Turns (QC): 9 Walk 150 ft (QC): 9 Walking 10ft on Uneven Surface: 9 1 Step (curb) (QC): 9 4 Steps (QC): 9 12 Steps (QC): 9 Picking up an Object (QC): 9 Does the Pt use WC or Scooter?: Yes Wheel 50 feet with 2 turns (QC: 6 Type: Manual Wheel 150 feet: 6 Type: Manual PT Plan Treatment/Plan Treatment Plan: Continue Plan of Care Treatment Plan: Bed Mobility, Education, Functional Activity [place], Functional Strength, Group Therapy, Safety, Therapeutic Exercise, Transfers Treatment Duration: May 11, 2022 Frequency: At least 5 of 7 days/Wk (IRF) Estimated Hrs Per Day: 1.5 hours per day Patient and/or Family Agrees t: Yes Safety Risks/Education Patient Education: Transfer Techniques, W/C Management, Disease Process, Safety Issues Teaching Recipient: Patient Teaching Methods: Demonstration, Discussion Response to Teaching: Verbalize Understanding, Return Demonstration, Reinforcement Needed Time/GCodes Time In: 800 Time Out: 900 Total Billed Treatment Time: 60 Total Billed Treatment 1,FA35m,EX15m,WC10m JEANE EDDY MEDICAL RECEPTIONIST May 01, 2022 09:03
[2022-05-01] MEDS: GABAPENTIN 100 MG (NEURONTIN) CAP PO SCH ×3 (09:05→21:18)
[2022-05-01] MEDS: MICONAZOLE 2% POWDER (DESENEX AF) 90 GM TOP SCH ×2 (09:08→21:19)
--- NOTE | 2022-05-01 09:54 | Occupational Ther Daily Note ---
OT Current Status-Daily Note Subjective Pt seated in w/c, receiving meds from nursing upon OT arrival, agreeable to tx. Pt c/o pain in R groin region throughout tx, believing he either overstretched a muscle in PT earlier or has a hernia again. Mental Status/Objective Patient Orientation: Person, Place, Situation ADL-Treatment Therapy Code Descriptions/Definitions Functional [place] Measure: 0=Not Assessed/NA 4=Minimal Assistance 1=Total Assistance 5=Supervision or Setup 2=Maximal Assistance 6=Modified [place] 3=Moderate Assistance 7=Complete IndependenceSCALE: Activities may be completed with or without assistive devices. 4-Ctyympecln-hvqcxjc completes the activity by him/herself with no assistance from a helper. 5-Set-up or Clean-up Assistance-helper sets up or cleans up; patient completes activity. [place] assists only prior to or following the activity. 4-Supervision or Touching Assistance-helper provides verbal cues and/or touching/steadying and/or contact guard assistance as patient completes activity. Assistance may be provided throughout the activity or intermittently. 3-Partial/Moderate Assistance-helper does LESS THAN HALF the effort. [place] lifts, holds or supports trunk or limbs, but provides less than half the effort. 2-Substantial/Maximal Assistance-helper does MORE THAN HALF the effort. [place] lifts or holds trunk or limbs and provides more than half the effort. 6-Ujwxioqtj-luohyv does ALL the effort. Patient does none of the effort to complete the activity. Or, the assistance of 2 or more helpers is required for the patient to complete the activity. If activity was not attempted, code reason: 7-Patient Refused. 9-Not Applicable-not attempted and the patient did not perform the activity before the current illness, exacerbation or injury. 10-Not Attempted due to Environmental Limitations-(lack of equipment, weather restraints, etc.). 88-Not Attempted due to Medical Conditions or Safety Concerns. Eating (QC): 6 Oral Hygiene (QC): 9 Shower/Bathe Self (QC): 6 (seated in w/c at sink) Upper Body Dressing (QC): 6 (seated in w/c at sink) Lower Body Dressing (QC): 6 (seated in w/c at sink) On/Off Footwear: 88 Toileting Hygiene (QC): 6 (IND with urinal.) Other Treatment Pt wheeled to bathroom to complete sponge bath and dressing while seated in w/c, simulating his home routine. Pt educated on the importance of oral hygiene, but pt declined sponge brush and toothpaste saying he uses mouthwash ~3x/day at home. Pt wheeled to therapy gym to participate in exercises focused on strengthening BUE and core muscles needed for functional transfers and self-care tasks. Both armrests were removed and backrest was lowered on his w/c to further engage muscles needed for dynamic seated stability. He completed 15min seated on arm bike (35 hayes of resistance). He wheeled to parallel bars and completed 2x20 reps of both modified rows and chest presses using a dowel phi with resistance from black Theraband (heaviest resistance) followed by 2x10 reps of w/c pushups (armrests replaced for this exercise). Pt removed R armrest to henry sfer onto mat, no SB, and transferred to supine to complete 20 reps of overhead tricep extensions and horizontal abd/add, both with 5lb dumbbells. He transferred back into w/c and wheeled back to room, transferring into bed without a SB. Post tx, pt left in bed with call light in reach and all needs met. Education OT Patient Education: Correct positioning, Energy conservation, Exercise program, Modified ADL techniques, Progress toward Goal/Update tx plan, Purpose of tx/functional activities, Rehab process, Safety issues, W/C management Teaching Recipient: Patient Teaching Methods: Demonstration, Discussion Response to Teaching: Verbalize Understanding OT Half-Way Goals Half-Way Goals Time Frame: May 10, 2022 Eating (QC): 6 (met) Oral Hygiene (QC): 9 Toileting Hygiene (QC): 6 (met) Shower/Bathe Self (QC): 6 (sponge bath; met) Upper Body Dressing (QC): 6 (met) Lower Body Dressing (QC): 6 (met) On/Off Footwear (QC): 88 Additional Goals: 1-Demonstrate ADL Tasks, 2-Verbalize Understanding, 3- ImproveStrength/[place] 1=Demonstrate adherence to instructed precautions during ADL tasks. 2=Patient will verbalize/demonstrate understanding of assistive devices/modifications for ADL. 3=Patient will improve strength/tolerance for activity to enable patient to perform ADL's. OT Education/Plan Problem List/Assessment Assessment: Decreased Activ Tolerance, Decreased UE Strength Discharge Recommendations Plan/Recommendations: Continue POC Treatment Plan/Plan of Care Patient would benefit from OT for education, treatment and training to promote independence in ADL's, mobility, safety and/or upper extremity function for ADL's. Plan of Care: ADL Retraining, Functional Mobility, Group Exercise/Act as Ind, UE Funct Exercise/Act Treatment Duration: May 10, 2022 Frequency: Modified Program (IRF) (10/05) Estimated Hrs Per Day: 1.5 hours per day (60-90 mins per day) Agreement: Yes Rehab Potential: Good Time/GCodes Start Time: 09:00 Stop Time: 10:30 Total Time Billed (hr/min): 90 Billed Treatment Time 1, ADL 3 (40'), Ex 3 (50') JAMESON LIU OT May 01, 2022 09:54
--- NOTE | 2022-05-01 13:52 | Physical Therapy Daily Note ---
PT Daily Note-Current Subjective Pt. agrees to Rx. States he has already made arrangements for the PFD to meet him at his home to carry him into his mobile [facility]. pt is agreeable to Rx. Pain Location: No Pain Reported Mental Status Patient Orientation: Normal For Age Transfers SCALE: Activities may be completed with or without assistive devices. 0-Yjsgmemvmb-eyuglvo completes the activity by him/herself with no assistance from a helper. 5-Set-up or Clean-up Assistance-helper sets up or cleans up; patient completes activity. [place] assists only prior to or following the activity. 4-Supervision or Touching Assistance-helper provides verbal cues and/or touching/steadying and/or contact guard assistance as patient completes activity. Assistance may be provided throughout the activity or intermittently. 3-Partial/Moderate Assistance-helper does LESS THAN HALF the effort. [place] lifts, holds or supports trunk or limbs, but provides less than half the effort. 2-Substantial/Maximal Assistance-helper does MORE THAN HALF the effort. [place] lifts or holds trunk or limbs and provides more than half the effort. 1-Nspixirlp-pquabu does ALL the effort. Patient does none of the effort to complete the activity. Or, the assistance of 2 or more helpers is required for the patient to complete the activity. If activity was not attempted, code reason: 7-Patient Refused. 9-Not Applicable-not attempted and the patient did not perform the activity before the current illness, exacerbation or injury. 10-Not Attempted due to Environmental Limitations-(lack of equipment, weather restraints, etc.). 88-Not Attempted due to Medical Conditions or Safety Concerns. Weight Bearing Non Weight Bearing Non Weight Bearing Balance Picking up an Object (QC): 6 (pt indep to safely p/u item from floor reaching over side of w/c) Exercises Supine Ex: Quad Set, Rolling, Glut sets, Short Arc Quads, Scooting, Straight leg raise, Hip abd/add Supine Reps: 12 Assessment Current Status: Good Progress PT Short Term Goals Short Term Goals Time Frame: May 04, 2022 Roll Left & Right: 6 Sit to lyin Lying to sitting on side of be: 6 Sit to stand: 6 Chair/xnd-zd-qgdck transfer: 4 Toilet transfer: 4 Car transfer: 4 Wheel 50ft w/2 turns: 6 Wheel 150 feet: 6 Type: Manual PT Diplomatic Interpreter/Translator Goals [facility] Goals PT [facility] Goals Time Frame: May 11, 2022 Roll Left & Right (QC): 6 Sit to Lying (QC): 6 Lying-Sitting on Side/Bed(QC): 6 Sit to Stand (QC): 9 Chair/Jjt-gc-Dtocv Xfer(QC): 6 Toilet Transfer (QC): 6 Car Transfer (QC): 6 Does the Patient Walk: No and Walking Goal NOT indicated Walk 10 feet (QC): 9 Walk 50ft with 2 Turns (QC): 9 Walk 150 ft (QC): 9 Walking 10ft on Uneven Surface: 9 1 Step (curb) (QC): 9 4 Steps (QC): 9 12 Steps (QC): 9 Picking up an Object (QC): 9 Does the Pt use WC or Scooter?: Yes Wheel 50 feet with 2 turns (QC: 6 Type: Manual Wheel 150 feet: 6 Type: Manual PT Plan Treatment/Plan Treatment Plan: Continue Plan of Care Treatment Plan: Bed Mobility, Education, Functional Activity [place], Functional Strength, Group Therapy, Safety, Therapeutic Exercise, Transfers Treatment Duration: May 11, 2022 Frequency: At least 5 of 7 days/Wk (IRF) Estimated Hrs Per Day: 1.5 hours per day Patient and/or Family Agrees t: Yes Safety Risks/Education Patient Education: Correct Positioning, Safety Issues Time/GCodes Time In: 1325 Time Out: 1355 Total Billed Treatment Time: 30 Total Billed Treatment 1,FA10m,EX20m JEANE EDDY TALENT MANAGER May 01, 2022 13:52
[2022-05-01] MEDS: HYDROmorphone 2 MG/ML VIAL (DILAUDID) IV PRN (15:23)
[2022-05-01] MEDS: HYPOCHLOROUS ACID/NaCl (VASHE) 250 ML IR PRN (15:33)
--- NOTE | 2022-05-01 17:42 | Wound Care Assessment ---
Wound Care Assessment Date Seen by Provider: May 01, 2022 Time Seen by Provider: 17:34 Chief Complaint Bilateral guillotine amputation BKA wounds HPI This unfortunate 41 year old male was admitted with gangrenous chronic wound of b/l feet. He subsequently underwent emergent guillotine BKA amputations. He was previously admitted to the hospital with toe amputations for arterial ulcers in past. Unfortunately, he failed to follow up as recommended with the wound care clinic. Alex lives in a trailer in [place] with his . 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 On admit Alex was found on plain film to have diffuse osseus demineralization and erosions of L. 4 metatarsal. He was also found on CTA to have bilateral arterial disease with complete occlusion of left superficial femoral and popliteal arteries. He did also have non-occlusive diffuse thrombus on bilateral venous studies. Alex was supposed to be on Xarelto as an outpatient and did not comply with taking this medication. Alex has a h/o smoking 2-3 ppd and drinking 1.7L of hard liquor daily. He states that he is now smoking "only" 1ppd and drinking 3 8oz glasses of liquor daily. Alex does not have a vehicle for transportation to wound care follow up. Transportation with the care van is arranged but as of yet he does not have a wheelchair ramp to get out of his house to the van. He does state that if this does not occur in next 2 weeks, he will be moving. Home health has not been arranged as his financial assistance has not yet been approved. For the same reason he cannot yet be scheduled for a follow up in our clinic. He will need weekly follow up in clinic along with 1-2 times per week for home health with his current wounds. Even with Home health he will need to do daily dressing changes himself (or have a family memeber do for him). The staff will allow him to change his dressings himself tomorrow to assure he can do so. If home health is not obtained prior to d/c home, he will need a means of obtaining dressings. Nursing staff will provide some supplies on discharge and he will need supplies ordered through local DME. He states that he cannot afford dressings on his own. Alex does also have PEM (see albumin from admit) and is being supplemented with Ensure. He notes that he has lost significant weight in the last year. His wound bed has improved with dressing changes during his stay. Alex has significant pain which has improved throughout his stay. He pain is the reason wound vac has not been pursued. He did not tolerate wound vac on last admission and declines at this visit as well. I am not optimistic about Alex's healing with either revision and closure (high risk of flap failure) or with regular weekly wound care (due to poor vascular supply and follow up/infection concerns). Alex has significant financial and transportation issues that will hinder his follow up care. Alex will also need to follow up with both surgery and his primary physician (beatriz. in the chance he is unable to get financial assistance prior to follow up with myself in 2 weeks). Past Medical History: Admits Deep Vein Thrombosis, Admits Peripheral Artery Disease Smoking Status: Current Everyday Smoker Exam Vital Signs Date Time Temp Pulse Resp B/P (MAP) Pulse Ox O2 Delivery O2 Flow Rate FiO2 05/01/22 08:00 36.1 79 16 108/57 (74) 97 Room Air Capillary Refill : General Appearance: WD/WN, no apparent distress Neurologic/Psychiatric: alert, normal mood/affect, oriented x 3 Wound not assessed today. Time spent in counselin minutes Assessment/Plan/Dx Assessment: 1. 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 Cellulitis-resolved 3. Alcohol abuse 4. Heavy tobacco abuse 5. Severe PAD 6. Venous disease with non-occlusive thrombus 7. Lymphedema 8. PEM 9. Noncompliance with medications, follow up and lifestyle changes Plan: 1. Cleanse daily with Vashe. Xeroform to wound bed with ABD, kerlix and secure with XANDER. Change daily and prn for saturation. These dressings will need called in to local DME if home health not arranged. 2. Per primary 3. Counseled on cessation 4. Counseled on cessation 5. Counseled on risks of further disease, failure of healing. Patient verbalizes understanding 6. Compliance with anticoagulation encouraged 7. XANDER wrap 8. Protein supplementation 9. This case is a complex social situation. I am not optimistic wound healing can be obtained with current social setting/living environment. I plan to see Alex in follow up in 2 weeks and hope that home health can be arranged as well. Even with these visits arranged, with his transportation concerns, there is a strong likelihood Alex will lack close follow up. care home care denied. HARLEEN SMITH MD May 01, 2022 17:42
[2022-05-01 19:43] VITALS: BP 108/72
[2022-05-02] MEDS ORDERED: GABA-486 PO (06:50)
[2022-05-02] MEDS ORDERED: OXC5T PO (06:50)
--- NOTE | 2022-05-02 06:51 | Discharge Summary ---
Diagnosis/Chief Complaint Date of Admission Apr 20, 2022 at 09:45 Date of Discharge Discharge Date: May 02, 2022 Discharge Diagnosis Assessment: Bilateral BKA's Severe PAD Smoker Severe pain post op Plan: Pain control Monitor labs 04/21/2022: Pain control Monitor bm 04/22/2022: Swallow eval 04/23/2022: Monitor closely Swallow eval 04/24/2022: Complete abx Dressing change 04/25/2022: Monitor closely Supportive care 04/26/2022: Monitor closely Supportive care 04/27/2022: Pain control Dressing changes daily 04/28/2022: Decrease Dilaudid to only once daily with dressing changes 04/29/2022: Monitor closely 04/30/2022: Pain control 05/01/2022: Pain control (1) S/P bilateral below knee amputation Discharge Summary Discharge Physical Examination Allergies: Coded Allergies: No Known Drug Allergies (Unverified , 08/04/21) He denies allergies to drugs and food, says he has seasonal allergies Vitals & I&Os Vital Signs Date Time Temp Pulse Resp B/P (MAP) Pulse Ox O2 Delivery O2 Flow Rate FiO2 05/02/22 13:10 37.1 70 16 103/63 99 Room Air General Appearance: Alert, Oriented X3, Cooperative Respiratory: Clear to Auscultation Cardiovascular: Regular Rate Psych/Mental Status: Mental Status NL Hospital Course Was the Problem List Reviewed?: Yes Uneventful hospital course. Patient was admitted s/p B/L BKA's and pain was an issue during dressing changes so Dilaudid was given 1 hour prior to dressing changes. Patient had no issues during stay he completed abx and BM regimen maintained. Labs remained stable. CLOF enabled him to return to living independently. Labs (last 24 hrs) Laboratory Tests 04/21/22 06:19: White Blood Count 5.6, Red Blood Count 2.89L, Hemoglobin 11.3L, Hematocrit 34L, Mean Corpuscular Volume 116H, Mean Corpuscular Hemoglobin 39H, Mean Corpuscular Hemoglobin Concent 34, Red Cell Distribution Width 12.8, Platelet Count 250, Mean Platelet Volume 9.1, Immature Granulocyte % (Auto) 1, Neutrophils (%) (Auto) 56, Lymphocytes (%) (Auto) 26, Monocytes (%) (Auto) 10, Eosinophils (%) (Auto) 7, Basophils (%) (Auto) 1, Neutrophils # (Auto) 3.2, Lymphocytes # (Auto) 1.5, Monocytes # (Auto) 0.6, Eosinophils # (Auto) 0.4H, Basophils # (Auto) 0.0, Immature Granulocyte # (Auto) 0.0, Sodium Level 137, Potassium Level 4.5, Chloride Level 105, Carbon Dioxide Level 24, Anion Gap 8, Blood Urea Nitrogen 6L , Creatinine 0.55L, Estimat Glomerular Filtration Rate 128, BUN/Creatinine Ratio 11, Glucose Level 96, Calcium Level 7.9L, Corrected Calcium 9.3, Total Bilirubin 0.2, Aspartate Amino Transf (AST/SGOT) 16, Alanine Aminotransferase (ALT/SGPT) 8, Alkaline Phosphatase 73, Total Protein 4.8L, Albumin 2.2L 04/30/22 05:35: White Blood Count 5.7, Red Blood Count 3.33L, Hemoglobin 12.2L, Hematocrit 38L, Mean Corpuscular Volume 113H, Mean Corpuscular Hemoglobin 37H, Mean Corpuscular Hemoglobin Concent 32, Red Cell Distribution Width 13.2, Platelet Count 399, Mean Platelet Volume 9.3, Immature Granulocyte % (Auto) 1, Neutrophils (%) (Auto) 57, Lymphocytes (%) (Auto) 27, Monocytes (%) (Auto) 10, Eosinophils (%) (Auto) 5, Basophils (%) (Auto) 1, Neutrophils # (Auto) 3.2, Lymphocytes # (Auto) 1.5, Monocytes # (Auto) 0.6, Eosinophils # (Auto) 0.3, Basophils # (Auto) 0.1, Immature Granulocyte # (Auto) 0.0, Sodium Level 136, Potassium Level 4.8, Chloride Level 101, Carbon Dioxide Level 24, Anion Gap 11, Blood Urea Nitrogen 12, Creatinine 0.62, Estimat Glomerular Filtration Rate 123, BUN/Creatinine Ratio 19, Glucose Level 98, Calcium Level 9.6, Corrected Calcium 10.1, Total Bilirubin 0.5, Aspartate Amino Transf (AST/SGOT) 23, Alanine Aminotransferase (ALT/SGPT) 22, Alkaline Phosphatase 81, Total Protein 6.8, Albumin 3.4 Pending Labs Laboratory Tests 04/21/22 06:19: White Blood Count 5.6, Red Blood Count 2.89, Hemoglobin 11.3, Hematocrit 34, Mean Corpuscular Volume 116, Mean Corpuscular Hemoglobin 39, Mean Corpuscular Hemoglobin Concent 34, Red Cell Distribution Width 12.8, Platelet Count 250, Mean Platelet Volume 9.1, Immature Granulocyte % (Auto) 1, Neutrophils (%) (Auto) 56, Lymphocytes (%) (Auto) 26, Monocytes (%) (Auto) 10, Eosinophils (%) (Auto) 7, Basophils (%) (Auto) 1, Neutrophils # (Auto) 3.2, Lymphocytes # (Auto) 1.5, Monocytes # (Auto) 0.6, Eosinophils # (Auto) 0.4, Basophils # (Auto) 0.0, Immature Granulocyte # (Auto) 0.0, Sodium Level 137, Potassium Level 4.5, Chloride Level 105, Carbon Dioxide Level 24, Anion Gap 8, Blood Urea Nitrogen 6, Creatinine 0.55, Estimat Glomerular Filtration Rate 128, BUN/Creatinine Ratio 11, Glucose Level 96, Calcium Level 7.9, Corrected Calcium 9.3, Total Bilirubin 0.2, Aspartate Amino Transf (AST/SGOT) 16, Alanine Aminotransferase (ALT/SGPT) 8, Alkaline Phosphatase 73, Total Protein 4.8, Albumin 2.2 04/30/22 05:35: White Blood Count 5.7, Red Blood Count 3.33, Hemoglobin 12.2, Hematocrit 38, Mean Corpuscular Volume 113, Mean Corpuscular Hemoglobin 37, Mean Corpuscular Hemoglobin Concent 32, Red Cell Distribution Width 13.2, Platelet Count 399, Mean Platelet Volume 9.3, Immature Granulocyte % (Auto) 1, Neutrophils (%) (Auto) 57, Lymphocytes (%) (Auto) 27, Monocytes (%) (Auto) 10, Eosinophils (%) (Auto) 5, Basophils (%) (Auto) 1, Neutrophils # (Auto) 3.2, Lymphocytes # (Auto) 1.5, Monocytes # (Auto) 0.6, Eosinophils # (Auto) 0.3, Basophils # (Auto) 0.1, Immature Granulocyte # (Auto) 0.0, Sodium Level 136, Potassium Level 4.8, Chloride Level 101, Carbon Dioxide Level 24, Anion Gap 11, Blood Urea Nitrogen 12, Creatinine 0.62, Estimat Glomerular Filtration Rate 123, BUN/Creatinine Ratio 19, Glucose Level 98, Calcium Level 9.6, Corrected Calcium 10.1, Total Bilirubin 0.5, Aspartate Amino Transf (AST/SGOT) 23, Alanine Aminotransferase (ALT/SGPT) 22, Alkaline Phosphatase 81, Total Protein 6.8, Albumin 3.4 Discharge Home Medications: Active Scripts Active Gabapentin 100 Mg Capsule 100 Mg PO TID Oxyir Tablet (Oxycodone HCl) 5 Mg Tab 10 Mg PO Q4H PRN Instructions to patient/family Please see electronic discharge instructions given to patient. Diagnosis/Problems Diagnosis/Problems (1) S/P bilateral below knee amputation ATIF LIND DO May 02, 2022 06:51
[2022-05-02 07:15] VITALS: BP 103/63
[2022-05-02] MEDS: GABAPENTIN 100 MG (NEURONTIN) CAP PO SCH ×2 (08:10→12:09)
[2022-05-02] MEDS: DOCUSATE SODIUM 100 MG (COLACE) CAP PO SCH (10:59)
[2022-05-02] MEDS: SENNA W/DOCUSATE (SENOKOT S) TABLET PO SCH (10:59)
[2022-05-02] MEDS: polyethylene glycoL POWDER 17 GM (MIRALAX) PACK PO SCH (10:59)
[2022-05-02] MEDS: MICONAZOLE 2% POWDER (DESENEX AF) 90 GM TOP SCH (11:00)
[2022-05-02] MEDS: HYDROmorphone 2 MG/ML VIAL (DILAUDID) IV PRN (12:00)
[2022-05-02] MEDS: HYPOCHLOROUS ACID/NaCl (VASHE) 250 ML IR PRN (12:10)
[2022-05-02 13:10] VITALS: BP 103/63
--- NOTE | 2022-05-02 13:39 | Therapy Team Discharge Summary ---
Therapy Discharge Summary Discharge Recommendations Date of Discharge Physical Therapy Roll Left to Right (QC): 6 Sit to Lying (QC): 6 Lying to Sitting/Side of Bed(Q: 6 Sit to Stand (QC): 9 Chair/Bpe-dj-Kenkh Xfer(QC): 5 Toilet Transfer (QC): 88 Car Transfer (QC): 7 Does the Patient Walk: No and Walking Goal NOT indicated Walk 10 feet (QC): 9 Walk 50 ft with 2 Turns(QC): 9 Walk 150 ft (QC): 9 Walking 10ft on uneven surface: 9 Does the Pt Use a Wheelchair: Yes Wheel 50 ft with 2 turns (QC): 6 Wheel 150 ft (QC): 6 Type of Wheelchair: Manual 1 Step (curb) (QC): 9 4 Steps (QC): 9 12 Steps (QC): 9 Balance Sitting Static: Fair Balance Sitting Dynamic: Fair Picking up an Object (QC): 6 (pt indep to safely p/u item from floor reaching over side of w/c) Occupational Therapy Pt presented to ARU s/p Román AYOUB. At PL, pt was IND with all ADLs at w/c level and IND with functional mobility with w/c. At eval, he scored IND with eating, setup at bed level with sponge bath and UBD, SBA with LBD, and setup at bed level with urinal for toileting. OT tx sessions focused on increasing IND in ADLs, increasing BUE strength and endurance, functional mobility, and overall activity tolerance. Pt met all OT therapy goals by d/c. OT recommends pt get a BSC with drop arms upon d/c. Pt is being discharged to home with spouse and son. D/c from OT at this time. Decreased Activ Tolerance, Decreased UE Strength Eating (QC): 6 Oral Hygiene (QC): 9 Shower/Bathe Self (QC): 6 (seated in w/c at sink) Upper Body Dressing (QC): 6 (seated in w/c at sink) Lower Body Dressing (QC): 6 (seated in w/c at sink) On/Off Footwear (QC): 88 Toileting Hygiene (QC): 6 (IND with urinal.) PT Jail Goals Jail Goals PT Bag Machine Adjuster Goals Time Frame: May 11, 2022 Roll Left to Right (QC): 6 Sit to Lying (QC): 6 Lying-Sitting on Side/Bed(QC): 6 Sit to Stand (QC): 9 Chair/Qya-ij-Xgzpo Xfer(QC): 6 Car Transfer (QC): 6 Does the Patient Walk: No and Walking Goal NOT indicated Walk 10 feet (QC): 9 Walk 10ft-Uneven Surface(QC): 9 Walk 50ft with 2 Turns (QC): 9 Walk 150 ft (QC): 9 Does the Pt use WC or Scooter?: Yes Wheel 50 feet with 2 turns (QC: 6 1 Step (curb) (QC): 9 4 Steps (QC): 9 12 Steps (QC): 9 Picking up an Object (QC): 9 OT Jail Goals Bag Machine Adjuster Goals Time Frame: May 10, 2022 Eating (QC): 6 (met) Oral Hygiene (QC): 9 Shower/Bathe Self (QC): 6 (sponge bath; met) Upper Body Dressing (QC): 6 (met) Lower Body Dressing (QC): 6 (met) On/Off Footwear (QC): 88 Toileting Hygiene (QC): 6 (met) Toilet/Commode Transfer (QC): 6 Additional Goals: 1-Demonstrate ADL Tasks, 2-Verbalize Understanding, 3-Impr oveStrength/Bronson 1=Demonstrate adherence to instructed precautions during ADL tasks. 2=Patient will verbalize/demonstrate understanding of assistive devices/modifications for ADL. 3=Patient will improve strength/tolerance for activity to enable patient to perform ADL's. Speech Jail Goals Bag Machine Adjuster Goals 1. The patient will tolerate the least restrictive diet consistency without s/s of suspected aspiration. Time Frame: Two Weeks. JAMESON LIU OT May 02, 2022 13:39
--- NOTE | 2022-05-02 13:51 | Therapy Team Discharge Summary ---
Therapy Discharge Summary Discharge Recommendations Date of Discharge Physical Therapy Patient came to rehab following bilateral BKA's. Upon evaluation patient performed rolling with independence, supine to sit with SBA, sit to supine with independence, sliding board transfer with max assist, independent with WC mo bility. Patient has been performing bed mobility and transfer training, balance and endurance training, functional strengthening, WC mobility training, and education. 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 Now, patient performs rolling and supine <-> sit with independence, sliding board transfers with setup, refused to perform a car tr ansfer, independent with WC mobility. Patient has been discharged from this facility and will be discharged from PT at this time. Roll Left to Right (QC): 6 Sit to Lying (QC): 6 Lying to Sitting/Side of Bed(Q: 6 Sit to Stand (QC): 9 Chair/Ops-rf-Mxnui Xfer(QC): 5 Toilet Transfer (QC): 88 Car Transfer (QC): 7 Does the Patient Walk: No and Walking Goal NOT indicated Walk 10 feet (QC): 9 Walk 50 ft with 2 Turns(QC): 9 Walk 150 ft (QC): 9 Walking 10ft on uneven surface: 9 Does the Pt Use a Wheelchair: Yes Wheel 50 ft with 2 turns (QC): 6 Wheel 150 ft (QC): 6 Type of Wheelchair: Manual 1 Step (curb) (QC): 9 4 Steps (QC): 9 12 Steps (QC): 9 Balance Sitting Static: Fair Balance Sitting Dynamic: Fair Picking up an Object (QC): 6 (pt indep to safely p/u item from floor reaching over side of w/c) Occupational Therapy Decreased Activ Tolerance, Decreased UE Strength Eating (QC): 6 Oral Hygiene (QC): 9 Shower/Bathe Self (QC): 6 (seated in w/c at sink) Upper Body Dressing (QC): 6 (seated in w/c at sink) Lower Body Dressing (QC): 6 (seated in w/c at sink) On/Off Footwear (QC): 88 Toileting Hygiene (QC): 6 (IND with urinal.) PT [facility] Goals [facility] Goals PT Commodity Manager Goals Time Frame: May 11, 2022 Roll Left to Right (QC): 6 Sit to Lying (QC): 6 Lying-Sitting on Side/Bed(QC): 6 Sit to Stand (QC): 9 Chair/Ike-ic-Ajrbj Xfer(QC): 6 Car Transfer (QC): 6 Does the Patient Walk: No and Walking Goal NOT indicated Walk 10 feet (QC): 9 Walk 10ft-Uneven Surface(QC): 9 Walk 50ft with 2 Turns (QC): 9 Walk 150 ft (QC): 9 Does the Pt use WC or Scooter?: Yes Wheel 50 feet with 2 turns (QC: 6 1 Step (curb) (QC): 9 4 Steps (QC): 9 12 Steps (QC): 9 Picking up an Object (QC): 9 OT [facility] Goals [facility] Goals Time Frame: May 10, 2022 Eating (QC): 6 (met) Oral Hygiene (QC): 9 Shower/Bathe Self (QC): 6 (sponge bath; met) Upper Body Dressing (QC): 6 (met) Lower Body Dressing (QC): 6 (met) On/Off Footwear (QC): 88 Toileting Hygiene (QC): 6 (met) Toilet/Commode Transfer (QC): 6 Additional Goals: 1-Demonstrate ADL Tasks, 2-Verbalize Understanding, 3- ImproveStrength/Bronson 1=Demonstrate adherence to instructed precautions during ADL tasks. 2=Patient will verbalize/demonstrate understanding of assistive devices/modifications for ADL. 3=Patient will improve strength/tolerance for activity to enable patient to perform ADL's. Speech [facility] Goals Commodity Manager Goals 1. The patient will tolerate the least restrictive diet consistency without s/s of suspected aspiration. Time Frame: Two Weeks. JUAN RAMON HEARD PT May 02, 2022 13:51
== END 2022-05-02 13:10 | disposition home or self-care (01) | DRG 560 ==
PROVIDERS: ADMIT Internal Medicine; ATTEND Internal Medicine
DX: Z47.81 Encounter for orthopedic aftercare following surgical amputation (principal); E46 Unspecified protein-calorie malnutrition; I70.203 Unspecified atherosclerosis of native arteries of extremities, bilateral legs; F17.210 Nicotine dependence, cigarettes, uncomplicated; F10.10 Alcohol abuse, uncomplicated; Z68.33 Body mass index [BMI] 33.0-33.9, adult; R13.10 Dysphagia, unspecified; Z91.19 Patient's noncompliance with other medical treatment and regimen; Z86.718 Personal history of other venous thrombosis and embolism; Z79.01 Long term (current) use of anticoagulants
CPT/HCPCS: 36415; 74230; 80053; 85025

== ENCOUNTER 2022-05-03 14:53 | Emergency (ER) | payer OTHER ==
[~2022-05-03] VITALS: Ht 127 cm; Wt 55.0 kg
[~2022-05-03 14:53] MED LIST changes: -ACETAMINOPHEN 325 MG TABLET PO PRN; -ALPRAZolam 0.25 MG (XANAX) TAB PO PRN; -BISACODYL 10 MG SUPP (DULCOLAX) PR PRN; -CALCIUM CARBONATE 500 MG (TUMS) TAB.CHEW PO PRN; -DOCUSATE SODIUM 100 MG (COLACE) CAP PO PRN; -FLEET ENEMA ADULT 1 EA BTL PR PRN; +GABA-486 PO; -LACTULOSE SYRUP 10GM/15ML (ENULOSE) 30ML UDC PO PRN; -LOPERAMIDE 2 MG (IMODIUM) TABLET PO PRN; -MELATONIN 3 MG TABLET PO PRN; +OXC5T PO; -diphenhydrAMINE 25 MG TAB (BENADRYL) PO PRN; -guaiFENesin/CODEINE (ROBITUSSIN AC) 10ML UDC PO PRN
[2022-05-03] MEDS ORDERED: KETOROLAC 30 MG/ML VIAL IM ONE (16:00)
[2022-05-03] MEDS ORDERED: oxyCODONE/APAP 5/325MG (PERCOCET 5) TABLET PO ONE (16:00)
--- NOTE | 2022-05-03 16:25 | ED General ---
General Chief Complaint: Skin/Wound Problems Stated Complaint: PAIN CONTROL Nursing Triage Note: pt to rm 7 by cr co ems with cc of pain post bi lat amputation below the knees. pt was released yesterday and is unable to take care of himself and unable to get the pain meds that were ordered. Source of Information: Patient Exam Limitations: No Limitations History of Present Illness Date Seen by Provider: May 03, 2022 Time Seen by Provider: 15:00 Initial Comments This 41-year-old gentleman presents to the emergency room via EMS with complaints of inability to appropriately care for self after being discharged home from the acute rehab unit after bilateral BKA. Patient was discharged yesterday. He reports he is unable to appropriately maneuver around the home because his wheelchair cannot get into the bathroom. He has not yet been able to procure a bedside commode. No one in his family has transportation, and he has not been able to last picker his medications. He has trouble doing his dressing changes on his own and is having difficulty finding an appropriate place in his home to do dressing changes. His Medicaid and Medicare healthcare coverage have not yet been cleared. He therefore does not have the resources to utilize resources such as long-term care. Physically he feels like he is doing fairly well, but he is not able to appropriately care for himself in the home environment. Allergies and Home Medications Allergies Coded Allergies: No Known Drug Allergies (Unverified , 08/04/21) He denies allergies to drugs and food, says he has seasonal allergies Patient Home Medication List Home Medication List Reviewed: Yes Gabapentin (Gabapentin) 100 Mg Capsule, 100 MG PO TID Prescribed by: ATIF LIND on 05/02/22 0650 Oxycodone Hcl (Oxyir Tablet) 5 Mg Tab, 10 MG PO Q4H PRN for PAIN-SEVERE (8-10) Prescribed by: ATIF LIND on 05/02/22 0650 Discontinued Medications Amoxicillin/Potassium Clav (Amox Tr-K Clv 875-125 mg Tab) 875 Mg-125 Mg Tablet, 1 EACH PO BID Prescribed by: RAMIN FLORES on 04/19/22 1308 Apixaban (Eliquis) 5 Mg Tablet, 5 MG PO BID Prescribed by: RAMIN FLORES on 04/19/22 1308 Ibuprofen (Ibuprofen) 200 Mg Capsule, 400 MG PO Q8H PRN for PAIN-MILD (1-4), (Reported) Entered as Reported by: JO DAVISON on 08/23/21 1542 Review of Systems Review of Systems Constitutional: no symptoms reported EENTM: no symptoms reported Respiratory: no symptoms reported Cardiovascular: no symptoms reported Gastrointestinal: no symptoms reported Genitourinary: no symptoms reported Musculoskeletal: see HPI Skin: see HPI Psychiatric/Neurological: See HPI Hematologic/Lymphatic: No Symptoms Reported Immunological/Allergic: no symptoms reported Past Dvkdngy-Rpdwsc-Cuupjm Hx Patient Social History Tobacco Use?: Yes Tobacco type used: Cigarettes Smoking Status: Current Someday Smoker Substance use?: No Alcohol Use?: Yes Alcohol type: Hard Liquor Alcohol Frequency: Once in a while Immunizations Up To Date First/Initial COVID19 Vaccinat: DOESN'T PLAN ON TAKING IT Second COVID19 Vaccination Bear: DOESN'T PLAN ON TAKING IT Third COVID19 Vaccination Date: DOESN'T PLAN ON TAKING IT Seasonal Allergies Seasonal Allergies: Yes Past Medical History Surgery/Hospitalization HX: -bilateral foot surgerys/toe amputations - first 3 toes on each food removed -all teeth pulled/removed pad/dvt, psoraisis bi lat below the knee amputation Surgeries: Yes Abdominal, Amputation (Bilateral BKA), Orthopedic Respiratory: No Cardiac: Yes (PAD; DVT'S ) Deep Vein Thrombosis, Peripheral Vascular Neurological: No Genitourinary: No Gastrointestinal: No Musculoskeletal: Yes (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) Amputee Endocrine: No HEENT: No (ALL TEETH REMOVED) Cancer: No Psychosocial: No Integumentary: Yes (CHRONIC LEG WOUNDS/GANGRENE) Psoriasis Blood Disorders: Yes (DVT'S) Family Medical History No Pertinent Family Hx, Other Conditions/Hx EXTREME NON-COMPLIANCE IN ALL ASPECTS OF CARE SOCIAL HISTORY: -SMOKES 2-3 PPD -ETOH--DRINKS 1.75 LITERS OF HARD LIQUOR DAILY--STATES LATELY HE HAS ONLY BEEN DRINKING "3 OR 4 GLASSES" OF HARD LIQUOR/DAY. 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 -ALL TEETH REMOVED -HERNIA REPAIR Physical Exam Vital Signs Vital Signs - First Documented 05/03/22 05/03/22 15:13 18:05 Temp 36.0 Pulse 110 Resp 20 B/P (MAP) 139/82 (101) Pulse Ox 97 O2 Delivery Room Air Capillary Refill : Height, Weight, BMI Height: '" Weight: lbs. oz. kg; 34.00 BMI Method: General Appearance: No Apparent Distress, WD/WN HEENT: PERRL/EOMI, Normal ENT Inspection Neck: Normal Inspection Cardiovascular: No Edema, No Murmur, Tachycardia (Regular) Gastrointestinal: Non Tender, Soft Extremity: Other (Bilateral BKA with surgical wounds draining serosanguineous fluid. Wound is open with adipose tissue exposed and no skin flap.) Neurologic/Psychiatric: Alert, Oriented x3, No Motor/Sensory Deficits, Normal Mood/Affect Skin: Normal Color, Warm/Dry, Other (See above) Progress/Results/Core Measures Suspected Sepsis SIRS Temperature: Pulse: 110 Respiratory Rate: 20 Blood Pressure 139 /82 Mean: 101 Results/Orders My Orders Orders - ANEL JENSEN MD Oxycodone/Apap 5/325mg Tablet (Percocet (05/03/22 16:00) Ketorolac Injection (Toradol Injection) (05/03/22 16:00) Rx-Oxycodone/Apap 5-325 Mg (Rx-Percocet (05/03/22 18:00) Medications Given in ED Current Medications Medications Dose Ordered Sig/Bill Route Start Time Stop Time Status Last Admin Dose Admin Ketorolac Tromethamine 30 mg ONCE ONCE IM 05/03/22 16:00 05/03/22 16:01 DC 05/03/22 15:56 30 MG Oxycodone/ Acetaminophen 1 tab ONCE ONCE PO 05/03/22 16:00 05/03/22 16:01 DC 05/03/22 15:56 1 TAB Vital Signs/I&O 05/03/22 05/03/22 05/03/22 05/03/22 15:13 15:56 15:56 18:05 Temp 36.0 36.0 36.0 36.0 Pulse 110 96 Resp 20 20 B/P (MAP) 139/82 (101) 117/82 Pulse Ox 97 O2 Delivery Room Air Room Air Capillary Refill : Blood Pressure Mean: 101 Progress Note #1: Time: 16:20 Progress Note I have been working with the social work department in Acute Rehab Unit and attempt to find the best possible available care for this patient. Unfortunately, he does not qualify for a readmission to ARU nor does he meet inpatient criteria. Social work has arranged for home health to start on Friday. We are performing dressing changes in the ER after pretreatment with oxycodone and Toradol. Progress Note #2: Progress Note I personally redressed to the surgical wounds in the same fashion they were dressed previously. Patient was pretreated with Toradol and Percocet. I discussed the situation with Dr. Flores, and he agrees that patient does not meet admission criteria and there would not be justification for admission. Tr ansportation was arranged with [employer]. Patient was given a take-home prescription for Percocet since he has not been able to get to the pharmacy. Departure Impression Primary Impression: S/P bilateral BKA (below knee amputation) Additional Impression: Unable to care for self Disposition: 01 HOME, SELF-CARE Condition: Improved Departure-Patient Inst. Decision time for Depature: 17:30 Referrals: NO,LOCAL PHYSICIAN (PCP/Family) Primary Care Physician Patient Instructions: Amputation, Nzsqo-fmp-Mupr (DC) Add. Discharge Instructions: Continue to perform dressing changes and postoperative care as previously directed. Return to care if you have worsening symptoms, especially if you develop puslike drainage or fevers. Keep your follow-up appointments as previously arranged. You may use ibuprofen up to 400 mg every 6 hours as needed for pain as well as your prescribed pain medication. All discharge instructions reviewed with patient and/or family. Voiced understanding. Copy Copies To 1: [facility]/ANEL BOSTON MD May 03, 2022 16:25
[2022-05-03] MEDS ORDERED: RX-OXYCODONE/APAP 5-325 MG #4 TAB PK PO PRN (18:00)
[2022-05-03 18:05] VITALS: BP 117/82
== END 2022-05-03 18:05 | disposition home or self-care (01) ==
LOC: EDUNIT# 14:53 → ER 14:54
DX: T81.31XA Disruption of external operation (surgical) wound, not elsewhere classified, initial encounter (principal); F17.210 Nicotine dependence, cigarettes, uncomplicated; Z89.511 Acquired absence of right leg below knee; Z89.512 Acquired absence of left leg below knee; Z74.1 Need for assistance with personal care; Z89.422 Acquired absence of other left toe(s); Z89.411 Acquired absence of right great toe; Z86.718 Personal history of other venous thrombosis and embolism; Z99.3 Dependence on wheelchair; Z28.310 Unvaccinated for COVID-19
CPT/HCPCS: 99283

== ENCOUNTER 2022-05-05 02:22 | Inpatient (IN) | payer OTHER ==
[~2022-05-05] VITALS: Ht 145 cm; Wt 74.1 kg
--- NOTE | 2022-05-05 03:01 | ED General ---
General Chief Complaint: General Problems/Pain Stated Complaint: NAUSEA, DIARRHEA Source of Information: Patient Exam Limitations: No Limitations (KYE FINCH MD) History of Present Illness Date Seen by Provider: May 05, 2022 Time Seen by Provider: 02:58 Initial Comments Patient is a 41-year-old male who presents to the emergency department today with a chief complaint of nausea, dry heaving 6 or 7 times today, chronic diarrhea. Patient is status post bilateral below the knee amputations by Dr. Fernandez a couple of weeks ago. History of hypertension. Denies any sick contacts at home. States that he has to blend all of his foods because he has a difficult time swallowing solids. States he has diffuse abdominal pain. Has been taking pain medications at home. States he feels like he has been drinking enough fluids but he has vomited so much today he thinks he is dehydrated at this point. No problems with urination, burning, urgency or frequency. Denies any blood in his stool. Does not think he is currently on antibiotics. Has had no prior abdominal surgeries All other review of systems reviewed and negative except as stated. Timing/Duration: 12-24 Hours Severity: Severe Associated Systoms: No Cough, No Fever/Chills; Nausea/Vomiting, Weakness (KYE FINCH MD) Allergies and Home Medications Allergies Coded Allergies: No Known Drug Allergies (Unverified , 08/04/21) He denies allergies to drugs and food, says he has seasonal allergies Patient Home Medication List Home Medication List Reviewed: Yes (KYE FINCH MD) Acetaminophen (Tylenol Extra Strength) 500 Mg Tablet, 1,000 MG PO Q8H PRN for PAIN-MILD (1-4), (Reported) Entered as Reported by: KIERA DELACRUZ on 05/06/22 1031 Last Action: Reviewed Ibuprofen (Ibuprofen) 200 Mg Tablet, 400 MG PO Q8H PRN for PAIN-MILD (1-4), (Reported) Entered as Reported by: KIERA DELACRUZ on 05/06/22 1031 Last Action: Reviewed Discontinued Medications Amoxicillin/Potassium Clav (Amox Tr-K Clv 875-125 mg Tab) 875 Mg-125 Mg Tablet, 1 EACH PO BID Prescribed by: RAMIN FLORES on 04/19/22 1308 Apixaban (Eliquis) 5 Mg Tablet, 5 MG PO BID Prescribed by: RAMIN FLORES on 04/19/22 1308 Gabapentin (Gabapentin) 100 Mg Capsule, 100 MG PO TID Discontinued Reason: No Longer Taking Prescribed by: ATIF LIND on 05/02/22649 Last Action: Discontinued Ibuprofen (Ibuprofen) 200 Mg Capsule, 400 MG PO Q8H PRN for PAIN-MILD (1-4), (Reported) Entered as Reported by: JO DAVISON on 08/23/21 1542 Oxycodone Hcl (Oxyir Tablet) 5 Mg Tab, 10 MG PO Q4H PRN for PAIN-SEVERE (8-10) Discontinued Reason: No Longer Taking Prescribed by: ATIF LIND on 05/02/22649 Last Action: Discontinued Review of Systems Review of Systems Constitutional: see HPI, malaise EENTM: no symptoms reported Respiratory: no symptoms reported Cardiovascular: no symptoms reported Gastrointestinal: abdominal pain, diarrhea, nausea, vomiting Genitourinary: no symptoms reported Skin: no symptoms reported (KYE FINCH MD) All Other Systems Reviewed Negative Unless Noted: Yes (KYE FINCH MD) Past Nhqzbxw-Rvezvv-Jtvgyv Hx Immunizations Up To Date First/Initial COVID19 Vaccinat: DOESN'T PLAN ON TAKING IT Second COVID19 Vaccination Bear: DOESN'T PLAN ON TAKING IT Third COVID19 Vaccination Date: DOESN'T PLAN ON TAKING IT (KYE FINCH MD) Seasonal Allergies Seasonal Allergies: Yes (KYE FINCH MD) Past Medical History Surgery/Hospitalization HX: -bilateral foot surgerys/toe amputations - first 3 toes on each food removed -all teeth pulled/removed pad/dvt, psoraisis bi lat below the knee amputation Surgeries: Yes Abdominal, Amputation, Orthopedic Respiratory: No Cardiac: Yes (PAD; DVT'S ) Deep Vein Thrombosis, Peripheral Vascular Neurological: No Genitourinary: No Gastrointestinal: No Musculoskeletal: Yes (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) Amputee Endocrine: No HEENT: No (ALL TEETH REMOVED) Cancer: No Psychosocial: No Integumentary: Yes (CHRONIC LEG WOUNDS/GANGRENE) Psoriasis Blood Disorders: Yes (DVT'S) (KYE FINCH MD) Family Medical History No Pertinent Family Hx, Other Conditions/Hx EXTREME NON-COMPLIANCE IN ALL ASPECTS OF CARE SOCIAL HISTORY: -SMOKES 2-3 PPD -ETOH--DRINKS 1.75 LITERS OF HARD LIQUOR DAILY--STATES LATELY HE HAS ONLY BEEN DRINKING "3 OR 4 GLASSES" OF HARD LIQUOR/DAY. 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 -ALL TEETH REMOVED -HERNIA REPAIR (KYE FINCH MD) Physical Exam Vital Signs Vital Signs - First Documented 05/05/22 02:25 Temp 36.6 Pulse 113 Resp 18 B/P (MAP) 99/81 (87) Pulse Ox 98 O2 Delivery Room Air (ANEL JENSEN MD) Vital Signs Capillary Refill : (KYE FINCH MD) Height, Weight, BMI Height: '" Weight: lbs. oz. kg; 34.00 BMI Method: General Appearance: No Apparent Distress, Thin Eyes: Bilateral Eye Normal Inspection HEENT: Other (Dry mucous membrane) Neck: Normal Inspection Respiratory: Lungs Clear, Normal Breath Sounds, No Accessory Muscle Use, No Respiratory Distress Cardiovascular: Regular Rate, Rhythm (Tachycardic 112), Normal Peripheral Pulses Gastrointestinal: Guarding, Tenderness (Diffuse) Extremity: Normal Capillary Refill, Normal Range of Motion, Other (Bilateral below the knee amputations with dressings in place) Neurologic/Psychiatric: Alert, Oriented x3, No Motor/Sensory Deficits, Normal Mood/Affect, special crimes 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 II-XII Norm as Tested Skin: Warm/Dry, Pallor (KYE FINCH MD) Focused Exam Lactate Level (ANEL JENSEN MD) Lactic Acid Level (ANEL JENSEN MD) Progress/Results/Core Measures Suspected Sepsis SIRS Temperature: Pulse: Respiratory Rate: Blood Pressure / Mean: (KYE FINCH MD) Results/Orders Lab Results Laboratory Tests Test 05/05/22 03:20 Range/Units White Blood Count 16.5 H 4.3-11.0 10^3/uL Red Blood Count 4.16 L 4.30-5.52 10^6/uL Hemoglobin 14.7 # 13.3-17.7 g/dL Hematocrit 43 40-54 % Mean Corpuscular Volume 104 H 80-99 fL Mean Corpuscular Hemoglobin 35 H 25-34 pg Mean Corpuscular Hemoglobin Concent 34 32-36 g/dL Red Cell Distribution Width 14.6 H 10.0-14.5 % Platelet Count 425 H 130-400 10^3/uL Mean Platelet Volume 9.5 9.0-12.2 fL Immature Granulocyte % (Auto) 1 % Neutrophils (%) (Auto) 85 H 42-75 % Lymphocytes (%) (Auto) 7 L 12-44 % Monocytes (%) (Auto) 8 0-12 % Eosinophils (%) (Auto) 0 0-10 % Basophils (%) (Auto) 0 0-10 % Neutrophils # (Auto) 14.0 H 1.8-7.8 10^3/uL Lymphocytes # (Auto) 1.1 1.0-4.0 10^3/uL Monocytes # (Auto) 1.3 H 0.0-1.0 10^3/uL Eosinophils # (Auto) 0.0 0.0-0.3 10^3/uL Basophils # (Auto) 0.1 0.0-0.1 10^3/uL Immature Granulocyte # (Auto) 0.1 0.0-0.1 10^3/uL Neutrophils % (Manual) 67 % Lymphocytes % (Manual) 12 % Monocytes % (Manual) 8 % Band Neutrophils 13 % Macrocytosis SLIGHT Prothrombin Time 14.4 12.2-14.7 SEC INR Comment 1.1 0.8-1.4 Activated Partial Thromboplast Time 39 H 24-35 SEC Sodium Level 136 135-145 MMOL/L Potassium Level 3.5 L 3.6-5.0 MMOL/L Chloride Level 101 98-107 MMOL/L Carbon Dioxide Level 18 L 21-32 MMOL/L Anion Gap 17 H 5-14 MMOL/L Blood Urea Nitrogen 18 7-18 MG/DL Creatinine 0.71 0.60-1.30 MG/DL Estimat Glomerular Filtration Rate 118 BUN/Creatinine Ratio 25 Glucose Level 151 H 70-105 MG/DL Calcium Level 9.8 8.5-10.1 MG/DL Corrected Calcium 9.9 8.5-10.1 MG/DL Total Bilirubin 1.0 0.1-1.0 MG/DL Aspartate Amino Transf (AST/SGOT) 15 5-34 U/L Alanine Aminotransferase (ALT/SGPT) 17 0-55 U/L Alkaline Phosphatase 96 40-136 U/L C-Reactive Protein High Sensitivity 17.34 H 0.00-0.50 MG/DL Total Protein 7.9 6.4-8.2 GM/DL Albumin 3.9 3.2-4.5 GM/DL Lipase < 4 L 8-78 U/L (ANEL JENSEN MD) My Orders Orders - ANEL JENSEN MD Hs C Reactive Protein (05/05/22 06:09) Drug Screen Stat (Urine) (05/05/22 06:51) Blood Culture (05/05/22 07:01) Protime With Inr (05/05/22 07:01) Partial Thromboplastin Time (05/05/22 07:01) Chest 1 View, Ap/Pa Only (05/05/22 07:01) Vital Signs Adult Sepsis Patie Q15M (05/05/22 07:01) Remove Rings In Anticipation O (05/05/22 07:01) Lactic Acid Analyzer (05/05/22 07:01) Piperacillin Sodium/Tazobactam (Zosyn Vi (05/05/22 07:15) Vancomycin Oral Capsule (Vancomycin Oral (05/05/22 07:15) (ANEL JENSEN MD) Medications Given in ED (ANEL JENSEN MD) Vital Signs/I&O 05/05/22 02:25 Temp 36.6 Pulse 113 Resp 18 B/P (MAP) 99/81 (87) Pulse Ox 98 O2 Delivery Room Air (ANEL JENSEN MD) Vital Signs/I&O Capillary Refill : (KYE FINCH MD) Progress Note : Time: 08:08 Progress Note Care of this patient was assumed from Dr. Finch at shift change. CT was pending at that time and has since been reviewed. There is evidence of bowel wall thickening and dilation of the colon suggestive of colitis. There is some similarity to prior CT. In the context of increased abdominal pain and increased diarrhea, this is concerning for infectious colitis, possibly C. difficile given the recent use of broad-spectrum antibiotics. Stool studies are pending. He has had multiple bowel movements in the ER with some relief of pain but unfortunately the stools have been mixed with urine. Stool specimen is still pending. Although patient has had chronic diarrhea, he reports an increas e in volume and frequency today. The severe pain is also new since his visit to the ER on Friday. He also has a leukocytosis of 16,000 which is a marked increase from 5000 on April 30. I have discussed the patient's situation with Dr. Fernandez. The abdominal pathology is unclear at this time. Infectious colitis, C. difficile, bowel ischemia (with history of significant vascular disease), etc. are still within the differential possibilities. Case was also discussed with Dr. Dow who will manage the surgical aspects of his care until Dr. Fernandez returns tomorrow. Surgical recommendation was for oral vancomycin as well as IV Flagyl and Zosyn. He is to remain n.p.o. for now except for oral vancomycin. I discussed CODE STATUS with the patient and he would like to remain full code. I worked with this patient extensively with multiple phone calls to social work on Friday due to his unsafe living situation. He has no bed and sleeps in a chair. He does not have a clean place at home to lie down and do dressing changes. He is unable to get into his bathroom because it is not wheelchair accessible. He does not yet have a commode at home because he has been unable to afford one. He does not want to borrow a commode that was offered to him because he will have trouble returning it. His family has no means of transportation. He does not yet have Medicare and Medicaid coverage that would help him with long-term nursing care. Application is submitted and processing is pending. He has applied for disabled housing but that is still pending. He does have home health set up for Friday if he is discharged from the hospital. Social work will be consulted on this visit. (ANEL JENSEN MD) Diagnostic Imaging Diagonstic Imaging: CT Plain Films/CT/US/NM/MRI: abdomen, pelvis Comments CT abdomen and pelvis viewed by me and report reviewed. See report below. Discussed with Dr. Fernandez and Dr. Dow: NAME: RADHA ROSE MED REC#: [id number] PT STATUS: REG ER : 1980 PHYSICIAN: KYE FINCH MD ADMIT DATE: 05/05/22/ER Draft Date of Exam:05/05/22 CT ABDOMEN/PELVIS WO PROCEDURE: CT abdomen and pelvis without contrast. TECHNIQUE: Multiple contiguous axial images were obtained through the abdomen and pelvis without the use of intravenous contrast. Auto Exposure Controls were utilized during the CT exam to meet ALARA standards for radiation dose reduction. INDICATION: Nausea, vomiting, diarrhea, abdominal pain COMPARISON: 04/17/2022 FINDINGS: The lung bases demonstrate chronic scarring and atelectasis. The heart is normal in size. There is bilateral gynecomastia. The liver demonstrates no focal lesions. The spleen is upper normal in size. The pancreas is normal. The adrenal glands are normal. The kidneys demonstrate no hydronephrosis. No calculi are seen. The small bowel loops are nondistended with no obstruction seen. There are some fluid-filled loops of small bowel. There is mild gaseous distention throughout the colon. The sigmoid colon and rectal wall may be mildly thickened on this noncontrast exam. Multiple mesenteric lymph nodes are noted, which are not significantly enlarged by size criteria. There is a prominent retroperitoneal para-aortic lymph node (image 81 series 2), measuring at 1 cm in the short axis. There are additional mildly prominent para-aortic lymph nodes as well. There are prominent inguinal lymph nodes bilaterally. No acute osseous abnormality is seen. IMPRESSION: 1. Mild gaseous distention of the colon, with some questionable wall thickening of the sigmoid colon and rectum. This could be due to a mild ileus and a colitis/proctitis is not excluded. Some similar findings are seen on the prior CT. 2. Mildly prominent retroperitoneal, mesenteric and inguinal lymph nodes. These may be reactive, although other etiologies are not excluded. The spleen is at the upper limit of normal in size. These findings also appear similar to the prior CT. Dictated on workstation # [id number] Dict: 05/05/22604 Trans: 05/05/22 0618 TESSIE [id number] Interpreted by: SHYANN BELLO MD (ANEL JENSEN MD) Departure Communication (Admissions) Time/Spoke to Admitting Phy: 07:05 Dr. Flores Time/Spoke to Consulting Phy: 07:10 Dr. Gaming (ANEL JENSEN MD) Impression Primary Impression: Colitis Additional Impressions: Generalized abdominal pain Diarrhea Qualified Codes: R19.7 - Diarrhea, unspecified Status post above-knee amputation of both lower extremities Status post below-knee amputation of both lower extremities Disposition: ADMITTED INPATIENT Condition: Improved Admissions Decision to Admit Reason: Admit from ER (General) Decision to Admit/Date: May 05, 2022 Time/Decision to Admit Time: 07:05 (ANEL JENSEN MD) Departure-Patient Inst. Referrals: NO,LOCAL PHYSICIAN (PCP/Family) Primary Care Physician KYE FINCH MD May 05, 2022 03:01 ANEL JENSEN MD May 05, 2022 08:14
[2022-05-05] MEDS ORDERED: ONDANSETRON 4 MG/2 ML (SDV) Z0FRAN IVP ONE (03:15)
[2022-05-05] MEDS ORDERED: NS IV 1000 ML 1,000 ML IV SCH (03:15)
[2022-05-05 03:36] LABS: BASOPHILS # (AUTO) 0.1 10^3/uL (0.0-0.1); BASOPHILS % (AUTO) 0 % (0-10); EOSINOPHILS % (AUTO) 0 % (0-10); HEMATOCRIT 43 % (40-54); HEMOGLOBIN 14.7 g/dL (13.3-17.7); LYMPHOCYTES # (AUTO) 1.1 10^3/uL (1.0-4.0); LYMPHOCYTES % (AUTO) 7 % (12-44); MEAN CORPUSCULAR HEMOGLOBIN 35 pg (25-34); MEAN CORPUSCULAR HGB CONC 34 g/dL (32-36); MEAN CORPUSCULAR VOLUME 104 fL (80-99); MEAN PLATELET VOLUME 9.5 fL (9.0-12.2); MONOCYTES # (AUTO) 1.3 10^3/uL (0.0-1.0); MONOCYTES % (AUTO) 8 % (0-12); NEUTROPHILS % (AUTO) 85 % (42-75); PLATELET COUNT 425 10^3/uL (130-400); WHITE BLOOD COUNT 16.5 10^3/uL (4.3-11.0)
[2022-05-05 03:50] LABS: ALBUMIN 3.9 GM/DL (3.2-4.5); CHLORIDE 101 MMOL/L (98-107); POTASSIUM 3.5 MMOL/L (3.6-5.0); SODIUM 136 MMOL/L (135-145)
[2022-05-05 03:51] LABS: CALCIUM 9.8 MG/DL (8.5-10.1)
[2022-05-05 03:53] LABS: GLUCOSE 151 MG/DL (70-105); TOTAL PROTEIN 7.9 GM/DL (6.4-8.2)
[2022-05-05 03:54] LABS: BAND NEUTROPHILS 13 %; CARBON DIOXIDE 18 MMOL/L (21-32); LYMPHOCYTES % (MANUAL) 12 %; MONOCYTES % (MANUAL) 8 %; NEUTROPHILS % (MANUAL) 67 %
[2022-05-05 03:56] LABS: ALKALINE PHOSPHATASE 96 U/L (40-136); CREATININE SERUM 0.71 MG/DL (0.60-1.30); GFR ESTIMATED 118
[2022-05-05 03:57] LABS: BUN/CREATININE RATIO 25
[2022-05-05 03:59] LABS: ALANINE AMINOTRANSFERASE 17 U/L (0-55); LIPASE < 4 U/L (8-78)
--- NOTE | 2022-05-05 06:19 | Diagnostic Imaging Report ---
PROCEDURE: CT abdomen and pelvis without contrast. TECHNIQUE: Multiple contiguous axial images were obtained through the abdomen and pelvis without the use of intravenous contrast. Auto Exposure Controls were utilized during the CT exam to meet ALARA standards for radiation dose reduction. INDICATION: Nausea, vomiting, diarrhea, abdominal pain COMPARISON: 04/17/2022 FINDINGS: The lung bases demonstrate chronic scarring and atelectasis. The heart is normal in size. There is bilateral gynecomastia. The liver demonstrates no focal lesions. The spleen is upper normal in size. The pancreas is normal. The adrenal glands are normal. The kidneys demonstrate no hydronephrosis. No calculi are seen. The small bowel loops are nondistended with no obstruction seen. There are some fluid-filled loops of small bowel. There is mild gaseous distention throughout the colon. The sigmoid colon and rectal wall may be mildly thickened on this noncontrast exam. Multiple mesenteric lymph nodes are noted, which are not significantly enlarged by size criteria. There is a prominent retroperitoneal para-aortic lymph node (image 81 series 2), measuring at 1 cm in the short axis. There are additional mildly prominent para-aortic lymph nodes as well. There are prominent inguinal lymph nodes bilaterally. No acute osseous abnormality is seen. IMPRESSION: 1. Mild gaseous distention of the colon, with some questionable wall thickening of the sigmoid colon and rectum. This could be due to a mild ileus and a colitis/proctitis is not excluded. Some similar findings are seen on the prior CT. 2. Mildly prominent retroperitoneal, mesenteric and inguinal lymph nodes. These may be reactive, although other etiologies are not excluded. The spleen is at the upper limit of normal in size. These findings also appear similar to the prior CT. Dictated by: Dictated on workstation # [id number]
[2022-05-05] MEDS ORDERED: VANCOMYCIN 125 MG CAPSULE PO ONE (07:15)
[2022-05-05] MEDS ORDERED: PIPERACILLIN SODIUM/TAZOBACTAM 4.5 GM in NS (IVPB) 100 ML IV ONE (07:15)
[2022-05-05 07:24] LABS: INR 1.1 (0.8-1.4); PROTHROMBIN TIME PATIENT 14.4 SEC (12.2-14.7)
[2022-05-05] MEDS ORDERED: HYPOCHLOROUS ACID/NaCl (VASHE) 250 ML IR PRN (08:15)
--- NOTE | 2022-05-05 08:44 | Diagnostic Imaging Report ---
HISTORY: Sepsis COMPARISON: 04/16/2022 TECHNIQUE: Frontal view of the chest. FINDINGS: There is chronic elevation of the right hemidiaphragm with left basilar atelectasis. Minimal opacity in the left upper lung appears similar to August 2021, likely chronic scarring. No new consolidation is seen. There is no pleural effusion or pneumothorax. The cardiac silhouette is normal in size. IMPRESSION: 1. Chronic findings in the chest with no acute pulmonary abnormality seen. Dictated by: Dictated on workstation # [id number]
[2022-05-05] MEDS ORDERED: ONDANSETRON 4 MG/2 ML (SDV) Z0FRAN IV PRN (09:15)
[2022-05-05] MEDS ORDERED: morphine INJ 4 MG/ML 1 ML (VIAL/SYRINGE) IV PRN (09:15)
[2022-05-05] MEDS: PANTOPRAZOLE 40 MG (PROTONIX) VIAL IV SCH (09:24)
[2022-05-05] MEDS: LACTATED RINGERS 1,000 ML IV SCH ×2 (09:24→14:19)
[2022-05-05 09:25] VITALS: BP 115/69
[2022-05-05] MEDS ORDERED: PIPERACILLIN SODIUM/TAZOBACTAM 4.5 GM in NS (IVPB) 100 ML IV SCH (10:00)
[2022-05-05] MEDS ORDERED: metroNIDAZOLE 500 MG/100 ML IVPB (PRE-MIX) IV SCH (10:00)
[2022-05-05] MEDS ORDERED: APIXABAN 5 MG (ELIQUIS) TABLET PO ONE (10:00)
[2022-05-05] MEDS: VANCOMYCIN 50 MG/ML ORAL SOLN 150 ML PO SCH ×3 (10:07→20:50)
[2022-05-05 12:01] VITALS: BP 110/65
[2022-05-05] MEDS: PIPERACILLIN SODIUM/TAZOBACTAM 4.5 GM in NS (IVPB) 100 ML IV SCH ×2 (14:19→20:49)
--- NOTE | 2022-05-05 15:16 | CONSULTATION REPORT ---
DATE OF SERVICE: ADMITTING PHYSICIAN: Dr. Carlton. HISTORY OF PRESENT ILLNESS: The patient is a 41-year-old male with history of Buerger's disease with a heavy smoking history and history of severe peripheral vascular disease. He is status post bilateral cddin-uge-gvjn amputation by Dr. Fernandez on 04/17/2022. After the surgery, he then went rehabilitation. Unfortunately, he continues to smoke. He presented to the Emergency Department today with crampy lower abdominal pain as well as diarrhea. He does not report any nausea, no vomiting. He was on a number of antibiotics during his last admission as well. A CT scan was performed, which did show some mild inflammatory changes of the colon, likely consistent with colitis. Upon examination, he does have some tenderness; however, no peritoneal signs. PAST MEDICAL HISTORY: Peripheral vascular disease and Buerger's disease. PAST SURGICAL HISTORY: Bilateral toe amputations, bilateral aalgz-soc-cckz amputation 04/17/2022. ALLERGIES: NO KNOWN DRUG ALLERGIES. MEDICATIONS: See medication reconciliation. VITAL SIGNS: Stable, afebrile. REVIEW OF SYSTEMS: This is a thin-appearing male who is awake and alert and does not appear to be in any acute distress. He is not experiencing any shortness of breath or difficulty breathing. No chest pain, palpitations, diaphoresis. No nausea, vomiting with lower crampy abdominal pain with associated diarrhea, no red blood per rectum, no dark tarry stools. No fever, chills, no recent inadvertent weight loss. All other review of systems negative. PHYSICAL EXAMINATION: CHEST: Distant breath sounds and scattered wheezes bilaterally. HEART: Regular, no murmurs. EXTREMITIES: No lower extremity edema, negative Homans sign. HEENT: No scleral icterus. NECK: No cervical lymphadenopathy. ABDOMEN: Soft, nondistended. There is mild pain in the mid as well as lower abdominal quadrants upon deep palpation. No peritoneal signs. No hernias. SKIN: Warm, dry. ASSESSMENT AND PLAN: A 41-year-old male with abdominal pain, diarrhea, colitis and dehydration. This may represent an ischemic colitis secondary to his severe peripheral vascular disease; however, this likely may indicate a Clostridium difficile colitis from bacterial overgrowth and being on antibiotics for a protracted period of time. We will await the culture and sensitivity results of the stool and continue with medical therapy with IV hydration as well as antibiotics and bowel rest. Job ID: [id number] DocumentID: [id number] Dictated Date: 05/05/2022 10:29:34 Dinkey Engine Operator Date: 05/05/2022 15:15:30 Dictated By: THO CHARLES MD MTDD
[2022-05-05 16:22] VITALS: BP 106/60
--- NOTE | 2022-05-05 18:54 | History & Physical-Hospitalist ---
History of Present Illness HPI/Chief Complaint Alex Ma is a 41 year old male with PMH PAD, recent bilateral BKA, DVT on Eliquis, who presented with abdominal pain. He has also been very nauseous. He denies vomiting. He denies diarrhea. He denies fevers and chills. He denies chest pain. He denies shortness of breath. He was just discharged a couple days ago from the inpatient rehab unit after a hospitalization for bilateral BKA. Source: patient Exam Limitations: no limitations Date Seen 05/05/22 Time Seen by a Provider: 12:15 Attending Physician No,Local Physician PCP Admitting Physician: Ramin Flores MD Attending Physician: Ramin Flores MD Referring Physician Date of Admission May 05, 2022 at 07:05 Home Medications & Allergies Home Medications Reviewed patient Home Medication Reconciliation performed by pharmacy medication reconciliations test engineering technician and/or nursing. Patients Allergies have been reviewed. Allergies Allergies Coded Allergies No Known Drug Allergies ([id number]/9/21) He denies allergies to drugs and food, says he has seasonal allergies Past Gscspiz-Bzptwu-Qkxbrf Hx Patient Social History Tobacco Use?: Yes Tobacco type used: Cigarettes Smoking Status: Current Everyday Smoker Smokeless Tobacco Frequency: Never a User Use of E-Cig and/or Vaping dev: No Substance use?: No Alcohol Use?: No Alcohol type: Hard Liquor Alcohol Frequency: Once in a while Pt feels they are or have been: No Immunizations Up To Date First/Initial COVID19 Vaccinat: DOESN'T PLAN ON TAKING IT Second COVID19 Vaccination Bear: DOESN'T PLAN ON TAKING IT Tetanus Booster (TDap): Less Than 5 Years Hepatitis A: Yes Hepatitis B: Yes Seasonal Allergies Seasonal Allergies: Yes Current Status Advance Directives: No Communicates: Verbally Primary Language: Tristanian Preferred Spoken Language: Tristanian Is interpretation needed?: No Implanted or Applied Medical D: None Past Medical History Surgeries: Abdominal, Amputation, Orthopedic Deep Vein Thrombosis, Peripheral Vascular Amputee Psoriasis Blood Disorders: Yes (DVT'S) Family Medical History No Pertinent Family Hx, Other Conditions/Hx EXTREME NON-COMPLIANCE IN ALL ASPECTS OF CARE SOCIAL HISTORY: -SMOKES 2-3 PPD -ETOH--DRINKS 1.75 LITERS OF HARD LIQUOR DAILY--STATES LATELY HE HAS ONLY BEEN DRINKING "3 OR 4 GLASSES" OF HARD LIQUOR/DAY. 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 -ALL TEETH REMOVED -HERNIA REPAIR Review of Systems Constitutional: no symptoms reported EENTM: no symptoms reported Respiratory: no symptoms reported Cardiovascular: no symptoms reported Gastrointestinal: abdominal pain, nausea Genitourinary: no symptoms reported Musculoskeletal: no symptoms reported Physical Exam Physical Exam Vital Signs Vital Signs - First Documented 05/05/22 02:25 Temp 36.6 Pulse 113 Resp 18 B/P (MAP) 99/81 (87) Pulse Ox 98 O2 Delivery Room Air Capillary Refill : Less Than 3 Seconds Height, Weight, BMI Height: '" Weight: lbs. oz. kg; 33.38 BMI Method: General Appearance: No Apparent Distress, Chronically ill HEENT: PERRL/EOMI, Pharynx Normal Neck: Normal Inspection, Supple Respiratory: Lungs Clear, Normal Breath Sounds, No Respiratory Distress Cardiovascular: Regular Rate, Rhythm, No Murmur Gastrointestinal: Normal Bowel Sounds, Soft, Tenderness Extremity: Pedal Edema, Other (bilateral BKA with bandages in place) Neurologic/Psychiatric: Alert, Normal Mood/Affect Skin: Normal Color, Warm/Dry Results Results/Procedures Labs Laboratory Tests 05/05/22 03:20 Patient resulted labs reviewed. Imaging: Reviewed Imaging Report Assessment/Plan Admission Diagnosis Sepsis due to colitis Admission Status: Inpatient Order (span 2 midnights) Reason for Inpatient Admission: IV antibiotics Assessment and Plan Sepsis Colitis CT consistent with rectosigmoid colitis Surgery consulted Clear liquid diet Started on Zosyn IV fluids Bilateral BKA PAD Wound care DVT Eliquis Tobacco abuse Nicotine patch Diagnosis/Problems Diagnosis/Problems (1) Sepsis Status: Acute (2) Colitis Status: Acute (3) Acute deep vein thrombosis (DVT) of both lower extremities Status: Acute (4) Peripheral vascular disease Status: Acute (5) S/P bilateral below knee amputation Status: Chronic (6) Tobacco abuse Status: Chronic RAMIN FLORES MD May 05, 2022 18:53
[2022-05-05 19:51] VITALS: BP 101/55
[2022-05-05] MEDS: APIXABAN 5 MG (ELIQUIS) TABLET PO SCH (20:48)
[2022-05-06] VITALS (7 sets, daily range): BP systolic 100–108; BP diastolic 57–68
[2022-05-06] MEDS: LACTATED RINGERS 1,000 ML IV SCH ×3 (01:27→17:25)
[2022-05-06] MEDS: VANCOMYCIN 50 MG/ML ORAL SOLN 150 ML PO SCH ×4 (03:18→22:05)
[2022-05-06] MEDS: PIPERACILLIN SODIUM/TAZOBACTAM 4.5 GM in NS (IVPB) 100 ML IV SCH ×2 (03:24→18:53)
[2022-05-06 05:39] LABS: BASOPHILS # (AUTO) 0.1 10^3/uL (0.0-0.1); BASOPHILS % (AUTO) 1 % (0-10); EOSINOPHILS # (AUTO) 0.3 10^3/uL (0.0-0.3); EOSINOPHILS % (AUTO) 3 % (0-10); HEMATOCRIT 35 % (40-54); HEMOGLOBIN 11.4 g/dL (13.3-17.7); LYMPHOCYTES # (AUTO) 1.1 10^3/uL (1.0-4.0); LYMPHOCYTES % (AUTO) 10 % (12-44); MEAN CORPUSCULAR HEMOGLOBIN 35 pg (25-34); MEAN CORPUSCULAR HGB CONC 32 g/dL (32-36); MEAN CORPUSCULAR VOLUME 109 fL (80-99); MEAN PLATELET VOLUME 9.7 fL (9.0-12.2); MONOCYTES # (AUTO) 1.2 10^3/uL (0.0-1.0); MONOCYTES % (AUTO) 11 % (0-12); NEUTROPHILS # (AUTO) 8.4 10^3/uL (1.8-7.8); NEUTROPHILS % (AUTO) 75 % (42-75); PLATELET COUNT 307 10^3/uL (130-400); WHITE BLOOD COUNT 11.2 10^3/uL (4.3-11.0)
[2022-05-06 05:50] LABS: POTASSIUM 2.8 MMOL/L (3.6-5.0)
[2022-05-06 05:52] LABS: CALCIUM 8.3 MG/DL (8.5-10.1)
[2022-05-06 05:56] LABS: CREATININE SERUM 0.62 MG/DL (0.60-1.30)
[2022-05-06] MEDS ORDERED: ACETAMINOPHEN 500 MG TAB (TYLENOL) PO PRN (09:00)
[2022-05-06] MEDS: APIXABAN 5 MG (ELIQUIS) TABLET PO SCH ×2 (09:25→20:07)
[2022-05-06] MEDS: PANTOPRAZOLE 40 MG (PROTONIX) VIAL IV SCH (09:25)
[2022-05-06] MEDS ORDERED: ACET-2267 PO (10:31)
[2022-05-06] MEDS ORDERED: IBUP-2473 PO (10:31)
[2022-05-06] MEDS ORDERED: KCL 20 MEQ TAB (K-DUR) PO ONE (11:15)
--- NOTE | 2022-05-06 11:39 | Progress Note - Surgery ---
Subjective Date Seen by a Provider: May 06, 2022 Time Seen by a Provider: 09:00 Subjective/Events-last exam Patient with abdominal pain maybe a little better. Diarrhea still present. Low grade fever. Denies any n/v at this time. Denies sweats chills shortness of breath or chest pain. Just had dressing on stumps changed. Focused Exam Lactate Level 05/05/22 07:25: Lactic Acid Level 1.57 Objective Exam Vital Signs Date Time Temp Pulse Resp B/P (MAP) Pulse Ox O2 Delivery O2 Flow Rate FiO2 05/06/22 08:00 Room Air 05/06/22 07:28 37.9 89 17 108/68 (81) 94 Room Air 05/06/22 05:30 37.4 05/06/22 04:00 38.2 92 16 106/66 (79) 96 Room Air 05/06/22 00:00 36.9 88 16 106/63 (77) 98 Room Air 05/05/22 20:00 Room Air 05/05/22 19:51 37.4 80 19 101/55 (70) 97 Room Air 05/05/22 16:22 36.3 75 17 106/60 (75) 94 Room Air 05/05/22 13:01 95 Room Air 05/05/22 12:01 36.8 82 18 110/65 (80) 95 Room Air I & O 05/06/22 07:00 Intake Total 3110 ml Output Total 700 ml Balance 2410 ml Capillary Refill : Less Than 3 Seconds General Appearance: No Apparent Distress, Chronically ill HEENT: PERRL/EOMI, Pharynx Normal Neck: Normal Inspection, Supple Respiratory: Chest Non Tender, No Accessory Muscle Use, No Respiratory Distress Cardiovascular: Regular Rate, Rhythm, No JVD Gastrointestinal: soft, tenderness (slight tenderness lower abdomen no peritonitis.) Extremity: Pedal Edema, Other (bilateral BKA with bandages in place) Neurologic/Psychiatric: Alert, Oriented x3, Normal Mood/Affect Skin: Normal Color, Warm/Dry Lymphatic: No Adenopathy Results Lab Laboratory Tests 05/06/22 05:21: White Blood Count 11.2H, Red Blood Count 3.25L, Hemoglobin 11.4#L, Hematocrit 35L, Mean Corpuscular Volume 109H, Mean Corpuscular Hemoglobin 35H, Mean Corpuscular Hemoglobin Concent 32, Red Cell Distribution Width 15.0H, Platelet Count 307, Mean Platelet Volume 9.7, Immature Granulocyte % (Auto) 1, Neutrophils (%) (Auto) 75, Lymphocytes (%) (Auto) 10L, Monocytes (%) (Auto) 11, Eosinophils (%) (Auto) 3, Basophils (%) (Auto) 1, Neutrophils # (Auto) 8.4H, Lymphocytes # (Auto) 1.1, Monocytes # (Auto) 1.2H, Eosinophils # (Auto) 0.3, Basophils # (Auto) 0.1, Immature Granulocyte # (Auto) 0.1, Sodium Level 137, Potassium Level 2.8L, Chloride Level 103, Carbon Dioxide Level 21, Anion Gap 13, Blood Urea Nitrogen 6L, Creatinine 0.62, Estimat Glomerular Filtration Rate 123, BUN/Creatinine Ratio 10, Glucose Level 96, Calcium Level 8.3L Assessment/Plan Assessment/Plan Assessment/Plan lower abdominal pain b/l colitis recent history of b/l bka continue antibiotics bowel rest can start clears wound care daily check c CHASE Aranda DO May 06, 2022 11:38
[2022-05-06] MEDS: POTASSIUM CL 10MEQ/50ML IVPB 50 ML IV SCH ×4 (12:03→17:25)
--- NOTE | 2022-05-06 14:51 | Progress Note - Hospitalist ---
Subjective HPI/CC On Admission Date Seen by Provider: May 06, 2022 Alex Ma is a 41 year old male with PMH PAD, recent bilateral BKA, DVT on Eliquis, who presented with abdominal pain. He has also been very nauseous. He denies vomiting. He denies diarrhea. He denies fevers and chills. He denies chest pain. He denies shortness of breath. He was just discharged a couple days ago from the inpatient rehab unit after a hospitalization for bilateral BKA. Subjective/Events-last exam Pt reports doing well. He is hungry and hoping to advance his diet. He states he was told he needed to go to a care home but doesn't feel that's appropriate. He instead thinks he can take care of himself at home. Focused Exam Lactate Level 05/05/22 07:25: Lactic Acid Level 1.57 Objective Exam Vital Signs Vital Signs Date Time Temp Pulse Resp B/P (MAP) Pulse Ox O2 Delivery O2 Flow Rate FiO2 05/06/22 11:46 37.7 81 19 100/61 (74) 97 Room Air Capillary Refill : Less Than 3 Seconds General Appearance: No Apparent Distress, Chronically ill, Thin Respiratory: Lungs Clear, No Respiratory Distress Cardiovascular: Regular Rate, Rhythm, No Murmur Neurologic/Psychiatric: Alert, Oriented x3 Results/Procedures Lab Laboratory Tests 05/06/22 05:21 Patient resulted labs reviewed. Imaging: Reviewed Imaging Report Assessment/Plan Assessment and Plan Assess & Plan/Chief Complaint Sepsis Colitis CT consistent with rectosigmoid colitis Surgery consulted Clear liquid diet with ensure Continue Zosyn IV fluids Bilateral BKA PAD Wound care consulted, appreciate recs vice president client services consults, appreciate recs DVT Eliquis Tobacco abuse Nicotine patch LUCY MOLINA MD May 06, 2022 14:51
[2022-05-07] MEDS: PIPERACILLIN SODIUM/TAZOBACTAM 4.5 GM in NS (IVPB) 100 ML IV SCH ×2 (03:15→09:01)
[2022-05-07] MEDS: VANCOMYCIN 50 MG/ML ORAL SOLN 150 ML PO SCH ×4 (03:15→22:13)
[2022-05-07 04:30] VITALS: BP 112/70
[2022-05-07 05:32] LABS: HEMATOCRIT 33 % (40-54); HEMOGLOBIN 10.8 g/dL (13.3-17.7); MEAN CORPUSCULAR HEMOGLOBIN 35 pg (25-34); MEAN CORPUSCULAR HGB CONC 33 g/dL (32-36); MEAN CORPUSCULAR VOLUME 108 fL (80-99); MEAN PLATELET VOLUME 9.8 fL (9.0-12.2); PLATELET COUNT 274 10^3/uL (130-400)
[2022-05-07 05:46] LABS: POTASSIUM 2.8 MMOL/L (3.6-5.0)
[2022-05-07 05:47] LABS: CALCIUM 8.2 MG/DL (8.5-10.1)
[2022-05-07 05:52] LABS: CREATININE SERUM 0.57 MG/DL (0.60-1.30)
[2022-05-07] MEDS: LACTATED RINGERS 1,000 ML IV SCH ×2 (06:33→16:28)
--- NOTE | 2022-05-07 07:52 | Progress Note - Surgery ---
ISAIAH MCCAULEY Arnulfo 05/07/22 0752: Subjective Date Seen by a Provider: May 07, 2022 Time Seen by a Provider: 06:41 Subjective/Events-last exam Mr. Ma is being followed for abdominal pain with mild colitis. This morning he denies abdominal pain but endorses generalized abdominal bloating. He reports around 5 bowel movements overnight. He says they were all loose diarrhea-like stools. He denies melena or hematochezia. He denies nausea or vomiting. He does endorse a subjective fever. He thinks he is improving and is tolerating his clear liquid diet. Review of Systems General: No Chills; Other (Subjective fever) HEENT: No Head Aches, No Visual Changes Pulmonary: No Dyspnea, No Cough Cardiovascular: No: Chest Pain, Palpitations Gastrointestinal: Diarrhea; No: Nausea, Vomiting, Abdominal Pain, Melena, Hematochezia Neurological: No: Weakness, Confusion Focused Exam Lactate Level 05/05/22 07:25: Lactic Acid Level 1.57 Objective Exam Vital Signs Date Time Temp Pulse Resp B/P (MAP) Pulse Ox O2 Delivery O2 Flow Rate FiO2 05/07/22 04:30 36.5 81 18 112/70 (84) 97 Room Air 05/06/22 23:17 36.8 76 18 101/59 (73) 97 Room Air 05/06/22 22:21 Room Air 05/06/22 22:10 37.2 05/06/22 20:00 Room Air 05/06/22 19:49 37.9 82 18 105/57 (73) 97 Room Air 05/06/22 16:23 37.6 79 18 102/67 (79) 95 Room Air 05/06/22 11:46 37.7 81 19 100/61 (74) 97 Room Air 05/06/22 08:00 Room Air I & O 05/07/22 07:00 Intake Total 3185 ml Output Total 825 ml Balance 2360 ml Capillary Refill : Less Than 3 Seconds General Appearance: No Apparent Distress, Thin HEENT: PERRL/EOMI, Moist Mucous Membranes Neck: Non Tender, Supple Respiratory: Chest Non Tender, Lungs Clear, Normal Breath Sounds, No Accessory Muscle Use, No Respiratory Distress Cardiovascular: Regular Rate, Rhythm, No Murmur, Normal Peripheral Pulses Peripheral Pulses: 2+ Radial Pulses (R), 2+ Radial Pulses (L) Gastrointestinal: normal bowel sounds, non tender, soft; No distended (Patient reports bloating), No guarding, No rebound; other Extremity: Other (bilateral BKA with bandages in place) Neurologic/Psychiatric: Alert, Oriented x3, No Motor/Sensory Deficits, Normal Mood/Affect Skin: Normal Color, Warm/Dry Results Lab Laboratory Tests 05/07/22 05:20: White Blood Count 8.0, Red Blood Count 3.06L, Hemoglobin 10.8L, Hematocrit 33L, Mean Corpuscular Volume 108H, Mean Corpuscular Hemoglobin 35H, Mean Corpuscular Hemoglobin Concent 33, Red Cell Distribution Width 15.2H, Platelet Count 274, Mean Platelet Volume 9.8, Sodium Level 135, Potassium Level 2.8L, Chloride Level 104, Carbon Dioxide Level 22, Anion Gap 9, Blood Urea Nitrogen 2L, Creatinine 0.57L, Estimat Glomerular Filtration Rate 126, BUN/Creatinine Ratio 4, Glucose Level 95, Calcium Level 8.2L Microbiology 05/05/22 Blood Culture - Preliminary, Resulted No growth Assessment/Plan Assessment/Plan Assessment/Plan Lower abdominal pain Colitis as seen on CT H/o bilateral BKA Anemia likely dilutional Hypokalemia 2.8 this morning Continue pip/tazo and vancomycin Continue clear liquid diet Wound care daily Continue IVF Consider potassium replacement CHASE FERNANDEZ DO 05/07/22 1605: Subjective Subjective/Events-last exam Patient abdominal pain improving. Having diarrhea and has some bloating. Having multiple diarrhea stools. He does not have any nausea or vomiting. Denies any fever. Denies any sweats chills shortness of breath or chest pain. Patient lower extremity is doing okay. No new complaints. Objective Exam General Appearance: No Apparent Distress, Thin HEENT: PERRL/EOMI, Normal ENT Inspection Neck: Non Tender, Supple Respiratory: Chest Non Tender, No Accessory Muscle Use, No Respiratory Distress Cardiovascular: Regular Rate, Rhythm, No JVD Gastrointestinal: soft, tenderness (Minimal) Extremity: Other (bilateral BKA with good granulation tissue coming in) Neurologic/Psychiatric: Alert, Oriented x3, No Motor/Sensory Deficits, Normal Mood/Affect Skin: Normal Color, Warm/Dry Lymphatic: No Adenopathy Assessment/Plan Assessment/Plan Assessment/Plan Lower abdominal pain Colitis Diarrhea C. difficile positive Recent history of bilateral BKA Continue with antibiotics. We will advance to full liquid diet. Continue wound care for bilateral below-knee imitation Supervisory-Addendum Brief Verification & Attestation Participated in pt care: history, MDM, physical Personally performed: exam, history, MDM, supervision of care Care discussed with: Medical Student Procedures: n/a Results interpretation: Verified all documentation Verification and Attestation of Medical Student E/M Service A medical student performed and documented this service in my presence. I reviewed and verified all information documented by the medical student and made modifications to such information, when appropriate. I personally performed the physical exam and medical decision making. Chase Fernandez, May 07, 2022,16:05 ISAIAH MCCAULEY May 07, 2022 07:52 CHASE FERNANDEZ DO May 07, 2022 16:05
[2022-05-07 08:17] VITALS: BP 100/61
[2022-05-07] MEDS: APIXABAN 5 MG (ELIQUIS) TABLET PO SCH ×2 (09:03→20:24)
[2022-05-07] MEDS: PANTOPRAZOLE 40 MG (PROTONIX) VIAL IV SCH (09:04)
[2022-05-07 11:55] VITALS: BP 96/62
[2022-05-07 15:47] VITALS: BP 108/61
--- NOTE | 2022-05-07 17:24 | Progress Note - Hospitalist ---
Subjective HPI/CC On Admission Date Seen by Provider: May 07, 2022 Time Seen by Provider: 10:35 Alex Ma is a 41 year old male with PMH PAD, recent bilateral BKA, DVT on Eliquis, who presented with abdominal pain. He has also been very nauseous. He denies vomiting. He denies diarrhea. He denies fevers and chills. He denies ch est pain. He denies shortness of breath. He was just discharged a couple days ago from the inpatient rehab unit after a hospitalization for bilateral BKA. Subjective/Events-last exam His diarrhea is improving. He denies pain. He has no other complaints. Focused Exam Lactate Level 05/05/22 07:25: Lactic Acid Level 1.57 Objective Exam Vital Signs Vital Signs Date Time Temp Pulse Resp B/P (MAP) Pulse Ox O2 Delivery O2 Flow Rate FiO2 05/07/22 15:47 36.0 63 18 108/61 (77) 96 Room Air Capillary Refill : Less Than 3 Seconds General Appearance: No Apparent Distress, WD/WN Respiratory: Lungs Clear, No Respiratory Distress Cardiovascular: Regular Rate, Rhythm, No Murmur Gastrointestinal: Normal Bowel Sounds, Soft Extremity: Pedal Edema, Other (bilateral BKA) Neurologic/Psychiatric: Alert, Normal Mood/Affect Results/Procedures Lab Laboratory Tests 05/07/22 05:20 Patient resulted labs reviewed. Imaging: Reviewed Imaging Report Assessment/Plan Assessment and Plan Assess & Plan/Chief Complaint Sepsis C diff colitis CT consistent with rectosigmoid colitis Surgery following Oral Vancomycin Stop Zosyn Bilateral BKA PAD Wound care DVT Eliquis Tobacco abuse Nicotine patch Diagnosis/Problems Diagnosis/Problems (1) C. difficile colitis Status: Acute (2) Sepsis Status: Acute (3) Colitis Status: Acute (4) Acute deep vein thrombosis (DVT) of both lower extremities Status: Acute (5) Peripheral vascular disease Status: Acute (6) S/P bilateral below knee amputation Status: Chronic (7) Tobacco abuse Status: Chronic RAMIN FLORES MD May 07, 2022 17:24
[2022-05-07 20:43] VITALS: BP 102/62
[2022-05-08] VITALS: BP 99/56
[2022-05-08] MEDS: VANCOMYCIN 50 MG/ML ORAL SOLN 150 ML PO SCH ×2 (04:19→09:12)
[2022-05-08 04:25] VITALS: BP 108/67
[2022-05-08 08:04] VITALS: BP 110/60
[2022-05-08] MEDS ORDERED: POTASSIUM CL 10MEQ/50ML IVPB 50 ML IV SCH (08:30)
[2022-05-08] MEDS ORDERED: KCL 20 MEQ TAB (K-DUR) PO SCH (08:30)
[2022-05-08] MEDS ORDERED: MAGNESIUM 1 GM/100 ML IVPB 100 ML IV SCH (08:30)
[2022-05-08 08:58] LABS: CALCIUM 8.6 MG/DL (8.5-10.1); CREATININE SERUM 0.56 MG/DL (0.60-1.30); MAGNESIUM 1.6 MG/DL (1.6-2.4); POTASSIUM 3.1 MMOL/L (3.6-5.0)
[2022-05-08] MEDS: APIXABAN 5 MG (ELIQUIS) TABLET PO SCH (09:11)
[2022-05-08] MEDS ORDERED: KCL 20 MEQ TAB (K-DUR) PO ONE ×2 (09:15→13:00)
[2022-05-08] MEDS ORDERED: MAGNESIUM 2 GM/50 ML IVPB 50 ML IV ONE (09:15)
--- NOTE | 2022-05-08 11:55 | Progress Note - Surgery ---
ISAIAH MCCAULEY 05/08/22 1155: Subjective Date Seen by a Provider: May 08, 2022 Time Seen by a Provider: 06:45 Subjective/Events-last exam Mr. Ma is being followed for abdominal pain with mild colitis. This morning he reports his nausea and vomiting have resolved but he is still having a large amount of diarrhea. He is tolerating liquids well. He denies abdominal pain but does endorse minor abdominal bloating. He is receiving wound care for his b/l BKA stumps. He has no other concerns this morning. Review of Systems General: No Chills, No Fatigue HEENT: No Head Aches, No Visual Changes Pulmonary: No Dyspnea, No Cough Cardiovascular: No: Chest Pain, Palpitations Gastrointestinal: Other (Bloating); No: Nausea, Vomiting, Abdominal Pain Neurological: No: Weakness, Confusion Objective Exam Vital Signs Date Time Temp Pulse Resp B/P (MAP) Pulse Ox O2 Delivery O2 Flow Rate FiO2 05/08/22 08:16 Room Air 05/08/22 08:04 36.8 65 18 110/60 (77) 100 Room Air 05/08/22 04:25 36.2 64 17 108/67 (81) 97 Room Air 05/08/22 00:00 36.5 61 16 99/56 (70) 99 Room Air 05/07/22 20:43 36.5 70 18 102/62 (75) 98 Room Air 05/07/22 20:00 Room Air 05/07/22 15:47 36.0 63 18 108/61 (77) 96 Room Air 05/07/22 11:55 36.2 72 18 96/62 (73) 98 Room Air I & O 05/08/22 07:00 Intake Total 3350 ml Output Total 1900 ml Balance 1450 ml Capillary Refill : Less Than 3 Seconds General Appearance: No Apparent Distress, WD/WN HEENT: PERRL/EOMI, Moist Mucous Membranes Neck: Non Tender, Supple Respiratory: Chest Non Tender, Lungs Clear, Normal Breath Sounds, No Accessory Muscle Use, No Respiratory Distress Cardiovascular: Regular Rate, Rhythm, No Murmur, Normal Peripheral Pulses Peripheral Pulses: 2+ Radial Pulses (R), 2+ Radial Pulses (L) Gastrointestinal: non tender, soft, other (Minor bloating) Extremity: Other (bilateral BKA) Neurologic/Psychiatric: Alert, Oriented x3, No Motor/Sensory Deficits, Normal Mood/Affect Skin: Normal Color, Warm/Dry Lymphatic: No Adenopathy Results Lab Laboratory Tests 05/08/22 05:12: Sodium Level 143, Potassium Level 3.1L, Chloride Level 105, Carbon Dioxide Level 24, Anion Gap 14, Blood Urea Nitrogen 3L, Creatinine 0.56L, Estimat Glomerular Filtration Rate 126, BUN/Creatinine Ratio 5, Glucose Level 98, Calcium Level 8.6, Magnesium Level 1.6 Microbiology 05/06/22 Fecal Leukocyte Stain - Final, Resulted 05/06/22 C. difficile DNA Amplification - Final, Resulted 05/06/22 C. difficile GDH Antigen & Toxins - Final, Resulted 05/06/22 Stool Culture, Resulted Pending 05/05/22 Blood Culture - Preliminary, Resulted No growth Assessment/Plan Assessment/Plan Assessment/Plan Lower abdominal pain Colitis as seen on CT cultures show positive C. diff H/o bilateral BKA Anemia likely dilutional Hypokalemia Plan Continue oral vancomycin Continue clear liquid diet. Advance as tolerated Wound care daily Continue IVF Consider potassium replacement CHASE FERNANDEZ DO 05/08/222030: Subjective Subjective/Events-last exam Patient abdominal pain resolved. No more pain. Having a lot of gas and diarrhea still. He thinks it is getting better though. Not having any nausea or vomiting. He is tolerating diet. Patient wanting to go home. Denies nausea vomiting fever sweats chills shortness of breath or chest pain. Objective Exam General Appearance: No Apparent Distress, WD/WN HEENT: PERRL/EOMI, Normal ENT Inspection Neck: Non Tender, Supple Respiratory: Chest Non Tender, No Accessory Muscle Use Cardiovascular: Regular Rate, Rhythm, No JVD Gastrointestinal: non tender, soft, other (Minor bloating) Extremity: Other (bilateral BKA) Neurologic/Psychiatric: Alert, Oriented x3, No Motor/Sensory Deficits, Normal Mood/Affect Skin: Normal Color, Warm/Dry Lymphatic: No Adenopathy Assessment/Plan Assessment/Plan Assessment/Plan Lower abdominal pain Colitis-Cdiff+ as seen on CT cultures show positive C. diff H/o bilateral BKA Anemia likely dilutional Advance diet as tolerated Wound care daily Oral Vanc Supervisory-Addendum Brief Verification & Attestation Participated in pt care: history, MDM, physical Personally performed: exam, history, MDM, supervision of care Care discussed with: Medical Student Procedures: n/a Results interpretation: Verified all documentation Verification and Attestation of Medical Student E/M Service A medical student performed and documented this service in my presence. I reviewed and verified all information documented by the medical student and made modifications to such information, when appropriate. I personally performed the physical exam and medical decision making. Chase Fernandez, May 08, 2022,20:29 ISAIAH MCCAULEY May 08, 2022 11:55 CHASE FERNANDEZ DO May 08, 2022 20:31
[2022-05-08 12:16] VITALS: BP 115/80
[2022-05-08] MEDS ORDERED: APIX5TAB PO (13:38)
[2022-05-08] MEDS ORDERED: VANC50SO PO (13:38)
[2022-05-08] MEDS ORDERED: RELABEL FOR HOME USE MC SCH (14:30)
[2022-05-08 15:12] VITALS: BP 115/80
[2022-05-08] MEDS ORDERED: VANCOMYCIN 50 MG/ML ORAL SOLN 150 ML PO SCH (15:15)
--- NOTE | 2022-05-08 15:24 | D/C HH Face to Face Order ---
D/C Face to Face Orders Instructions for Patient Via [facility], Patient Instructions/FollowUp: establish with [facility] for primary care physician in about a week Physician to follow Patient: [facility] Discharge Diet for Home: Regular Diet Patient Data-Allergies,Ht & Wt Patient Allergies: Coded Allergies: No Known Drug Allergies (Unverified , 08/04/21) He denies allergies to drugs and food, says he has seasonal allergies Home Health Need/Face to Face Date of Face to Face: May 08, 2022 Clinical Findings: Generalized weakness and fatigue, Muscle weakness I have seen Pt [id number]: Yes Discharged To: Home Diagnosis/Conditions: C diff colitis Bilateral BKA PAD DVT Tobacco abuse Problems/Diagnosis/Condition: (1) C. difficile colitis (2) S/P bilateral below knee amputation (3) Peripheral vascular disease (4) Tobacco abuse (5) Acute deep vein thrombosis (DVT) of both lower extremities Patient is Homebound due to: Violette fall risk due to instabilty Homebound Status Due to the above stated illness, injury or surgical procedure (medical condition or diagnosis) and associated clinical findings, the patient is homebound because of his/her inability to leave home except with aid of a supportive device and/or person AND leaving the home requires a considerable and taxing effort or is medically contraindicated. Pt req the following assistanc: Aid of another person, Wheelchair Home Health Nursing Orders Home Health Services Order: Nursing Services, [employer] Roboticist-Evaluate & Treat, Physical Therapy-Evaluate & Treat, Wound Care-Eval/Treat Therapy Orders Therapy Orders: OT (must have SN or PT order), Physical Therapy Therapy Specific Orders: Eval assistive deivces, Teach enviro modifications/safety, Increase strength/endurance Certify Stmt I certify that this patient is under my care and that I, a nurse practitioner or a physician; a virtual office assistant working with me, had a face to face encounter that - meets the physician face to face encounter requirements with this patient as dated. RAMIN FLORES MD May 08, 2022 15:20
--- NOTE | 2022-05-08 23:33 | Discharge Summary ---
Discharge Summary Hospital Course Problems/Dx: (1) C. difficile colitis Status: Acute (2) Sepsis Status: Acute (3) Colitis Status: Acute (4) Acute deep vein thrombosis (DVT) of both lower extremities Status: Acute (5) Peripheral vascular disease Status: Acute (6) S/P bilateral below knee amputation Status: Chronic (7) Tobacco abuse Status: Chronic Hospital Course Date of Admission: May 05, 2022 at 07:05 Admission Diagnosis : Sepsis due to colitis Family Physician/Provider: [facility] Date of Discharge: 05/08/22 Discharge Diagnosis: Sepsis due to C diff colitis Hospital Course: Alex Ma is a 42 year old male with PMH PAD, bilateral BKA, tobacco abuse, who was recently discharged from inpatient rehab after a hospitalization for bilateral BKA, who presented with abdominal pain and was admitted with sepsis due to colitis. He was started on IV Zosyn and oral vancomycin. Surgery was consulted and assisted with his care. His c diff testing was positive. He will complete a ten day course of oral vancomycin. He was set up with home health care. He needs to establish with a primary care physician at [facility]. He was set up with a commode. He was discharged home in stable condition. Labs and Pending Lab Test: Laboratory Tests 05/08/22 05:12: Sodium Level 143, Potassium Level 3.1L, Chloride Level 105, Carbon Dioxide Level 24, Anion Gap 14, Blood Urea Nitrogen 3L, Creatinine 0.56L, Estimat Glomerular Filtration Rate 126, BUN/Creatinine Ratio 5, Glucose Level 98, Calcium Level 8.6, Magnesium Level 1.6 Microbiology 05/06/22 Fecal Leukocyte Stain - Final, Resulted 05/06/22 C. difficile DNA Amplification - Final, Resulted 05/06/22 C. difficile GDH Antigen & Toxins - Final, Resulted 05/06/22 Stool Culture - Preliminary, Resulted Culture In Progress 05/05/22 Blood Culture - Preliminary, Resulted No growth Home Meds Active Firvanq (Vancomycin HCl) 50 Mg/Ml Soln.recon 1 Cap PO Q6H 7 Days Eliquis (Apixaban) 5 Mg Tablet 5 Mg PO BID 30 Days Reported Ibuprofen 200 Mg Tablet 400 Mg PO Q8H PRN TAKES 2 (200MG) TABS Tylenol Extra Strength (Acetaminophen) 500 Mg Tablet 1,000 Mg PO Q8H PRN TAKES 2 (500MG) TABS Assessment/Pt Instructions See instructions Discharge Planning: >30 minutes discharge planning Discharge Instructions Discharge Diet: No Restrictions Activity as Tolerated: Yes Consultations Surgery Discharge Physical Examination Vital Signs Vital Signs Date Time Temp Pulse Resp B/P (MAP) Pulse Ox O2 Delivery O2 Flow Rate FiO2 05/08/22 15:12 37.0 80 18 115/80 95 Room Air General Appearance: No Apparent Distress, Chronically ill Respiratory: Lungs Clear, No Respiratory Distress Cardiovascular: Regular Rate, Rhythm, No Murmur Gastrointestinal: Normal Bowel Sounds, Soft Extremity: Normal Inspection, No Pedal Edema Skin: Normal Color, Warm/Dry Neurologic/Psychiatric: Alert, Normal Mood/Affect Allergies: Coded Allergies: No Known Drug Allergies (Unverified , 08/04/21) He denies allergies to drugs and food, says he has seasonal allergies Copy Copies To 1: [facility] [place] Discharge Summary Date of Admission May 05, 2022 at 07:05 Date of Discharge May 08, 2022 at 15:13 Discharge Date: May 08, 2022 Discharge Time: 15:13 Admission Diagnosis Sepsis due to colitis Consults/Procedures Consulations Surgery Discharge Diagnosis Sepsis C diff colitis (1) C. difficile colitis Status: Acute (2) Sepsis Status: Acute (3) Colitis Status: Acute (4) Acute deep vein thrombosis (DVT) of both lower extremities Status: Acute (5) Peripheral vascular disease Status: Acute (6) S/P bilateral below knee amputation Status: Chronic (7) Tobacco abuse Status: Chronic RAMIN FLORES MD May 08, 2022 23:32
== END 2022-05-08 15:13 | disposition home health service (06) | DRG 872 ==
LOC: EDUNIT# 02:22 → ER 02:25 → 4TH 07:05
PROVIDERS: ADMIT Internal Medicine; ATTEND Surgery
DX: A41.89 Other specified sepsis (principal); A04.72 Enterocolitis due to Clostridium difficile, not specified as recurrent; E86.0 Dehydration; I73.1 Thromboangiitis obliterans [Buerger's disease]; D64.9 Anemia, unspecified; E87.6 Hypokalemia; F17.210 Nicotine dependence, cigarettes, uncomplicated; Z89.512 Acquired absence of left leg below knee; Z89.511 Acquired absence of right leg below knee; Z86.718 Personal history of other venous thrombosis and embolism
CPT/HCPCS: 36415; 71045; 74176; 80048; 80053; 83605; 83690; 83735; 85007; 85025; 85027; 85610; 85730; 86141; 87015; 87040; 87045; 87046; 87324; 87449; 87493; 87899; 89055

== ENCOUNTER 2023-03-02 01:46 | Observation (INO) | payer MEDICAID ==
[~2023-03-02 01:46] MED LIST changes: +IBUP-2473 PO; +LEVO750T PO; -LEVO750T39 PO; +VANC50SO PO
--- NOTE | 2023-03-02 02:05 | ED General ---
General Stated Complaint: DRESSING CHANGE Source of Information: Patient, EMS Exam Limitations: No Limitations History of Present Illness Date Seen by Provider: March 02, 2023 Time Seen by Provider: 01:49 Initial Comments Here by EMS from patient's home with concerns about soiled dressings. Apparently he was due to be transported to wound care to have dressing change on Friday but the transport team did not pick them up. Apparently the called EMS because he was sitting in soiled dressings to the stumps of his upper legs and wanted him transported for dressing change here. EMS reports that he stays in his wheelchair and because he has difficulty getting out, he will have bowel movements in the wheelchair and his legs will stick to the chair. Because of this, the transport team did not want to transport him per EMS and so he did not get the dressing change. Patient really did not want to come but his was insistent so he did. He is only complaining of needing dressing changes at this time. He does have chronic vascular disease and that ultimately resulted in multiple amputations along the legs bilateral and now he has AKA bilaterally. He has wounds to the posterior aspect of both upper stumps that are covered with soiled dressings. Denies fever or chills. Denies other concerns. Timing/Duration: 1-2 Days Severity: Moderate Associated Systoms: No Fever/Chills, No Nausea/Vomiting Allergies and Home Medications Allergies Coded Allergies: No Known Drug Allergies (Unverified , 08/04/21) He denies allergies to drugs and food, says he has seasonal allergies Patient Home Medication List Home Medication List Reviewed: Yes Acetaminophen (Tylenol Extra Strength) 500 Mg Tablet, 1,000 MG PO Q8H PRN for PAIN-MILD (1-4), (Reported) Entered as Reported by: KIERA DELACRUZ on 05/06/22 1031 Apixaban (Eliquis) 5 Mg Tablet, 5 MG PO BID Prescribed by: RAMIN FLORES on 05/08/22 1338 Ibuprofen (Ibuprofen) 200 Mg Tablet, 400 MG PO Q8H PRN for PAIN-MILD (1-4), (Reported) Entered as Reported by: KIERA DELACRUZ on 05/06/22 1031 Vancomycin HCl (Firvanq) 50 Mg/Ml Soln.recon, 1 CAP PO Q6H Prescribed by: RAMIN FLORES on 05/08/22 1338 Review of Systems Review of Systems Constitutional: see HPI; No chills, No fever EENTM: no symptoms reported Respiratory: No cough, No short of breath Cardiovascular: No chest pain, No palpitations Gastrointestinal: No nausea, No vomiting Skin: see HPI, lesions, other (Soiled dressings to bilateral legs posterior) Past [id number]-Rtyfzp-Pzeztz Hx Patient Social History Tobacco Use?: Yes Tobacco type used: Cigarettes Smoking Status: Current Everyday Smoker Immunizations Up To Date First/Initial COVID19 Vaccinat: DOESN'T PLAN ON TAKING IT Second COVID19 Vaccination Bear: DOESN'T PLAN ON TAKING IT Third COVID19 Vaccination Date: DOESN'T PLAN ON TAKING IT Seasonal Allergies Seasonal Allergies: Yes Past Medical History Surgery/Hospitalization HX: -bilateral foot surgerys/toe amputations - first 3 toes on each food removed -all teeth pulled/removed pad/dvt, psoraisis bi lat below the knee amputation Surgeries: Yes Abdominal, Amputation, Orthopedic Respiratory: No Cardiac: Yes (PAD; DVT'S ) Deep Vein Thrombosis, Peripheral Vascular Neurological: No Genitourinary: No Gastrointestinal: No Musculoskeletal: Yes (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) Amputee Endocrine: No HEENT: No (ALL TEETH REMOVED) Cancer: No Psychosocial: No Integumentary: Yes (CHRONIC LEG WOUNDS/GANGRENE) Psoriasis Blood Disorders: Yes (DVT'S) Family Medical History Reviewed Nursing Family Hx No Pertinent Family Hx, Other Conditions/Hx EXTREME NON-COMPLIANCE IN ALL ASPECTS OF CARE SOCIAL HISTORY: -SMOKES 2-3 PPD -ETOH--DRINKS 1.75 LITERS OF HARD LIQUOR DAILY--STATES LATELY HE HAS ONLY BEEN DRINKING "3 OR 4 GLASSES" OF HARD LIQUOR/DAY. 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 -ALL TEETH REMOVED -HERNIA REPAIR Physical Exam Vital Signs Vital Signs - First Documented 03/02/23 01:48 Temp 36.7 Pulse 102 Resp 16 B/P (MAP) 92/65 (74) Pulse Ox 95 O2 Delivery Room Air Capillary Refill : Height, Weight, BMI Height: '" Weight: lbs. oz. kg; 35.24 BMI Method: General Appearance: No Apparent Distress, Chronically ill Neck: Non Tender, Supple Respiratory: Lungs Clear, Normal Breath Sounds Cardiovascular: Regular Rate, Rhythm, No Murmur Gastrointestinal: Non Tender, Soft Neurologic/Psychiatric: Alert, Oriented x3 Skin: Other (Bilateral lower extremity dressings posterior that are both soiled with stool and drainage.) Progress/Results/Core Measures Suspected Sepsis SIRS Temperature: Pulse: Respiratory Rate: Blood Pressure / Mean: Results/Orders Vital Signs/I&O 03/02/23 01:48 Temp 36.7 Pulse 102 Resp 16 B/P (MAP) 92/65 (74) Pulse Ox 95 O2 Delivery Room Air Capillary Refill : Progress Note : Progress Note Seen and evaluated. I did take down the dressing posterior legs. He does have healing wounds and tunneled wound to the posterior left leg with a nontunneled wound on the right. Stool noted to be covering dressings and patient did have of adult diaper on that was soiled. We did remove those and initiate cleaning process. Nursing completed cleaning process. We did initiate dressing changes to both stumps. Wounds covered with Xeroform and then dressing and secured with Curlex bilateral. Patient tolerated procedure well with no complications. Feels much better afterwards. We are working on trying to find transport home. Patient has no further complaints and would like to go back home but has no ride. Monitor patient. 0409: Blood pressure normal and resting peacefully with normal heart rate. Asked again about any options for rides and she does not know any. We are looking for information related to a transport company with his insurance from any healthcare facility. We will see what we can figure out. Departure Impression Primary Impression: Chronic wound of extremity Additional Impression: Dressing change Disposition: 01 HOME, SELF-CARE Condition: Stable Departure-Patient Inst. Decision time for Depature: 04:10 Referrals: NO,LOCAL PHYSICIAN (PCP/Family) Primary Care Physician Patient Instructions: Wound Care ED Add. Discharge Instructions: You have chronic wounds to both legs. You need to continue wound care through your wound care clinic. Is very important to try to prevent soiling of the wounds. Keep dressings clean and dry. Follow-up with your doctor this week for recheck and further evaluation. Return for other concerns as needed. CURT HIGH MD March 02, 2023 02:05
[2023-03-02] MEDS ORDERED: HYDROcodone/APAP 5 MG/325 MG (LORTAB) TAB PO ONE (13:45)
[2023-03-02 21:07] LABS: BASOPHILS # (AUTO) 0.1 10^3/uL (0.0-0.1); BASOPHILS % (AUTO) 1 % (0-10); EOSINOPHILS # (AUTO) 0.4 10^3/uL (0.0-0.3); EOSINOPHILS % (AUTO) 8 % (0-10); HEMATOCRIT 39 % (40-54); HEMOGLOBIN 12.6 g/dL (13.3-17.7); LYMPHOCYTES # (AUTO) 1.7 10^3/uL (1.0-4.0); LYMPHOCYTES % (AUTO) 37 % (12-44); MEAN CORPUSCULAR HEMOGLOBIN 27 pg (25-34); MEAN CORPUSCULAR HGB CONC 33 g/dL (32-36); MEAN CORPUSCULAR VOLUME 84 fL (80-99); MEAN PLATELET VOLUME 8.9 fL (9.0-12.2); MONOCYTES # (AUTO) 0.5 10^3/uL (0.0-1.0); MONOCYTES % (AUTO) 10 % (0-12); NEUTROPHILS % (AUTO) 44 % (42-75); PLATELET COUNT 249 10^3/uL (130-400); WHITE BLOOD COUNT 4.6 10^3/uL (4.3-11.0)
[2023-03-02 21:27] LABS: ERYTHROCYTE SEDIMENTATION RATE 12 MM/HR (0-15)
[2023-03-02 21:33] LABS: ALBUMIN 2.8 GM/DL (3.2-4.5); BILIRUBIN,TOTAL 0.3 MG/DL (0.1-1.0); CALCIUM 7.9 MG/DL (8.5-10.1); CREATININE SERUM 0.56 MG/DL (0.60-1.30); POTASSIUM 3.3 MMOL/L (3.6-5.0); TOTAL PROTEIN 5.6 GM/DL (6.4-8.2)
[2023-03-02 22:00] VITALS: BP 113/57
[2023-03-02] MEDS ORDERED: ONDANSETRON 4 MG/2 ML (SDV) Z0FRAN IV PRN (22:15)
[2023-03-02] MEDS ORDERED: ACETAMINOPHEN 500 MG TAB (TYLENOL) PO PRN (22:15)
[2023-03-02] MEDS ORDERED: IBUPROFEN 800 MG (MOTRIN) TAB PO PRN (22:15)
[2023-03-02] MEDS: fentaNYL INJ 100 MCG/2 ML AMP IV PRN (22:46)
[2023-03-02] MEDS: CATHETER FLUSH 10 ML SYR IVP SCH (22:46)
[2023-03-03] VITALS: BP 125/62
[2023-03-03] MEDS: fentaNYL INJ 100 MCG/2 ML AMP IV PRN ×2 (02:11→08:36)
[2023-03-03 04:15] VITALS: BP 115/61
[2023-03-03 05:33] LABS: BASOPHILS % (AUTO) 1 % (0-10); EOSINOPHILS # (AUTO) 0.4 10^3/uL (0.0-0.3); EOSINOPHILS % (AUTO) 8 % (0-10); HEMATOCRIT 37 % (40-54); HEMOGLOBIN 11.9 g/dL (13.3-17.7); LYMPHOCYTES # (AUTO) 1.7 10^3/uL (1.0-4.0); LYMPHOCYTES % (AUTO) 38 % (12-44); MEAN CORPUSCULAR HEMOGLOBIN 27 pg (25-34); MEAN CORPUSCULAR HGB CONC 32 g/dL (32-36); MEAN CORPUSCULAR VOLUME 84 fL (80-99); MEAN PLATELET VOLUME 9.3 fL (9.0-12.2); MONOCYTES # (AUTO) 0.4 10^3/uL (0.0-1.0); MONOCYTES % (AUTO) 9 % (0-12); NEUTROPHILS # (AUTO) 1.9 10^3/uL (1.8-7.8); NEUTROPHILS % (AUTO) 43 % (42-75); PLATELET COUNT 225 10^3/uL (130-400); WHITE BLOOD COUNT 4.4 10^3/uL (4.3-11.0)
[2023-03-03 05:42] LABS: POTASSIUM 2.8 MMOL/L (3.6-5.0)
[2023-03-03 05:43] LABS: CALCIUM 7.7 MG/DL (8.5-10.1)
[2023-03-03 05:47] LABS: CREATININE SERUM 0.49 MG/DL (0.60-1.30)
[2023-03-03] MEDS ORDERED: KCL 20 MEQ TAB (K-DUR) PO ONE (08:00)
[2023-03-03 08:41] VITALS: BP 107/58
--- NOTE | 2023-03-03 08:45 | Wound Care Assessment ---
Wound Care Assessment Date Seen by Provider: March 03, 2023 Time Seen by Provider: 08:15 Chief Complaint Bilateral leg wounds HPI Alex Ma is a 42 yo male who presented to the emergency department with concern for nonhealing bilateral posterior leg wounds yesterday evening. He states the wounds have been present for around 1 year, around the same time he had bilateral AKA surgery (stump revision) performed at [facility]. He has been managing the wounds with Xeroform at home. He has concern for the left wound being deeper and larger than the right. Per ER notes he has both home health to assist with dressings and has been following with wound care with [facility] to assist in getting to appointments. However, his story has changed several times. Alex has an EXTENSIVE wound history with noncompliance in all aspects of care. He smokes 2-3 ppd and drinks up to 1.75L hard liquor daily (admits to 3-4 glasses daily currently). He has been quite irritable when I have counseled him in the past on lifestyle modifications to assist in wound healing. He admits to sitting in his wheelchair for most of the daily and soiling himself. He notes he is unable to do even the minimal activities of daily living to keep his wounds clean and promote healthy skin integrity. As a result, if these wounds do heal, he is high risk for continued development in the future. My advice is he move to a nursing facility. However, with his current lifestyle choices, I doubt this will happen. As such, we are limited in our ability to help Alex. Plan today is transition to silver alginate daily dressings. Will also target antibiotics accordingly. Past Medical History: Admits Deep Vein Thrombosis (bilateral legs), Admits Peripheral Artery Disease Smoking Status: Current Everyday Smoker Alcohol Use: Regular Use Review of Systems General: No Chills Gastrointestinal: No: Nausea, Vomiting Musculoskeletal: leg pain Neurological: No: Weakness, Numbness Exam Vital Signs Date Time Temp Pulse Resp B/P (MAP) Pulse Ox O2 Delivery O2 Flow Rate FiO2 03/03/23 04:15 36.2 71 18 115/61 (79) 96 Room Air Capillary Refill : Less Than 3 Seconds General Appearance: mild distress HEENT: PERRL/EOMI Skin Problem Location: lower extremities Right le.9x2.8x0.3 cm Stage 3 wound to the posterior leg stump. Wound with medium amount of serosanguinous drainage and flat margins. Granulation is large. Necrotic tissue is small. Epitheliazation is small. Left le.5x3.0x1.4 cm Stage 3 wound to the posterior leg stump. Wound with moderate amount of serosanguinous drainage and flat margins. Granulation is large. Necrotic tissue is small. Epitheliazation is small. Patient's wounds are odorous. Results Laboratory Tests 03/02/23 20:56: White Blood Count 4.6, Red Blood Count 4.63, Hemoglobin 12.6L, Hematocrit 39L, Mean Corpuscular Volume 84, Mean Corpuscular Hemoglobin 27, Mean Corpuscular Hemoglobin Concent 33, Red Cell Distribution Width 16.1H, Platelet Count 249, Mean Platelet Volume 8.9L, Immature Granulocyte % (Auto) 0, Neutrophils (%) (Auto) 44, Lymphocytes (%) (Auto) 37, Monocytes (%) (Auto) 10, Eosinophils (%) (Auto) 8, Basophils (%) (Auto) 1, Neutrophils # (Auto) 2.0, Lymphocytes # (Auto) 1.7, Monocytes # (Auto) 0.5, Eosinophils # (Auto) 0.4H, Basophils # (Auto) 0.1, Immature Granulocyte # (Auto) 0.0, Erythrocyte Sedimentation Rate 12, Sodium Level 136, Potassium Level 3.3L, Chloride Level 103, Carbon Dioxide Level 25, Anion Gap 8, Blood Urea Nitrogen 7, Creatinine 0.56L, Estimat Glomerular Filtration Rate 126, BUN/Creatinine Ratio 13, Glucose Level 97, Lactic Acid Level 0.80, Calcium Level 7.9L, Corrected Calcium 8.9, Total Bilirubin 0.3, Aspartate Amino Transf (AST/SGOT) 16, Alanine Aminotransferase (ALT/SGPT) 7, Alkaline Phosphatase 120, C-Reactive Protein High Sensitivity 1.02H, Total Protein 5.6L, Albumin 2.8L 03/03/23 05:25: White Blood Count 4.4, Red Blood Count 4.43, Hemoglobin 11.9L, Hematocrit 37L, Mean Corpuscular Volume 84, Mean Corpuscular Hemoglobin 27, Mean Corpuscular Hemoglobin Concent 32, Red Cell Distribution Width 16.0H, Platelet Count 225, Mean Platelet Volume 9.3, Immature Granulocyte % (Auto) 0, Neutrophils (%) (Auto) 43, Lymphocytes (%) (Auto) 38, Monocytes (%) (Auto) 9, Eosinophils (%) (Auto) 8, Basophils (%) (Auto) 1, Neutrophils # (Auto) 1.9, Lymphocytes # (Auto) 1.7, Monocytes # (Auto) 0.4, Eosinophils # (Auto) 0.4H, Basophils # (Auto) 0.0, Immature Granulocyte # (Auto) 0.0, Sodium Level 138, Potassium Level 2.8L, Chloride Level 106, Carbon Dioxide Level 20L, Anion Gap 12, Blood Urea Nitrogen 5L, Creatinine 0.49L, Estimat Glomerular Filtration Rate 131, BUN/Creatinine Ratio 10, Glucose Level 86, Calcium Level 7.7L Assessment/Plan/Dx A; 1. S/p bilateral AKA (h/o gangrene repeatedly) 2. Bilateral posterior leg wounds (non-pressure) 3. Alcohol abuse 4. Heavy tobacco abuse 5. Severe PAD 6. Bilateral LE DVT 7. Noncompliance with medications, follow up and lifestyle changes 8. MASD P: 1. Vashe cleansing with silver alginate dressing and allevyn BFD daily. Barrier ointment to periwound. 2. 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 3. Establish primary care. 4. STRONGLY suggest admission to nursing facility is necessary at this point in his life to prevent further gangrenous wounds from developing. Supervisory-Addendum Brief Verification & Attestation Participated in pt care: history, MDM, physical Personally performed: exam, history, MDM, supervision of care Care discussed with: Medical Student Procedures: n/a Results interpretation: Verified all documentation MD SPENCER Hernandez KELVIN March 03, 2023 08:45 HARLEEN SMITH MD March 03, 2023 14:38
[2023-03-03] MEDS ORDERED: HYPOCHLOROUS ACID/NaCl (VASHE) 250 ML IR PRN (10:45)
[2023-03-03 11:23] VITALS: BP 89/54
[2023-03-03] MEDS ORDERED: HYPOCHLOROUS ACID/NaCl (VASHE) 250 ML IR SCH (12:15)
[2023-03-03] MEDS ORDERED: PREG75CA75 PO (13:49)
[2023-03-03] MEDS ORDERED: ACHD5005 PO (13:49)
[2023-03-03] MEDS ORDERED: SENN8.6T17 PO (13:49)
[2023-03-03] MEDS ORDERED: CYCL5TAB PO (13:49)
[2023-03-03] MEDS ORDERED: LEVO750T PO (13:49)
[2023-03-03] MEDS: CATHETER FLUSH 10 ML SYR IVP SCH (14:59)
--- NOTE | 2023-03-03 17:12 | Short Stay Summary-Hospitalist ---
History of Present Illness HPI/Chief Complaint Alex Ma is a 42 year old male with PMH PAD, DVT, s/p bilateral AKA, who presented with wound problems. He was supposed to go to wound care but his ride did not show up. His was worried about his dirty dressings and called EMS. Transportation back home was unable to be obtained and he was admitted to observation. Wound care was consulted and assisted with his care. He was encourage to go to a fci facility but instead wanted to return home. Source: patient Exam Limitations: no limitations Date Seen 03/03/23 Time Seen by a Provider: 12:00 Attending Physician No,Local Physician PCP Admitting Physician: Katherine Wang MD Attending Physician: Ramin Carlton MD Referring Physician Date of Admission March 02, 2023 at 21:39 Home Medications & Allergies Home Medications Reviewed patient Home Medication Reconciliation performed by pharmacy medication reconciliations computer hardware technician and/or nursing. Patients Allergies have been reviewed. Allergies Allergies Coded Allergies No Known Drug Allergies ([id number]/9/21) He denies allergies to drugs and food, says he has seasonal allergies Past Nnvfaki-Jsocqu-Rtumez Hx Patient Social History Tobacco Use?: No Tobacco type used: Cigarettes Smoking Status: Current Everyday Smoker Alcohol Use?: Yes Alcohol type: Hard Liquor Additional alcohol type: VODKA Alcohol Frequency: Daily Pt feels they are or have been: No Immunizations Up To Date First/Initial COVID19 Vaccinat: DOESN'T PLAN ON TAKING IT Second COVID19 Vaccination Bear: DOESN'T PLAN ON TAKING IT Tetanus Booster (TDap): Less Than 5 Years Hepatitis A: Yes Hepatitis B: Yes Seasonal Allergies Seasonal Allergies: Yes Current Status Advance Directives: No Communicates: Verbally Primary Language: Prydeinig Preferred Spoken Language: Prydeinig Is interpretation needed?: No Past Medical History Surgeries: Abdominal, Amputation, Orthopedic Deep Vein Thrombosis, Peripheral Vascular Amputee Psoriasis Blood Disorders: Yes (DVT'S) Family Medical History Reviewed Nursing Family Hx No Pertinent Family Hx, Other Conditions/Hx EXTREME NON-COMPLIANCE IN ALL ASPECTS OF CARE SOCIAL HISTORY: -SMOKES 2-3 PPD -ETOH--DRINKS 1.75 LITERS OF HARD LIQUOR DAILY--STATES LATELY HE HAS ONLY BEEN DRINKING "3 OR 4 GLASSES" OF HARD LIQUOR/DAY. 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 -ALL TEETH REMOVED -HERNIA REPAIR Review of Systems Constitutional: see HPI Physical Exam Physical Exam Vital Signs Vital Signs - First Documented 03/02/23 01:48 Temp 36.7 Pulse 102 Resp 16 B/P (MAP) 92/65 (74) Pulse Ox 95 O2 Delivery Room Air Capillary Refill : Less Than 3 Seconds Height, Weight, BMI Height: '" Weight: lbs. oz. kg; 35.24 BMI Method: General Appearance: No Apparent Distress, Chronically ill Neck: Non Tender, Supple Respiratory: Lungs Clear, Normal Breath Sounds Cardiovascular: Regular Rate, Rhythm, No Murmur Gastrointestinal: Normal Bowel Sounds, Non Tender, Soft Extremity: Other (bilateral AKA) Neurologic/Psychiatric: Alert, Oriented x3 Skin: Other (Bilateral lower extremity dressings posterior that are both soiled with stool and drainage.) Results Results/Procedures Labs Laboratory Tests 03/02/23 20:56 03/03/23 05:25 Patient resulted labs reviewed. Short Stay Diagnosis Discharge Diagnosis-Short Stay Admission Diagnosis Chronic wounds of lower extremities Final Discharge Diagnosis Chronic wounds of lower extremities Conclusion Plan Chronic wounds of lower extremities Peripheral vascular disease s/p bilateral AKA Wound care consulted, assisted with his care Recommended admission to skilled facility, denied Continue outpatient wound care Diagnosis/Problems Diagnosis/Problems (1) Chronic wound of extremity Status: Acute (2) Dressing change Status: Acute (3) Status post above-knee amputation of both lower extremities Status: Acute (4) Peripheral vascular disease Status: Acute RAMIN CARLTON MD March 03, 2023 17:12
== END 2023-03-03 15:28 | disposition home or self-care (01) ==
LOC: EDUNIT# 01:46 → ER 01:48 → 4TH 21:39
PROVIDERS: ADMIT Family Medicine; ATTEND Internal Medicine
DX: L76.82 Other postprocedural complications of skin and subcutaneous tissue (principal); T81.89XA Other complications of procedures, not elsewhere classified, initial encounter; I73.9 Peripheral vascular disease, unspecified; L98.8 Other specified disorders of the skin and subcutaneous tissue; I82.503 Chronic embolism and thrombosis of unspecified deep veins of lower extremity, bilateral; F10.10 Alcohol abuse, uncomplicated; F17.210 Nicotine dependence, cigarettes, uncomplicated; Z91.199 Patient's noncompliance with other medical treatment and regimen due to unspecified reason; Z89.611 Acquired absence of right leg above knee; Z89.612 Acquired absence of left leg above knee
CPT/HCPCS: 80048; 80053; 83605; 85025 ×2; 85652; 86141; 87040; 87070; 87205; 93041; 96375; 96376; 99284; G0378; 36415

== ENCOUNTER 2023-03-13 04:14 | Inpatient (IN) | payer MEDICAID ==
[~2023-03-13] VITALS: Ht 146 cm; Wt 71.0 kg
[~2023-03-13 04:14] MED LIST changes: +CYCL5TAB PO; +PREG75CA75 PO; +SENN8.6T17 PO
[2023-03-13 04:57] LABS: BASOPHILS % (AUTO) 1 % (0-10); EOSINOPHILS # (AUTO) 0.6 10^3/uL (0.0-0.3); EOSINOPHILS % (AUTO) 9 % (0-10); HEMATOCRIT 45 % (40-54); HEMOGLOBIN 14.8 g/dL (13.3-17.7); LYMPHOCYTES # (AUTO) 2.1 10^3/uL (1.0-4.0); LYMPHOCYTES % (AUTO) 34 % (12-44); MEAN CORPUSCULAR HEMOGLOBIN 27 pg (25-34); MEAN CORPUSCULAR HGB CONC 33 g/dL (32-36); MEAN CORPUSCULAR VOLUME 82 fL (80-99); MEAN PLATELET VOLUME 8.9 fL (9.0-12.2); MONOCYTES # (AUTO) 0.5 10^3/uL (0.0-1.0); MONOCYTES % (AUTO) 8 % (0-12); NEUTROPHILS # (AUTO) 3.1 10^3/uL (1.8-7.8); NEUTROPHILS % (AUTO) 49 % (42-75); PLATELET COUNT 271 10^3/uL (130-400); WHITE BLOOD COUNT 6.3 10^3/uL (4.3-11.0)
[2023-03-13 04:58] LABS: BILIRUBIN,URINE NEGATIVE (NEGATIVE); CLARITY,URINE CLEAR; COLOR,URINE YELLOW; GLUCOSE, URINE (UA) NEGATIVE (NEGATIVE); KETONES,URINE NEGATIVE (NEGATIVE); LEUKOCYTE ESTERASE ,URINE NEGATIVE (NEGATIVE); NITRITE,URINE NEGATIVE (NEGATIVE); PROTEIN,URINE NEGATIVE (NEGATIVE)
[2023-03-13 05:04] LABS: BACTERIA,URINE NEGATIVE /HPF; SQUAMOUS EPITHELIAL CELL,UR 0-2 /HPF
[2023-03-13 05:06] LABS: ALBUMIN 3.5 GM/DL (3.2-4.5)
[2023-03-13 05:07] LABS: POTASSIUM 2.8 MMOL/L (3.6-5.0); PROTHROMBIN TIME PATIENT 13.1 SEC (12.2-14.7)
[2023-03-13 05:08] LABS: CALCIUM 8.7 MG/DL (8.5-10.1)
[2023-03-13 05:09] LABS: TOTAL PROTEIN 6.9 GM/DL (6.4-8.2)
[2023-03-13 05:11] LABS: BILIRUBIN,TOTAL 0.5 MG/DL (0.1-1.0)
[2023-03-13 05:13] LABS: CREATININE SERUM 0.6 MG/DL (0.60-1.30)
--- NOTE | 2023-03-13 05:19 | ED General ---
General Chief Complaint: Skin/Wound Problems Stated Complaint: WOUND CHECK Nursing Triage Note: PT ARRIVED VIA [facility] WITH C/O WOUNDS ON BACK OF LEFT AND RIGHT THIGH AND BUTTOX. Source of Information: Patient, EMS Exam Limitations: No Limitations History of Present Illness Date Seen by Provider: March 13, 2023 Time Seen by Provider: 04:14 Initial Comments Here by EMS with complaint of worsening wounds to the back of his legs. Patient lives at home with his and they have a terrible relationship apparently. He has been unable to get wound care. He is set up for [facility] appointment but is having problems with transportation. He has chronic leg wounds secondary to vascular insufficiency that required amputation to [id number] bilateral. Patient states that he has been unable to get any significant wound care over the last several weeks. He was seen here for dressing change by me earlier this month. Wound to both legs are definitely worse than previous and are leaking foul-smelling drainage from the central ulcers. Left leg stump is much worse than right. Timing/Duration: Getting Worse, Other (Chronic) Severity: Moderate Associated Systoms: No Cough, No Fever/Chills, No Nausea/Vomiting, No Weakness Allergies and Home Medications Allergies Coded Allergies: No Known Drug Allergies (Unverified , 08/04/21) He denies allergies to drugs and food, says he has seasonal allergies Patient Home Medication List Home Medication List Reviewed: Yes Cyclobenzaprine HCl (Cyclobenzaprine HCl) 5 Mg Tablet, 5 MG PO Q8H PRN for MUSCLE SPASMS, (Reported) Entered as Reported by: JO DAVISON on 03/03/23 1349 Hydrocodone/Acetaminophen (Hydrocodone-Acetamin 5-325 mg) 5 Mg-325 Mg Tablet, 1 EA PO Q6H PRN for PAIN-MODERATE (5-7), (Reported) Entered as Reported by: JO DAVISON on 03/03/23 1349 Levofloxacin (Levofloxacin) 750 Mg Tablet, 750 MG PO DAILY, (Reported) Entered as Reported by: JO DAVISON on 03/03/23 1349 Pregabalin (Pregabalin) 75 Mg Capsule, 75 MG PO BID PRN for PAIN-BREAKTHROUGH, (Reported) Entered as Reported by: JO DAVISON on 03/03/23 1349 Sennosides (Senna Laxative) 8.6 Mg Tablet, 8.6 MG PO DAILY, (Reported) Entered as Reported by: JO DAVISON on 03/03/23 6282 Review of Systems Review of Systems Constitutional: No chills, No fever; weakness EENTM: No nose congestion, No throat pain Respiratory: No cough, No short of breath Cardiovascular: No chest pain, No edema Gastrointestinal: diarrhea; No nausea, No vomiting Genitourinary: no symptoms reported Musculoskeletal: muscle pain Skin: change in color, lesions Past Eljpstr-Acclaz-Hruije Hx Patient Social History Tobacco Use?: Yes Tobacco type used: Cigarettes Substance use?: No Alcohol Use?: Yes Alcohol type: Hard Liquor Alcohol Frequency: Daily Immunizations Up To Date First/Initial COVID19 Vaccinat: DOESN'T PLAN ON TAKING IT Second COVID19 Vaccination Bear: DOESN'T PLAN ON TAKING IT Third COVID19 Vaccination Date: DOESN'T PLAN ON TAKING IT Seasonal Allergies Seasonal Allergies: Yes Past Medical History Surgery/Hospitalization HX: -bilateral foot surgerys/toe amputations - first 3 toes on each food removed -all teeth pulled/removed pad/dvt, psoraisis bi lat below the knee amputation Surgeries: Yes Abdominal, Amputation, Orthopedic Respiratory: No Cardiac: Yes (PAD; DVT'S ) Deep Vein Thrombosis, Peripheral Vascular Neurological: No Genitourinary: No Gastrointestinal: No Musculoskeletal: Yes (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) Amputee Endocrine: No HEENT: No (ALL TEETH REMOVED) Cancer: No Psychosocial: No Integumentary: Yes (CHRONIC LEG WOUNDS/GANGRENE) Psoriasis Blood Disorders: Yes (DVT'S) Family Medical History Reviewed Nursing Family Hx No Pertinent Family Hx, Other Conditions/Hx EXTREME NON-COMPLIANCE IN ALL ASPECTS OF CARE SOCIAL HISTORY: -SMOKES 2-3 PPD -ETOH--DRINKS 1.75 LITERS OF HARD LIQUOR DAILY--STATES LATELY HE HAS ONLY BEEN DRINKING "3 OR 4 GLASSES" OF HARD LIQUOR/DAY. 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 -ALL TEETH REMOVED -HERNIA REPAIR Physical Exam-Suspected Sepsis Physical Exam Vital Signs Vital Signs - First Documented 03/13/23 04:15 Temp 36.0 Pulse 80 B/P (MAP) 102/82 (89) Pulse Ox 98 O2 Delivery Room Air Capillary Refill : Blood Pressure Mean: 89 Height, Weight, BMI Height: '" Weight: lbs. oz. kg; 32.00 BMI Method: General Appearance: No Apparent Distress, Chronically ill HEENT: PERRL/EOMI, Pharynx Normal Neck: Non Tender, Supple Respiratory: Lungs Clear, Normal Breath Sounds Cardiovascular: Regular Rate, Rhythm, No Murmur Gastrointestinal: Non Tender, Soft Back: Normal Inspection, No CVA Tenderness, No Vertebral Tenderness Extremity: Other (Acute exacerbation of chronic leg wounds with foul-smelling drainage with redness and bloody drainage on left and wound on left worse than right. Also has redness along the posterior aspect of both legs and over buttocks with greatest area of concern centrally. Has bilateral [id number] amputation) Neurologic/Psychiatric: Alert, Oriented x3 Skin: ulcerations, other (Wounds as noted above.) Focused Exam Lactate Level 03/13/23 04:35: Lactic Acid Level 3.25*H Lactic Acid Level Laboratory Tests Test 03/13/23 04:35 Lactic Acid Level 3.25 MMOL/L (0.50-2.00) *H Progress/Results/Core Measures Suspected Sepsis SIRS Temperature: Pulse: 80 Respiratory Rate: Laboratory Tests 03/13/23 04:35: White Blood Count 6.3 Blood Pressure 102 /82 Mean: 89 03/13/23 04:35: Lactic Acid Level 3.25*H Laboratory Tests 03/13/23 04:35: Creatinine 0.60, INR Comment 1.0, Platelet Count 271, Total Bilirubin 0.5 Results/Orders Lab Results Laboratory Tests Test 03/13/23 04:35 03/13/23 04:47 Range/Units White Blood Count 6.3 4.3-11.0 10^3/uL Red Blood Count 5.49 4.30-5.52 10^6/uL Hemoglobin 14.8 13.3-17.7 g/dL Hematocrit 45 40-54 % Mean Corpuscular Volume 82 80-99 fL Mean Corpuscular Hemoglobin 27 25-34 pg Mean Corpuscular Hemoglobin Concent 33 32-36 g/dL Red Cell Distribution Width 16.2 H 10.0-14.5 % Platelet Count 271 130-400 10^3/uL Mean Platelet Volume 8.9 L 9.0-12.2 fL Immature Granulocyte % (Auto) 0 % Neutrophils (%) (Auto) 49 42-75 % Lymphocytes (%) (Auto) 34 12-44 % Monocytes (%) (Auto) 8 0-12 % Eosinophils (%) (Auto) 9 0-10 % Basophils (%) (Auto) 1 0-10 % Neutrophils # (Auto) 3.1 1.8-7.8 10^3/uL Lymphocytes # (Auto) 2.1 1.0-4.0 10^3/uL Monocytes # (Auto) 0.5 0.0-1.0 10^3/uL Eosinophils # (Auto) 0.6 H 0.0-0.3 10^3/uL Basophils # (Auto) 0.0 0.0-0.1 10^3/uL Immature Granulocyte # (Auto) 0.0 0.0-0.1 10^3/uL Prothrombin Time 13.1 12.2-14.7 SEC INR Comment 1.0 0.8-1.4 Activated Partial Thromboplast Time 34 24-35 SEC Sodium Level 141 135-145 MMOL/L Potassium Level 2.8 L 3.6-5.0 MMOL/L Chloride Level 105 98-107 MMOL/L Carbon Dioxide Level 21 21-32 MMOL/L Anion Gap 15 H 5-14 MMOL/L Blood Urea Nitrogen 5 L 7-18 MG/DL Creatinine 0.60 0.60-1.30 MG/DL Estimat Glomerular Filtration Rate 124 BUN/Creatinine Ratio 8 Glucose Level 93 70-105 MG/DL Lactic Acid Level 3.25 *H 0.50-2.00 MMOL/L Calcium Level 8.7 8.5-10.1 MG/DL Corrected Calcium 9.1 8.5-10.1 MG/DL Total Bilirubin 0.5 0.1-1.0 MG/DL Aspartate Amino Transf (AST/SGOT) 18 5-34 U/L Alanine Aminotransferase (ALT/SGPT) 12 0-55 U/L Alkaline Phosphatase 146 H 40-136 U/L Total Protein 6.9 6.4-8.2 GM/DL Albumin 3.5 3.2-4.5 GM/DL Urine Color YELLOW Urine Clarity CLEAR Urine pH 6.0 5-9 Urine Specific [place] <=1.005 1.016-1.022 Urine Protein NEGATIVE NEGATIVE Urine Glucose (UA) NEGATIVE NEGATIVE Urine Ketones NEGATIVE NEGATIVE Urine Nitrite NEGATIVE NEGATIVE Urine Bilirubin NEGATIVE NEGATIVE Urine Urobilinogen 0.2 < = 1.0 MG/DL Urine Leukocyte Esterase NEGATIVE NEGATIVE Urine RBC (Auto) NEGATIVE NEGATIVE Urine RBC NONE /HPF Urine WBC NONE /HPF Urine Squamous Epithelial Cells 0-2 /HPF Urine Crystals NONE /LPF Urine Bacteria NEGATIVE /HPF Urine Casts NONE /LPF Urine Mucus NEGATIVE /LPF Urine Culture Indicated CULTURE PENDING My Orders Orders - CURT HIGH MD Cbc With Automated Diff (03/13/23 04:34) Comprehensive Metabolic Panel (03/13/23 04:34) Blood Culture (03/13/23 04:34) Sputum Culture (03/13/23 04:34) Urinalysis (03/13/23 04:34) Urine Culture (03/13/23 04:34) Protime With Inr (03/13/23 04:34) Partial Thromboplastin Time (03/13/23 04:34) Ed Iv/Invasive Line Start (03/13/23 04:34) Vital Signs Adult Sepsis Patie Q15M (03/13/23 04:34) O2 (03/13/23 04:34) Remove Rings In Anticipation O (03/13/23 04:34) Wound Culture (03/13/23 04:34) Lactic Acid Analyzer (03/13/23 04:34) Lactated Ringers (Lr 1000 Ml Iv Solution (03/13/23 05:33) Potassium Chloride (Tablet) (K Dur Table (03/13/23 05:45) Piperacillin Sodium/Tazobactam (Zosyn Vi (03/13/23 05:45) Fentanyl Inj (Sublimaze Injection) (03/13/23 05:33) Ns Iv 1000 Ml (Sodium Chloride 0.9%) (03/13/23 06:00) Medications Given in ED Current Medications Medications Dose Ordered Sig/Bill Route Start Time Stop Time Status Last Admin Dose Admin Piperacillin Sod/ Tazobactam Sod 4.5 gm/Sodium Chloride 100 ml @ 200 mls/hr ONCE ONCE IV 03/13/23 05:45 03/13/23 06:14 03/13/23 05:49 200 MLS/HR Potassium Chloride 40 meq ONCE ONCE PO 03/13/23 05:45 03/13/23 05:46 DC 03/13/23 05:50 40 MEQ Sodium Chloride 1,000 ml @ 0 mls/hr Q0M ONCE IV 03/13/23 06:00 03/13/23 06:01 DC 03/13/23 06:05 1,000 MLS/HR Vital Signs/I&O 03/13/23 04:15 Temp 36.0 Pulse 80 B/P (MAP) 102/82 (89) Pulse Ox 98 O2 Delivery Room Air Capillary Refill : Blood Pressure Mean: 89 Progress Note : Progress Note Seen and evaluated. Quick evaluation of wounds reveals foul-smelling drainage from wounds especially of the left leg and to some extent the right leg. Patient reports difficulty in wound care and has not had appropriate wound care for several days at least. We will go ahead and initiate sepsis work-up and get wound culture of the left leg. Wound cleaning done by nursing with copious sterile saline wash and area around wound cleaned of feces and drainage with bath wipes. Wounds were covered with Xeroform and gauze and secured with Curlex. IV established and labs including CBC, CMP, coags, UA, blood cultures and lactic acid ordered as well as aforementioned wound culture. Chest x-ray not indicated on this work-up. Monitor patient. Differential diagnosis includes acute infection of chronic leg wounds. Skin breakdown posterior legs and buttocks. Electrolyte abnormality. Dehydration. 0525: Labs reviewed and show grossly normal CBC and coags. Chemistries show low potassium and we will order KCl 40 meq p.o. UA grossly negative. Patient will need admission for antibiotics and further care of wounds with possible surgical consult. 0538: I have ordered Zosyn 4.5 g IV as lactic acid is 3.25. While this could be from poor nutrition, patient's wounds are concerning. Given that, we will go ahead and treat. I did discuss the case with Dr. Centeno. He accepts patient for admission, inpatient status. Bridge orders and sepsis order set initiated. LR 1 L bolus ordered and fentanyl 50 mcg IV ordered. Patient will need social work consult due to living situation at home and transportation concerns. Wound care consult was also ordered due to to need for dressing changes and Dr. Fernandez was consulted in the morning. Dr. Fernandez is his established surgeon and has done his previous amputations. 0600: Patient noted to have a few blood pressures in the row that were in the 80s. Due to lower blood pressure and elevated lactic acid, we will increase IV bolus to 2 L with 1 L of normal saline and 1 L of LR ordered. Antibiotics as discussed already. We have upgraded his admission to the ICU. Patient's current blood pressure is 94/53 with a MAP of 78. Previous blood pressure was over 100 systolic with previous blood pressures before that in the 80s systolic. Patient is in no respiratory distress. Pending transfer to the ICU. I attest a focused exam at this time. 0614: Report has been given to eICU physician on-call. We discussed current findings, evaluation, therapies and current status. Critical Care Note Critical Care Start Time: 04:14 Stop Time: 06:14 Total Time (minutes) 30 minutes excluding separately billable procedures. See progress note for details. Departure Communication (Admissions) Time/Spoke to Admitting Phy: 05:38 Impression Primary Impression: Infected ulcer of skin Qualified Codes: L98.499 - Non-pressure chronic ulcer of skin of other sites with unspecified severity; L08.9 - Local infection of the skin and subcutaneous tissue, unspecified Additional Impressions: Decubitus ulcer, infected Qualified Codes: L89.90 - Pressure ulcer of unspecified site, unspecified stage; L08.9 - Local infection of the skin and subcutaneous tissue, unspecified Elevated lactic acid level Hypokalemia Severe sepsis Disposition: 09 ADMITTED INPATIENT Condition: Stable Admissions Decision to Admit Reason: Admit from ER (General) Decision to Admit/Date: March 13, 2023 Time/Decision to Admit Time: 05:38 Departure-Patient Inst. Referrals: NO,LOCAL PHYSICIAN (PCP/Family) Primary Care Physician CURT HIGH MD March 13, 2023 05:19
[2023-03-13] MEDS ORDERED: fentaNYL INJ 100 MCG/2 ML AMP IVP STA (05:33)
[2023-03-13] MEDS ORDERED: LACTATED RINGERS 1,000 ML IV STA (05:33)
[2023-03-13] MEDS ORDERED: KCL 20 MEQ TAB (K-DUR) PO ONE (05:45)
[2023-03-13] MEDS ORDERED: PIPERACILLIN SODIUM/TAZOBACTAM 4.5 GM in NS (IVPB) 100 ML IV ONE (05:45)
[2023-03-13] MEDS ORDERED: NS IV 1000 ML 1,000 ML IV ONE (06:00)
[2023-03-13] MEDS ORDERED: EPINEPHrine 1 MG INJECTION 4 MG in NS (IVPB) 248 ML IV SCH (07:00)
[2023-03-13] MEDS ORDERED: VANCOMYCIN INJECTION 0.1 MG in NS (IVPB) 250 ML IV SCH (07:00)
[2023-03-13] MEDS ORDERED: ONDANSETRON 4 MG/2 ML (SDV) Z0FRAN IVP PRN (07:00)
[2023-03-13] MEDS ORDERED: VANCOMYCIN 1250 MG/NS 250 ML PREMIX IV NR (08:00)
[2023-03-13] MEDS: POTASSIUM CL 10MEQ/50ML IVPB 50 ML IV SCH ×6 (08:06→13:56)
[2023-03-13] MEDS: NOREPINEPHRINE 8 MG/250 ML 250 ML IV SCH (08:06)
[2023-03-13] MEDS: VASOPRESSIN INJECTION 20 UNIT in NS (IVPB) 100 ML IV SCH ×2 (08:06→18:21)
[2023-03-13] MEDS: NS IV 1000 ML 1,000 ML IV SCH ×3 (08:06→23:04)
--- NOTE | 2023-03-13 08:16 | Consultation - Surgery ---
KAT PENA 03/13/23 0816: History of Present Illness History of Present Illness Patient Consulted On(bimal/time) 03/13/23 08:15 Date Seen by Provider: March 13, 2023 Time Seen by Provider: 08:15 Reason for Visit: b/l lower extremity wound care History of Present Illness Consult for Dr. Garcia CC: b/l LE wound infection Pt is a 42yo male with history of b/l AKA, and non-compliance, presenting today with c/o both his legs having posterior ulcerations and purulent foul smelling drainage. He says he is set up to start care with a new PCP Bettina Silverio at [facility], but has yet to meet her and his made him come into the hospital because his wounds were getting to be beyond their ability to care for. He denies any pain today at rest, or any other associated symptoms. He had just finished eating breakfast when he was examined, denies /n/v/d/f/c, chest pain, or sob. Allergies and Home Medications Allergies Coded Allergies: No Known Drug Allergies (Unverified , 08/04/21) He denies allergies to drugs and food, says he has seasonal allergies Patient Home Medication List Cyclobenzaprine HCl (Cyclobenzaprine HCl) 5 Mg Tablet, 5 MG PO Q8H PRN for MUSCLE SPASMS, (Reported) Entered as Reported by: JO DAVISON on 03/03/231348 Last Action: Converted Pregabalin (Pregabalin) 75 Mg Capsule, 75 MG PO BID PRN for PAIN-BREAKTHROUGH, (Reported) Entered as Reported by: JO DAVISON on 03/03/231348 Last Action: Continued Sennosides (Senna Laxative) 8.6 Mg Tablet, 8.6 MG PO DAILY, (Reported) Entered as Reported by: JO DAVISON on 03/03/231348 Last Action: Held Past Oxvvjwj-Ebkcvd-Eajmaq Hx Patient Social History Smoking Status: Current Everyday Smoker Alcohol Use?: Yes Have you traveled recently?: No Seasonal Allergies Seasonal Allergies: Yes Surgeries History of Surgeries: Yes Surgeries: Abdominal, Amputation, Orthopedic Respiratory History of Respiratory Disorde: No Cardiovascular History of Cardiac Disorders: Yes (PAD; DVT'S ) Cardiac Disorders: Deep Vein Thrombosis, Peripheral Vascular Neurological History of Neurological Disord: No Genitourinary History of Genitourinary Disor: No Gastrointestinal History of Gastrointestinal Di: No Musculoskeletal History of Musculoskeletal Dis: Yes (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) Musculoskeletal Disorders: Amputee Endocrine History of Endocrine Disorders: No HEENT History of HEENT Disorders: No (ALL TEETH REMOVED) Cancer History of Cancer: No Psychosocial History of Psychiatric Problem: No Integumentary History of Skin or Integumenta: Yes (CHRONIC LEG WOUNDS/GANGRENE) Skin/Integumentary Disorders: Psoriasis Blood Transfusions History of Blood Disorders: Yes (DVT'S) Family Medical History Significant Family History: No Pertinent Family Hx, Other Conditions/Hx Review of Systems-General Constitutional: No chills, No fever EENTM: No blurred vision, No vision loss, No hoarseness, No throat pain Respiratory: No cough, No dyspnea on exertion, No short of breath Cardiovascular: No chest pain, No palpitations Gastrointestinal: No abdominal pain, No diarrhea, No nausea, No vomiting Genitourinary: No dysuria, No incontinence Musculoskeletal: No joint pain, No muscle pain Skin: lesions (ulcerations on both posterior thighs Left > Right); No lumps, No pruritus Psychiatric/Neurological: Denies Headache, Denies Numbness, Denies Paresthesia Physical Exam-General Problems Physical Exam Vital Signs Vital Signs - First Documented 03/13/23 04:15 Temp 36.0 Pulse 80 B/P (MAP) 102/82 (89) Pulse Ox 98 O2 Delivery Room Air Capillary Refill : General Appearance: WD/WN, no apparent distress HEENT: PERRL/EOMI; No photophobia Neck: non-tender, supple Respiratory: chest non-tender, no respiratory distress, no accessory muscle use Cardiovascular: regular rate, rhythm, no edema, no murmur Gastrointestinal: non tender, soft; No distended, No guarding, No rebound Back: no CVA tenderness, no vertebral tenderness Extremities: No normal inspection; inflammation, other (b/l AKA, ulcerations on both posterior thighs Left > Right) Neurologic/Psychiatric: alert, oriented x 3 Skin: warm/dry, other (b/l LE ulcerations/ Inflammation) Lymphatic: no adenopathy (ant. cervical) Data Review Labs Laboratory Tests 03/13/23 04:35: White Blood Count 6.3, Red Blood Count 5.49, Hemoglobin 14.8, Hematocrit 45, Mean Corpuscular Volume 82, Mean Corpuscular Hemoglobin 27, Mean Corpuscular Hemoglobin Concent 33, Red Cell Distribution Width 16.2H, Platelet Count 271, Mean Platelet Volume 8.9L, Immature Granulocyte % (Auto) 0, Neutrophils (%) (Auto) 49, Lymphocytes (%) (Auto) 34, Monocytes (%) (Auto) 8, Eosinophils (%) (Auto) 9, Basophils (%) (Auto) 1, Neutrophils # (Auto) 3.1, Lymphocytes # (Auto) 2.1, Monocytes # (Auto) 0.5, Eosinophils # (Auto) 0.6H, Basophils # (Auto) 0.0, Immature Granulocyte # (Auto) 0.0, Prothrombin Time 13.1, INR Comment 1.0, Activated Partial Thromboplast Time 34, Sodium Level 141, Potassium Level 2.8L, Chloride Level 105, Carbon Dioxide Level 21, Anion Gap 15H, Blood Urea Nitrogen 5L, Creatinine 0.60, Estimat Glomerular Filtration Rate 124, BUN/Creatinine Ratio 8, Glucose Level 93, Lactic Acid Level 3.25*H, Calcium Level 8.7, Corrected Calcium 9.1, Total Bilirubin 0.5, Aspartate Amino Transf (AST/SGOT) 18, Alanine Aminotransferase (ALT/SGPT) 12, Alkaline Phosphatase 146H, Total Protein 6.9, Albumin 3.5 03/13/23 04:47: Urine Color YELLOW, Urine Clarity CLEAR, Urine pH 6.0, Urine Specific [place] <=1.005, Urine Protein NEGATIVE, Urine Glucose (UA) NEGATIVE, Urine Ketones NEGATIVE, Urine Nitrite NEGATIVE, Urine Bilirubin NEGATIVE, Urine Urobilinogen 0.2, Urine Leukocyte Esterase NEGATIVE, Urine RBC (Auto) NEGATIVE, Urine RBC NONE, Urine WBC NONE, Urine Squamous Epithelial Cells 0-2, Urine Crystals NONE, Urine Bacteria NEGATIVE, Urine Casts NONE, Urine Mucus NEGATIVE, Urine Culture Indicated CULTURE PENDING 03/13/23 06:57: Lactic Acid Level 3.88*H Assessment/Plan Assessment/Plan Assessment/Plan b/l ulcerations posterior thighs Left > Right PAD pain * No necrotic tissues, foreign bodies, or abscess seen on examination * no indication for debridement or other surgical interventions * cont. current abx regimen, along with home meds * Pain med management currently reported as sufficient * refer care to service desk specialist Lactic Acidosis Hypokalemia * cont. IVF regimen as is currently * K+ supplementation CARLOSCHASE Kerri DO 03/13/23 3051: History of Present Illness History of Present Illness History of Present Illness Patient is a 42 year old male known to me and has bilateral above knee amputations. He has poor compliance and had home health coming to help with wound care. Patient states they won't come any more and he has not had wound dr schwab changed for a week. He states the wounds may be draining more. No abdominal pain. WBC normal. Elevated lactic acid. Admits to daily alcohol use. Allergies and Home Medications Allergies Coded Allergies: No Known Drug Allergies (Unverified , 08/04/21) He denies allergies to drugs and food, says he has seasonal allergies Patient Home Medication List Home Medication List Reviewed: Yes Cyclobenzaprine HCl (Cyclobenzaprine HCl) 5 Mg Tablet, 5 MG PO Q8H PRN for MUSCLE SPASMS, (Reported) Entered as Reported by: JO DAVISON on 03/03/231348 Last Action: Converted Pregabalin (Pregabalin) 75 Mg Capsule, 75 MG PO BID PRN for PAIN-BREAKTHROUGH, (Reported) Entered as Reported by: JO DAVISON on 03/03/231348 Last Action: Continued Sennosides (Senna Laxative) 8.6 Mg Tablet, 8.6 MG PO DAILY, (Reported) Entered as Reported by: JO DAVISON on 03/03/231348 Last Action: Held Past Ojwjyqe-Iodeib-Azmbjo Hx Reviewed Nursing Assessment Reviewed/Agree w Nursing PMH: Yes Family Medical History Significant Family History: No Pertinent Family Hx Review of Systems-General Constitutional: No chills, No fever EENTM: No blurred vision, No vision loss, No hoarseness Respiratory: No cough, No dyspnea on exertion, No short of breath Cardiovascular: No chest pain, No palpitations Gastrointestinal: No abdominal pain, No diarrhea, No nausea, No vomiting Genitourinary: No dysuria, No incontinence Musculoskeletal: No joint pain, No muscle pain Skin: lesions (ulcerations on both posterior thighs Left > Right); No lumps, No pruritus Psychiatric/Neurological: Denies Headache, Denies Numbness, Denies Paresthesia All Other Systems Reviewed Negative Unless Noted: Yes (Negative excepted noted.) Physical Exam-General Problems Physical Exam General Appearance: WD/WN, no apparent distress HEENT: PERRL/EOMI, normal ENT inspection; No photophobia Neck: non-tender, supple Respiratory: chest non-tender, no respiratory distress, no accessory muscle use Cardiovascular: regular rate, rhythm, no edema Gastrointestinal: non tender, soft; No distended, No guarding, No rebound Rectal: deferred Back: no CVA tenderness, no vertebral tenderness Extremities: other (b/l AKA, ulcerations on both posterior thighs granulation tissue present, no purulent materail) Neurologic/Psychiatric: alert, oriented x 3 Skin: normal color, warm/dry Lymphatic: no adenopathy (ant. cervical) Assessment/Plan Assessment/Plan Assessment/Plan b/l lower extremity wounds posterior thighs Left > Right PAD pain * No necrotic tissues, foreign bodies, or abscess seen on examination * no indication for debridement or other surgical interventions at this time * cont. current abx regimen, along with home meds * Pain med management currently reported as sufficient * will get wound care team on board and will need long-term plan Lactic Acidosis Hypokalemia * cont. IVF regimen as is currently * K+ supplementation U/s demonstrating cholelithiasis, no feature of cholecystitis and no physical exam findings that would go with cholecystitis as well. Supervisory-Addendum Brief Verification & Attestation Participated in pt care: history, MDM, physical Personally performed: exam, history, MDM, supervision of care Care discussed with: Medical Student Procedures: n/a Results interpretation: Verified all documentation Verification and Attestation of Medical Student E/M Service A medical student performed and documented this service in my presence. I reviewed and verified all information documented by the medical student and made modifications to such information, when appropriate. I personally performed the physical exam and medical decision making. Chase Gonzalez March 13, 2023,13:51 KAT PENA March 13, 2023 08:16 CHASE GONZALEZ DO March 13, 2023 13:51
[2023-03-13] MEDS: oxyCODONE/APAP 5/325MG (PERCOCET 5) TABLET PO PRN ×2 (08:23→20:18)
--- NOTE | 2023-03-13 10:15 | Tele-ICU Consult ---
History of Present Illness History of Present Illness Date Seen by Provider: March 13, 2023 Time Seen by Provider: 10:14 Date of Admission Reason for Visit: b/l lower extremity wound care History of Present Illness (Tele-ICU Physician , consultation as per request of PCP Service provided via interactive audio and video telecomDocOnYou E-CARE system to a patient admitted to ICU bed in [facility]. Available chart/ vitals / labs / Images reviewed H&P is from ER notes Patient's information available about PMH, Shx, Fhx allergy reviewed inEMR. ROS as per chart and RN report Now in ICU, hemodynamically stable Video assessment done using teleICU camera, rest of exam as per RN Discussed with RN. Hospital course: A/P Sepsis to skin infection/ulcers - received IVF - cont aggressive hydration - zosyn / vanco IV - sx consulted b/l ulcerations posterior thighs Left > Right - unable to get any significant wound care over the last several weeks s/p bilt AKA PAD? , vascular insufficiency ? DVT? h/o DVT - ? etiology - last US 04/17 ( after BKA - Nonocclusive thrombus throughout the venous system of the lower extremities bilaterally. - now s/p AKA - ? at risk for clotting in pelvic veins ( can not see hypercoagu l. w/up on mediteck ) ETOH use/anuse - monitor for withdrawal, will need CIWA - vitamins to order , check MG Lactic Acidosis - ? type II with liver dz - cont hydration Hypokalemia - replace , check MG Lines : peripg , (Central Line Necessity Reviewed) Funk: void OG: Nutrition: po Analgesia: Anxiety/ delirium VTE Prophylaxis: s/p AKA - ? at risk for clotting in pelvic veins ( can not see hypercoagul. w/up on mediteck ) Stress Ulcer Prophylaxis: Plans in collaboration with bedside consultants and IM MDs. Discussed with RN to reach out if any questions or concerns A total of 31 minutes of critical care time was devoted to this patient today, required to treat and/or prevent further deterioration of critical care condition ( as above ) . I am remotely monitoring this patient from another state. I am unable to do the bedside exam, and history/physical and pertinent information is taken from other notes in the computer and bedside staff. . Allergies and Home Medications Allergies Coded Allergies: No Known Drug Allergies (Unverified , 08/04/21) He denies allergies to drugs and food, says he has seasonal allergies Home Medications Cyclobenzaprine HCl 5 Mg Tablet, 5 MG PO Q8H PRN for MUSCLE SPASMS, (Reported) Pregabalin 75 Mg Capsule, 75 MG PO BID PRN for PAIN-BREAKTHROUGH, (Reported) Sennosides 8.6 Mg Tablet, 8.6 MG PO DAILY, (Reported) Past Medical/Social/Family Hx Patient Social History Tobacco Use?: Yes Tobacco type used: Cigarettes Smoking Status: Current Everyday Smoker Smokeless Tobacco Frequency: Never a User Use of E-Cig and/or Vaping dev: No Substance use?: No Alcohol Use?: Yes Alcohol type: Hard Liquor Additional alcohol type: vodka Alcohol Frequency: Daily Pt stated abuse/neglect: No Immunizations Up To Date First/Initial COVID19 Vaccinat: DOESN'T PLAN ON TAKING IT Second COVID19 Vaccination Bear: DOESN'T PLAN ON TAKING IT Tetanus Booster (TDap): Less Than 5 Years Hepatitis A: Yes Hepatitis B: Yes TB Skin Test: None Current Status Advance Directives: No Communicates: Verbally Primary Language: Swiss Preferred Spoken Language: Swiss Is interpretation needed?: No Family Medical History Family Hx: EXTREME NON-COMPLIANCE IN ALL ASPECTS OF CARE SOCIAL HISTORY: -SMOKES 2-3 PPD -ETOH--DRINKS 1.75 LITERS OF HARD LIQUOR DAILY--STATES LATELY HE HAS ONLY BEEN DRINKING "3 OR 4 GLASSES" OF HARD LIQUOR/DAY. 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 -ALL TEETH REMOVED -HERNIA REPAIR Review of Systems Constitutional: see HPI Focused Exam Lactate Level 03/13/23 04:35: Lactic Acid Level 3.25*H 03/13/23 06:57: Lactic Acid Level 3.88*H 03/13/23 08:47: Lactic Acid Level 3.11*H Height, Weight, BMI Height: '" Weight: lbs. oz. kg; 32.51 BMI Method: Lactic Acid Level Laboratory Tests Test 03/13/23 06:57 03/13/23 08:47 Lactic Acid Level 3.88 MMOL/L (0.50-2.00) *H 3.11 MMOL/L (0.50-2.00) *H Exam Exam Patient acknowledged, consented, and participated in this virtual visit which was conducted using real time audio/video Vital Signs Date Time Temp Pulse Resp B/P (MAP) Pulse Ox O2 Delivery O2 Flow Rate FiO2 03/13/23 08:00 89 13 102/72 (82) 97 Room Air 03/13/23 07:39 36.3 03/13/23 07:00 80 03/13/23 07:00 77 20 105/69 (81) 99 Room Air 03/13/23 06:26 77 105/70 98 Room Air 03/13/23 04:15 36.0 80 102/82 (89) 98 Room Air I & O 03/13/23 06:59 Intake Total 100 ml Balance 100 ml Height & Weight Height: '" Weight: lbs. oz. kg; 32.51 BMI Method: General Appearance: No Apparent Distress, Chronically ill HEENT: PERRL/EOMI, Pharynx Normal Neck: Non Tender, Supple Respiratory: Lungs Clear, Normal Breath Sounds Cardiovascular: Regular Rate, Rhythm, No Murmur Gastrointestinal: non tender, soft; No distended, No guarding, No rebound Extremity: Other (Acute exacerbation of chronic leg wounds with foul-smelling drainage with redness and bloody drainage on left and wound on left worse than right. Also has redness along the posterior aspect of both legs and over buttocks with greatest area of concern centrally. Has bilateral [id number] amputation) Neurologic/Psychiatric: Alert, Oriented x3 Results Lab Laboratory Tests 03/13/23 04:35 Assessment/Plan Assessment/Plan 1 BLAIRE WILLIAM MD March 13, 2023 10:15
--- NOTE | 2023-03-13 10:48 | Wound Care Assessment ---
Wound Care Assessment Date Seen by Provider: March 13, 2023 Time Seen by Provider: 10:25 Chief Complaint Bilateral leg wounds HPI Alex Ma is a 42 yo male with a history of bilateral AKAs who was admitted to the ICU with concern for possible sepsis and hypokalemia with secondary co ncern for nonhealing bilateral posterior leg wounds. Wound care was consulted for these wounds. He states the wounds have been present for around 1 year, around the same time he had bilateral AKA surgery (stump revision) performed at [place]. He has been managing the wounds with Xeroform at home. He has concern for the left wound being deeper and larger than the right. The patient reports he has been unable to establish outpatient care with either primary care or wound care due to previous difficulty with transportation because he did not have a ramp for his wheelchair to leave his home, but he has moved to a new home with a ramp. The patient was recently admitted for management of these leg wounds, discharged 10 days ago; he indicates he believes his wounds have not worsened or changed since discharge. He remarks he is at the hospital because his called 911 because "she hates me and wanted to get me out of the house." He states he does not change his dressings at home though feels he would be able to. He states he does not struggle with cleanliness or have difficulty avoiding sitting in his urine or feces at home. The patient endorses smoking 1 ppd and 2-3 styrofoam cups of vodka daily. Of note, on last admit ER physician discussed with EMS who notes that Alex's transportation did not wish for transport as his wheelchair had feces and urine present. It should be noted that he had feces and urine in wounds and on backside for last 2 admissions as well noted in nursing notes. Alex has been scheduled to see me as an outpatient on 5 times in the last several years. He has not made it to any of these appointments. Please see additional note for further discussion on social situation. Past Medical History: Admits Deep Vein Thrombosis, Admits Peripheral Artery Disease Smoking Status: Heavy Tobacco Smoker (1ppd (previously 2-3 ppd)) Recreational Drug Use: No Alcohol Use: Regular Use (2-3 cups of vodka daily (up to 1.75L in past)) Review of Systems General: No Chills HEENT: No Head Aches Pulmonary: No Dyspnea, No Cough Cardiovascular: No: Chest Pain Gastrointestinal: No: Nausea, Vomiting, Abdominal Pain Neurological: No: Weakness, Numbness Exam Vital Signs Date Time Temp Pulse Resp B/P (MAP) Pulse Ox O2 Delivery O2 Flow Rate FiO2 03/13/23 10:24 Room Air 03/13/23 10:00 82 23 92/48 (63) 95 03/13/23 07:39 36.3 Capillary Refill : General Appearance: no apparent distress HEENT: PERRL/EOMI Extremities: other (bilateral AKA) Neurologic/Psychiatric: alert, oriented x 3, other (irritable and cursing when questioned on lifestyle choices) Left posterior le.3x4.7x0.8cm wound without tunnelling or undermining. Wound is red with serosanguinous drainage. Margins show epibole. Epitheliazation is small. Granulation is small, necrotic tissue is small and slough. Right posterior le.7x3.8x0.4cm wound without tunnelling or undermining. Wound is red with serosanguinous drainage. Margins are flat. Epitheliazation is small. Granulation is medium, necrotic tissue is small and slough. Deepest exposed structure is subcutaneous tissue. Results Laboratory Tests 03/13/23 04:35: White Blood Count 6.3, Red Blood Count 5.49, Hemoglobin 14.8, Hematocrit 45, Mean Corpuscular Volume 82, Mean Corpuscular Hemoglobin 27, Mean Corpuscular Hemoglobin Concent 33, Red Cell Distribution Width 16.2H, Platelet Count 271, Mean Platelet Volume 8.9L, Immature Granulocyte % (Auto) 0, Neutrophils (%) (Auto) 49, Lymphocytes (%) (Auto) 34, Monocytes (%) (Auto) 8, Eosinophils (%) (Auto) 9, Basophils (%) (Auto) 1, Neutrophils # (Auto) 3.1, Lymphocytes # (Auto) 2.1, Monocytes # (Auto) 0.5, Eosinophils # (Auto) 0.6H, Basophils # (Auto) 0.0, Immature Granulocyte # (Auto) 0.0, Prothrombin Time 13.1, INR Comment 1.0, Acti vated Partial Thromboplast Time 34, Sodium Level 141, Potassium Level 2.8L, Chloride Level 105, Carbon Dioxide Level 21, Anion Gap 15H, Blood Urea Nitrogen 5L, Creatinine 0.60, Estimat Glomerular Filtration Rate 124, BUN/Creatinine Ratio 8, Glucose Level 93, Lactic Acid Level 3.25*H, Calcium Level 8.7, Corrected Calcium 9.1, Total Bilirubin 0.5, Aspartate Amino Transf (AST/SGOT) 18, Alanine Aminotransferase (ALT/SGPT) 12, Alkaline Phosphatase 146H, Total Protein 6.9, Albumin 3.5 03/13/23 04:47: Urine Color YELLOW, Urine Clarity CLEAR, Urine pH 6.0, Urine Specific [place] <=1.005, Urine Protein NEGATIVE, Urine Glucose (UA) NEGATIVE, Urine Ketones NEGATIVE, Urine Nitrite NEGATIVE, Urine Bilirubin NEGATIVE, Urine Urobilinogen 0.2, Urine Leukocyte Esterase NEGATIVE, Urine RBC (Auto) NEGATIVE, Urine RBC NONE, Urine WBC NONE, Urine Squamous Epithelial Cells 0-2, Urine Crystals NONE, Urine Bacteria NEGATIVE, Urine Casts NONE, Urine Mucus NEGATIVE, Urine Culture Indicated CULTURE PENDING 03/13/23 06:57: Lactic Acid Level 3.88*H 03/13/23 08:47: Lactic Acid Level 3.11*H, Magnesium Level 1.5L Assessment/Plan/Dx A; 1. S/p bilateral AKA 2. Bilateral posterior leg wounds 3. Alcohol abuse 4. Heavy tobacco abuse 5. Severe PAD 6. Hx bilateral LE DVT 7. Noncompliance with medications, follow up and lifestyle changes 8. MASD P: 1. Vashe cleansing with silver alginate dressing and bordered foam daily. 2. Counseled cessation of substance use. 3. Establish primary care. 4. Recommend admission to nursing facility. Supervisory-Addendum Brief Verification & Attestation Participated in pt care: history, MDM, physical Personally performed: exam, history, MDM, supervision of care Care discussed with: Medical Student Procedures: n/a Results interpretation: Verified all documentation MD SPENCER Hernandez KELVIN March 13, 2023 10:48 HARLEEN SMITH MD March 13, 2023 12:26
--- NOTE | 2023-03-13 11:03 | History & Physical-Hospitalist ---
History of Present Illness HPI/Chief Complaint Pt is a 42 year old male with PMH PAD, DVT, s/p bilateral AKA who presented to the ER due to worsening wounds. He has here roughly 1 week ago for a wound change as he was unable to get this at home. He states they have been draining more and the left is worse than the right. He has been unable to get wound care and per ER note his family dyamics at home are rough. He was admitted for surgical evaluation and developed some hypotension so was admitted to the ICU. This morning I saw him with Dr Fernandez who thinks wounds look good and don't need surgical intervention at this time. Patient denies any other complaints. Source: patient Date Seen 03/13/23 Time Seen by a Provider: 10:56 Attending Physician No,Local Physician PCP Admitting Physician: Reed Centeno MD Attending Physician: Reed Centeno MD Referring Physician Date of Admission March 13, 2023 at 06:19 Home Medications & Allergies Home Medications Reviewed patient Home Medication Reconciliation performed by pharmacy medication reconciliations division order technician and/or nursing. Patients Allergies have been reviewed. Allergies Allergies Coded Allergies No Known Drug Allergies ([id number]/9/21) He denies allergies to drugs and food, says he has seasonal allergies Past Znpuedx-Ncjhoy-Jdbxnt Hx Patient Social History Marrital Status: Employed/Student: unemployed Tobacco Use?: Yes Tobacco type used: Cigarettes Smoking Status: Current Everyday Smoker Smokeless Tobacco Frequency: Never a User Use of E-Cig and/or Vaping dev: No Substance use?: No Alcohol Use?: Yes Alcohol type: Hard Liquor Additional alcohol type: vodka Alcohol Frequency: Daily Pt feels they are or have been: No Immunizations Up To Date First/Initial COVID19 Vaccinat: DOESN'T PLAN ON TAKING IT Second COVID19 Vaccination Bear: DOESN'T PLAN ON TAKING IT Tetanus Booster (TDap): Less Than 5 Years Hepatitis A: Yes Hepatitis B: Yes Seasonal Allergies Seasonal Allergies: Yes Current Status Advance Directives: No Communicates: Verbally Primary Language: Anguillan Preferred Spoken Language: Anguillan Is interpretation needed?: No Past Medical History Surgeries: Abdominal, Amputation, Orthopedic Deep Vein Thrombosis, Peripheral Vascular Amputee Psoriasis Blood Disorders: Yes (DVT'S) Family Medical History Reviewed Nursing Family Hx No Pertinent Family Hx, Other Conditions/Hx EXTREME NON-COMPLIANCE IN ALL ASPECTS OF CARE SOCIAL HISTORY: -SMOKES 2-3 PPD -ETOH--DRINKS 1.75 LITERS OF HARD LIQUOR DAILY--STATES LATELY HE HAS ONLY BEEN DRINKING "3 OR 4 GLASSES" OF HARD LIQUOR/DAY. 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 -ALL TEETH REMOVED -HERNIA REPAIR Review of Systems Constitutional: see HPI Physical Exam Physical Exam Vital Signs Vital Signs - First Documented 03/13/23 04:15 Temp 36.0 Pulse 80 B/P (MAP) 102/82 (89) Pulse Ox 98 O2 Delivery Room Air Capillary Refill : Height, Weight, BMI Height: '" Weight: lbs. oz. kg; 32.51 BMI Method: General Appearance: No Apparent Distress, Chronically ill HEENT: PERRL/EOMI, Moist Mucous Membranes Cardiovascular: Regular Rate, Rhythm, No Murmur Gastrointestinal: Normal Bowel Sounds, Soft, Distended (mild) Extremity: Other (b/l AKA with posterior wounds left deeper than right but no significant drainage or erythema noted) Neurologic/Psychiatric: Alert, Oriented x3 Results Results/Procedures Labs Laboratory Tests 03/13/23 04:35 03/14/23 04:24 Patient resulted labs reviewed. Assessment/Plan Admission Diagnosis Severe sepsis Admission Status: Inpatient Order (span 2 midnights) Reason for Inpatient Admission: see below Assessment and Plan Severe sepsis Infected wounds s/p bilateral AKA Peripheral vascular disease h/o DVT Alcohol Abuse Poor living circumstances Continue IV abx BP lower but chronically has low BP on review on previous notes Lactic elevated- trend Surgery and wound care consulted, appreciate recs Continue home meds as able Doesn't seem to be on anticoagulation at baseline (last filled in July) DVT ppx: LUCY Guerrero MD March 13, 2023 11:03
[2023-03-13] MEDS ORDERED: CYCLOBENZAPRINE 10 MG (FLEXERIL) TAB PO PRN (11:15)
[2023-03-13] MEDS: HYPOCHLOROUS ACID/NaCl (VASHE) 250 ML IR SCH ×2 (11:21→22:01)
--- NOTE | 2023-03-13 12:05 | Diagnostic Imaging Report ---
PROCEDURE: US Hepatic (Liver). TECHNIQUE: Multiple real-time grayscale images were obtained over the right upper quadrant in various projections. INDICATION: Ethanolism. FINDINGS: Liver measures 19 cm in length with increased echogenicity suggestive of hepatic steatosis. Bowel gas obscures portions of the left lobe. No discrete hepatic mass is appreciated. There is shadowing within the lumen of the gallbladder indicating cholelithiasis and probable Stone packed lumen. Bowel overlies retroperitoneal structures and obscures common bile duct, pancreas, and aorta. No inferior vena caval or right renal abnormality is seen, and no ascites is noted. Portal and hepatic venous structures demonstrate normal flow. IMPRESSION: Stones in the gallbladder lumen and probable hepatic steatosis without other abnormality identified on limited study. Dictated by: Dictated on workstation # [id number]
[2023-03-13] MEDS: PIPERACILLIN SODIUM/TAZOBACTAM 4.5 GM in NS (IVPB) 100 ML IV SCH ×2 (12:48→21:38)
[2023-03-13] MEDS: ENOXAPARIN 40 MG/0.4 ML (LOVENOX) SYR SQ SCH (12:48)
--- NOTE | 2023-03-13 13:01 | Progress Note ---
Subjective Date Seen by Provider: March 13, 2023 Time Seen by Provider: 12:29 Subjective/Events-last exam I did question Alex at length about his living situation and lifestyle choices today. He has been admitted to the hospital repeatedly in the past. He now has bilateral AKA's as a result of his severe PAD and resulting gangrene. His PAD is likely related to his lifestyle choices. Alex today reports smoking 1ppd (up to 3ppd in past) and 2-3 styrofoam cups of vodka (up to 1.75L) daily. He developed gangrenous ulcers and had multiple amputations in the past. Repeated stump complications have resulted in revisions of amputations as well and he is now left with bilateral AKA's. His current wounds do coincide with his amputation cicatrix despite location on posterior thigh. I did group home counselor Alex that his severe PAD and gangrene are likely related to his drinking and smoking and strongly urged him to stop both or his global health would decline further. There are numerous reports from our staff and outside transportation of unhygienic environment including soiling with both feces and urine repeatedly. I did questions Alex in this regards. He notes that he can sense when he needs to urinate and defecate and makes it to the commode just fine. I asked why his chair would be heavily soiled and he reports that this is untrue and outside transport must be lying. He does admit that he puts a cecy under him in his chair and that sometimes "sticks" to him making it difficult to get to the rest room. Again, on this admission he does have stool caked to his backside conta minating his wounds. Alex appears to have upper body use so I cannot comment as to why he cannot clean himself regularly or get himself to the commode without repeated soiling of his wounds. We have scheduled Alex for follow up in our clinic on 5 separate occasions and he has made none of these follow up visits. In the past, he blamed this on a lack of wheelchair ramp. Now he lives at a place with a ramp and states he cannot come because transport just "left him" on several occasions. He also notes that his is "no help" and that she "gets angry and wants to kick me out of the house and calls EMS". I noted that this is an innappropriate use of the EMS system and he states " I didn't fucking call them". I see 3 options for Alex's future care: 1. Alex can stop drinking, smoking, work on strengthening and healthy habits so that he can change his dressings on his own, clean himself, and find a way to arrange transportation to his doctor's visits. This is the ideal solution at his age and would allow us to assist him in healing his chronic wounds. 2. Alex can consider alf stay in which a nurse would aide in cleaning him, dressing changes, transportation, and limit his drinking and smoking per their facility rules. 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 3. Alex can continue with his current trajectory. If so, his health will continue to decline. In this situation, there is very little we can do to help him outside of this facility to heal his wounds. I did advise Alex that the hospital cannot provide indefinite care for a person in his living situation. When confronted with these options, Alex because very angry, cursed and said he would do the first option on his own. I did make recommendations (see other note) for while he is with us during this stay but am not optimistic at all about Alex's future health perspective in light of his current choices. Review of Systems General: No Chills HEENT: No Head Aches Pulmonary: No Dyspnea, No Cough Cardiovascular: No: Chest Pain Gastrointestinal: No: Nausea, Vomiting, Abdominal Pain Neurological: No: Weakness, Numbness Focused Exam Lactate Level 03/13/23 06:57: Lactic Acid Level 3.88*H 03/13/23 08:47: Lactic Acid Level 3.11*H 03/13/23 10:50: Lactic Acid Level 2.48*H Lactic Acid Level Laboratory Tests Test 03/13/23 08:47 03/13/23 10:50 Lactic Acid Level 3.11 MMOL/L (0.50-2.00) *H 2.48 MMOL/L (0.50-2.00) *H Objective Exam Last Set of Vital Signs Vital Signs Date Time Temp Pulse Resp B/P (MAP) Pulse Ox O2 Delivery O2 Flow Rate FiO2 03/13/23 12:00 36.7 03/13/23 11:53 Room Air 03/13/23 11:00 84 29 93/55 (54) 94 Capillary Refill : Results Lab Laboratory Tests 03/13/23 04:35: White Blood Count 6.3, Red Blood Count 5.49, Hemoglobin 14.8, Hematocrit 45, Mean Corpuscular Volume 82, Mean Corpuscular Hemoglobin 27, Mean Corpuscular Hemoglobin Concent 33, Red Cell Distribution Width 16.2H, Platelet Count 271, Mean Platelet Volume 8.9L, Immature Granulocyte % (Auto) 0, Neutrophils (%) (Auto) 49, Lymphocytes (%) (Auto) 34, Monocytes (%) (Auto) 8, Eosinophils (%) (Auto) 9, Basophils (%) (Auto) 1, Neutrophils # (Auto) 3.1, Lymphocytes # (Auto) 2.1, Monocytes # (Auto) 0.5, Eosinophils # (Auto) 0.6H, Basophils # (Auto) 0.0, Immature Granulocyte # (Auto) 0.0, Prothrombin Time 13.1, INR Comment 1.0, Activated Partial Thromboplast Time 34, Sodium Level 141, Potassium Level 2.8L, Chloride Level 105, Carbon Dioxide Level 21, Anion Gap 15H, Blood Urea Nitrogen 5L, Creatinine 0.60, Estimat Glomerular Filtration Rate 124, BUN/Creatinine Ratio 8, Glucose Level 93, Lactic Acid Level 3.25*H, Calcium Level 8.7, Corrected Calcium 9.1, Total Bilirubin 0.5, Aspartate Amino Transf (AST/SGOT) 18, Alanine Aminotransferase (ALT/SGPT) 12, Alkaline Phosphatase 146H, Total Protein 6.9, Albumin 3.5 03/13/23 04:47: Urine Color YELLOW, Urine Clarity CLEAR, Urine pH 6.0, Urine Specific [place] <=1.005, Urine Protein NEGATIVE, Urine Glucose (UA) NEGATIVE, Urine Ketones NEGATIVE, Urine Nitrite NEGATIVE, Urine Bilirubin NEGATIVE, Urine Urobilinogen 0.2, Urine Leukocyte Esterase NEGATIVE, Urine RBC (Auto) NEGATIVE, Urine RBC NONE, Urine WBC NONE, Urine Squamous Epithelial Cells 0-2, Urine Crystals NONE, Urine Bacteria NEGATIVE, Urine Casts NONE, Urine Mucus NEGATIVE, Urine Culture Indicated CULTURE PENDING 03/13/23 06:57: Lactic Acid Level 3.88*H 03/13/23 08:47: Lactic Acid Level 3.11*H, Magnesium Level 1.5L 03/13/23 10:50: Lactic Acid Level 2.48*H Assessment/Plan Assessment/Plan Assess & Plan/Chief Complaint Please see other note Final Diagnosis Please see other note HARLEEN SMITH MD March 13, 2023 13:01
[2023-03-13] MEDS: MAGNESIUM 1 GM/D5W 100 ML IVPB IV SCH ×2 (14:00→15:02)
[2023-03-13] MEDS: THIAMINE INJECTION 100 MG, FOLIC ACID INJECTION 1 MG, VITAMIN MULTI INJECTION 10 ML, MA... IV SCH ×5 (15:03)
[2023-03-13] MEDS: VANCOMYCIN 1 GM/NS 250 ML IVPB IV SCH ×2 (20:12)
[2023-03-13] MEDS: PREGABALIN 75 MG (LYRICA) CAP PO PRN (21:59)
[2023-03-14] MEDS: NOREPINEPHRINE 8 MG/250 ML 250 ML IV SCH ×2 (01:57→21:24)
[2023-03-14] MEDS: oxyCODONE/APAP 5/325MG (PERCOCET 5) TABLET PO PRN ×3 (03:18→22:35)
[2023-03-14] MEDS: PIPERACILLIN SODIUM/TAZOBACTAM 4.5 GM in NS (IVPB) 100 ML IV SCH ×3 (04:04→20:00)
[2023-03-14 05:00] LABS: BASOPHILS % (AUTO) 1 % (0-10); EOSINOPHILS # (AUTO) 0.4 10^3/uL (0.0-0.3); EOSINOPHILS % (AUTO) 9 % (0-10); HEMATOCRIT 35 % (40-54); HEMOGLOBIN 11.1 g/dL (13.3-17.7); LYMPHOCYTES # (AUTO) 1.4 10^3/uL (1.0-4.0); LYMPHOCYTES % (AUTO) 31 % (12-44); MEAN CORPUSCULAR HEMOGLOBIN 26 pg (25-34); MEAN CORPUSCULAR HGB CONC 31 g/dL (32-36); MEAN CORPUSCULAR VOLUME 84 fL (80-99); MEAN PLATELET VOLUME 9.5 fL (9.0-12.2); MONOCYTES # (AUTO) 0.3 10^3/uL (0.0-1.0); MONOCYTES % (AUTO) 7 % (0-12); NEUTROPHILS # (AUTO) 2.4 10^3/uL (1.8-7.8); NEUTROPHILS % (AUTO) 53 % (42-75); PLATELET COUNT 183 10^3/uL (130-400); WHITE BLOOD COUNT 4.5 10^3/uL (4.3-11.0)
[2023-03-14] MEDS: VASOPRESSIN INJECTION 20 UNIT in NS (IVPB) 100 ML IV SCH ×2 (05:20→18:38)
[2023-03-14 05:28] LABS: ALBUMIN 2.3 GM/DL (3.2-4.5); BILIRUBIN,TOTAL 0.2 MG/DL (0.1-1.0); CALCIUM 7.1 MG/DL (8.5-10.1); CREATININE SERUM 0.55 MG/DL (0.60-1.30); MAGNESIUM 2.1 MG/DL (1.6-2.4); PHOSPHORUS 1.9 MG/DL (2.3-4.7); POTASSIUM 3.9 MMOL/L (3.6-5.0); TOTAL PROTEIN 4.8 GM/DL (6.4-8.2)
[2023-03-14] MEDS ORDERED: NS IV 500 ML 500 ML IV PRN (05:30)
[2023-03-14] MEDS: POTASSIUM CL 10MEQ/50ML IVPB 50 ML IV SCH (05:33)
[2023-03-14] MEDS: MAGNESIUM 1 GM/100 ML IVPB 100 ML IV SCH (05:33)
[2023-03-14] MEDS: KCL 20 MEQ TAB (K-DUR) PO SCH (06:10)
[2023-03-14] MEDS: NS IV 1000 ML 1,000 ML IV SCH ×3 (06:56→23:50)
--- NOTE | 2023-03-14 07:51 | Discharge Summary ---
Diagnosis/Chief Complaint Date of Admission March 13, 2023 at 06:19 Date of Discharge Admission Diagnosis Severe sepsis Primary Care No,Local Physician Discharge Summary Discharge Physical Exam Allergies: Coded Allergies: No Known Drug Allergies (Unverified , 08/04/21) He denies allergies to drugs and food, says he has seasonal allergies Vitals & I&Os Vital Signs Date Time Temp Pulse Resp B/P (MAP) Pulse Ox O2 Delivery O2 Flow Rate FiO2 03/14/23 14:14 36.9 72 12 101/64 98 Room Air General Appearance: No Apparent Distress, Chronically ill Cardiovascular: Regular Rate, Rhythm Gastrointestinal: Normal Bowel Sounds, Soft Extremity: Other (b/l AKA) Neurologic/Psychiatric: Alert, Oriented x3 Hospital Course Patient was admitted to the hospital with concerns for sepsis due to lower extremity wounds. He was treated with IV antibiotics and improved rapidly. Surgery and wound care were consulted to assist with management of his wounds. It appears most of his issues come down to poor hygiene at home and noncompliance with medical care though he does have significant difficulties in accessing medical care. Social work was consulted to assist with that. Home health was arranged to assist with wound care at home. He is to follow-up with [facility] to establish care. It was recommended very strongly by multiple physicians that he quit smoking and drinking in order to assist with his wounds. He was discharged home in stable and improved condition. Labs (last 24 hrs) Laboratory Tests 03/14/23 04:24: White Blood Count 4.5, Red Blood Count 4.20L, Hemoglobin 11.1#L, Hematocrit 35L, Mean Corpuscular Volume 84, Mean Corpuscular Hemoglobin 26, Mean Corpuscular Hemoglobin Concent 31L, Red Cell Distribution Width 16.4H, Platelet Count 183, Mean Platelet Volume 9.5, Immature Granulocyte % (Auto) 0, Neutrophils (%) (Auto) 53, Lymphocytes (%) (Auto) 31, Monocytes (%) (Auto) 7, Eosinophils (%) (Auto) 9, Basophils (%) (Auto) 1, Neutrophils # (Auto) 2.4, Lymphocytes # (Auto) 1.4, Monocytes # (Auto) 0.3, Eosinophils # (Auto) 0.4H, Basophils # (Auto) 0.0, Immature Granulocyte # (Auto) 0.0, Sodium Level 137, Potassium Level 3.9, Chloride Level 106, Carbon Dioxide Level 20L, Anion Gap 11, Blood Urea Nitrogen 5L, Creatinine 0.55L, Estimat Glomerular Filtration Rate 127, BUN/Creatinine Ratio 9, Glucose Level 100, Calcium Level 7.1L, Corrected Calcium 8.5, Phosphorus Level 1.9L, Magnesium Level 2.1, Total Bilirubin 0.2, Aspartate Amino Transf (AST/SGOT) 12, Alanine Aminotransferase (ALT/SGPT) 6, Alkaline Phosphatase 106, Total Protein 4.8L, Albumin 2.3L Microbiology 03/13/23 MRSA Screen - Final, Complete MRSA not isolated 03/13/23 Urine Culture - Final, Complete See Comments 03/13/23 Gram Stain - Final, Resulted 03/13/23 Wound Culture - Preliminary, Resulted Mixed Bacterial Aleta Patient resulted labs reviewed. Pending Labs Discussion & Recommendations Discharge Planning: >30 minutes discharge planning Discharge Home Medications: Active Scripts Active Cephalexin 500 Mg Tablet 500 Mg PO BID Reported Pregabalin 75 Mg Capsule 75 Mg PO BID PRN Cyclobenzaprine HCl 5 Mg Tablet 5 Mg PO Q8H PRN Senna Laxative (Sennosides) 8.6 Mg Tablet 8.6 Mg PO DAILY Instructions to patient/family Please see electronic discharge instructions given to patient. LUCY MOLINA MD March 14, 2023 07:51
--- NOTE | 2023-03-14 08:13 | Progress Note - Surgery ---
KAT PENA 03/14/2313: Subjective Date Seen by a Provider: March 14, 2023 Time Seen by a Provider: 07:00 Subjective/Events-last exam Pt was lying watching youtube and eating breakfast, has no complaints, and says that Dr. Wayne said he looked improved and that he is "just waiting to hear that he can leave". Denies pain, n/v/d/f/c, chest pain, or SOB. Review of Systems General: No Chills, No Night Sweats HEENT: No Head Aches, No Visual Changes, No Sore Throat Pulmonary: No Dyspnea, No Cough, No Pleuritic Chest Pain Cardiovascular: No: Palpitations, Edema Gastrointestinal: No: Nausea, Vomiting, Abdominal Pain Genitourinary: No Dysuria Musculoskeletal: No: other, neck pain, shoulder pain, arm pain, back pain, hand pain, leg pain, foot pain Neurological: No: Weakness, Numbness Focused Exam Lactate Level 03/13/23 06:57: Lactic Acid Level 3.88*H 03/13/23 08:47: Lactic Acid Level 3.11*H 03/13/23 10:50: Lactic Acid Level 2.48*H Objective Exam Vital Signs Date Time Temp Pulse Resp B/P (MAP) Pulse Ox O2 Delivery O2 Flow Rate FiO2 03/14/23 08:00 84 108/66 (84) 97 Room Air 03/14/23 07:00 67 03/14/23 07:00 72 27 98/69 (77) 97 Room Air 03/14/23 06:00 58 18 87/53 (64) 99 Room Air 03/14/23 05:30 70 25 92/51 (62) 03/14/23 05:20 68 93/50 03/14/23 05:00 70 16 93/55 (67) 100 Room Air 03/14/23 04:30 68 22 93/50 (63) 95 Room Air 03/14/23 04:09 Room Air 03/14/23 04:00 104/64 (77) 03/14/23 03:18 36.1 03/14/23 03:00 36.1 68 23 96/61 (74) 92 Room Air 03/14/23 01:57 89 106/72 03/14/23 01:30 76 26 106/72 (80) 98 Room Air 03/14/23 01:00 71 03/14/23 01:00 78 28 102/61 (80) 97 Room Air 03/14/23 00:00 106/71 (86) 03/13/23 23:59 Room Air 03/13/23 23:00 36.9 82 17 111/74 (89) 93 Room Air 03/13/23 22:00 76 23 115/66 (77) 95 Room Air 03/13/23 21:00 93 26 132/74 (96) 93 Room Air 03/13/23 20:00 Room Air 03/13/23 19:30 78 18 116/67 (88) 96 Room Air 03/13/23 19:00 36.2 71 17 96/48 (64) 97 Room Air 03/13/23 19:00 73 03/13/23 18:00 76 12 99/69 (79) 98 Room Air 03/13/23 17:00 75 13 85/67 (73) 98 Room Air 03/13/23 16:00 63 24 86/51 (63) 96 Room Air 03/13/23 16:00 Room Air 03/13/23 15:00 68 25 86/55 (65) 95 Room Air 03/13/23 14:00 70 28 83/49 (60) 96 Room Air 03/13/23 13:00 89 15 102/55 (71) 96 Room Air 03/13/23 12:52 94 03/13/23 12:00 36.7 03/13/23 12:00 81 14 91/55 (67) 94 Room Air 03/13/23 11:53 Room Air 03/13/23 11:00 84 29 93/55 (68) 94 Room Air 03/13/23 10:24 Room Air 03/13/23 10:00 82 23 92/48 (63) 95 Room Air 03/13/23 09:00 90 20 93/48 (63) 93 Room Air I & O 03/14/23 07:00 Intake Total 5087.2 ml Output Total 2400 ml Balance 2687.2 ml Capillary Refill : General Appearance: No Apparent Distress, Chronically ill HEENT: PERRL/EOMI, Moist Mucous Membranes Neck: Non Tender, Supple Respiratory: Chest Non Tender, Lungs Clear, No Respiratory Distress Cardiovascular: Regular Rate, Rhythm, No Murmur Peripheral Pulses: 2+ Radial Pulses (R), 2+ Radial Pulses (L) Gastrointestinal: non tender, soft; No distended, No guarding, No rebound Extremity: Other (b/l AKA with posterior wounds left deeper than right but no significant drainage or erythema noted) Neurologic/Psychiatric: Alert, Oriented x3 Skin: Warm/Dry; No Rash Results Lab Laboratory Tests 03/13/23 08:47: Lactic Acid Level 3.11*H, Magnesium Level 1.5L 03/13/23 10:50: Lactic Acid Level 2.48*H 03/14/23 04:24: Magnesium Level 2.1, White Blood Count 4.5, Red Blood Count 4.20L, Hemoglobin 11.1#L, Hematocrit 35L, Mean Corpuscular Volume 84, Mean Corpuscular Hemoglobin 26, Mean Corpuscular Hemoglobin Concent 31L, Red Cell Distribution Width 16.4H, Platelet Count 183, Mean Platelet Volume 9.5, Immature Granulocyte % (Auto) 0, Neutrophils (%) (Auto) 53, Lymphocytes (%) (Auto) 31, Monocytes (%) (Auto) 7, Eosinophils (%) (Auto) 9, Basophils (%) (Auto) 1, Neutrophils # (Auto) 2.4, Lymphocytes # (Auto) 1.4, Monocytes # (Auto) 0.3, Eosinophils # (Auto) 0.4H, Basophils # (Auto) 0.0, Immature Granulocyte # (Auto) 0.0, Sodium Level 137, Potassium Level 3.9, Chloride Level 106, Carbon Dioxide Level 20L, Anion Gap 11, Blood Urea Nitrogen 5L, Creatinine 0.55L, Estimat Glomerular Filtration Rate 127, BUN/Creatinine Ratio 9, Glucose Level 100, Calcium Level 7.1L, Corrected Calcium 8.5, Phosphorus Level 1.9L, Total Bilirubin 0.2, Aspartate Amino Transf (AST/SGOT) 12, Alanine Aminotransferase (ALT/SGPT) 6, Alkaline Phosphatase 106, Total Protein 4.8L, Albumin 2.3L Assessment/Plan Assessment/Plan Assessment/Plan b/l lower extremity wounds posterior thighs Left > Right PAD pain * No necrotic tissues, foreign bodies, or abscess seen on examination * no indication for debridement or other surgical interventions at this time * cont. current abx regimen, along with home meds * Pain med management currently reported as sufficient * continue with wound care team, and compliance with PCP follow up essential. Lactic Acidosis Hypokalemia * cont. IVF regimen as is currently * K+ supplementation U/s demonstrating cholelithiasis * asymptomatic, pt denies any issues, says hes "had stones forever, and aint ever noticed them" CHASE FERNANDEZ DO 03/14/23 8650: Subjective Subjective/Events-last exam Patient states doing okay. Not having any significant pain. Discusses that he has issues with getting wound care. Overall difficulty home situation. Denies n/v fever sweats chills shortness of breath or chest pain. Objective Exam General Appearance: No Apparent Distress, Chronically ill HEENT: PERRL/EOMI, Moist Mucous Membranes Neck: Non Tender, Supple Respiratory: Chest Non Tender, No Accessory Muscle Use, No Respiratory Distress Cardiovascular: Regular Rate, Rhythm, No JVD Gastrointestinal: non tender, soft Extremity: Other (b/l AKA with posterior wounds left deeper than right but no significant drainage or erythema noted) Neurologic/Psychiatric: Alert, Oriented x3 Skin: Normal Color, Warm/Dry, Other (wounds posterior AKA as noted above) Lymphatic: No Adenopathy Assessment/Plan Assessment/Plan Assessment/Plan b/l lower extremity wounds posterior thighs Left > Right PAD pain * No necrotic tissues, foreign bodies, or abscess seen on examination * no indication for debridement or other surgical interventions at this time * cont. current abx regimen, along with home meds * Pain med management currently reported as sufficient * continue with wound care team, and compliance with PCP follow up essential. U/s demonstrating cholelithiasis * asymptomatic, pt denies any issues, says hes "had stones forever, and aint ever noticed them" * Had discussion for need of compliance with wound care. Social work to see today. Okay to dc from surgical standpoint. Supervisory-Addendum Brief Verification & Attestation Participated in pt care: history, MDM, physical Personally performed: exam, history, MDM, supervision of care Care discussed with: Medical Student Procedures: n/a Results interpretation: Verified all documentation Verification and Attestation of Medical Student E/M Service A medical student performed and documented this service in my presence. I reviewed and verified all information documented by the medical student and made modifications to such information, when appropriate. I personally performed the physical exam and medical decision making. Chase Fernandez March 14, 2023,13:30 KAT PENA March 14, 2023 08:13 CHASE FERNANDEZ DO March 14, 2023 13:30
[2023-03-14] MEDS: VANCOMYCIN 1 GM/NS 250 ML IVPB IV SCH ×4 (08:14→20:00)
[2023-03-14] MEDS ORDERED: CEPH500T PO (09:22)
[2023-03-14] MEDS: HYPOCHLOROUS ACID/NaCl (VASHE) 250 ML IR SCH ×2 (09:33→21:24)
[2023-03-14] MEDS: THIAMINE INJECTION 100 MG, FOLIC ACID INJECTION 1 MG, VITAMIN MULTI INJECTION 10 ML, MA... IV SCH ×5 (09:36)
[2023-03-14] MEDS: ENOXAPARIN 40 MG/0.4 ML (LOVENOX) SYR SQ SCH (13:41)
--- NOTE | 2023-03-14 14:09 | D/C HH Face to Face Order ---
D/C Face to Face Orders Instructions for Patient Via [facility], Patient Instructions/FollowUp: Please continue to take your medications as written. Please follow up with your primary care doctor to follow up this hospital stay. Physician to follow Patient: [facility] Discharge Diet for Home: No Restrictions Patient Data-Allergies,Ht & Wt Patient Allergies: Coded Allergies: No Known Drug Allergies (Unverified , 08/04/21) He denies allergies to drugs and food, says he has seasonal allergies Home Health Need/Face to Face Date of Face to Face: March 14, 2023 Clinical Findings: Generalized weakness and fatigue, Non-healing wound I have seen Pt [id number]: Yes Discharged To: Home Diagnosis/Conditions: s/p bilateral AKA with Patient is Homebound due to: Non-weight bearing Homebound Status Due to the above stated illness, injury or surgical procedure (medical condition or diagnosis) and associated clinical findings, the patient is homebound because of his/her inability to leave home except with aid of a supportive device and/or person AND leaving the home requires a considerable and taxing effort or is medically contraindicated. Pt req the following assistanc: Aid of another person, Wheelchair Home Health Nursing Orders Home Health Services Order: Nursing Services Home Health Infusion Therapy Line Start Date: March 13, 2023 Certify Stmt I certify that this patient is under my care and that I, a nurse practitioner or a physician; a assistant professor of life sciences working with me, had a face to face encounter that - meets the physician face to face encounter requirements with this patient as dated. LUCY MOLINA MD March 14, 2023 09:14
[2023-03-14 14:14] VITALS: BP 101/64
[2023-03-14 23:01] VITALS: BP 134/63
[2023-03-15] MEDS: VASOPRESSIN INJECTION 20 UNIT in NS (IVPB) 100 ML IV SCH (03:09)
[2023-03-15] MEDS: PIPERACILLIN SODIUM/TAZOBACTAM 4.5 GM in NS (IVPB) 100 ML IV SCH ×2 (03:09→08:08)
[2023-03-15 03:48] VITALS: BP 117/74
[2023-03-15 06:02] LABS: BASOPHILS % (AUTO) 1 % (0-10); EOSINOPHILS # (AUTO) 0.4 10^3/uL (0.0-0.3); EOSINOPHILS % (AUTO) 11 % (0-10); HEMATOCRIT 36 % (40-54); HEMOGLOBIN 11.3 g/dL (13.3-17.7); LYMPHOCYTES # (AUTO) 1.3 10^3/uL (1.0-4.0); LYMPHOCYTES % (AUTO) 36 % (12-44); MEAN CORPUSCULAR HEMOGLOBIN 27 pg (25-34); MEAN CORPUSCULAR HGB CONC 32 g/dL (32-36); MEAN CORPUSCULAR VOLUME 85 fL (80-99); MEAN PLATELET VOLUME 9.6 fL (9.0-12.2); MONOCYTES # (AUTO) 0.3 10^3/uL (0.0-1.0); MONOCYTES % (AUTO) 9 % (0-12); NEUTROPHILS # (AUTO) 1.6 10^3/uL (1.8-7.8); NEUTROPHILS % (AUTO) 44 % (42-75); PLATELET COUNT 162 10^3/uL (130-400); WHITE BLOOD COUNT 3.6 10^3/uL (4.3-11.0)
[2023-03-15 06:25] LABS: ALBUMIN 2.4 GM/DL (3.2-4.5); POTASSIUM 4.1 MMOL/L (3.6-5.0)
[2023-03-15 06:26] LABS: CALCIUM 7.6 MG/DL (8.5-10.1)
[2023-03-15 06:27] LABS: TOTAL PROTEIN 4.9 GM/DL (6.4-8.2)
[2023-03-15] MEDS: POTASSIUM CL 10MEQ/50ML IVPB 50 ML IV SCH (06:27)
[2023-03-15] MEDS: MAGNESIUM 1 GM/100 ML IVPB 100 ML IV SCH (06:27)
[2023-03-15] MEDS: KCL 20 MEQ TAB (K-DUR) PO SCH (06:28)
[2023-03-15] MEDS: NS IV 1000 ML 1,000 ML IV SCH ×2 (06:28→11:36)
[2023-03-15 06:29] LABS: BILIRUBIN,TOTAL 0.2 MG/DL (0.1-1.0)
[2023-03-15 06:30] LABS: PHOSPHORUS 2.6 MG/DL (2.3-4.7)
[2023-03-15 06:31] LABS: CREATININE SERUM 0.47 MG/DL (0.60-1.30)
[2023-03-15 07:22] VITALS: BP 121/62
[2023-03-15] MEDS: VANCOMYCIN 1 GM/NS 250 ML IVPB IV SCH ×2 (08:07)
[2023-03-15] MEDS: THIAMINE INJECTION 100 MG, FOLIC ACID INJECTION 1 MG, VITAMIN MULTI INJECTION 10 ML, MA... IV SCH ×5 (08:08)
[2023-03-15] MEDS: HYPOCHLOROUS ACID/NaCl (VASHE) 250 ML IR SCH (08:20)
--- NOTE | 2023-03-15 10:43 | Progress Note ---
Progress Note Was unable to DC yesterday due to transportation issues. Spoke with nurse and she has called for a ride and they are supposed to be here today. Patient has no complaints. Agrees with plan to DC still. Laying in bed with no distress. RRR, lungs CTAB. DC home. LUCY MOLINA MD March 15, 2023 10:43
[2023-03-15] MEDS: ENOXAPARIN 40 MG/0.4 ML (LOVENOX) SYR SQ SCH (11:36)
[2023-03-15] MEDS: PREGABALIN 75 MG (LYRICA) CAP PO PRN (12:03)
[2023-03-15] MEDS: oxyCODONE/APAP 5/325MG (PERCOCET 5) TABLET PO PRN (12:03)
[2023-03-15 12:23] VITALS: BP 121/55
== END 2023-03-15 13:51 | disposition home or self-care (01) | DRG 872 ==
LOC: EDUNIT# 04:14 → ER 04:15 → ICU 06:19 → 4TH 03-14 22:55
PROVIDERS: ADMIT Internal Medicine; ATTEND Internal Medicine
DX: A41.9 Sepsis, unspecified organism (principal); L97.129 Non-pressure chronic ulcer of left thigh with unspecified severity; L97.119 Non-pressure chronic ulcer of right thigh with unspecified severity; E87.20 Acidosis, unspecified; I73.9 Peripheral vascular disease, unspecified; R65.20 Severe sepsis without septic shock; E86.0 Dehydration; F17.210 Nicotine dependence, cigarettes, uncomplicated; Z89.612 Acquired absence of left leg above knee; Z89.611 Acquired absence of right leg above knee; E87.6 Hypokalemia; K80.20 Calculus of gallbladder without cholecystitis without obstruction; Z86.718 Personal history of other venous thrombosis and embolism; F10.10 Alcohol abuse, uncomplicated
CPT/HCPCS: 36415; 76705; 80053; 81000; 83605; 83735; 84100; 85025; 85610; 85730; 87040; 87070; 87081; 87088; 87205

== ENCOUNTER 2023-05-12 23:58 | Observation (INO) | payer MEDICAID ==
[~2023-05-12] VITALS: Ht 111.8 cm; Wt 77.0 kg
[~2023-05-12 23:58] MED LIST changes: +CEPH500T PO
[2023-05-13 00:29] LABS: BASOPHILS % (AUTO) 0 % (0-10); EOSINOPHILS # (AUTO) 0.1 10^3/uL (0.0-0.3); EOSINOPHILS % (AUTO) 1 % (0-10); HEMATOCRIT 40 % (40-54); HEMOGLOBIN 13.1 g/dL (13.3-17.7); LYMPHOCYTES # (AUTO) 1.1 10^3/uL (1.0-4.0); LYMPHOCYTES % (AUTO) 16 % (12-44); MEAN CORPUSCULAR HEMOGLOBIN 29 pg (25-34); MEAN CORPUSCULAR HGB CONC 33 g/dL (32-36); MEAN CORPUSCULAR VOLUME 88 fL (80-99); MEAN PLATELET VOLUME 8.7 fL (9.0-12.2); MONOCYTES # (AUTO) 0.5 10^3/uL (0.0-1.0); MONOCYTES % (AUTO) 7 % (0-12); NEUTROPHILS # (AUTO) 5.3 10^3/uL (1.8-7.8); NEUTROPHILS % (AUTO) 75 % (42-75); PLATELET COUNT 236 10^3/uL (130-400); WHITE BLOOD COUNT 7.1 10^3/uL (4.3-11.0)
[2023-05-13 00:33] LABS: ALBUMIN 2.7 GM/DL (3.2-4.5); PROTHROMBIN TIME PATIENT 13.7 SEC (12.2-14.7)
[2023-05-13 00:34] LABS: CALCIUM 7.8 MG/DL (8.5-10.1)
[2023-05-13 00:35] LABS: TOTAL PROTEIN 5.9 GM/DL (6.4-8.2)
[2023-05-13 00:36] LABS: POTASSIUM 2.1 MMOL/L (3.6-5.0)
[2023-05-13 00:37] LABS: BILIRUBIN,TOTAL 0.7 MG/DL (0.1-1.0)
[2023-05-13 00:39] LABS: CREATININE SERUM 0.56 MG/DL (0.60-1.30)
--- NOTE | 2023-05-13 00:41 | ED Integumentary General ---
General Chief Complaint: Skin/Wound Problems Stated Complaint: LEAKING WOUND Nursing Triage Note: PT TO RM 9 BY EMS WITH CC OF WOUND ON BILATE UPPER LEGS. PT STATES WOUNDS HAVE BEEN THERE "FOR AWHILE" PAIN INCREASED THIS PM. PT BILAT LEG SWELLING. Source: patient Exam Limitations: no limitations History of Present Illness Date Seen by Provider: May 13, 2023 Time Seen by Provider: 00:41 Initial Comments Patient is a 43-year-old male who presents to the emergency department with a chief complaint of bilateral leg pain. Patient has had increasing pain over the last 24 hours. He is status post [id number] amputations for chronic vascular disease. Chronically noncompliant with medications. He states that his "wheelchair is broken" which limits him from being able to get out of the house. He states he is never established with a primary care doctor. He does not use any type of medical transportation for doctor visits. He does have home health that comes once a week to change his bandages. He states that he cannot go into a intermediate because he would have to quit his job and he works from home. EMS reports that on their visits to the home the patient is chronically sitting in feces and urine soaked bedding as well as feces and urine soaked wheelchair. Timing/Duration: getting worse Severity: severe Location: extremities Possible Cause: other (chronic wounds) Associated Symptoms: malaise Allergies and Home Medications Allergies Coded Allergies: No Known Drug Allergies (Unverified , 08/04/21) He denies allergies to drugs and food, says he has seasonal allergies Patient Home Medication List Home Medication List Reviewed: Yes Cyclobenzaprine HCl (Cyclobenzaprine HCl) 5 Mg Tablet, 5 MG PO Q8H PRN for MUSCLE SPASMS, (Reported) Entered as Reported by: JO DAVISON on 03/03/231348 Last Action: Converted Pregabalin (Pregabalin) 75 Mg Capsule, 75 MG PO BID PRN for PAIN-BREAKTHROUGH, (Reported) Entered as Reported by: JO DAVISON on 03/03/231348 Last Action: Continued Discontinued Medications Cephalexin (Cephalexin) 500 Mg Tablet, 500 MG PO BID Discontinued Reason: No Longer Taking Prescribed by: LUCY MOLINA on 03/14/23 1933 Last Action: Discontinued Sennosides (Senna Laxative) 8.6 Mg Tablet, 8.6 MG PO DAILY, (Reported) Discontinued Reason: No Longer Taking Entered as Reported by: JO GRIFFINZANT on 03/03/23 2459 Last Action: Discontinued Review of Systems Review of Systems Constitutional: see HPI EENTM: no symptoms reported Respiratory: no symptoms reported Cardiovascular: no symptoms reported Gastrointestinal: no symptoms reported Musculoskeletal: other (leg pain) Skin: other (wounds to backs of thighs) All Other Systems Reviewed Negative Unless Noted: Yes Past Rjvaisx-Edvlaj-Ympizs Hx Patient Social History Tobacco Use?: Yes Tobacco type used: Cigarettes Smoking Status: Current Everyday Smoker Substance use?: No Alcohol Use?: Yes Alcohol type: Beer Alcohol Frequency: Several times a month Pt feels they are or have been: No Immunizations Up To Date First/Initial COVID19 Vaccinat: DOESN'T PLAN ON TAKING IT Second COVID19 Vaccination Baer: DOESN'T PLAN ON TAKING IT Third COVID19 Vaccination Date: DOESN'T PLAN ON TAKING IT Seasonal Allergies Seasonal Allergies: Yes Past Medical History Surgery/Hospitalization HX: -bilateral foot surgerys/toe amputations - first 3 toes on each food removed -all teeth pulled/removed pad/dvt, psoraisis bi lat below the knee amputation Surgeries: Yes Abdominal, Amputation, Orthopedic Respiratory: No Cardiac: Yes (PAD; DVT'S ) Deep Vein Thrombosis, Peripheral Vascular Neurological: No Genitourinary: No Gastrointestinal: No Musculoskeletal: Yes (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 -ALL TEETH REMOVED -HERNIA REPAIR Physical Exam Vital Signs Vital Signs - First Documented 05/13/23 00:03 Temp 37.0 Pulse 86 Resp 18 B/P (MAP) 107/75 (86) Pulse Ox 99 O2 Delivery Nasal Cannula O2 Flow Rate 2.00 Capillary Refill : Less Than 3 Seconds General Appearance: other (chronically ill; dishevelled and dirty/unkempt) HEENT: PERRL/EOMI Cardiovascular: regular rate, rhythm Respiratory: lungs clear, normal breath sounds, no respiratory distress, no accessory muscle use Extremities: swelling (3+ pitting edema to bilateral upper legs), other (no subcutaneous crepitance) Neurologic/Psychiatric: alert, normal mood/affect, oriented x 3 Skin: normal color, other (patient has diffuse erythema to posterior aspects of both thighs; with necrotic wounds at the central portion of both thighs. the right thigh is about 4cm in length by 2cm in width with a central eschar; the left is worse - cavitary and about 8cm in length by 4cm in width) Skin Problem Character: erythema, lesion Progress/Results/Core Measures Results/Orders Lab Results Laboratory Tests Test 05/13/23 00:12 05/13/23 01:00 05/13/23 02:26 Range/Units White Blood Count 7.1 4.3-11.0 10^3/uL Red Blood Count 4.59 4.30-5.52 10^6/uL Hemoglobin 13.1 L 13.3-17.7 g/dL Hematocrit 40 40-54 % Mean Corpuscular Volume 88 80-99 fL Mean Corpuscular Hemoglobin 29 25-34 pg Mean Corpuscular Hemoglobin Concent 33 32-36 g/dL Red Cell Distribution Width 22.0 H 10.0-14.5 % Platelet Count 236 130-400 10^3/uL Mean Platelet Volume 8.7 L 9.0-12.2 fL Immature Granulocyte % (Auto) 1 % Neutrophils (%) (Auto) 75 42-75 % Lymphocytes (%) (Auto) 16 12-44 % Monocytes (%) (Auto) 7 0-12 % Eosinophils (%) (Auto) 1 0-10 % Basophils (%) (Auto) 0 0-10 % Neutrophils # (Auto) 5.3 1.8-7.8 10^3/uL Lymphocytes # (Auto) 1.1 1.0-4.0 10^3/uL Monocytes # (Auto) 0.5 0.0-1.0 10^3/uL Eosinophils # (Auto) 0.1 0.0-0.3 10^3/uL Basophils # (Auto) 0.0 0.0-0.1 10^3/uL Immature Granulocyte # (Auto) 0.0 0.0-0.1 10^3/uL Erythrocyte Sedimentation Rate 17 H 0-15 MM/HR Prothrombin Time 13.7 12.2-14.7 SEC INR Comment 1.0 0.8-1.4 Activated Partial Thromboplast Time 34 24-35 SEC Sodium Level 138 135-145 MMOL/L Potassium Level 2.1 *L 3.6-5.0 MMOL/L Chloride Level 99 98-107 MMOL/L Carbon Dioxide Level 25 21-32 MMOL/L Anion Gap 14 5-14 MMOL/L Blood Urea Nitrogen 6 L 7-18 MG/DL Creatinine 0.56 L 0.60-1.30 MG/DL Estimat Glomerular Filtration Rate 125 BUN/Creatinine Ratio 11 Glucose Level 85 70-105 MG/DL Lactic Acid Level 2.90 *H 1.82 0.50-2.00 MMOL/L Calcium Level 7.8 L 8.5-10.1 MG/DL Corrected Calcium 8.8 8.5-10.1 MG/DL Magnesium Level 1.8 1.6-2.4 MG/DL Total Bilirubin 0.7 0.1-1.0 MG/DL Aspartate Amino Transf (AST/SGOT) 26 5-34 U/L Alanine Aminotransferase (ALT/SGPT) 19 0-55 U/L Alkaline Phosphatase 149 H 40-136 U/L Total Protein 5.9 L 6.4-8.2 GM/DL Albumin 2.7 L 3.2-4.5 GM/DL Urine Color YELLOW Urine Clarity CLEAR Urine pH 6.5 5-9 Urine Specific [place] 1.020 1.016-1.022 Urine Protein 1+ H NEGATIVE Urine Glucose (UA) NEGATIVE NEGATIVE Urine Ketones NEGATIVE NEGATIVE Urine Nitrite NEGATIVE NEGATIVE Urine Bilirubin 1+ H NEGATIVE Urine Urobilinogen 2.0 < = 1.0 MG/DL Urine Leukocyte Esterase NEGATIVE NEGATIVE Urine RBC (Auto) NEGATIVE NEGATIVE Urine RBC 0-2 /HPF Urine WBC 5-10 H /HPF Urine Crystals NONE /LPF Urine Bacteria TRACE /HPF Urine Casts PRESENT /LPF Urine Hyaline Casts 2-5 H /LPF Urine White Blood Cell Casts 0-2 H /LPF Urine Mucus SMALL H /LPF Urine Culture Indicated CULTURE PENDING Micro Results Microbiology 05/13/23 Urine Culture - Final, Complete NO GROWTH 05/13/23 Gram Stain - Final, Resulted 05/13/23 Wound Culture - Preliminary, Resulted Pseudomonas aeruginosa Mixed Bacterial Aleta Culture In Progress 05/13/23 Gram Stain - Final, Resulted 05/13/23 Wound Culture - Preliminary, Resulted Pseudomonas aeruginosa Mixed Bacterial Aleta 05/13/23 Blood Culture - Preliminary, Resulted Staph, Coag Neg (SILK EXAMINER) 05/13/23 Blood Culture - Final, Complete Staph, Coag Neg (SILK EXAMINER) My Orders Orders - KYE FINCH MD Cbc With Automated Diff (05/13/23 00:22) Comprehensive Metabolic Panel (05/13/23 00:22) Blood Culture (05/13/23 00:22) Urinalysis (05/13/23 00:22) Urine Culture (05/13/23 00:22) Protime With Inr (05/13/23 00:22) Partial Thromboplastin Time (05/13/23 00:22) Chest 1 View, Ap/Pa Only (05/13/23 00:22) Ed Iv/Invasive Line Start (05/13/23 00:22) Ed Iv/Invasive Line Start (05/13/23 00:22) Vital Signs Adult Sepsis Patie Q15M (05/13/23 00:22) O2 (05/13/23 00:22) Lactic Acid Analyzer (05/13/23 00:22) Lidocaine 2% (Urojet) (Xylocaine Urojet) (05/13/23 00:53) Erythrocyte Sedimentation Rate (05/13/23 00:57) Wound Culture (05/13/23 00:58) Wound Culture (05/13/23 00:58) Potassium Cl 10meq/50ml Ivpb (Kcl 10 Meq (05/13/23 01:00) Ns Iv 1000 Ml (Sodium Chloride 0.9%) (05/13/23 01:00) Cefazolin Injection (Ancef Injection) (05/13/23 01:00) Vancomycin Injection (Vancomycin Injecti (05/13/23 01:00) Magnesium (05/13/23 01:01) Fentanyl Inj (Sublimaze Injection) (05/13/23 01:30) Ns Iv 1000 Ml (Sodium Chloride 0.9%) (05/13/23 02:52) Medications Given in ED Vital Signs/I&O 05/13/23 05/13/23 05/13/23 05/13/23 00:03 00:03 05:38 05:43 Temp 37.0 37.0 37.0 Pulse 86 93 100 Resp 18 16 B/P (MAP) 107/75 (86) 92/57 110/75 (97) Pulse Ox 99 99 99 92 O2 Delivery Nasal Cannula Nasal Cannula Nasal Cannula Nasal Cannula O2 Flow Rate 2.00 2.00 2.00 2.00 Blood Pressure Mean: 86 Progress Progress Note : Time: 03:11 Progress Note Patient seen and evaluated by me, evaluation today includes physical exam, "sepsis protocol", CBC, CH12, UA, Lactic acid, blood cultures, ESR, magnesium level, CXR, wound cultures. Pertinent physical exam findings - 43yo male who appears much older than stated age, chronically ill with bilateral AKA's. Stable VS, afebrile. Heart is regular, lungs are clear. Abdomen distended. NT. Skin exam reveals significant erythema to the bilateral posterior thighs with open ulcers containing central eschars. the wound to the left posterior thigh has some oozing blood. Thighs are significant edematous and very tender to palpation. No subq crepitance. No woody skin changes. Ddx based on H&P - sepsis due to cellulitis, osteomyelitis Labs independently reviewed and interpreted by me - CBC shows a total WBC 7.1 with normal H&H and platelets. CH12 shows potassium critically low at 2.1, BUN 6 and creatinine 0.56, Mag 1.8, Lactic acid initial 2.90 and decreased to 1.82 while in ED. Coags are WNL and UA has 5-10 WBC with trace bacteria, neg nitrite. His CXR is remarkable for significant dilated colon (above the liver on the right_ with no infiltrates or effusions. He is treated for sepsis/cellulitis of the posterior thighs bilaterally with Ancef 2g and Vancomycin 1g. He is started on potassium replacement protocol. He is given 50mcg fentanyl for pain and NS. Patient did have a BM here in the ED. No vomiting - no clinical findings suggestive of bowel obstruction. He achieved sig relief with the pain meds and has been resting comfortably. Will admit to ICU due to critical potassium. Awaiting discussion with Dr Cordova. Diagnostic Imaging Diagonstic Imaging: Xray Plain Films/CT/US/NM/MRI: chest Comments Chest xray - independently interpreted by me - dilated large bowel in the upper abdomen; low lung volumes; no obvious infiltrate or effusions Departure Communication (Admissions) Discussed with Dr Cordova (hospitalist) accepts admission to ICU for critical K level Impression Primary Impression: Sepsis due to cellulitis Additional Impressions: Hypokalemia Medical non-compliance Disposition: ADMITTED INPATIENT Condition: Critical Admissions Decision to Admit Reason: Admit from ER (General) Decision to Admit/Date: May 13, 2023 Time/Decision to Admit Time: 01:25 Departure-Patient Inst. Referrals: NO,LOCAL PHYSICIAN (PCP/Family) Primary Care Physician KYE FINCH MD May 13, 2023 00:41
[2023-05-13] MEDS ORDERED: LIDOCAINE UROJET 2% GEL 10 ML PKG ONE (00:53)
[2023-05-13] MEDS ORDERED: NS IV 1000 ML 1,000 ML IV SCH (01:00)
[2023-05-13] MEDS ORDERED: VANCOMYCIN INJECTION 1,000 MG in NS (IVPB) 250 ML 250 ML IV ONE (01:00)
[2023-05-13] MEDS ORDERED: ceFAZolin INJECTION 2,000 MG in NS (IVPB) 50 ML 50 ML IV ONE (01:00)
[2023-05-13 01:07] LABS: CLARITY,URINE CLEAR; COLOR,URINE YELLOW; GLUCOSE, URINE (UA) NEGATIVE (NEGATIVE); KETONES,URINE NEGATIVE (NEGATIVE); LEUKOCYTE ESTERASE ,URINE NEGATIVE (NEGATIVE); NITRITE,URINE NEGATIVE (NEGATIVE); PH,URINE 6.5 (5-9); PROTEIN,URINE 1+ (NEGATIVE)
[2023-05-13] MEDS: POTASSIUM CL 10MEQ/50ML IVPB 50 ML IV SCH ×15 (01:17→22:21)
[2023-05-13 01:19] LABS: BACTERIA,URINE TRACE /HPF; RBC,URINE 0-2 /HPF; WHITE BLOOD CELL CASTS, URINE 0-2 /LPF
[2023-05-13 01:20] LABS: BILIRUBIN,URINE 1+ (NEGATIVE)
[2023-05-13] MEDS ORDERED: fentaNYL INJ 100 MCG/2 ML AMP IVP ONE (01:30)
[2023-05-13] MEDS ORDERED: NS IV 1000 ML 1,000 ML ONE ×2 (02:52→06:41)
[2023-05-13 06:10] LABS: BASOPHILS % (AUTO) 0 % (0-10); EOSINOPHILS # (AUTO) 0.2 10^3/uL (0.0-0.3); EOSINOPHILS % (AUTO) 3 % (0-10); HEMATOCRIT 34 % (40-54); HEMOGLOBIN 11.2 g/dL (13.3-17.7); LYMPHOCYTES # (AUTO) 1.5 10^3/uL (1.0-4.0); LYMPHOCYTES % (AUTO) 25 % (12-44); MEAN CORPUSCULAR HEMOGLOBIN 29 pg (25-34); MEAN CORPUSCULAR HGB CONC 33 g/dL (32-36); MEAN CORPUSCULAR VOLUME 86 fL (80-99); MEAN PLATELET VOLUME 8.9 fL (9.0-12.2); MONOCYTES # (AUTO) 0.5 10^3/uL (0.0-1.0); MONOCYTES % (AUTO) 9 % (0-12); NEUTROPHILS # (AUTO) 3.7 10^3/uL (1.8-7.8); NEUTROPHILS % (AUTO) 63 % (42-75); PLATELET COUNT 212 10^3/uL (130-400); WHITE BLOOD COUNT 5.9 10^3/uL (4.3-11.0)
[2023-05-13 06:22] VITALS: BP 107/75
[2023-05-13 06:23] LABS: ALBUMIN 2.2 GM/DL (3.2-4.5)
[2023-05-13 06:24] LABS: CALCIUM 7.2 MG/DL (8.5-10.1)
[2023-05-13 06:25] LABS: TOTAL PROTEIN 4.8 GM/DL (6.4-8.2)
[2023-05-13 06:27] LABS: BILIRUBIN,TOTAL 0.6 MG/DL (0.1-1.0)
[2023-05-13 06:28] LABS: PHOSPHORUS 2.7 MG/DL (2.3-4.7)
[2023-05-13 06:29] LABS: CREATININE SERUM 0.5 MG/DL (0.60-1.30)
[2023-05-13 06:30] LABS: POTASSIUM 1.9 MMOL/L (3.6-5.0)
[2023-05-13 06:32] LABS: MAGNESIUM 1.5 MG/DL (1.6-2.4)
[2023-05-13] MEDS ORDERED: POTASSIUM CL 10MEQ/50ML IVPB 400 ML IV ONE ×2 (06:41→20:09)
[2023-05-13] MEDS ORDERED: MAGNESIUM 1 GM/100 ML IVPB 400 ML IV ONE (06:41)
[2023-05-13] MEDS ORDERED: fentaNYL INJ 100 MCG/2 ML AMP IV PRN (06:45)
[2023-05-13] MEDS ORDERED: NS IV 500 ML 500 ML IV PRN ×2 (06:45)
[2023-05-13] MEDS ORDERED: ONDANSETRON 4 MG/2 ML (SDV) Z0FRAN IV PRN (06:45)
[2023-05-13] MEDS ORDERED: RT-ALBUTEROL SULF 2.5 MG/3 ML PRE-MIX VIAL INH PRN (07:00)
[2023-05-13] MEDS: NS IV 1000 ML 1,000 ML IV SCH ×2 (07:03→18:28)
[2023-05-13] MEDS: MAGNESIUM 1 GM/100 ML IVPB 100 ML IV SCH ×4 (07:03→09:36)
[2023-05-13] MEDS: POTASSIUM BICARB 20 MEQ (EFFER-K) TABLET PO SCH (07:05)
[2023-05-13] MEDS: KCL 20 MEQ TAB (K-DUR) PO SCH (07:05)
--- NOTE | 2023-05-13 08:15 | Diagnostic Imaging Report ---
HISTORY: Sepsis COMPARISON: 05/05/2022 TECHNIQUE: Frontal view the chest FINDINGS: Lung volumes are low. No consolidation is seen. There is no pleural effusion or pneumothorax. The cardiac silhouette is normal in size. There does appear to be gaseous distention of colon under the diaphragm, which is partially seen. IMPRESSION: 1. Low lung volumes with no acute pulmonary abnormality seen. 2. Gaseous distention of colon in the upper abdomen. Dictated by: Dictated on workstation # [id number]
[2023-05-13] MEDS: ceFAZolin INJECTION 2,000 MG in NS (IVPB) 50 ML 50 ML IV SCH ×2 (09:35→18:24)
[2023-05-13] MEDS ORDERED: ACETAMINOPHEN 325 MG TABLET PO PRN (09:45)
[2023-05-13] MEDS ORDERED: diphenhydrAMINE 25 MG TABLET PO PRN ×2 (09:45)
[2023-05-13] MEDS ORDERED: LOPERAMIDE 2 MG (IMODIUM) TABLET PO PRN (09:45)
[2023-05-13] MEDS ORDERED: CALCIUM CARBONATE 500 MG CHEW TABLET PO PRN (09:45)
[2023-05-13] MEDS ORDERED: MELATONIN 3 MG TABLET PO PRN (09:45)
[2023-05-13] MEDS ORDERED: ALPRAZolam 0.25 MG TABLET PO PRN (09:45)
[2023-05-13] MEDS ORDERED: BISACODYL 10 MG SUPPOSITORY PR PRN (09:45)
[2023-05-13] MEDS ORDERED: ONDANSETRON 4 MG/2 ML (SDV) Z0FRAN IVP PRN (09:45)
[2023-05-13] MEDS ORDERED: ONDANSETRON 4 MG (ZOFRAN) ORAL DISSOLVE TAB PO PRN (09:45)
[2023-05-13] MEDS ORDERED: DOCUSATE SODIUM 100 MG CAPSULE PO PRN (09:45)
[2023-05-13] MEDS ORDERED: LACTULOSE SYRUP 10GM/15ML (ENULOSE) 30ML UDC PO PRN (09:45)
[2023-05-13] MEDS ORDERED: MENTHOL/ZINC OXIDE OINTMENT 113 GM TUBE TP PRN (09:45)
--- NOTE | 2023-05-13 10:48 | History & Physical ---
CRISTIANE CHANEY 05/13/23 1047: History of Present Illness History of Present Illness Reason for visit/HPI Alex Ma is a 43yo M with past medical history of peripheral vascular disease leading to bilateral above the knee amputations, DVT, and chronic leg wounds who presented to the ED on 05/12 with complaints of increased LE swelling and erythema. He notes the swelling has slowly worsened for 2-3 months but the redness and pain began around 1 week ago. In the ED he was found to have ulcerated lesions present on the posterior portions of both thighs that was red with central necrosis and surrounding erythema. He was afebrile with a normal WBC count but did have an elevated lactic acid. Urine was sent for culture. Wound culture was also obtained. He was given cefazolin and vancomycin and pain medication. His potassium was low at 2.1 and replacement was began. He was then admitted. This morning he notes improvement of his posterior thigh pain, although they are still operator whiskey to the touch and he would not let me examine his wounds secondary to pain. He reports that he has known about these wounds for several months but has not had the pain and swelling until recently. He reports that he has not had fever or chills. He is tolerating his diet without N/V/D. He denies chest pain, shortness of breath, and palpitations. He has had issues with LE infection and nonhealing wounds before that lead to toe amputation bilaterally and eventually bilateral AKAs. He reports he does not take medications consistently at home and he does not see a primary care provider. Date of Admission May 13, 2023 at 05:44 Time Seen by a Provider: 09:45 I consulted on this patient on 05/13/23 10:38 Attending Physician No,Local Physician Admitting Physician Admitting Physician: Maryanne Lind DO Attending Physician: Maryanne Lind DO Consult Allergies and Home Medications Allergies Coded Allergies: No Known Drug Allergies (Unverified , 08/04/21) He denies allergies to drugs and food, says he has seasonal allergies Patient Home Medication List Home Medication List Reviewed: Yes Cyclobenzaprine HCl (Cyclobenzaprine HCl) 5 Mg Tablet, 5 MG PO Q8H PRN for MUSCLE SPASMS, (Reported) Entered as Reported by: JO DAVISON on 03/03/23 6319 Last Action: Reviewed Pregabalin (Pregabalin) 75 Mg Capsule, 75 MG PO BID PRN for PAIN-BREAKTHROUGH, (Reported) Entered as Reported by: JO DAVISON on 03/03/231348 Last Action: Reviewed Discontinued Medications Cephalexin (Cephalexin) 500 Mg Tablet, 500 MG PO BID Discontinued Reason: No Longer Taking Prescribed by: LUCY MOLINA on 03/14/23 09 Last Action: Discontinued Sennosides (Senna Laxative) 8.6 Mg Tablet, 8.6 MG PO DAILY, (Reported) Discontinued Reason: No Longer Taking Entered as Reported by: JO DAVISON on 03/03/231348 Last Action: Discontinued Past Tahydcj-Icwdky-Lxpdau Hx Patient Social History Tobacco Use?: Yes Tobacco type used: Cigarettes Smoking Status: Current Everyday Smoker Use of E-Cig and/or Vaping dev: No Substance use?: No Alcohol Use?: Yes Alcohol type: Hard Liquor Alcohol Frequency: Several times a month Pt feels they are or have been: No Immunizations Up To Date First/Initial COVID19 Vaccinat: DOESN'T PLAN ON TAKING IT Second COVID19 Vaccination Bear: DOESN'T PLAN ON TAKING IT Tetanus Booster (TDap): Less Than 5 Years Hepatitis A: Yes Hepatitis B: Yes Seasonal Allergies Seasonal Allergies: Yes Current Status Advance Directives: No Communicates: Verbally Primary Language: Micronesian Preferred Spoken Language: Micronesian Is interpretation needed?: No Sensory deficits: Vision impairment Past Medical History Surgeries: Abdominal (hernia repair as a child), Amputation, Orthopedic Chronic Edema/Swelling, Deep Vein Thrombosis, Peripheral Vascular Amputee Psoriasis Blood Disorders: Yes (DVT'S) Family Medical History No Pertinent Family Hx EXTREME NON-COMPLIANCE IN ALL ASPECTS OF CARE SOCIAL HISTORY: -SMOKES 2-3 PPD -ETOH--DRINKS 1.75 LITERS OF HARD LIQUOR DAILY--STATES LATELY HE HAS ONLY BEEN DRINKING "3 OR 4 GLASSES" OF HARD LIQUOR/DAY. 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 -ALL TEETH REMOVED -HERNIA REPAIR Review of Systems Constitutional: No chills, No diaphoresis, No fever EENTM: No hearing loss, No vision loss Respiratory: cough; No short of breath, No wheezing Cardiovascular: No chest pain, No palpitations Gastrointestinal: No abdominal pain, No nausea, No vomiting Genitourinary: No dysuria, No hematuria Psychiatric/Neurological: Denies Headache, Denies Seizure Physical Exam Vital Signs Vital Signs - First Documented 05/13/23 05/13/23 00:03 06:22 Temp 37.0 Pulse 86 Resp 18 B/P (MAP) 107/75 (86) Pulse Ox 99 O2 Delivery Nasal Cannula O2 Flow Rate 2.00 FiO2 28 Capillary Refill : Less Than 3 Seconds Height, Weight, BMI Height: '" Weight: lbs. oz. kg; 54.96 BMI Method: General Appearance: No Apparent Distress, WD/WN HEENT: PERRL/EOMI, Moist Mucous Membranes Neck: Non Tender, Supple Respiratory: Lungs Clear, No Accessory Muscle Use, No Respiratory Distress Cardiovascular: Regular Rate, Rhythm, No Murmur Gastrointestinal: Non Tender, Soft; No Distended, No Guarding Rectal: Deferred Extremity: Inflammation, Swelling, Other (bl AKA) Skin: Erythema, Other (ulcerative lesions on posterior thighs) Assessment/Plan Assessment and Plan Cellulitis Nonhealing wound Sepsis Lactic acidosis Possible UTI Bilateral wounds present on posterior thigh Afebrile and normal WBC count Sepsis criteria of tachycardia >90, RR>20, source on infection, and lactic acid of 2.9 Continue cefazolin 2gm IV q8hr Continue Vancomycin 1gm BID IV Vanc trough pending Wound culture pending Lactic acid normalized to 1.8 No signs of hemodynamic instability Continue IV fluids UA positive for WBCs and trace bacteria, culture pending Wound care consulted General surgery consulted Tele ICU consulted Appreciate recs from consult services Hypokalemia 2.1 in ED, fell to 1.9 in spite of replacement initiation Continue IV and oral replacement 80meq IV ordered for today 40 meq PO today Monitor K+ level Peripheral vascular disease Bilateral AKA Chronic tobacco abuse encourage smoking cessation needs established with PCP Hx of noncompliance to medication Diet- sodium restricted, 2gm per day DVT ppx- lovenox 40mg SQ daily Code status- full Admission Diagnosis Admission Status: Inpatient Order (span 2 midnights) Reason for Inpatient Admission: cellulits hypokalemia MARYANNE LIND DO 05/13/23 1938: Allergies and Home Medications Allergies Coded Allergies: No Known Drug Allergies (Unverified , 08/04/21) He denies allergies to drugs and food, says he has seasonal allergies Patient Home Medication List Cyclobenzaprine HCl (Cyclobenzaprine HCl) 5 Mg Tablet, 5 MG PO Q8H PRN for MUSCLE SPASMS, (Reported) Entered as Reported by: JO DAVISON on 03/03/231348 Last Action: Reviewed Pregabalin (Pregabalin) 75 Mg Capsule, 75 MG PO BID PRN for PAIN-BREAKTHROUGH, (Reported) Entered as Reported by: JO DAVISON on 03/03/231348 Last Action: Reviewed Discontinued Medications Cephalexin (Cephalexin) 500 Mg Tablet, 500 MG PO BID Discontinued Reason: No Longer Taking Prescribed by: LUCY MOLINA on 03/14/23921 Last Action: Discontinued Sennosides (Senna Laxative) 8.6 Mg Tablet, 8.6 MG PO DAILY, (Reported) Discontinued Reason: No Longer Taking Entered as Reported by: JO DAVISON on 03/03/231348 Last Action: Discontinued Supervisory-Addendum Brief Verification & Attestation Participated in pt care: history, MDM, physical Personally performed: exam, history, MDM, supervision of care Care discussed with: Medical Student Procedures: n/a Results interpretation: Verified all documentation Verification and Attestation of Medical Student E/M Service A medical student performed and documented this service in my presence. I revie wed and verified all information documented by the medical student and made modifications to such information, when appropriate. I personally performed the physical exam and medical decision making. Maryanne Lind May 13, 2023,19:38 CRISTIANE CHANEY May 13, 2023 10:47 MARYANNE LIND DO May 13, 2023 19:38
[2023-05-13] MEDS: VANCOMYCIN 1 GM/NS 250 ML IVPB IV SCH ×4 (12:14→22:15)
[2023-05-13] MEDS: ENOXAPARIN 40 MG/0.4 ML SYRINGE SC SCH (12:19)
--- NOTE | 2023-05-13 14:28 | Tele-ICU Progress Note ---
Subjective Date Seen by a Provider: May 13, 2023 Subjective/Events-last exam (Tele-ICU Physician, consultation as per request of PCP Service provided via interactive audio and video telecommunications E-CARE system to a patient admitted to ICU bed in [facility]. Available chart/ vitals / labs / Images reviewed H&P is from ER notes Patient's information available about PMH, Shx, Fhx allergy reviewed inEMR. ROS as per chart and RN report Video assessment done using teleICU camera, rest of exam as per RN Discussed with RN. Hospital course 43yo M with PMHx of PVD c/b aram knee amputations, DVT, chronic leg wounds who presented to ED with c/o LE swelling found to have elevated lactic acidosis admitted to MICU for concern for possible septic shock. Of noted found to have ulcerated wounds on posterior thighs bilaterally. blood and wound cultures were drawn. He was started on broad spectrum anitbiotics. He is currently on 2L NC A/p: Sepsis: Likely 2/2 wounder infection. Noted to have elevated lactate which has improved with IVF hydration. -Will cont on broad spectrum antibiotics. Await wound cultures Hypokalemia: K 1.9 -Will replace with KCL and recheck. Lines : PIV, (Central Line Necessity Reviewed) Funk: n/a OG: Nutrition: General Analgesia: Anxiety/ delirium DVT ppx- lovenox 40mg SQ daily Code status- full Plans in collaboration with bedside consultants and IM MDs. Discussed with RN to reach out if any questions or concerns Case and care daily discussed on multidisciplinary rounds ( RN, PharmD, Nutrit ionist , Respiratory Therapy, utility worker [employer] ) A total of 20 minutes of critical care time was devoted to this patient today, required to treat and/or prevent further deterioration of critical care condition (as above) Sepsis Event Evaluation Height, Weight, BMI Height: '" Weight: lbs. oz. kg; 54.96 BMI Method: Focused Exam Lactate Level 05/13/23 00:12: Lactic Acid Level 2.90*H 05/13/23 02:26: Lactic Acid Level 1.82 Exam Exam Patient acknowledged, consented, and participated in this virtual visit which was conducted using real time audio/video Vital Signs Date Time Temp Pulse Resp B/P (MAP) Pulse Ox O2 Delivery O2 Flow Rate FiO2 7/18/23 12:00 80 10 96/61 (73) 97 Room Air 05/13/23 11:43 36.1 05/13/23 11:00 78 24 101/59 (73) 97 Room Air 05/13/23 10:05 36.9 05/13/23 10:00 80 20 97/53 (68) 94 Room Air 05/13/23 09:00 81 26 94/63 (73) 92 Room Air 05/13/23 08:00 95 18 100/63 (75) 94 Room Air 05/13/23 07:36 36.9 05/13/23 07:00 83 05/13/23 07:00 86 12 101/74 (83) 95 Room Air 05/13/23 06:50 97 Room Air 0.00 05/13/23 06:50 78 26 94 Room Air 05/13/23 06:45 80 14 111/62 (78) 100 Nasal Cannula 2.00 05/13/23 06:45 99 Nasal Cannula 2.00 05/13/23 06:30 79 23 107/60 (76) 99 Nasal Cannula 2.00 05/13/23 06:22 37.0 84 99 28 05/13/23 06:19 99 Nasal Cannula 2.00 05/13/23 06:15 84 15 108/66 (77) 99 Nasal Cannula 2.00 05/13/23 06:00 84 14 108/64 (74) 99 Nasal Cannula 2.00 05/13/23 05:48 89 05/13/23 05:48 97 106/66 (83) 97 Nasal Cannula 2.00 05/13/23 05:43 37.0 100 110/75 (97) 92 Nasal Cannula 2.00 05/13/23 05:38 37.0 93 16 92/57 99 Nasal Cannula 2.00 05/13/23 00:03 37.0 86 18 107/75 (86) 99 Nasal Cannula 2.00 05/13/23 00:03 99 Nasal Cannula 2.00 I & O 05/13/23 07:00 Intake Total 2650 ml Output Total 0 ml Balance 2650 ml Height & Weight Height: '" Weight: lbs. oz. kg; 54.96 BMI Method: General Appearance: No Apparent Distress, WD/WN HEENT: PERRL/EOMI, Moist Mucous Membranes Neck: Non Tender, Supple Respiratory: Lungs Clear, No Accessory Muscle Use, No Respiratory Distress Cardiovascular: Regular Rate, Rhythm, No Murmur Capillary Refill: Less Than 3 Seconds Extremity: Inflammation, Swelling, Other (bl AKA) Skin: Erythema, Other (ulcerative lesions on posterior thighs) Results Lab Laboratory Tests 05/13/23 00:12 05/13/23 06:02 Assessment/Plan Assessment/Plan . ESPINOZA HAMPTON MD May 13, 2023 14:28
[2023-05-13 15:10] LABS: CREATININE SERUM 0.5 MG/DL (0.60-1.30)
[2023-05-13 15:25] LABS: POTASSIUM 2.1 MMOL/L (3.6-5.0)
--- NOTE | 2023-05-13 16:30 | Diagnostic Imaging Report ---
EXAM: US VENOUS LOWER EXT CATHLEEN INDICATION: Bilateral [id number] amputations and lower extremity edema. History of DVT. COMPARISON: None. TECHNIQUE: Duplex, maher-scale and color-flow imaging of the bilateral lower extremities venous system was performed FINDINGS: The bilateral common femoral and superficial femoral veins demonstrate normal flow by color Doppler. Compression evaluation was limited by edema, and response to augmentation is prohibited by the [id number] amputations. IMPRESSION: Limited exam as above. No evidence of deep venous thrombosis in the bilateral lower extremities. Dictated by: Dictated on workstation # [id number]
--- NOTE | 2023-05-13 17:18 | Consultation - Surgery ---
History of Present Illness History of Present Illness Patient Consulted On(bimal/time) 05/13/23 16:12 Date Seen by Provider: May 13, 2023 Time Seen by Provider: 16:12 History of Present Illness Consult requested by Dr. Cordova for bilateral lower extremity wounds/swelling. Patient is a 43-year-old male known to me. He has had chronic wounds and poor compliance after having above-knee amputations bilaterally. He was having increasing pain and swelling in bilateral lower extremities so went to the emergency department. He has not followed up with anybody to my knowledge except for having some wound care nursing once a week at his house he reports. He does not have any transportation or any but he helping with his overall care. He refuses to go to a nursing care facility for care previously. Patient had hypokalemia. He currently is not having any significant complaints. His pain is under control. Denies any nausea vomiting fever sweats chills shortness of breath or chest pain. Allergies and Home Medications Allergies Coded Allergies: No Known Drug Allergies (Unverified , 08/04/21) He denies allergies to drugs and food, says he has seasonal allergies Patient Home Medication List Home Medication List Reviewed: Yes Cyclobenzaprine HCl (Cyclobenzaprine HCl) 5 Mg Tablet, 5 MG PO Q8H PRN for MUSCLE SPASMS, (Reported) Entered as Reported by: JO DAVISON on 03/03/231348 Last Action: Reviewed Pregabalin (Pregabalin) 75 Mg Capsule, 75 MG PO BID PRN for PAIN-BREAKTHROUGH, (Reported) Entered as Reported by: JO DAVISON on 03/03/231348 Last Action: Reviewed Discontinued Medications Cephalexin (Cephalexin) 500 Mg Tablet, 500 MG PO BID Discontinued Reason: No Longer Taking Prescribed by: LUCY MOLINA on 03/14/23 8840 Last Action: Discontinued Sennosides (Senna Laxative) 8.6 Mg Tablet, 8.6 MG PO DAILY, (Reported) Discontinued Reason: No Longer Taking Entered as Reported by: JO DAVISON on 03/03/231348 Last Action: Discontinued Past Hdrdnvi-Bgizce-Whejpe Hx Patient Social History Smoking Status: Current Everyday Smoker Alcohol Use?: Yes Seasonal Allergies Seasonal Allergies: Yes Surgeries History of Surgeries: Yes Surgeries: Abdominal (hernia repair as a child), Amputation, Orthopedic Respiratory History of Respiratory Disorde: No Cardiovascular History of Cardiac Disorders: Yes (PAD; DVT'S ) Cardiac Disorders: Chronic Edema/Swelling, Deep Vein Thrombosis, Peripheral Vascular Neurological History of Neurological Disord: No Genitourinary History of Genitourinary Disor: No Gastrointestinal History of Gastrointestinal Di: No Musculoskeletal History of Musculoskeletal Dis: Yes (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) Musculoskeletal Disorders: Amputee Endocrine History of Endocrine Disorders: No HEENT History of HEENT Disorders: No (ALL TEETH REMOVED) Cancer History of Cancer: No Psychosocial History of Psychiatric Problem: No Integumentary History of Skin or Integumenta: Yes (CHRONIC LEG WOUNDS/GANGRENE) Skin/Integumentary Disorders: Psoriasis Blood Transfusions History of Blood Disorders: Yes (DVT'S) Reviewed Nursing Assessment Reviewed/Agree w Nursing PMH: Yes Family Medical History Significant Family History: No Pertinent Family Hx Review of Systems-General Constitutional: No chills, No diaphoresis EENTM: No blurred vision, No double vision Respiratory: No cough, No dyspnea on exertion Cardiovascular: No chest pain, No palpitations Gastrointestinal: No abdominal pain, No nausea, No vomiting Genitourinary: No decreased output, No discharge Musculoskeletal: No back pain, No joint pain; other (lower ext pain/swelling) Skin: other (chronic wounds) Psychiatric/Neurological: Denies Anxiety, Denies Depressed All Other Systems Reviewed Negative Unless Noted: Yes (Negative excepted noted.) Physical Exam-General Problems Physical Exam Vital Signs Vital Signs - First Documented 05/13/23 05/13/23 00:03 06:22 Temp 37.0 Pulse 86 Resp 18 B/P (MAP) 107/75 (86) Pulse Ox 99 O2 Delivery Nasal Cannula O2 Flow Rate 2.00 FiO2 28 Capillary Refill : Less Than 3 Seconds General Appearance: WD/WN, no apparent distress, other (unkempt appearance) HEENT: PERRL/EOMI, normal ENT inspection Neck: non-tender, supple Respiratory: chest non-tender, no respiratory distress, no accessory muscle use Cardiovascular: regular rate, rhythm, no JVD Gastrointestinal: non tender, soft Rectal: deferred Back: normal inspection, no CVA tenderness Extremities: other (b/l aka, wounds present but wont allow me to look at this time. swelling b/l stumps) Neurologic/Psychiatric: alert, normal mood/affect, oriented x 3 Skin: normal color, warm/dry Lymphatic: no adenopathy Data Review Labs Laboratory Tests 05/13/23 00:12: White Blood Count 7.1, Red Blood Count 4.59, Hemoglobin 13.1L, Hematocrit 40, Mean Corpuscular Volume 88, Mean Corpuscular Hemoglobin 29, Mean Corpuscular Hemoglobin Concent 33, Red Cell Distribution Width 22.0H, Platelet Count 236, Mean Platelet Volume 8.7L, Immature Granulocyte % (Auto) 1, Neutrophils (%) (Auto) 75, Lymphocytes (%) (Auto) 16, Monocytes (%) (Auto) 7, Eosinophils (%) (Auto) 1, Basophils (%) (Auto) 0, Neutrophils # (Auto) 5.3, Lymphocytes # (Auto) 1.1, Monocytes # (Auto) 0.5, Eosinophils # (Auto) 0.1, Basophils # (Auto) 0.0, Immature Granulocyte # (Auto) 0.0, Erythrocyte Sedimentation Rate 17H, Prothrombin Time 13.7, INR Comment 1.0, Activated Partial Thromboplast Time 34, Sodium Level 138, Potassium Level 2.1*L, Chloride Level 99, Carbon Dioxide Level 25, Anion Gap 14, Blood Urea Nitrogen 6L, Creatinine 0.56L, Estimat Glomerular Filtration Rate 125, BUN/Creatinine Ratio 11, Glucose Level 85, Lactic Acid Level 2.90*H, Calcium Level 7.8L, Corrected Calcium 8.8, Magnesium Level 1.8, Total Bilirubin 0.7, Aspartate Amino Transf (AST/SGOT) 26, Alanine Aminotransferase (ALT/SGPT) 19, Alkaline Phosphatase 149H, Total Protein 5.9L, Albumin 2.7L 05/13/23 01:00: Urine Color YELLOW, Urine Clarity CLEAR, Urine pH 6.5, Urine Specific [place] 1.020, Urine Protein 1+H, Urine Glucose (UA) NEGATIVE, Urine Ketones NEGATIVE, Urine Nitrite NEGATIVE, Urine Bilirubin 1+H, Urine Urobilinogen 2.0, Urine Leukocyte Esterase NEGATIVE, Urine RBC (Auto) NEGATIVE, Urine RBC 0-2, Urine WBC 5-10H, Urine Crystals NONE, Urine Bacteria TRACE, Urine Casts PRESENT, Urine Hyaline Casts 2-5H, Urine White Blood Cell Casts 0-2H, Urine Mucus SMALLH, Urine Culture Indicated CULTURE PENDING 05/13/23 02:26: Lactic Acid Level 1.82 05/13/23 06:02: White Blood Count 5.9, Red Blood Count 3.91L, Hemoglobin 11.2L, Hematocrit 34L, Mean Corpuscular Volume 86, Mean Corpuscular Hemoglobin 29, Mean Corpuscular Hemoglobin Concent 33, Red Cell Distribution Width 21.6H, Platelet Count 212, Mean Platelet Volume 8.9L, Immature Granulocyte % (Auto) 0, Neutrophils (%) (Auto) 63, Lymphocytes (%) (Auto) 25, Monocytes (%) (Auto) 9, Eosinophils (%) (Auto) 3, Basophils (%) (Auto) 0, Neutrophils # (Auto) 3.7, Lymphocytes # (Auto) 1.5, Monocytes # (Auto) 0.5, Eosinophils # (Auto) 0.2, Basophils # (Auto) 0.0, I mmature Granulocyte # (Auto) 0.0, Sodium Level 138, Potassium Level 1.9*L, Chloride Level 103, Carbon Dioxide Level 25, Anion Gap 10, Blood Urea Nitrogen 5L, Creatinine 0.50L, Estimat Glomerular Filtration Rate 130, BUN/Creatinine Ratio 10, Glucose Level 82, Calcium Level 7.2L, Corrected Calcium 8.6, Magnesium Level 1.5L, Total Bilirubin 0.6, Aspartate Amino Transf (AST/SGOT) 20, Alanine Aminotransferase (ALT/SGPT) 15, Alkaline Phosphatase 125, Total Protein 4.8L, Albumin 2.2L, Phosphorus Level 2.7 05/13/23 14:44: Sodium Level 138, Potassium Level 2.1*L, Chloride Level 105, Carbon Dioxide Level 26, Anion Gap 7, Blood Urea Nitrogen 4L, Creatinine 0.50L, Estimat Glomerular Filtration Rate 130, BUN/Creatinine Ratio 8, Glucose Level 111H, Calcium Level 7.0L Assessment/Plan Assessment/Plan Assessment/Plan b/l lower extremity pain b/l lower extremity swelling b/l lower extremity chronic wounds history of b/l AKA hypokalemia poor compliance with follow up Admitted to ICU. Won't allow me to look at wounds at this time wound care will get u/s b/l lower ext to make sure not dvt no surgical intervention at this time. CHASE GONZALEZ DO May 13, 2023 17:18
[2023-05-13] MEDS: MICONAZOLE 2% POWDER (DESENEX AF) 90 GM TOP SCH (20:19)
[2023-05-13] MEDS: polyethylene glycoL POWDER 17 GM (MIRALAX) PACK PO SCH (21:00)
[2023-05-13] MEDS: SENNA W/DOCUSATE (SENOKOT S) TABLET PO SCH (21:00)
[2023-05-14] MEDS: POTASSIUM CL 10MEQ/50ML IVPB 50 ML IV SCH ×10 (00:33→14:33)
[2023-05-14] MEDS: ceFAZolin INJECTION 2,000 MG in NS (IVPB) 50 ML 50 ML IV SCH ×3 (00:38→18:20)
[2023-05-14] MEDS: NS IV 1000 ML 1,000 ML IV SCH (03:22)
[2023-05-14 04:43] LABS: BASOPHILS % (AUTO) 1 % (0-10); EOSINOPHILS # (AUTO) 0.2 10^3/uL (0.0-0.3); EOSINOPHILS % (AUTO) 5 % (0-10); HEMATOCRIT 35 % (40-54); HEMOGLOBIN 11.2 g/dL (13.3-17.7); LYMPHOCYTES # (AUTO) 1.3 10^3/uL (1.0-4.0); LYMPHOCYTES % (AUTO) 25 % (12-44); MEAN CORPUSCULAR HEMOGLOBIN 29 pg (25-34); MEAN CORPUSCULAR HGB CONC 33 g/dL (32-36); MEAN CORPUSCULAR VOLUME 89 fL (80-99); MEAN PLATELET VOLUME 9.5 fL (9.0-12.2); MONOCYTES # (AUTO) 0.4 10^3/uL (0.0-1.0); MONOCYTES % (AUTO) 7 % (0-12); NEUTROPHILS # (AUTO) 3.2 10^3/uL (1.8-7.8); NEUTROPHILS % (AUTO) 62 % (42-75); PLATELET COUNT 200 10^3/uL (130-400); WHITE BLOOD COUNT 5.1 10^3/uL (4.3-11.0)
[2023-05-14 04:53] LABS: ALBUMIN 2.1 GM/DL (3.2-4.5)
[2023-05-14 04:54] LABS: POTASSIUM 2.7 MMOL/L (3.6-5.0)
[2023-05-14 04:56] LABS: TOTAL PROTEIN 4.6 GM/DL (6.4-8.2)
[2023-05-14 04:58] LABS: BILIRUBIN,TOTAL 0.3 MG/DL (0.1-1.0)
[2023-05-14 04:59] LABS: PHOSPHORUS 1.9 MG/DL (2.3-4.7)
[2023-05-14 05:00] LABS: CREATININE SERUM 0.51 MG/DL (0.60-1.30)
[2023-05-14 05:03] LABS: MAGNESIUM 1.9 MG/DL (1.6-2.4)
[2023-05-14] MEDS: POTASSIUM BICARB 20 MEQ (EFFER-K) TABLET PO SCH (05:10)
[2023-05-14] MEDS: KCL 20 MEQ TAB (K-DUR) PO SCH ×4 (05:10→22:39)
[2023-05-14] MEDS ORDERED: POTASSIUM CL 10MEQ/50ML IVPB 400 ML IV ONE (05:29)
[2023-05-14] MEDS ORDERED: MAGNESIUM 1 GM/100 ML IVPB 200 ML IV ONE (05:29)
[2023-05-14] MEDS: MAGNESIUM 1 GM/100 ML IVPB 100 ML IV SCH (05:31)
[2023-05-14] MEDS ORDERED: KCL 20 MEQ TAB (K-DUR) PO SCH (06:00)
[2023-05-14] MEDS ORDERED: MAGNESIUM 1 GM/100 ML IVPB 100 ML IV SCH (06:00)
[2023-05-14] MEDS ORDERED: POTASSIUM CL 10MEQ/50ML IVPB 50 ML IV SCH (06:00)
[2023-05-14] MEDS: polyethylene glycoL POWDER 17 GM (MIRALAX) PACK PO SCH ×2 (08:54→21:00)
[2023-05-14] MEDS: SENNA W/DOCUSATE (SENOKOT S) TABLET PO SCH ×2 (08:54→21:00)
[2023-05-14] MEDS ORDERED: TROUGH ORDER-PHARMACY XX ONE (09:00)
[2023-05-14] MEDS: MICONAZOLE 2% POWDER (DESENEX AF) 90 GM TOP SCH ×2 (09:15→22:41)
[2023-05-14] MEDS: ENOXAPARIN 40 MG/0.4 ML SYRINGE SC SCH (10:13)
[2023-05-14] MEDS ORDERED: PREGABALIN 75 MG (LYRICA) CAP PO PRN (11:00)
--- NOTE | 2023-05-14 12:28 | Progress Note ---
CRISTIANE CHANEY 05/14/23 1228: Subjective Date Seen by a Provider: May 14, 2023 Time Seen by a Provider: 12:23 Subjective/Events-last exam Patient seen and examined at bedside. Reports he is doing about the same as yesterday. 8/10 pain in bl LE. The pain is worse when his lower extremities are manipulated. Denies any fever/chills overnight. Denies chest pain, shortness of breath, N/V/D, or palpitations. Discussed transfer to the 4th floor to continue his abx and potassium replacement, patient is willing and agreeable. Discussed nicotine patch, patient would like one. Ordered incentive spirometer and encouraged use. Review of Systems General: No Chills, No Night Sweats HEENT: No Head Aches, No Visual Changes Pulmonary: No Dyspnea; Cough Cardiovascular: No: Chest Pain, Palpitations Gastrointestinal: No: Nausea, Vomiting, Abdominal Pain Genitourinary: No Dysuria, No Hematuria Musculoskeletal: leg pain Neurological: No: Weakness, Change in speech, Confusion Focused Exam Lactate Level 05/13/23 00:12: Lactic Acid Level 2.90*H 05/13/23 02:26: Lactic Acid Level 1.82 Objective Exam Last Set of Vital Signs Vital Signs Date Time Temp Pulse Resp B/P (MAP) Pulse Ox O2 Delivery O2 Flow Rate FiO2 05/14/23 12:00 36.0 82 18 111/73 (86) 96 Room Air 05/13/23 19:16 0.00 05/13/23 06:22 28 Capillary Refill : Less Than 3 Seconds I&O Intake and Output 05/13/23 23:59 Intake Total 6800 ml Output Total 2450 ml Balance 4350 ml Intake Oral 2100 ml IV Total 4700 ml Output Urine Total 2450 ml # Bowel Movements 2 Daily Weight Change No General: Alert, Oriented X3, Cooperative HEENT: Atraumatic, EOMI Neck: Supple Lungs: Clear to Auscultation, Normal Air Movement Heart: Regular Rate, Normal S1, Normal S2 Abdomen: Soft, No Tenderness Extremities: No Cyanosis, Other (edema to BL LE, erythema somewhat improved. Wounds present to posterior thigh.) Neuro: Normal Speech Psych/Mental Status: Mental Status NL, Mood NL Results Lab Laboratory Tests 05/13/23 14:44: Sodium Level 138, Potassium Level 2.1*L, Chloride Level 105, Carbon Dioxide Level 26, Anion Gap 7, Blood Urea Nitrogen 4L, Creatinine 0.50L, Estimat Glomerular Filtration Rate 130, BUN/Creatinine Ratio 8, Glucose Level 111H, Calcium Level 7.0L 05/14/23 03:50: Sodium Level 140, Potassium Level 2.7L, Chloride Level 107, Carbon Dioxide Level 23, Anion Gap 10, Blood Urea Nitrogen 3L, Creatinine 0.51L, Estimat Glomerular Filtration Rate 129, BUN/Creatinine Ratio 6, Glucose Level 100, Calcium Level 7. 0L, White Blood Count 5.1, Red Blood Count 3.88L, Hemoglobin 11.2L, Hematocrit 35L, Mean Corpuscular Volume 89, Mean Corpuscular Hemoglobin 29, Mean Corpuscular Hemoglobin Concent 33, Red Cell Distribution Width 22.5H, Platelet Count 200, Mean Platelet Volume 9.5, Immature Granulocyte % (Auto) 0, Neutrophils (%) (Auto) 62, Lymphocytes (%) (Auto) 25, Monocytes (%) (Auto) 7, Eosinophils (%) (Auto) 5, Basophils (%) (Auto) 1, Neutrophils # (Auto) 3.2, Lymphocytes # (Auto) 1.3, Monocytes # (Auto) 0.4, Eosinophils # (Auto) 0.2, Basophils # (Auto) 0.0, Immature Granulocyte # (Auto) 0.0, Corrected Calcium 8.5, Phosphorus Level 1.9L, Magnesium Level 1.9, Total Bilirubin 0.3, Aspartate Amino Transf (AST/SGOT) 17, Alanine Aminotransferase (ALT/SGPT) 12, Alkaline Phosphatase 116, Total Protein 4.6L, Albumin 2.1L 05/14/23 08:50: Vancomycin Level Trough 13.2 Microbiology 05/13/23 MRSA Screen - Final, Complete MRSA not isolated 05/13/23 Urine Culture - Final, Complete NO GROWTH 05/13/23 Gram Stain - Final, Resulted 05/13/23 Wound Culture - Preliminary, Resulted Gram Negative Bacillus 1 05/13/23 Blood Culture - Preliminary, Resulted Staph, Coag Neg ([facility]) Assessment/Plan Assessment/Plan Assess & Plan/Chief Complaint Cellulitis Nonhealing wound Sepsis Lactic acidosis Possible UTI Bilateral wounds present on posterior thigh Afebrile and normal WBC count Sepsis criteria of tachycardia >90, RR>20, source on infection, and lactic acid of 2.9 Lactic acid normalized to 1.8 Continue cefazolin 2gm IV q8hr Continue Vancomycin 1gm BID IV Vanc trough within normal limit Wound culture grew gram negative phi No signs of hemodynamic instability Continue IV fluids UA positive for WBCs and trace bacteria, culture had no growth Blood culture x2 grew coagulase negative staph LE ultrasound revealed no evidence of DVT Pain controlled with tylenol and oxycodone Wound care consulted General surgery consulted- no need for surgical intervention at this time Tele ICU consulted Appreciate recs from consult services Move to 4th floor Hypokalemia 2.1 in ED, fell to 1.9 in spite of replacement initiation Up to 2.7 this morning Continue IV and oral replacement 80meq IV ordered for today 40 meq PO today Monitor K+ level Peripheral vascular disease Bilateral AKA Chronic tobacco abuse encourage smoking cessation needs established with PCP Hx of noncompliance to medication nicotine patch Diet- sodium restricted, 2gm per day DVT ppx- lovenox 40mg SQ daily Code status- full Clinical Quality Measures Admission Status Admission Dx Cellulitis Nonhealing wound Sepsis Lactic acidosis Possible UTI Bilateral wounds present on posterior thigh Afebrile and normal WBC count Sepsis criteria of tachycardia >90, RR>20, source on infection, and lactic acid of 2.9 Continue cefazolin 2gm IV q8hr Continue Vancomycin 1gm BID IV Vanc trough pending Wound culture pending Lactic acid normalized to 1.8 No signs of hemodynamic instability Continue IV fluids UA positive for WBCs and trace bacteria, culture pending Wound care consulted General surgery consulted Tele ICU consulted Appreciate recs from consult services Hypokalemia 2.1 in ED, fell to 1.9 in spite of replacement initiation Continue IV and oral replacement 80meq IV ordered for today 40 meq PO today Monitor K+ level Peripheral vascular disease Bilateral AKA Chronic tobacco abuse encourage smoking cessation needs established with PCP Hx of noncompliance to medication Diet- sodium restricted, 2gm per day DVT ppx- lovenox 40mg SQ daily Code status- full MARYANNE LIND DO 05/14/232133: Supervisory-Addendum Brief Verification & Attestation Participated in pt care: history, MDM, physical Personally performed: exam, history, MDM, supervision of care Care discussed with: Medical Student Procedures: n/a Results interpretation: Verified all documentation Verification and Attestation of Medical Student E/M Service A medical student performed and documented this service in my presence. I rev iewed and verified all information documented by the medical student and made modifications to such information, when appropriate. I personally performed the physical exam and medical decision making. Maryanne Lind, May 14, 2023,21:34 CRISTIANE CHANEY May 14, 2023 12:28 MARYANNE LIND DO May 14, 2023 21:34
[2023-05-14] MEDS: CYCLOBENZAPRINE 10 MG TABLET PO PRN ×2 (14:34→22:39)
[2023-05-14] MEDS: VANCOMYCIN 1 GM/NS 250 ML IVPB IV SCH ×4 (14:35→22:40)
[2023-05-14] MEDS: NICOTINE 21 MG (NICODERM) PATCH TD SCH (14:36)
--- NOTE | 2023-05-14 18:10 | Progress Note - Surgery ---
Subjective Date Seen by a Provider: May 14, 2023 Time Seen by a Provider: 08:14 Subjective/Events-last exam Patient no new complaints except didn't sleep last night. Willing to let me look at wound today. Pain better controlled. Denies n/v fever sweats chills shortness of breath or chest pain. Focused Exam Lactate Level 05/13/23 00:12: Lactic Acid Level 2.90*H 05/13/23 02:26: Lactic Acid Level 1.82 Objective Exam Vital Signs Date Time Temp Pulse Resp B/P (MAP) Pulse Ox O2 Delivery O2 Flow Rate FiO2 05/14/23 14:35 36.0 05/14/23 12:00 36.0 82 18 111/73 (86) 96 Room Air 05/14/23 12:00 100 Room Air 05/14/23 10:42 36.0 05/14/23 10:42 36.4 05/14/23 10:12 36.4 05/14/23 10:12 36.4 05/14/23 10:00 84 22 106/75 (85) 96 Room Air 05/14/23 09:00 75 21 99/63 (75) 97 Room Air 05/14/23 08:00 100 Room Air 05/14/23 08:00 76 12 108/64 (79) 95 Room Air 05/14/23 07:40 36.4 Room Air 05/14/23 07:01 68 05/14/23 07:00 70 17 88/63 (71) 96 Room Air 05/14/23 06:00 80 25 100/61 (79) 98 Room Air 05/14/23 05:39 71 17 94/54 (70) 94 Room Air 05/14/23 05:00 71 18 84/47 (59) 92 Room Air 05/14/23 04:00 84 25 108/68 (81) 93 Room Air 05/14/23 04:00 100 Room Air 05/14/23 03:16 75 19 112/73 (86) 97 Room Air 05/14/23 03:00 74 21 97 Room Air 05/14/23 02:00 70 26 100/68 (79) 97 Room Air 05/14/23 01:00 64 12 102/66 (79) 97 Room Air 05/14/23 01:00 64 05/14/23 00:13 80 21 100/66 (77) 92 Room Air 05/14/23 00:00 72 12 98 Room Air 05/14/23 00:00 100 Room Air 05/13/23 23:00 75 25 103/89 (94) 98 Room Air 05/13/23 22:00 75 21 89/62 (71) 100 Room Air 05/13/23 21:00 73 23 93/57 (69) 98 Room Air 05/13/23 20:00 75 27 98/55 (66) 98 Room Air 05/13/23 20:00 99 Room Air 05/13/23 19:51 36.5 05/13/23 19:16 97 Room Air 0.00 05/13/23 19:00 72 05/13/23 19:00 72 18 95/70 (77) 100 Room Air I & O 05/14/23 07:00 Intake Total 7100 ml Output Total 3825 ml Balance 3275 ml Capillary Refill : Less Than 3 Seconds General Appearance: No Apparent Distress, WD/WN HEENT: PERRL/EOMI, Moist Mucous Membranes Neck: Non Tender, Supple Respiratory: Chest Non Tender, No Accessory Muscle Use, No Respiratory Distress Cardiovascular: Regular Rate, Rhythm, No JVD Gastrointestinal: non tender, soft Extremity: Inflammation, Swelling, Other (bl AKA) Neurologic/Psychiatric: Alert, Oriented x3 Skin: Erythema, Other (ulcerative lesions on posterior thighs) Lymphatic: No Adenopathy Results Lab Laboratory Tests 05/14/23 03:50: White Blood Count 5.1, Red Blood Count 3.88L, Hemoglobin 11.2L, Hematocrit 35L, Mean Corpuscular Volume 89, Mean Corpuscular Hemoglobin 29, Mean Corpuscular Hemoglobin Concent 33, Red Cell Distribution Width 22.5H, Platelet Count 200, Mean Platelet Volume 9.5, Immature Granulocyte % (Auto) 0, Neutrophils (%) (Auto) 62, Lymphocytes (%) (Auto) 25, Monocytes (%) (Auto) 7, Eosinophils (%) (Auto) 5, Basophils (%) (Auto) 1, Neutrophils # (Auto) 3.2, Lymphocytes # (Auto) 1.3, Monocytes # (Auto) 0.4, Eosinophils # (Auto) 0.2, Basophils # (Auto) 0.0, Immature Granulocyte # (Auto) 0.0, Sodium Level 140, Potassium Level 2.7L, Chloride Level 107, Carbon Dioxide Level 23, Anion Gap 10, Blood Urea Nitrogen 3L, Creatinine 0.51L, Estimat Glomerular Filtration Rate 129, BUN/Creatinine Ratio 6, Glucose Level 100, Calcium Level 7.0L, Corrected Calcium 8.5, Phosphorus Level 1.9L, Magnesium Level 1.9, Total Bilirubin 0.3, Aspartate Amino Transf (AST/SGOT) 17, Alanine Aminotransferase (ALT/SGPT) 12, Alkaline Phosphatase 116, Total Protein 4.6L, Albumin 2.1L 05/14/23 08:50: Vancomycin Level Trough 13.2 Microbiology 05/13/23 MRSA Screen - Final, Complete MRSA not isolated 05/13/23 Urine Culture - Final, Complete NO GROWTH 05/13/23 Gram Stain - Final, Resulted 05/13/23 Wound Culture - Preliminary, Resulted Gram Negative Bacillus 1 05/13/23 Blood Culture - Preliminary, Resulted Staph, Coag Neg ([employer]) Assessment/Plan Assessment/Plan Assessment/Plan b/l lower extremity pain b/l lower extremity swelling b/l lower extremity chronic wounds history of b/l AKA hypokalemia poor compliance with follow up wound care No dvt Discussed with patient compliance with treatment, approached him about wound care at skilled nursing for better daily care once discharged, would consider if situation okay and can work. no surgical intervention at this time. CHASE GONZALEZ DO May 14, 2023 18:10
[2023-05-14 20:43] VITALS: BP 106/73
[2023-05-15] VITALS (7 sets, daily range): BP systolic 94–105; BP diastolic 59–71
[2023-05-15] MEDS: ceFAZolin INJECTION 2,000 MG in NS (IVPB) 50 ML 50 ML IV SCH ×3 (02:47→17:35)
[2023-05-15 05:41] LABS: BASOPHILS % (AUTO) 1 % (0-10); EOSINOPHILS # (AUTO) 0.2 10^3/uL (0.0-0.3); EOSINOPHILS % (AUTO) 6 % (0-10); HEMATOCRIT 33 % (40-54); HEMOGLOBIN 10.5 g/dL (13.3-17.7); LYMPHOCYTES # (AUTO) 1.4 10^3/uL (1.0-4.0); LYMPHOCYTES % (AUTO) 33 % (12-44); MEAN CORPUSCULAR HEMOGLOBIN 29 pg (25-34); MEAN CORPUSCULAR HGB CONC 32 g/dL (32-36); MEAN CORPUSCULAR VOLUME 90 fL (80-99); MEAN PLATELET VOLUME 9.5 fL (9.0-12.2); MONOCYTES # (AUTO) 0.3 10^3/uL (0.0-1.0); MONOCYTES % (AUTO) 7 % (0-12); NEUTROPHILS # (AUTO) 2.2 10^3/uL (1.8-7.8); NEUTROPHILS % (AUTO) 53 % (42-75); PLATELET COUNT 188 10^3/uL (130-400); WHITE BLOOD COUNT 4.2 10^3/uL (4.3-11.0)
[2023-05-15 05:53] LABS: ALBUMIN 1.9 GM/DL (3.2-4.5)
[2023-05-15 05:54] LABS: POTASSIUM 2.9 MMOL/L (3.6-5.0)
[2023-05-15 05:56] LABS: TOTAL PROTEIN 4.1 GM/DL (6.4-8.2)
[2023-05-15 05:58] LABS: BILIRUBIN,TOTAL 0.3 MG/DL (0.1-1.0)
[2023-05-15 05:59] LABS: CREATININE SERUM 0.47 MG/DL (0.60-1.30)
[2023-05-15 06:02] LABS: MAGNESIUM 1.8 MG/DL (1.6-2.4)
--- NOTE | 2023-05-15 09:52 | Progress Note ---
SHIVCRISTIANE 05/15/23 0952: Subjective Date Seen by a Provider: May 15, 2023 Time Seen by a Provider: 09:46 Subjective/Events-last exam Patient seen and examined resting comfortably this morning. He reports improvement of his LE pain and is now down to a 5/10. Reports swelling is minimally improved. He talked to general surgery about need for detention to get regular wound care, is open to this idea. He is tolerating his diet without N/V/D. Would like to switch to regular diet instead of sodium restricted. Urine output appropriate. Denies fever/chills overnight. No new complaints. Review of Systems General: No Chills, No Night Sweats HEENT: No Head Aches, No Visual Changes Pulmonary: No Dyspnea, No Cough Cardiovascular: No: Chest Pain, Palpitations Gastrointestinal: No: Nausea, Vomiting, Abdominal Pain Genitourinary: No Dysuria, No Hematuria Musculoskeletal: leg pain Neurological: No: Change in speech, Confusion Focused Exam Lactate Level 05/13/23 00:12: Lactic Acid Level 2.90*H 05/13/23 02:26: Lactic Acid Level 1.82 Objective Exam Last Set of Vital Signs Vital Signs Date Time Temp Pulse Resp B/P (MAP) Pulse Ox O2 Delivery O2 Flow Rate FiO2 05/15/23 07:29 37.1 76 18 104/70 (81) 96 Room Air 05/13/23 19:16 0.00 05/13/23 06:22 28 Capillary Refill : Less Than 3 Seconds I&O Intake and Output 05/15/23 00:00 Intake Total 7200 ml Output Total 2625 ml Balance 4575 ml Intake Oral 3700 ml IV Total 3500 ml Output Urine Total 2625 ml # Bowel Movements 2 General: Alert, Oriented X3 HEENT: Atraumatic, EOMI Neck: Supple Lungs: Clear to Auscultation, Normal Air Movement Heart: Regular Rate, Normal S1, Normal S2 Abdomen: Soft, No Tenderness Extremities: Other (edema and chronic wound on posterior bl thighs) Psych/Mental Status: Mental Status NL, Mood NL Results Lab Laboratory Tests 05/15/23 05:06: White Blood Count 4.2L, Red Blood Count 3.63L, Hemoglobin 10.5L, Hematocrit 33L, Mean Corpuscular Volume 90, Mean Corpuscular Hemoglobin 29, Mean Corpuscular Hemoglobin Concent 32, Red Cell Distribution Width 22.3H, Platelet Count 188, Mean Platelet Volume 9.5, Immature Granulocyte % (Auto) 1, Neutrophils (%) (Auto) 53, Lymphocytes (%) (Auto) 33, Monocytes (%) (Auto) 7, Eosinophils (%) (Auto) 6, Basophils (%) (Auto) 1, Neutrophils # (Auto) 2.2, Lymphocytes # (Auto) 1.4, Monocytes # (Auto) 0.3, Eosinophils # (Auto) 0.2, Basophils # (Auto) 0.0, Immature Granulocyte # (Auto) 0.0, Sodium Level 139, Potassium Level 2.9L, Chloride Level 108H, Carbon Dioxide Level 24, Anion Gap 7, Blood Urea Nitrogen 2 L, Creatinine 0.47L, Estimat Glomerular Filtration Rate 132, BUN/Creatinine Ratio 4, Glucose Level 87, Calcium Level 7.0L, Corrected Calcium 8.7, Magnesium Level 1.8, Total Bilirubin 0.3, Aspartate Amino Transf (AST/SGOT) 14, Alanine Aminotransferase (ALT/SGPT) 8, Alkaline Phosphatase 105, Total Protein 4.1L, Albumin 1.9L Microbiology 05/13/23 MRSA Screen - Final, Complete MRSA not isolated 05/13/23 Urine Culture - Final, Complete NO GROWTH 05/13/23 Gram Stain - Final, Resulted 05/13/23 Wound Culture - Preliminary, Resulted Gram Negative Bacillus 1 05/13/23 Blood Culture - Preliminary, Resulted Staph, Coag Neg (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) Assessment/Plan Assessment/Plan Assess & Plan/Chief Complaint Cellulitis Nonhealing wound Sepsis Bacteremia Lactic acidosis Possible UTI Bilateral wounds present on posterior thigh Afebrile and normal WBC count of 4.2 Sepsis criteria of tachycardia >90, RR>20, source on infection, and lactic acid of 2.9 on admission, improved Lactic acid normalized to 1.8 Continue cefazolin 2gm IV q8hr Continue Vancomycin 1gm BID IV Vanc trough within normal limit Wound culture grew gram negative phi No signs of hemodynamic instability Continue IV fluids UA positive for WBCs and trace bacteria, culture had no growth Blood culture x2 grew coagulase negative staph, sensitivity returned today, resistant to cefazolin but susceptible to vancomycin LE ultrasound revealed no evidence of DVT Pain controlled with tylenol and oxycodone Wound care consulted General surgery consulted- no need for surgical intervention at this time Tele ICU consulted Appreciate recs from consult services Will need social work assistance for placement on discharge where he can receive regular wound care Hypokalemia 2.1 in ED, fell to 1.9 in spite of replacement initiation Up to 2.9 this morning Continue oral replacement Monitor K+ level Peripheral vascular disease Bilateral AKA Chronic tobacco abuse encourage smoking cessation needs established with PCP Hx of noncompliance to medication nicotine patch Diet- sodium restricted, 2gm per day DVT ppx- lovenox 40mg SQ daily Code status- full Clinical Quality Measures Admission Status Admission Dx Cellulitis Nonhealing wound Sepsis Lactic acidosis Possible UTI Bilateral wounds present on posterior thigh Afebrile and normal WBC count Sepsis criteria of tachycardia >90, RR>20, source on infection, and lactic acid of 2.9 Continue cefazolin 2gm IV q8hr Continue Vancomycin 1gm BID IV Vanc trough pending Wound culture pending Lactic acid normalized to 1.8 No signs of hemodynamic instability Continue IV fluids UA positive for WBCs and trace bacteria, culture pending Wound care consulted General surgery consulted Tele ICU consulted Appreciate recs from consult services Hypokalemia 2.1 in ED, fell to 1.9 in spite of replacement initiation Continue IV and oral replacement 80meq IV ordered for today 40 meq PO today Monitor K+ level Peripheral vascular disease Bilateral AKA Chronic tobacco abuse encourage smoking cessation needs established with PCP Hx of noncompliance to medication Diet- sodium restricted, 2gm per day DVT ppx- lovenox 40mg SQ daily Code status- full MARYANNE LIND DO 05/15/232051: Supervisory-Addendum Brief Verification & Attestation Participated in pt care: history, MDM, physical Personally performed: exam, history, MDM, supervision of care Care discussed with: Medical Student Procedures: n/a Results interpretation: Verified all documentation Verification and Attestation of Medical Student E/M Service A medical student performed and documented this service in my presence. I reviewed and verified all information documented by the medical student and made modifications to such information, when appropriate. I personally performed the physical exam and medical decision making. Maryanne Lind May 15, 2023,20:52 CRISTIANE CHANEY May 15, 2023 09:52 MARYANNE LIND DO May 15, 2023 20:52
[2023-05-15] MEDS: NICOTINE 21 MG (NICODERM) PATCH TD SCH (09:53)
[2023-05-15] MEDS: KCL 20 MEQ TAB (K-DUR) PO SCH (09:53)
[2023-05-15] MEDS: ENOXAPARIN 40 MG/0.4 ML SYRINGE SC SCH (09:54)
[2023-05-15] MEDS: MICONAZOLE 2% POWDER (DESENEX AF) 90 GM TOP SCH ×2 (09:54→20:22)
[2023-05-15] MEDS: PATCH REMOVAL TP SCH (09:55)
[2023-05-15] MEDS: SENNA W/DOCUSATE (SENOKOT S) TABLET PO SCH ×2 (10:09→20:22)
[2023-05-15] MEDS: polyethylene glycoL POWDER 17 GM (MIRALAX) PACK PO SCH ×2 (10:09→20:22)
[2023-05-15] MEDS: VANCOMYCIN 1 GM/NS 250 ML IVPB IV SCH ×4 (10:30→21:42)
[2023-05-15] MEDS: POTASSIUM BICARB 20 MEQ (EFFER-K) TABLET PO SCH ×2 (13:45→20:22)
[2023-05-16] MEDS: ceFAZolin INJECTION 2,000 MG in NS (IVPB) 50 ML 50 ML IV SCH (01:08)
[2023-05-16 04:02] VITALS: BP 102/56
[2023-05-16 06:13] LABS: BASOPHILS % (AUTO) 1 % (0-10); EOSINOPHILS # (AUTO) 0.2 10^3/uL (0.0-0.3); EOSINOPHILS % (AUTO) 5 % (0-10); HEMATOCRIT 34 % (40-54); LYMPHOCYTES # (AUTO) 1.4 10^3/uL (1.0-4.0); LYMPHOCYTES % (AUTO) 33 % (12-44); MEAN CORPUSCULAR HEMOGLOBIN 29 pg (25-34); MEAN CORPUSCULAR HGB CONC 32 g/dL (32-36); MEAN CORPUSCULAR VOLUME 90 fL (80-99); MEAN PLATELET VOLUME 9.2 fL (9.0-12.2); MONOCYTES # (AUTO) 0.3 10^3/uL (0.0-1.0); MONOCYTES % (AUTO) 7 % (0-12); NEUTROPHILS # (AUTO) 2.2 10^3/uL (1.8-7.8); NEUTROPHILS % (AUTO) 54 % (42-75); PLATELET COUNT 194 10^3/uL (130-400); WHITE BLOOD COUNT 4.2 10^3/uL (4.3-11.0)
[2023-05-16 06:36] LABS: POTASSIUM 2.8 MMOL/L (3.6-5.0)
[2023-05-16 06:37] LABS: CALCIUM 7.2 MG/DL (8.5-10.1)
[2023-05-16 06:38] LABS: TOTAL PROTEIN 4.5 GM/DL (6.4-8.2)
[2023-05-16 06:40] LABS: BILIRUBIN,TOTAL 0.3 MG/DL (0.1-1.0)
[2023-05-16 06:42] LABS: CREATININE SERUM 0.45 MG/DL (0.60-1.30)
[2023-05-16 06:45] LABS: MAGNESIUM 1.7 MG/DL (1.6-2.4)
[2023-05-16 07:21] VITALS: BP 91/58
[2023-05-16] MEDS: POTASSIUM BICARB 20 MEQ (EFFER-K) TABLET PO SCH ×3 (09:24→21:14)
[2023-05-16] MEDS: ENOXAPARIN 40 MG/0.4 ML SYRINGE SC SCH (09:24)
[2023-05-16] MEDS: VANCOMYCIN 1 GM/NS 250 ML IVPB IV SCH ×4 (09:25→23:15)
[2023-05-16] MEDS: NICOTINE 21 MG (NICODERM) PATCH TD SCH (09:25)
[2023-05-16] MEDS: MICONAZOLE 2% POWDER (DESENEX AF) 90 GM TOP SCH ×2 (09:26→21:15)
[2023-05-16] MEDS: SENNA W/DOCUSATE (SENOKOT S) TABLET PO SCH ×2 (09:26→21:15)
[2023-05-16] MEDS: polyethylene glycoL POWDER 17 GM (MIRALAX) PACK PO SCH ×2 (09:26→21:15)
[2023-05-16] MEDS: PATCH REMOVAL TP SCH (09:26)
--- NOTE | 2023-05-16 10:10 | Progress Note ---
CRISTIANE CHANEY 05/16/23 1010: Subjective Date Seen by a Provider: May 16, 2023 Time Seen by a Provider: 10:03 Subjective/Events-last exam Patient seen and examined at bedside. Feeling about the same as yesterday. Edema to BL LE consistent with yesterday's exam. Reports 4/10 pain at rest to the area of chronic wound on posterior thigh. Wound care has been seeing him and dressing wounds. Tolerating regular diet without issue. No N/V/D or abdominal pain. No shortness of breath or chest pain. Did not get approved through [employer] [facility]. Pending approval with [employer] [facility]. Patient also looking into hiring private caregiver to assist in treating wounds. Review of Systems General: No Chills, No Night Sweats HEENT: No Head Aches, No Visual Changes Pulmonary: No Dyspnea, No Cough Cardiovascular: No: Chest Pain, Palpitations Gastrointestinal: No: Nausea, Vomiting, Abdominal Pain Genitourinary: No Dysuria, No Hematuria Musculoskeletal: leg pain Neurological: No: Change in speech, Confusion Objective Exam Last Set of Vital Signs Vital Signs Date Time Temp Pulse Resp B/P (MAP) Pulse Ox O2 Delivery O2 Flow Rate FiO2 05/16/23 07:21 36.5 64 18 91/58 (69) 96 Room Air 05/16/23 07:02 0.00 05/13/23 06:22 28 Capillary Refill : Less Than 3 Seconds I&O Intake and Output 05/15/23 23:59 Intake Total 2260 ml Output Total 2075 ml Balance 185 ml Intake Oral 1760 ml IV Total 500 ml Output Urine Total 2075 ml # Bowel Movements 1 General: Alert, Oriented X3, Cooperative, No Acute Distress HEENT: Atraumatic, EOMI Neck: Supple, No JVD Lungs: Clear to Auscultation, Normal Air Movement Heart: Regular Rate, Normal S1, Normal S2 Abdomen: Soft, No Tenderness Extremities: Other (edema at bl AKA site) Skin: Other (Chronic wound present on posterior thighs) Neuro: Normal Speech Psych/Mental Status: Mental Status NL, Mood NL Results Lab Laboratory Tests 05/16/23 05:44: White Blood Count 4.2L, Red Blood Count 3.81L, Hemoglobin 11.0L, Hematocrit 34L, Mean Corpuscular Volume 90, Mean Corpuscular Hemoglobin 29, Mean Corpuscular Hemoglobin Concent 32, Red Cell Distribution Width 22.5H, Platelet Count 194, Mean Platelet Volume 9.2, Immature Granulocyte % (Auto) 0, Neutrophils (%) (Auto) 54, Lymphocytes (%) (Auto) 33, Monocytes (%) (Auto) 7, Eosinophils (%) (Auto) 5, Basophils (%) (Auto) 1, Neutrophils # (Auto) 2.2, Lymphocytes # (Auto) 1.4, Monocytes # (Auto) 0.3, Eosinophils # (Auto) 0.2, Basophils # (Auto) 0.0, Immature Granulocyte # (Auto) 0.0, Sodium Level 139, Potassium Level 2.8L, Chloride Level 105, Carbon Dioxide Level 28, Anion Gap 6, Blood Urea Nitrogen 2L , Creatinine 0.45L, Estimat Glomerular Filtration Rate 134, BUN/Creatinine Ratio 4, Glucose Level 86, Calcium Level 7.2L, Corrected Calcium 8.8, Magnesium Level 1.7, Total Bilirubin 0.3, Aspartate Amino Transf (AST/SGOT) 16, Alanine Aminotransferase (ALT/SGPT) 8, Alkaline Phosphatase 106, Total Protein 4.5L, Albumin 2.0L Microbiology 05/13/23 MRSA Screen - Final, Complete MRSA not isolated 05/13/23 Urine Culture - Final, Complete NO GROWTH 05/13/23 Gram Stain - Final, Resulted 05/13/23 Wound Culture - Preliminary, Resulted Pseudomonas aeruginosa Mixed Bacterial Aleta Culture In Progress 05/13/23 Blood Culture - Preliminary, Resulted Staph, Coag Neg (BRICK SHADER) Assessment/Plan Assessment/Plan Assess & Plan/Chief Complaint Cellulitis Nonhealing wound Sepsis Bacteremia Lactic acidosis Possible UTI Bilateral wounds present on posterior thigh, wound care following Afebrile and normal WBC count of 4.2 Sepsis criteria of tachycardia >90, RR>20, source on infection, and lactic acid of 2.9 on admission, improved Lactic acid normalized to 1.8 Continue Vancomycin 1gm BID IV Vanc trough within normal limit Cefazolin DC due to sensitivity showing resistance and lack of pseudomonas coverage Start Levofloxacin 750mg PO daily Wound culture grew psuedomonas No signs of hemodynamic instability IV fluids stopped due to good PO intake and good urine output UA positive for WBCs and trace bacteria, culture had no growth Blood culture x2 grew coagulase negative staph, sensitivity returned susceptible to vancomycin LE ultrasound revealed no evidence of DVT Pain controlled with tylenol and oxycodone Wound care consulted General surgery consulted- no need for surgical intervention at this time Appreciate recs from consult services Will need social work assistance for placement on discharge where he can receive regular wound care Hypokalemia 2.1 in ED, fell to 1.9 in spite of replacement initiation Up to 2.8 this morning Continue oral replacement, 20meq TID Monitor K+ level Mid line ordered and will resume IV replacement as well Peripheral vascular disease Bilateral AKA Chronic tobacco abuse encourage smoking cessation needs established with PCP Hx of noncompliance to medication nicotine patch Diet- regular DVT ppx- lovenox 40mg SQ daily Code status- full Dispo- director of women's services are working on discharge planning. Has been denied from [place] at home. dough pending. Patient given private event manager list and is planning to use this in combination with home health. Clinical Quality Measures Admission Status Admission Dx Cellulitis Nonhealing wound Sepsis Lactic acidosis Possible UTI Bilateral wounds present on posterior thigh Afebrile and normal WBC count Sepsis criteria of tachycardia >90, RR>20, source on infection, and lactic acid of 2.9 Continue cefazolin 2gm IV q8hr Continue Vancomycin 1gm BID IV Vanc trough pending Wound culture pending Lactic acid normalized to 1.8 No signs of hemodynamic instability Continue IV fluids UA positive for WBCs and trace bacteria, culture pending Wound care consulted General surgery consulted Tele ICU consulted Appreciate recs from consult services Hypokalemia 2.1 in ED, fell to 1.9 in spite of replacement initiation Continue IV and oral replacement 80meq IV ordered for today 40 meq PO today Monitor K+ level Peripheral vascular disease Bilateral AKA Chronic tobacco abuse encourage smoking cessation needs established with PCP Hx of noncompliance to medication Diet- sodium restricted, 2gm per day DVT ppx- lovenox 40mg SQ daily Code status- full MARYANNE LIND DO 05/16/232047: Supervisory-Addendum Brief Verification & Attestation Participated in pt care: history, MDM, physical Personally performed: exam, history, MDM, supervision of care Care discussed with: Medical Student Procedures: n/a Results interpretation: Verified all documentation Verification and Attestation of Medical Student E/M Service A medical student performed and documented this service in my presence. I reviewed and verified all information documented by the medical student and made modifications to such information, when appropriate. I personally performed the physical exam and medical decision making. Maryanne Lind, May 16, 2023,20:48 CRISTIANE CHANEY May 16, 2023 10:10 MARYANNE LIND DO May 16, 2023 20:48
[2023-05-16 11:30] VITALS: BP 101/69
[2023-05-16] MEDS ORDERED: POTASSIUM CL 10MEQ/50ML IVPB 50 ML IV SCH (11:45)
[2023-05-16] MEDS ORDERED: NS IV 500 ML 500 ML ONE (12:05)
[2023-05-16] MEDS ORDERED: NS 100 ML (IVPB) BAG IV SCH (12:30)
[2023-05-16] MEDS ORDERED: NS IV 500 ML 500 ML IV SCH (12:45)
[2023-05-16 14:59] VITALS: BP 101/69
[2023-05-16 15:44] VITALS: BP 105/70
[2023-05-16] MEDS: POTASSIUM CL 10MEQ/50ML IVPB 50 ML IV SCH ×6 (17:09→23:18)
[2023-05-16 19:38] VITALS: BP 110/75
--- NOTE | 2023-05-16 21:30 | Progress Note - Surgery ---
Subjective Date Seen by a Provider: May 16, 2023 Time Seen by a Provider: 16:00 Subjective/Events-last exam Patient no new complaints. Laying in bed. Okay with having dressing changes but nurses reports refusing previously. Patient reports at home has accidents of stool and urine and has to sit in for extended periods of time. Not getting adequate care at home. Denies n/v fever sweats chills shortness of breath or chest pain. Objective Exam Vital Signs Date Time Temp Pulse Resp B/P (MAP) Pulse Ox O2 Delivery O2 Flow Rate FiO2 05/16/23 19:38 36.6 76 18 110/75 (87) 98 Room Air 05/16/23 15:44 36.8 74 18 105/70 (82) 97 Room Air 05/16/23 14:59 36.3 69 97 05/16/23 11:30 36.3 69 17 101/69 (80) 97 Room Air 05/16/23 09:00 Room Air 05/16/23 07:21 36.5 64 18 91/58 (69) 96 Room Air 05/16/23 07:02 95 Room Air 0.00 05/16/23 04:02 37.1 82 18 102/56 (71) 95 Room Air 05/15/23 23:31 36.2 71 18 99/62 (74) 97 Room Air I & O 05/16/23 07:00 Intake Total 3990 ml Output Total 3600 ml Balance 390 ml Capillary Refill : Less Than 3 Seconds General Appearance: No Apparent Distress, WD/WN HEENT: PERRL/EOMI, Moist Mucous Membranes Neck: Non Tender, Supple Respiratory: Chest Non Tender, No Accessory Muscle Use, No Respiratory Distress Cardiovascular: Regular Rate, Rhythm, No JVD Gastrointestinal: non tender, soft Extremity: Inflammation, Swelling, Other (bl AKA) Neurologic/Psychiatric: Alert, Oriented x3 Skin: Erythema, Other (ulcerative lesions on posterior thighs) Lymphatic: No Adenopathy Results Lab Laboratory Tests 05/16/23 05:44: White Blood Count 4.2L, Red Blood Count 3.81L, Hemoglobin 11.0L, Hematocrit 34L, Mean Corpuscular Volume 90, Mean Corpuscular Hemoglobin 29, Mean Corpuscular Hemoglobin Concent 32, Red Cell Distribution Width 22.5H, Platelet Count 194, Mean Platelet Volume 9.2, Immature Granulocyte % (Auto) 0, Neutrophils (%) (Auto) 54, Lymphocytes (%) (Auto) 33, Monocytes (%) (Auto) 7, Eosinophils (%) (Auto) 5, Basophils (%) (Auto) 1, Neutrophils # (Auto) 2.2, Lymphocytes # (Auto) 1.4, Monocytes # (Auto) 0.3, Eosinophils # (Auto) 0.2, Basophils # (Auto) 0.0, Immature Granulocyte # (Auto) 0.0, Sodium Level 139, Potassium Level 2.8L, Chloride Level 105, Carbon Dioxide Level 28, Anion Gap 6, Blood Urea Nitrogen 2L , Creatinine 0.45L, Estimat Glomerular Filtration Rate 134, BUN/Creatinine Ratio 4, Glucose Level 86, Calcium Level 7.2L, Corrected Calcium 8.8, Magnesium Level 1.7, Total Bilirubin 0.3, Aspartate Amino Transf (AST/SGOT) 16, Alanine Aminotransferase (ALT/SGPT) 8, Alkaline Phosphatase 106, Total Protein 4.5L, Albumin 2.0L Microbiology 05/13/23 MRSA Screen - Final, Complete MRSA not isolated 05/13/23 Urine Culture - Final, Complete NO GROWTH 05/13/23 Gram Stain - Final, Resulted 05/13/23 Wound Culture - Preliminary, Resulted Pseudomonas aeruginosa Mixed Bacterial Aleta 05/13/23 Blood Culture - Preliminary, Resulted Staph, Coag Neg (MAIL READER) Assessment/Plan Assessment/Plan Assessment/Plan b/l lower extremity pain b/l lower extremity swelling b/l lower extremity chronic wounds history of b/l AKA hypokalemia poor compliance with follow up Paitent discussed care needs which he is not able to have at home. He is acceptable to possible LTAC for longer-term care. Discussed with social work which will work on options. Patient with multiple admission for same care needs and with noncompliance at home this cycle will continue. Continue wound care. No surgical intervention at this time. CHASE GONZALEZ DO May 16, 2023 21:30
[2023-05-16] MEDS: CEFEPIME 2,000 MG/NS 50 ML IVPB IV SCH ×2 (23:15)
[2023-05-17] VITALS (7 sets, daily range): BP systolic 105–122; BP diastolic 69–80
[2023-05-17 05:04] LABS: BASOPHILS % (AUTO) 1 % (0-10); EOSINOPHILS # (AUTO) 0.2 10^3/uL (0.0-0.3); EOSINOPHILS % (AUTO) 5 % (0-10); HEMATOCRIT 34 % (40-54); HEMOGLOBIN 10.8 g/dL (13.3-17.7); LYMPHOCYTES # (AUTO) 1.3 10^3/uL (1.0-4.0); LYMPHOCYTES % (AUTO) 35 % (12-44); MEAN CORPUSCULAR HEMOGLOBIN 29 pg (25-34); MEAN CORPUSCULAR HGB CONC 32 g/dL (32-36); MEAN CORPUSCULAR VOLUME 90 fL (80-99); MONOCYTES # (AUTO) 0.3 10^3/uL (0.0-1.0); MONOCYTES % (AUTO) 8 % (0-12); NEUTROPHILS # (AUTO) 1.9 10^3/uL (1.8-7.8); NEUTROPHILS % (AUTO) 51 % (42-75); PLATELET COUNT 187 10^3/uL (130-400); WHITE BLOOD COUNT 3.7 10^3/uL (4.3-11.0)
[2023-05-17 05:15] LABS: ALBUMIN 1.9 GM/DL (3.2-4.5); BILIRUBIN,TOTAL 0.2 MG/DL (0.1-1.0); CALCIUM 7.3 MG/DL (8.5-10.1); CREATININE SERUM 0.51 MG/DL (0.60-1.30); MAGNESIUM 1.5 MG/DL (1.6-2.4); POTASSIUM 3.8 MMOL/L (3.6-5.0); TOTAL PROTEIN 4.6 GM/DL (6.4-8.2)
--- NOTE | 2023-05-17 06:27 | Progress Note ---
Subjective Date Seen by a Provider: May 17, 2023 Time Seen by a Provider: 11:00 Subjective/Events-last exam Doing well Left abdominal "bloating" so will check and xrays and consult Dr Fernandez Review of Systems General: Fatigue Gastrointestinal: Abdominal Pain Objective Exam Last Set of Vital Signs Vital Signs Date Time Temp Pulse Resp B/P (MAP) Pulse Ox O2 Delivery O2 Flow Rate FiO2 05/17/23 04:00 36.5 75 18 122/80 (94) 98 Room Air 05/16/23 07:02 0.00 05/13/23 06:22 28 Capillary Refill : Less Than 3 Seconds I&O Intake and Output 05/17/23 00:00 Intake Total 4170 ml Output Total 3920 ml Balance 250 ml Intake Oral 3170 ml IV Total 1000 ml Output Urine Total 3920 ml # Bowel Movements 2 General: Alert, Oriented X3, Cooperative, No Acute Distress Lungs: Clear to Auscultation, Normal Air Movement Heart: Regular Rate, Normal S1, Normal S2, No Murmurs Results Lab Laboratory Tests 05/17/23 04:48: White Blood Count 3.7L, Red Blood Count 3.74L, Hemoglobin 10.8L, Hematocrit 34L, Mean Corpuscular Volume 90, Mean Corpuscular Hemoglobin 29, Mean Corpuscular Hemoglobin Concent 32, Red Cell Distribution Width 22.8H, Platelet Count 187, Mean Platelet Volume 9.0, Immature Granulocyte % (Auto) 1, Neutrophils (%) (Auto) 51, Lymphocytes (%) (Auto) 35, Monocytes (%) (Auto) 8, Eosinophils (%) (Auto) 5, Basophils (%) (Auto) 1, Neutrophils # (Auto) 1.9, Lymphocytes # (Auto) 1.3, Monocytes # (Auto) 0.3, Eosinophils # (Auto) 0.2, Basophils # (Auto) 0.0, Immature Granulocyte # (Auto) 0.0, Sodium Level 139, Potassium Level 3.8, Chloride Level 106, Carbon Dioxide Level 28, Anion Gap 5, Blood Urea Nitrogen 3L , Creatinine 0.51L, Estimat Glomerular Filtration Rate 129, BUN/Creatinine Ratio 6, Glucose Level 100, Calcium Level 7.3L, Corrected Calcium 9.0, Magnesium Level 1.5L, Total Bilirubin 0.2, Aspartate Amino Transf (AST/SGOT) 14, Alanine Aminotransferase (ALT/SGPT) 7, Alkaline Phosphatase 102, Total Protein 4.6L, Albumin 1.9L Microbiology 05/13/23 MRSA Screen - Final, Complete MRSA not isolated 05/13/23 Urine Culture - Final, Complete NO GROWTH 05/13/23 Gram Stain - Final, Resulted 05/13/23 Wound Culture - Preliminary, Resulted Pseudomonas aeruginosa Mixed Bacterial Aleta 05/13/23 Blood Culture - Preliminary, Resulted Staph, Coag Neg (CRTT) Assessment/Plan Assessment/Plan Assess & Plan/Chief Complaint Assessment: Bilateral cellulitis thighs Plan: Abd xrays Dr Fernandez consult ATIF LIND DO May 17, 2023 06:27
[2023-05-17] MEDS: NICOTINE 21 MG (NICODERM) PATCH TD SCH (09:27)
[2023-05-17] MEDS: ENOXAPARIN 40 MG/0.4 ML SYRINGE SC SCH (09:29)
[2023-05-17] MEDS: CEFEPIME 2,000 MG/NS 50 ML IVPB IV SCH ×4 (09:29→20:15)
[2023-05-17] MEDS: POTASSIUM BICARB 20 MEQ (EFFER-K) TABLET PO SCH ×3 (09:32→20:15)
[2023-05-17] MEDS: PATCH REMOVAL TP SCH (09:32)
[2023-05-17] MEDS: polyethylene glycoL POWDER 17 GM (MIRALAX) PACK PO SCH ×2 (09:33→19:27)
[2023-05-17] MEDS: SENNA W/DOCUSATE (SENOKOT S) TABLET PO SCH ×2 (09:33→19:28)
[2023-05-17] MEDS: MICONAZOLE 2% POWDER (DESENEX AF) 90 GM TOP SCH ×2 (09:34→20:15)
[2023-05-17] MEDS: VANCOMYCIN 1 GM/NS 250 ML IVPB IV SCH ×4 (10:10→22:19)
--- NOTE | 2023-05-17 12:50 | Diagnostic Imaging Report ---
EXAM: ACUTE ABD SERIES. INDICATION: Left-sided abdominal pain. COMPARISON: CT abdomen and pelvis 05/05/2022. Chest radiograph 05/13/2023. FINDINGS: Diffuse gaseous distention of the colon. Nonspecific small bowel gas pattern. Contrast in the urinary bladder. Elevation of the left hemidiaphragm. Left basilar atelectasis. No free intraperitoneal air. Normal heart size and central pulmonary vascularity. Mild prominence of the interstitium. No pneumothorax. Small right pleural effusion. IMPRESSION: 1. Diffuse gaseous distention of the colon. Nonspecific small bowel gas pattern. 2. Stable prominence of the interstitium. Mild bibasilar atelectasis or infiltrate and small right pleural effusion. Dictated by: Dictated on workstation # [id number]
--- NOTE | 2023-05-17 13:40 | Progress Note - Surgery ---
Subjective Date Seen by a Provider: May 17, 2023 Time Seen by a Provider: 13:35 Subjective/Events-last exam Left sided abdominal swelling. Minimal discomfort. No other complaints. Still will ing to do LTAC if accepted. Denies n/v fever sweats chills shortness of breath or chest pain. Objective Exam Vital Signs Date Time Temp Pulse Resp B/P (MAP) Pulse Ox O2 Delivery O2 Flow Rate FiO2 05/17/23 11:30 36.7 74 18 111/76 (88) 98 Room Air 05/17/23 09:20 Room Air 05/17/23 07:40 37.2 76 18 109/73 (85) 95 Room Air 05/17/23 04:00 36.5 75 18 122/80 (94) 98 Room Air 05/17/23 00:18 36.2 77 18 109/69 (82) 97 Room Air 05/16/23 21:00 100 Room Air 05/16/23 19:38 36.6 76 18 110/75 (87) 98 Room Air 05/16/23 15:44 36.8 74 18 105/70 (82) 97 Room Air 05/16/23 14:59 36.3 69 97 I & O 05/17/23 07:00 Intake Total 3140 ml Output Total 3320 ml Balance -180 ml Capillary Refill : Less Than 3 Seconds General Appearance: No Apparent Distress, WD/WN HEENT: PERRL/EOMI, Moist Mucous Membranes Neck: Non Tender, Supple Respiratory: Chest Non Tender, No Accessory Muscle Use, No Respiratory Distress Cardiovascular: Regular Rate, Rhythm, No JVD Gastrointestinal: non tender, soft, other (left lower abdomen swelling) Extremity: Inflammation, Swelling, Other (bl AKA) Neurologic/Psychiatric: Alert, Oriented x3 Skin: Erythema, Other (ulcerative lesions on posterior thighs) Lymphatic: No Adenopathy Results Lab Laboratory Tests 05/17/23 04:48: White Blood Count 3.7L, Red Blood Count 3.74L, Hemoglobin 10.8L, Hematocrit 34L, Mean Corpuscular Volume 90, Mean Corpuscular Hemoglobin 29, Mean Corpuscular Hemoglobin Concent 32, Red Cell Distribution Width 22.8H, Platelet Count 187, Mean Platelet Volume 9.0, Immature Granulocyte % (Auto) 1, Neutrophils (%) ( Auto) 51, Lymphocytes (%) (Auto) 35, Monocytes (%) (Auto) 8, Eosinophils (%) (Auto) 5, Basophils (%) (Auto) 1, Neutrophils # (Auto) 1.9, Lymphocytes # (Auto) 1.3, Monocytes # (Auto) 0.3, Eosinophils # (Auto) 0.2, Basophils # (Auto) 0.0, Immature Granulocyte # (Auto) 0.0, Sodium Level 139, Potassium Level 3.8, Chloride Level 106, Carbon Dioxide Level 28, Anion Gap 5, Blood Urea Nitrogen 3L , Creatinine 0.51L, Estimat Glomerular Filtration Rate 129, BUN/Creatinine Ratio 6, Glucose Level 100, Calcium Level 7.3L, Corrected Calcium 9.0, Magnesium Level 1.5L, Total Bilirubin 0.2, Aspartate Amino Transf (AST/SGOT) 14, Alanine Aminotransferase (ALT/SGPT) 7, Alkaline Phosphatase 102, Total Protein 4.6L, Albumin 1.9L Microbiology 05/13/23 MRSA Screen - Final, Complete MRSA not isolated 05/13/23 Urine Culture - Final, Complete NO GROWTH 05/13/23 Gram Stain - Final, Complete 05/13/23 Wound Culture - Final, Complete Pseudomonas aeruginosa Mixed Bacterial Aleta 05/13/23 Blood Culture - Preliminary, Resulted Staph, Coag Neg (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 He is still ok with going to possible LTAC for longer-term care. Social work which will work on options. Patient with multiple admission for same care needs and with noncompliance at home this cycle will continue. Continue wound care. No surgical intervention at this time. Abdominal x ray: with colonic distention but having bowel function CHASE GONZALEZ DO May 17, 2023 13:40
[2023-05-18 04:00] VITALS: BP 116/78
[2023-05-18 06:04] LABS: BASOPHILS % (AUTO) 1 % (0-10); EOSINOPHILS # (AUTO) 0.2 10^3/uL (0.0-0.3); EOSINOPHILS % (AUTO) 6 % (0-10); HEMATOCRIT 34 % (40-54); LYMPHOCYTES # (AUTO) 1.3 10^3/uL (1.0-4.0); LYMPHOCYTES % (AUTO) 38 % (12-44); MEAN CORPUSCULAR HEMOGLOBIN 29 pg (25-34); MEAN CORPUSCULAR HGB CONC 32 g/dL (32-36); MEAN CORPUSCULAR VOLUME 91 fL (80-99); MEAN PLATELET VOLUME 9.2 fL (9.0-12.2); MONOCYTES # (AUTO) 0.3 10^3/uL (0.0-1.0); MONOCYTES % (AUTO) 8 % (0-12); NEUTROPHILS # (AUTO) 1.7 10^3/uL (1.8-7.8); NEUTROPHILS % (AUTO) 47 % (42-75); PLATELET COUNT 190 10^3/uL (130-400); WHITE BLOOD COUNT 3.5 10^3/uL (4.3-11.0)
[2023-05-18 06:17] LABS: ALBUMIN 1.9 GM/DL (3.2-4.5); CHLORIDE 109 MMOL/L (98-107); SODIUM 141 MMOL/L (135-145)
[2023-05-18 06:18] LABS: CALCIUM 7.3 MG/DL (8.5-10.1)
[2023-05-18 06:19] LABS: GLUCOSE 94 MG/DL (70-105); TOTAL PROTEIN 4.4 GM/DL (6.4-8.2)
[2023-05-18 06:20] LABS: CARBON DIOXIDE 24 MMOL/L (21-32)
[2023-05-18 06:21] LABS: BILIRUBIN,TOTAL 0.2 MG/DL (0.1-1.0)
[2023-05-18 06:22] LABS: ALKALINE PHOSPHATASE 94 U/L (40-136)
[2023-05-18 06:23] LABS: CREATININE SERUM 0.48 MG/DL (0.60-1.30); GFR ESTIMATED 131
[2023-05-18 06:24] LABS: BUN/CREATININE RATIO 8
[2023-05-18 06:25] LABS: MAGNESIUM 1.7 MG/DL (1.6-2.4)
[2023-05-18 06:26] LABS: ALANINE AMINOTRANSFERASE < 6 U/L (0-55)
[2023-05-18 07:32] VITALS: BP 122/83
--- NOTE | 2023-05-18 07:44 | Progress Note ---
Subjective Date Seen by a Provider: May 18, 2023 Time Seen by a Provider: 11:00 Subjective/Events-last exam Sleeps most of time No falls No change in pain Labs reviewed Review of Systems General: [place]aise Objective Exam Last Set of Vital Signs Vital Signs Date Time Temp Pulse Resp B/P (MAP) Pulse Ox O2 Delivery O2 Flow Rate FiO2 05/18/23 07:32 37.0 75 18 122/83 (96) 96 Room Air 05/18/23 04:00 0.00 0.00 05/13/23 06:22 28 Capillary Refill : Less Than 3 Seconds I&O Intake and Output 05/18/23 00:00 Intake Total 3640 ml Output Total 4250 ml Balance -610 ml Intake Oral 3440 ml IV Total 200 ml Output Urine Total 4250 ml # Bowel Movements 1 General: Alert, Oriented X3, Cooperative, No Acute Distress Lungs: Clear to Auscultation, Normal Air Movement Heart: Regular Rate, Normal S1, Normal S2, No Murmurs Psych/Mental Status: Mental Status NL, Mood NL Results Lab Laboratory Tests 05/18/23 05:59: White Blood Count 3.5L, Red Blood Count 3.75L, Hemoglobin 11.0L, Hematocrit 34L, Mean Corpuscular Volume 91, Mean Corpuscular Hemoglobin 29, Mean Corpuscular Hemoglobin Concent 32, Red Cell Distribution Width 22.6H, Platelet Count 190, Mean Platelet Volume 9.2, Immature Granulocyte % (Auto) 0, Neutrophils (%) (Auto) 47, Lymphocytes (%) (Auto) 38, Monocytes (%) (Auto) 8, Eosinophils (%) (Auto) 6, Basophils (%) (Auto) 1, Neutrophils # (Auto) 1.7L, Lymphocytes # (Auto) 1.3, Monocytes # (Auto) 0.3, Eosinophils # (Auto) 0.2, Basophils # (Auto) 0.0, Immature Granulocyte # (Auto) 0.0, Sodium Level 141, Potassium Level 4.0, Chloride Level 109H, Carbon Dioxide Level 24, Anion Gap 8, Blood Urea Nitrogen 4L, Creatinine 0.48L, Estimat Glomerular Filtration Rate 131, BUN/Creatinine Ratio 8, Glucose Level 94, Calcium Level 7.3L, Corrected Calcium 9.0, Magnesium Level 1.7, Total Bilirubin 0.2, Aspartate Amino Transf (AST/SGOT) 15, Alanine Aminotransferase (ALT/SGPT) < 6, Alkaline Phosphatase 94, Total Protein 4.4L, Albumin 1.9L Microbiology 05/13/23 MRSA Screen - Final, Complete MRSA not isolated 05/13/23 Urine Culture - Final, Complete NO GROWTH 05/13/23 Gram Stain - Final, Complete 05/13/23 Wound Culture - Final, Complete Pseudomonas aeruginosa Mixed Bacterial Aleta 05/13/23 Blood Culture - Preliminary, Resulted Staph, Coag Neg ([facility]) Assessment/Plan Assessment/Plan Assess & Plan/Chief Complaint Assessment: Bilateral cellulitis thighs Plan: Monitor bowels Dr Fernandez consult appreciated ATIF LIND DO May 18, 2023 07:44
[2023-05-18] MEDS: PATCH REMOVAL TP SCH (07:45)
[2023-05-18] MEDS: POTASSIUM BICARB 20 MEQ (EFFER-K) TABLET PO SCH ×3 (07:45→19:50)
[2023-05-18] MEDS: NICOTINE 21 MG (NICODERM) PATCH TD SCH (07:47)
[2023-05-18] MEDS: MICONAZOLE 2% POWDER (DESENEX AF) 90 GM TOP SCH ×2 (07:48→19:51)
[2023-05-18] MEDS: CEFEPIME 2,000 MG/NS 50 ML IVPB IV SCH ×4 (07:48→19:50)
[2023-05-18] MEDS: SENNA W/DOCUSATE (SENOKOT S) TABLET PO SCH ×2 (07:52→19:33)
[2023-05-18] MEDS: polyethylene glycoL POWDER 17 GM (MIRALAX) PACK PO SCH ×2 (07:52→19:33)
[2023-05-18] MEDS: ENOXAPARIN 40 MG/0.4 ML SYRINGE SC SCH (08:23)
--- NOTE | 2023-05-18 10:53 | Progress Note - Surgery ---
Subjective Date Seen by a Provider: May 18, 2023 Time Seen by a Provider: 10:52 Subjective/Events-last exam No new complaints. Abdomen improved. Pain controlled. Denies n/v fever sweats chills shortness of breath or chest pain. Objective Exam Vital Signs Date Time Temp Pulse Resp B/P (MAP) Pulse Ox O2 Delivery O2 Flow Rate FiO2 05/18/23 09:18 Room Air 05/18/23 07:32 37.0 75 18 122/83 (96) 96 Room Air 05/18/23 04:00 36.8 65 16 116/78 (91) 98 Room Air 0.00 0.00 05/17/23 23:30 36.5 78 16 111/69 (83) 98 Room Air 0.00 0.00 05/17/23 20:27 Room Air 05/17/23 19:41 36.9 72 16 105/70 (82) 97 Room Air 0.00 0.00 05/17/23 16:00 36.8 76 16 115/75 (88) 98 Room Air 0.00 0.00 05/17/23 11:30 36.7 74 18 111/76 (88) 98 Room Air I & O 05/18/23 07:00 Intake Total 3340 ml Output Total 4450 ml Balance -1110 ml Capillary Refill : Less Than 3 Seconds General Appearance: No Apparent Distress, WD/WN HEENT: PERRL/EOMI, Moist Mucous Membranes Neck: Non Tender, Supple Respiratory: Chest Non Tender, No Accessory Muscle Use, No Respiratory Distress Cardiovascular: Regular Rate, Rhythm, No JVD Gastrointestinal: non tender, soft, other (left lower abdomen swelling) Extremity: Inflammation, Swelling (slightly improved), Other (bl AKA) Neurologic/Psychiatric: Alert, Oriented x3 Skin: Erythema, Other (ulcerative lesions on posterior thighs) Lymphatic: No Adenopathy Results Lab Laboratory Tests 05/18/23 05:59: White Blood Count 3.5L, Red Blood Count 3.75L, Hemoglobin 11.0L, Hematocrit 34L, Mean Corpuscular Volume 91, Mean Corpuscular Hemoglobin 29, Mean Corpuscular Hemoglobin Concent 32, Red Cell Distribution Width 22.6H, Platelet Count 190, Mean Platelet Volume 9.2, Immature Granulocyte % (Auto) 0, Neutrophils (%) (Au to) 47, Lymphocytes (%) (Auto) 38, Monocytes (%) (Auto) 8, Eosinophils (%) (Auto) 6, Basophils (%) (Auto) 1, Neutrophils # (Auto) 1.7L, Lymphocytes # (Auto) 1.3, Monocytes # (Auto) 0.3, Eosinophils # (Auto) 0.2, Basophils # (Auto) 0.0, Immature Granulocyte # (Auto) 0.0, Sodium Level 141, Potassium Level 4.0, Chloride Level 109H, Carbon Dioxide Level 24, Anion Gap 8, Blood Urea Nitrogen 4L, Creatinine 0.48L, Estimat Glomerular Filtration Rate 131, BUN/Creatinine Ratio 8, Glucose Level 94, Calcium Level 7.3L, Corrected Calcium 9.0, Magnesium Level 1.7, Total Bilirubin 0.2, Aspartate Amino Transf (AST/SGOT) 15, Alanine Aminotransferase (ALT/SGPT) < 6, Alkaline Phosphatase 94, Total Protein 4.4L, Albumin 1.9L Microbiology 05/13/23 MRSA Screen - Final, Complete MRSA not isolated 05/13/23 Urine Culture - Final, Complete NO GROWTH 05/13/23 Gram Stain - Final, Complete 05/13/23 Wound Culture - Final, Complete Pseudomonas aeruginosa Mixed Bacterial Aleta 05/13/23 Blood Culture - Final, Complete Staph, Coag Neg ([facility]) Assessment/Plan Assessment/Plan Assessment/Plan b/l lower extremity pain b/l lower extremity swelling b/l lower extremity chronic wounds history of b/l AKA hypokalemia poor compliance with follow up lower abdominal wall swelling Patient discussed care needs which he is not able to have at home. He is still ok with going to possible LTAC for longer-term care. Social work which will work on options. Patient with multiple admission for same care needs and with noncompliance at home this cycle will continue. Abdomen improved discomfort/swelling. Continue wound care. No surgical intervention at this time. Discussed trying to increase activities CHASE GONZALEZ DO May 18, 2023 10:52
[2023-05-18 12:08] VITALS: BP 121/80
[2023-05-18 16:07] VITALS: BP 106/67
[2023-05-18 19:44] VITALS: BP 118/64
[2023-05-18 23:53] VITALS: BP 117/72
[2023-05-19 05:02] LABS: BASOPHILS % (AUTO) 1 % (0-10); EOSINOPHILS # (AUTO) 0.2 10^3/uL (0.0-0.3); EOSINOPHILS % (AUTO) 5 % (0-10); HEMATOCRIT 36 % (40-54); HEMOGLOBIN 11.6 g/dL (13.3-17.7); LYMPHOCYTES # (AUTO) 1.5 10^3/uL (1.0-4.0); LYMPHOCYTES % (AUTO) 37 % (12-44); MEAN CORPUSCULAR HEMOGLOBIN 30 pg (25-34); MEAN CORPUSCULAR HGB CONC 33 g/dL (32-36); MEAN CORPUSCULAR VOLUME 90 fL (80-99); MEAN PLATELET VOLUME 9.2 fL (9.0-12.2); MONOCYTES # (AUTO) 0.4 10^3/uL (0.0-1.0); MONOCYTES % (AUTO) 9 % (0-12); NEUTROPHILS % (AUTO) 48 % (42-75); PLATELET COUNT 215 10^3/uL (130-400); WHITE BLOOD COUNT 4.1 10^3/uL (4.3-11.0)
[2023-05-19 05:33] LABS: ALBUMIN 2.1 GM/DL (3.2-4.5); BILIRUBIN,TOTAL 0.2 MG/DL (0.1-1.0); CALCIUM 7.8 MG/DL (8.5-10.1); CREATININE SERUM 0.51 MG/DL (0.60-1.30); MAGNESIUM 1.7 MG/DL (1.6-2.4); POTASSIUM 4.6 MMOL/L (3.6-5.0)
[2023-05-19 07:09] VITALS: BP 122/71
[2023-05-19] MEDS: POTASSIUM BICARB 20 MEQ (EFFER-K) TABLET PO SCH ×3 (07:47→20:40)
[2023-05-19] MEDS: MICONAZOLE 2% POWDER (DESENEX AF) 90 GM TOP SCH ×2 (07:49→20:40)
[2023-05-19] MEDS: SENNA W/DOCUSATE (SENOKOT S) TABLET PO SCH ×2 (07:49→20:37)
[2023-05-19] MEDS: NICOTINE 21 MG (NICODERM) PATCH TD SCH (07:49)
[2023-05-19] MEDS: PATCH REMOVAL TP SCH (07:49)
[2023-05-19] MEDS: polyethylene glycoL POWDER 17 GM (MIRALAX) PACK PO SCH ×2 (07:49→20:37)
[2023-05-19] MEDS: CEFEPIME 2,000 MG/NS 50 ML IVPB IV SCH ×4 (07:51→20:40)
[2023-05-19] MEDS: ENOXAPARIN 40 MG/0.4 ML SYRINGE SC SCH (08:47)
--- NOTE | 2023-05-19 10:03 | Progress Note ---
Subjective Date Seen by a Provider: May 19, 2023 Time Seen by a Provider: 10:00 Subjective/Events-last exam No pain reported No falls BM+ Minimal activity Review of Systems General: Fatigue, Malaise Objective Exam Last Set of Vital Signs Vital Signs Date Time Temp Pulse Resp B/P (MAP) Pulse Ox O2 Delivery O2 Flow Rate FiO2 05/19/23 09:59 Room Air 05/19/23 07:09 37.2 62 17 122/71 (88) 05/18/23 23:53 97 05/18/23 04:00 0.00 0.00 05/13/23 06:22 28 Capillary Refill : Less Than 3 Seconds I&O Intake and Output 05/19/23 00:00 Intake Total 4270 ml Output Total 5850 ml Balance -1580 ml Intake Oral 4020 ml IV Total 250 ml Output Urine Total 5850 ml General: Alert, Oriented X3, Cooperative, No Acute Distress Lungs: Clear to Auscultation, Normal Air Movement Heart: Regular Rate, Normal S1, Normal S2, No Murmurs Psych/Mental Status: Mental Status NL, Mood NL Results Lab Laboratory Tests 05/19/23 04:54: White Blood Count 4.1L, Red Blood Count 3.93L, Hemoglobin 11.6L, Hematocrit 36L, Mean Corpuscular Volume 90, Mean Corpuscular Hemoglobin 30, Mean Corpuscular Hemoglobin Concent 33, Red Cell Distribution Width 22.5H, Platelet Count 215, Mean Platelet Volume 9.2, Immature Granulocyte % (Auto) 1, Neutrophils (%) (Auto) 48, Lymphocytes (%) (Auto) 37, Monocytes (%) (Auto) 9, Eosinophils (%) (Auto) 5, Basophils (%) (Auto) 1, Neutrophils # (Auto) 2.0, Lymphocytes # (Auto) 1.5, Monocytes # (Auto) 0.4, Eosinophils # (Auto) 0.2, Basophils # (Auto) 0.0, Immature Granulocyte # (Auto) 0.0, Sodium Level 136, Potassium Level 4.6, Chloride Level 105, Carbon Dioxide Level 25, Anion Gap 6, Blood Urea Nitrogen 5L , Creatinine 0.51L, Estimat Glomerular Filtration Rate 129, BUN/Creatinine Ratio 10, Glucose Level 86, Calcium Level 7.8L, Corrected Calcium 9.3, Magnesium Level 1.7, Total Bilirubin 0.2, Aspartate Amino Transf (AST/SGOT) 16, Alanine Aminotransferase (ALT/SGPT) 7, Alkaline Phosphatase 99, Total Protein 5.0L, Albumin 2.1L Microbiology 05/13/23 MRSA Screen - Final, Complete MRSA not isolated 05/13/23 Urine Culture - Final, Complete NO GROWTH 05/13/23 Gram Stain - Final, Complete 05/13/23 Wound Culture - Final, Complete Pseudomonas aeruginosa Mixed Bacterial Aleta 05/13/23 Blood Culture - Final, Complete Staph, Coag Neg ([facility]) Assessment/Plan Assessment/Plan Assess & Plan/Chief Complaint Assessment: Bilateral cellulitis thighs B/L lower extremity amputations Plan: Monitor bowels ATIF LIND DO May 19, 2023 10:03
--- NOTE | 2023-05-19 10:32 | Occupational Therapy Eval ---
OT Evaluation-General/PLF Medical Diagnosis Admission Date May 13, 2023 at 05:44 Medical Diagnosis: Bilateral cellulitis thighs Onset Date: May 13, 2023 Therapy Diagnosis Therapy Diagnosis: weakness Precautions Precautions/Isolations: Fall Prevention, Standard Precautions, Pressure Ulcer Weight Bear Status BAKA Referral Referral Reason: Self Care, Evaluation/Treatment Medical History Pertinent Medical History: COPD, PVD Reviewed History: Yes Social History Home: Single Level Current Living Status: Spouse Entry Into Home: Level Entry ADL-Prior Level of Function SCALE: Activities may be completed with or without assistive devices. 8-Gccwtxsbzt-dgioanv completes the activity by him/herself with no assistance from a helper. 5-Set-up or Clean-up Assistance-helper sets up or cleans up; patient completes activity. [place] assists only prior to or following the activity. 4-Supervision or Touching Assistance-helper provides verbal cues and/or touching/steadying and/or contact guard assistance as patient completes act ivity. Assistance may be provided throughout the activity or intermittently. 3-Partial/Moderate Assistance-helper does LESS THAN HALF the effort. [place] lifts, holds or supports trunk or limbs, but provides less than half the effort. 2-Substantial/Maximal Assistance-helper does MORE THAN HALF the effort. [place] lifts or holds trunk or limbs and provides more than half the effort. 7-Hihhraegw-wtjivs does ALL the effort. Patient does none of the effort to complete the activity. Or, the assistance of 2 or more helpers is required for the patient to complete the activity. If activity was not attempted, code reason: 7-Patient Refused. 9-Not Applicable-not attempted and the patient did not perform the activity before the current illness, exacerbation or injury. 10-Not Attempted due to Environmental Limitations-(lack of equipment, weather restraints, etc.). 88-Not Attempted due to Medical Conditions or Safety Concerns. 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 Reports he has a WC cushion, does not drive not does he own a vehicle. Self Care: Independent (conflicting report d/t health condition) Functional Cognition: Needed Some Help DME/Equipment Comments WC, patient reports WC needs repair Drive Self: No OT Current Status Subjective Watching movie on laptop on OT arrival, agreeable to OT Pain Numeric Pain Scale: 5-Moderate Pain (same as always) Mental Status/Objective Patient Orientation: Person, Place, Situation Current Glasses/Contacts: No Hearing Aids: No Dentures/Partials: No Upper Extremity ROM BUE ROM WFLS Upper Extremity Coordination INTACT, uses keyboard for work Upper Extremity Strength WFLs, able to roll Right and left direction in bed, scoot HOB and reposition independently ADL-Treatment Eating (QC): 6 Oral Hygiene (QC): 5 Shower/Bathe Self (QC): 7 Upper Body Dressing (QC): 5 Lower Body Dressing (QC): 5 Toileting Hygiene (QC): 3 Education OT Patient Education: Exercise program, Modified ADL techniques, Progress toward Goal/Update tx plan, Purpose of tx/functional activities, Reviewed precautions, Rehab process, Safety issues, Transfer techniques, Use of adapted equipment Teaching Recipient: Patient Teaching Methods: Discussion Response to Teaching: Reinforcement Needed OT Short Term Goals Short Term Goals Time Frame: May 23, 2023 Toileting hygiene: 4 Shower/bathe self: 4 OT Release Engineer Goals Mcfp Goals Toileting Hygiene (QC): 6 Shower/Bathe Self (QC): 6 Upper Body Dressing (QC): 6 Lower Body Dressing (QC): 6 On/Off Footwear (QC): 6 1=Demonstrate adherence to instructed precautions during ADL tasks. 2=Patient will verbalize/demonstrate understanding of assistive devices/modifications for ADL. 3=Patient will improve strength/tolerance for activity to enable patient to perform ADL's. OT Education/Plan Problem List/Assessment Assessment: Decreased Activ Tolerance, Impaired Self-Care Skills Discharge Recommendations Plan/Recommendations: Continue POC Treatment Plan/Plan of Care Patient would benefit from OT for education, treatment and training to promote independence in ADL's, mobility, safety and/or upper extremity function for ADL's. Plan of Care: ADL Retraining, Cognitive Retraining, Concurrent Therapy, Functional Mobility, Group Exercise/Act as Ind, UE Funct Exercise/Act Treatment Duration: May 26, 2023 Frequency: 3 times per week (3-5 times per week) Estimated Hrs Per Day: .25 hour per day Agreement: Yes Rehab Potential: Fair Time Start Time: 10:05 Stop Time: 10:30 DATE: May 19, 2023 Total Time Billed (hr/min): 25 Billed Treatment Time EVM 25 ALONA JACOB OT May 19, 2023 10:32
[2023-05-19 11:24] VITALS: BP 120/66
[2023-05-19 15:45] VITALS: BP 117/75
--- NOTE | 2023-05-19 18:22 | Progress Note - Surgery ---
Subjective Date Seen by a Provider: May 19, 2023 Time Seen by a Provider: 12:10 Subjective/Events-last exam Patient same as yesterday. No new complaints. No significant pain except pain in legs/wounds when trying to move. Abdomen feeling good. Denies n/v fever sweats chills shortness of breath or chest pain. Objective Exam Vital Signs Date Time Temp Pulse Resp B/P (MAP) Pulse Ox O2 Delivery O2 Flow Rate FiO2 05/19/23 15:45 36.8 65 18 117/75 (89) 99 Room Air 05/19/23 11:24 37.0 67 18 120/66 (84) 96 Room Air 05/19/23 09:59 Room Air 05/19/23 07:09 37.2 62 17 122/71 (88) Room Air 05/18/23 23:53 36.6 66 18 117/72 (87) 97 Room Air 05/18/23 20:44 Room Air 05/18/23 19:44 36.7 75 18 118/64 (82) 98 Room Air I & O 05/19/23 07:00 Intake Total 3960 ml Output Total 7050 ml Balance -3090 ml Capillary Refill : Less Than 3 Seconds General Appearance: No Apparent Distress, WD/WN HEENT: PERRL/EOMI, Moist Mucous Membranes Neck: Non Tender, Supple Respiratory: Chest Non Tender, No Accessory Muscle Use, No Respiratory Distress Cardiovascular: Regular Rate, Rhythm, No JVD Gastrointestinal: non tender, soft, other (left lower abdomen swelling-minimal) Extremity: Inflammation, Swelling (slightly improved), Other (bl AKA) Neurologic/Psychiatric: Alert, Oriented x3 Skin: Erythema, Other (ulcerative lesions on posterior thighs) Lymphatic: No Adenopathy Results Lab Laboratory Tests 05/19/23 04:54: White Blood Count 4.1L, Red Blood Count 3.93L, Hemoglobin 11.6L, Hematocrit 36L, Mean Corpuscular Volume 90, Mean Corpuscular Hemoglobin 30, Mean Corpuscular Hemoglobin Concent 33, Red Cell Distribution Width 22.5H, Platelet Count 215, Mean Platelet Volume 9.2, Immature Granulocyte % (Auto) 1, Neutrophils (%) (Auto) 48, Lymphocytes (%) (Auto) 37, Monocytes (%) (Auto) 9, Eosinophils (%) (Auto) 5, Basophils (%) (Auto) 1, Neutrophils # (Auto) 2.0, Lymphocytes # (Auto) 1.5, Monocytes # (Auto) 0.4, Eosinophils # (Auto) 0.2, Basophils # (Auto) 0.0, Immature Granulocyte # (Auto) 0.0, Sodium Level 136, Potassium Level 4.6, Chloride Level 105, Carbon Dioxide Level 25, Anion Gap 6, Blood Urea Nitrogen 5L , Creatinine 0.51L, Estimat Glomerular Filtration Rate 129, BUN/Creatinine Ratio 10, Glucose Level 86, Calcium Level 7.8L, Corrected Calcium 9.3, Magnesium Level 1.7, Total Bilirubin 0.2, Aspartate Amino Transf (AST/SGOT) 16, Alanine Aminotransferase (ALT/SGPT) 7, Alkaline Phosphatase 99, Total Protein 5.0L, Albumin 2.1L Microbiology 05/13/23 MRSA Screen - Final, Complete MRSA not isolated 05/13/23 Urine Culture - Final, Complete NO GROWTH 05/13/23 Gram Stain - Final, Complete 05/13/23 Wound Culture - Final, Complete Pseudomonas aeruginosa Mixed Bacterial Aleta 05/13/23 Blood Culture - Final, Complete Staph, Coag Neg ([facility]) Assessment/Plan Assessment/Plan Assessment/Plan b/l lower extremity pain b/l lower extremity swelling b/l lower extremity chronic wounds history of b/l AKA hypokalemia poor compliance with follow up lower abdominal wall swelling-improving Patient discussed care needs which he is not able to have at home. He is still ok with going to possible LTAC for longer-term care. Social work which will work on options-referral sent Patient with multiple admission for same care needs and with noncompliance at home this cycle will continue. Abdomen improved discomfort/swelling. Continue wound care. No surgical intervention at this time. Discussed trying to increase activities CHASE GONZALEZ DO May 19, 2023 18:22
[2023-05-19 23:04] VITALS: BP 119/70
[2023-05-20 03:05] VITALS: BP 122/79
[2023-05-20 06:36] LABS: BASOPHILS # (AUTO) 0.1 10^3/uL (0.0-0.1); BASOPHILS % (AUTO) 1 % (0-10); EOSINOPHILS # (AUTO) 0.2 10^3/uL (0.0-0.3); EOSINOPHILS % (AUTO) 6 % (0-10); HEMATOCRIT 39 % (40-54); HEMOGLOBIN 12.2 g/dL (13.3-17.7); LYMPHOCYTES # (AUTO) 1.4 10^3/uL (1.0-4.0); LYMPHOCYTES % (AUTO) 36 % (12-44); MEAN CORPUSCULAR HEMOGLOBIN 29 pg (25-34); MEAN CORPUSCULAR HGB CONC 32 g/dL (32-36); MEAN CORPUSCULAR VOLUME 90 fL (80-99); MEAN PLATELET VOLUME 9.2 fL (9.0-12.2); MONOCYTES # (AUTO) 0.3 10^3/uL (0.0-1.0); MONOCYTES % (AUTO) 8 % (0-12); NEUTROPHILS # (AUTO) 1.9 10^3/uL (1.8-7.8); NEUTROPHILS % (AUTO) 48 % (42-75); PLATELET COUNT 240 10^3/uL (130-400)
[2023-05-20 06:48] LABS: ALBUMIN 2.3 GM/DL (3.2-4.5)
[2023-05-20 06:49] LABS: POTASSIUM 5.2 MMOL/L (3.6-5.0)
[2023-05-20 06:50] LABS: CALCIUM 8.5 MG/DL (8.5-10.1)
[2023-05-20 06:51] LABS: TOTAL PROTEIN 5.4 GM/DL (6.4-8.2)
[2023-05-20 06:53] LABS: BILIRUBIN,TOTAL 0.2 MG/DL (0.1-1.0)
[2023-05-20 06:55] LABS: CREATININE SERUM 0.53 MG/DL (0.60-1.30)
[2023-05-20 06:57] LABS: MAGNESIUM 2.1 MG/DL (1.6-2.4)
[2023-05-20 07:50] VITALS: BP 126/71
[2023-05-20] MEDS: PATCH REMOVAL TP SCH (08:11)
[2023-05-20] MEDS: NICOTINE 21 MG (NICODERM) PATCH TD SCH (08:11)
[2023-05-20] MEDS: polyethylene glycoL POWDER 17 GM (MIRALAX) PACK PO SCH ×2 (08:11→19:49)
[2023-05-20] MEDS: CEFEPIME 2,000 MG/NS 50 ML IVPB IV SCH ×4 (08:11→19:48)
[2023-05-20] MEDS: POTASSIUM BICARB 20 MEQ (EFFER-K) TABLET PO SCH (08:11)
[2023-05-20] MEDS: MICONAZOLE 2% POWDER (DESENEX AF) 90 GM TOP SCH ×2 (08:12→19:48)
[2023-05-20] MEDS: SENNA W/DOCUSATE (SENOKOT S) TABLET PO SCH ×2 (08:12→19:49)
--- NOTE | 2023-05-20 10:00 | Progress Note ---
Subjective Date Seen by a Provider: May 20, 2023 Time Seen by a Provider: 10:00 Subjective/Events-last exam No major issues Awaiting dispo Monitoring closely Objective Exam Last Set of Vital Signs Vital Signs Date Time Temp Pulse Resp B/P (MAP) Pulse Ox O2 Delivery O2 Flow Rate FiO2 05/20/23 07:50 36.8 68 18 126/71 (89) 97 Room Air 05/18/23 04:00 0.00 0.00 Capillary Refill : Less Than 3 Seconds I&O Intake and Output 05/19/23 23:59 Intake Total 3250 ml Output Total 8975 ml Balance -5725 ml Intake Oral 3200 ml IV Total 50 ml Output Urine Total 8975 ml # Bowel Movements 1 Results Lab Laboratory Tests 05/20/23 06:14: White Blood Count 4.0L, Red Blood Count 4.26L, Hemoglobin 12.2L, Hematocrit 39L, Mean Corpuscular Volume 90, Mean Corpuscular Hemoglobin 29, Mean Corpuscular Hemoglobin Concent 32, Red Cell Distribution Width 22.8H, Platelet Count 240, Mean Platelet Volume 9.2, Immature Granulocyte % (Auto) 1, Neutrophils (%) (Auto) 48, Lymphocytes (%) (Auto) 36, Monocytes (%) (Auto) 8, Eosinophils (%) (Auto) 6, Basophils (%) (Auto) 1, Neutrophils # (Auto) 1.9, Lymphocytes # (Auto) 1.4, Monocytes # (Auto) 0.3, Eosinophils # (Auto) 0.2, Basophils # (Auto) 0.1, Immature Granulocyte # (Auto) 0.0, Sodium Level 136, Potassium Level 5.2H, Chloride Level 105, Carbon Dioxide Level 24, Anion Gap 7, Blood Urea Nitrogen 6L , Creatinine 0.53L, Estimat Glomerular Filtration Rate 128, BUN/Creatinine Ratio 11, Glucose Level 92, Calcium Level 8.5, Corrected Calcium 9.9, Magnesium Level 2.1, Total Bilirubin 0.2, Aspartate Amino Transf (AST/SGOT) 15, Alanine Aminotransferase (ALT/SGPT) 7, Alkaline Phosphatase 108, Total Protein 5.4L, Albumin 2.3L Microbiology 05/13/23 MRSA Screen - Final, Complete MRSA not isolated 05/13/23 Urine Culture - Final, Complete NO GROWTH 05/13/23 Gram Stain - Final, Complete 05/13/23 Wound Culture - Final, Complete Pseudomonas aeruginosa Mixed Bacterial Aleta 05/13/23 Blood Culture - Final, Complete Staph, Coag Neg ([employer]) Assessment/Plan Assessment/Plan Assess & Plan/Chief Complaint Assessment: Bilateral cellulitis thighs B/L lower extremity amputations Plan: Monitor bowels Await dispo ATIF LIND DO May 20, 2023 10:00
--- NOTE | 2023-05-20 10:23 | Occupational Ther Daily Note ---
OT Current Status-Daily Note Subjective On arrival, patient watching movies n laptop. Agreeable to participate w/ OT ther ex for offloading, and UE strengthening Mental Status/Objective Patient Orientation: Person, Place, Time, Situation ADL-Treatment Therapy Code Descriptions/Definitions Functional [place] Measure: 0=Not Assessed/NA 4=Minimal Assistance 1=Total Assistance 5=Supervision or Setup 2=Maximal Assistance 6=Modified [place] 3=Moderate Assistance 7=Complete IndependenceSCALE: Activities may be completed with or without assistive devices. 1-Citcikyqml-fnaywyt completes the activity by him/herself with no assistance from a helper. 5-Set-up or Clean-up Assistance-helper sets up or cleans up; patient completes activity. [place] assists only prior to or following the activity. 4-Supervision or Touching Assistance-helper provides verbal cues and/or touching/steadying and/or contact guard assistance as patient completes activity. Assistance may be provided throughout the activity or intermittently. 3-Partial/Moderate Assistance-helper does LESS THAN HALF the effort. [place] lifts, holds or supports trunk or limbs, but provides less than half the effort. 2-Substantial/Maximal Assistance-helper does MORE THAN HALF the effort. [place] lifts or holds trunk or limbs and provides more than half the effort. 8-Opxjjtfay-rzadhu does ALL the effort. Patient does none of the effort to complete the activity. Or, the assistance of 2 or more helpers is required for the patient to complete the activity. If activity was not attempted, code reason: 7-Patient Refused. 9-Not Applicable-not attempted and the patient did not perform the activity before the current illness, exacerbation or injury. 10-Not Attempted due to Environmental Limitations-(lack of equipment, weather restraints, etc.). 88-Not Attempted due to Medical Conditions or Safety Concerns. Eating (QC): 6 Oral Hygiene (QC): 5 (set up) Shower/Bathe Self (QC): 7 Upper Body Dressing (QC): 5 Lower Body Dressing (QC): 7 On/Off Footwear: 9 Toileting Hygiene (QC): 7 Toilet Transfer (QC): 7 (uses urinal, refuses transfers) Other Treatment RED theapy band HEP Education OT Patient Education: Correct positioning, Exercise program, Home exercise program, Modified ADL techniques, Progress toward Goal/Update tx plan, Purpose of tx/functional activities, Reviewed precautions, Rehab process, Safety issues, Use of adapted equipment Teaching Recipient: Patient Teaching Methods: Demonstration Response to Teaching: Return Demonstration OT Short Term Goals Short Term Goals Time Frame: May 23, 2023 Toileting hygiene: 4 Shower/bathe self: 4 OT Laundry Machine Mechanic Goals Retirement Goals Toileting Hygiene (QC): 6 Shower/Bathe Self (QC): 6 Upper Body Dressing (QC): 6 Lower Body Dressing (QC): 6 On/Off Footwear (QC): 6 1=Demonstrate adherence to instructed precautions during ADL tasks. 2=Patient will verbalize/demonstrate understanding of assistive devices/modifications for ADL. 3=Patient will improve strength/tolerance for activity to enable patient to perform ADL's. OT Education/Plan Problem List/Assessment Assessment: Decreased UE Strength (*), Impaired Coordination, Impaired Funct Balance, Impaired Self-Care Skills *unable to perform floor to wheelchair transfer, calls EMS for assistance Discharge Recommendations Plan/Recommendations: Discontinue OT (patient decilnes further intervention) Treatment Plan/Plan of Care Treatment,Training & Education: Yes Patient would benefit from OT for education, treatment and training to promote independence in ADL's, mobility, safety and/or upper extremity function for ADL's. Plan of Care: ADL Retraining, Cognitive Retraining, Concurrent Therapy, Functional Mobility, Group Exercise/Act as Ind, UE Funct Exercise/Act Treatment Duration: May 26, 2023 Frequency: 3 times per week (3-5 times per week) Estimated Hrs Per Day: .25 hour per day Agreement: Yes Rehab Potential: Fair discontinue OT services Time Start Time: :07 Stop Time: 09:23 DATE: May 20, 2023 Total Time Billed (hr/min): 16 Billed Treatment Time EX 16 min ALONA JACOB OT May 20, 2023 10:23
[2023-05-20] MEDS: ENOXAPARIN 40 MG/0.4 ML SYRINGE SC SCH (11:05)
[2023-05-20 16:10] VITALS: BP 107/67
--- NOTE | 2023-05-20 17:06 | Progress Note - Surgery ---
Subjective Date Seen by a Provider: May 20, 2023 Time Seen by a Provider: 13:40 Subjective/Events-last exam Patient fatigued. No new complaints. No abdominal pain. Legs okay. Denies n/v fever sweats chills shortness of breath or chest pain. Objective Exam Vital Signs Date Time Temp Pulse Resp B/P (MAP) Pulse Ox O2 Delivery O2 Flow Rate FiO2 05/20/23 16:10 36.8 71 19 107/67 (80) 97 Room Air 05/20/23 08:00 Room Air 05/20/23 07:50 36.8 68 18 126/71 (89) 97 Room Air 05/20/23 03:05 36.6 78 20 122/79 (93) 93 Room Air 05/19/23 23:04 36.8 68 20 119/70 (86) 98 Room Air 05/19/23 20:45 Room Air I & O 05/20/23 07:00 Intake Total 2610 ml Output Total 97479 ml Balance -7415 ml Capillary Refill : Less Than 3 Seconds General Appearance: No Apparent Distress, WD/WN HEENT: PERRL/EOMI, Moist Mucous Membranes Neck: Non Tender, Supple Respiratory: Chest Non Tender, No Accessory Muscle Use, No Respiratory Distress Cardiovascular: Regular Rate, Rhythm, No JVD Gastrointestinal: non tender, soft, other (left lower abdomen swelling-minimal) Extremity: Inflammation, Swelling (improving), Other (bl AKA) Neurologic/Psychiatric: Alert, Oriented x3 Skin: Erythema, Other (ulcerative lesions on posterior thighs) Lymphatic: No Adenopathy Results Lab Laboratory Tests 05/20/23 06:14: White Blood Count 4.0L, Red Blood Count 4.26L, Hemoglobin 12.2L, Hematocrit 39L, Mean Corpuscular Volume 90, Mean Corpuscular Hemoglobin 29, Mean Corpuscular Hemoglobin Concent 32, Red Cell Distribution Width 22.8H, Platelet Count 240, Mean Platelet Volume 9.2, Immature Granulocyte % (Auto) 1, Neutrophils (%) (Auto) 48, Lymphocytes (%) (Auto) 36, Monocytes (%) (Auto) 8, Eosinophils (%) (Auto) 6, Basophils (%) (Auto) 1, Neutrophils # (Auto) 1.9, Lymphocytes # (Auto) 1.4, Monocytes # (Auto) 0.3, Eosinophils # (Auto) 0.2, Basophils # (Auto) 0.1, Immature Granulocyte # (Auto) 0.0, Sodium Level 136, Potassium Level 5.2H, Chloride Level 105, Carbon Dioxide Level 24, Anion Gap 7, Blood Urea Nitrogen 6L , Creatinine 0.53L, Estimat Glomerular Filtration Rate 128, BUN/Creatinine Ratio 11, Glucose Level 92, Calcium Level 8.5, Corrected Calcium 9.9, Magnesium Level 2.1, Total Bilirubin 0.2, Aspartate Amino Transf (AST/SGOT) 15, Alanine Aminotransferase (ALT/SGPT) 7, Alkaline Phosphatase 108, Total Protein 5.4L, Albumin 2.3L Microbiology 05/13/23 MRSA Screen - Final, Complete MRSA not isolated 05/13/23 Urine Culture - Final, Complete NO GROWTH 05/13/23 Gram Stain - Final, Complete 05/13/23 Wound Culture - Final, Complete Pseudomonas aeruginosa Mixed Bacterial Aleta 05/13/23 Blood Culture - Final, Complete Staph, Coag Neg (SEARCH LEAD) Assessment/Plan Assessment/Plan Assessment/Plan b/l lower extremity pain b/l lower extremity swelling b/l lower extremity chronic wounds history of b/l AKA hypokalemia now hyperkalemia-monitor poor compliance with follow up lower abdominal wall swelling-improving Patient discussed care needs which he is not able to have at home. He is still ok with going to possible LTAC for longer-term care. Social work which will work on options-referral sent awaiting eval Patient with multiple admission for same care needs and with noncompliance at home this cycle will continue. Abdomen improved discomfort/swelling. Continue wound care. No surgical intervention at this time. Discussed trying to increase activities CHASE GONZALEZ DO May 20, 2023 17:06
[2023-05-20 23:25] VITALS: BP 99/64
[2023-05-21 03:55] VITALS: BP 105/68
[2023-05-21 06:29] LABS: BASOPHILS % (AUTO) 1 % (0-10); EOSINOPHILS # (AUTO) 0.2 10^3/uL (0.0-0.3); EOSINOPHILS % (AUTO) 6 % (0-10); HEMATOCRIT 37 % (40-54); LYMPHOCYTES # (AUTO) 1.4 10^3/uL (1.0-4.0); LYMPHOCYTES % (AUTO) 34 % (12-44); MEAN CORPUSCULAR HEMOGLOBIN 29 pg (25-34); MEAN CORPUSCULAR HGB CONC 32 g/dL (32-36); MEAN CORPUSCULAR VOLUME 91 fL (80-99); MONOCYTES # (AUTO) 0.4 10^3/uL (0.0-1.0); MONOCYTES % (AUTO) 10 % (0-12); NEUTROPHILS % (AUTO) 49 % (42-75); PLATELET COUNT 266 10^3/uL (130-400); WHITE BLOOD COUNT 4.2 10^3/uL (4.3-11.0)
[2023-05-21 06:41] LABS: ALBUMIN 2.5 GM/DL (3.2-4.5); POTASSIUM 5.1 MMOL/L (3.6-5.0)
[2023-05-21 06:42] LABS: CALCIUM 8.3 MG/DL (8.5-10.1)
[2023-05-21 06:43] LABS: TOTAL PROTEIN 5.6 GM/DL (6.4-8.2)
[2023-05-21 06:45] LABS: BILIRUBIN,TOTAL 0.2 MG/DL (0.1-1.0)
[2023-05-21 06:47] LABS: CREATININE SERUM 0.54 MG/DL (0.60-1.30)
[2023-05-21 08:03] VITALS: BP 104/74
[2023-05-21] MEDS: NICOTINE 21 MG (NICODERM) PATCH TD SCH (08:25)
[2023-05-21] MEDS: CEFEPIME 2,000 MG/NS 50 ML IVPB IV SCH ×4 (08:25→20:21)
[2023-05-21] MEDS: MICONAZOLE 2% POWDER (DESENEX AF) 90 GM TOP SCH ×2 (08:25→20:25)
[2023-05-21] MEDS: PATCH REMOVAL TP SCH (08:26)
[2023-05-21] MEDS: ENOXAPARIN 40 MG/0.4 ML SYRINGE SC SCH (08:26)
[2023-05-21] MEDS: polyethylene glycoL POWDER 17 GM (MIRALAX) PACK PO SCH ×2 (08:57→20:25)
[2023-05-21] MEDS: SENNA W/DOCUSATE (SENOKOT S) TABLET PO SCH ×2 (08:57→20:25)
[2023-05-21] MEDS: HYPOCHLOROUS ACID/NaCl (VASHE) 250 ML IR PRN (10:19)
--- NOTE | 2023-05-21 10:51 | Progress Note ---
Subjective Date Seen by a Provider: May 21, 2023 Time Seen by a Provider: 10:50 Subjective/Events-last exam LTAC evaluating him today No changes Talking on phone at time of my exam Objective Exam Last Set of Vital Signs Vital Signs Date Time Temp Pulse Resp B/P (MAP) Pulse Ox O2 Delivery O2 Flow Rate FiO2 05/21/23 08:03 36.6 74 18 104/74 (84) 97 Room Air 05/18/23 04:00 0.00 0.00 Capillary Refill : Less Than 3 Seconds I&O Intake and Output 05/21/23 00:00 Intake Total 2290 ml Output Total 7750 ml Balance -5460 ml Intake Oral 2220 ml IV Total 70 ml Output Urine Total 7750 ml # Bowel Movements 1 General: Alert, Oriented X3, Cooperative, No Acute Distress Results Lab Laboratory Tests 05/21/23 05:43: White Blood Count 4.2L, Red Blood Count 4.12L, Hemoglobin 12.0L, Hematocrit 37L, Mean Corpuscular Volume 91, Mean Corpuscular Hemoglobin 29, Mean Corpuscular Hemoglobin Concent 32, Red Cell Distribution Width 22.7H, Platelet Count 266, Mean Platelet Volume 9.0, Immature Granulocyte % (Auto) 1, Neutrophils (%) (Auto) 49, Lymphocytes (%) (Auto) 34, Monocytes (%) (Auto) 10, Eosinophils (%) (Auto) 6, Basophils (%) (Auto) 1, Neutrophils # (Auto) 2.0, Lymphocytes # (Auto) 1.4, Monocytes # (Auto) 0.4, Eosinophils # (Auto) 0.2, Basophils # (Auto) 0.0, Immature Granulocyte # (Auto) 0.0, Sodium Level 134L, Potassium Level 5.1H, Chloride Level 104, Carbon Dioxide Level 22, Anion Gap 8, Blood Urea Nitrogen 10, Creatinine 0.54L, Estimat Glomerular Filtration Rate 127, BUN/Creatinine Ratio 19, Glucose Level 104, Calcium Level 8.3L, Corrected Calcium 9.5, Magnesium Level 2.0, Total Bilirubin 0.2, Aspartate Amino Transf (AST/SGOT) 13, Alanine Aminotransferase (ALT/SGPT) 6, Alkaline Phosphatase 104, Total Protein 5.6L, Albumin 2.5L Microbiology 05/13/23 MRSA Screen - Final, Complete MRSA not isolated 05/13/23 Urine Culture - Final, Complete NO GROWTH 05/13/23 Gram Stain - Final, Complete 05/13/23 Wound Culture - Final, Complete Pseudomonas aeruginosa Mixed Bacterial Aleta 05/13/23 Blood Culture - Final, Complete Staph, Coag Neg (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
[2023-05-21 15:48] VITALS: BP 95/62
--- NOTE | 2023-05-21 18:36 | Progress Note - Surgery ---
Subjective Date Seen by a Provider: May 21, 2023 Time Seen by a Provider: 18:32 Subjective/Events-last exam Doing well. Swelling in legs abdomen scrotum almost completely resolved. Feeling better. Wants to heal completely. No new complaints. Denies n/v fever sweats chills shortness of breath or chest pain. Objective Exam Vital Signs Date Time Temp Pulse Resp B/P (MAP) Pulse Ox O2 Delivery O2 Flow Rate FiO2 05/21/23 15:48 36.4 65 19 95/62 (73) 96 Room Air 05/21/23 08:03 36.6 74 18 104/74 (84) 97 Room Air 05/21/23 08:00 97 Room Air 05/21/23 03:55 37.1 74 18 105/68 (80) 98 Room Air 05/20/23 23:25 36.4 67 16 99/64 (76) 97 Room Air 05/20/23 19:45 Room Air I & O 05/21/23 07:00 Intake Total 2810 ml Output Total 5650 ml Balance -2840 ml Capillary Refill : Less Than 3 Seconds General Appearance: No Apparent Distress, WD/WN HEENT: PERRL/EOMI, Moist Mucous Membranes Neck: Non Tender, Supple Respiratory: Chest Non Tender, No Accessory Muscle Use, No Respiratory Distress Cardiovascular: Regular Rate, Rhythm, No JVD Gastrointestinal: non tender, soft, other (left lower abdomen swelling-minimal) Extremity: Swelling (minimal), Other (bl AKA) Neurologic/Psychiatric: Alert, Oriented x3 Skin: Other (ulcerative lesions on posterior thighs) Lymphatic: No Adenopathy Results Lab Laboratory Tests 05/21/23 05:43: White Blood Count 4.2L, Red Blood Count 4.12L, Hemoglobin 12.0L, Hematocrit 37L, Mean Corpuscular Volume 91, Mean Corpuscular Hemoglobin 29, Mean Corpuscular Hemoglobin Concent 32, Red Cell Distribution Width 22.7H, Platelet Count 266, Mean Platelet Volume 9.0, Immature Granulocyte % (Auto) 1, Neutrophils (%) (Auto) 49, Lymphocytes (%) (Auto) 34, Monocytes (%) (Auto) 10, Eosinophils (%) (Auto) 6, Basophils (%) (Auto) 1, Neutrophils # (Auto) 2.0, Lymphocytes # (Auto) 1.4, Monocytes # (Auto) 0.4, Eosinophils # (Auto) 0.2, Basophils # (Auto) 0.0, Immature Granulocyte # (Auto) 0.0, Sodium Level 134L, Potassium Level 5.1H, Chloride Level 104, Carbon Dioxide Level 22, Anion Gap 8, Blood Urea Nitrogen 10, Creatinine 0.54L, Estimat Glomerular Filtration Rate 127, BUN/Creatinine Ratio 19, Glucose Level 104, Calcium Level 8.3L, Corrected Calcium 9.5, Magnesium Level 2.0, Total Bilirubin 0.2, Aspartate Amino Transf (AST/SGOT) 13, Alanine Aminotransferase (ALT/SGPT) 6, Alkaline Phosphatase 104, Total Protein 5.6L, Albumin 2.5L Microbiology 05/13/23 MRSA Screen - Final, Complete MRSA not isolated 05/13/23 Urine Culture - Final, Complete NO GROWTH 05/13/23 Gram Stain - Final, Complete 05/13/23 Wound Culture - Final, Complete Pseudomonas aeruginosa Mixed Bacterial Aleta 05/13/23 Blood Culture - Final, Complete Staph, Coag Neg (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 He is still ok with going to possible LTAC for longer-term care. Social work which will work on options-referral sent awaiting eval not able to come today-planning tomorrow Patient with multiple admission for same care needs and with noncompliance at home this cycle will continue. Abdomen improved no discomfort/swelling. Continue wound care. No surgical intervention at this time. Discussed trying to increase activities CHASE GONZALEZ DO May 21, 2023 18:36
[2023-05-21 23:45] VITALS: BP 110/54
[2023-05-22 06:00] LABS: BASOPHILS # (AUTO) 0.1 10^3/uL (0.0-0.1); BASOPHILS % (AUTO) 1 % (0-10); EOSINOPHILS # (AUTO) 0.2 10^3/uL (0.0-0.3); EOSINOPHILS % (AUTO) 5 % (0-10); HEMATOCRIT 38 % (40-54); HEMOGLOBIN 12.1 g/dL (13.3-17.7); LYMPHOCYTES # (AUTO) 1.8 10^3/uL (1.0-4.0); LYMPHOCYTES % (AUTO) 38 % (12-44); MEAN CORPUSCULAR HEMOGLOBIN 29 pg (25-34); MEAN CORPUSCULAR HGB CONC 32 g/dL (32-36); MEAN CORPUSCULAR VOLUME 90 fL (80-99); MONOCYTES # (AUTO) 0.5 10^3/uL (0.0-1.0); MONOCYTES % (AUTO) 10 % (0-12); NEUTROPHILS # (AUTO) 2.1 10^3/uL (1.8-7.8); NEUTROPHILS % (AUTO) 46 % (42-75); PLATELET COUNT 269 10^3/uL (130-400); WHITE BLOOD COUNT 4.7 10^3/uL (4.3-11.0)
[2023-05-22 06:12] LABS: ALBUMIN 2.8 GM/DL (3.2-4.5)
[2023-05-22 06:13] LABS: POTASSIUM 4.9 MMOL/L (3.6-5.0)
[2023-05-22 06:14] LABS: CALCIUM 8.5 MG/DL (8.5-10.1)
[2023-05-22 06:17] LABS: BILIRUBIN,TOTAL 0.2 MG/DL (0.1-1.0)
[2023-05-22 06:18] LABS: CREATININE SERUM 0.58 MG/DL (0.60-1.30)
[2023-05-22 06:21] LABS: MAGNESIUM 2.1 MG/DL (1.6-2.4)
[2023-05-22 07:48] VITALS: BP 113/68
[2023-05-22] MEDS: SENNA W/DOCUSATE (SENOKOT S) TABLET PO SCH ×2 (08:38→21:50)
[2023-05-22] MEDS: polyethylene glycoL POWDER 17 GM (MIRALAX) PACK PO SCH ×2 (08:38→21:50)
[2023-05-22] MEDS: PATCH REMOVAL TP SCH (08:39)
[2023-05-22] MEDS: CEFEPIME 2,000 MG/NS 50 ML IVPB IV SCH ×4 (08:45→20:22)
[2023-05-22] MEDS: NICOTINE 21 MG (NICODERM) PATCH TD SCH (08:45)
[2023-05-22] MEDS: MICONAZOLE 2% POWDER (DESENEX AF) 90 GM TOP SCH ×2 (08:47→20:22)
[2023-05-22] MEDS: ENOXAPARIN 40 MG/0.4 ML SYRINGE SC SCH (11:33)
--- NOTE | 2023-05-22 11:37 | Progress Note ---
Subjective Date Seen by a Provider: May 22, 2023 Time Seen by a Provider: 11:30 Subjective/Events-last exam Awaiting LTAC decision Monitoring closely Objective Exam Last Set of Vital Signs Vital Signs Date Time Temp Pulse Resp B/P (MAP) Pulse Ox O2 Delivery O2 Flow Rate FiO2 05/22/23 07:48 37.4 73 20 113/68 (83) 96 Room Air 05/18/23 04:00 0.00 0.00 Capillary Refill : Less Than 3 Seconds I&O Intake and Output 05/22/23 00:00 Intake Total 2180 ml Output Total 5850 ml Balance -3670 ml Intake Oral 2080 ml IV Total 100 ml Output Urine Total 5850 ml # Bowel Movements 1 General: Alert, Oriented X3, Cooperative, No Acute Distress Results Lab Laboratory Tests 05/22/23 05:40: White Blood Count 4.7, Red Blood Count 4.15L, Hemoglobin 12.1L, Hematocrit 38L, Mean Corpuscular Volume 90, Mean Corpuscular Hemoglobin 29, Mean Corpuscular Hemoglobin Concent 32, Red Cell Distribution Width 22.2H, Platelet Count 269, Mean Platelet Volume 9.0, Immature Granulocyte % (Auto) 1, Neutrophils (%) (Auto) 46, Lymphocytes (%) (Auto) 38, Monocytes (%) (Auto) 10, Eosinophils (%) (Auto) 5, Basophils (%) (Auto) 1, Neutrophils # (Auto) 2.1, Lymphocytes # (Auto) 1.8, Monocytes # (Auto) 0.5, Eosinophils # (Auto) 0.2, Basophils # (Auto) 0.1, Immature Granulocyte # (Auto) 0.1, Sodium Level 134L, Potassium Level 4.9, Chloride Level 103, Carbon Dioxide Level 24, Anion Gap 7, Blood Urea Nitrogen 11, Creatinine 0.58L, Estimat Glomerular Filtration Rate 124, BUN/Creatinine Ratio 19, Glucose Level 66L, Calcium Level 8.5, Corrected Calcium 9.5, Magnesium Level 2.1, Total Bilirubin 0.2, Aspartate Amino Transf (AST/SGOT) 14, Alanine Aminotransferase (ALT/SGPT) 6, Alkaline Phosphatase 92, Total Protein 6.0L, Albumin 2.8L Microbiology 05/13/23 MRSA Screen - Final, Complete MRSA not isolated 05/13/23 Urine Culture - Final, Complete NO GROWTH 05/13/23 Gram Stain - Final, Complete 05/13/23 Wound Culture - Final, Complete Pseudomonas aeruginosa Mixed Bacterial Aleta 05/13/23 Blood Culture - Final, Complete Staph, Coag Neg (TUB OPERATOR) Assessment/Plan Assessment/Plan Assess & Plan/Chief Complaint Assessment: Bilateral cellulitis thighs B/L lower extremity amputations Plan: Monitor bowels Await dispo ATIF LIND DO May 22, 2023 11:37
[2023-05-22 15:46] VITALS: BP 105/51
--- NOTE | 2023-05-22 17:19 | Progress Note - Surgery ---
Subjective Date Seen by a Provider: May 22, 2023 Time Seen by a Provider: 17:17 Subjective/Events-last exam Patient doing well he states. Met with LTAC still wanting to proceed if possible. Abdomen and stumps feeling better. Tolerating wound care. Denies n/v fever sweats chills shortness of breath or chest pain. Objective Exam Vital Signs Date Time Temp Pulse Resp B/P (MAP) Pulse Ox O2 Delivery O2 Flow Rate FiO2 05/22/23 15:46 36.8 71 18 105/51 (69) 95 Room Air 05/22/23 08:00 Room Air 05/22/23 07:48 37.4 73 20 113/68 (83) 96 Room Air 05/21/23 23:45 36.1 64 18 110/54 (72) 97 Room Air 05/21/23 20:25 Room Air I & O 05/22/23 07:00 Intake Total 3500 ml Output Total 6550 ml Balance -3050 ml Capillary Refill : Less Than 3 Seconds General Appearance: No Apparent Distress, WD/WN HEENT: PERRL/EOMI, Moist Mucous Membranes Neck: Non Tender, Supple Respiratory: Chest Non Tender, No Accessory Muscle Use, No Respiratory Distress Cardiovascular: Regular Rate, Rhythm, No JVD Gastrointestinal: non tender, soft, other (left lower abdomen swelling-minimal) Extremity: Swelling (minimal), Other (bl AKA) Neurologic/Psychiatric: Alert, Oriented x3 Skin: Normal Color, Other (ulcerative lesions on posterior thighs) Lymphatic: No Adenopathy Results Lab Laboratory Tests 05/22/23 05:40: White Blood Count 4.7, Red Blood Count 4.15L, Hemoglobin 12.1L, Hematocrit 38L, Mean Corpuscular Volume 90, Mean Corpuscular Hemoglobin 29, Mean Corpuscular Hemoglobin Concent 32, Red Cell Distribution Width 22.2H, Platelet Count 269, Mean Platelet Volume 9.0, Immature Granulocyte % (Auto) 1, Neutrophils (%) (Auto) 46, Lymphocytes (%) (Auto) 38, Monocytes (%) (Auto) 10, Eosinophils (%) (Auto) 5, Basophils (%) (Auto) 1, Neutrophils # (Auto) 2.1, Lymphocytes # (Auto) 1.8, Monocytes # (Auto) 0.5, Eosinophils # (Auto) 0.2, Basophils # (Auto) 0.1, Immature Granulocyte # (Auto) 0.1, Sodium Level 134L, Potassium Level 4.9, Chloride Level 103, Carbon Dioxide Level 24, Anion Gap 7, Blood Urea Nitrogen 11, Creatinine 0.58L, Estimat Glomerular Filtration Rate 124, BUN/Creatinine Ratio 19, Glucose Level 66L, Calcium Level 8.5, Corrected Calcium 9.5, Magnesium Level 2.1, Total Bilirubin 0.2, Aspartate Amino Transf (AST/SGOT) 14, Alanine Aminotransferase (ALT/SGPT) 6, Alkaline Phosphatase 92, Total Protein 6.0L, A lbumin 2.8L Microbiology 05/13/23 MRSA Screen - Final, Complete MRSA not isolated 05/13/23 Urine Culture - Final, Complete NO GROWTH 05/13/23 Gram Stain - Final, Complete 05/13/23 Wound Culture - Final, Complete Pseudomonas aeruginosa Mixed Bacterial Aleta 05/13/23 Blood Culture - Final, Complete Staph, Coag Neg (PICTURE PAINTER) Assessment/Plan Assessment/Plan Assessment/Plan b/l lower extremity pain b/l lower extremity swelling b/l lower extremity chronic wounds history of b/l AKA hypokalemia now hyperkalemia-monitor poor compliance with follow up lower abdominal wall swelling-improved Patient discussed care needs which he is not able to have at home. He is still ok with going to possible LTAC for longer-term care. Social work which will work on options-referral sent awaiting acceptance Patient with multiple admission for same care needs and with noncompliance at home this cycle will continue. Abdomen improved no discomfort/swelling. Continue wound care. No surgical intervention at this time. Discussed trying to increase activities Will sign off, call if needed CHASE GONZALEZ DO May 22, 2023 17:19
[2023-05-22 23:22] VITALS: BP 94/52
[2023-05-22] MEDS: HYPOCHLOROUS ACID/NaCl (VASHE) 250 ML IR PRN (23:30)
--- NOTE | 2023-05-23 05:11 | Progress Note ---
Subjective Date Seen by a Provider: May 23, 2023 Time Seen by a Provider: 11:00 Subjective/Events-last exam Awaiting insurance approval for [facility] Patient in room sleeping Objective Exam Last Set of Vital Signs Vital Signs Date Time Temp Pulse Resp B/P (MAP) Pulse Ox O2 Delivery O2 Flow Rate FiO2 05/22/23 23:22 36.3 71 16 94/52 (66) 99 Room Air 05/18/23 04:00 0.00 0.00 Capillary Refill : Less Than 3 Seconds I&O Intake and Output 05/23/23 00:00 Intake Total 4050 ml Output Total 5900 ml Balance -1850 ml Intake Oral 4000 ml IV Total 50 ml Output Urine Total 5900 ml # Bowel Movements 1 Results Lab Laboratory Tests 05/22/23 05:40: White Blood Count 4.7, Red Blood Count 4.15L, Hemoglobin 12.1L, Hematocrit 38L, Mean Corpuscular Volume 90, Mean Corpuscular Hemoglobin 29, Mean Corpuscular Hemoglobin Concent 32, Red Cell Distribution Width 22.2H, Platelet Count 269, Mean Platelet Volume 9.0, Immature Granulocyte % (Auto) 1, Neutrophils (%) (Auto) 46, Lymphocytes (%) (Auto) 38, Monocytes (%) (Auto) 10, Eosinophils (%) (Auto) 5, Basophils (%) (Auto) 1, Neutrophils # (Auto) 2.1, Lymphocytes # (Auto) 1.8, Monocytes # (Auto) 0.5, Eosinophils # (Auto) 0.2, Basophils # (Auto) 0.1, Immature Granulocyte # (Auto) 0.1, Sodium Level 134L, Potassium Level 4.9, Chloride Level 103, Carbon Dioxide Level 24, Anion Gap 7, Blood Urea Nitrogen 11, Creatinine 0.58L, Estimat Glomerular Filtration Rate 124, BUN/Creatinine Ratio 19, Glucose Level 66L, Calcium Level 8.5, Corrected Calcium 9.5, Magnesium Level 2.1, Total Bilirubin 0.2, Aspartate Amino Transf (AST/SGOT) 14, Alanine Aminotransferase (ALT/SGPT) 6, Alkaline Phosphatase 92, Total Protein 6.0L, Albumin 2.8L 05/23/23 05:05: Microbiology 05/13/23 MRSA Screen - Final, Complete MRSA not isolated 05/13/23 Urine Culture - Final, Complete NO GROWTH 05/13/23 Gram Stain - Final, Complete 05/13/23 Wound Culture - Final, Complete Pseudomonas aeruginosa Mixed Bacterial Aleta 05/13/23 Blood Culture - Final, Complete Staph, Coag Neg (CABIN SUPERVISOR) Assessment/Plan Assessment/Plan Assess & Plan/Chief Complaint Assessment: Bilateral cellulitis thighs B/L lower extremity amputations Plan: Monitor bowels Await dispo ATIF LIND DO May 23, 2023 05:11
[2023-05-23 05:12] LABS: BASOPHILS # (AUTO) 0.1 10^3/uL (0.0-0.1); BASOPHILS % (AUTO) 1 % (0-10); EOSINOPHILS # (AUTO) 0.2 10^3/uL (0.0-0.3); EOSINOPHILS % (AUTO) 5 % (0-10); HEMATOCRIT 38 % (40-54); HEMOGLOBIN 12.3 g/dL (13.3-17.7); LYMPHOCYTES # (AUTO) 1.7 10^3/uL (1.0-4.0); LYMPHOCYTES % (AUTO) 40 % (12-44); MEAN CORPUSCULAR HEMOGLOBIN 29 pg (25-34); MEAN CORPUSCULAR HGB CONC 33 g/dL (32-36); MEAN CORPUSCULAR VOLUME 90 fL (80-99); MONOCYTES # (AUTO) 0.4 10^3/uL (0.0-1.0); MONOCYTES % (AUTO) 10 % (0-12); NEUTROPHILS # (AUTO) 1.8 10^3/uL (1.8-7.8); NEUTROPHILS % (AUTO) 42 % (42-75); PLATELET COUNT 260 10^3/uL (130-400); WHITE BLOOD COUNT 4.3 10^3/uL (4.3-11.0)
[2023-05-23 05:25] LABS: POTASSIUM 4.4 MMOL/L (3.6-5.0)
[2023-05-23 05:26] LABS: CALCIUM 8.7 MG/DL (8.5-10.1)
[2023-05-23 05:28] LABS: TOTAL PROTEIN 6.3 GM/DL (6.4-8.2)
[2023-05-23 05:29] LABS: BILIRUBIN,TOTAL 0.2 MG/DL (0.1-1.0)
[2023-05-23 05:31] LABS: CREATININE SERUM 0.64 MG/DL (0.60-1.30)
[2023-05-23 05:34] LABS: MAGNESIUM 1.9 MG/DL (1.6-2.4)
[2023-05-23 07:25] VITALS: BP 100/66
[2023-05-23] MEDS: NICOTINE 21 MG (NICODERM) PATCH TD SCH (08:55)
[2023-05-23] MEDS: PATCH REMOVAL TP SCH (08:55)
[2023-05-23] MEDS: ENOXAPARIN 40 MG/0.4 ML SYRINGE SC SCH (08:56)
[2023-05-23] MEDS: polyethylene glycoL POWDER 17 GM (MIRALAX) PACK PO SCH ×2 (08:56→21:41)
[2023-05-23] MEDS: SENNA W/DOCUSATE (SENOKOT S) TABLET PO SCH ×2 (08:56→21:41)
[2023-05-23] MEDS: CEFEPIME 2,000 MG/NS 50 ML IVPB IV SCH ×4 (08:56→21:41)
[2023-05-23] MEDS: MICONAZOLE 2% POWDER (DESENEX AF) 90 GM TOP SCH ×2 (08:57→21:41)
[2023-05-23 15:16] VITALS: BP 105/69
[2023-05-23 19:22] VITALS: BP 104/57
[2023-05-24 00:23] VITALS: BP 121/64
[2023-05-24 05:18] LABS: BASOPHILS # (AUTO) 0.1 10^3/uL (0.0-0.1); BASOPHILS % (AUTO) 2 % (0-10); EOSINOPHILS # (AUTO) 0.2 10^3/uL (0.0-0.3); EOSINOPHILS % (AUTO) 5 % (0-10); HEMATOCRIT 36 % (40-54); HEMOGLOBIN 11.8 g/dL (13.3-17.7); LYMPHOCYTES # (AUTO) 1.7 10^3/uL (1.0-4.0); LYMPHOCYTES % (AUTO) 38 % (12-44); MEAN CORPUSCULAR HEMOGLOBIN 30 pg (25-34); MEAN CORPUSCULAR HGB CONC 33 g/dL (32-36); MEAN CORPUSCULAR VOLUME 91 fL (80-99); MEAN PLATELET VOLUME 8.8 fL (9.0-12.2); MONOCYTES # (AUTO) 0.4 10^3/uL (0.0-1.0); MONOCYTES % (AUTO) 9 % (0-12); NEUTROPHILS % (AUTO) 45 % (42-75); PLATELET COUNT 238 10^3/uL (130-400); WHITE BLOOD COUNT 4.4 10^3/uL (4.3-11.0)
[2023-05-24 05:30] LABS: POTASSIUM 4.1 MMOL/L (3.6-5.0)
[2023-05-24 05:32] LABS: CALCIUM 8.4 MG/DL (8.5-10.1)
[2023-05-24 05:35] LABS: BILIRUBIN,TOTAL 0.2 MG/DL (0.1-1.0)
[2023-05-24 05:36] LABS: CREATININE SERUM 0.58 MG/DL (0.60-1.30)
[2023-05-24 05:39] LABS: MAGNESIUM 1.8 MG/DL (1.6-2.4)
--- NOTE | 2023-05-24 06:42 | Progress Note ---
Subjective Date Seen by a Provider: May 24, 2023 Time Seen by a Provider: 11:00 Subjective/Events-last exam No major changes Sleeps most of the time Objective Exam Last Set of Vital Signs Vital Signs Date Time Temp Pulse Resp B/P (MAP) Pulse Ox O2 Delivery O2 Flow Rate FiO2 05/24/23 00:23 36.5 75 18 121/64 (83) 98 Room Air 0.00 0.00 Capillary Refill : Less Than 3 Seconds I&O Intake and Output 05/24/23 00:00 Intake Total 3648 ml Output Total 3675 ml Balance -27 ml Intake Oral 3648 ml Output Urine Total 3675 ml # Bowel Movements 1 General: No Acute Distress, Other Lungs: Clear to Auscultation Heart: Regular Rate Results Lab Laboratory Tests 05/24/23 05:00: White Blood Count 4.4, Red Blood Count 4.00L, Hemoglobin 11.8L, Hematocrit 36L, Mean Corpuscular Volume 91, Mean Corpuscular Hemoglobin 30, Mean Corpuscular Hemoglobin Concent 33, Red Cell Distribution Width 21.9H, Platelet Count 238, Mean Platelet Volume 8.8L, Immature Granulocyte % (Auto) 1, Neutrophils (%) (Auto) 45, Lymphocytes (%) (Auto) 38, Monocytes (%) (Auto) 9, Eosinophils (%) (Auto) 5, Basophils (%) (Auto) 2, Neutrophils # (Auto) 2.0, Lymphocytes # (Auto) 1.7, Monocytes # (Auto) 0.4, Eosinophils # (Auto) 0.2, Basophils # (Auto) 0.1, Immature Granulocyte # (Auto) 0.0, Sodium Level 134L, Potassium Level 4.1, Chloride Level 105, Carbon Dioxide Level 22, Anion Gap 7, Blood Urea Nitrogen 12, Creatinine 0.58L, Estimat Glomerular Filtration Rate 124, BUN/Creatinine Ratio 21, Glucose Level 110H, Calcium Level 8.4L, Corrected Calcium 9.2, Magnesium Level 1.8, Total Bilirubin 0.2, Aspartate Amino Transf (AST/SGOT) 24, Alanine Aminotransferase (ALT/SGPT) 13, Alkaline Phosphatase 75, Total Protein 6.0L, Albumin 3.0L Microbiology 05/13/23 MRSA Screen - Final, Complete MRSA not isolated 05/13/23 Urine Culture - Final, Complete NO GROWTH 05/13/23 Gram Stain - Final, Complete 05/13/23 Wound Culture - Final, Complete Pseudomonas aeruginosa Mixed Bacterial Aleta 05/13/23 Blood Culture - Final, Complete Staph, Coag Neg (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
[2023-05-24 08:06] VITALS: BP 108/52
[2023-05-24] MEDS: PATCH REMOVAL TP SCH (09:03)
[2023-05-24] MEDS: SENNA W/DOCUSATE (SENOKOT S) TABLET PO SCH ×2 (09:03→20:44)
[2023-05-24] MEDS: CEFEPIME 2,000 MG/NS 50 ML IVPB IV SCH ×4 (09:04→21:09)
[2023-05-24] MEDS: polyethylene glycoL POWDER 17 GM (MIRALAX) PACK PO SCH ×2 (09:04→20:44)
[2023-05-24] MEDS: MICONAZOLE 2% POWDER (DESENEX AF) 90 GM TOP SCH ×2 (09:04→21:10)
[2023-05-24] MEDS: NICOTINE 21 MG (NICODERM) PATCH TD SCH (09:05)
[2023-05-24] MEDS: CYCLOBENZAPRINE 10 MG TABLET PO PRN (09:05)
[2023-05-24] MEDS: ENOXAPARIN 40 MG/0.4 ML SYRINGE SC SCH (09:05)
[2023-05-24 16:11] VITALS: BP 100/50
[2023-05-25] VITALS: BP 112/65
--- NOTE | 2023-05-25 06:44 | Progress Note ---
Subjective Date Seen by a Provider: May 25, 2023 Time Seen by a Provider: 11:00 Subjective/Events-last exam No new issues Bowels are moving Objective Exam Last Set of Vital Signs Vital Signs Date Time Temp Pulse Resp B/P (MAP) Pulse Ox O2 Delivery O2 Flow Rate FiO2 05/25/23 00:00 36.1 70 18 112/65 (81) 98 Room Air 05/24/23 00:23 0.00 0.00 Capillary Refill : Less Than 3 Seconds I&O Intake and Output 05/25/23 00:00 Intake Total 3034 ml Output Total 4000 ml Balance -966 ml Intake Oral 2884 ml IV Total 150 ml Output Urine Total 4000 ml # Bowel Movements 2 General: Alert, Oriented X3, Cooperative, No Acute Distress Psych/Mental Status: Mental Status NL, Mood NL Results Lab Microbiology 05/13/23 MRSA Screen - Final, Complete MRSA not isolated 05/13/23 Urine Culture - Final, Complete NO GROWTH 05/13/23 Gram Stain - Final, Complete 05/13/23 Wound Culture - Final, Complete Pseudomonas aeruginosa Mixed Bacterial Aleta 05/13/23 Blood Culture - Final, Complete Staph, Coag Neg (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
[2023-05-25 08:07] VITALS: BP 107/66
[2023-05-25] MEDS: CEFEPIME 2,000 MG/NS 50 ML IVPB IV SCH ×4 (08:17→20:30)
[2023-05-25] MEDS: NICOTINE 21 MG (NICODERM) PATCH TD SCH (08:17)
[2023-05-25] MEDS: ENOXAPARIN 40 MG/0.4 ML SYRINGE SC SCH (08:17)
[2023-05-25] MEDS: SENNA W/DOCUSATE (SENOKOT S) TABLET PO SCH ×2 (08:18→19:22)
[2023-05-25] MEDS: MICONAZOLE 2% POWDER (DESENEX AF) 90 GM TOP SCH ×2 (08:18→20:30)
[2023-05-25] MEDS: PATCH REMOVAL TP SCH (08:18)
[2023-05-25] MEDS: polyethylene glycoL POWDER 17 GM (MIRALAX) PACK PO SCH ×2 (08:18→19:21)
[2023-05-25 16:03] VITALS: BP 119/56
[2023-05-25 23:24] VITALS: BP 103/65
--- NOTE | 2023-05-26 06:28 | Progress Note ---
Subjective Date Seen by a Provider: May 26, 2023 Time Seen by a Provider: 09:00 Subjective/Events-last exam Much improved No pain reported Awaiting insurance approval for LTAC Objective Exam Last Set of Vital Signs Vital Signs Date Time Temp Pulse Resp B/P (MAP) Pulse Ox O2 Delivery O2 Flow Rate FiO2 05/25/23 23:24 36.4 74 18 103/65 (78) 98 Room Air 0.00 0.00 Capillary Refill : Less Than 3 Seconds I&O Intake and Output 05/26/23 00:00 Intake Total 3610 ml Output Total 5250 ml Balance -1640 ml Intake Oral 3610 ml Output Urine Total 5250 ml # Bowel Movements 2 General: Alert, Oriented X3, Cooperative, No Acute Distress Psych/Mental Status: Mental Status NL, Mood NL Results Lab Microbiology 05/13/23 MRSA Screen - Final, Complete MRSA not isolated 05/13/23 Urine Culture - Final, Complete NO GROWTH 05/13/23 Gram Stain - Final, Complete 05/13/23 Wound Culture - Final, Complete Pseudomonas aeruginosa Mixed Bacterial Aleta 05/13/23 Blood Culture - Final, Complete Staph, Coag Neg (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
[2023-05-26 07:28] VITALS: BP 126/64
[2023-05-26] MEDS: SENNA W/DOCUSATE (SENOKOT S) TABLET PO SCH ×2 (07:43→19:11)
[2023-05-26] MEDS: polyethylene glycoL POWDER 17 GM (MIRALAX) PACK PO SCH ×2 (07:43→19:11)
[2023-05-26] MEDS: PATCH REMOVAL TP SCH (08:48)
[2023-05-26] MEDS: NICOTINE 21 MG (NICODERM) PATCH TD SCH (08:48)
[2023-05-26] MEDS: CEFEPIME 2,000 MG/NS 50 ML IVPB IV SCH ×4 (08:48→19:41)
[2023-05-26] MEDS: MICONAZOLE 2% POWDER (DESENEX AF) 90 GM TOP SCH ×2 (08:55→19:41)
[2023-05-26] MEDS: ENOXAPARIN 40 MG/0.4 ML SYRINGE SC SCH (10:06)
[2023-05-26 15:39] VITALS: BP 106/70
[2023-05-26 23:07] VITALS: BP 100/62
[2023-05-27 07:19] VITALS: BP 135/65
[2023-05-27] MEDS: NICOTINE 21 MG (NICODERM) PATCH TD SCH (08:31)
[2023-05-27] MEDS: CEFEPIME 2,000 MG/NS 50 ML IVPB IV SCH ×2 (08:31)
[2023-05-27] MEDS: PATCH REMOVAL TP SCH (08:32)
[2023-05-27] MEDS: polyethylene glycoL POWDER 17 GM (MIRALAX) PACK PO SCH (08:32)
[2023-05-27] MEDS: SENNA W/DOCUSATE (SENOKOT S) TABLET PO SCH (08:32)
[2023-05-27] MEDS: MICONAZOLE 2% POWDER (DESENEX AF) 90 GM TOP SCH (08:32)
[2023-05-27] MEDS: ENOXAPARIN 40 MG/0.4 ML SYRINGE SC SCH (08:32)
[2023-05-27] MEDS ORDERED: MICO90PO TOP (09:32)
[2023-05-27] MEDS ORDERED: PREG75CA75 PO (09:32)
[2023-05-27] MEDS ORDERED: OXC5T PO (09:32)
--- NOTE | 2023-05-27 09:33 | Discharge Summary ---
Diagnosis/Chief Complaint Date of Admission May 13, 2023 at 05:44 Date of Discharge Discharge Date: May 27, 2023 Discharge Diagnosis Admission Dx Cellulitis Nonhealing wound Sepsis Lactic acidosis Possible UTI Bilateral wounds present on posterior thigh Afebrile and normal WBC count Sepsis criteria of tachycardia >90, RR>20, source on infection, and lactic acid of 2.9 Continue cefazolin 2gm IV q8hr Continue Vancomycin 1gm BID IV Vanc trough pending Wound culture pending Lactic acid normalized to 1.8 No signs of hemodynamic instability Continue IV fluids UA positive for WBCs and trace bacteria, culture pending Wound care consulted General surgery consulted Tele ICU consulted Appreciate recs from consult services Hypokalemia 2.1 in ED, fell to 1.9 in spite of replacement initiation Continue IV and oral replacement 80meq IV ordered for today 40 meq PO today Monitor K+ level Peripheral vascular disease Bilateral AKA Chronic tobacco abuse encourage smoking cessation needs established with PCP Hx of noncompliance to medication Diet- sodium restricted, 2gm per day DVT ppx- lovenox 40mg SQ daily Code status- full Discharge Summary Discharge Physical Examination Allergies: Coded Allergies: No Known Drug Allergies (Unverified , 08/04/21) He denies allergies to drugs and food, says he has seasonal allergies Vitals & I&Os Vital Signs Date Time Temp Pulse Resp B/P (MAP) Pulse Ox O2 Delivery O2 Flow Rate FiO2 05/27/23 12:00 05/27/23 08:00 Room Air 05/27/23 07:19 36.6 91 20 96 05/25/23 23:24 0.00 0.00 General Appearance: Alert, Oriented X3, Cooperative Respiratory: Clear to Auscultation Cardiovascular: Regular Rate Psych/Mental Status: Mental Status NL Hospital Course Was the Problem List Reviewed?: Yes Lengthy hospital course after he was admitted for recurrent cellulitis and sepsis placed on broad-spectrum antibiotics and he did complete antibiotics at time of discharge. He refused to go to a retirement due to still working and making an income. [facility] did approve him but insurance declined. Overall he was ready for discharge the most improved that we could obtain of his cellulitis and he was deemed stable for discharge home. Labs (last 24 hrs) Laboratory Tests 05/13/23 00:12: White Blood Count 7.1, Red Blood Count 4.59, Hemoglobin 13.1L, Hematocrit 40, Mean Corpuscular Volume 88, Mean Corpuscular Hemoglobin 29, Mean Corpuscular Hemoglobin Concent 33, Red Cell Distribution Width 22.0H, Platelet Count 236, Mean Platelet Volume 8.7L, Immature Granulocyte % (Auto) 1, Neutrophils (%) (Auto) 75, Lymphocytes (%) (Auto) 16, Monocytes (%) (Auto) 7, Eosinophils (%) (Auto) 1, Basophils (%) (Auto) 0, Neutrophils # (Auto) 5.3, Lymphocytes # (Auto) 1.1, Monocytes # (Auto) 0.5, Eosinophils # (Auto) 0.1, Basophils # (Auto) 0.0, Immature Granulocyte # (Auto) 0.0, Erythrocyte Sedimentation Rate 17H, Prothrombin Time 13.7, INR Comment 1.0, Activated Partial Thromboplast Time 34, Sodium Level 138, Potassium Level 2.1*L, Chloride Level 99, Carbon Dioxide Level 25, Anion Gap 14, Blood Urea Nitrogen 6L, Creatinine 0.56L, Estimat Glomerular Filtration Rate 125, BUN/Creatinine Ratio 11, Glucose Level 85, Lactic Acid Level 2.90*H, Calcium Level 7.8L, Corrected Calcium 8.8, Magnesium Level 1.8, Total Bilirubin 0.7, Aspartate Amino Transf (AST/SGOT) 26, Alanine Aminotransferase (ALT/SGPT) 19, Alkaline Phosphatase 149H, Total Protein 5.9L, Albumin 2.7L 05/13/23 01:00: Urine Color YELLOW, Urine Clarity CLEAR, Urine pH 6.5, Urine Specific [place] 1.020, Urine Protein 1+H, Urine Glucose (UA) NEGATIVE, Urine Ketones NEGATIVE, Urine Nitrite NEGATIVE, Urine Bilirubin 1+H, Urine Urobilinogen 2.0, Urine Leukocyte Esterase NEGATIVE, Urine RBC (Auto) NEGATIVE, Urine RBC 0-2, Urine WBC 5-10H, Urine Crystals NONE, Urine Bacteria TRACE, Urine Casts PRESENT, Urine Hyaline Casts 2-5H, Urine White Blood Cell Casts 0-2H, Urine Mucus SMALLH, Urine Culture Indicated CULTURE PENDING 05/13/23 02:26: Lactic Acid Level 1.82 05/13/23 05:44: Lab Scanned Report Referred Lab Report 05/13/23 06:02: White Blood Count 5.9, Red Blood Count 3.91L, Hemoglobin 11.2L, Hematocrit 34L, Mean Corpuscular Volume 86, Mean Corpuscular Hemoglobin 29, Mean Corpuscular Hemoglobin Concent 33, Red Cell Distribution Width 21.6H, Platelet Count 212, Mean Platelet Volume 8.9L, Immature Granulocyte % (Auto) 0, Neutrophils (%) (Auto) 63, Lymphocytes (%) (Auto) 25, Monocytes (%) (Auto) 9, Eosinophils (%) (Auto) 3, Basophils (%) (Auto) 0, Neutrophils # (Auto) 3.7, Lymphocytes # (Auto) 1.5, Monocytes # (Auto) 0.5, Eosinophils # (Auto) 0.2, Basophils # (Auto) 0.0, Immature Granulocyte # (Auto) 0.0, Sodium Level 138, Potassium Level 1.9*L, Chloride Level 103, Carbon Dioxide Level 25, Anion Gap 10, Blood Urea Nitrogen 5L, Creatinine 0.50L, Estimat Glomerular Filtration Rate 130, BUN/Creatinine Ratio 10, Glucose Level 82, Calcium Level 7.2L, Corrected Calcium 8.6, Phosphorus Level 2.7, Magnesium Level 1.5L, Total Bilirubin 0.6, Aspartate Amino Transf (AST/SGOT) 20, Alanine Aminotransferase (ALT/SGPT) 15, Alkaline Phosphatase 125, Total Protein 4.8L, Albumin 2.2L 05/13/23 14:44: Sodium Level 138, Potassium Level 2.1*L, Chloride Level 105, Carbon Dioxide Level 26, Anion Gap 7, Blood Urea Nitrogen 4L, Creatinine 0.50L, Estimat Glomerular Filtration Rate 130, BUN/Creatinine Ratio 8, Glucose Level 111H, Calcium Level 7.0L 05/14/23 03:50: White Blood Count 5.1, Red Blood Count 3.88L, Hemoglobin 11.2L, Hematocrit 35L, Mean Corpuscular Volume 89, Mean Corpuscular Hemoglobin 29, Mean Corpuscular Hemoglobin Concent 33, Red Cell Distribution Width 22.5H, Platelet Count 200, Mean Platelet Volume 9.5, Immature Granulocyte % (Auto) 0, Neutrophils (%) (Auto) 62, Lymphocytes (%) (Auto) 25, Monocytes (%) (Auto) 7, Eosinophils (%) (Auto) 5, Basophils (%) (Auto) 1, Neutrophils # (Auto) 3.2, Lymphocytes # (Auto) 1.3, Monocytes # (Auto) 0.4, Eosinophils # (Auto) 0.2, Basophils # (Auto) 0.0, Immature Granulocyte # (Auto) 0.0, Sodium Level 140, Potassium Level 2.7L, Chloride Level 107, Carbon Dioxide Level 23, Anion Gap 10, Blood Urea Nitrogen 3L, Creatinine 0.51L, Estimat Glomerular Filtration Rate 129, BUN/Creatinine Ratio 6, Glucose Level 100, Calcium Level 7.0L, Corrected Calcium 8.5, Phosphorus Level 1.9L, Magnesium Level 1.9, Total Bilirubin 0.3, Aspartate Amino Transf (AST/SGOT) 17, Alanine Aminotransferase (ALT/SGPT) 12, Alkaline Phosphatase 116, Total Protein 4.6L, Albumin 2.1L 05/14/23 08:50: Vancomycin Level Trough 13.2 05/15/23 05:06: White Blood Count 4.2L, Red Blood Count 3.63L, Hemoglobin 10.5L, Hematocrit 33L, Mean Corpuscular Volume 90, Mean Corpuscular Hemoglobin 29, Mean Corpuscular Hemoglobin Concent 32, Red Cell Distribution Width 22.3H, Platelet Count 188, Mean Platelet Volume 9.5, Immature Granulocyte % (Auto) 1, Neutrophils (%) (Auto) 53, Lymphocytes (%) (Auto) 33, Monocytes (%) (Auto) 7, Eosinophils (%) (Auto) 6, Basophils (%) (Auto) 1, Neutrophils # (Auto) 2.2, Lymphocytes # (Auto) 1.4, Monocytes # (Auto) 0.3, Eosinophils # (Auto) 0.2, Basophils # (Auto) 0.0, Immature Granulocyte # (Auto) 0.0, Sodium Level 139, Potassium Level 2.9L, Chloride Level 108H, Carbon Dioxide Level 24, Anion Gap 7, Blood Urea Nitrogen 2L, Creatinine 0.47L, Estimat Glomerular Filtration Rate 132, BUN/Creatinine Ratio 4, Glucose Level 87, Calcium Level 7.0L, Corrected Calcium 8.7, Magnesium Level 1.8, Total Bilirubin 0.3, Aspartate Amino Transf (AST/SGOT) 14, Alanine Aminotransferase (ALT/SGPT) 8, Alkaline Phosphatase 105, Total Protein 4.1L, Albumin 1.9L 05/16/23 05:44: White Blood Count 4.2L, Red Blood Count 3.81L, Hemoglobin 11.0L, Hematocrit 34L, Mean Corpuscular Volume 90, Mean Corpuscular Hemoglobin 29, Mean Corpuscular Hemoglobin Concent 32, Red Cell Distribution Width 22.5H, Platelet Count 194, Mean Platelet Volume 9.2, Immature Granulocyte % (Auto) 0, Neutrophils (%) (Auto) 54, Lymphocytes (%) (Auto) 33, Monocytes (%) (Auto) 7, Eosinophils (%) (Auto) 5, Basophils (%) (Auto) 1, Neutrophils # (Auto) 2.2, Lymphocytes # (Auto) 1.4, Monocytes # (Auto) 0.3, Eosinophils # (Auto) 0.2, Basophils # (Auto) 0.0, Immature Granulocyte # (Auto) 0.0, Sodium Level 139, Potassium Level 2.8L, Chloride Level 105, Carbon Dioxide Level 28, Anion Gap 6, Blood Urea Nitrogen 2L , Creatinine 0.45L, Estimat Glomerular Filtration Rate 134, BUN/Creatinine Ratio 4, Glucose Level 86, Calcium Level 7.2L, Corrected Calcium 8.8, Magnesium Level 1.7, Total Bilirubin 0.3, Aspartate Amino Transf (AST/SGOT) 16, Alanine Aminotransferase (ALT/SGPT) 8, Alkaline Phosphatase 106, Total Protein 4.5L, Albumin 2.0L 05/17/23 04:48: White Blood Count 3.7L, Red Blood Count 3.74L, Hemoglobin 10.8L, Hematocrit 34L, Mean Corpuscular Volume 90, Mean Corpuscular Hemoglobin 29, Mean Corpuscular Hemoglobin Concent 32, Red Cell Distribution Width 22.8H, Platelet Count 187, Mean Platelet Volume 9.0, Immature Granulocyte % (Auto) 1, Neutrophils (%) (Auto) 51, Lymphocytes (%) (Auto) 35, Monocytes (%) (Auto) 8, Eosinophils (%) (Auto) 5, Basophils (%) (Auto) 1, Neutrophils # (Auto) 1.9, Lymphocytes # (Auto) 1.3, Monocytes # (Auto) 0.3, Eosinophils # (Auto) 0.2, Basophils # (Auto) 0.0, Immature Granulocyte # (Auto) 0.0, Sodium Level 139, Potassium Level 3.8, Chloride Level 106, Carbon Dioxide Level 28, Anion Gap 5, Blood Urea Nitrogen 3L , Creatinine 0.51L, Estimat Glomerular Filtration Rate 129, BUN/Creatinine Ratio 6, Glucose Level 100, Calcium Level 7.3L, Corrected Calcium 9.0, Magnesium Level 1.5L, Total Bilirubin 0.2, Aspartate Amino Transf (AST/SGOT) 14, Alanine Aminotransferase (ALT/SGPT) 7, Alkaline Phosphatase 102, Total Protein 4.6L, Albumin 1.9L 05/18/23 05:59: White Blood Count 3.5L, Red Blood Count 3.75L, Hemoglobin 11.0L, Hematocrit 34L, Mean Corpuscular Volume 91, Mean Corpuscular Hemoglobin 29, Mean Corpuscular Hemoglobin Concent 32, Red Cell Distribution Width 22.6H, Platelet Count 190, Mean Platelet Volume 9.2, Immature Granulocyte % (Auto) 0, Neutrophils (%) (Auto) 47, Lymphocytes (%) (Auto) 38, Monocytes (%) (Auto) 8, Eosinophils (%) (Auto) 6, Basophils (%) (Auto) 1, Neutrophils # (Auto) 1.7L, Lymphocytes # (Auto) 1.3, Monocytes # (Auto) 0.3, Eosinophils # (Auto) 0.2, Basophils # (Auto) 0.0, Immature Granulocyte # (Auto) 0.0, Sodium Level 141, Potassium Level 4.0, Chloride Level 109H, Carbon Dioxide Level 24, Anion Gap 8, Blood Urea Nitrogen 4L, Creatinine 0.48L, Estimat Glomerular Filtration Rate 131, BUN/Creatinine Ratio 8, Glucose Level 94, Calcium Level 7.3L, Corrected Calcium 9.0, Magnesium Level 1.7, Total Bilirubin 0.2, Aspartate Amino Transf (AST/SGOT) 15, Alanine Aminotransferase (ALT/SGPT) < 6, Alkaline Phosphatase 94, Total Protein 4.4L, Albumin 1.9L 05/19/23 04:54: White Blood Count 4.1L, Red Blood Count 3.93L, Hemoglobin 11.6L, Hematocrit 36L, Mean Corpuscular Volume 90, Mean Corpuscular Hemoglobin 30, Mean Corpuscular Hemoglobin Concent 33, Red Cell Distribution Width 22.5H, Platelet Count 215, Mean Platelet Volume 9.2, Immature Granulocyte % (Auto) 1, Neutrophils (%) (Auto) 48, Lymphocytes (%) (Auto) 37, Monocytes (%) (Auto) 9, Eosinophils (%) (Auto) 5, Basophils (%) (Auto) 1, Neutrophils # (Auto) 2.0, Lymphocytes # (Auto) 1.5, Monocytes # (Auto) 0.4, Eosinophils # (Auto) 0.2, Basophils # (Auto) 0.0, Immature Granulocyte # (Auto) 0.0, Sodium Level 136, Potassium Level 4.6, Chloride Level 105, Carbon Dioxide Level 25, Anion Gap 6, Blood Urea Nitrogen 5L , Creatinine 0.51L, Estimat Glomerular Filtration Rate 129, BUN/Creatinine Ratio 10, Glucose Level 86, Calcium Level 7.8L, Corrected Calcium 9.3, Magnesium Level 1.7, Total Bilirubin 0.2, Aspartate Amino Transf (AST/SGOT) 16, Alanine Aminotransferase (ALT/SGPT) 7, Alkaline Phosphatase 99, Total Protein 5.0L, Albumin 2.1L 05/20/23 06:14: White Blood Count 4.0L, Red Blood Count 4.26L, Hemoglobin 12.2L, Hematocrit 39L, Mean Corpuscular Volume 90, Mean Corpuscular Hemoglobin 29, Mean Corpuscular Hemoglobin Concent 32, Red Cell Distribution Width 22.8H, Platelet Count 240, Mean Platelet Volume 9.2, Immature Granulocyte % (Auto) 1, Neutrophils (%) (A uto) 48, Lymphocytes (%) (Auto) 36, Monocytes (%) (Auto) 8, Eosinophils (%) (Auto) 6, Basophils (%) (Auto) 1, Neutrophils # (Auto) 1.9, Lymphocytes # (Auto) 1.4, Monocytes # (Auto) 0.3, Eosinophils # (Auto) 0.2, Basophils # (Auto) 0.1, Immature Granulocyte # (Auto) 0.0, Sodium Level 136, Potassium Level 5.2H, Chloride Level 105, Carbon Dioxide Level 24, Anion Gap 7, Blood Urea Nitrogen 6L , Creatinine 0.53L, Estimat Glomerular Filtration Rate 128, BUN/Creatinine Ratio 11, Glucose Level 92, Calcium Level 8.5, Corrected Calcium 9.9, Magnesium Level 2.1, Total Bilirubin 0.2, Aspartate Amino Transf (AST/SGOT) 15, Alanine Aminotransferase (ALT/SGPT) 7, Alkaline Phosphatase 108, Total Protein 5.4L, Albumin 2.3L 05/21/23 05:43: White Blood Count 4.2L, Red Blood Count 4.12L, Hemoglobin 12.0L, Hematocrit 37L, Mean Corpuscular Volume 91, Mean Corpuscular Hemoglobin 29, Mean Corpuscular Hemoglobin Concent 32, Red Cell Distribution Width 22.7H, Platelet Count 266, Mean Platelet Volume 9.0, Immature Granulocyte % (Auto) 1, Neutrophils (%) (Auto) 49, Lymphocytes (%) (Auto) 34, Monocytes (%) (Auto) 10, Eosinophils (%) (Auto) 6, Basophils (%) (Auto) 1, Neutrophils # (Auto) 2.0, Lymphocytes # (Auto) 1.4, Monocytes # (Auto) 0.4, Eosinophils # (Auto) 0.2, Basophils # (Auto) 0.0, Immature Granulocyte # (Auto) 0.0, Sodium Level 134L, Potassium Level 5.1H, Chloride Level 104, Carbon Dioxide Level 22, Anion Gap 8, Blood Urea Nitrogen 10, Creatinine 0.54L, Estimat Glomerular Filtration Rate 127, BUN/Creatinine Ratio 19, Glucose Level 104, Calcium Level 8.3L, Corrected Calcium 9.5, Magnesium Level 2.0, Total Bilirubin 0.2, Aspartate Amino Transf (AST/SGOT) 13, Alanine Aminotransferase (ALT/SGPT) 6, Alkaline Phosphatase 104, Total Protein 5.6L, Albumin 2.5L 05/22/23 05:40: White Blood Count 4.7, Red Blood Count 4.15L, Hemoglobin 12.1L, Hematocrit 38L, Mean Corpuscular Volume 90, Mean Corpuscular Hemoglobin 29, Mean Corpuscular Hemoglobin Concent 32, Red Cell Distribution Width 22.2H, Platelet Count 269, Mean Platelet Volume 9.0, Immature Granulocyte % (Auto) 1, Neutrophils (%) (Auto) 46, Lymphocytes (%) (Auto) 38, Monocytes (%) (Auto) 10, Eosinophils (%) (Auto) 5, Basophils (%) (Auto) 1, Neutrophils # (Auto) 2.1, Lymphocytes # (Auto) 1.8, Monocytes # (Auto) 0.5, Eosinophils # (Auto) 0.2, Basophils # (Auto) 0.1, Immature Granulocyte # (Auto) 0.1, Sodium Level 134L, Potassium Level 4.9, Chloride Level 103, Carbon Dioxide Level 24, Anion Gap 7, Blood Urea Nitrogen 11, Creatinine 0.58L, Estimat Glomerular Filtration Rate 124, BUN/Creatinine Ratio 19, Glucose Level 66L, Calcium Level 8.5, Corrected Calcium 9.5, Magnesium Level 2.1, Total Bilirubin 0.2, Aspartate Amino Transf (AST/SGOT) 14, Alanine Aminotransferase (ALT/SGPT) 6, Alkaline Phosphatase 92, Total Protein 6.0L, Albumin 2.8L 05/23/23 05:05: White Blood Count 4.3, Red Blood Count 4.18L, Hemoglobin 12.3L, Hematocrit 38L, Mean Corpuscular Volume 90, Mean Corpuscular Hemoglobin 29, Mean Corpuscular Hemoglobin Concent 33, Red Cell Distribution Width 22.3H, Platelet Count 260, Mean Platelet Volume 9.0, Immature Granulocyte % (Auto) 1, Neutrophils (%) (Auto) 42, Lymphocytes (%) (Auto) 40, Monocytes (%) (Auto) 10, Eosinophils (%) (Auto) 5, Basophils (%) (Auto) 1, Neutrophils # (Auto) 1.8, Lymphocytes # (Auto) 1.7, Monocytes # (Auto) 0.4, Eosinophils # (Auto) 0.2, Basophils # (Auto) 0.1, Immature Granulocyte # (Auto) 0.0, Sodium Level 134L, Potassium Level 4.4, Chloride Level 104, Carbon Dioxide Level 22, Anion Gap 8, Blood Urea Nitrogen 13, Creatinine 0.64, Estimat Glomerular Filtration Rate 120, BUN/Creatinine Ratio 20, Glucose Level 113H, Calcium Level 8.7, Corrected Calcium 9.5, Magnesium Level 1.9, Total Bilirubin 0.2, Aspartate Amino Transf (AST/SGOT) 17, Alanine Aminotransferase (ALT/SGPT) 9, Alkaline Phosphatase 85, Total Protein 6.3L, Albumin 3.0L 05/24/23 05:00: White Blood Count 4.4, Red Blood Count 4.00L, Hemoglobin 11.8L, Hematocrit 36L, Mean Corpuscular Volume 91, Mean Corpuscular Hemoglobin 30, Mean Corpuscular Hemoglobin Concent 33, Red Cell Distribution Width 21.9H, Platelet Count 238, Mean Platelet Volume 8.8L, Immature Granulocyte % (Auto) 1, Neutrophils (%) (Auto) 45, Lymphocytes (%) (Auto) 38, Monocytes (%) (Auto) 9, Eosinophils (%) (Auto) 5, Basophils (%) (Auto) 2, Neutrophils # (Auto) 2.0, Lymphocytes # (Auto) 1.7, Monocytes # (Auto) 0.4, Eosinophils # (Auto) 0.2, Basophils # (Auto) 0.1, Immature Granulocyte # (Auto) 0.0, Sodium Level 134L, Potassium Level 4.1, Chloride Level 105, Carbon Dioxide Level 22, Anion Gap 7, Blood Urea Nitrogen 12, Creatinine 0.58L, Estimat Glomerular Filtration Rate 124, BUN/Creatinine Ratio 21, Glucose Level 110H, Calcium Level 8.4L, Corrected Calcium 9.2, Magnesium Level 1.8, Total Bilirubin 0.2, Aspartate Amino Transf (AST/SGOT) 24, Alanine Aminotransferase (ALT/SGPT) 13, Alkaline Phosphatase 75, Total Protein 6.0L, Albumin 3.0L Microbiology 05/13/23 MRSA Screen - Final, Complete MRSA not isolated 05/13/23 Urine Culture - Final, Complete NO GROWTH 05/13/23 Gram Stain - Final, Complete 05/13/23 Wound Culture - Final, Complete Pseudomonas aeruginosa Mixed Bacterial Aleta 05/13/23 Blood Culture - Final, Complete Staph, Coag Neg ([employer]) Pending Labs Microbiology Date/Time Source Procedure Growth Status 05/13/23 06:05 Nasal MRSA Screen - Final MRSA not isolated Complete 05/13/23 01:00 Urine Clean Catch Urine Culture - Final NO GROWTH Complete 05/13/23 00:50 Ulcer Thigh,Right Gram Stain - Final Complete 05/13/23 00:50 Wound Culture - Final Pseudomonas aeruginosa Mixed Bacterial Aleta Complete 05/13/23 00:50 Ulcer Thigh,Left Gram Stain - Final Complete 05/13/23 00:50 Wound Culture - Final Pseudomonas aeruginosa Mixed Bacterial Aleta Complete 05/13/23 00:12 Peripheral Rt Hand Blood Culture - Final Staph, Coag Neg ([employer]) Complete 05/13/23 00:03 Peripheral Lt Hand Blood Culture - Final Staph, Coag Neg ([employer]) Complete Laboratory Tests 05/13/23 00:12: White Blood Count 7.1, Red Blood Count 4.59, Hemoglobin 13.1, Hematocrit 40, Mean Corpuscular Volume 88, Mean Corpuscular Hemoglobin 29, Mean Corpuscular Hemoglobin Concent 33, Red Cell Distribution Width 22.0, Platelet Count 236, Mean Platelet Volume 8.7, Immature Granulocyte % (Auto) 1, Neutrophils (%) (Auto ) 75, Lymphocytes (%) (Auto) 16, Monocytes (%) (Auto) 7, Eosinophils (%) (Auto) 1, Basophils (%) (Auto) 0, Neutrophils # (Auto) 5.3, Lymphocytes # (Auto) 1.1, Monocytes # (Auto) 0.5, Eosinophils # (Auto) 0.1, Basophils # (Auto) 0.0, Immature Granulocyte # (Auto) 0.0, Erythrocyte Sedimentation Rate 17, Prothrombin Time 13.7, INR Comment 1.0, Activated Partial Thromboplast Time 34, Sodium Level 138, Potassium Level 2.1, Chloride Level 99, Carbon Dioxide Level 25, Anion Gap 14, Blood Urea Nitrogen 6, Creatinine 0.56, Estimat Glomerular Filtration Rate 125, BUN/Creatinine Ratio 11, Glucose Level 85, Lactic Acid Level 2.90, Calcium Level 7.8, Corrected Calcium 8.8, Magnesium Level 1.8, Total Bilirubin 0.7, Aspartate Amino Transf (AST/SGOT) 26, Alanine Aminotransferase (ALT/SGPT) 19, Alkaline Phosphatase 149, Total Protein 5.9, Albumin 2.7 05/13/23 01:00: Urine Color YELLOW, Urine Clarity CLEAR, Urine pH 6.5, Urine Specific [place] 1.020, Urine Protein 1+, Urine Glucose (UA) NEGATIVE, Urine Ketones NEGATIVE, Urine Nitrite NEGATIVE, Urine Bilirubin 1+, Urine Urobilinogen 2.0, Urine Leukocyte Esterase NEGATIVE, Urine RBC (Auto) NEGATIVE, Urine RBC 0-2, Urine WBC 5-10, Urine Crystals NONE, Urine Bacteria TRACE, Urine Casts PRESENT, Urine Hyaline Casts 2-5, Urine White Blood Cell Casts 0-2, Urine Mucus SMALL, Urine Culture Indicated CULTURE PENDING 05/13/23 02:26: Lactic Acid Level 1.82 05/13/23 05:44: Lab Scanned Report Referred Lab Report 05/13/23 06:02: White Blood Count 5.9, Red Blood Count 3.91, Hemoglobin 11.2, Hematocrit 34, Mean Corpuscular Volume 86, Mean Corpuscular Hemoglobin 29, Mean Corpuscular Hemoglobin Concent 33, Red Cell Distribution Width 21.6, Platelet Count 212, Mean Platelet Volume 8.9, Immature Granulocyte % (Auto) 0, Neutrophils (%) (Auto) 63, Lymphocytes (%) (Auto) 25, Monocytes (%) (Auto) 9, Eosinophils (%) (Auto) 3, Basophils (%) (Auto) 0, Neutrophils # (Auto) 3.7, Lymphocytes # (Auto) 1.5, Monocytes # (Auto) 0.5, Eosinophils # (Auto) 0.2, Basophils # (Auto) 0.0, Immature Granulocyte # (Auto) 0.0, Sodium Level 138, Potassium Level 1.9, Chlor sanjeev Level 103, Carbon Dioxide Level 25, Anion Gap 10, Blood Urea Nitrogen 5, Creatinine 0.50, Estimat Glomerular Filtration Rate 130, BUN/Creatinine Ratio 10, Glucose Level 82, Calcium Level 7.2, Corrected Calcium 8.6, Phosphorus Level 2.7, Magnesium Level 1.5, Total Bilirubin 0.6, Aspartate Amino Transf (AST/SGOT) 20, Alanine Aminotransferase (ALT/SGPT) 15, Alkaline Phosphatase 125, Total Protein 4.8, Albumin 2.2 05/13/23 14:44: Sodium Level 138, Potassium Level 2.1, Chloride Level 105, Carbon Dioxide Level 26, Anion Gap 7, Blood Urea Nitrogen 4, Creatinine 0.50, Estimat Glomerular Filtration Rate 130, BUN/Creatinine Ratio 8, Glucose Level 111, Calcium Level 7.0 05/14/23 03:50: White Blood Count 5.1, Red Blood Count 3.88, Hemoglobin 11.2, Hematocrit 35, Mean Corpuscular Volume 89, Mean Corpuscular Hemoglobin 29, Mean Corpuscular Hemoglobin Concent 33, Red Cell Distribution Width 22.5, Platelet Count 200, Mean Platelet Volume 9.5, Immature Granulocyte % (Auto) 0, Neutrophils (%) (Auto) 62, Lymphocytes (%) (Auto) 25, Monocytes (%) (Auto) 7, Eosinophils (%) (Auto) 5, Basophils (%) (Auto) 1, Neutrophils # (Auto) 3.2, Lymphocytes # (Auto) 1.3, Monocytes # (Auto) 0.4, Eosinophils # (Auto) 0.2, Basophils # (Auto) 0.0, Immature Granulocyte # (Auto) 0.0, Sodium Level 140, Potassium Level 2.7, Chloride Level 107, Carbon Dioxide Level 23, Anion Gap 10, Blood Urea Nitrogen 3, Creatinine 0.51, Estimat Glomerular Filtration Rate 129, BUN/Creatinine Ratio 6, Glucose Level 100, Calcium Level 7.0, Corrected Calcium 8.5, Phosphorus Level 1.9, Magnesium Level 1.9, Total Bilirubin 0.3, Aspartate Amino Transf (AST/SGOT) 17, Alanine Aminotransferase (ALT/SGPT) 12, Alkaline Phosphatase 116, Total Protein 4.6, Albumin 2.1 05/14/23 08:50: Vancomycin Level Trough 13.2 05/15/23 05:06: White Blood Count 4.2, Red Blood Count 3.63, Hemoglobin 10.5, Hematocrit 33, Mean Corpuscular Volume 90, Mean Corpuscular Hemoglobin 29, Mean Corpuscular Hemoglobin Concent 32, Red Cell Distribution Width 22.3, Platelet Count 188, Mean Platelet Volume 9.5, Immature Granulocyte % (Auto) 1, Neutrophils (%) (Auto) 53, Lymphocytes (%) (Auto) 33, Monocytes (%) (Auto) 7, Eosinophils (%) (Auto) 6, Basophils (%) (Auto) 1, Neutrophils # (Auto) 2.2, Lymphocytes # (Auto) 1.4, Monocytes # (Auto) 0.3, Eosinophils # (Auto) 0.2, Basophils # (Auto) 0.0, Immature Granulocyte # (Auto) 0.0, Sodium Level 139, Potassium Level 2.9, Chloride Level 108, Carbon Dioxide Level 24, Anion Gap 7, Blood Urea Nitrogen 2, Creatinine 0.47, Estimat Glomerular Filtration Rate 132, BUN/Creatinine Ratio 4, Glucose Level 87, Calcium Level 7.0, Corrected Calcium 8.7, Magnesium Level 1.8, Total Bilirubin 0.3, Aspartate Amino Transf (AST/SGOT) 14, Alanine Aminotransferase (ALT/SGPT) 8, Alkaline Phosphatase 105, Total Protein 4.1, Albumin 1.9 05/16/23 05:44: White Blood Count 4.2, Red Blood Count 3.81, Hemoglobin 11.0, Hematocrit 34, Mean Corpuscular Volume 90, Mean Corpuscular Hemoglobin 29, Mean Corpuscular Hemoglobin Concent 32, Red Cell Distribution Width 22.5, Platelet Count 194, Mean Platelet Volume 9.2, Immature Granulocyte % (Auto) 0, Neutrophils (%) (Auto) 54, Lymphocytes (%) (Auto) 33, Monocytes (%) (Auto) 7, Eosinophils (%) (Auto) 5, Basophils (%) (Auto) 1, Neutrophils # (Auto) 2.2, Lymphocytes # (Auto) 1.4, Monocytes # (Auto) 0.3, Eosinophils # (Auto) 0.2, Basophils # (Auto) 0.0, Immature Granulocyte # (Auto) 0.0, Sodium Level 139, Potassium Level 2.8, Chloride Level 105, Carbon Dioxide Level 28, Anion Gap 6, Blood Urea Nitrogen 2, Creatinine 0.45, Estimat Glomerular Filtration Rate 134, BUN/Creatinine Ratio 4, Glucose Level 86, Calcium Level 7.2, Corrected Calcium 8.8, Magnesium Level 1.7, Total Bilirubin 0.3, Aspartate Amino Transf (AST/SGOT) 16, Alanine Aminotransferase (ALT/SGPT) 8, Alkaline Phosphatase 106, Total Protein 4.5, Albumin 2.0 05/17/23 04:48: White Blood Count 3.7, Red Blood Count 3.74, Hemoglobin 10.8, Hematocrit 34, Mean Corpuscular Volume 90, Mean Corpuscular Hemoglobin 29, Mean Corpuscular Hemoglobin Concent 32, Red Cell Distribution Width 22.8, Platelet Count 187, Mean Platelet Volume 9.0, Immature Granulocyte % (Auto) 1, Neutrophils (%) (Auto) 51, Lymphocytes (%) (Auto) 35, Monocytes (%) (Auto) 8, Eosinophils (%) (Auto) 5, Basophils (%) (Auto) 1, Neutrophils # (Auto) 1.9, Lymphocytes # (Auto) 1.3, Monocytes # (Auto) 0.3, Eosinophils # (Auto) 0.2, Basophils # (Auto) 0.0, Immature Granulocyte # (Auto) 0.0, Sodium Level 139, Potassium Level 3.8, Chloride Level 106, Carbon Dioxide Level 28, Anion Gap 5, Blood Urea Nitrogen 3, Creatinine 0.51, Estimat Glomerular Filtration Rate 129, BUN/Creatinine Ratio 6, Glucose Level 100, Calcium Level 7.3, Corrected Calcium 9.0, Magnesium Level 1.5, Total Bilirubin 0.2, Aspartate Amino Transf (AST/SGOT) 14, Alanine Aminotransferase (ALT/SGPT) 7, Alkaline Phosphatase 102, Total Protein 4.6, Albumin 1.9 05/18/23 05:59: White Blood Count 3.5, Red Blood Count 3.75, Hemoglobin 11.0, Hematocrit 34, Mean Corpuscular Volume 91, Mean Corpuscular Hemoglobin 29, Mean Corpuscular Hemoglobin Concent 32, Red Cell Distribution Width 22.6, Platelet Count 190, Mean Platelet Volume 9.2, Immature Granulocyte % (Auto) 0, Neutrophils (%) (Auto) 47, Lymphocytes (%) (Auto) 38, Monocytes (%) (Auto) 8, Eosinophils (%) (Auto) 6, Basophils (%) (Auto) 1, Neutrophils # (Auto) 1.7, Lymphocytes # (Auto) 1.3, Monocytes # (Auto) 0.3, Eosinophils # (Auto) 0.2, Basophils # (Auto) 0.0, Immature Granulocyte # (Auto) 0.0, Sodium Level 141, Potassium Level 4.0, Chloride Level 109, Carbon Dioxide Level 24, Anion Gap 8, Blood Urea Nitrogen 4, Creatinine 0.48, Estimat Glomerular Filtration Rate 131, BUN/Creatinine Ratio 8, Glucose Level 94, Calcium Level 7.3, Corrected Calcium 9.0, Magnesium Level 1.7, Total Bilirubin 0.2, Aspartate Amino Transf (AST/SGOT) 15, Alanine Aminotransferase (ALT/SGPT) < 6, Alkaline Phosphatase 94, Total Protein 4.4, Albumin 1.9 05/19/23 04:54: White Blood Count 4.1, Red Blood Count 3.93, Hemoglobin 11.6, Hematocrit 36, Mean Corpuscular Volume 90, Mean Corpuscular Hemoglobin 30, Mean Corpuscular Hemoglobin Concent 33, Red Cell Distribution Width 22.5, Platelet Count 215, Mean Platelet Volume 9.2, Immature Granulocyte % (Auto) 1, Neutrophils (%) (Auto) 48, Lymphocytes (%) (Auto) 37, Monocytes (%) (Auto) 9, Eosinophils (%) (Auto) 5, Basophils (%) (Auto) 1, Neutrophils # (Auto) 2.0, Lymphocytes # (Auto) 1.5, Monocytes # (Auto) 0.4, Eosinophils # (Auto) 0.2, Basophils # (Auto) 0.0, Immature Granulocyte # (Auto) 0.0, Sodium Level 136, Potassium Level 4.6, Chloride Level 105, Carbon Dioxide Level 25, Anion Gap 6, Blood Urea Nitrogen 5, Creatinine 0.51, Estimat Glomerular Filtration Rate 129, BUN/Creatinine Ratio 10, Glucose Level 86, Calcium Level 7.8, Corrected Calcium 9.3, Magnesium Level 1.7, Total Bilirubin 0.2, Aspartate Amino Transf (AST/SGOT) 16, Alanine Aminotransferase (ALT/SGPT) 7, Alkaline Phosphatase 99, Total Protein 5.0, Albumin 2.1 05/20/23 06:14: White Blood Count 4.0, Red Blood Count 4.26, Hemoglobin 12.2, Hematocrit 39, Mean Corpuscular Volume 90, Mean Corpuscular Hemoglobin 29, Mean Corpuscular He moglobin Concent 32, Red Cell Distribution Width 22.8, Platelet Count 240, Mean Platelet Volume 9.2, Immature Granulocyte % (Auto) 1, Neutrophils (%) (Auto) 48, Lymphocytes (%) (Auto) 36, Monocytes (%) (Auto) 8, Eosinophils (%) (Auto) 6, Basophils (%) (Auto) 1, Neutrophils # (Auto) 1.9, Lymphocytes # (Auto) 1.4, Monocytes # (Auto) 0.3, Eosinophils # (Auto) 0.2, Basophils # (Auto) 0.1, Immature Granulocyte # (Auto) 0.0, Sodium Level 136, Potassium Level 5.2, Chloride Level 105, Carbon Dioxide Level 24, Anion Gap 7, Blood Urea Nitrogen 6, Creatinine 0.53, Estimat Glomerular Filtration Rate 128, BUN/Creatinine Ratio 11, Glucose Level 92, Calcium Level 8.5, Corrected Calcium 9.9, Magnesium Level 2.1, Total Bilirubin 0.2, Aspartate Amino Transf (AST/SGOT) 15, Alanine Aminotransferase (ALT/SGPT) 7, Alkaline Phosphatase 108, Total Protein 5.4, Albumin 2.3 05/21/23 05:43: White Blood Count 4.2, Red Blood Count 4.12, Hemoglobin 12.0, Hematocrit 37, Mean Corpuscular Volume 91, Mean Corpuscular Hemoglobin 29, Mean Corpuscular Hemoglobin Concent 32, Red Cell Distribution Width 22.7, Platelet Count 266, Mean Platelet Volume 9.0, Immature Granulocyte % (Auto) 1, Neutrophils (%) (Auto) 49, Lymphocytes (%) (Auto) 34, Monocytes (%) (Auto) 10, Eosinophils (%) (Auto) 6, Basophils (%) (Auto) 1, Neutrophils # (Auto) 2.0, Lymphocytes # (Auto) 1.4, Monocytes # (Auto) 0.4, Eosinophils # (Auto) 0.2, Basophils # (Auto) 0.0, Immature Granulocyte # (Auto) 0.0, Sodium Level 134, Potassium Level 5.1, Chloride Level 104, Carbon Dioxide Level 22, Anion Gap 8, Blood Urea Nitrogen 10, Creatinine 0.54, Estimat Glomerular Filtration Rate 127, BUN/Creatinine Ratio 19, Glucose Level 104, Calcium Level 8.3, Corrected Calcium 9.5, Magnesium Level 2.0, Total Bilirubin 0.2, Aspartate Amino Transf (AST/SGOT) 13, Alanine Aminotransferase (ALT/SGPT) 6, Alkaline Phosphatase 104, Total Protein 5.6, Albumin 2.5 05/22/23 05:40: White Blood Count 4.7, Red Blood Count 4.15, Hemoglobin 12.1, Hematocrit 38, Mean Corpuscular Volume 90, Mean Corpuscular Hemoglobin 29, Mean Corpuscular Hemoglobin Concent 32, Red Cell Distribution Width 22.2, Platelet Count 269, Mean Platelet Volume 9.0, Immature Granulocyte % (Auto) 1, Neutrophils (%) (Auto) 46, Lymphocytes (%) (Auto) 38, Monocytes (%) (Auto) 10, Eosinophils (%) (Auto) 5, Basophils (%) (Auto) 1, Neutrophils # (Auto) 2.1, Lymphocytes # (Auto) 1.8, Monocytes # (Auto) 0.5, Eosinophils # (Auto) 0.2, Basophils # (Auto) 0.1, Immature Granulocyte # (Auto) 0.1, Sodium Level 134, Potassium Level 4.9, Chloride Level 103, Carbon Dioxide Level 24, Anion Gap 7, Blood Urea Nitrogen 11, Creatinine 0.58, Estimat Glomerular Filtration Rate 124, BUN/Creatinine Ratio 19, Glucose Level 66, Calcium Level 8.5, Corrected Calcium 9.5, Magnesium Level 2.1, Total Bilirubin 0.2, Aspartate Amino Transf (AST/SGOT) 14, Alanine Aminotransferase (ALT/SGPT) 6, Alkaline Phosphatase 92, Total Protein 6.0, Albumin 2.8 05/23/23 05:05: White Blood Count 4.3, Red Blood Count 4.18, Hemoglobin 12.3, Hematocrit 38, Mean Corpuscular Volume 90, Mean Corpuscular Hemoglobin 29, Mean Corpuscular Hemoglobin Concent 33, Red Cell Distribution Width 22.3, Platelet Count 260, Mean Platelet Volume 9.0, Immature Granulocyte % (Auto) 1, Neutrophils (%) (Auto) 42, Lymphocytes (%) (Auto) 40, Monocytes (%) (Auto) 10, Eosinophils (%) (Auto) 5, Basophils (%) (Auto) 1, Neutrophils # (Auto) 1.8, Lymphocytes # (Auto) 1.7, Monocytes # (Auto) 0.4, Eosinophils # (Auto) 0.2, Basophils # (Auto) 0.1, Immature Granulocyte # (Auto) 0.0, Sodium Level 134, Potassium Level 4.4, Chloride Level 104, Carbon Dioxide Level 22, Anion Gap 8, Blood Urea Nitrogen 13, Creatinine 0.64, Estimat Glomerular Filtration Rate 120, BUN/Creatinine Ratio 20, Glucose Level 113, Calcium Level 8.7, Corrected Calcium 9.5, Magnesium Level 1.9, Total Bilirubin 0.2, Aspartate Amino Transf (AST/SGOT) 17, Alanine Aminotransferase (ALT/SGPT) 9, Alkaline Phosphatase 85, Total Protein 6.3, Albumin 3.0 05/24/23 05:00: White Blood Count 4.4, Red Blood Count 4.00, Hemoglobin 11.8, Hematocrit 36, Mean Corpuscular Volume 91, Mean Corpuscular Hemoglobin 30, Mean Corpuscular Hemoglobin Concent 33, Red Cell Distribution Width 21.9, Platelet Count 238, Mean Platelet Volume 8.8, Immature Granulocyte % (Auto) 1, Neutrophils (%) (Auto) 45, Lymphocytes (%) (Auto) 38, Monocytes (%) (Auto) 9, Eosinophils (%) (Auto) 5, Basophils (%) (Auto) 2, Neutrophils # (Auto) 2.0, Lymphocytes # (Auto) 1.7, Monocytes # (Auto) 0.4, Eosinophils # (Auto) 0.2, Basophils # (Auto) 0.1, Immature Granulocyte # (Auto) 0.0, Sodium Level 134, Potassium Level 4.1, Chloride Level 105, Carbon Dioxide Level 22, Anion Gap 7, Blood Urea Nitrogen 12, Creatinine 0.58, Estimat Glomerular Filtration Rate 124, BUN/Creatinine Ratio 21, Glucose Level 110, Calcium Level 8.4, Corrected Calcium 9.2, Magnesium Level 1.8, Total Bilirubin 0.2, Aspartate Amino Transf (AST/SGOT) 24, Alanine Aminotransferase (ALT/SGPT) 13, Alkaline Phosphatase 75, Total Protein 6.0, Albumin 3.0 Discharge Home Medications: Active Scripts Active Lotrimin AF (Miconazole Nitrate) 2 % Powder 0 Gm TOP BID twice daily Oxyir Tablet (Oxycodone HCl) 5 Mg Tab 5 Mg PO Q4H PRN Pregabalin 75 Mg Capsule 75 Mg PO BID PRN Reported Cyclobenzaprine HCl 5 Mg Tablet 5 Mg PO Q8H PRN Instructions to patient/family Please see electronic discharge instructions given to patient. ATIF LIND DO May 27, 2023 09:33
== END 2023-05-27 12:00 | disposition home or self-care (01) ==
LOC: EDUNIT# 23:58 → ER 23:59 → ICU 05-13 05:44 → 4TH 05-14 19:41
PROVIDERS: ADMIT Internal Medicine; ATTEND Internal Medicine
DX: L03.90 Cellulitis, unspecified (principal); S71.102A Unspecified open wound, left thigh, initial encounter; S71.101A Unspecified open wound, right thigh, initial encounter; A41.9 Sepsis, unspecified organism; E87.20 Acidosis, unspecified; E87.6 Hypokalemia; I73.9 Peripheral vascular disease, unspecified; E87.5 Hyperkalemia; R19.09 Other intra-abdominal and pelvic swelling, mass and lump; F17.210 Nicotine dependence, cigarettes, uncomplicated; Z89.611 Acquired absence of right leg above knee; Z89.612 Acquired absence of left leg above knee; Z91.199 Patient's noncompliance with other medical treatment and regimen due to unspecified reason; Z28.310 Unvaccinated for COVID-19
CPT/HCPCS: 36410; 51702; 71045; 74022; 76937; 80048; 80053 ×12; 80202; 81000; 83605; 83735 ×12; 84100 ×2; 85025 ×12; 85610; 85652; 85730; 87040; 87070; 87077; 87081; 87088; 87106; 87186; 87205; 93970; 94760; 96361 ×3; 96365; 96366 ×10; 96367; 96372 ×15; 96375 ×3; 96376 ×13; 97110; 97166; 99284; C1751; G0378 ×2; 36415

== ENCOUNTER 2023-06-20 02:31 | Inpatient (IN) | payer MEDICAID ==
[2023-06-20] VITALS (11 sets, daily range): BP systolic 108–131; BP diastolic 57–84
[~2023-06-20] VITALS: Ht 111.8 cm; Wt 56.8 kg
[~2023-06-20 02:31] MED LIST changes: +MICO90PO TOP
--- NOTE | 2023-06-20 02:37 | ED General ---
General Chief Complaint: General Problems/Pain Stated Complaint: BUTT PAIN Source of Information: Patient Exam Limitations: No Limitations History of Present Illness Date Seen by Provider: Jun 20, 2023 Time Seen by Provider: 02:37 Initial Comments Patient is a 43-year-old male with a history of severe peripheral vascular disease, bilateral [id number] amputations, chronic tobacco use, persistent and unremitting medical noncompliance, terrible pressure ulcers to the posterior thighs who presents to the emergency department with buttock/rectal pain and abdominal pain. Patient states that he has taken ibuprofen without any relief of symptoms. He admits to a "glass of vodka" this evening. He denies any fevers or chills. He states he is nauseous. He cannot recall his last bowel movement anywhere from 4 days to a week ago. He states he has been able to eat a little. He denies chest pain or shortness of breath. He is covered in fecal material between the legs and across the open wounds on the posterior thighs and rectum. Vital signs are stable. He insists that he "does what he can" to take care of himself however again he is covered in fecal material and states that must of been present since the last time he had a bowel movement a week ago. He states he has no light in his house and therefore cannot see that he is filthy. He has what appears to be stool under his fingernails. Completely disheveled and foul-smelling. Speaks to this examiner with his eyes closed. Pain is better as long as he doesnt have to move. Timing/Duration: 12-24 Hours Severity: Severe Associated Systoms: Nausea/Vomiting (nausea without vomiting) Allergies and Home Medications Allergies Coded Allergies: No Known Drug Allergies (Unverified , 08/04/21) He denies allergies to drugs and food, says he has seasonal allergies Patient Home Medication List Home Medication List Reviewed: Yes Miconazole Nitrate (Lotrimin AF) 2 % Powder, 0 GM TOP BID Prescribed by: ATIF LIND on 05/27/23931 Pregabalin (Pregabalin) 75 Mg Capsule, 75 MG PO BID PRN for PAIN-BREAKTHROUGH Prescribed by: ATIF LIND on 05/27/23932 Discontinued Medications Cyclobenzaprine HCl (Cyclobenzaprine HCl) 5 Mg Tablet, 5 MG PO Q8H PRN for MUSCLE SPASMS, (Reported) Discontinued Reason: No Longer Taking Entered as Reported by: JO DAVISON on 03/03/23 1349 Last Action: Discontinued Oxycodone Hcl (Oxyir Tablet) 5 Mg Tab, 5 MG PO Q4H PRN for PAIN-SEVERE (8-10) Discontinued Reason: No Longer Taking Prescribed by: ATIF LIND on 05/27/23 0919 Last Action: Discontinued Review of Systems Review of Systems Constitutional: see HPI EENTM: no symptoms reported Respiratory: no symptoms reported Cardiovascular: no symptoms reported Gastrointestinal: constipation, nausea Genitourinary: no symptoms reported Musculoskeletal: no symptoms reported Skin: no symptoms reported Past Jlrmfuj-Lfvqnt-Olplfd Hx Immunizations Up To Date First/Initial COVID19 Vaccinat: DOESN'T PLAN ON TAKING IT Second COVID19 Vaccination Bear: DOESN'T PLAN ON TAKING IT Third COVID19 Vaccination Date: DOESN'T PLAN ON TAKING IT Seasonal Allergies Seasonal Allergies: Yes Past Medical History Surgery/Hospitalization HX: -bilateral foot surgerys/toe amputations - first 3 toes on each food removed -all teeth pulled/removed pad/dvt, psoraisis bi lat below the knee amputation Surgeries: Yes Abdominal, Amputation, Orthopedic Respiratory: No Cardiac: Yes (PAD; DVT'S ) Chronic Edema/Swelling, Deep Vein Thrombosis, Peripheral Vascular Neurological: No Genitourinary: No Gastrointestinal: No Musculoskeletal: Yes (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 -ALL TEETH REMOVED -HERNIA REPAIR Physical Exam Vital Signs Vital Signs - First Documented 06/20/23 02:31 Temp 36.9 Pulse 94 Resp 16 B/P (MAP) 109/73 (85) Pulse Ox 96 O2 Delivery Room Air Capillary Refill : Height, Weight, BMI Height: '" Weight: lbs. oz. kg; 61.60 BMI Method: General Appearance: No Apparent Distress, WD/WN, Obese Respiratory: Lungs Clear, Normal Breath Sounds, No Accessory Muscle Use, No Respiratory Distress Cardiovascular: Regular Rate, Rhythm, Tachycardia (95bpm) Gastrointestinal: Abnormal Bowel Sounds (high pitched tinkling bowel sounds throughout. voluntary guarding.), Distended, Tenderness (diffuse) Rectal: Tenderness Genital/Rectal: Normal Genital Exam, Normal Rectal Tone, Other (no masses/stool palpated in rectal vault) Back: Normal Inspection Extremity: Other (bilateral AKA, edema) Neurologic/Psychiatric: Alert, Oriented x3, No Motor/Sensory Deficits Skin: Warm/Dry, Other (patient has erythema to the lower buttocks; open wounds to the posterior bilateral thighs with surrounding erythema. He is covered in dried fecal material over his posterior thighs and between his legs) Progress/Results/Core Measures Suspected Sepsis SIRS Temperature: Pulse: Respiratory Rate: Laboratory Tests 06/20/23 03:34: White Blood Count 8.1 Blood Pressure / Mean: Laboratory Tests 06/20/23 03:34: Creatinine 0.58L, Platelet Count 219 Results/Orders Lab Results Laboratory Tests Test 06/20/23 03:34 Range/Units White Blood Count 8.1 4.3-11.0 10^3/uL Red Blood Count 4.91 4.30-5.52 10^6/uL Hemoglobin 14.5 13.3-17.7 g/dL Hematocrit 44 40-54 % Mean Corpuscular Volume 90 80-99 fL Mean Corpuscular Hemoglobin 30 25-34 pg Mean Corpuscular Hemoglobin Concent 33 32-36 g/dL Red Cell Distribution Width 17.9 H 10.0-14.5 % Platelet Count 219 130-400 10^3/uL Mean Platelet Volume 8.8 L 9.0-12.2 fL Immature Granulocyte % (Auto) 0 % Neutrophils (%) (Auto) 70 42-75 % Lymphocytes (%) (Auto) 18 12-44 % Monocytes (%) (Auto) 8 0-12 % Eosinophils (%) (Auto) 3 0-10 % Basophils (%) (Auto) 1 0-10 % Neutrophils # (Auto) 5.7 1.8-7.8 10^3/uL Lymphocytes # (Auto) 1.5 1.0-4.0 10^3/uL Monocytes # (Auto) 0.7 0.0-1.0 10^3/uL Eosinophils # (Auto) 0.2 0.0-0.3 10^3/uL Basophils # (Auto) 0.1 0.0-0.1 10^3/uL Immature Granulocyte # (Auto) 0.0 0.0-0.1 10^3/uL Sodium Level 139 135-145 MMOL/L Potassium Level 3.1 L 3.6-5.0 MMOL/L Chloride Level 104 98-107 MMOL/L Carbon Dioxide Level 21 21-32 MMOL/L Anion Gap 14 5-14 MMOL/L Blood Urea Nitrogen 7 7-18 MG/DL Creatinine 0.58 L 0.60-1.30 MG/DL Estimat Glomerular Filtration Rate 124 BUN/Creatinine Ratio 12 Glucose Level 87 70-105 MG/DL Calcium Level 8.5 8.5-10.1 MG/DL My Orders Orders - KYE FINCH MD Abdomen/Kub 1view (06/20/23 02:48) Ct Abdomen/Pelvis W (06/20/23 03:30) Ed Iv/Invasive Line Start (06/20/23 03:30) Cbc With Automated Diff (06/20/23 03:30) Basic Metabolic Panel (06/20/23 03:30) Iohexol Injection (Omnipaque 350 Mg/Ml 1 (06/20/23 04:15) Received Contrast (Hold Metformin- Contr (06/20/23 04:15) Sodium Chloride Flush (Catheter Flush Sy (06/20/23 04:15) Ns (Ivpb) 100 Ml (Sodium Chloride 0.9% 1 (06/20/23 04:15) Medications Given in ED Vital Signs/I&O 06/20/23 02:31 Temp 36.9 Pulse 94 Resp 16 B/P (MAP) 109/73 (85) Pulse Ox 96 O2 Delivery Room Air Capillary Refill : Progress Note : Time: 06:21 Progress Note Discussed with Dr Javier, accepts the patient for admission for decompressive colonoscopy. Patient seen and evaluated by me. Evaluation today includes physical exam, CBC, basic metabolic panel, KUB and CT of the abdomen and pelvis with IV contrast. Pertinent physical exam findings obese male mild to moderate distress due to pain at the rectum, lower abdomen and posterior thighs. Patient is chronically noncompliant and is completely filthy/disheveled. His vital signs are stable, he is afebrile. He is mildly tachycardic with a heart rate in the mid 90s. N ormal blood pressure. He is not hypoxic. Abdomen is significantly distended with high-pitched tinkling bowel sounds. exam is normal. Rectal exam is performed and demonstrates no fecal impaction. His wounds at the posterior thighs do not appear significantly cellulitic but are cavitary in nature and erythematous with drainage. Differential diagnosis based on history and physical exam acute bowel obstruction Labs independently reviewed and interpreted by me. His CBC is normal. His basic metabolic panel is significant only for a decreased potassium at 3.1. KUB shows massive colonic distention with gas. CT confirms KUB suggestive of "[place] syndrome" or pseudo colonic obstruction. Patient has been relatively calm throughout his stay in the emergency department. He is not requesting pain medications. I discussed the case with Dr. Javier on-call for general surgery who agrees for admission. Bridge orders are written Diagnostic Imaging Diagonstic Imaging: Xray Plain Films/CT/US/NM/MRI: chest Comments [facility], [place] NAME: RADHA ROSE [facility] REC#: [id number] PT STATUS: REG ER : 1980 PHYSICIAN: KYE FINCH MD ADMIT DATE: 06/20/23/ER Draft Date of Exam:06/20/23 ABDOMEN/KUB 1VIEW INDICATION: Constipation. COMPARISON: 05/17/2023 FINDINGS: Two frontal radiographic views of the abdomen were obtained and again show marked amount of gas scattered throughout the colon. Small bowel dilatation is difficult to assess. There is no large collection of free intraperitoneal air. No unexpected radiopaque foreign bodies are seen. Osseous structures show no acute abnormalities. IMPRESSION: 1. Marked diffuse gaseous distention of the colon. Dictated on workstation # [id number] Dict: 06/20/23 0508 Trans: 06/20/23 0517 TESSIE [id number] Interpreted by: CLAU SUAREZ MD Electronically signed by: Diagonstic Imaging: CT Comments NAME: RADHA ROSE [facility] REC#: [id number] PT STATUS: REG ER : 1980 PHYSICIAN: KYE FINCH MD ADMIT DATE: 06/20/23/ER Draft Date of Exam:06/20/23 CT ABDOMEN/PELVIS W PROCEDURE: CT abdomen and pelvis with contrast. TECHNIQUE: Multiple contiguous axial images were obtained through the abdomen and pelvis after administration of intravenous contrast. Auto Exposure Controls were utilized during the CT exam to meet ALARA standards for radiation dose reduction. All CT scans use one or more of the following dose optimizing techniques: automated exposure control, MA and/or KvP adjustment based on patient size and exam type or iterative reconstruction. INDICATION: Abdominal pain. Constipation. Abdominal distention. COMPARISON: KUB from earlier same day FINDINGS: Included portions of the lung bases are clear. CT ABDOMEN: Again identified is severe diffuse gaseous distention of the colon. A few colonic air-fluid levels are also noted. No focal transition point of the colon is seen to suggest volvulus or other focal obstruction. Normal appendix cannot be adequately identified, but there is no pericecal inflammation. Small bowel loops are nondilated. The kidneys, adrenal glands, spleen, pancreas, and liver have a normal CT appearance. There is no loculated fluid collection, free fluid or free air within the abdomen. No abnormal mesenteric or retroperitoneal adenopathy is seen. Osseous structures show no acute abnormalities. CT PELVIS: Urinary bladder is unopacified. No calculi are seen within the urinary bladder. There is no loculated fluid collection, free fluid or free air within the pelvis. No abnormal adenopathy is seen. Osseous structures show no acute abnormalities. IMPRESSION: 1. Severe diffuse distention of the colon, but without evidence of focal obstruction or other transition point. Small bowel loops are also nondilated. Findings raise suspicion for potential Roesmary's. Dictated on workstation # [id number] Dict: 06/20/23 0601 Trans: 06/20/23 0610 TESSIE [id number] Interpreted by: CLAU SUAREZ MD Electronically signed by: Departure Communication (Admissions) Time/Spoke to Admitting Phy: 06:[address] Javier (gen surgery) - NPO, obs/ med/surg bed Impression Primary Impression: Generalized abdominal pain Additional Impressions: Rosemary's syndrome Hypokalemia Disposition: ADMITTED INPATIENT Condition: Stable Admissions Decision to Admit Reason: Admit from ER (General) Decision to Admit/Date: Jun 20, 2023 Time/Decision to Admit Time: 06:25 Departure-Patient Inst. Referrals: NO,LOCAL PHYSICIAN (PCP/Family) Primary Care Physician KYE FINCH MD Jun 20, 2023 02:37
[2023-06-20 03:44] LABS: BASOPHILS # (AUTO) 0.1 10^3/uL (0.0-0.1); BASOPHILS % (AUTO) 1 % (0-10); EOSINOPHILS # (AUTO) 0.2 10^3/uL (0.0-0.3); EOSINOPHILS % (AUTO) 3 % (0-10); HEMATOCRIT 44 % (40-54); HEMOGLOBIN 14.5 g/dL (13.3-17.7); LYMPHOCYTES # (AUTO) 1.5 10^3/uL (1.0-4.0); LYMPHOCYTES % (AUTO) 18 % (12-44); MEAN CORPUSCULAR HEMOGLOBIN 30 pg (25-34); MEAN CORPUSCULAR HGB CONC 33 g/dL (32-36); MEAN CORPUSCULAR VOLUME 90 fL (80-99); MEAN PLATELET VOLUME 8.8 fL (9.0-12.2); MONOCYTES # (AUTO) 0.7 10^3/uL (0.0-1.0); MONOCYTES % (AUTO) 8 % (0-12); NEUTROPHILS # (AUTO) 5.7 10^3/uL (1.8-7.8); NEUTROPHILS % (AUTO) 70 % (42-75); PLATELET COUNT 219 10^3/uL (130-400); WHITE BLOOD COUNT 8.1 10^3/uL (4.3-11.0)
[2023-06-20 03:54] LABS: POTASSIUM 3.1 MMOL/L (3.6-5.0)
[2023-06-20 03:55] LABS: CALCIUM 8.5 MG/DL (8.5-10.1)
[2023-06-20 04:00] LABS: CREATININE SERUM 0.58 MG/DL (0.60-1.30)
[2023-06-20] MEDS ORDERED: NS 100 ML (IVPB) BAG IV ONE (04:15)
[2023-06-20] MEDS ORDERED: HOLD METFORMIN - RECEIVED CONTRAST 20 ML VIAL IV SCH (04:15)
[2023-06-20] MEDS ORDERED: IOHEXOL 350 MG/ML 100 ML (OMNIPAQUE 350) VIAL IV ONE (04:15)
[2023-06-20] MEDS: CATHETER FLUSH 10 ML SYR IV PRN (04:16)
--- NOTE | 2023-06-20 05:17 | Diagnostic Imaging Report ---
INDICATION: Constipation. COMPARISON: 05/17/2023 FINDINGS: Two frontal radiographic views of the abdomen were obtained and again show marked amount of gas scattered throughout the colon. Small bowel dilatation is difficult to assess. There is no large collection of free intraperitoneal air. No unexpected radiopaque foreign bodies are seen. Osseous structures show no acute abnormalities. IMPRESSION: 1. Marked diffuse gaseous distention of the colon. Dictated by: Dictated on workstation # [id number]
--- NOTE | 2023-06-20 06:11 | Diagnostic Imaging Report ---
PROCEDURE: CT abdomen and pelvis with contrast. TECHNIQUE: Multiple contiguous axial images were obtained through the abdomen and pelvis after administration of intravenous contrast. Auto Exposure Controls were utilized during the CT exam to meet ALARA standards for radiation dose reduction. All CT scans use one or more of the following dose optimizing techniques: automated exposure control, MA and/or KvP adjustment based on patient size and exam type or iterative reconstruction. INDICATION: Abdominal pain. Constipation. Abdominal distention. COMPARISON: KUB from earlier same day FINDINGS: Included portions of the lung bases are clear. CT ABDOMEN: Again identified is severe diffuse gaseous distention of the colon. A few colonic air-fluid levels are also noted. No focal transition point of the colon is seen to suggest volvulus or other focal obstruction. Normal appendix cannot be adequately identified, but there is no pericecal inflammation. Small bowel loops are nondilated. The kidneys, adrenal glands, spleen, pancreas, and liver have a normal CT appearance. There is no loculated fluid collection, free fluid or free air within the abdomen. No abnormal mesenteric or retroperitoneal adenopathy is seen. Osseous structures show no acute abnormalities. CT PELVIS: Urinary bladder is unopacified. No calculi are seen within the urinary bladder. There is no loculated fluid collection, free fluid or free air within the pelvis. No abnormal adenopathy is seen. Osseous structures show no acute abnormalities. IMPRESSION: 1. Severe diffuse distention of the colon, but without evidence of focal obstruction or other transition point. Small bowel loops are also nondilated. Findings raise suspicion for potential Rosemary's. Dictated by: Dictated on workstation # [id number]
[2023-06-20] MEDS ORDERED: ONDANSETRON INJECTION 4 MG/2 ML (SDV) IVP PRN ×2 (08:15→15:15)
--- NOTE | 2023-06-20 08:33 | Consultation - Surgery ---
ZOE PALMER 06/20/23 0832: History of Present Illness History of Present Illness Patient Consulted On(bimal/time) 06/20/23 08:20 Date Seen by Provider: Jun 20, 2023 Time Seen by Provider: 08:00 Reason for Visit: Constipation and abdominal distension History of Present Illness Alex Ma is a 43 yo male who was admitted from the ED for abdominal pain and constipation with concern for Bellmont Syndrome. The patient reports he typically stools once every 3-4 days but has not stooled for around 1 week at this time. He further reports abdominal distension and discomfort without pain accompanying his constipation. He notes he has had a decreased appetite for the past 5 days, only eating "a few crackers" each day; he has also been drinking less, with decreased urine output and darker urine. The patient states he has a history of constipation, though these all occurred when he was a teenager, and he has not gone this long of a period without a stool before. He notes he had a similar episode of abdominal distension around 2 months, seen at [place], where he had both an NG tube and a rectal tube placed. The patient denies any abdo rose pain, rectal pain, rectal bleeding, hematochezia on any recent stool, nausea, vomiting, fever, chills, chest pain, shortness of breath, sore throat, headache, dysuria, hematuria, or difficulty urinating. The patient does admit to chronic diarrhea; he states he has not had a normal stool since he had his teeth removed in 2009 for dental infection. The patient has secondary complaint of bilateral chronic leg wounds with pain. The patient had bilateral AKAs performed in [place] around 1 year ago and has not been following up with either orthopedics or outpatient wound care. He states the wounds have never healed, and he is not currently taking antibiotics. He remarks he has a homecare nurse who visits in the mornings, last yesterday. The patient also endorses back soreness at this time, but attributes this to the position he is lying in. Allergies and Home Medications Allergies Coded Allergies: No Known Drug Allergies (Unverified , 08/04/21) He denies allergies to drugs and food, says he has seasonal allergies Patient Home Medication List Home Medication List Reviewed: Yes Miconazole Nitrate (Lotrimin AF) 2 % Powder, 0 GM TOP BID Prescribed by: ATIF LIND on 05/27/23931 Pregabalin (Pregabalin) 75 Mg Capsule, 75 MG PO BID PRN for PAIN-BREAKTHROUGH Prescribed by: ATIF LIND on 05/27/23932 Discontinued Medications Cyclobenzaprine HCl (Cyclobenzaprine HCl) 5 Mg Tablet, 5 MG PO Q8H PRN for MUSCLE SPASMS, (Reported) Discontinued Reason: No Longer Taking Entered as Reported by: JO DAVISON on 03/03/23 1349 Last Action: Discontinued Oxycodone Hcl (Oxyir Tablet) 5 Mg Tab, 5 MG PO Q4H PRN for PAIN-SEVERE (8-10) Discontinued Reason: No Longer Taking Prescribed by: ATIF LIND on 05/27/23932 Last Action: Discontinued Past Zhbhhed-Yuenyh-Uxiwwa Hx Patient Social History Smoking Status: Current Everyday Smoker (29 years) Cigarettes Per Day: 20 Type Used: Cigarettes Recent Hopitalizations: Yes Alcohol Use?: Yes (1 styrofoam cup of vodka daily) Seasonal Allergies Seasonal Allergies: Yes Surgeries History of Surgeries: Yes Surgeries: Abdominal (hernia, repaired at age 5), Amputation, Orthopedic Respiratory History of Respiratory Disorde: No Cardiovascular History of Cardiac Disorders: Yes (PAD, DVTs) Cardiac Disorders: Chronic Edema/Swelling, Deep Vein Thrombosis, Peripheral Vascular Neurological History of Neurological Disord: No Genitourinary History of Genitourinary Disor: No Gastrointestinal History of Gastrointestinal Di: Yes Gastrointestinal Disorders: Chronic Diarrhea Musculoskeletal History of Musculoskeletal Dis: Yes (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) Musculoskeletal Disorders: Amputee (bilateral AKA) Endocrine History of Endocrine Disorders: No HEENT History of HEENT Disorders: No (ALL TEETH REMOVED) Cancer History of Cancer: No Psychosocial History of Psychiatric Problem: No Integumentary History of Skin or Integumenta: Yes (Chronic bilateral posterior leg wounds) Skin/Integumentary Disorders: Psoriasis Blood Transfusions History of Blood Disorders: Yes (DVT'S) Family Medical History Significant Family History: Other Conditions/Hx (No known GI disease, diabetes, HTN, HLD, heart disease, cancer, CVA) Review of Systems-General Constitutional: No chills, No fever, No malaise EENTM: No throat pain, No throat swelling Respiratory: No cough, No orthopnea, No short of breath Cardiovascular: No chest pain Gastrointestinal: No abdominal pain; constipation, diarrhea (chronic, but no stools for 1 week), loss of appetite; No melena, No nausea, No vomiting Genitourinary: No dysuria, No frequency, No hematuria, No hesitancy Musculoskeletal: back pain, muscle pain (bilateral legs) Skin: No hx of skin cancer; other (bilateral leg wounds) Psychiatric/Neurological: Denies Anxiety, Denies Depressed, Denies Headache Physical Exam-General Problems Physical Exam Vital Signs Vital Signs - First Documented 06/20/23 02:31 Temp 36.9 Pulse 94 Resp 16 B/P (MAP) 109/73 (85) Pulse Ox 96 O2 Delivery Room Air Capillary Refill : Less Than 3 Seconds General Appearance: mild distress, other (disheveled, odor of tobacco and infected wounds present) HEENT: PERRL/EOMI; No scleral icterus (R), No scleral icterus (L); other (edentulous) Neck: non-tender, supple; No carotid bruit Respiratory: chest non-tender, lungs clear, no respiratory distress, no accessory muscle use Cardiovascular: regular rate, rhythm, no murmur Peripheral Pulses: 2+ Radial Pulses (R), 2+ Radial Pulses (L) Gastrointestinal: non tender, distended (tympanic); No guarding, No rebound Back: no CVA tenderness, no vertebral tenderness Extremities: other (Bilateral AKA. Right posterior leg with two open wounds, 1x1 cm distally and 2.5x1cm proximally with diffuse erythema to the posterior right leg. Left posterior leg with 2 wounds, 1x1cm distally, large wound with tunneling proximally, diffuse posterior left leg erythema. All wounds are with purulent drainage and odor.) Neurologic/Psychiatric: alert, oriented x 3 Skin: other (see extremities) Lymphatic: no adenopathy (cervical) Data Review Labs Laboratory Tests 06/20/23 03:34: White Blood Count 8.1, Red Blood Count 4.91, Hemoglobin 14.5, Hematocrit 44, Mean Corpuscular Volume 90, Mean Corpuscular Hemoglobin 30, Mean Corpuscular Hemoglobin Concent 33, Red Cell Distribution Width 17.9H, Platelet Count 219, Mean Platelet Volume 8.8L, Immature Granulocyte % (Auto) 0, Neutrophils (%) (Auto) 70, Lymphocytes (%) (Auto) 18, Monocytes (%) (Auto) 8, Eosinophils (%) (Auto) 3, Basophils (%) (Auto) 1, Neutrophils # (Auto) 5.7, Lymphocytes # (Auto) 1.5, Monocytes # (Auto) 0.7, Eosinophils # (Auto) 0.2, Basophils # (Auto) 0.1, I mmature Granulocyte # (Auto) 0.0, Sodium Level 139, Potassium Level 3.1L, Chloride Level 104, Carbon Dioxide Level 21, Anion Gap 14, Blood Urea Nitrogen 7, Creatinine 0.58L, Estimat Glomerular Filtration Rate 124, BUN/Creatinine Ratio 12, Glucose Level 87, Calcium Level 8.[address] ABDOMEN/PELVIS W PROCEDURE: CT abdomen and pelvis with contrast. TECHNIQUE: Multiple contiguous axial images were obtained through the abdomen and pelvis after administration of intravenous contrast. Auto Exposure Controls were utilized during the CT exam to meet ALARA standards for radiation dose reduction. All CT scans use one or more of the following dose optimizing techniques: automated exposure control, MA and/or KvP adjustment based on patient size and exam type or iterative reconstruction. INDICATION: Abdominal pain. Constipation. Abdominal distention. COMPARISON: KUB from earlier same day FINDINGS: Included portions of the lung bases are clear. CT ABDOMEN: Again identified is severe diffuse gaseous distention of the colon. A few colonic air-fluid levels are also noted. No focal transition point of the colon is seen to suggest volvulus or other focal obstruction. Normal appendix cannot be adequately identified, but there is no pericecal inflammation. Small bowel loops are nondilated. The kidneys, adrenal glands, spleen, pancreas, and liver have a normal CT appearance. There is no loculated fluid collection, free fluid or free air within the abdomen. No abnormal mesenteric or retroperitoneal adenopathy is seen. Osseous structures show no acute abnormalities. CT PELVIS: Urinary bladder is unopacified. No calculi are seen within the urinary bladder. There is no loculated fluid collection, free fluid or free air within the pelvis. No abnormal adenopathy is seen. Osseous structures show no acute abnormalities. IMPRESSION: 1. Severe diffuse distention of the colon, but without evidence of focal obstruction or other transition point. Small bowel loops are also nondilated. Findings raise suspicion for potential Rosemary's. ABDOMEN/KUB 1VIEW INDICATION: Constipation. COMPARISON: 05/17/2023 FINDINGS: Two frontal radiographic views of the abdomen were obtained and again show marked amount of gas scattered throughout the colon. Small bowel dilatation is difficult to assess. There is no large collection of free intraperitoneal air. No unexpected radiopaque foreign bodies are seen. Osseous structures show no acute abnormalities. IMPRESSION: 1. Marked diffuse gaseous distention of the colon. Assessment/Plan Assessment/Plan Admission Diagonsis Constipation Assessment/Plan 1. Abdominal distension 2. Constipation 3. Chronic bilateral leg wounds 4. Hx of bilateral AKA 5. Chronic diarrhea 6. Hypokalemia Patient is with significant abdominal distension on exam and on imaging, with radiology concern for Bellmont Syndrome. Patient will be initiated on IV hydration and IV electrolyte replacement. Consider NG tube and/or rectual tube for colonic decompression; consider neostigmine or colonoscopic decompression if there is no improvement. Initiate antibiotics and analgesia for bilateral leg wound management. Recheck CBC, CMP tomorrow, monitoring WBC and electrolyte levels. ALLEY LESTER DO 06/20/23 1058: History of Present Illness History of Present Illness Time Seen by Provider: 10:11 History of Present Illness Surgery asked to consult regarding constipation, possible Rosemary. HPI per ED: Patient is a 43-year-old male with a history of severe peripheral vascular disease, bilateral [id number] amputations, chronic tobacco use, persistent and unremitting medical noncompliance, terrible pressure ulcers to the posterior thighs who presents to the emergency department with buttock/rectal pain and abdominal pain. Patient states that he has taken ibuprofen without any relief of symptoms. He admits to a "glass of vodka" this evening. He denies any fevers or chills. He states he is nauseous. He cannot recall his last bowel movement anywhere from 4 days to a week ago. He states he has been able to eat a little. He denies chest pain or shortness of breath. He is covered in fecal material between the legs and across the open wounds on the posterior thighs and rectum. Vital signs are stable. He insists that he "does what he can" to take care of himself however again he is covered in fecal material and states that must of been present since the last time he had a bowel movement a week ago. He states he has no light in his house and therefore cannot see that he is filthy. He has what appears to be stool under his fingernails. Completely disheveled and foul-smelling. Speaks to this examiner with his eyes closed. Pain is better as long as he doesnt have to move. Timing/Duration: 12-24 Hours Severity: Severe Associated Systoms: Nausea/Vomiting (nausea without vomiting) When I saw pt he complained of distention, constipation and inability to eat. He has B/L AKA, sits in his wheelchair and stools; leading to bilateral wounds on the back of his legs. He has not had BM in over a week. Allergies and Home Medications Allergies Coded Allergies: No Known Drug Allergies (Unverified , 08/04/21) He denies allergies to drugs and food, says he has seasonal allergies Patient Home Medication List Home Medication List Reviewed: Yes Miconazole Nitrate (Lotrimin AF) 2 % Powder, 0 GM TOP BID Prescribed by: ATIF LIND on 05/27/23 0932 Pregabalin (Pregabalin) 75 Mg Capsule, 75 MG PO BID PRN for PAIN-BREAKTHROUGH Prescribed by: ATIF LIND on 05/27/23932 Discontinued Medications Cyclobenzaprine HCl (Cyclobenzaprine HCl) 5 Mg Tablet, 5 MG PO Q8H PRN for MUSCLE SPASMS, (Reported) Discontinued Reason: No Longer Taking Entered as Reported by: JO DAVISON on 03/03/23 1349 Last Action: Discontinued Oxycodone Hcl (Oxyir Tablet) 5 Mg Tab, 5 MG PO Q4H PRN for PAIN-SEVERE (8-10) Discontinued Reason: No Longer Taking Prescribed by: ATIF LIND on 05/27/23932 Last Action: Discontinued Past Hwzmgfy-Vjzxal-Aedkms Hx Patient Social History Smoking Status: Current Everyday Smoker (29 years) Type Used: Cigarettes Recent Hopitalizations: Yes Alcohol Use?: Yes (1 styrofoam cup of vodka daily) Surgeries History of Surgeries: Yes Surgeries: Abdominal (hernia, repaired at age 5), Amputation, Orthopedic Respiratory History of Respiratory Disorde: No Cardiovascular History of Cardiac Disorders: Yes (PAD, DVTs) Neurological History of Neurological Disord: Yes Neurological Disorders: Neuropathy Genitourinary History of Genitourinary Disor: No Gastrointestinal History of Gastrointestinal Di: Yes Gastrointestinal Disorders: Chronic Diarrhea Musculoskeletal History of Musculoskeletal Dis: Yes (Bilateral foot gangrene with multiple toes removed in 2010) Musculoskeletal Disorders: Amputee (bilateral AKA) Endocrine History of Endocrine Disorders: No HEENT History of HEENT Disorders: No Loss of Vision: Denies Hearing Impairment: Denies Cancer History of Cancer: No Psychosocial History of Psychiatric Problem: No Integumentary History of Skin or Integumenta: Yes (Chronic bilateral posterior leg wounds) Family Medical History Significant Family History: Other Conditions/Hx (No known GI disease, diabetes, HTN, HLD, heart disease, cancer, CVA) Review of Systems-General Constitutional: No chills, No fever, No malaise EENTM: No throat pain, No throat swelling Respiratory: No cough, No orthopnea, No short of breath Cardiovascular: No chest pain, No palpitations Gastrointestinal: No abdominal pain; constipation, diarrhea (chronic, but no stools for 1 week), loss of appetite; No melena, No nausea, No vomiting Genitourinary: No dysuria, No frequency, No hematuria, No hesitancy Musculoskeletal: No back pain; muscle pain (bilateral legs) Skin: No hx of skin cancer; other (bilateral leg wounds) Psychiatric/Neurological: Denies Anxiety, Denies Depressed, Denies Headache Physical Exam-General Problems Physical Exam General Appearance: mild distress, other (disheveled, odor of tobacco and infected wounds present) Eyes: Bilateral Eye PERRL, Bilateral Eye EOMI HEENT: pharynx normal; No scleral icterus (R), No scleral icterus (L) Neck: non-tender, supple; No carotid bruit Respiratory: chest non-tender, lungs clear, normal breath sounds, no respiratory distress, no accessory muscle use Cardiovascular: regular rate, rhythm, no murmur Gastrointestinal: non tender, distended (tympanic); No guarding, No rebound Rectal: deferred Back: no CVA tenderness, no vertebral tenderness Extremities: other (Bilateral AKA. Right posterior leg with two open wounds, 1x1 cm distally and 2.5x1cm proximally with diffuse erythema to the posterior right leg. Left posterior leg with 2 wounds, 1x1cm distally, large wound with tunneling proximally, diffuse posterior left leg erythema. All wounds are with purulent drainage and odor.) Neurologic/Psychiatric: alert, oriented x 3 Skin: other (see extremities) Lymphatic: no adenopathy (cervical) Assessment/Plan Assessment/Plan Assessment/Plan 1. Abdominal distension - secondary to dilated colon 2. Constipation 3. Chronic bilateral leg wounds 4. Hx of bilateral AKA 5. Chronic diarrhea 6. Hypokalemia I reviewed the CT myself and spoke with ED physician as well as Dr. Fernandez. 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 Patient will be initiated on IV hydration and IV electrolyte replacement. I discussed with pt, at this point I don't think his large bowel is functioning at all. I believe he needs a subtotal colectomy with end ileostomy. His colon is not going to start working and diverting him will help with wound healing and avoid prevent future ulceration. Plan to take him to the OR for surgery. Dr. Fernandez and I discussed the risks and complications not limited to pain, bleeding, infection, scar, damage to bowel and need for further procedure. All questions answered to his satisfaction. Will get consent for Sub-Total Colectomy with end ileostomy and all other indicated procedures. Supervisory-Addendum Brief Verification & Attestation Participated in pt care: history, MDM, physical Personally performed: exam, history, MDM, supervision of care Care discussed with: Medical Student Procedures: n/a Verification and Attestation of Medical Student E/M Service A medical student performed and documented this service. I then reviewed and verified all information documented by the medical student and made modifications to such information, when appropriate. I personally performed a physical exam, medical decision making and then discussed any differences between the notes and made revisions as necessary to create one note. Alley Lester , 06/20/23 , 11:10 ZOE PALMER Jun 20, 2023 08:32 ALLEY LESTER DO Jun 20, 2023 10:58
[2023-06-20] MEDS: NS + KCL 20 MEQ/L 1000 ML 1,000 ML IV SCH ×2 (08:45→17:42)
[2023-06-20] MEDS ORDERED: HYPOCHLOROUS ACID/NaCl WOUND SOLN 250 ML IR SCH (11:15)
--- NOTE | 2023-06-20 11:44 | Wound Care Assessment ---
Wound Care Assessment Date Seen by Provider: Jun 20, 2023 Time Seen by Provider: 11:39 Chief Complaint MASD bilateral posterior thigh HPI This 43 year old man presents once again with chronic ulcers to bilateral posterior thighs. He again has been non-compliant with wound care recommen dations, smoking cessation, ETOH cessation, and basic hygiene recommendations. He again is caked in fecal matter to entirety of posterior leg. On last admit he denied that he did not clean himself despite obvious evidence on exam. He admitted that he can sense when he needs to have a bowel movement and yet continues to have incontinence and failure to clean himself following. I have had many conversations with him about these issues in the past. His amputations and continued wounds are a direct result of his lifestyle choices and he has made it very clear he has no desire for change in the past. He thinks that having an ostomy will resolve these issues. His posterior ulcers may heal as a result of lack of fecal matter (this remains to be seen) but he will then have to care for his ostomy. I am not convinced he will do this based on his past pattern of compliance but we are with minimal options at this point. Orders for dressings as below. Past Medical History: Admits Deep Vein Thrombosis, Admits Peripheral Artery Disease Smoking Status: Current Everyday Smoker (29 years) Alcohol Use: Regular Use Exam Vital Signs Date Time Temp Pulse Resp B/P (MAP) Pulse Ox O2 Delivery O2 Flow Rate FiO2 06/20/23 07:55 37.4 97 18 108/57 (74) 94 Room Air Capillary Refill : Less Than 3 Seconds General Appearance: obese HEENT: other (hearing normal) Neck: full range of motion Respiratory: no respiratory distress Gastrointestinal: distended Extremities: other (edema to b/l thighs) Neurologic/Psychiatric: alert, normal mood/affect, oriented x 3, other (irritable affect) Skin Character: erythema, swelling Wound assessment: 1. R. thigh: 7x1.5x0.8cm. The epithelialization is none. There is no tunneling or undermining. Drainage is large and serosanguinous. Granulation is none. Necrotic is large with slough. Stool caked to periwound 2. L. Thigh: 9.8x5x1.2. The epithelialization is none. There is no tunneling or undermining. Drainage is large and serosanguinous. Granulation is none. Necrotic is large with slough. Stool caked to periwound Results Laboratory Tests 06/20/23 03:34: White Blood Count 8.1, Red Blood Count 4.91, Hemoglobin 14.5, Hematocrit 44, Mean Corpuscular Volume 90, Mean Corpuscular Hemoglobin 30, Mean Corpuscular H emoglobin Concent 33, Red Cell Distribution Width 17.9H, Platelet Count 219, Mean Platelet Volume 8.8L, Immature Granulocyte % (Auto) 0, Neutrophils (%) (Auto) 70, Lymphocytes (%) (Auto) 18, Monocytes (%) (Auto) 8, Eosinophils (%) (Auto) 3, Basophils (%) (Auto) 1, Neutrophils # (Auto) 5.7, Lymphocytes # (Auto) 1.5, Monocytes # (Auto) 0.7, Eosinophils # (Auto) 0.2, Basophils # (Auto) 0.1, Immature Granulocyte # (Auto) 0.0, Sodium Level 139, Potassium Level 3.1L, Chloride Level 104, Carbon Dioxide Level 21, Anion Gap 14, Blood Urea Nitrogen 7, Creatinine 0.58L, Estimat Glomerular Filtration Rate 124, BUN/Creatinine Ratio 12, Glucose Level 87, Calcium Level 8.5 Assessment/Plan/Dx Assessment: 1. Bilateral posterior full thickness thigh ulcers 2. MASD 3. Fecal incontinence 4. Very poor hygiene 5. Noncompliance in all aspects of care 6. PAD s/p bilat. amputations with numerous revisions due to noncompliance in care 7. ETOH abuse 8. Tobaccoism Plan: 1. Cleanse with Vashe. Barrier ointment and miconazole to surrounding. Silver alginate hydrofiber to open areas. Allevyn BFD. Change daily. Wound culture (likely to reveal contamination) 2. Unlikley to improve without change in hygiene 3. Unlikely to change in current situation 4. Unlikely to change 5. Counseled many times in past with no changes in behavior 6. Defer to primary team 7. Cessation advisable 8. Cessaiton advisable HARLEEN SMITH MD Jun 20, 2023 11:44
[2023-06-20] MEDS ORDERED: ONDANSETRON INJECTION 4 MG/2 ML (SDV) ONE (12:57)
[2023-06-20] MEDS ORDERED: LIDOCAINE PF 2% 5 ML VIAL ONE (12:57)
[2023-06-20] MEDS ORDERED: SEVOFLURANE (ULTANE) 15 ML INHAL SOLN ONE ×2 (12:57→14:29)
[2023-06-20] MEDS ORDERED: proPOfol INJECTION 200 MG/20 ML VIAL IV ONE (12:57)
[2023-06-20] MEDS ORDERED: MIDAZOLAM INJ 2 MG/2 ML VIAL ONE (12:58)
[2023-06-20] MEDS ORDERED: fentaNYL INJECTION 100 MCG/2 ML VIAL ONE (12:58)
[2023-06-20] MEDS: LACTATED RINGERS 1,000 ML 1,000 ML IV PRN ×3 (13:03→15:19)
[2023-06-20] MEDS ORDERED: ceFAZolin INJECTION 2,000 MG ONE (13:11)
[2023-06-20] MEDS ORDERED: metroNIDAZOLE 500MG/100ML IVPB 100 ML ONE (13:12)
[2023-06-20] MEDS ORDERED: NS (IVPB) 50 ML 50 ML ONE (13:12)
[2023-06-20] MEDS ORDERED: ceFAZolin INJECTION 2,000 MG in NS (IVPB) 50 ML 50 ML IV NR (13:15)
[2023-06-20] MEDS ORDERED: metroNIDAZOLE 500MG/100ML IVPB 100 ML IV NR (13:15)
[2023-06-20] MEDS ORDERED: SUCCINYLCHOLINE INJ 20 MG/1 ML 10 ML VIAL ONE (13:53)
[2023-06-20] MEDS ORDERED: ROCURONIUM 50 MG/5 ML VIAL IV ONE (13:53)
[2023-06-20] MEDS ORDERED: ROPIVACAINE 5 MG/ML 30ML VIAL ONE (14:45)
[2023-06-20] MEDS ORDERED: NEOSTIGMINE 1 MG/1ML 10 ML VIAL ONE (14:45)
[2023-06-20] MEDS ORDERED: GLYCOPYRROLATE INJ 0.2 MG/ML 2 ML VIAL ONE (14:46)
[2023-06-20] MEDS ORDERED: KETOROLAC INJ 30 MG/ML VIAL ONE (14:48)
[2023-06-20] MEDS ORDERED: HYDROmorphone INJECTION 2 MG/ML VIAL ONE (14:53)
[2023-06-20] MEDS ORDERED: HYDROmorphone INJECTION 2 MG/ML VIAL IV ONE (15:15)
--- NOTE | 2023-06-20 15:17 | Progress Note-Post Operative ---
Post-Operative Progess Note Surgeon (s)/Commercial Announcer (s) Surgeon CHASE GONZALEZ DO Commercial Announcer: Dr. Javier to assist in retraction dissection and closure. Pre-Operative Diagnosis colonic pseudoobstruction Post-Operative Diagnosis same Procedure & Operative Findings Date of Procedure 06/20/23 Procedure Performed/Findings subtotal colectomy with end ileostomy Anesthesia Type general Estimated Blood Loss Estimated blood loss (mL): minimal Specimens/Packing Specimens Removed colon CHASE GONZALEZ DO Jun 20, 2023 15:17
[2023-06-20] MEDS ORDERED: morphine INJ 10 MG/ML 1ML (SYR OR VIAL) IVP PRN (15:30)
[2023-06-20] MEDS: metroNIDAZOLE 500MG/100ML IVPB 100 ML IV SCH (17:43)
[2023-06-20] MEDS: ceFAZolin INJECTION 2,000 MG in NS (IVPB) 50 ML 50 ML IV SCH (17:43)
[2023-06-20] MEDS ORDERED: NS IV 500 ML 500 ML IV PRN (19:15)
[2023-06-20] MEDS: RT-ALBUTEROL SULF 2.5 MG/3 ML PRE-MIX VIAL INH SCH (20:33)
[2023-06-20] MEDS: morphine INJ 4 MG/ML 1 ML (VIAL/SYRINGE) IV PRN ×2 (20:35→22:45)
[2023-06-20] MEDS: MICONAZOLE 2% POWDER 90 GM TOP SCH (21:08)
[2023-06-21] VITALS: BP 103/58
--- NOTE | 2023-06-21 01:46 | OPERATIVE REPORT ---
DATE OF SERVICE: 06/20/2023 PREOPERATIVE DIAGNOSIS: Colonic pseudoobstruction. POSTOPERATIVE DIAGNOSIS: Colonic pseudoobstruction. PROCEDURE: Subtotal colectomy with end ileostomy. SURGEON: Lee Fernandez DO CHRO: Bulmaro Javier DO., assisted in retraction, dissection, and closure. ANESTHESIA: General. ESTIMATED BLOOD LOSS: Minimal. COMPLICATIONS: None. INDICATIONS: The patient is a 43-year-old male with bilateral amputations. 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 He has been having issues with colonic distention and colonic pseudoobstruction. He had a recent admission for similar issues. The patient was discussed risks and benefits of having a subtotal colectomy with end ileostomy performed. He understands all risks and benefits and wishes to proceed. He understands that this will also help him with long-term care. He is in agreement with this. PROCEDURE IN DETAIL: The patient was taken to the operating suite, prepped and draped in sterile fashion. Timeout was performed. Midline incision was made. Cautery was used to dissect down through subcutaneous tissues and the fascia was divided, peritoneum was then divided and the abdomen was entered. Colonic distention was up to approximately 10 cm in diameter present. Gently mobilizing the left and right colon along the white line of Toldt and then making the colon a midline structure. LigaSure was then used to divide the mesentery. Around the distal ileum, this was dissected around with blunt and cautery dissection. A JEANIE stapler was fired across it and the right colon portion was removed. Dissection was taken down to the rectosigmoid junction, which was then dissected around and a linear JEANIE stapler was then fired across the rectosigmoid. The colon was removed in its entirety. The abdomen was then irrigated and suctioned with copious amounts of irrigation. The fascia was then closed using 1-0 looped PDS, but prior to this, the skin and subcutaneous tissue was removed through the right side of the abdomen for ileostomy creation. This was taken down to the anterior fascia, which was then divided in a cruciate fashion. The muscle was divided and the posterior fascia was opened and one finger dilated. Through that incision, the end of the ileum was brought up through this and then, as noted before, the fascia was then closed. The wound was irrigated and the skin was then closed with chuckie. Sterile bandage was placed, the staple line of the distal ileum was then removed and the ileostomy was brooked in the normal fashion using 3-0 Vicryls. The abdomen was then washed and dried and sterile bandages were applied. An ileostomy appliance was applied. The patient was taken to recovery room in stable condition. Job ID: [id number] DocumentID: [id number] Dictated Date: 06/20/2023 15:36:33 Frame Trimmer Date: 06/20/2023 22:12:00 Dictated By: DO RAVINDER KEITH
[2023-06-21] MEDS: ceFAZolin INJECTION 2,000 MG in NS (IVPB) 50 ML 50 ML IV SCH (03:00)
[2023-06-21] MEDS: metroNIDAZOLE 500MG/100ML IVPB 100 ML IV SCH (03:00)
[2023-06-21] MEDS: morphine INJ 4 MG/ML 1 ML (VIAL/SYRINGE) IV PRN ×3 (03:00→08:03)
[2023-06-21 04:00] VITALS: BP 118/63
[2023-06-21] MEDS: NS + KCL 20 MEQ/L 1000 ML 1,000 ML IV SCH ×2 (04:19→04:39)
[2023-06-21 05:46] LABS: HEMATOCRIT 36 % (40-54); HEMOGLOBIN 11.5 g/dL (13.3-17.7); MEAN CORPUSCULAR HEMOGLOBIN 29 pg (25-34); MEAN CORPUSCULAR HGB CONC 32 g/dL (32-36); MEAN CORPUSCULAR VOLUME 91 fL (80-99); MEAN PLATELET VOLUME 9.4 fL (9.0-12.2); PLATELET COUNT 190 10^3/uL (130-400); WHITE BLOOD COUNT 7.9 10^3/uL (4.3-11.0)
[2023-06-21 06:05] LABS: CALCIUM 7.7 MG/DL (8.5-10.1)
[2023-06-21 06:09] LABS: PHOSPHORUS 2.8 MG/DL (2.3-4.7)
[2023-06-21] MEDS: POTASSIUM BICARB 20 MEQ effervescent TABLET PO SCH (06:09)
[2023-06-21] MEDS: POTASSIUM CL 10MEQ/50ML IVPB 50 ML IV SCH (06:09)
[2023-06-21] MEDS: MAGNESIUM 1 GM/100 ML IVPB 100 ML IV SCH ×5 (06:09→11:29)
[2023-06-21 06:10] LABS: CREATININE SERUM 0.55 MG/DL (0.60-1.30)
[2023-06-21] MEDS: POTASSIUM CHLORIDE 20 MEQ TABLET PO SCH (06:10)
[2023-06-21 06:12] LABS: MAGNESIUM 1.6 MG/DL (1.6-2.4)
[2023-06-21 07:12] VITALS: BP 116/61
[2023-06-21] MEDS: RT-ALBUTEROL SULF 2.5 MG/3 ML PRE-MIX VIAL INH SCH ×2 (07:14→21:54)
--- NOTE | 2023-06-21 07:40 | Progress Note - Surgery ---
KARLOS GUNN 06/21/23 0740: Subjective Date Seen by a Provider: Jun 21, 2023 Time Seen by a Provider: 07:35 Subjective/Events-last exam Patient is post op subtotal colectomy with end ileostomy. Patient reports an 8/10 pain that is not well-controlled. Reports a burning sensation throughout the abdomen, and that the pain medication wears off very quickly. Reports not resting because of the increased pain. Patient requesting liquids and additional pain medication. 60 mL into the colostomy bag since last night. Improved distention. Focused Exam Sepsis Stage: Ruled Out Respiratory: No Accessory Muscle Use, No Respiratory Distress Cardiovascular: No Edema, Normal Peripheral Pulses Peripheral Pulses: 2+ Radial Pulses (R), 2+ Radial Pulses (L) Skin: normal color, warm/dry, ulcerations (posterior thigh) Objective Exam Vital Signs Date Time Temp Pulse Resp B/P (MAP) Pulse Ox O2 Delivery O2 Flow Rate FiO2 06/21/23 07:15 94 Room Air 06/21/23 07:12 37.5 90 20 116/61 (79) 94 Room Air 06/21/23 04:47 37.7 06/21/23 04:00 38.1 96 18 118/63 (81) 94 Room Air 06/21/23 00:00 37.3 83 18 103/58 (73) 95 Room Air 06/20/23 20:37 94 Room Air 06/20/23 20:22 36.9 81 16 112/61 (78) 95 Room Air 06/20/23 20:00 Room Air 06/20/23 16:20 37.0 87 16 130/74 (92) 93 Room Air 06/20/23 15:55 Room Air 06/20/23 15:52 36.9 101 99 06/20/23 15:50 37.3 20 129/84 (99) 95 Room Air 06/20/23 15:40 16 131/80 (97) 99 Room Air 06/20/23 15:37 Room Air 06/20/23 15:30 20 129/83 (98) 100 OxyMask 2.00 06/20/23 15:22 OxyMask 4.00 06/20/23 15:20 22 128/78 (95) 100 OxyMask 4.00 06/20/23 15:10 20 129/75 (93) 100 OxyMask 4.00 06/20/23 15:07 36.9 16 130/80 (97) 100 OxyMask 6.00 06/20/23 15:07 OxyMask 6.00 06/20/23 14:30 Room Air 06/20/23 12:13 37.4 101 20 113/70 (84) 93 Room Air 06/20/23 07:55 37.4 97 18 108/57 (74) 94 Room Air I & O 06/21/23 07:00 Intake Total 2550 ml Output Total 1355 ml Balance 1195 ml Capillary Refill : Less Than 3 Seconds General Appearance: No Apparent Distress, WD/WN HEENT: PERRL/EOMI, Pharynx Normal Neck: Full Range of Motion, Normal Inspection, Non Tender Respiratory: No Accessory Muscle Use, No Respiratory Distress Cardiovascular: Regular Rate, Rhythm, No JVD, No Murmur, Tachycardia (95bpm) Peripheral Pulses: 2+ Radial Pulses (R), 2+ Radial Pulses (L) Gastrointestinal: no organomegaly Extremity: Normal Range of Motion, Non Tender, Other (Bilateral leg amputee) Neurologic/Psychiatric: Alert, Oriented x3, No Motor/Sensory Deficits Skin: Normal Color, Warm/Dry, Other (patient has erythema to the lower buttocks; open wounds to the posterior bilateral thighs with surrounding erythema) Lymphatic: No Adenopathy Results Lab Laboratory Tests 06/21/23 05:16: White Blood Count 7.9, Red Blood Count 3.91L, Hemoglobin 11.5#L, Hematocrit 36L, Mean Corpuscular Volume 91, Mean Corpuscular Hemoglobin 29, Mean Corpuscular Hemoglobin Concent 32, Red Cell Distribution Width 18.2H, Platelet Count 190, Mean Platelet Volume 9.4, Sodium Level 140, Potassium Level 4.0, Chloride Level 111H, Carbon Dioxide Level 18L, Anion Gap 11, Blood Urea Nitrogen 5L, Creatinine 0.55L, Estimat Glomerular Filtration Rate 126, BUN/Creatinine Ratio 9, Glucose Level 64L, Calcium Level 7.7L, Phosphorus Level 2.8, Magnesium Level 1.6 Assessment/Plan Assessment/Plan Assessment/Plan Subtotal colectomy with end ileostomy Bilateral leg wounds Hx of bilateral AKA Chronic diarrhea Hypokalemia Consult Wound Care Clamp NG Tube NPO Ice chips as requested IV Fluids Pain Control IS CHASE FERNANDEZ DO 06/21/23 1256: Subjective Subjective/Events-last exam Pain not quite controlled. Has some ileostomy output. Denies n/v fever sweats chills shortness of breath or chest pain. Objective Exam General Appearance: No Apparent Distress, WD/WN HEENT: PERRL/EOMI, Pharynx Normal Neck: Normal Inspection, Non Tender Respiratory: Chest Non Tender, No Accessory Muscle Use, No Respiratory Distress Cardiovascular: Regular Rate, Rhythm, No JVD Gastrointestinal: no organomegaly, other (ileostomy pink and with some output) Extremity: Normal Range of Motion, Non Tender, Other (Bilateral leg amputee) Neurologic/Psychiatric: Alert, Oriented x3 Skin: Normal Color, Warm/Dry Lymphatic: No Adenopathy Assessment/Plan Assessment/Plan Assessment/Plan Colonic pseudoobstruction s/p Subtotal colectomy with end ileostomy Bilateral leg wounds Hx of bilateral AKA Chronic diarrhea Hypokalemia Consult Wound Care-ileostomy care/teaching dc ng tube clears Ice chips as requested IV Fluids 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 I reviewed and verified all information documented by the medical student and made modifications to such information, when appropriate. I personally performed the physical exam and medical decision making. Chase Fernandez, Jun 21, 2023,12:56 KARLOS GUNN Jun 21, 2023 07:40 CHASE FERNANDEZ DO Jun 21, 2023 12:56
[2023-06-21] MEDS: MICONAZOLE 2% POWDER 90 GM TOP SCH ×2 (09:00→21:44)
--- NOTE | 2023-06-21 10:00 | Anesthesia-General Post-Op ---
General Patient Condition Mental Status/LOC: Same as Preop Cardiovascular: Satisfactory Nausea/Vomiting: Absent Respiratory: Satisfactory Pain: Controlled Complications: Absent Post Op Complications Complications None Follow Up Care/Instructions Patient Instructions None needed. Anesthesia/Patient Condition Patient Condition Patient is doing well, having pain which unfortunately is to be expected, stable vital signs, no apparent adverse anesthesia problems. No complications reported per nursing. CONRAD CEBALLOS DO Jun 21, 2023 10:00
[2023-06-21] MEDS: morphine PCA 100 MG/100 ML BAG IV PRN (10:26)
[2023-06-21 11:42] VITALS: BP 117/56
--- NOTE | 2023-06-21 12:52 | Physical Therapy Progress Note ---
Therapy Progress Note PT evaluation attempted. Patient refused secondary to pain. DINO CEBALLOS PT Jun 21, 2023 12:52
[2023-06-21 15:28] VITALS: BP 116/74
[2023-06-21 19:10] VITALS: BP 116/75
[2023-06-22] VITALS (7 sets, daily range): BP systolic 112–131; BP diastolic 72–86
[2023-06-22] MEDS: NS + KCL 20 MEQ/L 1000 ML 1,000 ML IV SCH ×3 (00:28→19:09)
[2023-06-22] MEDS: RT-ALBUTEROL SULF 2.5 MG/3 ML PRE-MIX VIAL INH PRN ×2 (01:04→12:44)
[2023-06-22 05:49] LABS: HEMATOCRIT 39 % (40-54); HEMOGLOBIN 12.4 g/dL (13.3-17.7); MEAN CORPUSCULAR HEMOGLOBIN 30 pg (25-34); MEAN CORPUSCULAR HGB CONC 32 g/dL (32-36); MEAN CORPUSCULAR VOLUME 92 fL (80-99); MEAN PLATELET VOLUME 9.5 fL (9.0-12.2); PLATELET COUNT 190 10^3/uL (130-400)
[2023-06-22 06:07] LABS: POTASSIUM 4.1 MMOL/L (3.6-5.0)
[2023-06-22 06:08] LABS: CALCIUM 7.8 MG/DL (8.5-10.1)
[2023-06-22] MEDS: POTASSIUM CL 10MEQ/50ML IVPB 50 ML IV SCH (06:10)
[2023-06-22] MEDS: POTASSIUM CHLORIDE 20 MEQ TABLET PO SCH (06:10)
[2023-06-22] MEDS: POTASSIUM BICARB 20 MEQ effervescent TABLET PO SCH (06:10)
[2023-06-22 06:13] LABS: CREATININE SERUM 0.48 MG/DL (0.60-1.30); PHOSPHORUS 2.2 MG/DL (2.3-4.7)
[2023-06-22 06:15] LABS: MAGNESIUM 1.9 MG/DL (1.6-2.4)
[2023-06-22] MEDS: MAGNESIUM 1 GM/100 ML IVPB 100 ML IV SCH ×3 (06:21→07:28)
[2023-06-22] MEDS ORDERED: MAGNESIUM 1 GM/100 ML IVPB 200 ML IV ONE (06:33)
--- NOTE | 2023-06-22 07:18 | Progress Note - Surgery ---
KARLOS GUNN 06/22/23 0718: Subjective Date Seen by a Provider: Jun 22, 2023 Time Seen by a Provider: 07:17 Subjective/Events-last exam Patient is post op subtotal colectomy with end ileostomy. Patient reports pain is improved. Tolerating liquids- however- too much can create nausea. Patient reports having a cough since yesterday with clear discharge. Pt reports slight fever yesterday. Denies chest pain. Focused Exam Respiratory: No Accessory Muscle Use, No Respiratory Distress Cardiovascular: No Edema, Normal Peripheral Pulses Peripheral Pulses: 2+ Radial Pulses (R), 2+ Radial Pulses (L) Skin: normal color, warm/dry Objective Exam Vital Signs Date Time Temp Pulse Resp B/P (MAP) Pulse Ox O2 Delivery O2 Flow Rate FiO2 06/22/23 04:00 37.4 92 18 129/86 (100) 95 Room Air 06/22/23 01:05 96 Room Air 06/22/23 00:00 37.2 85 16 112/84 (93) 95 Room Air 06/21/23 21:41 Room Air 06/21/23 19:10 37.2 88 18 116/75 (89) 96 Room Air 06/21/23 15:28 37.1 92 18 116/74 (88) 94 Room Air 06/21/23 11:42 37.6 97 18 117/56 (76) 95 Room Air 06/21/23 08:00 Room Air I & O 06/22/23 07:00 Intake Total 1360 ml Output Total 1475 ml Balance -115 ml Capillary Refill : Less Than 3 Seconds General Appearance: No Apparent Distress, WD/WN HEENT: PERRL/EOMI, Pharynx Normal Neck: Normal Inspection, Non Tender Respiratory: Chest Non Tender, No Accessory Muscle Use, No Respiratory Distress Cardiovascular: Regular Rate, Rhythm, No JVD, Normal Peripheral Pulses Peripheral Pulses: 2+ Radial Pulses (R), 2+ Radial Pulses (L) Gastrointestinal: soft, no organomegaly, other (ileostomy pink and with some output) Extremity: Normal Range of Motion, Non Tender, Other (Bilateral leg amputee) Neurologic/Psychiatric: Alert, Oriented x3, No Motor/Sensory Deficits Skin: Normal Color, Warm/Dry Lymphatic: No Adenopathy Results Lab Laboratory Tests 06/22/23 05:22: White Blood Count 8.0, Red Blood Count 4.20L, Hemoglobin 12.4L, Hematocrit 39L, Mean Corpuscular Volume 92, Mean Corpuscular Hemoglobin 30, Mean Corpuscular Hemoglobin Concent 32, Red Cell Distribution Width 17.8H, Platelet Count 190, Mean Platelet Volume 9.5, Sodium Level 136, Potassium Level 4.1, Chloride Level 106, Carbon Dioxide Level 22, Anion Gap 8, Blood Urea Nitrogen 2L, Creatinine 0.48L, Estimat Glomerular Filtration Rate 131, BUN/Creatinine Ratio 4, Glucose Level 86, Calcium Level 7.8L, Phosphorus Level 2.2L, Magnesium Level 1.9 Microbiology 06/20/23 MRSA Screen - Final, Complete MRSA not isolated 06/20/23 Gram Stain - Final, Resulted 06/20/23 Wound Culture - Preliminary, Resulted Mixed Bacterial Aleta Gram Negative Bacillus 1 Assessment/Plan Assessment/Plan Assessment/Plan Colonic pseudoobstruction s/p Subtotal colectomy with end ileostomy Bilateral leg wounds Hx of bilateral AKA Chronic diarrhea Hypokalemia Consult Wound Care-ileostomy care/teaching Minimal liquids IV Fluids 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 Ileostomy functioning some. Tolerating liquids. Denies n/v fever sweats chills shortness of breath or chest pain. Objective Exam General Appearance: No Apparent Distress, WD/WN HEENT: PERRL/EOMI, Normal ENT Inspection Neck: Normal Inspection, Non Tender Respiratory: Chest Non Tender, Normal Breath Sounds, No Accessory Muscle Use Cardiovascular: Regular Rate, Rhythm, No JVD Gastrointestinal: soft, other (ileostomy pink and with some output) Extremity: Normal Range of Motion, Non Tender, Other (Bilateral leg aka) Neurologic/Psychiatric: Alert, Oriented x3, No Motor/Sensory Deficits Skin: Normal Color, Warm/Dry Lymphatic: No Adenopathy Assessment/Plan Assessment/Plan Assessment/Plan Colonic pseudoobstruction s/p Subtotal colectomy with end ileostomy Bilateral leg wounds Hx of bilateral AKA Chronic diarrhea Hypokalemia Consult Wound Care-ileostomy care/teaching Minimal liquids IV Fluids Pain Control-roll table operator pump Continue IS Supervisory-Addendum Brief Verification & Attestation Participated in pt care: history, MDM, physical Personally performed: exam, history, MDM, supervision of care Care discussed with: Medical Student Procedures: n/a Results interpretation: Verified all documentation Verification and Attestation of Medical Student E/M Service A medical student performed and documented this service in my presence. I reviewed and verified all information documented by the medical student and made modifications to such information, when appropriate. I personally performed the physical exam and medical decision making. Chase Fernandez, Jun 22, 2023,12:01 KARLOS GUNN Jun 22, 2023 07:18 CHASE FERNANDEZ DO Jun 23, 2023 16:01
[2023-06-22] MEDS: MICONAZOLE 2% POWDER 90 GM TOP SCH ×2 (07:28→20:12)
[2023-06-22] MEDS: RT-ALBUTEROL SULF 2.5 MG/3 ML PRE-MIX VIAL INH SCH ×2 (08:10→21:06)
[2023-06-23] MEDS: ONDANSETRON INJECTION 4 MG/2 ML (SDV) IV PRN ×4 (01:29→21:47)
[2023-06-23 03:30] VITALS: BP 132/93
[2023-06-23] MEDS: NS + KCL 20 MEQ/L 1000 ML 1,000 ML IV SCH ×2 (04:02→16:21)
[2023-06-23 05:13] LABS: HEMATOCRIT 46 % (40-54); HEMOGLOBIN 15.1 g/dL (13.3-17.7); MEAN CORPUSCULAR HEMOGLOBIN 30 pg (25-34); MEAN CORPUSCULAR HGB CONC 33 g/dL (32-36); MEAN CORPUSCULAR VOLUME 92 fL (80-99); MEAN PLATELET VOLUME 9.5 fL (9.0-12.2); PLATELET COUNT 270 10^3/uL (130-400); WHITE BLOOD COUNT 10.1 10^3/uL (4.3-11.0)
[2023-06-23 05:29] LABS: ALBUMIN 2.9 GM/DL (3.2-4.5); POTASSIUM 5.1 MMOL/L (3.6-5.0)
[2023-06-23 05:31] LABS: CALCIUM 8.7 MG/DL (8.5-10.1)
[2023-06-23 05:32] LABS: TOTAL PROTEIN 5.9 GM/DL (6.4-8.2)
[2023-06-23 05:34] LABS: BILIRUBIN,TOTAL 0.5 MG/DL (0.1-1.0)
[2023-06-23 05:35] LABS: PHOSPHORUS 4.2 MG/DL (2.3-4.7)
[2023-06-23 05:36] LABS: CREATININE SERUM 0.49 MG/DL (0.60-1.30)
[2023-06-23 05:39] LABS: MAGNESIUM 1.9 MG/DL (1.6-2.4)
[2023-06-23] MEDS: POTASSIUM CL 10MEQ/50ML IVPB 50 ML IV SCH (05:40)
[2023-06-23] MEDS: POTASSIUM BICARB 20 MEQ effervescent TABLET PO SCH (05:41)
[2023-06-23] MEDS: POTASSIUM CHLORIDE 20 MEQ TABLET PO SCH (05:41)
[2023-06-23] MEDS: MAGNESIUM 1 GM/100 ML IVPB 100 ML IV SCH ×3 (05:42→10:34)
--- NOTE | 2023-06-23 07:39 | Progress Note - Surgery ---
KARLOS GUNN 06/23/23 0739: Subjective Date Seen by a Provider: Jun 23, 2023 Time Seen by a Provider: 07:38 Subjective/Events-last exam Patient is post op subtotal colectomy with end ileostomy. Patient reports pain is improved. Tolerating liquids. Cough improved. Using IS regularly. Patient refuses to move from the bed. Denies fever, chest pain, or shortness of breath. Focused Exam Sepsis Stage: Ruled Out Respiratory: Chest Non Tender, No Accessory Muscle Use, No Respiratory Distress Cardiovascular: Regular Rate, Rhythm, Normal Peripheral Pulses Peripheral Pulses: 2+ Radial Pulses (R), 2+ Radial Pulses (L) Skin: normal color, warm/dry Objective Exam Vital Signs Date Time Temp Pulse Resp B/P (MAP) Pulse Ox O2 Delivery O2 Flow Rate FiO2 06/23/23 06:00 18 06/23/23 03:30 36.3 86 24 132/93 (106) 97 Room Air 06/22/23 23:37 36.4 84 16 131/80 (97) 97 Room Air 06/22/23 21:07 94 Room Air 06/22/23 20:10 Room Air 06/22/23 19:14 37.4 93 16 119/74 (89) 92 Room Air 06/22/23 15:56 36.1 90 18 114/79 (91) 95 Room Air 06/22/23 12:45 97 Room Air 06/22/23 12:00 36.8 85 16 116/79 (91) 96 Room Air 06/22/23 08:10 91 Room Air 06/22/23 08:00 37.5 89 18 128/72 (90) 96 Room Air 06/22/23 08:00 Room Air I & O 06/23/23 06:59 Intake Total 3540 ml Output Total 1700 ml Balance 1840 ml Capillary Refill : Less Than 3 Seconds General Appearance: No Apparent Distress, WD/WN HEENT: PERRL/EOMI, Pharynx Normal Neck: Normal Inspection, Non Tender Respiratory: Chest Non Tender, No Accessory Muscle Use, No Respiratory Distress Cardiovascular: Regular Rate, Rhythm, No JVD, Normal Peripheral Pulses Peripheral Pulses: 2+ Radial Pulses (R), 2+ Radial Pulses (L) Gastrointestinal: soft, no organomegaly, other (ileostomy pink and with output, rigidity in abdomen) Extremity: Normal Range of Motion, Non Tender, Other (Bilateral leg amputee) Neurologic/Psychiatric: Alert, Oriented x3, No Motor/Sensory Deficits Skin: Normal Color, Warm/Dry Lymphatic: No Adenopathy Results Lab Laboratory Tests 06/23/23 05:01: White Blood Count 10.1, Red Blood Count 5.03, Hemoglobin 15.1#, Hematocrit 46, Mean Corpuscular Volume 92, Mean Corpuscular Hemoglobin 30, Mean Corpuscular Hemoglobin Concent 33, Red Cell Distribution Width 17.5H, Platelet Count 270, Mean Platelet Volume 9.5, Sodium Level 136, Potassium Level 5.1H, Chloride Level 107, Carbon Dioxide Level 20L, Anion Gap 9, Blood Urea Nitrogen 3L, Creatinine 0.49L, Estimat Glomerular Filtration Rate 131, BUN/Creatinine Ratio 6, Glucose Level 139H, Calcium Level 8.7, Corrected Calcium 9.6, Phosphorus Level 4.2, Mag nesium Level 1.9, Total Bilirubin 0.5, Aspartate Amino Transf (AST/SGOT) 12, Alanine Aminotransferase (ALT/SGPT) 6, Alkaline Phosphatase 82, Total Protein 5.9L, Albumin 2.9L Microbiology 06/20/23 MRSA Screen - Final, Complete MRSA not isolated 06/20/23 Gram Stain - Final, Resulted 06/20/23 Wound Culture - Preliminary, Resulted Mixed Bacterial Aleta Gram Negative Bacillus 1 Assessment/Plan Assessment/Plan Assessment/Plan Colonic pseudoobstruction s/p Subtotal colectomy with end ileostomy Bilateral leg wounds Hx of bilateral AKA Chronic diarrhea Consult Wound Care-ileostomy care/teaching Advance diet to liquid diet IV Fluids 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 Tolerating clear. Using IS some. Doesn't want out of bed. Denies n/v fever sweats chills shortness of breath or chest pain. Ileostomy with output. Objective Exam General Appearance: No Apparent Distress, WD/WN HEENT: PERRL/EOMI, Pharynx Normal Neck: Normal Inspection, Non Tender Respiratory: Chest Non Tender, No Accessory Muscle Use, No Respiratory Distress Cardiovascular: Regular Rate, Rhythm, No JVD Gastrointestinal: soft, other (ileostomy pink and with output) Extremity: Normal Range of Motion, Non Tender, Other (Bilateral leg aka) Neurologic/Psychiatric: Alert, Oriented x3 Skin: Normal Color, Warm/Dry Lymphatic: No Adenopathy Assessment/Plan Assessment/Plan Assessment/Plan Colonic pseudoobstruction s/p Subtotal colectomy with end ileostomy Bilateral leg wounds Hx of bilateral AKA Chronic diarrhea Consult Wound Care-ileostomy care/teaching Advance diet IV Fluids Pain Control-truck trailer mechanic pump Remove hollis Continue IS Encourage patient to mobilize from bed Discontinue potassium infusion Supervisory-Addendum Brief Verification & Attestation Participated in pt care: history, MDM, physical Personally performed: exam, history, MDM, supervision of care Care discussed with: Medical Student Procedures: n/a Results interpretation: Verified all documentation Verification and Attestation of Medical Student E/M Service A medical student performed and documented this service in my presence. I reviewed and verified all information documented by the medical student and made modifications to such information, when appropriate. I personally performed the physical exam and medical decision making. Chase Fernandez, Jun 23, 2023,16:05 KARLOS GUNN Jun 23, 2023 07:39 CHASE FERNANDEZ DO Jun 23, 2023 16:05
[2023-06-23 08:00] VITALS: BP 118/84
[2023-06-23] MEDS: RT-ALBUTEROL SULF 2.5 MG/3 ML PRE-MIX VIAL INH SCH ×4 (08:08→21:06)
[2023-06-23 08:18] VITALS: BP 132/93
--- NOTE | 2023-06-23 09:10 | Physical Therapy Evaluation ---
PT Evaluation-General Medical Diagnosis Admission Date Jun 20, 2023 at 07:04 Medical Diagnosis: colonic pseudo obstruction Onset Date: Jun 20, 2023 Therapy Diagnosis Therapy Diagnosis: debility/weakness Precautions Precautions/Isolations: Fall Prevention, Standard Precautions Referral Physician: Rebecca Reason for Referral: Evaluation/Treatment Medical History Pertinent Medical History: Alcoholism, COPD, PVD Additional Medical History bilateral LE AKA Current History s/p colon resection Reviewed History: Yes Prior Prior Level of Function SCALE: Activities may be completed with or without assistive devices. 4-[id number]-uthgpap completes the activity by him/herself with no assistance from a helper. 5-Set-up or Clean-up Assistance-helper sets up or cleans up; patient completes activity. [place] assists only prior to or following the activity. 4-Supervision or Touching Assistance-helper provides verbal cues and/or touching/steadying and/or contact guard assistance as patient completes activity. Assistance may be provided throughout the activity or intermittently. 3-Partial/Moderate Assistance-helper does LESS THAN HALF the effort. [place] lifts, holds or supports trunk or limbs, but provides less than half the effort. 2-Substantial/Maximal Assistance-helper does MORE THAN HALF the effort. [place] lifts or holds trunk or limbs and provides more than half the effort. 0-[id number]-sgnfwh does ALL the effort. Patient does none of the effort to complete the activity. Or, the assistance of 2 or more helpers is required for the patient to complete the activity. If activity was not attempted, code reason: 7-Patient Refused. 9-Not Applicable-not attempted and the patient did not perform the activity before the current illness, exacerbation or injury. 10-Not Attempted due to Environmental Limitations-(lack of equipment, weather restraints, etc.). 88-Not Attempted due to Medical Conditions or Safety Concerns. Bed Mobility: 9 Transfers (B,C,W/C): 9 Gait: 9 Stairs: 9 Indoor Mobility (Ambulation): Not [place] Stairs: Not [place]be Prior Devices Use: Manual wheelchair PT Evaluation-Current Subjective Patient reports he doesn't have any furniture at home to transfer to and he does the best he can to take care of himself. Objective Attachments: IV ROM/Strength ROM Lower Extremities noted bilateral hip flexion contractures Strength Lower Extremities NT Integumentary/Posture Integumentary refer to nursing notes Neuromuscular (Tone, Coordination, Reflexes) grossly intact Sensory Vision: Functional Hearing: Functional Transfers Roll Left to Right (QC): 4 Sit to Lying (QC): 7 Lying to Sitting/Side of Bed(Q: 7 Gait Does the Patient Walk?: No and Walking Goal NOT indicated Assessment/Needs Patient would only reposition himself up in bed and declined to sit EOB. PT will continue to attempt to address functional strength and mobility to improve current LOF. Rehab Potential: Guarded PT Veterinarian Poultry Goals Veterinarian Poultry Goals PT Veterinarian Poultry Goals Time Frame: Jul 05, 2023 Roll Left & Right (QC): 6 Sit to Lying (QC): 6 Lying-Sitting on Side/Bed(QC): 6 PT Plan Problem List Problem List: Activity Tolerance, Functional Strength, Transfer, Bed Mobility Treatment/Plan Treatment Plan: Continue Plan of Care Treatment Plan: Bed Mobility, Education, Functional Activity [place], Functional Strength, Safety, Therapeutic Exercise, Transfers Treatment Duration: Jul 05, 2023 Frequency: 5 times per week Estimated Hrs Per Day: .25 hour per day Time Time In: 824 Time Out: 834 DATE: Jun 23, 2023 Total Billed Treatment Time: 10 Total Billed Treatment 1 visit EVMod 10 min PRIYANK RAMIREZ PT Jun 23, 2023 09:10
[2023-06-23] MEDS: MICONAZOLE 2% POWDER 90 GM TOP SCH ×2 (10:34→21:40)
[2023-06-23 11:53] VITALS: BP 125/88
[2023-06-23 16:00] VITALS: BP 120/80
[2023-06-23] MEDS: morphine PCA 100 MG/100 ML BAG IV PRN (17:00)
[2023-06-23 19:55] VITALS: BP 122/84
[2023-06-24] VITALS (7 sets, daily range): BP systolic 116–130; BP diastolic 68–86
[2023-06-24] MEDS: NS + KCL 20 MEQ/L 1000 ML 1,000 ML IV SCH ×3 (02:26→21:03)
[2023-06-24] MEDS: RT-ALBUTEROL SULF 2.5 MG/3 ML PRE-MIX VIAL INH SCH ×4 (03:27→20:46)
[2023-06-24] MEDS: ONDANSETRON INJECTION 4 MG/2 ML (SDV) IV PRN ×2 (03:44→13:44)
[2023-06-24 05:39] LABS: PHOSPHORUS 3.2 MG/DL (2.3-4.7)
[2023-06-24 05:41] LABS: MAGNESIUM 1.7 MG/DL (1.6-2.4)
[2023-06-24] MEDS: POTASSIUM CL 10MEQ/50ML IVPB 50 ML IV SCH (06:38)
[2023-06-24] MEDS: MAGNESIUM 1 GM/100 ML IVPB 100 ML IV SCH (06:39)
[2023-06-24] MEDS: POTASSIUM BICARB 20 MEQ effervescent TABLET PO SCH (06:40)
[2023-06-24] MEDS: POTASSIUM CHLORIDE 20 MEQ TABLET PO SCH (06:40)
--- NOTE | 2023-06-24 07:05 | Progress Note - Surgery ---
KARLOS GUNN 06/24/23 0705: Subjective Date Seen by a Provider: Jun 24, 2023 Time Seen by a Provider: 07:02 Subjective/Events-last exam Patient is post op subtotal colectomy with end ileostomy. Patient reports five episodes of emesis last night. Still feeling nauseous and having episodes of vomiting. Says he only handled liquids yesterday without any discomfort. Using IS regularly. Patient says he began ambulating yesterday. Denies fever, chest pain, or shortness of breath. Focused Exam Sepsis Stage: Ruled Out Respiratory: No Accessory Muscle Use, No Respiratory Distress Cardiovascular: Regular Rate, Rhythm, Normal Peripheral Pulses Peripheral Pulses: 2+ Radial Pulses (R), 2+ Radial Pulses (L) Skin: normal color, warm/dry Objective Exam Vital Signs Date Time Temp Pulse Resp B/P (MAP) Pulse Ox O2 Delivery O2 Flow Rate FiO2 06/24/23 03:46 37.6 94 18 119/68 (85) 96 Room Air 06/24/23 03:27 99 Room Air 06/24/23 00:15 37.0 81 16 130/76 (94) 95 Room Air 06/23/23 21:06 95 Room Air 06/23/23 20:50 95 Room Air 06/23/23 19:55 36.9 89 19 122/84 (97) 95 Room Air 06/23/23 17:00 37.0 19 06/23/23 16:00 37.2 62 19 120/80 (93) 96 Room Air 06/23/23 15:14 95 Room Air 0.00 06/23/23 11:53 37.0 78 19 125/88 (100) 95 Room Air 06/23/23 08:18 36.3 83 94 21 06/23/23 08:08 94 Room Air 0.00 06/23/23 08:00 36.8 87 17 118/84 (95) 97 Room Air 06/23/23 08:00 Room Air I & O 06/24/23 07:00 Intake Total 340 ml Output Total 675 ml Balance -335 ml Capillary Refill : Less Than 3 Seconds General Appearance: No Apparent Distress, WD/WN HEENT: PERRL/EOMI, Pharynx Normal Neck: Normal Inspection, Non Tender Respiratory: Chest Non Tender, No Accessory Muscle Use, No Respiratory Distress Cardiovascular: Regular Rate, Rhythm, No JVD Peripheral Pulses: 2+ Radial Pulses (R), 2+ Radial Pulses (L) Gastrointestinal: soft, other (ileostomy pink and with output) Extremity: Normal Range of Motion, Non Tender, Other (Bilateral leg aka) Neurologic/Psychiatric: Alert, Oriented x3, No Motor/Sensory Deficits Skin: Normal Color, Warm/Dry Lymphatic: No Adenopathy Results Lab Laboratory Tests 06/24/23 05:17: Phosphorus Level 3.2, Magnesium Level 1.7 Microbiology 06/20/23 MRSA Screen - Final, Complete MRSA not isolated 06/20/23 Gram Stain - Final, Resulted 06/20/23 Wound Culture - Preliminary, Resulted Mixed Bacterial Aleta Gram Negative Bacillus 1 Assessment/Plan Assessment/Plan Assessment/Plan 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 Now tolerating clears. Pain controlled. Denies fever sweats chills shortness of breath or chest pain. Using IS. 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 Bilateral leg wounds Hx of bilateral AKA Chronic diarrhea Consult Wound Care-ileostomy care/teaching Continue liquid diet, advance diet when IV Fluids Pain Control-lithographic artist pump Continue IS Encourage patient to mobilize from bed Repeat labs Supervisory-Addendum Brief Verification & Attestation Participated in pt care: history, MDM, physical Personally performed: exam, history, MDM, supervision of care Care discussed with: Medical Student Procedures: n/a Results interpretation: Verified all documentation Verification and Attestation of Medical Student E/M Service A medical student performed and documented this service in my presence. I reviewed and verified all information documented by the medical student and made modifications to such information, when appropriate. I personally performed the physical exam and medical decision making. Chase Fernandez, Jun 24, 2023,13:51 KARLOS GUNN Jun 24, 2023 07:05 CHASE FERNANDEZ DO Jun 24, 2023 13:51
[2023-06-24 08:19] LABS: HEMATOCRIT 37 % (40-54); HEMOGLOBIN 11.8 g/dL (13.3-17.7); MEAN CORPUSCULAR HEMOGLOBIN 30 pg (25-34); MEAN CORPUSCULAR HGB CONC 32 g/dL (32-36); MEAN CORPUSCULAR VOLUME 93 fL (80-99); MEAN PLATELET VOLUME 9.7 fL (9.0-12.2); PLATELET COUNT 292 10^3/uL (130-400); WHITE BLOOD COUNT 7.4 10^3/uL (4.3-11.0)
[2023-06-24 08:31] LABS: CALCIUM 8.1 MG/DL (8.5-10.1); CREATININE SERUM 0.5 MG/DL (0.60-1.30); POTASSIUM 4.4 MMOL/L (3.6-5.0)
--- NOTE | 2023-06-24 09:03 | Physical Therapy Progress Note ---
Therapy Progress Note Patient declined PT due to uncontrolled vomiting. Will attempt tomorrow. PRIYANK RAMIREZ PT Jun 24, 2023 09:03
[2023-06-24] MEDS: MICONAZOLE 2% POWDER 90 GM TOP SCH ×2 (09:11→21:03)
[2023-06-24] MEDS ORDERED: HYDROcodone/ACETAMINOPHEN 5 MG/325 MG TABLET PO PRN (14:00)
[2023-06-25] MEDS: RT-ALBUTEROL SULF 2.5 MG/3 ML PRE-MIX VIAL INH SCH ×4 (02:36→20:50)
[2023-06-25 03:29] VITALS: BP 121/78
[2023-06-25 05:42] LABS: HEMATOCRIT 35 % (40-54); HEMOGLOBIN 11.2 g/dL (13.3-17.7); MEAN CORPUSCULAR HEMOGLOBIN 30 pg (25-34); MEAN CORPUSCULAR HGB CONC 32 g/dL (32-36); MEAN CORPUSCULAR VOLUME 93 fL (80-99); MEAN PLATELET VOLUME 9.2 fL (9.0-12.2); PLATELET COUNT 259 10^3/uL (130-400); WHITE BLOOD COUNT 4.5 10^3/uL (4.3-11.0)
[2023-06-25 05:53] LABS: CHLORIDE 107 MMOL/L (98-107); SODIUM 138 MMOL/L (135-145)
[2023-06-25 05:54] LABS: CALCIUM 7.9 MG/DL (8.5-10.1)
[2023-06-25 05:55] LABS: GLUCOSE 90 MG/DL (70-105)
[2023-06-25 05:56] LABS: CARBON DIOXIDE 23 MMOL/L (21-32)
[2023-06-25 05:58] LABS: PHOSPHORUS 2.9 MG/DL (2.3-4.7)
[2023-06-25] MEDS: POTASSIUM CL 10MEQ/50ML IVPB 50 ML IV SCH (05:58)
[2023-06-25] MEDS: POTASSIUM BICARB 20 MEQ effervescent TABLET PO SCH (05:58)
[2023-06-25] MEDS: POTASSIUM CHLORIDE 20 MEQ TABLET PO SCH (05:59)
[2023-06-25 06:28] LABS: BUN/CREATININE RATIO 4; GFR ESTIMATED 130; MAGNESIUM 1.6 MG/DL (1.6-2.4)
[2023-06-25] MEDS: MAGNESIUM 1 GM/100 ML IVPB 100 ML IV SCH ×5 (06:33→10:36)
--- NOTE | 2023-06-25 06:49 | Progress Note - Surgery ---
KARLOS GUNN 06/25/23 0648: Subjective Date Seen by a Provider: Jun 25, 2023 Time Seen by a Provider: 06:48 Subjective/Events-last exam Tolerating diet. Pain is well controlled. Patient reports ambulating without discomfort. Denies any nausea, vomiting, fever, sweats, chills, shortness of breath, or chest pain. Using IS. Focused Exam Sepsis Stage: Ruled Out Respiratory: No Accessory Muscle Use, No Respiratory Distress Cardiovascular: Regular Rate, Rhythm, Normal Peripheral Pulses Peripheral Pulses: 2+ Radial Pulses (R), 2+ Radial Pulses (L) Skin: normal color, warm/dry Objective Exam Vital Signs Date Time Temp Pulse Resp B/P (MAP) Pulse Ox O2 Delivery O2 Flow Rate FiO2 06/25/23 06:26 18 06/25/23 03:29 36.1 81 20 121/78 (92) 96 Room Air 0.00 0.00 06/25/23 02:36 Room Air 06/24/23 23:29 36.4 80 20 116/76 (89) 94 Room Air 0.00 0.00 06/24/23 20:55 Room Air 06/24/23 20:47 Room Air 06/24/23 19:59 36.6 82 20 117/77 (90) 95 Room Air 06/24/23 16:22 36.4 89 20 118/74 (89) 90 Room Air 06/24/23 13:40 92 Room Air 06/24/23 11:25 35.8 80 14 127/86 (100) 96 Room Air 06/24/23 08:00 36.1 93 16 121/84 (96) 95 Room Air 06/24/23 08:00 Room Air I & O 06/25/23 07:00 Intake Total 1562 ml Output Total 1204 ml Balance 358 ml Capillary Refill : Less Than 3 Seconds General Appearance: No Apparent Distress, WD/WN HEENT: PERRL/EOMI, Normal ENT Inspection Neck: Normal Inspection, Non Tender Respiratory: Chest Non Tender, No Accessory Muscle Use, No Respiratory Distress Cardiovascular: Regular Rate, Rhythm, No JVD Peripheral Pulses: 2+ Radial Pulses (R), 2+ Radial Pulses (L) Gastrointestinal: soft, other (ileostomy pink and with output) Extremity: Normal Range of Motion, Non Tender, Other (bilateral [place] amputee) Neurologic/Psychiatric: Alert, Oriented x3, No Motor/Sensory Deficits Skin: Normal Color, Warm/Dry Lymphatic: No Adenopathy Results Lab Laboratory Tests 06/24/23 08:17: White Blood Count 7.4, Red Blood Count 3.96L, Hemoglobin 11.8#L, Hematocrit 37L, Mean Corpuscular Volume 93, Mean Corpuscular Hemoglobin 30, Mean Corpuscular Hemoglobin Concent 32, Red Cell Distribution Width 17.5H, Platelet Count 292, Mean Platelet Volume 9.7, Sodium Level 138, Potassium Level 4.4, Chloride Level 106, Carbon Dioxide Level 25, Anion Gap 7, Blood Urea Nitrogen 3L, Creatinine 0.50L, Estimat Glomerular Filtration Rate 130, BUN/Creatinine Ratio 6, Glucose Level 115H, Calcium Level 8.1L 06/25/23 05:10: White Blood Count 4.5, Red Blood Count 3.72L, Hemoglobin 11.2L, Hematocrit 35L, Mean Corpuscular Volume 93, Mean Corpuscular Hemoglobin 30, Mean Corpuscular Hemoglobin Concent 32, Red Cell Distribution Width 17.5H, Platelet Count 259, Mean Platelet Volume 9.2, Sodium Level 138, Potassium Level 4.0, Chloride Level 107, Carbon Dioxide Level 23, Anion Gap 8, Blood Urea Nitrogen < 2L, Creatinine 0.50L, Estimat Glomerular Filtration Rate 130, BUN/Creatinine Ratio 4, Glucose Level 90, Calcium Level 7.9L, Phosphorus Level 2.9, Magnesium Level 1.6 Microbiology 06/20/23 MRSA Screen - Final, Complete MRSA not isolated 06/20/23 Gram Stain - Final, Resulted 06/20/23 Wound Culture - Preliminary, Resulted Mixed Bacterial [place]ta Pseudomonas aeruginosa Assessment/Plan Assessment/Plan Assessment/Plan 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 Ileostomy functioning. Pain controlled. Using is. Denies n/v fever sweats chills shortness of breath or chest pain. 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 Bilateral leg wounds Hx of bilateral AKA Consult Wound Care-ileostomy care/teaching Advance diet to minimal solids IV Fluids Pain Control- Discontinue relations coordinator pump, oral pain control Continue IS Encourage patient to mobilize from bed Supervisory-Addendum Brief Verification & Attestation Participated in pt care: history, MDM, physical Personally performed: exam, history, MDM, supervision of care Care discussed with: Medical Student Procedures: n/a Results interpretation: Verified all documentation Verification and Attestation of Medical Student E/M Service A medical student performed and documented this service in my presence. I reviewed and verified all information documented by the medical student and made modifications to such information, when appropriate. I personally performed the physical exam and medical decision making. Chase Fernandez, Jun 25, 2023,10:36 KARLOS GUNN Jun 25, 2023 06:48 CHASE FERNANDEZ DO Jun 25, 2023 10:36
[2023-06-25 07:30] VITALS: BP 123/80
[2023-06-25] MEDS: NS + KCL 20 MEQ/L 1000 ML 1,000 ML IV SCH ×2 (07:49→18:22)
[2023-06-25] MEDS: MICONAZOLE 2% POWDER 90 GM TOP SCH ×2 (09:01→21:00)
[2023-06-25 11:32] VITALS: BP 125/85
--- NOTE | 2023-06-25 12:03 | Physical Therapy Progress Note ---
Therapy Progress Note Patient refused PT treatment. Reports he just got finished eating and situated in bed. Does not want to participate. Will attempt treatment again tomorrow. KIETH PARKINSON PT Jun 25, 2023 12:03
[2023-06-25 15:45] VITALS: BP 122/99
[2023-06-25 20:18] VITALS: BP 112/74
[2023-06-25] MEDS: HYDROcodone/ACETAMINOPHEN 5 MG/325 MG TABLET PO PRN (21:00)
[2023-06-25 23:47] VITALS: BP 123/82
[2023-06-26] VITALS (7 sets, daily range): BP systolic 106–128; BP diastolic 65–81
[2023-06-26] MEDS: HYDROcodone/ACETAMINOPHEN 5 MG/325 MG TABLET PO PRN ×4 (01:05→22:36)
[2023-06-26] MEDS: NS + KCL 20 MEQ/L 1000 ML 1,000 ML IV SCH ×3 (04:28→23:30)
[2023-06-26 04:58] LABS: PHOSPHORUS 3.7 MG/DL (2.3-4.7)
[2023-06-26] MEDS: POTASSIUM CL 10MEQ/50ML IVPB 50 ML IV SCH (05:28)
[2023-06-26] MEDS: POTASSIUM BICARB 20 MEQ effervescent TABLET PO SCH (05:29)
[2023-06-26] MEDS: POTASSIUM CHLORIDE 20 MEQ TABLET PO SCH (05:29)
[2023-06-26] MEDS: MAGNESIUM 1 GM/100 ML IVPB 100 ML IV SCH (05:29)
--- NOTE | 2023-06-26 06:52 | Progress Note - Surgery ---
KARLOS GUNN 06/26/23 0652: Subjective Date Seen by a Provider: Jun 26, 2023 Time Seen by a Provider: 06:48 Subjective/Events-last exam Tolerating new diet. Ileostomy functioning. Pain controlled. Using IS. Reports being too fatigued to do PT or ambulate. Denies nausea, vomiting, fever sweats chills, shortness of breath, or chest pain. Focused Exam Sepsis Stage: Ruled Out Respiratory: No Accessory Muscle Use, No Respiratory Distress Cardiovascular: Regular Rate, Rhythm, Normal Peripheral Pulses Peripheral Pulses: 2+ Radial Pulses (R), 2+ Radial Pulses (L) Skin: normal color, warm/dry Objective Exam Vital Signs Date Time Temp Pulse Resp B/P (MAP) Pulse Ox O2 Delivery O2 Flow Rate FiO2 06/26/23 03:22 36.5 78 18 128/81 (97) 96 Room Air 0.00 0.00 06/25/23 23:47 36.5 68 18 123/82 (96) 97 Room Air 0.00 0.00 06/25/23 20:50 98 Room Air 06/25/23 20:18 36.2 69 18 112/74 (87) 96 Room Air 06/25/23 20:00 Room Air 06/25/23 16:22 18 06/25/23 15:45 35.8 73 18 122/99 (107) 98 Room Air 06/25/23 11:32 35.8 90 14 125/85 (98) 95 Room Air 06/25/23 10:06 96 Room Air 06/25/23 08:00 Room Air 06/25/23 07:30 36.5 79 16 123/80 (94) Room Air I & O 06/26/23 07:00 Intake Total 2920 ml Output Total 3425 ml Balance -505 ml Capillary Refill : Less Than 3 Seconds General Appearance: No Apparent Distress, WD/WN HEENT: PERRL/EOMI, Normal ENT Inspection Neck: Normal Inspection, Non Tender Respiratory: Chest Non Tender, No Accessory Muscle Use, No Respiratory Distress Cardiovascular: Regular Rate, Rhythm, No JVD Peripheral Pulses: 2+ Radial Pulses (R), 2+ Radial Pulses (L) Gastrointestinal: soft, distended (mild), tenderness (mild incisional), other (ileostomy pink and with output) Extremity: Normal Range of Motion, Non Tender, Other (bilateral [place] amputee) Neurologic/Psychiatric: Alert, Oriented x3, No Motor/Sensory Deficits Skin: Normal Color, Warm/Dry Lymphatic: No Adenopathy Results Lab Laboratory Tests 06/26/23 04:22: Phosphorus Level 3.7, Magnesium Level 2.0 Microbiology 06/20/23 MRSA Screen - Final, Complete MRSA not isolated 06/20/23 Gram Stain - Final, Resulted 06/20/23 Wound Culture - Preliminary, Resulted Mixed Bacterial Aleta Pseudomonas aeruginosa Assessment/Plan Assessment/Plan Assessment/Plan 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 Ileostomy functioning. Using IS. Pain controlled. Willing to do PT. Denies n/v fever sweats chills shortness of breath or chest pain. 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 Supervisory-Addendum Brief Verification & Attestation Participated in pt care: history, MDM, physical Personally performed: exam, history, MDM, supervision of care Care discussed with: Medical Student Procedures: n/a Results interpretation: Verified all documentation Verification and Attestation of Medical Student E/M Service A medical student performed and documented this service in my presence. I reviewed and verified all information documented by the medical student and made modifications to such information, when appropriate. I personally performed the physical exam and medical decision making. Chase Fernandez, Jun 26, 2023,08:12 KARLOS GUNN Jun 26, 2023 06:52 CHASE FERNANDEZ DO Jun 26, 2023 08:16
[2023-06-26] MEDS: morphine INJ 4 MG/ML 1 ML (VIAL/SYRINGE) IV PRN ×2 (08:32→10:44)
[2023-06-26] MEDS: ONDANSETRON INJECTION 4 MG/2 ML (SDV) IV PRN ×3 (08:33→23:30)
[2023-06-26] MEDS: MICONAZOLE 2% POWDER 90 GM TOP SCH ×2 (09:35→20:52)
[2023-06-26] MEDS: RT-ALBUTEROL SULF 2.5 MG/3 ML PRE-MIX VIAL INH SCH ×2 (09:49→21:21)
--- NOTE | 2023-06-26 09:57 | Physical Therapy Daily Note ---
PT Daily Note-Current Subjective Patient agrees to PT. Pain Section J - Health Conditions 1. Rarely or not at all 2. Occasionally 3. Frequently 4. Almost constantly 8. Unable to answer Pain Effect on Sleep: 4 Pain Interference with Therapy: 4 Pain Interference w/Day-to-Day: 4 Mental Status Patient Orientation: Normal For Age Attachments: IV Transfers SCALE: Activities may be completed with or without assistive devices. 6-Ztoxjzdsnv-ikwqxrp completes the activity by him/herself with no assistance from a helper. 5-Set-up or Clean-up Assistance-helper sets up or cleans up; patient completes activity. [place] assists only prior to or following the activity. 4-Supervision or Touching Assistance-helper provides verbal cues and/or touching/steadying and/or contact guard assistance as patient completes ac tivity. Assistance may be provided throughout the activity or intermittently. 3-Partial/Moderate Assistance-helper does LESS THAN HALF the effort. [place] lifts, holds or supports trunk or limbs, but provides less than half the effort. 2-Substantial/Maximal Assistance-helper does MORE THAN HALF the effort. [place] lifts or holds trunk or limbs and provides more than half the effort. 7-Utwrltxun-lmvcwp does ALL the effort. Patient does none of the effort to complete the activity. Or, the assistance of 2 or more helpers is required for the patient to complete the activity. If activity was not attempted, code reason: 7-Patient Refused. 9-Not Applicable-not attempted and the patient did not perform the activity before the current illness, exacerbation or injury. 10-Not Attempted due to Environmental Limitations-(lack of equipment, weather restraints, etc.). 88-Not Attempted due to Medical Conditions or Safety Concerns. Roll Left & Right (QC): 6 Sit to Lying (QC): 4 Lying to Sitting/Side of Bed(Q: 4 Exercises Supine Ex: Rolling, Scooting Assessment Patient requires time to complete bed mobility tasks and is able to perform SBA to independent. Patient has c/o abdominal pain, however, was able to participate on this date. PT Notcher Goals Notcher Goals PT [facility] Goals Time Frame: Jul 05, 2023 Roll Left & Right (QC): 6 Sit to Lying (QC): 6 Lying-Sitting on Side/Bed(QC): 6 PT Plan Treatment/Plan Treatment Plan: Continue Plan of Care Treatment Plan: Bed Mobility, Education, Functional Activity [place], Functional Strength, Safety, Therapeutic Exercise, Transfers Treatment Duration: Jul 05, 2023 Frequency: 5 times per week Estimated Hrs Per Day: .25 hour per day Time Time In: 811 Time Out: 824 DATE: Jun 26, 2023 Total Billed Treatment Time: 13 Total Billed Treatment 1 visit EX 13 min PRIYANK RAMIREZ PT Jun 26, 2023 09:56
--- NOTE | 2023-06-26 13:38 | Occupational Therapy Eval ---
OT Evaluation-General/PLF Medical Diagnosis Admission Date Jun 20, 2023 at 07:04 Medical Diagnosis: colonic pseudo obstruction Onset Date: Jun 20, 2023 Therapy Diagnosis Therapy Diagnosis: weakness Precautions Precautions/Isolations: Fall Prevention, Standard Precautions, Pressure Ulcer Weight Bear Status WBS (Ord/Comment): B AKA, wounds to stumps Referral Physician: Rebecca Referral Reason: Activity Tolerance, Self Care, Evaluation/Treatment, Strengthening/ROM Medical History Pertinent Medical History: Alcoholism, COPD, PVD Reviewed History: Yes Social History Home: Apartment Current Living Status: Spouse (and child) Entry Into Home: Level Entry reports limited furniture w/ air mattresses to sleep on for spouse and child,colla[sabl;e desk tables in bedroom and living room for eating and work. spouse does not work, son attends school. Broken down WC has not been fixed and no appointment has occurred w/ PCP/physicaian frm last hospitalization. WC does not fit in bathroom at apartment, patien uses baby wipes to clean. Patient sleeps n WC, is unable to transfer in/out of WC and requires EMS assistance if out of WC ADL-Prior Level of Function SCALE: Activities may be completed with or without assistive devices. 6-Dppmdhhwah-slaiipm completes the activity by him/herself with no assistance from a helper. 5-Set-up or Clean-up Assistance-helper sets up or cleans up; patient completes activity. [place] assists only prior to or following the activity. 4-Supervision or Touching Assistance-helper provides verbal cues and/or touching/steadying and/or contact guard assistance as patient completes activity. Assistance may be provided throughout the activity or intermittently. 3-Partial/Moderate Assistance-helper does LESS THAN HALF the effort. [place] lifts, holds or supports trunk or limbs, but provides less than half the effort. 2-Substantial/Maximal Assistance-helper does MORE THAN HALF the effort. [place] lifts or holds trunk or limbs and provides more than half the effort. 3-Ajwkvpqsm-qjvawy does ALL the effort. Patient does none of the effort to complete the activity. Or, the assistance of 2 or more helpers is required for the patient to complete the activity. If activity was not attempted, code reason: 7-Patient Refused. 9-Not Applicable-not attempted and the patient did not perform the activity before the current illness, exacerbation or injury. 10-Not Attempted due to Environmental Limitations-(lack of equipment, weather restraints, etc.). 88-Not Attempted due to Medical Conditions or Safety Concerns. Self Care: Needed Some Help (Poor hygiene and availability of environment ot cleanse self.) Functional Cognition: Independent (poor medical complience and safety awareness) OT Current Status Subjective Resistive to perform skills for evaluation for OT. Pain Numeric Pain Scale: 5-Moderate Pain ([place] area) Mental Status/Objective Patient Orientation: Person, Place, Time, Situation Attachments: Colostomy/Ileostomy (bottom of velcro not secure during session, OT changed linens and secured velcro), IV Current Dentures/Partials: No (no teeth) Upper Extremity ROM WFLs Upper Extremity Coordination WFLs Upper Extremity Sensation WFLs Upper Extremity Strength -4/5 grossly, Patient reports he cannot transfer from floor wot WC, has no furniture to transfer to/form, propels self short distances ADL-Treatment ADL-Current Eating in bed, declines saop and water bucket for washing, declines oral sponge and toothpaste. Eating (QC): 6 Oral Hygiene (QC): 7 Shower/Bathe Self (QC): 7 Upper Body Dressing (QC): 7 Lower Body Dressing (QC): 7 Toileting Hygiene (QC): 1 Other Treatments Patietn is able ro roll completely onto each side of body and hold for 15 seconds. Patient reports his intestines hurt when he rolls over.Patient is able to scoot himself up in bed and down, remove own pillow an d replace. Education OT Patient Education: Correct positioning, Disease process, Exercise program, Modified ADL techniques, Progress toward Goal/Update tx plan, Purpose of tx/functional activities, Reviewed precautions, Rehab process, Safety issues, Transfer techniques, Use of adapted equipment Teaching Recipient: Patient Teaching Methods: Discussion Response to Teaching: Reinforcement Needed OT Detention Goals Detention Goals Time Frame: Jul 10, 2023 Eating (QC): 6 Oral Hygiene (QC): 6 Toileting Hygiene (QC): 6 Shower/Bathe Self (QC): 6 Upper Body Dressing (QC): 6 Lower Body Dressing (QC): 6 1=Demonstrate adherence to instructed precautions during ADL tasks. 2=Patient will verbalize/demonstrate understanding of assistive de vices/modifications for ADL. 3=Patient will improve strength/tolerance for activity to enable patient to perform ADL's. OT Education/Plan Problem List/Assessment Assessment: Decreased Activ Tolerance, Decreased Safety Aware, Decreased UE Strength, Dependent Transfers, Impaired Bed Mobility, Impaired Funct Balance, Impaired Self-Care Skills, Restricted Funct UE ROM Discharge Recommendations Plan/Recommendations: Continue POC Therapy Discharge Recommendati: Post Acute OT Treatment Plan/Plan of Care Treatment,Training & Education: Yes Patient would benefit from OT for education, treatment and training to promote independence in ADL's, mobility, safety and/or upper extremity function for ADL's. Plan of Care: ADL Retraining, Concurrent Therapy, Functional Mobility, Group Exercise/Act as Ind, UE Funct Exercise/Act Treatment Duration: Jul 10, 2023 Frequency: 3 times per week Estimated Hrs Per Day: .25 hour per day Agreement: Yes Rehab Potential: Guarded resting comfortable in bed w/ clean linens Time Start Time: 13:00 Stop Time: 13:23 DATE: Jun 26, 2023 Total Time Billed (hr/min): 23 Billed Treatment Time EVM, ADL 23 min ALONA JACOB OT Jun 26, 2023 13:38
[2023-06-27] MEDS: morphine INJ 4 MG/ML 1 ML (VIAL/SYRINGE) IV PRN ×7 (00:22→22:14)
[2023-06-27 04:00] VITALS: BP 117/69
[2023-06-27] MEDS: ONDANSETRON INJECTION 4 MG/2 ML (SDV) IV PRN ×3 (05:41→22:13)
[2023-06-27 06:03] LABS: MAGNESIUM 1.7 MG/DL (1.6-2.4); PHOSPHORUS 3.3 MG/DL (2.3-4.7)
[2023-06-27] MEDS: MAGNESIUM 1 GM/100 ML IVPB 100 ML IV SCH ×5 (06:19→11:32)
[2023-06-27 06:38] LABS: CALCIUM 8.3 MG/DL (8.5-10.1); CREATININE SERUM 0.47 MG/DL (0.60-1.30); POTASSIUM 4.4 MMOL/L (3.6-5.0)
[2023-06-27] MEDS: POTASSIUM BICARB 20 MEQ effervescent TABLET PO SCH (06:39)
[2023-06-27] MEDS: POTASSIUM CL 10MEQ/50ML IVPB 50 ML IV SCH (06:39)
[2023-06-27] MEDS: POTASSIUM CHLORIDE 20 MEQ TABLET PO SCH (06:39)
--- NOTE | 2023-06-27 06:49 | Diagnostic Imaging Report ---
INDICATION: Abdominal pain with severe vomiting. KUB 2:47 AM Lung bases are clear. There is a large pneumoperitoneum. There is gaseous distention of the GI tract. IMPRESSION: Gaseous distention of the GI tract with a large pneumoperitoneum. Critical finding Called to Vashti at 6:46 a.m. by cvb. Dictated by: Dictated on workstation # [id number]
--- NOTE | 2023-06-27 06:57 | Progress Note - Surgery ---
PATEL PETERSON 06/27/23 0657: Subjective Date Seen by a Provider: Jun 27, 2023 Subjective/Events-last exam Pt states that he vomited last night x2. Endorses abd distention, mild tenderness, and a feeling of fullness. Has not eaten since yesterday lunch (puree diet). Has not used IS since yesterday as he says it provokes further nausea. Has taken anti-nausea and pain medication. Review of Systems General: No Chills, No Night Sweats; Fatigue HEENT: No Head Aches, No Visual Changes Pulmonary: No Dyspnea, No Cough Cardiovascular: No: Chest Pain, Palpitations Gastrointestinal: Nausea, Vomiting, Abdominal Pain Genitourinary: No Dysuria, No Frequency Neurological: No: Weakness, Change in speech, Confusion, Seizures Focused Exam Sepsis Stage: Ruled Out Skin: other (incision clean and dry, nonerythematous) Objective Exam Vital Signs Date Time Temp Pulse Resp B/P (MAP) Pulse Ox O2 Delivery O2 Flow Rate FiO2 06/27/23 04:00 36.8 75 18 117/69 (85) 96 Room Air 06/26/23 23:54 36.6 77 18 125/75 (92) 95 Room Air 06/26/23 21:21 Room Air 06/26/23 20:49 Room Air 06/26/23 19:30 36.0 74 18 111/78 (89) 96 Room Air 06/26/23 15:36 36.2 74 16 117/78 (91) 94 Room Air 06/26/23 12:15 36.4 76 18 106/65 (79) 99 Room Air 06/26/23 11:01 36.7 71 99 21 06/26/23 09:50 99 Room Air 0.00 06/26/23 09:09 Room Air 0.00 06/26/23 08:46 Room Air 06/26/23 08:35 36.7 71 18 112/78 (89) 97 Room Air I & O 06/27/23 07:00 Intake Total 1810 ml Output Total 1425 ml Balance 385 ml Capillary Refill : Less Than 3 Seconds General Appearance: No Apparent Distress, WD/WN HEENT: PERRL/EOMI, Normal ENT Inspection Neck: Normal Inspection, Non Tender Respiratory: Chest Non Tender, No Accessory Muscle Use, No Respiratory Distress Cardiovascular: Regular Rate, Rhythm, No JVD Peripheral Pulses: 2+ Radial Pulses (R), 2+ Radial Pulses (L) Gastrointestinal: distended, tenderness (mild tenderness throughout), other (ileostomy pink and with output. firm and tender abd) Extremity: Non Tender, Other (bilateral AK amputee) Neurologic/Psychiatric: Alert, Oriented x3 Skin: Normal Color, Warm/Dry Lymphatic: No Adenopathy Results Lab Laboratory Tests 06/27/23 05:26: Sodium Level 136, Potassium Level 4.4, Chloride Level 103, Carbon Dioxide Level 19L, Anion Gap 14, Blood Urea Nitrogen 5L, Creatinine 0.47L, Estimat Glomerular Filtration Rate 132, BUN/Creatinine Ratio 11, Glucose Level 75, Calcium Level 8.3L, Phosphorus Level 3.3, Magnesium Level 1.7 Microbiology 06/20/23 MRSA Screen - Final, Complete MRSA not isolated 06/20/23 Gram Stain - Final, Complete 06/20/23 Wound Culture - Final, Complete Mixed Bacterial Aleta Pseudomonas aeruginosa Coryneform bacteria Staph, 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 NG tube placement today 06/27/2023 Limit narcotic use CHASE FERNANDEZ DO 06/27/232050: Subjective Time Seen by a Provider: 11:30 Subjective/Events-last exam Having emesis overnight. Slightly more tender than days before. More distention today. Has fullness. Not hungry. Having less output from ileostomy. Denies fever sweats chills shortness of breath or chest pain. Had abdominal xray showing free air and small bowel distention. Objective Exam General Appearance: No Apparent Distress, WD/WN HEENT: PERRL/EOMI, Normal ENT Inspection Neck: Normal Inspection, Non Tender Respiratory: Chest Non Tender, No Accessory Muscle Use, No Respiratory Distress Cardiovascular: Regular Rate, Rhythm, No JVD Gastrointestinal: distended, tenderness (mild tenderness throughout), other (ileostomy pink and with minimal output. 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 feel this is possibly more than should be, will get ct abd/pelvis with oral contrast to further evaluate. WBC normal and exam more consistent with ileus rather than perforation. Update CT scan demonstrated mild pneumoperitoneum. More suggestive of ileus. Limit narcotic use Supervisory-Addendum Brief Verification & Attestation Participated in pt care: history, MDM, physical Personally performed: exam, history, MDM, supervision of care Care discussed with: Medical Student Procedures: n/a Results interpretation: Verified all documentation Verification and Attestation of Medical Student E/M Service A medical student performed and documented this service in my presence. I reviewed and verified all information documented by the medical student and made modifications to such information, when appropriate. I personally performed the physical exam and medical decision making. Chase Fernandez, Jun 27, 2023,20:52 PATEL PETERSON Jun 27, 2023 06:57 CHASE FERNANDEZ DO Jun 27, 2023 20:51
[2023-06-27 07:04] LABS: BASOPHILS % (AUTO) 0 % (0-10); EOSINOPHILS # (AUTO) 0.3 10^3/uL (0.0-0.3); EOSINOPHILS % (AUTO) 3 % (0-10); HEMATOCRIT 38 % (40-54); LYMPHOCYTES % (AUTO) 12 % (12-44); MEAN CORPUSCULAR HEMOGLOBIN 30 pg (25-34); MEAN CORPUSCULAR HGB CONC 32 g/dL (32-36); MEAN CORPUSCULAR VOLUME 92 fL (80-99); MEAN PLATELET VOLUME 9.3 fL (9.0-12.2); MONOCYTES # (AUTO) 0.5 10^3/uL (0.0-1.0); MONOCYTES % (AUTO) 6 % (0-12); NEUTROPHILS # (AUTO) 6.4 10^3/uL (1.8-7.8); NEUTROPHILS % (AUTO) 78 % (42-75); PLATELET COUNT 399 10^3/uL (130-400); WHITE BLOOD COUNT 8.2 10^3/uL (4.3-11.0)
[2023-06-27] MEDS: RT-ALBUTEROL SULF 2.5 MG/3 ML PRE-MIX VIAL INH SCH ×3 (07:19→20:15)
[2023-06-27] MEDS ORDERED: PANTOPRAZOLE INJECTION 40 MG VIAL IV NR (07:30)
--- NOTE | 2023-06-27 08:06 | Diagnostic Imaging Report ---
INDICATION: NG tube placement KUB 7:36 AM NG tube projects over the stomach. There is a pneumoperitoneum. Lungs are clear. There are no effusions or pneumothoraces. IMPRESSION: Pneumoperitoneum Critical finding Called to [place] at 8:03 a.m. by cvb. Dictated by: Dictated on workstation # [id number]
[2023-06-27 08:21] VITALS: BP 113/67
[2023-06-27] MEDS ORDERED: PHENOL THROAT SPRAY 177 ML LIQUID MC PRN (08:30)
[2023-06-27] MEDS: NS + KCL 20 MEQ/L 1000 ML 1,000 ML IV SCH ×2 (08:41→22:14)
[2023-06-27] MEDS: MICONAZOLE 2% POWDER 90 GM TOP SCH ×2 (08:41→19:45)
[2023-06-27] MEDS: RT-ALBUTEROL SULF 2.5 MG/3 ML PRE-MIX VIAL INH PRN (09:17)
--- NOTE | 2023-06-27 10:20 | Physical Therapy Progress Note ---
Therapy Progress Note RN requests no therapy on this date due to NG tube placement and gastrointestinal issues. Will attempt at a later time. PRIYANK RAMIREZ PT Jun 27, 2023 10:20
[2023-06-27 11:55] VITALS: BP 113/62
[2023-06-27] MEDS ORDERED: NS 100 ML (IVPB) BAG IV ONE (12:45)
[2023-06-27] MEDS ORDERED: IOHEXOL 350 MG/ML 100 ML (OMNIPAQUE 350) VIAL IV ONE (12:45)
[2023-06-27] MEDS ORDERED: DIATRIZOATE MEGLUM/SODIUM 37% 120 ML (GASTROGRAFIN) PO ONE (12:45)
[2023-06-27] MEDS ORDERED: HOLD METFORMIN - RECEIVED CONTRAST 20 ML VIAL IV SCH (12:45)
--- NOTE | 2023-06-27 13:18 | Occ Therapy Progress Note ---
Therapy Progress Note Patient requests no therapy on this date due to NG tube placement and gastrointestinal issues. OT encouraged movement an doffloading for wound healing. Jerry reports no other needs at this time ALONA JACOB OT Jun 27, 2023 13:18
[2023-06-27] MEDS: CATHETER FLUSH 10 ML SYR IV PRN (15:55)
[2023-06-27 16:07] VITALS: BP 128/64
--- NOTE | 2023-06-27 16:13 | Diagnostic Imaging Report ---
PROCEDURE: CT abdomen and pelvis with contrast. TECHNIQUE: Multiple contiguous axial images were obtained through the abdomen and pelvis after administration of intravenous contrast. Auto Exposure Controls were utilized during the CT exam to meet ALARA standards for radiation dose reduction. All CT scans use one or more of the following dose optimizing techniques: Automated exposure control, MA and/or KvP adjustment based on patient size and exam type or iterative reconstruction. INDICATION: Pneumoperitoneum. COMPARISON: 06/20/2023. FINDINGS: There is mild dependent atelectasis in the visualized lung bases. There is mild pneumoperitoneum and mild peritoneal free fluid. There is marked diffuse dilatation of small bowel. Contrast administered via the nasogastric tube opacifies the stomach and proximal jejunum. There is no definite transition point with small bowel dilated to the level of apparent distal colonic anastomosis. There is no evidence of organized fluid collection to indicate an abscess or hematoma. Unopacified bladder is unremarkable. There is no evidence of focal hepatic, gallbladder, pancreatic, splenic, or adrenal gland abnormality. Kidneys are also unremarkable. IMPRESSION: Marked dilatation of small bowel diffusely to the level of apparent colonic anastomosis. This may represent postoperative ileus, although a component of distal obstruction is not fully excluded. Pneumoperitoneum and peritoneal free fluid are most likely on the basis of recent instrumentation. Radiographic follow-up would be of use. Dictated by: Dictated on workstation # [id number]
[2023-06-27 19:47] VITALS: BP 113/70
[2023-06-28] VITALS (7 sets, daily range): BP systolic 103–125; BP diastolic 66–77
[2023-06-28] MEDS: morphine INJ 4 MG/ML 1 ML (VIAL/SYRINGE) IV PRN ×8 (00:25→21:21)
[2023-06-28] MEDS: ONDANSETRON INJECTION 4 MG/2 ML (SDV) IV PRN ×3 (01:56→21:21)
[2023-06-28 05:34] LABS: MAGNESIUM 1.8 MG/DL (1.6-2.4); PHOSPHORUS 3.4 MG/DL (2.3-4.7)
[2023-06-28 05:40] LABS: CALCIUM 7.9 MG/DL (8.5-10.1); CREATININE SERUM 0.51 MG/DL (0.60-1.30); POTASSIUM 4.4 MMOL/L (3.6-5.0)
[2023-06-28] MEDS: POTASSIUM CL 10MEQ/50ML IVPB 50 ML IV SCH (05:49)
[2023-06-28] MEDS: POTASSIUM BICARB 20 MEQ effervescent TABLET PO SCH (05:50)
[2023-06-28] MEDS: POTASSIUM CHLORIDE 20 MEQ TABLET PO SCH (05:50)
[2023-06-28] MEDS: MAGNESIUM 1 GM/100 ML IVPB 100 ML IV SCH ×3 (05:50→08:15)
[2023-06-28] MEDS ORDERED: DEXTROSE 50% 50 ML (IMS) SYR ONE (06:10)
[2023-06-28] MEDS: NS + KCL 20 MEQ/L 1000 ML 1,000 ML IV SCH (06:27)
[2023-06-28] MEDS ORDERED: DEXTROSE 50% 50 ML (IMS) SYR IV ONE (06:30)
--- NOTE | 2023-06-28 07:29 | Progress Note - Surgery ---
PATEL PETERSON 06/28/23 0729: Subjective Date Seen by a Provider: Jun 28, 2023 Time Seen by a Provider: 07:23 Subjective/Events-last exam Pt denies feeling fullness. Last had morphine dose 1 hr ago this morning. Still continues to have nausea but is on Zofran with good control. No vomiting. Ileos navi with better output. Using IS x3 since yesterday. Review of Systems General: No Chills, No Fatigue HEENT: No Head Aches, No Visual Changes Pulmonary: No Dyspnea, No Cough Cardiovascular: No: Chest Pain, Palpitations Gastrointestinal: Nausea, Abdominal Pain (mild diffuse); No: Vomiting Genitourinary: No Dysuria, No Frequency Musculoskeletal: No: neck pain, shoulder pain Neurological: No: Weakness, Confusion Focused Exam Sepsis Stage: Ruled Out Respiratory: Chest Non Tender, Lungs Clear Cardiovascular: Regular Rate, Rhythm, Normal Peripheral Pulses Capillary Refill: Less Than 3 Seconds Peripheral Pulses: 2+ Radial Pulses (R), 2+ Radial Pulses (L) Skin: normal color, warm/dry Objective Exam Vital Signs Date Time Temp Pulse Resp B/P (MAP) Pulse Ox O2 Delivery O2 Flow Rate FiO2 06/28/23 03:29 37.4 69 18 115/68 (84) 96 Room Air 06/28/23 00:27 36.8 80 16 103/66 (78) 95 Room Air 06/27/23 20:15 97 Room Air 06/27/23 20:00 Room Air 06/27/23 19:47 37.0 71 16 113/70 (84) 96 Room Air 06/27/23 16:07 37.1 74 16 128/64 (85) 96 Room Air 06/27/23 11:55 37.2 80 18 113/62 (79) 94 Room Air 06/27/23 09:17 95 Room Air 0.00 06/27/23 08:21 37.0 72 26 113/67 (82) 96 Room Air 06/27/23 08:00 Room Air I & O 06/28/23 07:00 Intake Total 2400 ml Output Total 4050 ml Balance -1650 ml Capillary Refill : Less Than 3 Seconds General Appearance: No Apparent Distress, WD/WN HEENT: PERRL/EOMI, Normal ENT Inspection Neck: Normal Inspection, Non Tender Respiratory: Chest Non Tender, No Accessory Muscle Use, No Respiratory Distress Cardiovascular: Regular Rate, Rhythm, No JVD Peripheral Pulses: 2+ Radial Pulses (R), 2+ Radial Pulses (L) Gastrointestinal: tenderness (mild tenderness throughout), other (ileostomy pink ) Extremity: Non Tender, Other (bilateral AK amputee) Neurologic/Psychiatric: Alert, Oriented x3 Skin: Normal Color, Warm/Dry Lymphatic: No Adenopathy Results Lab Laboratory Tests 06/28/23 04:33: Sodium Level 137, Potassium Level 4.4, Chloride Level 105, Carbon Dioxide Level 18L, Anion Gap 14, Blood Urea Nitrogen 2L, Creatinine 0.51L, Estimat Glomerular Filtration Rate 129, BUN/Creatinine Ratio 4, Glucose Level 56*L, Calcium Level 7.9L, Phosphorus Level 3.4, Magnesium Level 1.8 06/28/23 06:40: Glucometer 128H Microbiology 06/20/23 MRSA Screen - Final, Complete MRSA not isolated 06/20/23 Gram Stain - Final, Complete 06/20/23 Wound Culture - Final, Complete Mixed Bacterial [place] Pseudomonas aeruginosa Coryneform bacteria Staph, 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 CT scan 06/27/23 demonstrated mild pneumoperitoneum. Suggestive of ileus. Limit narcotic use CHASE FERNANDEZ DO 06/28/23 1119: Subjective Subjective/Events-last exam Some nausea at times. Ng tube in. Some output from ileostomy. Feeling a little better than yesterday. Denies n/v fever sweats chills shortness of breath or chest pain at this time. 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 Bilateral leg wounds Hx of bilateral AKA Nausea on zofran with good control Postoperative ileus Consult Wound Care-ileostomy care/teaching Pain Control- oral pain control Continue IS Encourage patient to use PT IRF evaluation ongoing NG tube to LIWS NPO Await better bowel function then advance diet Limit narcotic use Supervisory-Addendum Brief Verification & Attestation Participated in pt care: history, MDM, physical Personally performed: exam, history, MDM, supervision of care Care discussed with: Medical Student Procedures: n/a Results interpretation: Verified all documentation Verification and Attestation of Medical Student E/M Service A medical student performed and documented this service in my presence. I reviewed and verified all information documented by the medical student and made modifications to such information, when appropriate. I personally performed the physical exam and medical decision making. Chase Fernandez, Jun 28, 2023,11:18 PATEL PETERSON Jun 28, 2023 07:29 CHASE FERNANDEZ DO Jun 28, 2023 11:19
[2023-06-28] MEDS: PANTOPRAZOLE INJECTION 40 MG VIAL IV SCH (08:15)
[2023-06-28] MEDS ORDERED: POTASSIUM CHLORIDE INJ 20 MEQ in D5 NS 1,000 ML IV SOLN 1,000 ML IV SCH (08:30)
[2023-06-28 09:24] LABS: HEMATOCRIT 36 % (40-54); HEMOGLOBIN 11.7 g/dL (13.3-17.7); MEAN CORPUSCULAR HEMOGLOBIN 30 pg (25-34); MEAN CORPUSCULAR HGB CONC 33 g/dL (32-36); MEAN CORPUSCULAR VOLUME 91 fL (80-99); PLATELET COUNT 388 10^3/uL (130-400); WHITE BLOOD COUNT 5.9 10^3/uL (4.3-11.0)
[2023-06-28] MEDS: D5 NS + KCL 20 MEQ/L 1,000 ML 1,000 ML IV SCH (09:33)
[2023-06-28] MEDS: MICONAZOLE 2% POWDER 90 GM TOP SCH ×2 (09:33→20:55)
[2023-06-28 09:34] LABS: CALCIUM 7.9 MG/DL (8.5-10.1); CREATININE SERUM 0.54 MG/DL (0.60-1.30); POTASSIUM 4.2 MMOL/L (3.6-5.0)
[2023-06-28] MEDS: ENOXAPARIN 40 MG/0.4 ML SYRINGE SC SCH (11:39)
--- NOTE | 2023-06-28 16:24 | Consultation - Hospitalist ---
HPI History of Present Illness: HPI/Chief Complaint Alex Ma is a 43 year old male with PMH PVD, s/p bilateral AKA, history of DVT, who was admitted with colonic pseudo-obstruction. He was admitted to surgery and required colectomy with ostomy. He is still having nausea. He is not having any ostomy output. He has been NPO. His blood sugar was low this morning. He did not notice any symptoms. He is not diabetic. Source: patient Exam Limitations: no limitations Date Seen 06/28/23 Attending Physician No,Local Physician PCP Admitting Physician: Bulmaro Javier DO Attending Physician: Bulmaro Javier DO Referring Physician Date of Admission Jun 20, 2023 at 07:04 Home Medications & Allergies Home Medications Reviewed patient Home Medication Reconciliation performed by pharmacy medication reconciliations color technician and/or nursing. Patients Allergies have been reviewed. Allergies Allergies Coded Allergies No Known Drug Allergies (Mybrcryibt26/9/21) He denies allergies to drugs and food, says he has seasonal allergies Past Phxgtvu-Izalpy-Wodkuz Hx Patient Social History Tobacco Use?: Yes Smoking Status: Current Everyday Smoker Substance use?: No Alcohol Use?: Yes (1 styrofoam cup of vodka daily) Alcohol type: Beer, Hard Liquor Alcohol Frequency: Daily Pt feels they are or have been: No Immunizations Up To Date First/Initial COVID19 Vaccinat: none Second COVID19 Vaccination Bear: DOESN'T PLAN ON TAKING IT Tetanus Booster (TDap): Less Than 5 Years Hepatitis A: Yes Hepatitis B: Yes Seasonal Allergies Seasonal Allergies: Yes Current Status Advance Directives: No Communicates: Verbally Primary Language: Bruneian Preferred Spoken Language: Bruneian Is interpretation needed?: No Past Medical History Surgeries: Abdominal (hernia, repaired at age 5), Amputation, Orthopedic Currently Using CPAP: No Currently Using BIPAP: No Chronic Edema/Swelling, Deep Vein Thrombosis, Peripheral Vascular Neuropathy Chronic Diarrhea Amputee (bilateral AKA) Loss of Vision: Denies Hearing Impairment: Denies Psoriasis Blood Disorders: Yes (DVT'S) Family Medical History Other Conditions/Hx (No known GI disease, diabetes, HTN, HLD, heart disease, cancer, CVA) EXTREME NON-COMPLIANCE IN ALL ASPECTS OF CARE SOCIAL HISTORY: -SMOKES 2-3 PPD -ETOH--DRINKS 1.75 LITERS OF HARD LIQUOR DAILY--STATES LATELY HE HAS ONLY BEEN DRINKING "3 OR 4 GLASSES" OF HARD LIQUOR/DAY. 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 -ALL TEETH REMOVED -HERNIA REPAIR Review of Systems Constitutional: weakness Respiratory: no symptoms reported Cardiovascular: no symptoms reported Gastrointestinal: abdominal pain, nausea Physical Exam Physical Exam Vital Signs Vital Signs - First Documented 06/22/23 06/23/23 06/23/23 00:00 08:08 08:18 Temp 37.2 Pulse 85 Resp 16 B/P (MAP) 112/84 (93) Pulse Ox 95 O2 Delivery Room Air O2 Flow Rate 0.00 FiO2 21 Capillary Refill : Less Than 3 Seconds Height, Weight, BMI Height: '" Weight: lbs. oz. kg; 61.60 BMI Method: General Appearance: No Apparent Distress, Chronically ill Eyes: Bilateral Eye PERRL, Bilateral Eye EOMI Neck: Normal Inspection, Supple Respiratory: Lungs Clear, Normal Breath Sounds, No Respiratory Distress Cardiovascular: Regular Rate, Rhythm, No Murmur Gastrointestinal: Normal Bowel Sounds, Soft, Tenderness, Other (ostomy RLQ) Rectal: Tenderness Extremity: Non Tender, Other (bilateral AKA) Neurologic/Psychiatric: Alert, Normal Mood/Affect Skin: Normal Color, Warm/Dry Results Results/Procedures Labs Laboratory Tests 06/27/23 05:26 06/28/23 04:33 06/28/23 09:12 Patient resulted labs reviewed. Imaging: Reviewed Imaging Report Assessment/Plan Assessment and Plan Assess & Plan/Chief Complaint Colonic pseudo-obstruction s/p colectomy s/p ostomy Hypoglycemia Surgery primary Pain regimen Await return of bowel function NPO Transition to dextrose containing fluids Peripheral vascular disease History of bilateral AKA History of DVT DVT prophylaxis: Lovenox Thank you for the consult. We will round as needed. Please contact the hospitalist collections representative with any questions or concerns. Diagnosis/Problems Diagnosis/Problems (1) Colonic pseudoobstruction Status: Acute (2) S/P partial colectomy Status: Acute (3) Ileostomy in place Status: Acute (4) Hypoglycemia Status: Acute (5) History of DVT (deep vein thrombosis) Status: Chronic (6) Peripheral vascular disease Status: Chronic (7) Status post above-knee amputation of both lower extremities Status: Chronic RAMIN FLORES MD Jun 28, 2023 16:24
[2023-06-28] MEDS: RT-ALBUTEROL SULF 2.5 MG/3 ML PRE-MIX VIAL INH SCH (22:58)
[2023-06-29] MEDS: D5 NS + KCL 20 MEQ/L 1,000 ML 1,000 ML IV SCH ×4 (00:52→21:25)
[2023-06-29] MEDS: morphine INJ 4 MG/ML 1 ML (VIAL/SYRINGE) IV PRN ×7 (00:53→21:33)
[2023-06-29 04:28] LABS: HEMATOCRIT 38 % (40-54); HEMOGLOBIN 12.5 g/dL (13.3-17.7); MEAN CORPUSCULAR HEMOGLOBIN 29 pg (25-34); MEAN CORPUSCULAR HGB CONC 33 g/dL (32-36); MEAN CORPUSCULAR VOLUME 90 fL (80-99); MEAN PLATELET VOLUME 8.9 fL (9.0-12.2); PLATELET COUNT 409 10^3/uL (130-400); WHITE BLOOD COUNT 4.9 10^3/uL (4.3-11.0)
[2023-06-29 04:46] LABS: BUN/CREATININE RATIO 4; CALCIUM 8.3 MG/DL (8.5-10.1); CARBON DIOXIDE 25 MMOL/L (21-32); CHLORIDE 103 MMOL/L (98-107); CREATININE SERUM 0.53 MG/DL (0.60-1.30); GFR ESTIMATED 128; GLUCOSE 102 MG/DL (70-105); MAGNESIUM 1.8 MG/DL (1.6-2.4); PHOSPHORUS 3.6 MG/DL (2.3-4.7); POTASSIUM 4.2 MMOL/L (3.6-5.0); SODIUM 136 MMOL/L (135-145)
[2023-06-29] MEDS: ONDANSETRON INJECTION 4 MG/2 ML (SDV) IV PRN ×3 (04:49→15:28)
[2023-06-29 04:53] VITALS: BP 140/83
[2023-06-29] MEDS: MAGNESIUM 1 GM/100 ML IVPB 100 ML IV SCH ×3 (07:24→11:35)
[2023-06-29] MEDS: POTASSIUM CL 10MEQ/50ML IVPB 50 ML IV SCH (07:24)
[2023-06-29] MEDS: POTASSIUM CHLORIDE 20 MEQ TABLET PO SCH (07:25)
[2023-06-29] MEDS: POTASSIUM BICARB 20 MEQ effervescent TABLET PO SCH (07:25)
--- NOTE | 2023-06-29 07:38 | Progress Note - Surgery ---
PATEL PETERSON 06/29/23 0738: Subjective Date Seen by a Provider: Jun 29, 2023 Time Seen by a Provider: 07:28 Subjective/Events-last exam Pt is a 43 y/o male who presents with abd pain and distention. Reports that pain is still bothering him and his abd still feels like it is full of gas w/o any significant change. Reports heartburn and nausea that interrupts his sleep. No vomiting. He reports that he thinks his incision might be leaking. He still has an NG tube placed. Review of Systems General: No Chills, No Night Sweats HEENT: No Head Aches, No Visual Changes Pulmonary: No Dyspnea, No Cough Cardiovascular: No: Chest Pain, Palpitations Gastrointestinal: Nausea, Abdominal Pain; No: Vomiting Genitourinary: No Dysuria, No Frequency Musculoskeletal: No: neck pain, shoulder pain Neurological: No: Change in speech, Confusion Focused Exam Sepsis Stage: Ruled Out Respiratory: No Accessory Muscle Use, No Respiratory Distress Cardiovascular: Regular Rate, Rhythm, Normal Peripheral Pulses Peripheral Pulses: 2+ Radial Pulses (R), 2+ Radial Pulses (L) Skin: normal color, warm/dry Objective Exam Vital Signs Date Time Temp Pulse Resp B/P (MAP) Pulse Ox O2 Delivery O2 Flow Rate FiO2 06/29/23 05:51 95 Room Air 06/29/23 04:53 36.9 73 18 140/83 (102) 95 Room Air 06/28/23 23:43 37.0 66 18 120/77 (91) 96 Room Air 06/28/23 21:24 Room Air 06/28/23 20:00 36.7 68 18 120/71 (87) 96 Room Air 06/28/23 20:00 Room Air 06/28/23 15:30 36.6 65 14 124/69 (87) 97 Room Air 06/28/23 11:15 36.1 71 14 125/69 (87) 94 Room Air 06/28/23 08:53 Room Air 06/28/23 07:39 36.2 70 14 122/72 (89) 73 Room Air I & O 06/29/23 07:00 Intake Total 0 ml Output Total 2950 ml Balance -2950 ml Capillary Refill : Less Than 3 Seconds General Appearance: No Apparent Distress, Chronically ill Neck: Normal Inspection, Supple Respiratory: Lungs Clear, Normal Breath Sounds, No Respiratory Distress Cardiovascular: Regular Rate, Rhythm, No Murmur Peripheral Pulses: 2+ Radial Pulses (R), 2+ Radial Pulses (L) Gastrointestinal: soft, tenderness (mild tenderness throughout), other (ileostomy light brown with some output) Extremity: Non Tender, Other (bilateral AKA) Neurologic/Psychiatric: Alert, Normal Mood/Affect Skin: Normal Color, Warm/Dry Results Lab Laboratory Tests 06/28/23 09:12: White Blood Count 5.9, Red Blood Count 3.96L, Hemoglobin 11.7L, Hematocrit 36L, Mean Corpuscular Volume 91, Mean Corpuscular Hemoglobin 30, Mean Corpuscular Hemoglobin Concent 33, Red Cell Distribution Width 16.7H, Platelet Count 388, Mean Platelet Volume 9.0, Sodium Level 135, Potassium Level 4.2, Chloride Level 104, Carbon Dioxide Level 19L, Anion Gap 12, Blood Urea Nitrogen 2L, Creatinine 0.54L, Estimat Glomerular Filtration Rate 127, BUN/Creatinine Ratio 4, Glucose Level 89, Calcium Level 7.9L 06/28/23 12:28: Glucometer 103 06/28/23 17:38: Glucometer 103 06/29/23 04:15: White Blood Count 4.9, Red Blood Count 4.25L, Hemoglobin 12.5L, Hematocrit 38L, Mean Corpuscular Volume 90, Mean Corpuscular Hemoglobin 29, Mean Corpuscular Hemoglobin Concent 33, Red Cell Distribution Width 16.6H, Platelet Count 409H, Mean Platelet Volume 8.9L, Sodium Level 136, Potassium Level 4.2, Chloride Level 103, Carbon Dioxide Level 25, Anion Gap 8, Blood Urea Nitrogen < 2L, Creatinine 0.53L, Estimat Glomerular Filtration Rate 128, BUN/Creatinine Ratio 4, Glucose Level 102, Calcium Level 8.3L, Phosphorus Level 3.6, Magnesium Level 1.8 Microbiology 06/20/23 MRSA Screen - Final, Complete MRSA not isolated 06/20/23 Gram Stain - Final, Complete 06/20/23 Wound Culture - Final, Complete Mixed Bacterial Aleta Pseudomonas aeruginosa Coryneform bacteria Staph, Coag 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 Slightly improved from yesterday he states. Still with some ileostomy output. Denies n/v fever sweats chills shortness of breath or chest pain. 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 Bilateral leg wounds Hx of bilateral AKA Nausea on zofran Postoperative ileus Wound Care-ileostomy care/teaching Pain Control- oral pain control Continue IS Encourage patient to use PT IRF evaluation ongoing NG tube to LIWS NPO Await better bowel function then advance diet Limit narcotic use If not improving will consider sbft Supervisory-Addendum Brief Verification & Attestation Participated in pt care: history, MDM, physical Personally performed: exam, history, MDM, supervision of care Care discussed with: Medical Student Procedures: n/a Results interpretation: Verified all documentation Verification and Attestation of Medical Student E/M Service A medical student performed and documented this service in my presence. I reviewed and verified all information documented by the medical student and made modifications to such information, when appropriate. I personally performed the physical exam and medical decision making. Chase Fernandez, Jun 29, 2023,09:59 PATEL PETERSON Jun 29, 2023 07:38 CHASE FERNANDEZ DO Jun 29, 2023 09:59
[2023-06-29] MEDS: PANTOPRAZOLE INJECTION 40 MG VIAL IV SCH (08:03)
[2023-06-29] MEDS: MICONAZOLE 2% POWDER 90 GM TOP SCH ×2 (08:04→21:45)
[2023-06-29 08:29] VITALS: BP 126/85
[2023-06-29] MEDS: ENOXAPARIN 40 MG/0.4 ML SYRINGE SC SCH (11:35)
[2023-06-29] MEDS: RT-ALBUTEROL SULF 2.5 MG/3 ML PRE-MIX VIAL INH SCH (11:38)
[2023-06-29 11:42] VITALS: BP 111/76
[2023-06-29 16:17] VITALS: BP 116/75
[2023-06-29 20:27] VITALS: BP 114/66
[2023-06-30] VITALS (8 sets, daily range): BP systolic 110–120; BP diastolic 68–83
[2023-06-30] MEDS: morphine INJ 4 MG/ML 1 ML (VIAL/SYRINGE) IV PRN ×7 (01:24→23:35)
[2023-06-30 06:30] LABS: HEMATOCRIT 39 % (40-54); HEMOGLOBIN 12.7 g/dL (13.3-17.7); MEAN CORPUSCULAR HEMOGLOBIN 30 pg (25-34); MEAN CORPUSCULAR HGB CONC 33 g/dL (32-36); MEAN CORPUSCULAR VOLUME 90 fL (80-99); MEAN PLATELET VOLUME 8.8 fL (9.0-12.2); PLATELET COUNT 425 10^3/uL (130-400); WHITE BLOOD COUNT 5.2 10^3/uL (4.3-11.0)
[2023-06-30 06:48] LABS: BUN/CREATININE RATIO 4; CARBON DIOXIDE 23 MMOL/L (21-32); CHLORIDE 105 MMOL/L (98-107); CREATININE SERUM 0.56 MG/DL (0.60-1.30); GFR ESTIMATED 125; GLUCOSE 96 MG/DL (70-105); MAGNESIUM 1.9 MG/DL (1.6-2.4); PHOSPHORUS 3.9 MG/DL (2.3-4.7); POTASSIUM 4.4 MMOL/L (3.6-5.0); SODIUM 136 MMOL/L (135-145)
[2023-06-30] MEDS: D5 NS + KCL 20 MEQ/L 1,000 ML 1,000 ML IV SCH ×2 (07:18→20:30)
--- NOTE | 2023-06-30 07:21 | Progress Note - Surgery ---
PATEL PETERSON 06/30/23 0721: Subjective Date Seen by a Provider: Jun 30, 2023 Time Seen by a Provider: 07:16 Subjective/Events-last exam Pt states that abd pain is much improved and that he is passing gas into his ileostomy. Reports heartburn still but denies nausea or vomiting. Ileostomy output: 150 mL over 12 hrs. Review of Systems General: No Chills, No Night Sweats HEENT: No Visual Changes, No Eye Pain Pulmonary: No Dyspnea, No Cough Cardiovascular: No: Chest Pain, Palpitations Gastrointestinal: Abdominal Pain (mild diffuse); No: Nausea, Vomiting Genitourinary: No Dysuria, No Frequency Musculoskeletal: No: neck pain, shoulder pain Neurological: No: Change in speech, Confusion Focused Exam Sepsis Stage: Ruled Out Respiratory: No Accessory Muscle Use, No Respiratory Distress Cardiovascular: Regular Rate, Rhythm, Normal Peripheral Pulses Peripheral Pulses: 2+ Radial Pulses (R), 2+ Radial Pulses (L) Skin: normal color, warm/dry Objective Exam Vital Signs Date Time Temp Pulse Resp B/P (MAP) Pulse Ox O2 Delivery O2 Flow Rate FiO2 06/30/23 04:08 36.6 73 16 117/78 (91) 97 Room Air 06/30/23 01:57 36.2 06/30/23 01:49 36.2 68 16 120/78 (92) 96 Room Air 06/30/23 00:00 36.2 68 16 120/78 (92) 96 Room Air 06/29/23 20:27 36.5 69 16 114/66 (82) 94 Room Air 06/29/23 20:00 96 Room Air 06/29/23 16:17 36.6 75 16 116/75 (89) 94 Room Air 06/29/23 11:42 37.2 77 18 111/76 (88) 95 Room Air 06/29/23 08:29 36.6 71 16 126/85 (99) 95 Room Air 06/29/23 08:00 Room Air I & O 06/30/23 07:00 Intake Total 1200 ml Output Total 1515 ml Balance -315 ml Capillary Refill : Less Than 3 Seconds General Appearance: No Apparent Distress, Chronically ill HEENT: PERRL/EOMI, Normal ENT Inspection Neck: Full Range of Motion, Non Tender, Supple Respiratory: Chest Non Tender, No Accessory Muscle Use, No Respiratory Distress Cardiovascular: Regular Rate, Rhythm, No JVD Peripheral Pulses: 2+ Radial Pulses (R), 2+ Radial Pulses (L) Gastrointestinal: soft, tenderness (mild), other (ileostomy light brown with some output) Extremity: Normal Inspection (double AKA), Non Tender Neurologic/Psychiatric: Alert, Oriented x3, Normal Mood/Affect Skin: Normal Color, Warm/Dry Lymphatic: No Adenopathy Results Lab Laboratory Tests 06/29/23 11:38: Glucometer 142H 06/29/23 18:20: Glucometer 116H 06/30/23 06:07: White Blood Count 5.2, Red Blood Count 4.27L, Hemoglobin 12.7L, Hematocrit 39L, Mean Corpuscular Volume 90, Mean Corpuscular Hemoglobin 30, Mean Corpuscular Hemoglobin Concent 33, Red Cell Distribution Width 16.6H, Platelet Count 425H, M irene Platelet Volume 8.8L, Sodium Level 136, Potassium Level 4.4, Chloride Level 105, Carbon Dioxide Level 23, Anion Gap 8, Blood Urea Nitrogen < 2L, Creatinine 0.56L, Estimat Glomerular Filtration Rate 125, BUN/Creatinine Ratio 4, Glucose Level 96, Calcium Level 8.0L, Phosphorus Level 3.9, Magnesium Level 1.9 Microbiology 06/20/23 MRSA Screen - Final, Complete MRSA not isolated 06/20/23 Gram Stain - Final, Complete 06/20/23 Wound Culture - Final, Complete Mixed Bacterial [place]ta Pseudomonas aeruginosa 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 Wound Care-ileostomy care/teaching Pain Control- oral pain control Continue IS Encourage patient to use PT IRF evaluation ongoing NG tube to LIWS NPO Await better bowel function then advance diet Limit narcotic use CHASE FERNANDEZ DO 06/30/23 1545: Subjective Subjective/Events-last exam Feeling better today. Having slight output from ileostomy and some gas. States less pressure in abdomen. Ng tube in and wanting out. Denies any new complaints. Denies n/v fever sweats chills shortness of breath or chest pain. Objective Exam General Appearance: No Apparent Distress, Chronically ill HEENT: PERRL/EOMI, Normal ENT Inspection Neck: Full Range of Motion, Non Tender Respiratory: Chest Non Tender, No Accessory Muscle Use, No Respiratory Distress Cardiovascular: Regular Rate, Rhythm, No JVD Gastrointestinal: soft, tenderness (less diffuse), other (ileostomy pink with some light brown liquid output) Extremity: Normal Inspection (double AKA), Non Tender Neurologic/Psychiatric: Alert, Oriented x3, Normal Mood/Affect Skin: Normal Color, Warm/Dry Lymphatic: No Adenopathy Assessment/Plan Assessment/Plan Assessment/Plan 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 Wound Care-ileostomy care/teaching Pain Control- oral pain control Continue IS Encourage patient to use PT IRF evaluation ongoing NG tube to LIWS NPO Await better bowel function then advance diet Limit narcotic use Supervisory-Addendum Brief Verification & Attestation Participated in pt care: history, MDM, physical Personally performed: exam, history, MDM, supervision of care Care discussed with: Medical Student Procedures: n/a Results interpretation: Verified all documentation Verification and Attestation of Medical Student E/M Service A medical student performed and documented this service in my presence. I reviewed and verified all information documented by the medical student and made modifications to such information, when appropriate. I personally performed the physical exam and medical decision making. Chase Fernandez, Jun 30, 2023,15:45 PATEL PETERSON Jun 30, 2023 07:21 CHASE FERNANDEZ DO Jun 30, 2023 15:45
[2023-06-30] MEDS: POTASSIUM CL 10MEQ/50ML IVPB 50 ML IV SCH (07:42)
[2023-06-30] MEDS: MAGNESIUM 1 GM/100 ML IVPB 100 ML IV SCH ×3 (07:42→10:21)
[2023-06-30] MEDS: POTASSIUM CHLORIDE 20 MEQ TABLET PO SCH (07:43)
[2023-06-30] MEDS: POTASSIUM BICARB 20 MEQ effervescent TABLET PO SCH (07:43)
[2023-06-30] MEDS: PANTOPRAZOLE INJECTION 40 MG VIAL IV SCH (09:06)
[2023-06-30] MEDS: MICONAZOLE 2% POWDER 90 GM TOP SCH ×2 (09:07→22:09)
--- NOTE | 2023-06-30 10:32 | Physical Therapy Daily Note ---
PT Daily Note-Current Subjective Pt found lying in bed upon entry. Agreed to PT. Reports pain at stitching sites but does not rate or describe. Pain Section J - Health Conditions 1. Rarely or not at all 2. Occasionally 3. Frequently 4. Almost constantly 8. Unable to answer Pain Effect on Sleep: 4 Pain Interference with Therapy: 4 Pain Interference w/Day-to-Day: 4 Mental Status Patient Orientation: Person, Place Attachments: NG Tube, IV Transfers SCALE: Activities may be completed with or without assistive devices. 8-Fmnvenyfrs-fgktedf completes the activity by him/herself with no assistance from a helper. 5-Set-up or Clean-up Assistance-helper sets up or cleans up; patient completes activity. [place] assists only prior to or following the activity. 4-Supervision or Touching Assistance-helper provides verbal cues and/or touching/steadying and/or contact guard assistance as patient completes activity. Assistance may be provided throughout the activity or intermittently. 3-Partial/Moderate Assistance-helper does LESS THAN HALF the effort. [place] lifts, holds or supports trunk or limbs, but provides less than half the effort. 2-Substantial/Maximal Assistance-helper does MORE THAN HALF the effort. [place] lifts or holds trunk or limbs and provides more than half the effort. 9-Mygbkcukl-ihiwgh does ALL the effort. Patient does none of the effort to complete the activity. Or, the assistance of 2 or more helpers is required for the patient to complete the activity. If activity was not attempted, code reason: 7-Patient Refused. 9-Not Applicable-not attempted and the patient did not perform the activity before the current illness, exacerbation or injury. 10-Not Attempted due to Environmental Limitations-(lack of equipment, weather restraints, etc.). 88-Not Attempted due to Medical Conditions or Safety Concerns. Sit to Lying (QC): 4 Lying to Sitting/Side of Bed(Q: 4 Treatments Seated Therapeutic Exercises (B) x 10 ea: - Hip flx - Hip abd - Hip add Assessment Current Status: Good Progress Pt performs lying to sitting and sitting to lying transfer /c SBA only for safety due to strength and functional deficits. Pt is very slow to perform transfer. Increased pain reported at stitching sites while moving. Displays decent muscle strength /c limited ROM while performing seated therapeutic exercises. Continue to progress pt per POC. PT Detention Goals Supervisor Refining Goals PT Detention Goals Time Frame: Jul 05, 2023 Roll Left & Right (QC): 6 Sit to Lying (QC): 6 Lying-Sitting on Side/Bed(QC): 6 PT Plan Treatment/Plan Treatment Plan: Continue Plan of Care Treatment Plan: Bed Mobility, Education, Functional Activity Bronson, Functional Strength, Safety, Therapeutic Exercise, Transfers Treatment Duration: Jul 05, 2023 Frequency: 5 times per week Estimated Hrs Per Day: .25 hour per day Time Time In: 813 Time Out: 829 DATE: Jun 30, 2023 Total Billed Treatment Time: 16 Total Billed Treatment 1 visit EX x 1 GETACHEW SAL KNOCK OUT HAND Jun 30, 2023 10:32
[2023-06-30] MEDS: ENOXAPARIN 40 MG/0.4 ML SYRINGE SC SCH (13:25)
[2023-06-30] MEDS: ONDANSETRON INJECTION 4 MG/2 ML (SDV) IV PRN ×2 (15:43→20:30)
[2023-06-30] MEDS ORDERED: DIATRIZOATE MEGLUM/SODIUM 37% 120 ML (GASTROGRAFIN) NG ONE (15:45)
--- NOTE | 2023-06-30 22:02 | Diagnostic Imaging Report ---
INDICATION: Recent colectomy. Abdominal distention. COMPARISON: CT dated 06/27/2023 FINDINGS: Mixture of 120 mL Gastrografin and 120 mL of water was injected through the pre-existing indwelling nasogastric tube. Serial radiographs of the abdomen were obtained. Bone Char Puller view of the abdomen demonstrates moderate diffuse gaseous distention of the small bowel. Surgical skin chuckie are noted over the lower abdomen and pelvis. There is no large collection of free intraperitoneal air. After injection of contrast, there is very slow migration of contrast through the small bowel. There is also delayed gastric emptying. There is residual contrast within the lumen of the stomach at 3.5 hours. At 9 hours, there are loops of unopacified small bowel within the right hemiabdomen. IMPRESSION: 1. Pronounced diffuse gaseous distention of the small bowel with incomplete migration of contrast at 9 hours. Although findings could be on the basis of small bowel obstruction, surgical skin chuckie suggest recent postoperative status. Profound postoperative ileus may have a similar appearance. Clinical correlation is advised. Dictated by: Dictated on workstation # [id number]
[2023-07-01] MEDS: ONDANSETRON INJECTION 4 MG/2 ML (SDV) IV PRN ×4 (02:28→16:59)
[2023-07-01] MEDS: morphine INJ 4 MG/ML 1 ML (VIAL/SYRINGE) IV PRN ×6 (02:29→21:24)
[2023-07-01 03:22] VITALS: BP 123/81
[2023-07-01] MEDS: D5 NS + KCL 20 MEQ/L 1,000 ML 1,000 ML IV SCH ×2 (06:19→16:58)
[2023-07-01 06:26] LABS: MAGNESIUM 2.1 MG/DL (1.6-2.4); PHOSPHORUS 4.9 MG/DL (2.3-4.7)
[2023-07-01] MEDS: MAGNESIUM 1 GM/100 ML IVPB 100 ML IV SCH (06:33)
[2023-07-01] MEDS: POTASSIUM CL 10MEQ/50ML IVPB 50 ML IV SCH (06:33)
[2023-07-01] MEDS: POTASSIUM CHLORIDE 20 MEQ TABLET PO SCH (06:34)
[2023-07-01] MEDS: POTASSIUM BICARB 20 MEQ effervescent TABLET PO SCH (06:34)
--- NOTE | 2023-07-01 07:30 | Progress Note - Surgery ---
PATEL PETERSON 07/01/2330: Subjective Date Seen by a Provider: Jul 01, 2023 Time Seen by a Provider: 07:26 Subjective/Events-last exam Pt states that he vomited once last night around the time of his small bowel follow through. He states that his abd is no more tender than yesterday. He has been feeling naseous which is usually controlled with zofran. Notes clear liquid leaking from his chuckie. 60 mL out of ileostomy over 8 hrs. Review of Systems General: No Chills, No Night Sweats HEENT: No Head Aches, No Visual Changes Pulmonary: No Dyspnea, No Cough Cardiovascular: No: Chest Pain, Palpitations Gastrointestinal: Nausea, Vomiting Genitourinary: No Dysuria, No Frequency Musculoskeletal: No: neck pain, shoulder pain Neurological: No: Change in speech, Confusion Focused Exam Sepsis Stage: Ruled Out Respiratory: No Accessory Muscle Use, No Respiratory Distress Cardiovascular: Regular Rate, Rhythm, Normal Peripheral Pulses Capillary Refill: Less Than 3 Seconds Peripheral Pulses: 2+ Radial Pulses (R), 2+ Radial Pulses (L) Skin: normal color, warm/dry, damp (leaking from his surgical chuckie) Objective Exam Vital Signs Date Time Temp Pulse Resp B/P (MAP) Pulse Ox O2 Delivery O2 Flow Rate FiO2 07/01/23 03:22 37.0 69 20 123/81 (95) 95 Room Air 06/30/23 23:39 36.4 75 20 119/82 (94) 97 Room Air 06/30/23 20:08 36.8 72 18 110/69 (83) 96 Room Air 06/30/23 20:00 Room Air 06/30/23 16:27 37.1 73 20 118/71 (87) 94 Room Air 06/30/23 12:40 37.0 67 18 120/83 (95) 99 Room Air 06/30/23 08:35 36.4 80 18 112/68 (83) 94 OxyMask 06/30/23 08:00 Room Air I & O 07/01/23 07:00 Intake Total 200 ml Output Total 3385 ml Balance -3185 ml Capillary Refill : Less Than 3 Seconds General Appearance: No Apparent Distress, Chronically ill HEENT: PERRL/EOMI, Normal ENT Inspection Neck: Full Range of Motion, Non Tender Respiratory: Chest Non Tender, No Accessory Muscle Use, No Respiratory Distress Cardiovascular: Regular Rate, Rhythm, No JVD Peripheral Pulses: 2+ Radial Pulses (R), 2+ Radial Pulses (L) Gastrointestinal: soft, distended (mildly), tenderness (mild), other (ileostomy w/ light brown liquid output) Extremity: Normal Inspection (double AKA), Non Tender Neurologic/Psychiatric: Alert, Oriented x3, Normal Mood/Affect Skin: Normal Color, Warm/Dry, Other (Clear liquid discharge from bottom two chuckie in abd. 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 Impression is that it could be SBO or profound post op ileus. Wound Care-ileostomy care/teaching Pain Control- oral pain control Picc line placement with nutrition Continue IS Encourage patient to use PT IRF evaluation ongoing NG tube to LIWS NPO Await better bowel function then advance diet Limit narcotic use CHASE FERNANDEZ DO 07/01/23 1602: Subjective Subjective/Events-last exam Having some slight serous appearing drainage from lower portion of incision. Minimal output from ostomy. Pain improved. Some nausea. NG tube in. small bowel follow through with incomplete progression of contrast and dilation of small bowel. Objective Exam General Appearance: No Apparent Distress, Chronically ill HEENT: PERRL/EOMI, Normal ENT Inspection Neck: Full Range of Motion, Non Tender Respiratory: Chest Non Tender, No Accessory Muscle Use, No Respiratory Distress Cardiovascular: Regular Rate, Rhythm, No JVD Gastrointestinal: soft, distended (mildly), tenderness (mild), other (ileostomy w/ light brown liquid output, incision no signs of infection, serous fluid from bottom of incision) Extremity: Normal Inspection (bilateral AKA), Non Tender Neurologic/Psychiatric: Alert, Oriented x3 Skin: Normal Color, Warm/Dry Lymphatic: No Adenopathy Assessment/Plan Assessment/Plan Assessment/Plan 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 Impression is that it could be SBO or profound post op ileus. Wound Care-ileostomy care/teaching Pain Control- oral pain control Picc line placement with nutrition Continue IS Encourage patient to use PT IRF evaluation ongoing NG tube to LIWS NPO Await better bowel function then advance diet Limit narcotic use PICC Line and start tpn Supervisory-Addendum Brief Verification & Attestation Participated in pt care: history, MDM, physical Personally performed: exam, history, MDM, supervision of care Care discussed with: Medical Student Procedures: n/a Results interpretation: Verified all documentation Verification and Attestation of Medical Student E/M Service A medical student performed and documented this service in my presence. I reviewed and verified all information documented by the medical student and made modifications to such information, when appropriate. I personally performed the physical exam and medical decision making. Chase Fernandez, Jul 01, 2023,16:03 PATEL PETERSON Jul 01, 2023 07:30 CHASE FERNANDEZ DO Jul 01, 2023 16:02
[2023-07-01 07:50] VITALS: BP 124/84
[2023-07-01] MEDS: PANTOPRAZOLE INJECTION 40 MG VIAL IV SCH (08:06)
[2023-07-01] MEDS: MICONAZOLE 2% POWDER 90 GM TOP SCH ×2 (08:07→23:19)
--- NOTE | 2023-07-01 11:28 | Physical Therapy Progress Note ---
Therapy Progress Note Patient adamantly declined PT due to major abdominal discomfort, PT attempted to encourage patient to participate, however, patient continued to decline. Rn notified. PRIYANK RAMIREZ PT Jul 01, 2023 11:28
[2023-07-01 11:47] VITALS: BP 111/71
[2023-07-01] MEDS: ENOXAPARIN 40 MG/0.4 ML SYRINGE SC SCH (12:20)
--- NOTE | 2023-07-01 13:01 | Occ Therapy Progress Note ---
Therapy Progress Note Patient adamantly declined OT due to major abdominal discomfort w. new NG tube, OT attempted to encourage patient to participate and perform HEP , however, patient continued to decline. ALONA JACOB OT Jul 01, 2023 13:01
[2023-07-01 14:49] LABS: ALBUMIN 2.6 GM/DL (3.2-4.5); BILIRUBIN,TOTAL 0.3 MG/DL (0.1-1.0); CALCIUM 8.1 MG/DL (8.5-10.1); CREATININE SERUM 0.63 MG/DL (0.60-1.30); MAGNESIUM 1.9 MG/DL (1.6-2.4); PHOSPHORUS 4.8 MG/DL (2.3-4.7); POTASSIUM 4.3 MMOL/L (3.6-5.0); TOTAL PROTEIN 5.4 GM/DL (6.4-8.2)
[2023-07-01 16:08] VITALS: BP 116/76
[2023-07-01] MEDS: NS IV 1000 ML 1,000 ML IV SCH (16:59)
[2023-07-01] MEDS ORDERED: SODIUM PHOSPHATE IV SCH ×10 (17:00)
[2023-07-01] MEDS ORDERED: SODIUM ACETATE IV SCH ×10 (17:00)
[2023-07-01] MEDS ORDERED: [UNRECOGNIZED DRUG - OTHER] IV SCH ×10 (17:00)
[2023-07-01] MEDS ORDERED: POTASSIUM CHLORIDE IV SCH ×10 (17:00)
[2023-07-01 19:55] VITALS: BP 117/77
[2023-07-01 23:29] VITALS: BP 109/71
[2023-07-02] MEDS: morphine INJ 4 MG/ML 1 ML (VIAL/SYRINGE) IV PRN ×6 (01:50→20:30)
[2023-07-02 04:00] VITALS: BP 113/74
[2023-07-02 05:51] LABS: ALBUMIN 2.6 GM/DL (3.2-4.5); BILIRUBIN,TOTAL 0.3 MG/DL (0.1-1.0); CREATININE SERUM 0.62 MG/DL (0.60-1.30); MAGNESIUM 1.9 MG/DL (1.6-2.4); PHOSPHORUS 4.3 MG/DL (2.3-4.7); POTASSIUM 4.3 MMOL/L (3.6-5.0); TOTAL PROTEIN 5.3 GM/DL (6.4-8.2)
[2023-07-02] MEDS: POTASSIUM CL 10MEQ/50ML IVPB 50 ML IV SCH (06:03)
[2023-07-02] MEDS: MAGNESIUM 1 GM/100 ML IVPB 100 ML IV SCH ×3 (06:03→07:39)
[2023-07-02] MEDS: POTASSIUM CHLORIDE 20 MEQ TABLET PO SCH (06:04)
[2023-07-02] MEDS: POTASSIUM BICARB 20 MEQ effervescent TABLET PO SCH (06:04)
--- NOTE | 2023-07-02 07:25 | Progress Note - Surgery ---
JOSE ALBERTO HUSTON 07/02/23 0725: Subjective Date Seen by a Provider: Jul 02, 2023 Time Seen by a Provider: 07:00 Subjective/Events-last exam Pt vomited once yesterday and none overnight. Nausea. Minimal incisional pain. pt refused OT and PT yesterday due to abd pain. incision site healing well. diffuse abd pruritus. Objective Exam Vital Signs Date Time Temp Pulse Resp B/P (MAP) Pulse Ox O2 Delivery O2 Flow Rate FiO2 07/02/23 04:00 36.6 72 18 113/74 (87) 97 Room Air 07/01/23 23:29 36.5 67 18 109/71 (84) 96 Room Air 07/01/23 20:00 Room Air 07/01/23 19:55 37.2 70 20 117/77 (90) 95 Room Air 07/01/23 16:08 37.1 73 16 116/76 (89) 94 Room Air 07/01/23 11:47 36.4 62 16 111/71 (84) Room Air 07/01/23 08:00 Room Air 07/01/23 07:50 36.9 76 16 124/84 (97) 96 Room Air I & O 07/02/23 07:00 Intake Total 0 ml Output Total 3540 ml Balance -3540 ml Capillary Refill : Less Than 3 Seconds General Appearance: No Apparent Distress, Chronically ill, Obese HEENT: PERRL/EOMI, Normal ENT Inspection Neck: Full Range of Motion, Non Tender Respiratory: Chest Non Tender, No Accessory Muscle Use, No Respiratory Distress Cardiovascular: Regular Rate, Rhythm, No JVD Peripheral Pulses: 2+ Radial Pulses (R), 2+ Radial Pulses (L) Gastrointestinal: soft, tenderness (mild), other (ileostomy w/ light brown l iquid output, incision no signs of infection, serous fluid from bottom of incision) Extremity: Normal Inspection (bilateral AKA), Non Tender Neurologic/Psychiatric: Alert, Oriented x3 Skin: Normal Color, Warm/Dry Lymphatic: No Adenopathy Results Lab Laboratory Tests 07/01/23 14:00: Sodium Level 140, Potassium Level 4.3, Chloride Level 106, Carbon Dioxide Level 25, Anion Gap 9, Blood Urea Nitrogen 3L, Creatinine 0.63, Estimat Glomerular Filtration Rate 121, BUN/Creatinine Ratio 5, Glucose Level 106H, Calcium Level 8.1L, Corrected Calcium 9.2, Phosphorus Level 4.8H, Magnesium Level 1.9, Total Bilirubin 0.3, Aspartate Amino Transf (AST/SGOT) 10, Alanine Aminotransferase (ALT/SGPT) 7, Alkaline Phosphatase 79, Total Protein 5.4L, Albumin 2.6L, Triglycerides Level 65 07/01/23 18:36: Glucometer 106 07/01/23 23:33: Glucometer 134H 07/02/23 05:08: Sodium Level 137, Potassium Level 4.3, Chloride Level 105, Carbon Dioxide Level 25, Anion Gap 7, Blood Urea Nitrogen 5L, Creatinine 0.62, Estimat Glomerular Filtration Rate 122, BUN/Creatinine Ratio 8, Glucose Level 84, Calcium Level 8.0L, Corrected Calcium 9.1, Phosphorus Level 4.3, Magnesium Level 1.9, Total Bilirubin 0.3, Aspartate Amino Transf (AST/SGOT) 10, Alanine Aminotransferase (ALT/SGPT) 7, Alkaline Phosphatase 77, Total Protein 5.3L, Albumin 2.6L Microbiology 06/20/23 MRSA Screen - Final, Complete MRSA not isolated 06/20/23 Gram Stain - Final, Complete 06/20/23 Wound Culture - Final, Complete Mixed Bacterial [place] Pseudomonas aeruginosa Coryneform bacteria Staph, Coag Neg (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 Impression is that it could be SBO or profound post op ileus. Wound Care-ileostomy care/teaching Pain Control- oral pain control Picc line placement with nutrition, TPN Continue IS Encourage patient to use PT IRF evaluation ongoing NG tube to LIWS (62.5mL/hr) NPO Await better bowel function then advance diet Limit narcotic use urine out: 1.5mL/kg/hr ileostomy out: 10mL/hr CHASE FERNANDEZ DO 07/02/23 1125: Subjective Subjective/Events-last exam Feeling better. Refusing PT/OT. Reports more gas and liquid out ileostomy. TPN. Denies n/v fever sweats chills shortness of breath or chest pain at this time. Objective Exam General Appearance: No Apparent Distress, Chronically ill HEENT: PERRL/EOMI, Normal ENT Inspection Neck: Full Range of Motion, Non Tender Respiratory: Chest Non Tender, No Accessory Muscle Use, No Respiratory Distress Cardiovascular: Regular Rate, Rhythm, No JVD Gastrointestinal: soft, tenderness (mild), other (ileostomy w/ light brown liq uid output, incision no signs of infection, ) Extremity: Normal Inspection (bilateral AKA), Non Tender Neurologic/Psychiatric: Alert, Oriented x3 Skin: Normal Color, Warm/Dry Lymphatic: No Adenopathy Assessment/Plan Assessment/Plan Assessment/Plan 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 Impression is that it could be SBO or profound post op ileus. Wound Care-ileostomy care/teaching Pain Control- oral pain control Picc line placement with nutrition, TPN Continue IS Encourage patient to use PT IRF evaluation ongoing NG tube to LIWS NPO Await better bowel function then advance diet Limit narcotic use urine out: 1.5mL/kg/hr ileostomy out: 10mL/hr Supervisory-Addendum Brief Verification & Attestation Participated in pt care: history, MDM, physical Personally performed: exam, history, MDM, supervision of care Care discussed with: Medical Student Procedures: n/a Results interpretation: Verified all documentation Verification and Attestation of Medical Student E/M Service A medical student performed and documented this service in my presence. I reviewed and verified all information documented by the medical student and made modifications to such information, when appropriate. I personally performed the physical exam and medical decision making. Chase Fernandez, Jul 02, 2023,11:28 JOSE ALBERTO HUSTON Jul 02, 2023 07:25 CHASE FERNANDEZ DO Jul 02, 2023 11:25
[2023-07-02 07:32] VITALS: BP 115/74
[2023-07-02] MEDS: ONDANSETRON INJECTION 4 MG/2 ML (SDV) IV PRN ×3 (08:55→17:53)
[2023-07-02] MEDS: PANTOPRAZOLE INJECTION 40 MG VIAL IV SCH (08:58)
[2023-07-02] MEDS: NS IV 1000 ML 1,000 ML IV SCH ×2 (09:00→17:53)
--- NOTE | 2023-07-02 09:12 | Occupational Ther Daily Note ---
OT Current Status-Daily Note Subjective Patient agrees to bedside ADLs, does not want to sit EOB or move about, fear of pain, leaking wounds and hurting his incision. Education provided for importance of mobility. Mental Status/Objective Patient Orientation: Person, Place, Time, Situation Attachments: NG Tube ADL-Treatment Shampoo shower cap applied and patient performed scrubbing, warm wash clothe w/ suds set up for patient, completes only UB arms and chest top half of LEs portion and refuses any pressure to incision areas and ostomy bag areas. Therapy Code Descriptions/Definitions Functional [place] Measure: 0=Not Assessed/NA 4=Minimal Assistance 1=Total Assistance 5=Supervision or Setup 2=Maximal Assistance 6=Modified [place] 3=Moderate Assistance 7=Complete IndependenceSCALE: Activities may be completed with or without assistive devices. 9-Zpqqnoxenb-bpalixa completes the activity by him/herself with no assistance from a helper. 5-Set-up or Clean-up Assistance-helper sets up or cleans up; patient completes activity. [place] assists only prior to or following the activity. 4-Supervision or Touching Assistance-helper provides verbal cues and/or touching/steadying and/or contact guard assistance as patient completes activity. Assistance may be provided throughout the activity or intermittently. 3-Partial/Moderate Assistance-helper does LESS THAN HALF the effort. [place] lifts, holds or supports trunk or limbs, but provides less than half the effort. 2-Substantial/Maximal Assistance-helper does MORE THAN HALF the effort. [place] lifts or holds trunk or limbs and provides more than half the effort. 3-Feeixotdq-uhkznp does ALL the effort. Patient does none of the effort to complete the activity. Or, the assistance of 2 or more helpers is required for the patient to complete the activity. If activity was not attempted, code reason: 7-Patient Refused. 9-Not Applicable-not attempted and the patient did not perform the activity before the current illness, exacerbation or injury. 10-Not Attempted due to Environmental Limitations-(lack of equipment, weather restraints, etc.). 88-Not Attempted due to Medical Conditions or Safety Concerns. Bathing Location: L Arm, R Arm, L Upper Leg, R Upper Leg, Chest Shower/Bathe Self (QC): 3 (Bilateral AKA. patient declines rubi area cleansing w/ OT, wipes front of legs, Declines rolling and sitting in bed. Jerry reports he might sit up later today) Education OT Patient Education: Correct positioning, Exercise program, Modified ADL techniques, Progress toward Goal/Update tx plan, Purpose of tx/functional activities, Reviewed precautions, Rehab process, Safety issues, Other (offloading) Teaching Recipient: Patient Teaching Methods: Discussion Response to Teaching: Reinforcement Needed OT Windows Administrator Goals Intermediate Goals Time Frame: Jul 10, 2023 Eating (QC): 6 Oral Hygiene (QC): 6 Toileting Hygiene (QC): 6 Shower/Bathe Self (QC): 6 Upper Body Dressing (QC): 6 Lower Body Dressing (QC): 6 1=Demonstrate adherence to instructed precautions during ADL tasks. 2=Patient will verbalize/demonstrate understanding of assistive devices/modifications for ADL. 3=Patient will improve strength/tolerance for activity to enable patient to perform ADL's. OT Education/Plan Problem List/Assessment Assessment: Decreased Activ Tolerance, Decreased UE Strength, Impaired Bed Mobility, Impaired Self-Care Skills Discharge Recommendations Plan/Recommendations: Continue POC Treatment Plan/Plan of Care Treatment,Training & Education: Yes Patient would benefit from OT for education, treatment and training to promote independence in ADL's, mobility, safety and/or upper extremity function for ADL's. Plan of Care: ADL Retraining, Concurrent Therapy, Functional Mobility, Group Exercise/Act as Ind, UE Funct Exercise/Act Treatment Duration: Jul 10, 2023 Frequency: 3 times per week Estimated Hrs Per Day: .25 hour per day Agreement: Yes Rehab Potential: Guarded Remains in bed w/ laptop all needs met Time Start Time: 08:53 Stop Time: 09:14 DATE: Jul 02, 2023 Total Time Billed (hr/min): 21 Billed Treatment Time ADL 21 min ALONA JACOB OT Jul 02, 2023 09:12
[2023-07-02 10:00] VITALS: BP 115/74
[2023-07-02] MEDS: MICONAZOLE 2% POWDER 90 GM TOP SCH ×2 (11:34→20:30)
[2023-07-02] MEDS: ENOXAPARIN 40 MG/0.4 ML SYRINGE SC SCH (11:35)
[2023-07-02 11:45] VITALS: BP 123/76
--- NOTE | 2023-07-02 15:15 | Physical Therapy Daily Note ---
PT Daily Note-Current Subjective Pt found lying in bed upon entry. Agreed to PT. Reports that he is feeling okay. States that he would rather not move to the edge of bed due to various attachments. Reports pain at B hamstring regions due to pressure sores. Pain Section J - Health Conditions 1. Rarely or not at all 2. Occasionally 3. Frequently 4. Almost constantly 8. Unable to answer Pain Effect on Sleep: 4 Pain Interference with Therapy: 4 Pain Interference w/Day-to-Day: 4 Mental Status Patient Orientation: Person, Place Attachments: NG Tube, Colostomy/Ileostomy, IV Transfers SCALE: Activities may be completed with or without assistive devices. 0-Ogxdwfqbjg-aojvrtn completes the activity by him/herself with no assistance from a helper. 5-Set-up or Clean-up Assistance-helper sets up or cleans up; patient completes activity. [place] assists only prior to or following the activity. 4-Supervision or Touching Assistance-helper provides verbal cues and/or touching/steadying and/or contact guard assistance as patient completes activity. Assistance may be provided throughout the activity or intermittently. 3-Partial/Moderate Assistance-helper does LESS THAN HALF the effort. [place] lifts, holds or supports trunk or limbs, but provides less than half the effort. 2-Substantial/Maximal Assistance-helper does MORE THAN HALF the effort. [place] lifts or holds trunk or limbs and provides more than half the effort. 9-Hvrdgmwbq-svreye does ALL the effort. Patient does none of the effort to complete the activity. Or, the assistance of 2 or more helpers is required for the patient to complete the activity. If activity was not attempted, code reason: 7-Patient Refused. 9-Not Applicable-not attempted and the patient did not perform the activity before the current illness, exacerbation or injury. 10-Not Attempted due to Environmental Limitations-(lack of equipment, weather restraints, etc.). 88-Not Attempted due to Medical Conditions or Safety Concerns. Treatments Supine Therapeutic Exercises (B) x 10 ea: - SLRs - Hip abd/add - Hip ext (pushing into bed) - Glute sets Assessment Current Status: Fair Progress Pt displays decent muscle endurance and strength /c therapeutic exercises. No obvious signs of increased fatigue or shortness of breath. Continue to progress pt per POC. PT Surgical Nurse Practitioner Goals Surgical Nurse Practitioner Goals PT Skilled Nursing Goals Time Frame: Jul 05, 2023 Roll Left & Right (QC): 6 Sit to Lying (QC): 6 Lying-Sitting on Side/Bed(QC): 6 PT Plan Treatment/Plan Treatment Plan: Continue Plan of Care Treatment Plan: Bed Mobility, Education, Functional Activity [place], Functional Strength, Safety, Therapeutic Exercise, Transfers Treatment Duration: Jul 05, 2023 Frequency: 5 times per week Estimated Hrs Per Day: .25 hour per day Time Time In: 1419 Time Out: 1436 DATE: Jul 02, 2023 Total Billed Treatment Time: 17 Total Billed Treatment 1 visit EX x 1 GETACHEW SAL SCREW MACHINE TOOL SETTER Jul 02, 2023 15:15
[2023-07-02 16:01] VITALS: BP 108/73
[2023-07-02] MEDS ORDERED: SODIUM ACETATE IV SCH ×11 (17:00)
[2023-07-02] MEDS ORDERED: SODIUM CHLORIDE IV SCH ×11 (17:00)
[2023-07-02] MEDS ORDERED: [UNRECOGNIZED DRUG - OTHER] IV SCH ×11 (17:00)
[2023-07-02 20:08] VITALS: BP 117/77
[2023-07-03] VITALS: BP 120/70
[2023-07-03] MEDS: morphine INJ 4 MG/ML 1 ML (VIAL/SYRINGE) IV PRN ×3 (01:16→06:37)
[2023-07-03 04:00] VITALS: BP 114/70
[2023-07-03 05:15] LABS: HEMATOCRIT 39 % (40-54); HEMOGLOBIN 12.6 g/dL (13.3-17.7); MEAN CORPUSCULAR HEMOGLOBIN 30 pg (25-34); MEAN CORPUSCULAR HGB CONC 33 g/dL (32-36); MEAN CORPUSCULAR VOLUME 91 fL (80-99); MEAN PLATELET VOLUME 8.8 fL (9.0-12.2); PLATELET COUNT 414 10^3/uL (130-400); WHITE BLOOD COUNT 5.6 10^3/uL (4.3-11.0)
[2023-07-03 05:41] LABS: ALBUMIN 2.8 GM/DL (3.2-4.5); BILIRUBIN,TOTAL 0.3 MG/DL (0.1-1.0); CALCIUM 8.1 MG/DL (8.5-10.1); CREATININE SERUM 0.64 MG/DL (0.60-1.30); PHOSPHORUS 3.7 MG/DL (2.3-4.7); POTASSIUM 4.5 MMOL/L (3.6-5.0); TOTAL PROTEIN 5.7 GM/DL (6.4-8.2)
[2023-07-03] MEDS: POTASSIUM BICARB 20 MEQ effervescent TABLET PO SCH (05:45)
[2023-07-03] MEDS: MAGNESIUM 1 GM/100 ML IVPB 100 ML IV SCH (05:45)
[2023-07-03] MEDS: POTASSIUM CL 10MEQ/50ML IVPB 50 ML IV SCH (05:45)
[2023-07-03] MEDS: POTASSIUM CHLORIDE 20 MEQ TABLET PO SCH (05:46)
--- NOTE | 2023-07-03 07:08 | Progress Note - Surgery ---
JOSE ALBERTO HUSTON 07/03/23 0708: Subjective Date Seen by a Provider: Jul 03, 2023 Time Seen by a Provider: 06:15 Subjective/Events-last exam No new complaints. still with pain on movement. no nausea or emesis. gas and 1300ml/8hr in ileostomy. abd is soft and nondistended. No volume from NG tube. Review of Systems General: No Chills, No Night Sweats HEENT: No Head Aches, No Visual Changes Pulmonary: No Dyspnea Cardiovascular: No: Chest Pain, Edema Gastrointestinal: Abdominal Pain (only noted with movement); No: Nausea, Vomiting Genitourinary: No Dysuria, No Frequency Musculoskeletal: No: shoulder pain, back pain Neurological: No: Weakness, Numbness Objective Exam Vital Signs Date Time Temp Pulse Resp B/P (MAP) Pulse Ox O2 Delivery O2 Flow Rate FiO2 07/03/23 04:00 36.2 68 18 114/70 (85) 97 Room Air 07/03/23 00:00 36.6 70 18 120/70 (87) 97 Room Air 07/02/23 20:08 36.6 62 18 117/77 (90) 96 Room Air 07/02/23 20:00 95 Room Air 07/02/23 16:01 36.6 71 18 108/73 (85) 96 Room Air 07/02/23 11:45 36.5 68 16 123/76 (92) Room Air 07/02/23 10:00 36.3 67 97 21 07/02/23 08:40 97 Room Air 0.00 07/02/23 07:47 95 Room Air 07/02/23 07:32 36.3 69 16 115/74 (88) 95 I & O 07/03/23 07:00 Intake Total 0 ml Output Total 4200 ml Balance -4200 ml Capillary Refill : Less Than 3 Seconds General Appearance: No Apparent Distress, Chronically ill, Obese HEENT: PERRL/EOMI, Normal ENT Inspection Neck: Full Range of Motion, Non Tender Respiratory: Chest Non Tender, No Accessory Muscle Use, No Respiratory Distress Cardiovascular: Regular Rate, Rhythm, No JVD Peripheral Pulses: 2+ Radial Pulses (R), 2+ Radial Pulses (L) Gastrointestinal: soft, tenderness (mild with movement), other (ileostomy w/ light brown liquid output, incision no signs of infection) Extremity: Normal Inspection (bilateral AKA), Non Tender Neurologic/Psychiatric: Alert, Oriented x3, Normal Mood/Affect Skin: Normal Color, Warm/Dry Lymphatic: No Adenopathy Results Lab Laboratory Tests 07/02/23 14:38: Glucometer 97 07/02/23 17:31: Glucometer 89 07/03/23 01:12: Glucometer 101 07/03/23 05:07: White Blood Count 5.6, Red Blood Count 4.27L, Hemoglobin 12.6L, Hematocrit 39L, Mean Corpuscular Volume 91, Mean Corpuscular Hemoglobin 30, Mean Corpuscular Hemoglobin Concent 33, Red Cell Distribution Width 16.2H, Platelet Count 414H, Mean Platelet Volume 8.8L, Sodium Level 136, Potassium Level 4.5, Chloride Level 102, Carbon Dioxide Level 26, Anion Gap 8, Blood Urea Nitrogen 7, Creatinine 0.64, Estimat Glomerular Filtration Rate 120, BUN/Creatinine Ratio 11, Glucose Level 83, Calcium Level 8.1L, Corrected Calcium 9.1, Phosphorus Level 3.7, Magnesium Level 2.0, Total Bilirubin 0.3, Aspartate Amino Transf (AST/SGOT) 13, Alanine Aminotransferase (ALT/SGPT) 8, Alkaline Phosphatase 79, Total Protein 5.7L, Albumin 2.8L Microbiology 06/20/23 MRSA Screen - Final, Complete MRSA not isolated 06/20/23 Gram Stain - Final, Complete 06/20/23 Wound Culture - Final, Complete Mixed Bacterial [place] Pseudomonas aeruginosa Coryneform bacteria Staph, Coag Neg (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 Impression is that it could be SBO or profound post op ileus. Wound Care-ileostomy care/teaching Pain Control- oral pain control Picc line placement with nutrition, TPN Continue IS Encourage patient to use PT IRF evaluation ongoing Pull NG tube Advance to clears Limit narcotic use ileostomy out: 1300ml/8hr CHASE FERNANDEZ DO 07/04/23 1402: Subjective Subjective/Events-last exam No new complaints. Having better output from ileostomy. Pain controlled. Nausea improved. Denies fever sweats chills shortness of breath or chest pain. Objective Exam General Appearance: No Apparent Distress, Chronically ill HEENT: PERRL/EOMI, Normal ENT Inspection Neck: Full Range of Motion, Non Tender Respiratory: Chest Non Tender, No Accessory Muscle Use, No Respiratory Distress Cardiovascular: Regular Rate, Rhythm, No JVD Gastrointestinal: soft, tenderness (mild with movement), other (ileostomy w/ light brown liquid output, incision no signs of infection) Extremity: Normal Inspection (bilateral AKA), Non Tender Neurologic/Psychiatric: Alert, Oriented x3 Skin: Normal Color, Warm/Dry Lymphatic: No Adenopathy Assessment/Plan Assessment/Plan Assessment/Plan 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 Impression is that it could be SBO or profound post op ileus. Wound Care-ileostomy care/teaching Pain Control- oral pain control Picc line placement with nutrition, TPN Continue IS Encourage patient to use PT IRF evaluation ongoing Pull NG tube Starting to have better bowel function will start sips of clears Limit narcotic use Supervisory-Addendum Brief Verification & Attestation Participated in pt care: history, MDM, physical Personally performed: exam, history, MDM, supervision of care Care discussed with: Medical Student Procedures: n/a Results interpretation: Verified all documentation Verification and Attestation of Medical Student E/M Service A medical student performed and documented this service in my presence. I reviewed and verified all information documented by the medical student and made modifications to such information, when appropriate. I personally performed the physical exam and medical decision making. Chase Fernandez, Jul 03, 2023,07:01 JOSE ALBERTO HUSTON Jul 03, 2023 07:08 CHASE FERNANDEZ DO Jul 04, 2023 14:02
[2023-07-03 07:47] VITALS: BP 108/72
[2023-07-03] MEDS: HYDROcodone/ACETAMINOPHEN 5 MG/325 MG TABLET PO PRN ×3 (08:49→20:39)
[2023-07-03] MEDS: PANTOPRAZOLE INJECTION 40 MG VIAL IV SCH (08:49)
[2023-07-03] MEDS: MICONAZOLE 2% POWDER 90 GM TOP SCH ×2 (08:51→20:39)
--- NOTE | 2023-07-03 11:46 | Physical Therapy Daily Note ---
PT Daily Note-Current Subjective Patient agrees to therapy. Pain Section J - Health Conditions 1. Rarely or not at all 2. Occasionally 3. Frequently 4. Almost constantly 8. Unable to answer Pain Effect on Sleep: 1 Pain Interference with Therapy: 1 Pain Interference w/Day-to-Day: 1 Mental Status Patient Orientation: Normal For Age Attachments: Central Line, IV Transfers SCALE: Activities may be completed with or without assistive devices. 2-Xbwupnqkbw-qqxyepv completes the activity by him/herself with no assistance from a helper. 5-Set-up or Clean-up Assistance-helper sets up or cleans up; patient completes activity. [place] assists only prior to or following the activity. 4-Supervision or Touching Assistance-helper provides verbal cues and/or touching/steadying and/or contact guard assistance as patient completes activity. Assistance may be provided throughout the activity or intermittently. 3-Partial/Moderate Assistance-helper does LESS THAN HALF the effort. [place] lifts, holds or supports trunk or limbs, but provides less than half the effort. 2-Substantial/Maximal Assistance-helper does MORE THAN HALF the effort. [place] lifts or holds trunk or limbs and provides more than half the effort. 3-Vvewltxaz-iyjkvs does ALL the effort. Patient does none of the effort to complete the activity. Or, the assistance of 2 or more helpers is required for the patient to complete the activity. If activity was not attempted, code reason: 7-Patient Refused. 9-Not Applicable-not attempted and the patient did not perform the activity before the current illness, exacerbation or injury. 10-Not Attempted due to Environmental Limitations-(lack of equipment, weather restraints, etc.). 88-Not Attempted due to Medical Conditions or Safety Concerns. Roll Left & Right (QC): 6 Sit to Lying (QC): 6 Lying to Sitting/Side of Bed(Q: 6 Assessment Patient performed bed mobility independently for bed change. Patient requires time to complete all functional tasks. PT Prison Goals [place] Goals PT Prison Goals Time Frame: Jul 05, 2023 Roll Left & Right (QC): 6 Sit to Lying (QC): 6 Lying-Sitting on Side/Bed(QC): 6 PT Plan Treatment/Plan Treatment Plan: Continue Plan of Care Treatment Plan: Bed Mobility, Education, Functional Activity [place], Functional Strength, Safety, Therapeutic Exercise, Transfers Treatment Duration: Jul 05, 2023 Frequency: 5 times per week Estimated Hrs Per Day: .25 hour per day Time Time In: 1120 Time Out: 1137 DATE: Jul 03, 2023 Total Billed Treatment Time: 17 Total Billed Treatment 1 visit FA 17 min PRIYANK RAMIREZ PT Jul 03, 2023 11:46
--- NOTE | 2023-07-03 11:56 | Occupational Ther Daily Note ---
OT Current Status-Daily Note Subjective More alert, wounds and odor improving Mental Status/Objective Patient Orientation: Person, Place Attachments: Colostomy/Ileostomy ADL-Treatment Fearful of rolling, declines transfers, UE strength WFLS to roll, pull up in bed and perform ADLs Therapy Code Descriptions/Definitions Functional [place] Measure: 0=Not Assessed/NA 4=Minimal Assistance 1=Total Assistance 5=Supervision or Setup 2=Maximal Assistance 6=Modified [place] 3=Moderate Assistance 7=Complete IndependenceSCALE: Activities may be completed with or without assistive devices. 3-Hllaggmydk-gyupbux completes the activity by him/herself with no assistance from a helper. 5-Set-up or Clean-up Assistance-helper sets up or cleans up; patient completes activity. [place] assists only prior to or following the activity. 4-Supervision or Touching Assistance-helper provides verbal cues and/or touching/steadying and/or contact guard assistance as patient completes activity. Assistance may be provided throughout the activity or intermittently. 3-Partial/Moderate Assistance-helper does LESS THAN HALF the effort. [place] lifts, holds or supports trunk or limbs, but provides less than half the effort. 2-Substantial/Maximal Assistance-helper does MORE THAN HALF the effort. [place] lifts or holds trunk or limbs and provides more than half the effort. 1-Iewyyjlva-fslfpf does ALL the effort. Patient does none of the effort to com plete the activity. Or, the assistance of 2 or more helpers is required for the patient to complete the activity. If activity was not attempted, code reason: 7-Patient Refused. 9-Not Applicable-not attempted and the patient did not perform the activity before the current illness, exacerbation or injury. 10-Not Attempted due to Environmental Limitations-(lack of equipment, weather restraints, etc.). 88-Not Attempted due to Medical Conditions or Safety Concerns. Eating (QC): 5 Oral Hygiene (QC): 5 Shower/Bathe Self (QC): 7 (recommended) Upper Body Dressing (QC): 4 Toileting Hygiene (QC): 3 Toilet Transfer (QC): 1 Linens changed d/t BM incont in linens, Education OT Patient Education: Correct positioning, Exercise program, Modified ADL techniques, Progress toward Goal/Update tx plan, Purpose of tx/functional activities, Reviewed precautions, Rehab process, Safety issues, Transfer techniques Teaching Recipient: Patient Teaching Methods: Demonstration, Discussion Response to Teaching: Verbalize Understanding, Reinforcement Needed OT Nursery Technician Goals Nursery Technician Goals Time Frame: Jul 10, 2023 Eating (QC): 6 Oral Hygiene (QC): 6 Toileting Hygiene (QC): 6 Shower/Bathe Self (QC): 6 Upper Body Dressing (QC): 6 Lower Body Dressing (QC): 6 1=Demonstrate adherence to instructed precautions during ADL tasks. 2=Patient will verbalize/demonstrate understanding of assistive devices/modifications for ADL. 3=Patient will improve strength/tolerance for activity to enable patient to perform ADL's. OT Education/Plan Problem List/Assessment Assessment: Decreased Activ Tolerance, Decreased UE Strength, Impaired Bed Mobility, Impaired Self-Care Skills Discharge Recommendations Plan/Recommendations: Continue POC Treatment Plan/Plan of Care Treatment,Training & Education: Yes Patient would benefit from OT for education, treatment and training to promote independence in ADL's, mobility, safety and/or upper extremity function for ADL's. Plan of Care: ADL Retraining, Concurrent Therapy, Functional Mobility, Group Exercise/Act as Ind, UE Funct Exercise/Act Treatment Duration: Jul 10, 2023 Frequency: 3 times per week Estimated Hrs Per Day: .25 hour per day Agreement: Yes Rehab Potential: Guarded Time Start Time: 11:35 Stop Time: 11:53 DATE: Jul 03, 2023 Total Time Billed (hr/min): 16 Billed Treatment Time ADL 17 min ALONA JACOB OT Jul 03, 2023 11:56
[2023-07-03] MEDS: ENOXAPARIN 40 MG/0.4 ML SYRINGE SC SCH (11:58)
[2023-07-03] MEDS: NS IV 1000 ML 1,000 ML IV SCH ×2 (11:58→16:12)
[2023-07-03 15:30] VITALS: BP 107/67
[2023-07-03] MEDS ORDERED: SODIUM CHLORIDE IV SCH ×11 (17:00)
[2023-07-03] MEDS ORDERED: [UNRECOGNIZED DRUG - OTHER] IV SCH ×11 (17:00)
[2023-07-03] MEDS ORDERED: SODIUM ACETATE IV SCH ×11 (17:00)
[2023-07-03 19:10] VITALS: BP 134/94
[2023-07-03] MEDS: ONDANSETRON INJECTION 4 MG/2 ML (SDV) IV PRN (21:14)
[2023-07-03] MEDS: RT-ALBUTEROL SULF 2.5 MG/3 ML PRE-MIX VIAL INH PRN (22:12)
[2023-07-04] VITALS: BP 106/68
[2023-07-04] MEDS: HYDROcodone/ACETAMINOPHEN 5 MG/325 MG TABLET PO PRN ×5 (00:59→22:50)
[2023-07-04] MEDS: POTASSIUM CHLORIDE 20 MEQ TABLET PO SCH (06:04)
[2023-07-04] MEDS: POTASSIUM BICARB 20 MEQ effervescent TABLET PO SCH (06:04)
[2023-07-04 06:05] LABS: CALCIUM 8.3 MG/DL (8.5-10.1)
[2023-07-04 06:07] LABS: TOTAL PROTEIN 6.1 GM/DL (6.4-8.2)
[2023-07-04 06:08] LABS: BILIRUBIN,TOTAL 0.2 MG/DL (0.1-1.0)
[2023-07-04] MEDS: POTASSIUM CL 10MEQ/50ML IVPB 50 ML IV SCH (06:08)
[2023-07-04 06:10] LABS: CREATININE SERUM 0.59 MG/DL (0.60-1.30); PHOSPHORUS 3.8 MG/DL (2.3-4.7)
[2023-07-04 06:14] LABS: MAGNESIUM 1.8 MG/DL (1.6-2.4)
[2023-07-04] MEDS: MAGNESIUM 1 GM/100 ML IVPB 100 ML IV SCH ×3 (06:16→09:08)
--- NOTE | 2023-07-04 07:14 | Progress Note - Surgery ---
PATEL PETERSON 07/04/23 0714: Subjective Date Seen by a Provider: Jul 04, 2023 Time Seen by a Provider: 07:03 Subjective/Events-last exam Pt is a 43 male s/p subtotal colectomy with end ileostomy. Reports that he continues to do well with a lot of output into his ileostomy (1550 mL over 8 hrs). He states that he passes gas frequently into his ileostomy as well. Denies nausea or vomiting. Currently on a clear diet which he is tolerating well and has a picc line in place with tpn. Focused Exam Sepsis Stage: Ruled Out Respiratory: No Accessory Muscle Use, No Respiratory Distress Cardiovascular: Regular Rate, Rhythm, Normal Peripheral Pulses Peripheral Pulses: 2+ Radial Pulses (R), 2+ Radial Pulses (L) Skin: normal color, warm/dry Objective Exam Vital Signs Date Time Temp Pulse Resp B/P (MAP) Pulse Ox O2 Delivery O2 Flow Rate FiO2 07/04/23 00:00 37.1 97 18 106/68 (81) 96 Room Air 07/03/23 22:13 Room Air 07/03/23 20:46 98 Room Air 07/03/23 19:10 36.5 80 18 134/94 (107) 98 Room Air 07/03/23 15:30 36.6 68 18 107/67 (80) 100 Room Air 07/03/23 12:00 36.1 78 16 99 07/03/23 08:00 Room Air 07/03/23 07:47 35.8 60 16 108/72 (84) Room Air I & O 07/04/23 07:00 Intake Total 3813.6667 ml Output Total 5000 ml Balance -1186.3333 ml Capillary Refill : Less Than 3 Seconds General Appearance: No Apparent Distress, Chronically ill, Obese HEENT: PERRL/EOMI, Normal ENT Inspection Neck: Full Range of Motion, Non Tender Respiratory: Chest Non Tender, No Accessory Muscle Use, No Respiratory Distress Cardiovascular: Regular Rate, Rhythm, No JVD Peripheral Pulses: 2+ Radial Pulses (R), 2+ Radial Pulses (L) Gastrointestinal: soft, tenderness (mild with movement), other (ileostomy w/ light brown liquid output, incision no signs of infection) Extremity: Normal Inspection (bilateral AKA), Non Tender Neurologic/Psychiatric: Alert, Oriented x3, Normal Mood/Affect Skin: Normal Color, Warm/Dry Lymphatic: No Adenopathy Results Lab Laboratory Tests 07/03/23 11:23: Glucometer 113H 07/03/23 17:51: Glucometer 112H 07/03/23 23:59: Glucometer 131H 07/04/23 05:10: Sodium Level 134L, Potassium Level 4.0, Chloride Level 102, Carbon Dioxide Level 23, Anion Gap 9, Blood Urea Nitrogen 14, Creatinine 0.59L, Estimat Glomerular Filtration Rate 123, BUN/Creatinine Ratio 24, Glucose Level 88, Calcium Level 8.3L, Corrected Calcium 9.1, Phosphorus Level 3.8, Magnesium Level 1.8, Total Bilirubin 0.2, Aspartate Amino Transf (AST/SGOT) 14, Alanine Aminotransferase (ALT/SGPT) 8, Alkaline Phosphatase 82, Total Protein 6.1L, Albumin 3.0L Microbiology 06/20/23 MRSA Screen - Final, Complete MRSA not isolated 06/20/23 Gram Stain - Final, Complete 06/20/23 Wound Culture - Final, Complete Mixed Bacterial [place] Pseudomonas aeruginosa Coryneform bacteria Staph, Coag Neg (CONSTRUCTION MATERIALS TESTER) Assessment/Plan Assessment/Plan Assessment/Plan 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 Impression is that it could be SBO or profound post op ileus. Wound Care-ileostomy care/teaching Pain Control- oral pain control Picc line placement with nutrition, TPN. Consider removing if he continues to tolerate clears well. Continue IS Encourage patient to use PT IRF evaluation ongoing Limit narcotic use CHASE FERNANDEZ DO 07/04/23 1405: Subjective Subjective/Events-last exam Still with ileostomy output. Tolerating clears. Pain controlled. On TPN Denies n/v fever sweats chills shortness of breath or chest pain. Objective Exam General Appearance: No Apparent Distress, Chronically ill HEENT: PERRL/EOMI, Normal ENT Inspection Neck: Full Range of Motion, Non Tender Respiratory: Chest Non Tender, No Accessory Muscle Use, No Respiratory Distress Cardiovascular: Regular Rate, Rhythm, No JVD Gastrointestinal: soft, tenderness (minimal), other (ileostomy w/ light brown liquid output, incision no signs of infection) Extremity: Normal Inspection (bilateral AKA), Non Tender Neurologic/Psychiatric: Alert, Oriented x3 Skin: Normal Color, Warm/Dry Lymphatic: No Adenopathy Assessment/Plan Assessment/Plan Assessment/Plan 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 Impression is that it could be SBO or profound post op ileus. Wound Care-ileostomy care/teaching Pain Control- oral pain control Picc line placement with nutrition, TPN. Consider removing if he continues to tolerate clears well and can advance diet, currently not getting enough nutrition. Continue IS Encourage patient to use PT IRF evaluation ongoing Limit narcotic use Supervisory-Addendum Brief Verification & Attestation Participated in pt care: history, MDM, physical Personally performed: exam, history, MDM, supervision of care Care discussed with: Medical Student Procedures: n/a Results interpretation: Verified all documentation Verification and Attestation of Medical Student E/M Service A medical student performed and documented this service in my presence. I reviewed and verified all information documented by the medical student and made modifications to such information, when appropriate. I personally performed the physical exam and medical decision making. Chase Fernandez, Jul 04, 2023,14:05 PATEL PETERSON Jul 04, 2023 07:14 CHASE FERNANDEZ DO Jul 04, 2023 14:05
[2023-07-04 07:37] VITALS: BP 105/72
[2023-07-04] MEDS: PANTOPRAZOLE INJECTION 40 MG VIAL IV SCH (09:07)
[2023-07-04] MEDS: MICONAZOLE 2% POWDER 90 GM TOP SCH ×2 (09:10→21:06)
[2023-07-04] MEDS: ONDANSETRON INJECTION 4 MG/2 ML (SDV) IV PRN (10:11)
--- NOTE | 2023-07-04 10:42 | Physical Therapy Daily Note ---
PT Daily Note-Current Subjective Patient agrees to therapy. c/o gas pain Pain Section J - Health Conditions 1. Rarely or not at all 2. Occasionally 3. Frequently 4. Almost constantly 8. Unable to answer Pain Effect on Sleep: 1 Pain Interference with Therapy: 1 Pain Interference w/Day-to-Day: 1 Mental Status Attachments: Central Line Transfers SCALE: Activities may be completed with or without assistive devices. 5-Nerdxlfojz-hfowbgy completes the activity by him/herself with no assistance from a helper. 5-Set-up or Clean-up Assistance-helper sets up or cleans up; patient completes activity. [place] assists only prior to or following the activity. 4-Supervision or Touching Assistance-helper provides verbal cues and/or touching/steadying and/or contact guard assistance as patient completes activity. Assistance may be provided throughout the activity or intermittently. 3-Partial/Moderate Assistance-helper does LESS THAN HALF the effort. [place] lifts, holds or supports trunk or limbs, but provides less than half the effort. 2-Substantial/Maximal Assistance-helper does MORE THAN HALF the effort. [place] lifts or holds trunk or limbs and provides more than half the effort. 7-Mivbpktbo-uezpki does ALL the effort. Patient does none of the effort to complete the activity. Or, the assistance of 2 or more helpers is required for the patient to complete the activity. If activity was not attempted, code reason: 7-Patient Refused. 9-Not Applicable-not attempted and the patient did not perform the activity before the current illness, exacerbation or injury. 10-Not Attempted due to Environmental Limitations-(lack of equipment, weather restraints, etc.). 88-Not Attempted due to Medical Conditions or Safety Concerns. Sit to Lying (QC): 6 Lying to Sitting/Side of Bed(Q: 6 Treatments Scooting exercises to HOB and to foot rail independent with multiple recovery periods due to abdominal discomfort. Assessment Patient tolerated exercise and repositioned self in bed. Patient demonstrates good bilateral UE strength with mobility. PT Electrical Technician Goals Mcfp Goals PT Mcfp Goals Time Frame: Jul 12, 2023 Roll Left & Right (QC): 6 Sit to Lying (QC): 6 Lying-Sitting on Side/Bed(QC): 6 PT Plan Treatment/Plan Treatment Plan: Continue Plan of Care Treatment Plan: Bed Mobility, Education, Functional Activity [place], Functional Strength, Safety, Therapeutic Exercise, Transfers Treatment Duration: Jul 12, 2023 Frequency: 5 times per week Estimated Hrs Per Day: .25 hour per day Time Time In: 955 Time Out: 1010 DATE: Jul 04, 2023 Total Billed Treatment Time: 15 Total Billed Treatment 1 visit EX 15 min PRIYANK RAMIREZ PT Jul 04, 2023 10:42
--- NOTE | 2023-07-04 10:56 | Occupational Ther Daily Note ---
OT Current Status-Daily Note Subjective Very cautious of movement d/t fear of leaking ostomy bag, Verbal instruction reinforced to release gases in bag and movement is necessary Mental Status/Objective Patient Orientation: Person, Place, Time, Situation Attachments: IV ADL-Treatment Remains n hospital gown, declined shower and sponge bathe. No available change of garments Therapy Code Descriptions/Definitions Functional [place] Measure: 0=Not Assessed/NA 4=Minimal Assistance 1=Total Assistance 5=Supervision or Setup 2=Maximal Assistance 6=Modified [place] 3=Moderate Assistance 7=Complete IndependenceSCALE: Activities may be completed with or without assistive devices. 8-Lneevggflc-bbcuajd completes the activity by him/herself with no assistance from a helper. 5-Set-up or Clean-up Assistance-helper sets up or cleans up; patient completes activity. [place] assists only prior to or following the activity. 4-Supervision or Touching Assistance-helper provides verbal cues and/or touching/steadying and/or contact guard assistance as patient completes activity. Assistance may be provided throughout the activity or intermittently. 3-Partial/Moderate Assistance-helper does LESS THAN HALF the effort. [place] lifts, holds or supports trunk or limbs, but provides less than half the effort. 2-Substantial/Maximal Assistance-helper does MORE THAN HALF the effort. [place] lifts or holds trunk or limbs and provides more than half the effort. 4-Azwsmgccp-kybasq does ALL the effort. Patient does none of the effort to complete the activity. Or, the assistance of 2 or more helpers is required for the patient to complete the activity. If activity was not attempted, code reason: 7-Patient Refused. 9-Not Applicable-not attempted and the patient did not perform the activity before the current illness, exacerbation or injury. 10-Not Attempted due to Environmental Limitations-(lack of equipment, weather restraints, etc.). 88-Not Attempted due to Medical Conditions or Safety Concerns. Other Treatment Performs EOB sitting, depression transfers to B, [facility], no use of bedrails for mobility, scoot self in bed independently. Voices several complaints about the bag, the bed an dthe lines Education OT Patient Education: Correct positioning, Exercise program, Modified ADL techniques, Progress toward Goal/Update tx plan, Purpose of tx/functional activities, Reviewed precautions, Rehab process, Safety issues, Transfer techniques, Use of adapted equipment Teaching Recipient: Patient Response to Teaching: Verbalize Understanding, Return Demonstration OT Care Home Goals Wheel Press Operator Goals Time Frame: Jul 10, 2023 Eating (QC): 6 Oral Hygiene (QC): 6 Toileting Hygiene (QC): 6 Shower/Bathe Self (QC): 6 Upper Body Dressing (QC): 6 Lower Body Dressing (QC): 6 1=Demonstrate adherence to instructed precautions during ADL tasks. 2=Patient will verbalize/demonstrate understanding of assistive devices/modifications for ADL. 3=Patient will improve strength/tolerance for activity to enable patient to perform ADL's. OT Education/Plan Problem List/Assessment Assessment: Decreased Activ Tolerance, Decreased UE Strength, Impaired Self- Care Skills Discharge Recommendations Plan/Recommendations: Continue POC Treatment Plan/Plan of Care Treatment,Training & Education: Yes Patient would benefit from OT for education, treatment and training to promote independence in ADL's, mobility, safety and/or upper extremity function for ADL's. Plan of Care: ADL Retraining, Concurrent Therapy, Functional Mobility, Group Exercise/Act as Ind, UE Funct Exercise/Act Treatment Duration: Jul 10, 2023 Frequency: 3 times per week Estimated Hrs Per Day: .25 hour per day Agreement: Yes Rehab Potential: Guarded Time Start Time: 09:55 Stop Time: 10:05 DATE: Jul 04, 2023 Total Time Billed (hr/min): 10 Billed Treatment Time EX 10 min ALONA JACOB OT Jul 04, 2023 10:56
--- NOTE | 2023-07-04 14:48 | Discharge Inst-Simple/Standard ---
Discharge Inst-Standard Patient Instructions/Follow Up Plan of Care/Instructions/FU: LTAC Rebecca-2 weeks. Activity as Tolerated: No Discharge Diet: Liquid Diet Other Inst to Patient Follow up Appt: Make appointment for 2 week. Instructions: No lifting greater than 10 pounds. No strenuous activity. May shower, no tub bath or soaking. Use incentive spirometer at home as directed. No Smoking Skin/Wound Care: Keep wounds clean and dry. Ieostomy care as instructed. Symptoms to Report: Appetite Changes, Extremity Discoloration, Numbness/Tingling, Swelling Increased, Bleeding Excessive, Eyesight Changes, Pain Increased, Urine Color Change, Constipation(Persistent), Fever over 101 degree F, Pain/Pressure in chest, Urinating Difficulty, Cough Up/Vomit Blood, Heart Beat Irreg/Pounding, Pain/Pressure in jaw, Vaginal Bleeding Increase, Cramps in feet or legs, Lightheadedness, Pain/Pressure in shoulder, Diarrhea(Persistent), Memory Changes Suddenly, Questions/Concerns, Weight gain consecutive days, Dizziness/Fainting, Nausea/Vomiting, Shortness of Breath, Weight gain over 2 pounds If questions or concerns contact your physician Or seek help at emergency department. CHASE GONZALEZ DO Jul 04, 2023 14:48
[2023-07-04 16:15] VITALS: BP 115/74
[2023-07-04] MEDS: ENOXAPARIN 40 MG/0.4 ML SYRINGE SC SCH (16:17)
[2023-07-04] MEDS: NS IV 1000 ML 1,000 ML IV SCH (17:35)
[2023-07-04] MEDS: [UNRECOGNIZED DRUG - OTHER] IV SCH ×11 (17:36)
[2023-07-04] MEDS: SODIUM ACETATE IV SCH ×11 (17:36)
[2023-07-04] MEDS: SODIUM CHLORIDE IV SCH ×11 (17:36)
[2023-07-04 23:49] VITALS: BP 109/62
[2023-07-05] MEDS: HYDROcodone/ACETAMINOPHEN 5 MG/325 MG TABLET PO PRN ×4 (04:34→20:05)
[2023-07-05 05:50] LABS: CALCIUM 8.2 MG/DL (8.5-10.1); CREATININE SERUM 0.63 MG/DL (0.60-1.30); MAGNESIUM 1.8 MG/DL (1.6-2.4); POTASSIUM 4.2 MMOL/L (3.6-5.0)
[2023-07-05] MEDS: POTASSIUM CHLORIDE 20 MEQ TABLET PO SCH (05:51)
[2023-07-05] MEDS: POTASSIUM CL 10MEQ/50ML IVPB 50 ML IV SCH (05:51)
[2023-07-05] MEDS: POTASSIUM BICARB 20 MEQ effervescent TABLET PO SCH (05:51)
[2023-07-05] MEDS: MAGNESIUM 1 GM/100 ML IVPB 100 ML IV SCH ×3 (05:52→08:12)
[2023-07-05 07:35] VITALS: BP 111/72
[2023-07-05] MEDS: MICONAZOLE 2% POWDER 90 GM TOP SCH ×2 (09:30→20:05)
[2023-07-05] MEDS: PANTOPRAZOLE INJECTION 40 MG VIAL IV SCH (09:30)
[2023-07-05] MEDS: ENOXAPARIN 40 MG/0.4 ML SYRINGE SC SCH (11:07)
[2023-07-05 16:04] VITALS: BP 109/60
[2023-07-05] MEDS: [UNRECOGNIZED DRUG - OTHER] IV SCH ×11 (17:12)
[2023-07-05] MEDS: NS IV 1000 ML 1,000 ML IV SCH (17:12)
[2023-07-05] MEDS: SODIUM ACETATE IV SCH ×11 (17:12)
[2023-07-05] MEDS: SODIUM CHLORIDE IV SCH ×11 (17:12)
[2023-07-05 23:32] VITALS: BP 101/64
[2023-07-06] MEDS: HYDROcodone/ACETAMINOPHEN 5 MG/325 MG TABLET PO PRN ×2 (00:44→05:08)
[2023-07-06 06:01] LABS: CALCIUM 7.7 MG/DL (8.5-10.1); CREATININE SERUM 0.51 MG/DL (0.60-1.30); MAGNESIUM 1.6 MG/DL (1.6-2.4); POTASSIUM 3.7 MMOL/L (3.6-5.0)
[2023-07-06] MEDS: POTASSIUM BICARB 20 MEQ effervescent TABLET PO SCH (06:09)
[2023-07-06] MEDS: POTASSIUM CHLORIDE 20 MEQ TABLET PO SCH (06:09)
[2023-07-06] MEDS: MAGNESIUM 1 GM/100 ML IVPB 100 ML IV SCH ×5 (06:10→10:12)
[2023-07-06] MEDS: POTASSIUM CL 10MEQ/50ML IVPB 50 ML IV SCH (06:10)
[2023-07-06 07:35] VITALS: BP 113/69
[2023-07-06] MEDS: PANTOPRAZOLE INJECTION 40 MG VIAL IV SCH (07:58)
[2023-07-06] MEDS: MICONAZOLE 2% POWDER 90 GM TOP SCH (07:58)
[2023-07-06] MEDS ORDERED: POTASSIUM BICARB 20 MEQ effervescent TABLET PO ONE (08:00)
[2023-07-06 11:34] VITALS: BP 113/69
== END 2023-07-06 11:20 | DRG 330 ==
LOC: EDUNIT# 02:31 → ER 02:32 → 4TH 06:34 → OBSVTOIN 07:04 → 4TH 06-21 07:43
PROVIDERS: ADMIT Surgery; ATTEND Surgery
PROC: 0D1B0Z4 Bypass Ileum to Cutaneous, Open Approach (ICD-10-PCS; 2023-06-20)
PROC: 0DTE0ZZ Resection of Large Intestine, Open Approach (ICD-10-PCS; principal; 2023-06-20 13:21)
DX: K59.81 Ogilvie syndrome (principal); K56.7 Ileus, unspecified; E87.6 Hypokalemia; Z89.612 Acquired absence of left leg above knee; Z89.611 Acquired absence of right leg above knee; Z86.718 Personal history of other venous thrombosis and embolism; I73.9 Peripheral vascular disease, unspecified; R15.9 Full incontinence of feces; F17.210 Nicotine dependence, cigarettes, uncomplicated; Z72.821 Inadequate sleep hygiene; Z91.199 Patient's noncompliance with other medical treatment and regimen due to unspecified reason; K52.9 Noninfective gastroenteritis and colitis, unspecified; K59.00 Constipation, unspecified
CPT/HCPCS: 36415; 36569; 71045; 74018; 74177; 74250; 76937; 80048; 80053; 82947; 83735; 84100; 84134; 84478; 85025; 85027; 87070; 87077; 87081; 87186; 87205; 88309; 94640; 94664; 94760

== ENCOUNTER 2023-08-21 03:37 | Observation (INO) | payer MEDICAID ==
[2023-08-21] VITALS (7 sets, daily range): BP systolic 97–130; BP diastolic 50–77
[~2023-08-21] VITALS: Ht 97.5 cm; Wt 62.8 kg
[~2023-08-21 03:37] MED LIST changes: -PREG75CA75 PO; +PREG75CA76 PO
[2023-08-21 04:09] LABS: BASOPHILS % (AUTO) 0 % (0-10); EOSINOPHILS % (AUTO) 0 % (0-10); HEMATOCRIT 38 % (40-54); HEMOGLOBIN 12.4 g/dL (13.3-17.7); LYMPHOCYTES # (AUTO) 1.3 10^3/uL (1.0-4.0); LYMPHOCYTES % (AUTO) 16 % (12-44); MEAN CORPUSCULAR HEMOGLOBIN 28 pg (25-34); MEAN CORPUSCULAR HGB CONC 33 g/dL (32-36); MEAN CORPUSCULAR VOLUME 84 fL (80-99); MONOCYTES # (AUTO) 0.9 10^3/uL (0.0-1.0); MONOCYTES % (AUTO) 11 % (0-12); NEUTROPHILS # (AUTO) 5.9 10^3/uL (1.8-7.8); NEUTROPHILS % (AUTO) 72 % (42-75); PLATELET COUNT 225 10^3/uL (130-400); WHITE BLOOD COUNT 8.2 10^3/uL (4.3-11.0)
--- NOTE | 2023-08-21 04:12 | ED General ---
General Chief Complaint: General Problems/Pain Stated Complaint: GENERALIZED COMPLAINTS Nursing Triage Note: Pt presents with c/o feeling like he has an infection. Pt states his has been stating he's not making sense at home. EMS reports they have been to his home multiple times during the day yesterday. Source of Information: Patient, EMS Exam Limitations: No Limitations History of Present Illness Date Seen by Provider: Aug 21, 2023 Time Seen by Provider: 04:48 Initial Comments Patient is a 43-year-old male who presents to the emergency department with a concern of having a wound infection on his buttocks or posterior thighs. According to EMS they state that they have been to his home multiple times over the last 24 hours. Various complaints ranging from falling out of his wheelchair to wanting EMS to change his ostomy bag to assistance with cleaning. Patient relates that his said that he was not making much sense today. He states he feels like he is dehydrated. He states he did not eat this evening but he is not nauseous, he has no abdominal pain. He states he has normal ostomy output at least 2-3 times a day. No dysuria, urgency or frequency. He states his urine is darker than it normally is. Has pain related to the skin wounds at his buttocks and posterior thighs. Appears alert and oriented. Is answering questions appropriately. Does not appear to be responding to internal stimuli or hallucinating. Blood sugar 150s. Normal blood pressure, tachycardic 124. Temperature orally 99.8. Patient states that he was released from an LTAC facility in [place] about 3 weeks ago. He was placed there after prolonged hospitalization here at [facility] after subtotal colectomy and ileostomy placement. Timing/Duration: Other (unknown) Associated Systoms: Other (concern for infection to posterior thighs) Allergies and Home Medications Allergies Coded Allergies: No Known Drug Allergies (Unverified , 08/04/21) He denies allergies to drugs and food, says he has seasonal allergies Patient Home Medication List Home Medication List Reviewed: Yes Miconazole Nitrate (Lotrimin AF) 2 % Powder, 0 GM TOP BID Prescribed by: ATIF LIND on 05/27/23 0932 Pregabalin (Pregabalin) 75 Mg Capsule, 75 MG PO BID PRN for PAIN-BREAKTHROUGH Prescribed by: ATIF LIND on 05/27/23 2456 Review of Systems Review of Systems Constitutional: see HPI, other ("i think im dehydrated") EENTM: no symptoms reported Respiratory: no symptoms reported Cardiovascular: no symptoms reported Gastrointestinal: no symptoms reported Genitourinary: other (urine is darker than normal) Skin: other (skin wounds) All Other Systems Reviewed Negative Unless Noted: Yes Past Lqdazuj-Utfmdy-Rgnhnr Hx Immunizations Up To Date First/Initial COVID19 Vaccinat: none Second COVID19 Vaccination Bear: DOESN'T PLAN ON TAKING IT Third COVID19 Vaccination Date: DOESN'T PLAN ON TAKING IT Seasonal Allergies Seasonal Allergies: Yes Past Medical History Surgery/Hospitalization HX: dental extraction, bilateral aka, vascular disease, non-compliance, bowel obstruction. 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 -ALL TEETH REMOVED -HERNIA REPAIR Physical Exam Vital Signs Vital Signs - First Documented 08/21/23 03:42 Temp 37.7 Pulse 112 Resp 16 B/P (MAP) 126/77 (93) Capillary Refill : Less Than 3 Seconds Height, Weight, BMI Height: '" Weight: lbs. oz. kg; 45.44 BMI Method: General Appearance: No Apparent Distress, Chronically ill, Other (filthy shirt and pants; dirty, dishevelled and unkempt) Eyes: Bilateral Eye Normal Inspection, Bilateral Eye PERRL HEENT: Other (very dry oral mucosa, dry cracked lips) Neck: Full Range of Motion Respiratory: Lungs Clear, Normal Breath Sounds, No Accessory Muscle Use, No Respiratory Distress Cardiovascular: Regular Rate, Rhythm, Systolic Murmur, Tachycardia (124) Gastrointestinal: Normal Bowel Sounds, Soft Back: Normal Inspection Neurologic/Psychiatric: Alert, Oriented x3, No Motor/Sensory Deficits, Normal Mood/Affect Skin: Warm/Dry, Pallor, Other (patient is covered in fecal matter from abd to genitalia; dried and caked in pubic hair. has stage 1-2 skin breakdown buttocks and posterior thighs. does not appear infected. no active drainage or deep wounds. (appears actually in the best condition I have seen it in months)) Progress/Results/Core Measures Suspected Sepsis SIRS Temperature: Pulse: 112 Respiratory Rate: 16 Laboratory Tests 08/21/23 04:00: White Blood Count 8.2 Blood Pressure 126 /77 Mean: 93 Laboratory Tests 08/21/23 04:00: Creatinine 0.63, Platelet Count 225, Total Bilirubin 1.0 Results/Orders Lab Results Laboratory Tests Test 08/21/23 03:56 08/21/23 04:00 08/21/23 04:14 Range/Units Glucometer 157 H 70-110 MG/DL White Blood Count 8.2 4.3-11.0 10^3/uL Red Blood Count 4.49 4.30-5.52 10^6/uL Hemoglobin 12.4 L 13.3-17.7 g/dL Hematocrit 38 L 40-54 % Mean Corpuscular Volume 84 80-99 fL Mean Corpuscular Hemoglobin 28 25-34 pg Mean Corpuscular Hemoglobin Concent 33 32-36 g/dL Red Cell Distribution Width 15.8 H 10.0-14.5 % Platelet Count 225 130-400 10^3/uL Mean Platelet Volume 9.0 9.0-12.2 fL Immature Granulocyte % (Auto) 0 % Neutrophils (%) (Auto) 72 42-75 % Lymphocytes (%) (Auto) 16 12-44 % Monocytes (%) (Auto) 11 0-12 % Eosinophils (%) (Auto) 0 0-10 % Basophils (%) (Auto) 0 0-10 % Neutrophils # (Auto) 5.9 1.8-7.8 10^3/uL Lymphocytes # (Auto) 1.3 1.0-4.0 10^3/uL Monocytes # (Auto) 0.9 0.0-1.0 10^3/uL Eosinophils # (Auto) 0.0 0.0-0.3 10^3/uL Basophils # (Auto) 0.0 0.0-0.1 10^3/uL Immature Granulocyte # (Auto) 0.0 0.0-0.1 10^3/uL Sodium Level 137 135-145 MMOL/L Potassium Level 2.4 *L 3.6-5.0 MMOL/L Chloride Level 102 98-107 MMOL/L Carbon Dioxide Level 22 21-32 MMOL/L Anion Gap 13 5-14 MMOL/L Blood Urea Nitrogen 9 7-18 MG/DL Creatinine 0.63 0.60-1.30 MG/DL Estimat Glomerular Filtration Rate 121 BUN/Creatinine Ratio 14 Glucose Level 142 H 70-105 MG/DL Calcium Level 9.1 8.5-10.1 MG/DL Total Bilirubin 1.0 0.1-1.0 MG/DL Direct Bilirubin 0.5 H 0.0-0.3 MG/DL Indirect Bilirubin 0.5 MG/DL Aspartate Amino Transf (AST/SGOT) 51 H 5-34 U/L Alanine Aminotransferase (ALT/SGPT) 33 0-55 U/L Alkaline Phosphatase 127 40-136 U/L Total Protein 6.7 6.4-8.2 GM/DL Albumin 3.5 3.2-4.5 GM/DL Serum Alcohol < 10 <10 MG/DL Urine Color DARK YELLOW Urine Clarity CLEAR Urine pH 5.5 5-9 Urine Specific [place] >=1.030 1.016-1.022 Urine Protein 3+ H NEGATIVE Urine Glucose (UA) NEGATIVE NEGATIVE Urine Ketones 2+ H NEGATIVE Urine Nitrite POSITIVE H NEGATIVE Urine Bilirubin 3+ H NEGATIVE Urine Urobilinogen 1.0 < = 1.0 MG/DL Urine Leukocyte Esterase NEGATIVE NEGATIVE Urine RBC (Auto) TRACE H NEGATIVE Urine RBC RARE /HPF Urine WBC NONE /HPF Urine Squamous Epithelial Cells RARE /HPF Urine Crystals PRESENT H /LPF Urine Calcium Oxalate Crystals FEW H /LPF Urine Bacteria TRACE /HPF Urine Casts PRESENT /LPF Urine Hyaline Casts RARE /LPF Urine Mucus MODERATE H /LPF Urine Culture Indicated YES Urine Opiates Screen POSITIVE H NEGATIVE Urine Oxycodone Screen NEGATIVE NEGATIVE Urine Methadone Screen NEGATIVE NEGATIVE Urine Propoxyphene Screen NEGATIVE NEGATIVE Urine Barbiturates Screen NEGATIVE NEGATIVE Ur Tricyclic Antidepressants Screen NEGATIVE NEGATIVE Urine Phencyclidine Screen NEGATIVE NEGATIVE Urine Amphetamines Screen NEGATIVE NEGATIVE Urine Methamphetamines Screen NEGATIVE NEGATIVE Urine Benzodiazepines Screen NEGATIVE NEGATIVE Urine Cocaine Screen NEGATIVE NEGATIVE Urine Cannabinoids Screen NEGATIVE NEGATIVE My Orders Orders - KYE FINCH MD Ed Iv/Invasive Line Start (08/21/23 04:03) Cbc And Automated Diff (08/21/23 04:03) Basic Metabolic Panel (08/21/23 04:03) Ua Culture If Indicated (08/21/23 04:03) Acetaminophen Tablet (Acetaminophen Ta (08/21/23 04:15) Alcohol (08/21/23 04:03) Drug Screen Stat (Urine) (08/21/23 04:03) Urine Culture (08/21/23 04:14) Ns Iv 1000 Ml (Ns Iv 1000 Ml) (08/21/23 05:00) Potassium Cl 10meq/50ml Ivpb (Kcl 10 Meq (08/21/23 05:00) Liver Panel (08/21/23 04:49) Ekg Tracing (08/21/23 05:11) Magnesium (08/21/23 05:11) Medications Given in ED Current Medications Medications Dose Ordered Sig/Bill Route Start Time Stop Time Status Last Admin Dose Admin Acetaminophen 1,000 mg ONCE ONCE PO 08/21/23 04:15 08/21/23 04:16 DC 08/21/23 04:13 1,000 MG Vital Signs/I&O 08/21/23 08/21/23 03:42 04:13 Temp 37.7 37.7 Pulse 112 Resp 16 B/P (MAP) 126/77 (93) Capillary Refill : Less Than 3 Seconds Blood Pressure Mean: 93 Progress Note : Time: 05:10 Progress Note Patient seen and evaluated by me. Evaluation today includes physical exam, CBC, Chem-12, urinalysis, serum magnesium, EKG, alcohol level, urine drug screen. P ertinent physical exam findings well-developed male in no acute distress. Very filthy dirty, wearing dirty close with fecal matter on his pants. Speaks with eyes closed - appears possibly to be intoxicated? Patient is tachycardic with a heart rate of 1 20-1 25. Normal blood pressure. Is not hypoxic. Temperature of 99.8 orally. Has very dry oral mucosa. He does have systolic murmur heard best at the upper sternal borders bilaterally. Lungs are clear. Abdomen is soft, ostomy bag in place, covered in stool. He has chronic healing sacral decubiti and wounds to the posterior thighs. These do not appear infected at this time, no drainage or cellulitic change. Differential diagnosis includes dehydration, metabolic derangement, acute renal failure, bacteremia?, Intoxication. Patient's labs independently reviewed and interpreted by me. His CBC shows a white blood cell count of 8.2 with hemoglobin 12.4, hematocrit of 38, normal platelets at 225. Serum chemistry remarkable for low potassium at 2.4, blood sugar 142. Otherwise unremarkable. His urine drug screen is positive for opiates, alcohol is undetectable. Urinalysis is very concentrated with specific gravity greater than 1.030 positive nitrite, 3+ bilirubin. No white blood cells or bacteria are present. Patient initially treated with a liter of lactated Ringer's and a gram of Tylenol. Once I saw the urine I added on a liver panel. Also added mag once potassium was found to be low as well as the EKG. EKG is pending at this time. Will discuss with Dr. Lind on for the hospitalist service for admission observation for potassium replacement. No concerning findings at this time for acute renal failure as he has normal renal function. He is quite dehydrated, normal saline running with potassium supplementation, initially ordered to 10 mEq flashes. His heart rate is improved at 104. Blood pressure 122/76. Currently satting 90% on room air. ECG Initial ECG Impression Date: Aug 21, 2023 Initial ECG Impression Time: 05:21 Initial ECG Rate: 99 Initial ECG Rhythm: S.Tach Initial ECG Intervals DE 134 QRS 94 QTc 437 Comment NSSTW changes; no U waves; no ectopy; no ST elevation or depression Departure Communication (Admissions) Time/Spoke to Admitting Phy: 05:[address] Lind (hospitalist) Admit obs; Impression Primary Impression: Hypokalemia Additional Impressions: Dehydration Medical non-compliance Disposition: ADMITTED INPATIENT Condition: Stable Admissions Decision to Admit Reason: Admit from ER (General) Decision to Admit/Date: Aug 21, 2023 Time/Decision to Admit Time: 05:13 Departure-Patient Inst. Referrals: NO,LOCAL PHYSICIAN (PCP/Family) Primary Care Physician KYE FINCH MD Aug 21, 2023 04:12
[2023-08-21] MEDS ORDERED: ACETAMINOPHEN 500 MG TABLET PO ONE (04:15)
[2023-08-21 04:20] LABS: CHLORIDE 102 MMOL/L (98-107); SODIUM 137 MMOL/L (135-145)
[2023-08-21 04:21] LABS: CALCIUM 9.1 MG/DL (8.5-10.1)
[2023-08-21 04:22] LABS: CLARITY,URINE CLEAR; COLOR,URINE DARK YELLOW; GLUCOSE, URINE (UA) NEGATIVE (NEGATIVE); KETONES,URINE 2+ (NEGATIVE); PH,URINE 5.5 (5-9); PROTEIN,URINE 3+ (NEGATIVE)
[2023-08-21 04:22] LABS: GLUCOSE 142 MG/DL (70-105)
[2023-08-21 04:23] LABS: CARBON DIOXIDE 22 MMOL/L (21-32)
[2023-08-21 04:23] LABS: LEUKOCYTE ESTERASE ,URINE NEGATIVE (NEGATIVE); NITRITE,URINE POSITIVE (NEGATIVE)
[2023-08-21 04:26] LABS: CREATININE SERUM 0.63 MG/DL (0.60-1.30); GFR ESTIMATED 121
[2023-08-21 04:27] LABS: BUN/CREATININE RATIO 14
[2023-08-21 04:28] LABS: BACTERIA,URINE TRACE /HPF; BILIRUBIN,URINE 3+ (NEGATIVE); CALCIUM OXALATE CRYSTALS,UR FEW /LPF; HYALINE CASTS, URINE RARE /LPF; RBC,URINE RARE /HPF; SQUAMOUS EPITHELIAL CELL,UR RARE /HPF
[2023-08-21 04:45] LABS: POTASSIUM 2.4 MMOL/L (3.6-5.0)
[2023-08-21 04:55] LABS: AMPHETAMINE SCREEN, URINE NEGATIVE (NEGATIVE); BARBITURATE SCREEN URINE NEGATIVE (NEGATIVE); CANNABINOID SCREEN, URINE NEGATIVE (NEGATIVE); COCAINE SCREEN URINE NEGATIVE (NEGATIVE); METHADONE STAT NEGATIVE (NEGATIVE); OPIATE SCREEN URINE POSITIVE (NEGATIVE); OXYCODONE STAT NEGATIVE (NEGATIVE); PROPOXYPHENE STAT NEGATIVE (NEGATIVE); TRICYCLIC ANTIDEPRESSANTS SCRE NEGATIVE (NEGATIVE)
[2023-08-21] MEDS: POTASSIUM CL 10MEQ/50ML IVPB 50 ML IV SCH ×9 (05:00→14:05)
[2023-08-21] MEDS: NS IV 1000 ML 1,000 ML IV SCH ×5 (05:00→19:37)
[2023-08-21 05:09] LABS: ALBUMIN 3.5 GM/DL (3.2-4.5)
[2023-08-21 05:11] LABS: TOTAL PROTEIN 6.7 GM/DL (6.4-8.2)
[2023-08-21 05:17] LABS: BILIRUBIN,DIRECT 0.5 MG/DL (0.0-0.3); BILIRUBIN,INDIRECT 0.5 MG/DL
[2023-08-21] MEDS ORDERED: BISACODYL 10 MG SUPPOSITORY PR PRN (06:30)
[2023-08-21] MEDS ORDERED: ACETAMINOPHEN 325 MG TABLET PO PRN (06:30)
[2023-08-21] MEDS ORDERED: diphenhydrAMINE INJ 50 MG/ML VIAL IVP PRN (06:30)
[2023-08-21] MEDS ORDERED: CALCIUM CARBONATE 500 MG CHEW TABLET PO PRN (06:30)
[2023-08-21] MEDS ORDERED: LACTULOSE SYRUP 10GM/15ML 30ML UDC PO PRN (06:30)
[2023-08-21] MEDS ORDERED: diphenhydrAMINE 25 MG TABLET PO PRN (06:30)
[2023-08-21] MEDS ORDERED: MELATONIN 3 MG TABLET PO PRN (06:30)
[2023-08-21] MEDS ORDERED: ONDANSETRON INJECTION 4 MG/2 ML (SDV) IV PRN (06:30)
[2023-08-21] MEDS ORDERED: HYDROmorphone INJECTION 2 MG/ML VIAL IV PRN (06:30)
[2023-08-21] MEDS ORDERED: ONDANSETRON 4 MG ORAL DISSOLVE TABLET PO PRN (06:30)
[2023-08-21] MEDS ORDERED: MILK OF MAGNESIA 400 MG/5 ML 30 ML UDC PO PRN (06:30)
[2023-08-21] MEDS ORDERED: ANTACID SUSPENSION 30 ML UDC PO PRN (06:30)
[2023-08-21] MEDS ORDERED: RT-ALBUTEROL SULF 2.5 MG/3 ML PRE-MIX VIAL INH PRN (07:00)
[2023-08-21] MEDS: MAGNESIUM 1 GM/100 ML IVPB 100 ML IV SCH ×2 (07:37→08:49)
[2023-08-21] MEDS: SENNOSIDES 8.6 MG TABLET PO SCH ×2 (08:58→21:29)
[2023-08-21] MEDS: DOCUSATE SODIUM 100 MG CAPSULE PO SCH ×2 (08:58→21:29)
[2023-08-21] MEDS ORDERED: HYPOCHLOROUS ACID/NaCl WOUND SOLN 250 ML IR SCH (09:15)
--- NOTE | 2023-08-21 09:19 | Progress Note ---
KARLOS GUNN 08/21/23 0919: Subjective Date Seen by a Provider: Aug 21, 2023 Time Seen by a Provider: 09:14 Subjective/Events-last exam Alex is a 43 year old male with history of total colectomy and bilateral knee amputations who presents with concern of having wounds on his buttocks and feeling like he is dehydrated. Patient today is feeling better, however, he is falling asleep while he talks. Patient denies nausea, vomitting, chest pain, shortness of breath, or fever. Patient was in a [facility] until 3 weeks ago. Alex is a 43 year old man with poor compliance who presented to the ER with concern on having wound infection on posterior thigh and buttocks. Patient saying he felt dehydrated upon presentation. Patient reported having pain secondary to his skin wounds at his buttocks and posterior thighs. Patient was found to be severely hypokalemic- and he was subsquenntly given IV fluids and potassium replacement. Wound care consulted to look at his posterior thigh and buttocks wound. His hospital course has been uncomplicated. Review of Systems General: No Chills, No Night Sweats HEENT: No Visual Changes Pulmonary: No Dyspnea Cardiovascular: No: Chest Pain Gastrointestinal: No: Nausea Genitourinary: No Dysuria Musculoskeletal: No: neck pain Neurological: No: Weakness Objective Exam Last Set of Vital Signs Vital Signs Date Time Temp Pulse Resp B/P (MAP) Pulse Ox O2 Delivery O2 Flow Rate FiO2 08/21/23 09:10 95 Room Air 0.00 08/21/23 08:03 37.2 92 16 130/69 (89) 08/21/23 06:36 21 Capillary Refill : Less Than 3 Seconds General: Alert, Oriented X3 HEENT: Atraumatic Neck: No JVD Lungs: Clear to Auscultation Heart: Regular Rate Abdomen: Normal Bowel Sounds Extremities: No Clubbing, No Cyanosis Neuro: Normal Speech, Strength at 5/5 X4 Ext Results Lab Laboratory Tests 08/21/23 03:56: Glucometer 157H 08/21/23 04:00: White Blood Count 8.2, Red Blood Count 4.49, Hemoglobin 12.4L, Hematocrit 38L, Mean Corpuscular Volume 84, Mean Corpuscular Hemoglobin 28, Mean Corpuscular Hemoglobin Concent 33, Red Cell Distribution Width 15.8H, Platelet Count 225, Mean Platelet Volume 9.0, Immature Granulocyte % (Auto) 0, Neutrophils (%) (Auto) 72, Lymphocytes (%) (Auto) 16, Monocytes (%) (Auto) 11, Eosinophils (%) (Auto) 0, Basophils (%) (Auto) 0, Neutrophils # (Auto) 5.9, Lymphocytes # (Auto) 1.3, Monocytes # (Auto) 0.9, Eosinophils # (Auto) 0.0, Basophils # (Auto) 0.0, Immature Granulocyte # (Auto) 0.0, Sodium Level 137, Potassium Level 2.4*L, Chloride Level 102, Carbon Dioxide Level 22, Anion Gap 13, Blood Urea Nitrogen 9, Creatinine 0.63, Estimat Glomerular Filtration Rate 121, BUN/Creatinine Ratio 14, Glucose Level 142H, Calcium Level 9.1, Magnesium Level 1.5L, Total Bilirubin 1.0, Direct Bilirubin 0.5H, Indirect Bilirubin 0.5, Aspartate Amino Transf (AST/SGOT) 51H, Alanine Aminotransferase (ALT/SGPT) 33, Alkaline Phosphatase 127, Total Protein 6.7, Albumin 3.5, Serum Alcohol < 10 08/21/23 04:14: Urine Color DARK YELLOW, Urine Clarity CLEAR, Urine pH 5.5, Urine Specific [place] >=1.030, Urine Protein 3+H, Urine Glucose (UA) NEGATIVE, Urine Ketones 2+H, Urine Nitrite POSITIVEH, Urine Bilirubin 3+H, Urine Urobilinogen 1.0, Urine Leukocyte Esterase NEGATIVE, Urine RBC (Auto) TRACEH, Urine RBC RARE, Urine WBC NONE, Urine Squamous Epithelial Cells RARE, Urine Crystals PRESENTH, Urine Calcium Oxalate Crystals FEWH, Urine Bacteria TRACE, Urine Casts PRESENT, Urine Hyaline Casts RARE, Urine Mucus MODERATEH, Urine Culture Indicated YES, Urine Opiates Screen POSITIVEH, Urine Oxycodone Screen NEGATIVE, Urine Methadone Screen NEGATIVE, Urine Propoxyphene Screen NEGATIVE, Urine Barbiturates Screen NEGATIVE, Ur Tricyclic Antidepressants Screen NEGATIVE, Urine Phencyclidine Screen NEGATIVE, Urine Amphetamines Screen NEGATIVE, Urine Methamphetamines Screen NEGATIVE, Urine Benzodiazepines Screen NEGATIVE, Urine Cocaine Screen NEGATIVE, Urine Cannabinoids Screen NEGATIVE Assessment/Plan Assessment/Plan Assess & Plan/Chief Complaint Assessment: Severe hypokalemia Poor compliance Bilateral above knee amputee Bilateral thigh wounds Plan: Consult Wound Care IV electrolytes IV fluids Clinical Quality Measures DVT/VTE Risk/Contraindication: Contraindications-Mechi: Other *list below* Other: b/l SVIA MARYANNE LIND DO 08/22/23 0505: Subjective Subjective/Events-last exam CC: Weakness with hypokalemia HPI: This is a 43yoWM who has h/o bilateral AKA's and just released from LTAC 2 weeks ago who presented the above complaints. He remains lethargic but continues to ask for pain meds. Overall prognosis remains poor since he still rejects idea of [facility]. Objective Exam General: Alert Lungs: Clear to Auscultation Heart: Regular Rate Assessment/Plan Assessment/Plan Assess & Plan/Chief Complaint replace potassium Supervisory-Addendum Brief Verification & Attestation Participated in pt care: history, MDM, physical Personally performed: exam, history, MDM, supervision of care Care discussed with: Medical Student Procedures: n/a Results interpretation: Verified all documentation Verification and Attestation of Medical Student E/M Service A medical student performed and documented this service in my presence. I reviewed and verified all information documented by the medical student and made modifications to such information, when appropriate. I personally performed the physical exam and medical decision making. Maryanne Lind, Aug 22, 2023,05:01 KARLOS GUNN Aug 21, 2023 09:19 MARYANNE LIND DO Aug 22, 2023 05:05
--- NOTE | 2023-08-21 09:26 | Wound Care Assessment ---
Wound Care Assessment Date Seen by Provider: Aug 21, 2023 Time Seen by Provider: 08:30 Chief Complaint Wounds on posterior thigh and buttocks HPI Our patient is a 43 yo M who presents with multiple, chronic wounds on his posterior thighs and buttocks. He has a history of severe arterial disease as well as 2x BKAs and ileostomy placement. He is a 2-3 pack-a-day smoker and has a history of chronic alcohol abuse. In addition, he has a known difficulty maintaining proper hygiene that contributed substantially to his current admission. He notes pain in his bilateral lower extremities but only roused briefly during today's exam and interview. Past Medical History: Admits Deep Vein Thrombosis, Admits Peripheral Artery Disease Smoking Status: Current Everyday Smoker (2-3 packs) Alcohol Use: Regular Use Review of Systems General: Fatigue Musculoskeletal: back pain (buttock), leg pain (Posterior, bilaterally) Neurological: Weakness, Confusion Exam Vital Signs Date Time Temp Pulse Resp B/P (MAP) Pulse Ox O2 Delivery O2 Flow Rate FiO2 08/21/23 09:10 95 Room Air 0.00 08/21/23 08:03 37.2 92 16 130/69 (89) 08/21/23 06:36 21 Capillary Refill : Less Than 3 Seconds General Appearance: mild distress Respiratory: no respiratory distress, no accessory muscle use Back: other (Erythema, tenderness to palpation, and skin erosion noted on buttocks) Extremities: other (Bilateral, below the knee amputations noted. Erythema, swelling, and ulceration noted in bilateral posterior lower extremities.) Neurologic/Psychiatric: other (Only briefly rousable during today's exam) Skin Problem Location: torso (Buttocks), lower extremities (Bilateral) Skin Character: erythema, lesion, tenderness Large area of erythema and erosion noted on bilateral posterior lower extremities that continue proximally to the skin of the buttocks. Two open areas noted. Right posterior thigh ulcer approximately measures 2 x 3 x 0.1 cm. Left posterior thigh ulcer approximately measures 5 x 6 x 0.1 cm. Primary etiology is moisture associated skin damage, secondary etiology is a pressure. No tunnelling or undermining noted. Wound margins are flat. Presence of stool noted on posterior buttocks and thighs. Results Laboratory Tests 08/21/23 03:56: Glucometer 157H 08/21/23 04:00: White Blood Count 8.2, Red Blood Count 4.49, Hemoglobin 12.4L, Hematocrit 38L, Mean Corpuscular Volume 84, Mean Corpuscular Hemoglobin 28, Mean Corpuscular Hemoglobin Concent 33, Red Cell Distribution Width 15.8H, Platelet Count 225, Mean Platelet Volume 9.0, Immature Granulocyte % (Auto) 0, Neutrophils (%) (Auto) 72, Lymphocytes (%) (Auto) 16, Monocytes (%) (Auto) 11, Eosinophils (%) (Auto) 0, Basophils (%) (Auto) 0, Neutrophils # (Auto) 5.9, Lymphocytes # (Auto) 1.3, Monocytes # (Auto) 0.9, Eosinophils # (Auto) 0.0, Basophils # (Auto) 0.0, Immature Granulocyte # (Auto) 0.0, Sodium Level 137, Potassium Level 2.4*L, Ch loride Level 102, Carbon Dioxide Level 22, Anion Gap 13, Blood Urea Nitrogen 9, Creatinine 0.63, Estimat Glomerular Filtration Rate 121, BUN/Creatinine Ratio 14, Glucose Level 142H, Calcium Level 9.1, Magnesium Level 1.5L, Total Bilirubin 1.0, Direct Bilirubin 0.5H, Indirect Bilirubin 0.5, Aspartate Amino Transf (AST/SGOT) 51H, Alanine Aminotransferase (ALT/SGPT) 33, Alkaline Phosphatase 127, Total Protein 6.7, Albumin 3.5, Serum Alcohol < 10 08/21/23 04:14: Urine Color DARK YELLOW, Urine Clarity CLEAR, Urine pH 5.5, Urine Specific [place] >=1.030, Urine Protein 3+H, Urine Glucose (UA) NEGATIVE, Urine Ketones 2+H, Urine Nitrite POSITIVEH, Urine Bilirubin 3+H, Urine Urobilinogen 1.0, Urine Leukocyte Esterase NEGATIVE, Urine RBC (Auto) TRACEH, Urine RBC RARE, Urine WBC NONE, Urine Squamous Epithelial Cells RARE, Urine Crystals PRESENTH, Urine Calcium Oxalate Crystals FEWH, Urine Bacteria TRACE, Urine Casts PRESENT, Urine Hyaline Casts RARE, Urine Mucus MODERATEH, Urine Culture Indicated YES, Urine Opiates Screen POSITIVEH, Urine Oxycodone Screen NEGATIVE, Urine Methadone Screen NEGATIVE, Urine Propoxyphene Screen NEGATIVE, Urine Barbiturates Screen NEGATIVE, Ur Tricyclic Antidepressants Screen NEGATIVE, Urine Phencyclidine Screen NEGATIVE, Urine Amphetamines Screen NEGATIVE, Urine Methamphetamines Screen NEGATIVE, Urine Benzodiazepines Screen NEGATIVE, Urine Cocaine Screen NEGATIVE, Urine Cannabinoids Screen NEGATIVE Assessment/Plan/Dx Bilateral wounds of lower extremities and buttocks -Wounds are primarily related to MASD, pressure, and poor hygiene -Clean wounds with vashe solution -Apply silver alginate dressing to open areas -Apply border foam -Barrier ointment to non-open, eroded areas along the posterior thighs and buttocks -Wound healing will be very difficult due to patient's personal hygiene, severe arterial disease, and continued tobacco and alcohol abuse Supervisory-Addendum Brief Verification & Attestation Participated in pt care: history, MDM, physical Personally performed: exam, history, MDM, supervision of care Care discussed with: Medical Student Procedures: n/a Results interpretation: Verified all documentation MD TEJA Hernandez JOSEPH D Aug 21, 2023 09:26 HARLEEN SMITH MD Aug 21, 2023 10:30
[2023-08-21] MEDS: ENOXAPARIN 40 MG/0.4 ML SYRINGE SC SCH (09:56)
[2023-08-21] MEDS: oxyCODONE IMMEDIATE RELEASE 5 MG TABLET PO PRN (15:56)
[2023-08-21] MEDS: inSUlin ASPART 1 UNIT/0.01 ML (PER UNIT) SC SCH ×2 (16:11→21:29)
[2023-08-22] MEDS: oxyCODONE IMMEDIATE RELEASE 5 MG TABLET PO PRN ×2 (01:14→05:52)
[2023-08-22] MEDS: NS IV 1000 ML 1,000 ML IV SCH ×2 (03:43→15:02)
[2023-08-22 04:17] VITALS: BP 97/55
--- NOTE | 2023-08-22 05:09 | History & Physical ---
History of Present Illness HPI/Chief Complaint Inadvertently missed H&P and placed progress note instead CC: Alex is a 43 year old male with history of total colectomy and bilateral knee amputations who presents with concern of having wounds on his buttocks and feeling like he is dehydrated. Patient today is feeling better, however, he is falling asleep while he talks. Patient denies nausea, vomitting, chest pain, shortness of breath, or fever. Patient [facility] in [facility] until 3 weeks ago. Alex is a 43 year old man with poor compliance who presented to the ER with concern on having wound infection on posterior thigh and buttocks. Patient s aying he felt dehydrated upon presentation. Patient reported having pain secondary to his skin wounds at his buttocks and posterior thighs. Patient was found to be severely hypokalemic- and he was subsquenntly given IV fluids and potassium replacement. Wound care consulted to look at his posterior thigh and buttocks wound. His hospital course has been uncomplicated. Source: patient, RN/MD, old records Exam Limitations: clinical condition Date Seen 08/21/23 Time Seen by a Provider: 11:00 Attending Physician No,Local Physician PCP Admitting Physician: Maryanne Cordova DO Attending Physician: Maryanne Cordova DO Referring Physician Date of Admission Aug 21, 2023 at 05:53 Home Medications & Allergies Home Medications Reviewed patient Home Medication Reconciliation performed by pharmacy medication reconciliations controls technician and/or nursing. Patients Allergies have been reviewed. Allergies Allergies Coded Allergies No Known Drug Allergies ([id number]/9/21) He denies allergies to drugs and food, says he has seasonal allergies Past Dzwxgge-Xcwwgr-Xobgxz Hx Past Med/Social Hx: Reviewed Nursing Past Med/Soc Hx, Reviewed and Corrections made Patient Social History Marrital Status: Employed/Student: employed Alcohol Use: Denies Use Smoking Status: Current Everyday Smoker (2-3 packs) Type Used: Cigarettes Recent Hopitalizations: Yes Seasonal Allergies Seasonal Allergies: Yes Past Medical History Surgeries: Abdominal, Amputation, Orthopedic Currently Using CPAP: No Currently Using BIPAP: No Cardiac: Chronic Edema/Swelling, Deep Vein Thrombosis, Peripheral Vascular Neurological: Neuropathy Gastrointestinal: Chronic Diarrhea Musculoskeletal: Amputee Loss of Vision: Denies Hearing Impairment: Denies Skin/Integumentary: Psoriasis History of Blood Disorders: Yes (DVT'S) Family History Other Conditions/Hx EXTREME NON-COMPLIANCE IN ALL ASPECTS OF CARE SOCIAL HISTORY: -SMOKES 2-3 PPD -ETOH--DRINKS 1.75 LITERS OF HARD LIQUOR DAILY--STATES LATELY HE HAS ONLY BEEN DRINKING "3 OR 4 GLASSES" OF HARD LIQUOR/DAY. 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 -ALL TEETH REMOVED -HERNIA REPAIR Review of Systems Constitutional: see HPI, weakness Physical Exam Physical Exam Vital Signs Vital Signs - First Documented 08/21/23 08/21/23 08/21/23 08/21/23 03:42 06:24 06:36 09:10 Temp 37.7 Pulse 112 Resp 16 B/P (MAP) 126/77 (93) Pulse Ox 98 O2 Delivery Room Air O2 Flow Rate 0.00 FiO2 21 Capillary Refill : Less Than 3 Seconds Height, Weight, BMI Height: '" Weight: lbs. oz. kg; 59.01 BMI Method: General Appearance: No Apparent Distress, Chronically ill, Other (filthy shirt and pants; dirty, dishevelled and unkempt) Eyes: Bilateral Eye Normal Inspection, Bilateral Eye PERRL HEENT: Other (very dry oral mucosa, dry cracked lips) Neck: Full Range of Motion Respiratory: Lungs Clear, Normal Breath Sounds, No Accessory Muscle Use, No Respiratory Distress Cardiovascular: Regular Rate, Rhythm, Systolic Murmur, Tachycardia (124) Gastrointestinal: Normal Bowel Sounds, Soft Back: Normal Inspection Neurologic/Psychiatric: Alert, Oriented x3, No Motor/Sensory Deficits, Normal Mood/Affect Skin: Warm/Dry, Pallor, Other (patient is covered in fecal matter from abd to genitalia; dried and caked in pubic hair. has stage 1-2 skin breakdown buttocks and posterior thighs. does not appear infected. no active drainage or deep wounds. (appears actually in the best condition I have seen it in months)) Results Results/Procedures Labs Laboratory Tests 08/21/23 04:00 Patient resulted labs reviewed. Assessment/Plan Admission Diagnosis Assessment: Weakness Hypokalemia Dehydration Bilateral AKA's h/o partial colon resection Plan: IVF Potassium replacement Admission Status: Observation Clinical Quality Measures DVT/VTE Risk/Contraindication: Contraindications-Mechi: Other *list below* Other: b/l MARYANNE CÁRDENAS DO Aug 22, 2023 05:09
[2023-08-22] MEDS: inSUlin ASPART 1 UNIT/0.01 ML (PER UNIT) SC SCH ×2 (05:50→12:44)
[2023-08-22 06:11] LABS: BASOPHILS % (AUTO) 1 % (0-10); EOSINOPHILS # (AUTO) 0.2 10^3/uL (0.0-0.3); EOSINOPHILS % (AUTO) 4 % (0-10); HEMATOCRIT 31 % (40-54); HEMOGLOBIN 10.2 g/dL (13.3-17.7); LYMPHOCYTES # (AUTO) 1.5 10^3/uL (1.0-4.0); LYMPHOCYTES % (AUTO) 34 % (12-44); MEAN CORPUSCULAR HEMOGLOBIN 28 pg (25-34); MEAN CORPUSCULAR HGB CONC 33 g/dL (32-36); MEAN CORPUSCULAR VOLUME 86 fL (80-99); MEAN PLATELET VOLUME 9.4 fL (9.0-12.2); MONOCYTES # (AUTO) 0.5 10^3/uL (0.0-1.0); MONOCYTES % (AUTO) 10 % (0-12); NEUTROPHILS # (AUTO) 2.2 10^3/uL (1.8-7.8); NEUTROPHILS % (AUTO) 51 % (42-75); PLATELET COUNT 158 10^3/uL (130-400); WHITE BLOOD COUNT 4.4 10^3/uL (4.3-11.0)
[2023-08-22 06:33] LABS: ALBUMIN 2.7 GM/DL (3.2-4.5); BILIRUBIN,TOTAL 0.3 MG/DL (0.1-1.0); CALCIUM 7.6 MG/DL (8.5-10.1); CREATININE SERUM 0.49 MG/DL (0.60-1.30); POTASSIUM 3.4 MMOL/L (3.6-5.0); TOTAL PROTEIN 4.9 GM/DL (6.4-8.2)
[2023-08-22 07:38] VITALS: BP 98/58
--- NOTE | 2023-08-22 08:14 | Progress Note ---
KARLOS GUNN 08/22/23 0814: Subjective Date Seen by a Provider: Aug 22, 2023 Time Seen by a Provider: 08:14 Subjective/Events-last exam Alex is a 43 year old male with history of total colectomy and bilateral knee amputation who is here with wounds and feeling of dehydration. Today the patient is doing much better. He is complaining of leg pain today. Says it is a 6/10 and is requesting pain medication. Patient is more alert and oriented than yesterday, not falling asleep while I talk to him today. He says his dehydration is much improved. Patient denies nausea, chills, fever, vomiting. Alex is a 43 year old male who presents to the ED with a primary complaint of dehydration and having a wound infection on his posterior thigh and buttocks. Patient presented and was highly hypokalemic- was released from a LTAC facility in [place] three weeks ago. Patient had no dysuria, urgency, or frequency upon presentation. Patient has a history of poor compliance. Patient throughout his stay was given IV fluids, potassium replacements, and pain control. Wound care consulted to look at his posterior thigh and buttocks wound. His hospital course has been uncomplicated. Focused Exam Sepsis Stage: Ruled Out Objective Exam Last Set of Vital Signs Vital Signs Date Time Temp Pulse Resp B/P (MAP) Pulse Ox O2 Delivery O2 Flow Rate FiO2 08/22/23 07:38 36.7 64 18 98/58 (71) 97 Room Air 08/21/23 19:30 0.00 08/21/23 06:36 21 Capillary Refill : Less Than 3 Seconds I&O Intake and Output 08/22/23 00:00 Intake Total 2640 ml Output Total 1100 ml Balance 1540 ml Intake Oral 1040 ml IV Total 1600 ml Output Urine Total 1000 ml Stool Total 100 ml # Bowel Movements 2 Daily Weight Change No General: Alert, Oriented X3, Cooperative HEENT: Atraumatic, PERRLA Neck: Supple, No JVD Lungs: Clear to Auscultation Heart: Regular Rate Abdomen: Normal Bowel Sounds Extremities: No Clubbing Skin: Other (bilateral lower extremity wounds) Neuro: Normal Speech Results Lab Laboratory Tests 08/21/23 11:25: Glucometer 91 08/21/23 15:50: Glucometer 95 08/21/23 19:30: Glucometer 128H 08/22/23 05:43: Glucometer 107 08/22/23 05:50: White Blood Count 4.4, Red Blood Count 3.63L, Hemoglobin 10.2L, Hematocrit 31L, Mean Corpuscular Volume 86, Mean Corpuscular Hemoglobin 28, Mean Corpuscular Hemoglobin Concent 33, Red Cell Distribution Width 16.2H, Platelet Count 158, Mean Platelet Volume 9.4, Immature Granulocyte % (Auto) 1, Neutrophils (%) (Auto) 51, Lymphocytes (%) (Auto) 34, Monocytes (%) (Auto) 10, Eosinophils (%) (Auto) 4, Basophils (%) (Auto) 1, Neutrophils # (Auto) 2.2, Lymphocytes # (Auto) 1.5, Monocytes # (Auto) 0.5, Eosinophils # (Auto) 0.2, Basophils # (Auto) 0.0, Immature Granulocyte # (Auto) 0.0, Sodium Level 136, Potassium Level 3.4L, Chloride Level 108H, Carbon Dioxide Level 21, Anion Gap 7, Blood Urea Nitrogen 7, Creatinine 0.49L, Estimat Glomerular Filtration Rate 131, BUN/Creatinine Ratio 14, Glucose Level 100, Calcium Level 7.6L, Corrected Calcium 8.6, Total Bilirubin 0.3, Aspartate Amino Transf (AST/SGOT) 27, Alanine Aminotransferase (ALT/SGPT) 21, Alkaline Phosphatase 83, Total Protein 4.9L, Albumin 2.7L Assessment/Plan Assessment/Plan Assess & Plan/Chief Complaint Assessment: Hypokalemia Poor compliance Bilateral above knee amputee Bilateral thigh wounds Plan: Consult Wound Care IV electrolytes IV fluids Clinical Quality Measures DVT/VTE Risk/Contraindication: Contraindications-Mechi: Other *list below* Other: b/l MARYANNE CÁRDENAS DO 08/22/232101: Supervisory-Addendum Brief Verification & Attestation Participated in pt care: history, MDM, physical Personally performed: exam, history, MDM, supervision of care Care discussed with: Medical Student Procedures: n/a Results interpretation: Verified all documentation Verification and Attestation of Medical Student E/M Service A medical student performed and documented this service in my presence. I reviewed and verified all information documented by the medical student and made modifications to such information, when appropriate. I personally performed the physical exam and medical decision making. Maryanne Cordova, Aug 22, 2023,21:01 KARLOS GUNN Aug 22, 2023 08:14 MARYANNE CORDOVA DO Aug 22, 2023 21:02
[2023-08-22] MEDS: DOCUSATE SODIUM 100 MG CAPSULE PO SCH (09:19)
[2023-08-22] MEDS: SENNOSIDES 8.6 MG TABLET PO SCH (09:19)
[2023-08-22] MEDS: ENOXAPARIN 40 MG/0.4 ML SYRINGE SC SCH (09:19)
[2023-08-22] MEDS ORDERED: POTASSIUM CHLORIDE 20 MEQ TABLET PO ONE (11:00)
[2023-08-22 11:12] VITALS: BP 110/78
[2023-08-22] MEDS ORDERED: POTA-177 PO (11:15)
[2023-08-22] MEDS ORDERED: OXC5T PO (11:15)
--- NOTE | 2023-08-22 11:17 | Discharge Summary ---
Diagnosis/Chief Complaint Date of Admission Aug 21, 2023 at 05:53 Date of Discharge Discharge Date: Aug 22, 2023 Discharge Diagnosis Severe hypokalemia Dehydration Frail status Discharge Summary Discharge Physical Examination Allergies: Coded Allergies: No Known Drug Allergies (Unverified , 08/04/21) He denies allergies to drugs and food, says he has seasonal allergies Vitals & I&Os Vital Signs Date Time Temp Pulse Resp B/P (MAP) Pulse Ox O2 Delivery O2 Flow Rate FiO2 08/22/23 16:00 08/22/23 11:28 95 Room Air 08/22/23 11:12 36.7 64 18 08/21/23 19:30 0.00 08/21/23 06:36 21 General Appearance: Alert Respiratory: Clear to Auscultation Cardiovascular: Regular Rate Hospital Course Was the Problem List Reviewed?: Yes Alex is a 43 year old male who presents to the ED with a primary complaint of dehydration and having a wound infection on his posterior thigh and buttocks. Patient presented and was highly hypokalemic- was released from a LTAC facility in [place] three weeks ago. Patient had no dysuria, urgency, or frequency upon presentation. Patient has a history of poor compliance. Patient throughout his stay was given IV fluids, potassium replacements, and pain control. Wound care consulted to look at his posterior thigh and buttocks wound. His hospital course has been uncomplicated. Labs (last 24 hrs) Laboratory Tests 08/21/23 03:56: Glucometer 157H 08/21/23 04:00: White Blood Count 8.2, Red Blood Count 4.49, Hemoglobin 12.4L, Hematocrit 38L, Mean Corpuscular Volume 84, Mean Corpuscular Hemoglobin 28, Mean Corpuscular Hemoglobin Concent 33, Red Cell Distribution Width 15.8H, Platelet Count 225, Mean Platelet Volume 9.0, Immature Granulocyte % (Auto) 0, Neutrophils (%) (Auto) 72, Lymphocytes (%) (Auto) 16, Monocytes (%) (Auto) 11, Eosinophils (%) (Auto) 0, Basophils (%) (Auto) 0, Neutrophils # (Auto) 5.9, Lymphocytes # (Auto) 1.3, Monocytes # (Auto) 0.9, Eosinophils # (Auto) 0.0, Basophils # (Auto) 0.0, Immature Granulocyte # (Auto) 0.0, Sodium Level 137, Potassium Level 2.4*L, Chloride Level 102, Carbon Dioxide Level 22, Anion Gap 13, Blood Urea Nitrogen 9, Creatinine 0.63, Estimat Glomerular Filtration Rate 121, BUN/Creatinine Ratio 14, Glucose Level 142H, Calcium Level 9.1, Magnesium Level 1.5L, Total Bilirubin 1.0, Direct Bilirubin 0.5H, Indirect Bilirubin 0.5, Aspartate Amino Transf (AST/SGOT) 51H, Alanine Aminotransferase (ALT/SGPT) 33, Alkaline Phosphatase 127, Total Protein 6.7, Albumin 3.5, Serum Alcohol < 10 08/21/23 04:14: Urine Color DARK YELLOW, Urine Clarity CLEAR, Urine pH 5.5, Urine Specific Scheller >=1.030, Urine Protein 3+H, Urine Glucose (UA) NEGATIVE, Urine Ketones 2+H, Urine Nitrite POSITIVEH, Urine Bilirubin 3+H, Urine Urobilinogen 1.0, Urine Leukocyte Esterase NEGATIVE, Urine RBC (Auto) TRACEH, Urine RBC RARE, Urine WBC NONE, Urine Squamous Epithelial Cells RARE, Urine Crystals PRESENTH, Urine Calcium Oxalate Crystals FEWH, Urine Bacteria TRACE, Urine Casts PRESENT, Urine Hyaline Casts RARE, Urine Mucus MODERATEH, Urine Culture Indicated YES, Urine Opiates Screen POSITIVEH, Urine Oxycodone Screen NEGATIVE, Urine Methadone S creen NEGATIVE, Urine Propoxyphene Screen NEGATIVE, Urine Barbiturates Screen NEGATIVE, Ur Tricyclic Antidepressants Screen NEGATIVE, Urine Phencyclidine Screen NEGATIVE, Urine Amphetamines Screen NEGATIVE, Urine Methamphetamines Screen NEGATIVE, Urine Benzodiazepines Screen NEGATIVE, Urine Cocaine Screen NEGATIVE, Urine Cannabinoids Screen NEGATIVE 08/21/23 11:25: Glucometer 91 08/21/23 15:50: Glucometer 95 08/21/23 19:30: Glucometer 128H 08/22/23 05:43: Glucometer 107 08/22/23 05:50: White Blood Count 4.4, Red Blood Count 3.63L, Hemoglobin 10.2L, Hematocrit 31L, Mean Corpuscular Volume 86, Mean Corpuscular Hemoglobin 28, Mean Corpuscular Hemoglobin Concent 33, Red Cell Distribution Width 16.2H, Platelet Count 158, M irene Platelet Volume 9.4, Immature Granulocyte % (Auto) 1, Neutrophils (%) (Auto) 51, Lymphocytes (%) (Auto) 34, Monocytes (%) (Auto) 10, Eosinophils (%) (Auto) 4, Basophils (%) (Auto) 1, Neutrophils # (Auto) 2.2, Lymphocytes # (Auto) 1.5, Monocytes # (Auto) 0.5, Eosinophils # (Auto) 0.2, Basophils # (Auto) 0.0, Immature Granulocyte # (Auto) 0.0, Sodium Level 136, Potassium Level 3.4L, Chloride Level 108H, Carbon Dioxide Level 21, Anion Gap 7, Blood Urea Nitrogen 7, Creatinine 0.49L, Estimat Glomerular Filtration Rate 131, BUN/Creatinine Ratio 14, Glucose Level 100, Calcium Level 7.6L, Corrected Calcium 8.6, Total Bilirubin 0.3, Aspartate Amino Transf (AST/SGOT) 27, Alanine Aminotransferase (ALT/SGPT) 21, Alkaline Phosphatase 83, Total Protein 4.9L, Albumin 2.7L 08/22/23 11:11: Glucometer 108 Microbiology 08/21/23 Urine Culture - Final, Complete Gram Pos Mixed Bacterial Aleta Pending Labs Microbiology Date/Time Source Procedure Growth Status 08/21/23 04:14 Urine Clean Catch Urine Culture - Final Gram Pos Mixed Bacterial Aleta Complete Laboratory Tests 08/21/23 03:56: Glucometer 157 08/21/23 04:00: White Blood Count 8.2, Red Blood Count 4.49, Hemoglobin 12.4, Hematocrit 38, Mean Corpuscular Volume 84, Mean Corpuscular Hemoglobin 28, Mean Corpuscular Hemoglobin Concent 33, Red Cell Distribution Width 15.8, Platelet Count 225, Mean Platelet Volume 9.0, Immature Granulocyte % (Auto) 0, Neutrophils (%) (Auto) 72, Lymphocytes (%) (Auto) 16, Monocytes (%) (Auto) 11, Eosinophils (%) (Auto) 0, Basophils (%) (Auto) 0, Neutrophils # (Auto) 5.9, Lymphocytes # (Auto) 1.3, Monocytes # (Auto) 0.9, Eosinophils # (Auto) 0.0, Basophils # (Auto) 0.0, Immature Granulocyte # (Auto) 0.0, Sodium Level 137, Potassium Level 2.4, Chloride Level 102, Carbon Dioxide Level 22, Anion Gap 13, Blood Urea Nitrogen 9, Creatinine 0.63, Estimat Glomerular Filtration Rate 121, BUN/Creatinine Ratio 14, Glucose Level 142, Calcium Level 9.1, Magnesium Level 1.5, Total Bilirubin 1.0, Direct Bilirubin 0.5, Indirect Bilirubin 0.5, Aspartate Amino Transf (AST /SGOT) 51, Alanine Aminotransferase (ALT/SGPT) 33, Alkaline Phosphatase 127, Total Protein 6.7, Albumin 3.5, Serum Alcohol < 10 08/21/23 04:14: Urine Color DARK YELLOW, Urine Clarity CLEAR, Urine pH 5.5, Urine Specific Scheller >=1.030, Urine Protein 3+, Urine Glucose (UA) NEGATIVE, Urine Ketones 2+, Urine Nitrite POSITIVE, Urine Bilirubin 3+, Urine Urobilinogen 1.0, Urine Leukocyte Esterase NEGATIVE, Urine RBC (Auto) TRACE, Urine RBC RARE, Urine WBC NONE, Urine Squamous Epithelial Cells RARE, Urine Crystals PRESENT, Urine Calcium Oxalate Crystals FEW, Urine Bacteria TRACE, Urine Casts PRESENT, Urine Hyaline Casts RARE, Urine Mucus MODERATE, Urine Culture Indicated YES, Urine Opiates Screen POSITIVE, Urine Oxycodone Screen NEGATIVE, Urine Methadone Screen NEGATIVE, Urine Propoxyphene Screen NEGATIVE, Urine Barbiturates Screen NEGATIVE, Ur Tricyclic Antidepressants Screen NEGATIVE, Urine Phencyclidine Screen NEGATIVE, Urine Amphetamines Screen NEGATIVE, Urine Methamphetamines Screen NEGATIVE, Urine Benzodiazepines Screen NEGATIVE, Urine Cocaine Screen NEGATIVE, Urine Cannabinoids Screen NEGATIVE 08/21/23 11:25: Glucometer 91 08/21/23 15:50: Glucometer 95 08/21/23 19:30: Glucometer 128 08/22/23 05:43: Glucometer 107 08/22/23 05:50: White Blood Count 4.4, Red Blood Count 3.63, Hemoglobin 10.2, Hematocrit 31, Mean Corpuscular Volume 86, Mean Corpuscular Hemoglobin 28, Mean Corpuscular Hemoglobin Concent 33, Red Cell Distribution Width 16.2, Platelet Count 158, Mean Platelet Volume 9.4, Immature Granulocyte % (Auto) 1, Neutrophils (%) (Auto) 51, Lymphocytes (%) (Auto) 34, Monocytes (%) (Auto) 10, Eosinophils (%) (Auto) 4, Basophils (%) (Auto) 1, Neutrophils # (Auto) 2.2, Lymphocytes # (Auto) 1.5, Monocytes # (Auto) 0.5, Eosinophils # (Auto) 0.2, Basophils # (Auto) 0.0, Immature Granulocyte # (Auto) 0.0, Sodium Level 136, Potassium Level 3.4, Chloride Level 108, Carbon Dioxide Level 21, Anion Gap 7, Blood Urea Nitrogen 7, Creatinine 0.49, Estimat Glomerular Filtration Rate 131, BUN/Creatinine Ratio 14, Glucose Level 100, Calcium Level 7.6, Corrected Calcium 8.6, Total Bilirubin 0.3, Aspartate Amino Transf (AST/SGOT) 27, Alanine Aminotransferase (ALT/SGPT) 21, Alkaline Phosphatase 83, Total Protein 4.9, Albumin 2.7 08/22/23 11:11: Glucometer 108 Discharge Home Medications: Active Scripts Active Potassium Chloride 10 Meq Tab.er.prt 10 Meq PO DAILY Oxyir Tablet (Oxycodone HCl) 5 Mg Tab 5 Mg PO Q4HR PRN Instructions to patient/family Please see electronic discharge instructions given to patient. Clinical Quality Measures DVT/VTE Risk/Contraindication: Contraindications-Mechi: Other *list below* Other: b/l ATIF CÁRDENAS DO Aug 22, 2023 11:17
--- NOTE | 2023-08-22 11:18 | D/C HH Face to Face Order ---
D/C HH Face to Face Orders Reconcile Patient Problems Problems Reviewed?: Yes Instructions for Patient HH Patient Instructions/FollowUp: pcp 1 week Physician to follow Patient: pcp Discharge Diet for Home: No Restrictions Patient Problems: debility Patient Data-Allergies,Ht & Wt Patient Allergies: Coded Allergies: No Known Drug Allergies (Unverified , 08/04/21) He denies allergies to drugs and food, says he has seasonal allergies Home Health Need/Face to Face Date of Face to Face: Aug 22, 2023 Clinical Findings: Generalized weakness and fatigue, Instability, Muscle weakness I have seen Pt [id number]: Yes Discharged To: Home Diagnosis/Conditions: Debility Patient is Homebound due to: Muscle weakness Homebound Status Due to the above stated illness, injury or surgical procedure (medical condition or diagnosis) and associated clinical findings, the patient is homebound because of his/her inability to leave home except with aid of a supportive device and/or person AND leaving the home requires a considerable and taxing effort or is medically contraindicated. Pt req the following assistanc: [facility] Nursing Orders Home Health Services Order: [facility] Maintenance Technician-Evaluate & James at, Physical Therapy-Evaluate & Treat, Wound Care-Eval/Treat Home Health Infusion Therapy Line Start Date: Aug 21, 2023 Certify Stmt I certify that this patient is under my care and that I, a nurse practitioner or a physician; a podiatric assistant working with me, had a face to face encounter that - meets the physician face to face encounter requirements with this patient as dated. ATIF LIND DO Aug 22, 2023 11:18
[2023-08-22] MEDS ORDERED: POTASSIUM CHLORIDE 20 MEQ TABLET PO SCH (13:00)
== END 2023-08-22 11:13 | disposition home or self-care (01) ==
LOC: EDUNIT# 03:37 → ER 03:38 → UNDOADMOB 05:53 → 4TH 05:53 → UNDODISOB 08-22 11:13
PROVIDERS: ADMIT Internal Medicine; ATTEND Internal Medicine
DX: E87.6 Hypokalemia (principal); T81.89XA Other complications of procedures, not elsewhere classified, initial encounter; E86.0 Dehydration; R53.1 Weakness; F17.210 Nicotine dependence, cigarettes, uncomplicated; Z28.310 Unvaccinated for COVID-19; Z89.611 Acquired absence of right leg above knee; Z89.612 Acquired absence of left leg above knee; Z90.49 Acquired absence of other specified parts of digestive tract; Z91.199 Patient's noncompliance with other medical treatment and regimen due to unspecified reason
CPT/HCPCS: 80048; 80053; 80076; 80306; 81000; 82947 ×2; 83735; 85025 ×2; 87088; 93005; 94760 ×2; 96361; 96366; 96372 ×2; 96375; 96376; 99284; G0480; 36415; 80320; G0378